=== PATIENT | male | born 1955 | race Caucasian/White ===

== ENCOUNTER 2023-08-14 14:40 | Outpatient (CLI) | payer MEDICARE, BC, SELFPAY | END 2023-08-14 14:41 | disposition home or self-care (01) | LOC: AMB 08-19 15:08 | PROVIDERS: PCP Family Medicine; Visit Provider Family Medicine | DX: S09.93XA Unspecified injury of face, initial encounter (principal); V19.3XXA Pedal cyclist (driver) (passenger) injured in unspecified nontraffic accident, initial encounter; Y92.488 Other paved roadways as the place of occurrence of the external cause; Y93.55 Activity, bike riding | CPT/HCPCS: A0425; A0429; A0434 ==

== ENCOUNTER 2023-08-14 14:46 | Emergency (ER) | payer MEDICARE, BC, SELFPAY ==
[2023-08-14] VITALS (12 sets, daily range): BP systolic 128–159; BP diastolic 76–97; PULSE 77–130; RESP 12–19; TEMP 35.7; O2SAT 92–98; BMI 23.9
--- NOTE | 2023-08-14 | CRLHL7_ITS ---
For Patients: As a result of the Century Cures Act, medical imaging exams and procedure reports are released immediately into your electronic medical record. You may view this report before your referring provider. If you have questions, please contact your health care provider. INDICATION: Post intubation. TECHNIQUE: Chest 1 view. COMPARISON: Chest radiograph 08/14/2023 at 2:54 p.m. FINDINGS: Endotracheal tube with tip 5.4 cm above the bipin. No focal consolidation, pleural effusion, or pneumothorax. Normal heart size. Pulmonary vascular congestion. Chronic appearing deformity of the distal right clavicle. IMPRESSION: 1. Endotracheal tube with tip in satisfactory position. 2. Pulmonary vascular congestion. Dictated by Flory Santos MD @ 08/14/2023 3:43:12 PM (Electronically Signed)
--- NOTE | 2023-08-14 | CRLHL7_ITS ---
For Patients: As a result of the Century Cures Act, medical imaging exams and procedure reports are released immediately into your electronic medical record. You may view this report before your referring provider. If you have questions, please contact your health care provider. INDICATION: Injury COMPARISON: None TECHNIQUE: Single-view study August 14, 2023 at 2:54 p.m. FINDINGS: TUBES AND LINES: None. HEART AND MEDIASTINUM: The heart size is normal. The mediastinal contour appears normal for patient age. LUNGS AND PLEURAL SPACES: Mild vascular congestion without overt edema.The pleural spaces are unremarkable. OSSEOUS STRUCTURES: Age-appropriate appearance. No acute focal finding. IMPRESSION: Mild vascular congestion without overt edema. Dictated by Jeronimo Messer MD @ 08/14/2023 3:36:21 PM (Electronically Signed)
[2023-08-14] MEDS: 0.9 % SODIUM CHLORIDE 1000 ml 1,000 ML 2000 ML IV (14:50)
[2023-08-14] MEDS: SUCCINYLCHOLINE 20 MG/ML INJ 40 MG IVP (15:00)
[2023-08-14] MEDS: PROPOFOL 10 MG/ML INJ 200 MG IVP (15:01)
[2023-08-14] MEDS: MIDAZOLAM HCL 1 MG/ML inj 2 MG IVP ×2 (15:04)
[2023-08-14] MEDS: PROPOFOL 10 MG/ML INJ 100 MG IVP (15:13)
[2023-08-14] MEDS: propofoL 1,000 MG/100 ML ML 24 MG IVPB (15:13)
[2023-08-14] MEDS: fentaNYL 100 MCG/2 ML inj IVP (15:23)
[2023-08-14] MEDS: 0.9 % SODIUM CHLORIDE 1000 ml 1,000 ML 6000 ML IV (15:30)
--- NOTE | 2023-08-14 15:30 | ED.NURSE ---
patient arrived via EMS cut clothes off, repositioned placed 2 #18 saline locks in the LAC and L forearm. able to draw labs from the LAC and sent to lab. pulse ox 92% on room air and Dr. Ferguson in to along with RT to manage airway. difficult to assess with bleeding and nonverbal. see TTA record.
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
--- NOTE | 2023-08-14 15:50 | ED.NURSE ---
See trauma record for pt report. MD Rodriguez, MD Ferguson, GUARD RANGE Carly Palomino, SONIA Palomino, RT Buffy Cameron, pharmacist, RN Latonya, RN Brayden, RN Claudia all at bedside managing pt care.
--- NOTE | 2023-08-14 16:04 | ED.NURSE ---
RN to RN handoff given to [facility] order takers supervisor.
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
--- NOTE | 2023-08-16 12:38 | PC.NURSE ---
accessed chart for [facility] clinic to try to find where pt was transferred to
== END 2023-08-14 15:40 | disposition other institution (70) ==
PROVIDERS: Emergency Provider Student in an Organized Health Care Education/Training Program; PCP Family Medicine
DX: S09.93XA Unspecified injury of face, initial encounter (principal); V18.0XXA Pedal cycle driver injured in noncollision transport accident in nontraffic accident, initial encounter
CPT/HCPCS: 31500; 36415; 71045; 99284; 99291; G0390; J0330; J2250; J2704; J3010; J7030

== ENCOUNTER 2023-08-14 15:12 | Outpatient (CLI) | payer MEDICARE, BC, SELFPAY | END 2023-08-14 15:13 | disposition home or self-care (01) | LOC: AMB 08-19 15:20 | PROVIDERS: PCP Family Medicine; Visit Provider Family Medicine | DX: S09.93XS Unspecified injury of face, sequela (principal) | CPT/HCPCS: A0425; A0434 ==

== ENCOUNTER 2023-10-16 13:41 | Outpatient (CLI) | payer MEDICARE, BC, SELFPAY ==
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
== END 2023-10-16 13:42 | disposition home or self-care (01) ==
PROVIDERS: PCP Family Medicine; Visit Provider Registered Nurse
DX: S02.109A Fracture of base of skull, unspecified side, initial encounter for closed fracture (principal); S12.9XXA Fracture of neck, unspecified, initial encounter; I60.9 Nontraumatic subarachnoid hemorrhage, unspecified; R13.10 Dysphagia, unspecified; Z86.79 Personal history of other diseases of the circulatory system
CPT/HCPCS: 70450; 70551; 72125

== ENCOUNTER 2023-11-10 12:47 | Outpatient (CLI) | payer MEDICARE, BC, SELFPAY ==
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
--- NOTE | 2023-11-10 13:08 | CRLHL7_ITS ---
For Patients: As a result of the Century Cures Act, medical imaging exams and procedure reports are released immediately into your electronic medical record. You may view this report before your referring provider. If you have questions, please contact your health care provider. Indication: Fracture Comparison: None available. Technique: AP and lateral views cervical spine were obtained. Findings: The cervical vertebral body heights are grossly maintained with straightening of the normal cervical lordosis. There is no significant spondylolisthesis. No definite, displaced fracture is identified. There is moderate degenerative disc height loss and marginal osteophyte formation. There is moderate facet arthrosis. There is no prevertebral soft tissue swelling. Demonstration of a tracheostomy in satisfactory position. Impression: Moderate degenerative changes of the cervical spine without acute osseous abnormality. Dictated by Gustavo Howard MD @ 11/10/2023 3:04:01 PM (Electronically Signed)
[2023-11-10 13:27] LABS: Creatinine* 0.6 mg/dL (0.5-1.5); Estimated Glomerular Filt Rate 106 ml/min
== END 2023-11-10 12:48 | disposition home or self-care (01) ==
LOC: CT 12:47
PROVIDERS: PCP Family Medicine; Visit Provider Neurological Surgery
DX: S02.109A Fracture of base of skull, unspecified side, initial encounter for closed fracture (principal); S12.9XXA Fracture of neck, unspecified, initial encounter
CPT/HCPCS: 36415; 70498; 72040; 82565; Q9967

== ENCOUNTER 2023-11-11 07:10 | Emergency (ER) | payer MEDICARE, BC, SELFPAY ==
[2023-11-11 07:19] VITALS: BP 141/100; PULSE 90; RESP 22; TEMP 36.4; O2SAT 97
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
--- NOTE | 2023-11-11 07:31 | CRLHL7_ITS ---
For Patients: As a result of the Cures Act, medical imaging exams and procedure reports are released immediately into your electronic medical record. You may view this report before your referring provider. If you have questions, please contact your health care provider. INDICATION: Cough. TECHNIQUE: Two views (3 images COMPARISON: 08/14/2023. FINDINGS: In the interval since the prior examination tracheal tube has been exchanged for a tracheostomy tube which overlies the tracheal air column. The tip of the tracheostomy tube ends well above the bipin, in good position. Heart and mediastinum: Normal transverse dimension of the cardiac silhouette. No significant abnormalities. Lungs and pleural spaces: Clear lungs and pleural spaces. Bilateral nipple shadows are noted incidentally overlying the lung bases on the frontal view of the chest. Bones and soft tissues: No acute findings. IMPRESSION: No radiographic findings to explain the clinical history. Incidental findings described above. Dictated by Gareth Mejias MD @ 11/11/2023 8:11:22 AM (Electronically Signed)
[2023-11-11 07:48] LABS: Basophils Absolute Auto 0.05 K/uL (0.00-0.30); Basophils Percent Auto 1.1 % (0.0-3.0); Eosinophils Absolute Auto 0.12 K/uL (0.00-0.50); Eosinophils Percent Auto 2.6 % (0.0-7.0); Hematocrit 40.6 % (37.0-53.0); Hemoglobin* 13.2 gm/dL (13.5-17.5); Lymphocytes Absolute Auto 1.41 K/uL (0.90-2.90); Lymphocytes Percent Auto 30.7 % (20-44); Mean Corpuscular HGB Conc 33 gm/dL (32-36); Mean Corpuscular Hemoglobin 31 pg (26-34); Mean Corpuscular Volume 96 fL (80-100); Monocytes Percent Auto 9.2 % (0.0-11.0); Neutrophils Absolute Auto 2.59 K/uL (1.7-7.0); Neutrophils Percent Auto 56.4 % (42.0-72.0); Platelet Count* 233 K/uL (140-440); RDW Coefficient of Variation % 13.5 % (11.5-15.5); Red Blood Count 4.25 m/uL (4.30-5.90); White Blood Count* 4.59 K/uL (4.50-11.00)
[2023-11-11 08:00] LABS: Slide Review Reflex No
[2023-11-11 08:05] LABS: Chloride* 98 mmol/L (96-114); Potassium* 5.2 mmol/L (3.6-5.1); Sodium* 138 mmol/L (135-149)
[2023-11-11 08:08] LABS: Anion Gap 7 mEq/L (7-15); Blood Urea Nitrogen* 19 mg/dL (7-30); Carbon Dioxide* 33 mmol/L (20-32); Creatinine* 0.6 mg/dL (0.5-1.5); Estimated Glomerular Filt Rate 106 ml/min
[2023-11-11 08:09] LABS: Calcium* 9.6 mg/dL (8.4-10.6); Glucose* 85 mg/dL (60-115)
--- NOTE | 2023-11-11 11:27 | ED.NURSE ---
Patient and his call back. There is bleeding again with coughing. Patient did just have another coughing fit. Bleeding is exactly the same as before; bright red, minimal, mixed with mucous. Dr. Aguilera consulted, she is calling Dr. Muñiz again to consult. Per Dr. Muñiz, monitor bleeding for now. If it worsens, difficulty breathing, etc recommends patient returning to facility that placed the trach. Spoke with patient/ with above recommendations. They verbalize understanding, will monitor for now and return to [facility] for evaluation if bleeding continues or if above concerns arise.
== END 2023-11-11 09:06 | disposition home or self-care (01) ==
PROVIDERS: Emergency Provider Family Medicine; PCP Family Medicine
DX: R04.2 Hemoptysis (principal); J95.01 Hemorrhage from tracheostomy stoma
CPT/HCPCS: 36415; 71046; 80048; 85025; 99283; 99284

== ENCOUNTER 2023-11-19 12:39 | Emergency (ER) | payer MEDICARE, BC, SELFPAY ==
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
[2023-11-19 12:57] VITALS: BP 118/89; PULSE 90; RESP 20; TEMP 36.4; O2SAT 99
--- NOTE | 2023-11-19 13:33 | RESP.RT ---
Pt's trach came out accidently. 4.0cuffed shiley placed by provider. balloon up. Pt with good BBS, breathing easily. Put inner cannula in, deflated the balloon, and capped trach. Pt then able to speak. Cleaned up site, with some suctioning. Pt able to spontaneous cough and clear sputum. Pt reports that this feels right. has the initial trach. Will connect with homecare nurse and let her know, as she may want to put the cuffless trach back in. Per , awaiting pt to pass a swallow test before the trach can be removed.
== END 2023-11-19 13:36 | disposition home or self-care (01) ==
LOC: ED 13:27
PROVIDERS: Emergency Provider Family Medicine; PCP Family Medicine
DX: Z93.0 Tracheostomy status (principal)
CPT/HCPCS: 99283

== ENCOUNTER 2023-11-19 23:08 | Emergency (ER) | payer MEDICARE, BC, SELFPAY ==
[2023-11-19 23:14] VITALS: BP 144/86; RESP 36; BMI 22.9
[2023-11-19 23:19] VITALS: BP 155/55; O2SAT 93
[2023-11-19 23:25] VITALS: O2SAT 93
[2023-11-19] MEDS: TRANEXAMIC ACID 100 MG/ML INJ 1000 MG TOPICAL (23:25)
--- NOTE | 2023-11-19 23:29 | PC.NURSE ---
Pt was here with earlier in day as trach fell out, bumped with his thumb while taking off straps to clean. Pt states they changed it out and went home. Pt then coughed while at home tonight and area around track was bleeding again, large clot suctioned around trach opening, actively bleeding. Gauze and TXA to gauze. Pt alert, oriented, breathing regular and RA sats 99%. Pt. continues to cough up blood at times but able to clear.
--- NOTE | 2023-11-19 23:33 | ED.NURSE ---
Report given to charge nurse in ER at [facility].
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
== END 2023-11-20 | disposition short-term general hospital (02) ==
PROVIDERS: Emergency Provider Emergency Medicine Emergency Medical Services; PCP Family Medicine
DX: J95.01 Hemorrhage from tracheostomy stoma (principal)
CPT/HCPCS: 94761; 99283; 99284; 99285

== ENCOUNTER 2023-11-19 23:46 | Outpatient (CLI) | payer MEDICARE, BC, SELFPAY | END 2023-11-19 23:47 | disposition home or self-care (01) | LOC: AMB 11-20 11:40 | PROVIDERS: PCP Family Medicine; Visit Provider Emergency Medicine Emergency Medical Services | DX: J95.01 Hemorrhage from tracheostomy stoma (principal) | CPT/HCPCS: A0425; A0426 ==

== ENCOUNTER 2023-12-19 14:21 | Emergency (ER) | payer MEDICARE, BC, SELFPAY ==
[2023-12-19] VITALS (7 sets, daily range): BP systolic 121–151; BP diastolic 86–104; PULSE 80–89; RESP 16; TEMP 36.8; O2SAT 96–100
--- NOTE | 2023-12-19 14:38 | CRLHL7_ITS ---
For Patients: As a result of the Century Cures Act, medical imaging exams and procedure reports are released immediately into your electronic medical record. You may view this report before your referring provider. If you have questions, please contact your health care provider. INDICATION: Fall TECHNIQUE: Noncontrast axial CT of the head. Coronal and sagittal reformats. Bone and soft tissue algorithms. COMPARISON: MRI brain and CT head 10/16/2023 FINDINGS: Similar configuration of the superiorly displaced right occipital condyle fracture. No acute intracranial hemorrhage or abnormal extra-axial fluid collection. No midline shift, hydrocephalus, or herniation. Preserved cope-white matter differentiation. Incidental left asymmetric basal ganglia mineralization. Midline structures are unremarkable. Major intracranial vasculature is unremarkable for technique. Visualized paranasal sinuses and mastoid air cells are clear. Unremarkable orbits. IMPRESSION: 1. No CT evidence of new/acute intracranial abnormality, or significant interval change relative to 10/16/2023. 2. Stable appearance of the mildly displaced right occipital condyle fracture. Please note that all CT scans at this facility use dose modulation, iterative reconstruction, and/or weight-based dosing when appropriate to reduce radiation dose to as low as reasonably achievable. Dictated by Liz Wright MD @ 12/19/2023 3:50:47 PM (Electronically Signed)
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
[2023-12-19 15:30] LABS: Basophils Absolute Auto 0.06 K/uL (0.00-0.30); Basophils Percent Auto 1.1 % (0.0-3.0); Eosinophils Absolute Auto 0.09 K/uL (0.00-0.50); Eosinophils Percent Auto 1.7 % (0.0-7.0); Hematocrit 39.8 % (37.0-53.0); Hemoglobin* 12.6 gm/dL (13.5-17.5); Lymphocytes Absolute Auto 1.32 K/uL (0.90-2.90); Lymphocytes Percent Auto 24.8 % (20-44); Mean Corpuscular HGB Conc 32 gm/dL (32-36); Mean Corpuscular Hemoglobin 31 pg (26-34); Mean Corpuscular Volume 98 fL (80-100); Monocytes Percent Auto 8.6 % (0.0-11.0); Neutrophils Absolute Auto 3.39 K/uL (1.7-7.0); Neutrophils Percent Auto 63.8 % (42.0-72.0); Platelet Count* 158 K/uL (140-440); RDW Coefficient of Variation % 14.2 % (11.5-15.5); Red Blood Count 4.06 m/uL (4.30-5.90); White Blood Count* 5.32 K/uL (4.50-11.00)
[2023-12-19 15:46] LABS: Slide Review Reflex No
[2023-12-19 15:57] LABS: PCR FLU A Negative PCR FLU A (Negative); PCR FLU B Negative PCR FLU B (Negative); PCR RSV Negative PCR RSV (Negative); SARS PCR* Negative SARS-CoV-2 (Negative)
[2023-12-19 16:01] LABS: Chloride* 99 mmol/L (96-114); Potassium* 3.9 mmol/L (3.6-5.1); Sodium* 137 mmol/L (135-149)
[2023-12-19 16:03] LABS: Alanine Aminotransferase* 36 U/L (4-50); Alkaline Phosphatase* 71 U/L (40-150); Anion Gap 6 mEq/L (7-15); Bilirubin Total* 0.6 mg/dL (0.1-1.5); Blood Urea Nitrogen* 25 mg/dL (7-30); Carbon Dioxide* 32 mmol/L (20-32); Creatinine* 0.6 mg/dL (0.5-1.5); Estimated Glomerular Filt Rate 105 ml/min
[2023-12-19 16:04] LABS: Calcium* 8.8 mg/dL (8.4-10.6); Glucose* 92 mg/dL (60-115); Magnesium* 2.3 mg/dL (1.5-2.6)
[2023-12-19 16:15] LABS: Aspartate Amino Transferase* 45 U/L (12-35)
== END 2023-12-19 16:16 | disposition home or self-care (01) ==
PROVIDERS: Emergency Provider Student in an Organized Health Care Education/Training Program; PCP Family Medicine
DX: R55 Syncope and collapse (principal)
CPT/HCPCS: 36415; 70450; 72125; 80053; 83735; 84484; 85025; 87631; 93005; 99283; 99284; 99285

== ENCOUNTER 2023-12-20 10:14 | Inpatient (IN) | payer MEDICARE, BC, SELFPAY ==
[2023-12-20] VITALS (35 sets, daily range): BP systolic 97–135; BP diastolic 62–89; PULSE 88–115; RESP 20–22; TEMP 36.3–38.8; O2SAT 93–98; BMI 18.9; BMI 19.3
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
--- NOTE | 2023-12-20 11:40 | CRLHL7_ITS ---
For Patients: As a result of the 21st Century Cures Act, medical imaging exams and procedure reports are released immediately into your electronic medical record. You may view this report before your referring provider. If you have questions, please contact your health care provider. INDICATION: FEVER, N/V, COMPLEX HX, FEEDING TUBE, COUGH, HERNIATED STOMACH. 20CC GASTROGRAFIN INJECTED IN J TUBE PRIOR TO SCAN PER DR. CASTILLO ([facility]) TECHNIQUE: CT chest, abdomen and pelvis acquired with 60 cc Isovue 370 IV contrast. Oral contrast administered as above. COMPARISON: None. FINDINGS: CHEST Lungs and pleura: Bibasilar multilobar (right middle lobe, right lower lobe and left lower lobe) bronchocentric ground-glass opacities. Anterior basal segment right lower lobe tree-in-bud opacities consistent with nonspecific small airways disease. Posterior segment right lower lobe subsegmental bronchiectasis also consistent with nonspecific small airways disease. Posterior segment left lower lobe subpleural reticular opacities and architectural distortion consistent with nonspecific minor fibrosis. No pleural effusion. No pleural thickening. Heart and vasculature: Heart size is normal. Thoracic aorta and pulmonary artery are normal in caliber. Lymph node/mediastinum: No mediastinal, hilar, or axillary adenopathy. Chest wall: Normal. Bones: No suspicious bone lesions. ABDOMEN AND PELVIS: Liver: Normal in caliber and attenuation. No masses. Gallbladder and bile ducts: Unremarkable. Pancreas: Unremarkable. Spleen: Normal in caliber. No masses. Adrenal glands: Unremarkable. No masses. Kidneys: Incidental too small characterize posterior interpolar right renal cortical round circumscribed hypodense finding with non circumferential a posterior mural hyperdensity consistent with calcification. This may represent a cyst, for example. GI tract: Streak artifact associated with concentrated enteric contrast material in the dependent gastric fundus somewhat limits interpretation of the regional anatomy in the left upper quadrant. Percutaneous gastrojejunostomy tube. Nondilated bowel. Sigmoid diverticulosis. No acute inflammatory changes. Vasculature: Unremarkable. Mesenteric arteries are patent. Lymph nodes: No lymphadenopathy. Omentum/peritoneum/retroperitoneum/abdominal wall: No masses or infiltration. No free air or significant free fluid. Pelvic organs: Unremarkable. Bones: No suspicious bone lesions. Transitional lumbosacral anatomy. Mild disc degeneration at the lumbosacral junction. IMPRESSION: 1. Basilar predominant bilateral multilobar bronchocentric ground-glass opacities and anterior basal segment right lower lobe tree-in-bud opacities consistent with nonspecific airways disease. Differential diagnostic considerations include aspiration pneumonitis. No coalescent pulmonary consolidation to indicate lobar pneumonia. No parapneumonic pleural effusion. 2. There are no other imaging findings to explain fever. 3. Incidental findings described above. Please note that all CT scans at this facility use dose modulation, iterative reconstruction, and/or weight-based dosing when appropriate to reduce radiation dose to as low as reasonably achievable. Dictated by Gareth Mejias MD @ 12/20/2023 1:39:33 PM (Electronically Signed)
[2023-12-20 11:54] LABS: Lactate* 2.9 mmol/L (0.5-1.9)
[2023-12-20 12:03] LABS: Basophils Percent Auto 0.2 % (0.0-3.0); Eosinophils Percent Auto 0.3 % (0.0-7.0); Hematocrit 37.7 % (37.0-53.0); Hemoglobin* 12.1 gm/dL (13.5-17.5); Immature Granulocytes Pct Auto 0.1 %; Lymphocytes Percent Auto 4.9 % (20-44); Mean Corpuscular HGB Conc 32 gm/dL (32-36); Mean Corpuscular Hemoglobin 31 pg (26-34); Mean Corpuscular Volume 97 fL (80-100); Monocytes Percent Auto 5.1 % (0.0-11.0); Neutrophils Percent Auto 89.4 % (42.0-72.0); Platelet Count* 169 K/uL (140-440); Red Blood Count 3.88 m/uL (4.30-5.90); White Blood Count* 12.34 K/uL (4.50-11.00)
[2023-12-20] MEDS: 0.9 % SODIUM CHLORIDE 1000 ml 1,000 ML 500 ML IV ×2 (12:05→15:40)
[2023-12-20 12:08] LABS: Slide Review Reflex No
[2023-12-20 12:14] LABS: Chloride* 102 mmol/L (96-114)
[2023-12-20 12:15] LABS: Albumin* 4.3 g/dL (3.3-5.0); Potassium* 4.1 mmol/L (3.6-5.1); Sodium* 139 mmol/L (135-149)
[2023-12-20] MEDS: ACETAMINOPHEN 160 MG/5 ML CUP 480 MG PO ×2 (12:15→13:49)
[2023-12-20 12:17] LABS: Creatinine* 0.5 mg/dL (0.5-1.5); Est. Creatinine Clearance* 63.05; Estimated Glomerular Filt Rate 111 ml/min
[2023-12-20 12:18] LABS: Alanine Aminotransferase* 37 U/L (4-50); Alkaline Phosphatase* 70 U/L (40-150); Anion Gap 10 mEq/L (7-15); Aspartate Amino Transferase* 44 U/L (12-35); Bilirubin Total* 0.7 mg/dL (0.1-1.5); Blood Urea Nitrogen* 26 mg/dL (7-30); Carbon Dioxide* 27 mmol/L (20-32); Glucose* 99 mg/dL (60-115); Total Protein* 7.3 g/dL (6.0-8.3)
[2023-12-20 12:21] LABS: C Reactive Protein* 0.7 mg/dL (0.5-1.0)
[2023-12-20 12:35] LABS: Procalcitonin* 0.14 ng/mL (<0.50)
[2023-12-20 12:53] LABS: PCR FLU A Negative PCR FLU A (Negative); PCR FLU B Negative PCR FLU B (Negative); PCR RSV Negative PCR RSV (Negative); SARS PCR* Negative SARS-CoV-2 (Negative)
[2023-12-20 12:55] LABS: Troponin I* < 0.01 ng/mL (0.01-0.04)
[2023-12-20 13:42] LABS: Appearance Urine Clear (Clear); Bilirubin Urine Negative (Negative); Blood Urine Negative (Negative); Color Urine Yellow (Yellow); Glucose Urine Negative (Negative); Ketones Urine Negative (Negative); Leukocyte Esterase Urine Negative (Negative); Nitrite Urine Negative (Negative); Protein Urine Negative (Negative); Urobilinogen Urine 0.2 (0.2-1.0); pH Urine 8.5 (5.0-8.5)
[2023-12-20] MEDS: PIPERACILLIN/TAZOBACTAM 3.375 GM in 0.9 % SODIUM CHLORIDE Mini-bag 100 ML IVPB ×2 (14:01→20:20)
[2023-12-20 14:02] LABS: RBC Urine 0-2 (0-2); WBC Urine 0-2 (0-5)
--- NOTE | 2023-12-20 14:54 | ED.NURSE ---
Tylenol administered through G tube.
--- NOTE | 2023-12-20 15:59 | ED.NURSE ---
pt report given to simba ESTEBAN
[2023-12-20 19:11] LABS: Appearance Urine Clear (Clear); Bilirubin Urine Negative (Negative); Blood Urine Negative (Negative); Color Urine Yellow (Yellow); Glucose Urine Negative (Negative); Ketones Urine Negative (Negative); Leukocyte Esterase Urine Negative (Negative); Nitrite Urine Negative (Negative); Protein Urine Negative (Negative); Specific Gravity Urine 1.015 (1.000-1.030); Urobilinogen Urine 0.2 (0.2-1.0)
[2023-12-20 19:21] LABS: pH Urine >= 9.0 (5.0-8.5)
[2023-12-20] MEDS: MIRTAZAPINE 15 MG TABLET G-TUBE (21:13)
[2023-12-20] MEDS: SODIUM CHLORIDE 0.9 % (FLUSH) 10 ML SYRINGE 5 ML IVF (21:13)
[2023-12-20] MEDS: FAMOTIDINE 20 MG TABLET G-TUBE (21:13)
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
[2023-12-21] MEDS: PIPERACILLIN/TAZOBACTAM 3.375 GM in 0.9 % SODIUM CHLORIDE Mini-bag 100 ML IVPB ×4 (02:24→20:26)
[2023-12-21 02:45] VITALS: BP 121/79; PULSE 93; RESP 20; TEMP 36.8; O2SAT 95
--- NOTE | 2023-12-21 06:45 | PC.NURSE ---
pleasant and cooperative. indep in rm. calls appropriately. hoarse productive cough, pt clearing out large amount of thick sputum.
[2023-12-21 06:51] LABS: Basophils Absolute Auto 0.04 K/uL (0.00-0.30); Basophils Percent Auto 0.4 % (0.0-3.0); Eosinophils Absolute Auto 0.14 K/uL (0.00-0.50); Eosinophils Percent Auto 1.6 % (0.0-7.0); Hematocrit 32.8 % (37.0-53.0); Hemoglobin* 10.6 gm/dL (13.5-17.5); Immature Granulocytes Abs Auto 0.02 K/uL (0.00-0.30); Immature Granulocytes Pct Auto 0.2 %; Lymphocytes Percent Auto 9.8 % (20-44); Mean Corpuscular HGB Conc 32 gm/dL (32-36); Mean Corpuscular Hemoglobin 32 pg (26-34); Mean Corpuscular Volume 98 fL (80-100); Monocytes Percent Auto 5.8 % (0.0-11.0); Neutrophils Percent Auto 82.2 % (42.0-72.0); Platelet Count* 146 K/uL (140-440); RDW Coefficient of Variation % 14.5 % (11.5-15.5); Red Blood Count 3.35 m/uL (4.30-5.90); White Blood Count* 8.92 K/uL (4.50-11.00)
[2023-12-21 07:00] VITALS: BP 125/86; PULSE 90; RESP 20; TEMP 36.7; O2SAT 95
[2023-12-21 07:24] LABS: Slide Review Reflex No
[2023-12-21] MEDS: SODIUM CHLORIDE 0.9 % (FLUSH) 10 ML SYRINGE 5 ML IVF ×2 (08:38→20:25)
[2023-12-21 09:13] VITALS: BMI 19.5
[2023-12-21 11:00] VITALS: BP 127/81; PULSE 88; RESP 16; O2SAT 96
--- NOTE | 2023-12-21 13:11 | NUTR.NU ---
RDN with tubefeeding recommendations for patient and . Tubefeeding Recommendations: RDN recommends continuing with tubefeeding regimen at this time: Compleat Peptide 1.5 @ 100 mL/hr x 17 hrs with 175 mL fluid flushes x6 daily via G-tube with 30 mL fluid flushes before and after feedings via J-tube. This regimen is currently meeting estimated calorie, protein, and fluid needs. Recommending receiving feeding during the day x17 hours, off during the night. Head of bed elevated at least 45 degrees to reduce risk of aspiration. Do not advance tubefeeding at this time. Patient and to follow-up with RDN as an outpatient. RDN's contact information provided and patient/ encouraged to call with questions.
[2023-12-21] MEDS: METOCLOPRAMIDE 10 MG TABLET G-TUBE ×2 (13:50→19:56)
[2023-12-21] MEDS: OMEPRAZOLE 20 MG CAPSULE DR G-TUBE (13:51)
[2023-12-21 15:00] VITALS: PULSE 85
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
[2023-12-21 19:13] LABS: S pneumo Ag Urine S. pneumo Negative (Negative)
[2023-12-21 19:14] LABS: Legionella pneumo Ag Urine L. pneumo Negative (Negative)
--- NOTE | 2023-12-21 20:23 | PC.NURSE ---
End of shift [id number] - Pt alert, oriented, and cooperative during shift. Pt up independently in room and uses call light appropriately. Tolerating NPO diet with tube feeding. Pt reports no nausea or vomiting, but uses a cup to spit saliva and phlegm that he cannot swallow. Pt denies pain, SOB. VSS, afebrile, family at bedside. Tube site dressing changed per pt request. Pt reported feeling bubbles in stomach and reported burping and passing gas. Feeding schedule updated per [employer] and PA. Pt reports tolerating well. Pt appears to be resting comfortably at end of shift.
[2023-12-21] MEDS: MIRTAZAPINE 15 MG TABLET G-TUBE (20:26)
[2023-12-21 20:41] VITALS: BP 123/8; PULSE 84; RESP 18; O2SAT 95
[2023-12-21 23:00] VITALS: BP 123/88; PULSE 94; RESP 18; TEMP 36.6; O2SAT 95
[2023-12-22 01:00] VITALS: PULSE 79
[2023-12-22] MEDS: PIPERACILLIN/TAZOBACTAM 3.375 GM in 0.9 % SODIUM CHLORIDE Mini-bag 100 ML IVPB ×2 (02:20→09:20)
[2023-12-22 03:00] VITALS: BP 118/86; PULSE 89; RESP 18; O2SAT 95
[2023-12-22] MEDS: OMEPRAZOLE 20 MG CAPSULE DR G-TUBE (06:27)
[2023-12-22] MEDS: METOCLOPRAMIDE 10 MG TABLET G-TUBE ×2 (06:28→11:35)
[2023-12-22 07:00] VITALS: BP 123/93; PULSE 82; PULSE 86; RESP 18; TEMP 36.6; O2SAT 96
[2023-12-22] MEDS: FINASTERIDE 5 MG TABLET G-TUBE (09:21)
--- NOTE | 2023-12-22 11:17 | NUTR.NU ---
Nutrition Follow-up: SHELIAN followed-up with patient and related to tubefeeding regimen. Patient may be discharging home today. Current weight 141lb 8oz; 2lb 8oz loss from yesterday. BMI 19.2kg/m2. Patient and had no questions at this time for RDN. reports they plan on following up with patient's surgeon related to GJtube. Patient and had no current questions regarding tubefeeding regimen at this time. Patient plans on receiving feedings during the day x17 hours, and off for 7 hours at night. Will also try to have head elevated at night, using OT's recommendations. Patient and saw ARNOLD Whittaker as outpatient on 12/08/2023 - will attempt to schedule patient with ARNOLD again in the 2-6 weeks. Patient and has ARNOLD's contact information and were encouraged to call with questions or concerns.
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
--- NOTE | 2023-12-22 15:53 | NUTR.NU ---
Nutrition follow-up: Patient is being discharged home this afternoon. Met with patient and spouse, Kerry. Kerry reports that they haven't received a delivery of tube feeding formula. This was supposed to be delivered on 12/18. She has been in touch with the supply company, [employer]. Patient does have enough formula to get him through until 12/26. Kerry reports [employer] plans to send the formula out tomorrow (12/23). Kerry reports they have continually had trouble with getting formula on time from this supply company. She is wondering if there are other companies they can use. This RDN recommended to check with patient's insurance to see if they could switch to [employer] or [facility]. They plan to look into this. Patient and spouse were encouraged to contact RDN with further questions/concerns.
--- NOTE | 2023-12-22 16:06 | PC.NURSE ---
shift note: vss stable. dc'd IV intact. reviewed dc instructions and copies sent with pt at dc. Personal belongings sent with pt at dc
== END 2023-12-22 15:30 | disposition home or self-care (01) | DRG 179 ==
LOC: ED 15:07 → MEDSURG 15:45
PROVIDERS: Admitting Provider Family Medicine; Emergency Provider Family Medicine; PCP Family Medicine; Visit Provider Family Medicine
DX: J69.0 Pneumonitis due to inhalation of food and vomit (principal); R55 Syncope and collapse; Z93.1 Gastrostomy status; Z93.4 Other artificial openings of gastrointestinal tract status; R13.10 Dysphagia, unspecified; H53.2 Diplopia; S09.90XS Unspecified injury of head, sequela; S12.000S Unspecified displaced fracture of first cervical vertebra, sequela; S02.92XS Unspecified fracture of facial bones, sequela
CPT/HCPCS: 36415; 70450; 71260; 72125; 74177; 80048; 80053; 81001; 81003; 83605; 83735; 84145; 84484; 85025; 85027; 86140; 87040; 87081; 87449; 87631; 87899; 93005; 94664; 94761; 97165; 97535; 99283; 99284; 99285; A9270; J2543; J7030; Q9967

== ENCOUNTER 2024-01-17 21:30 | Inpatient (IN) | payer MEDICARE, BC, SELFPAY ==
[2024-01-17] VITALS (14 sets, daily range): BP systolic 96–143; BP diastolic 79–91; PULSE 112–118; RESP 20–24; TEMP 39.4–39.9; O2SAT 88–97; BMI 19.0
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
[2024-01-17 22:14] LABS: Lactate* 2.1 mmol/L (0.5-1.9)
--- NOTE | 2024-01-17 22:21 | XR_ITS ---
Patient: GIOVANA CARRERA Facility:?[facility] Patient ID:?[id number] Site Patient ID:?[id number]. Site :?[id number] Study:?XRay-Chest PORTABLE-01/17/2024 10:55:10 PM Ordering Physician:JAZMIN Final Report: Indication: Cough, hypoxia, history of aspiration Technique: Single-view chest Comparison: Chest radiograph performed 11/11/2023 Findings/Impression: Linear hazy opacities in the bilateral lower lungs, can be compatible with reported history of aspiration and possible pneumonitis. No organized consolidation appreciated. Dictated by Sunil Warren MD @ 01/17/2024 11:04:41 PM Signed by:?Sunil Warren MD @01/17/2024 11:04:41 PM (Electronic Signature)
[2024-01-17 22:25] LABS: PCR FLU A Negative PCR FLU A (Negative); PCR FLU B Negative PCR FLU B (Negative); PCR RSV Negative PCR RSV (Negative); SARS PCR* Negative SARS-CoV-2 (Negative)
[2024-01-17] MEDS: 0.9 % SODIUM CHLORIDE 1000 ml 1,000 ML IV (22:29)
[2024-01-17] MEDS: METOCLOPRAMIDE HCL 10 MG in 0.9 % SODIUM CHLORIDE 100 ml 100 ML 306 MG IVPB (22:44)
[2024-01-17 22:46] LABS: HCO3 VBG 34 mmol/L (21-28); PCO2 VBG 56 mmHG (40-50); PO2 VBG < 30.1 mmHG (25-47); pH VBG 7.391 (7.32-7.43)
[2024-01-17 23:04] LABS: Basophils Absolute Auto 0.01 K/uL (0.00-0.30); Basophils Percent Auto 0.1 % (0.0-3.0); Eosinophils Absolute Auto 0.14 K/uL (0.00-0.50); Eosinophils Percent Auto 1.3 % (0.0-7.0); Hematocrit 39.9 % (37.0-53.0); Hemoglobin* 12.9 gm/dL (13.5-17.5); Immature Granulocytes Abs Auto 0.07 K/uL (0.00-0.30); Immature Granulocytes Pct Auto 0.6 %; Lymphocytes Percent Auto 4.7 % (20-44); Mean Corpuscular HGB Conc 32 gm/dL (32-36); Mean Corpuscular Hemoglobin 31 pg (26-34); Mean Corpuscular Volume 96 fL (80-100); Monocytes Percent Auto 2.3 % (0.0-11.0); Platelet Count* 145 K/uL (140-440); Red Blood Count 4.17 m/uL (4.30-5.90)
[2024-01-17 23:07] LABS: Chloride* 93 mmol/L (96-114); Potassium* 4.3 mmol/L (3.6-5.1); Sodium* 131 mmol/L (135-149)
[2024-01-17 23:09] LABS: Slide Review Reflex No
[2024-01-17 23:10] LABS: Creatinine* 0.6 mg/dL (0.5-1.5); Estimated Glomerular Filt Rate 105 ml/min
[2024-01-17 23:11] LABS: Anion Gap 6 mEq/L (7-15); Blood Urea Nitrogen* 24 mg/dL (7-30); Calcium* 9.3 mg/dL (8.4-10.6); Carbon Dioxide* 32 mmol/L (20-32); Glucose* 121 mg/dL (60-115)
[2024-01-17 23:14] LABS: C Reactive Protein* 8.3 mg/dL (0.5-1.0)
[2024-01-17] MEDS: KETOROLAC 30 MG/ML inj IVP (23:15)
[2024-01-17 23:23] LABS: NT Pro B Type NatriureticPept* 194 pg/mL
[2024-01-17 23:28] LABS: Procalcitonin* 0.21 ng/mL (<0.50)
[2024-01-17 23:42] LABS: Appearance Urine Clear (Clear); Bilirubin Urine Negative (Negative); Blood Urine Negative (Negative); Color Urine Yellow (Yellow); Glucose Urine Negative (Negative); Ketones Urine Negative (Negative); Leukocyte Esterase Urine Negative (Negative); Nitrite Urine Negative (Negative); Protein Urine Negative (Negative); Specific Gravity Urine 1.015 (1.000-1.030); Urobilinogen Urine 0.2 (0.2-1.0); pH Urine 6.5 (5.0-8.5)
[2024-01-17 23:53] LABS: RBC Urine 0-2 (0-2); Squamous Epithelial Cell Urine Few (None-Few); WBC Urine 0-2 (0-5)
[2024-01-18] VITALS (18 sets, daily range): BP systolic 105–127; BP diastolic 56–77; PULSE 78–108; RESP 17–18; TEMP 36.6–38.8; O2SAT 88–97
[2024-01-18] MEDS: LACTATED RINGERS 1000 ML 1,000 ML IV (00:02)
[2024-01-18] MEDS: MORPHINE 4 MG/ML INJ IVP (00:28)
[2024-01-18] MEDS: PIPERACILLIN/TAZOBACTAM 3.375 GM in 0.9 % SODIUM CHLORIDE Mini-bag 100 ML IVPB ×4 (00:37→23:22)
[2024-01-18] MEDS: IPRAT-ALBUT 0.5-2.5 MG/3 ML NEB 1 NEB IH (01:08)
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
[2024-01-18] MEDS: 0.9 % SODIUM CHLORIDE 1000 ml 1,000 ML 100 ML IV ×2 (03:59→13:59)
[2024-01-18] MEDS: PANTOPRAZOLE SODIUM 40 MG INJ IVP (05:06)
--- NOTE | 2024-01-18 05:42 | PC.NURSE ---
Shift note: Pt arrived at the unit at 0150 on a wheelchair accompanied by his . Conscious, alert and oriented. Pt had a muffled voice, unable to swallow, and G-tube to the right lower abdomen. O2 was between 84 and 86 0n room air. Oxygen 2L given and admission assessment and date done. Pt was reviewed by Dr. Felix Chua through [facility]. HOB elevated to high fowlers position due to risk of aspiration and to aid respiration. IV N/S set up as prescribed. SCD and incentive spirometry set up. Pt stated pain level of 1 to lower back. SBA.
[2024-01-18] MEDS: ACETAMINOPHEN 325 MG TABLET G-TUBE ×2 (08:59→21:43)
[2024-01-18] MEDS: ALBUTEROL SULFATE 2.5 MG/3 ML VIAL.NEB NEB ×2 (09:01→09:11)
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
[2024-01-18] MEDS: METOCLOPRAMIDE HCL 5 MG/ML INJ 10 MG IVP (13:17)
[2024-01-18] MEDS: TADALAFIL 5 MG 5 EACH G-TUBE (13:58)
[2024-01-18] MEDS: OXYMETAZOLINE 0.05% NASAL SPRAY 1 SPRAY NOSTRIL-B (16:09)
[2024-01-18] MEDS: METOCLOPRAMIDE 10 MG TABLET G-TUBE (17:54)
--- NOTE | 2024-01-18 20:02 | PC.NURSE ---
shift note: pt up sba/IV pole to bathroom and chair. LS this a.m dim in rt and crkls to lt posterior base. pt had dry barking cough this a.m and received prn albuterol neb. Pt c/o EDWARDS this a.m and received prn tylenol with relief. tube feeding initiated @ 1055 with rate 70cc/hr and 180cc flush q 4hrs. tube site intact/patent. BS active x4. pt had small loose stool this a.m. Pt received prn afrin this afternoon for nasal congestion. Pt Ls this afternoon bibasilar crkls and pt cough moist. pt producing moderate amount of thick yellow phlegm. Pt alerted marketing writer that his throat was getting sore. Dr. Nichols notified and prn warm salt water throat rinse ordered. Pt sats 91% throughout the day on RA. pt using home aerobika indept. IV patent.
[2024-01-18] MEDS: TRAZODONE HCL 50 MG TABLET G-TUBE (21:44)
[2024-01-19] VITALS (9 sets, daily range): BP systolic 99–141; BP diastolic 72–95; PULSE 87–103; RESP 16–20; TEMP 36.4–37.3; O2SAT 92–96; BMI 19.9
[2024-01-19] MEDS: 0.9 % SODIUM CHLORIDE 1000 ml 1,000 ML 100 ML IV (01:08)
[2024-01-19] MEDS: PIPERACILLIN/TAZOBACTAM 3.375 GM in 0.9 % SODIUM CHLORIDE Mini-bag 100 ML IVPB ×4 (04:53→22:00)
[2024-01-19] MEDS: ONDANSETRON 2 MG/ML inj 4 MG IVP (07:02)
[2024-01-19] MEDS: METOCLOPRAMIDE 10 MG TABLET G-TUBE ×3 (07:43→17:01)
[2024-01-19] MEDS: ACETAMINOPHEN 325 MG TABLET G-TUBE (07:45)
--- NOTE | 2024-01-19 07:59 | PC.NURSE ---
Patient pleasant, alert?and oriented. Denied pain. Used urinal. Feeding tube patent. When sleeping?sats drop below 89%. O2 at 1 LPM applied. Denied pain. Scheduled Tylenol given. PRN Zofran given for c/o nausea this morning. ?
[2024-01-19] MEDS: PROCHLORPERAZINE 5 MG/ML VIAL 10 MG IV ×2 (08:55→20:22)
[2024-01-19] MEDS: SODIUM CHLORIDE 0.9 % (FLUSH) 10 ML SYRINGE 5 ML IVF ×2 (08:57→21:05)
[2024-01-19] MEDS: FINASTERIDE 5 MG TABLET G-TUBE (08:59)
[2024-01-19] MEDS: TADALAFIL 5 MG 5 EACH G-TUBE (08:59)
--- NOTE | 2024-01-19 10:20 | P.IMPN_ITS ---
Progress Note: A&P Assessment and plan (1) Aspiration pneumonia: Problem details: Recurrent aspiration pneumonia with hospitalizations over the past couple months. So far the medical treatment has focused on his tube feedings as the cause of his aspiration pneumonia/pneumonitis. Management of that has been optimized. I favor aspiration of his own secretions as the primary cause of his aspiration pneumonia. He is unable to handle his own secretions, saliva, nasal secretions, pulmonary secretions. Previously had tracheostomy. Had problems with tracheostomy. Now removed. -continue Zosyn -scheduled guaifenesin per G-tube to assist with reducing cough and therefore nausea/vomiting Status: Acute (2) Hypoxia: Problem details: 01/18: Weaned to room air Status: Acute (3) Vomiting: Problem details: Per patient, following coughing spells Scheduled guaifenesin Discontinue esomeprazole. Start Protonix. Patient had a virtual consult with GI on 01/18, scheduled prior to admission, recommending this medication change. Status: Acute (4) On tube feeding diet: Problem details: Resume normal tube feeding protocol, 16 hours daily. Elevate head of bed at all times, whether feeding or not Appreciate nutrition's assistance with this Protonix Status: Acute (5) Swallowing difficulty: Problem details: Patient reports being unable to swallow anything, solid or liquid. Unable to swallow his own secretions. He does tell me that he burps a lot. This may reflect some ability to swallow air. Status: Acute (6) Fever: Problem details: Likely due to aspiration pneumonia. Discontinue antibiotics as soon as po ssible. Resolved Status: Resolved Plan Continue in hospital for management of hypoxia and fever from aspiration pneumonia. I discussed my concerns with patient and his that I thought aspiration of his secretions which he can not swallow was a more important cause of his recurrent hospitalizations for aspiration pneumonia than regurgitation of gastric contents. Clearly both problems need to be addressed. After this hospitalization I recommend ongoing evaluation with swallowing specialists to see if there is any way to improve management of his upper airway secretions. 01/18: Afebrile > 24 hours, hypoxia resolved. Continues with nausea/vomiting following coughing. Continue to monitor with plan for possible discharge tomorrow if improved. Time Spent With Patient Total time spent: Total time spent caring for the patient today was 45 minutes. This includes time spent for the visit reviewing the chart, time spent during the visit, time spent after the visit and documentation and planning in coordination of care. Subjective Date Seen: 01/19/24 Interval history: Patient reports feeling only okay this morning. Continues to cough with phlegm. Remains nauseous. Actually begins vomiting during our conversation. Tells me that the coughing an attempt to bring up the phlegm causes him to be nauseous, resulting in vomiting. No abdominal pain. Tolerating tube feedings. Has remained afebrile > 24 hours. Weaned to room air. Exam Narrative: Exam Narrative: PHYSICAL EXAM General: Pleasant, conversant, NAD HEENT: Normocephalic, atraumatic, sclera white, EOMI, oral mucosa dry Cardiovascular: RRR, S1S2. No pitting edema Pulmonary: CTA bilaterally without rhonchi, rales, expiratory wheezes. No dyspnea on room air Abdominal: Soft, nondistended, NTTP Neurological: Alert, answering questions appropriately, cranial nerves intact, no focal findings Extremities: No gross joint deformity or swelling. AROMI. Neurovascularly intact Skin: Warm, dry. Const: Vital Signs, click to edit/add: Vital Signs - 24 hr 01/18/24 15:00 01/18/24 15:00 01/18/24 15:00 Temperature 97.9 F Pulse Rate [Left P ulse Oximeter] 78 78 Respiratory Rate 18 18 18 Blood Pressure [Le ft Arm] 114/74 Blood Pressure [Ri ght Arm] Pulse Oximetry 91 91 Oxygen Delivery Me thod Room Air Room Air Oxygen Flow Rate 01/18/24 19:00 01/18/24 23:00 01/18/24 23:00 Temperature 98.6 F 98.1 F Pulse Rate [Left P ulse Oximeter] 101 H 95 Respiratory Rate 18 17 18 Blood Pressure [Le ft Arm] 122/76 115/69 Blood Pressure [Ri ght Arm] Pulse Oximetry 92 90 90 Oxygen Delivery Me thod Room Air Room Air Room Air Oxygen Flow Rate 01/19/24 02:30 01/19/24 07:36 01/19/24 07:36 Temperature 97.5 F L 99.2 F Pulse Rate [Left P ulse Oximeter] 87 103 H 103 H Respiratory Rate 16 18 18 Blood Pressure [Le ft Arm] 99/72 Blood Pressure [Ri ght Arm] 141/80 H Pulse Oximetry 94 96 Oxygen Delivery Me thod Nasal Cannula Room Air Oxygen Flow Rate 1 01/19/24 07:36 01/19/24 07:45 01/19/24 09:11 Temperature 99.2 F 98.5 F Pulse Rate [Left P ulse Oximeter] Respiratory Rate 18 Blood Pressure [Le ft Arm] Blood Pressure [Ri ght Arm] Pulse Oximetry 96 Oxygen Delivery Me thod Room Air Oxygen Flow Rate
[2024-01-19] MEDS: guaiFENesin 100 MG/ML CUP 200 MG PO ×3 (13:01→21:00)
--- NOTE | 2024-01-19 18:52 | PC.NURSE ---
End of Shift: Patient pleasant and cooperative. Patient vitally stable, lungs course, BS WNL, IV running NS at 75. Patient denies pain. Feeding through GJ tube at 107ml. Patient given prn compazine x1 for nausea, patient later denies nausea. Patient SBA to toilet. Patient urinating and has had 3 loose stools. Patient tolerating ice chips. Patient has been up in chair and now resting in bed.
[2024-01-19] MEDS: 0.9 % SODIUM CHLORIDE 1000 ml 1,000 ML 75 ML IV (19:24)
[2024-01-19] MEDS: TRAZODONE HCL 50 MG TABLET G-TUBE (21:01)
[2024-01-19] MEDS: PANTOPRAZOLE SODIUM 40 MG INJ IVP (21:05)
[2024-01-19] MEDS: ALBUTEROL SULFATE 2.5 MG/3 ML VIAL.NEB NEB (21:53)
[2024-01-20] MEDS: IBUPROFEN 600 MG TABLET G-TUBE (00:48)
[2024-01-20] MEDS: ONDANSETRON 2 MG/ML inj 4 MG IVP (00:48)
[2024-01-20] MEDS: PIPERACILLIN/TAZOBACTAM 3.375 GM in 0.9 % SODIUM CHLORIDE Mini-bag 100 ML IVPB ×2 (04:03→10:30)
[2024-01-20 04:04] VITALS: BP 124/76; PULSE 93; RESP 16; TEMP 36.7; O2SAT 93
--- NOTE | 2024-01-20 06:38 | PC.NURSE ---
End of shift [id number]: A&O pleasant and cooperative. VS w/ sats >90% on RA. Pt reports some SOB. PRN neb given with stated relief. Pt reports x2 episodes of nausea. Managed with zofran and Compazine. Reports 5/10 pack pain. PRN ibuprofen given with stated relief. Pt disconnected from feeding at 2200 and reconnected at 0600. SBA to bathroom. updated over the phone this morning. Using call light appropriately.
[2024-01-20] MEDS: METOCLOPRAMIDE 10 MG TABLET G-TUBE (06:51)
[2024-01-20 08:39] VITALS: BP 142/79; PULSE 87; RESP 18; TEMP 36.8; O2SAT 92
[2024-01-20] MEDS: FINASTERIDE 5 MG TABLET G-TUBE (08:49)
[2024-01-20] MEDS: guaiFENesin 100 MG/ML CUP 200 MG PO (08:49)
[2024-01-20] MEDS: PANTOPRAZOLE SODIUM 40 MG INJ IVP (08:50)
[2024-01-20] MEDS: TADALAFIL 5 MG 5 EACH G-TUBE (08:50)
[2024-01-20] MEDS: SODIUM CHLORIDE 0.9 % (FLUSH) 10 ML SYRINGE 5 ML IVF (08:50)
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
--- NOTE | 2024-01-20 12:32 | PC.NURSE ---
Discharge: patient was calm, cooperative and pleasant. Vital signs stable, BS WNL, lung sounds coarse. Patient IV removed, catheter intact. Patient tolerated tube feedings, and urinating well. Patient denies pain, and reports some nausea. Patient coughs up brown/yellow/pink tinged sputum. Barrier cream applied to bottom per patient request. Antibiotic given before discharge, did not fully get administered as IV infiltrated, and discharge order was in. Patient standby assist. Patient signed belongings and discharge form. Patient and spouse had no further questions regarding discharge, although seemed unhappy with patient discharging. Patient left the floor by wheelchair to home at 1215.
== END 2024-01-20 12:15 | disposition home or self-care (01) | DRG 179 ==
LOC: ED 01-18 01:21 → MEDSURG 01-18 01:47
PROVIDERS: Admitting Provider Emergency Medicine; Emergency Provider Family Medicine; PCP Family Medicine; Visit Provider Family Medicine
DX: J69.0 Pneumonitis due to inhalation of food and vomit (principal); R13.10 Dysphagia, unspecified; Z93.1 Gastrostomy status; R09.02 Hypoxemia; Z87.820 Personal history of traumatic brain injury; S19.8 Other specified injuries of neck; S12.9XXS Fracture of neck, unspecified, sequela
CPT/HCPCS: 36415; 71045; 80048; 81001; 82803; 83605; 83880; 84145; 85025; 86140; 87040; 87631; 94640; 94761; 99284; 99285; 99291; A9270; C9113; J0780; J1885; J2270; J2405; J2543; J2765; J7030; J7120

== ENCOUNTER 2024-05-04 00:55 | Inpatient (IN) | payer MEDICARE, BC, SELFPAY ==
[2024-05-04] VITALS (13 sets, daily range): BP systolic 90–120; BP diastolic 56–79; PULSE 86–137; RESP 16–30; TEMP 37.2–38.1; O2SAT 80–97; BMI 21.2; BMI 21.1
--- NOTE | 2024-05-04 01:04 | CRLHL7_ITS ---
For Patients: As a result of the Century Cures Act, medical imaging exams and procedure reports are released immediately into your electronic medical record. You may view this report before your referring provider. If you have questions, please contact your health care provider. Indication: Aspiration Technique: Single view of the chest Comparison: Chest radiograph performed 01/17/2024 Findings/Impression: New right greater than left basilar opacities, compatible with reported history of aspiration. Dictated by Sunil Warren MD @ 05/04/2024 1:54:38 AM (Electronically Signed)
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
[2024-05-04 01:27] LABS: ABG PCO2 47 mmHG (35-45); Base Excess ABG 3.4 mmol/L (-3.0-3.0); Carboxyhemoglobin* 1.5 % (0.0-5.0); HCO3 ABG 29 mmol/L (21-28); Lactate* 2.7 mmol/L (0.5-1.9); Oxygen Saturation ABG 98 % (92-100); PO2 ABG 82.6 mmHG (80-105); TCO2 ABG 26 mmol/l (21-30)
[2024-05-04 01:31] LABS: Basophils Percent Auto 0.7 % (0.0-3.0); Hemoglobin* 14.5 gm/dL (13.5-17.5); Lymphocytes Percent Auto 51.4 % (20-44); Mean Corpuscular HGB Conc 32 gm/dL (32-36); Mean Corpuscular Hemoglobin 31 pg (26-34); Mean Corpuscular Volume 97 fL (80-100); Monocytes Percent Auto 0.7 % (0.0-11.0); Neutrophils Percent Auto 47.2 % (42.0-72.0); Platelet Count* 169 K/uL (140-440); RDW Coefficient of Variation % 12.2 % (11.5-15.5); Red Blood Count 4.66 m/uL (4.30-5.90)
[2024-05-04 01:36] LABS: White Blood Count* 1.38 K/uL (4.50-11.00)
[2024-05-04] MEDS: IPRAT-ALBUT 0.5-2.5 MG/3 ML NEB 1 NEB IH (01:48)
[2024-05-04] MEDS: PIPERACILLIN/TAZOBACTAM 3.375 GM in 0.9 % SODIUM CHLORIDE Mini-bag 100 ML IVPB (01:49)
[2024-05-04] MEDS: AZITHROMYCIN 500 MG in 0.9 % SODIUM CHLORIDE 250 ml 250 ML 255 MG IVPB (01:49)
[2024-05-04] MEDS: 0.9 % SODIUM CHLORIDE 1000 ml 1,000 ML IV (01:53)
[2024-05-04 02:08] LABS: Albumin* 4.6 g/dL (3.3-5.0)
[2024-05-04 02:09] LABS: Chloride* 98 mmol/L (96-114); Sodium* 138 mmol/L (135-149)
[2024-05-04 02:11] LABS: Anion Gap 13 mEq/L (7-15); Aspartate Amino Transferase* 150 U/L (12-35); Carbon Dioxide* 27 mmol/L (20-32); Creatinine* 0.6 mg/dL (0.5-1.5); Est. Creatinine Clearance* 70.76; Estimated Glomerular Filt Rate 105 ml/min
[2024-05-04 02:12] LABS: Alanine Aminotransferase* 82 U/L (4-50); Alkaline Phosphatase* 79 U/L (40-150); Blood Urea Nitrogen* 34 mg/dL (7-30); Calcium* 9.1 mg/dL (8.4-10.6); Glucose* 84 mg/dL (60-115); Total Protein* 7.4 g/dL (6.0-8.3)
[2024-05-04] MEDS: ONDANSETRON 2 MG/ML inj 4 MG IVP ×4 (02:12→21:44)
[2024-05-04 02:29] LABS: Procalcitonin* 0.15 ng/mL (<0.50)
[2024-05-04] MEDS: ACETAMINOPHEN 650 MG SUPP PR (02:39)
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
[2024-05-04] MEDS: cefTRIAXone 1 GM in 0.9 % SODIUM CHLORIDE Mini-bag 100 ML IVPB (05:53)
[2024-05-04 06:08] LABS: Slide Review Acceptable Review (Acceptable); Slide Review Reflex Yes
--- NOTE | 2024-05-04 06:16 | PC.NURSE ---
End of shift: [id number] Alert and oriented x 4. Denies any pain. Patient currently has shortness of breath with exertion and with conversation, O2 t 1.5L per oxymask to maintain sats >90% upon admission, patient able to tolerate wean to 0.75L per NC and maintain O2 sats >90%. Inspiratory wheezes in bilateral upper lobes and expiratory rhonchi in right mid lobe. Patient has coarse, productive cough of thick, clear sputum that is tinged with blood. Denies any nausea or vomiting at this time. Patient is NPO due to vocal cord paralysis from prior injury, does utilize mouth swabs for moisturizing oral mucosa. G/J tube to right upper quadrant, tube feeding started at 0605 via home instructions per at 165/hr. supplied patient home formula of Peptide 1.5. SBA with ambulation.
[2024-05-04 06:37] LABS: Basophils Percent Auto 0.3 % (0.0-3.0); Hematocrit 37.3 % (37.0-53.0); Hemoglobin* 12.1 gm/dL (13.5-17.5); Immature Granulocytes Pct Auto 0.6 %; Lymphocytes Percent Auto 4.5 % (20-44); Mean Corpuscular HGB Conc 32 gm/dL (32-36); Mean Corpuscular Hemoglobin 31 pg (26-34); Mean Corpuscular Volume 96 fL (80-100); Monocytes Percent Auto 9.4 % (0.0-11.0); Neutrophils Percent Auto 85.2 % (42.0-72.0); Platelet Count* 122 K/uL (140-440); RDW Coefficient of Variation % 12.3 % (11.5-15.5); Red Blood Count 3.87 m/uL (4.30-5.90); White Blood Count* 3.09 K/uL (4.50-11.00)
[2024-05-04] MEDS: DOXYCYCLINE HYCLATE 100 MG in 0.9 % SODIUM CHLORIDE Mini-bag 100 ML IVPB (06:40)
[2024-05-04 06:57] LABS: Slide Review Reflex No
[2024-05-04 07:02] LABS: Chloride* 103 mmol/L (96-114); Potassium* 4.3 mmol/L (3.6-5.1); Sodium* 137 mmol/L (135-149)
[2024-05-04 07:05] LABS: Anion Gap 3 mEq/L (7-15); Blood Urea Nitrogen* 36 mg/dL (7-30); Carbon Dioxide* 31 mmol/L (20-32); Creatinine* 0.8 mg/dL (0.5-1.5); Est. Creatinine Clearance* 70.62; Estimated Glomerular Filt Rate 96 ml/min
[2024-05-04 07:06] LABS: Calcium* 8.8 mg/dL (8.4-10.6); Glucose* 111 mg/dL (60-115)
[2024-05-04 07:08] LABS: C Reactive Protein* 1.7 mg/dL (0.5-1.0)
[2024-05-04] MEDS: FINASTERIDE 5 MG TABLET G-TUBE (09:28)
[2024-05-04] MEDS: OMEPRAZOLE 20 MG CAPSULE DR FEED TUBE (09:28)
[2024-05-04] MEDS: SODIUM CHLORIDE 0.9 % (FLUSH) 10 ML SYRINGE 5 ML IVF ×4 (10:05→22:46)
[2024-05-04] MEDS: FLUTICASONE PROPIONATE NASAL 1 SPRAY NOSTRIL-B (10:26)
[2024-05-04] MEDS: PANTOPRAZOLE SODIUM 40 MG INJ IVP (11:15)
[2024-05-04] MEDS: ESCITALOPRAM 10 MG TABLET G-TUBE (11:15)
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
--- NOTE | 2024-05-04 18:36 | PC.NURSE ---
Shift Summary: Patient pleasant and cooperative. Up independently in room, needing some assistance with IV pole, calls staff when needing assistance. Vitals stable, BP soft and MD updated. Had increased nausea this evening, spitting up sputum and bile per patient report, PRN medication given and paused feeding until nausea has resolved. Denies pain. o2 0.5L/NC when sleeping, able to maintain o2 sat when ambulating. MD updated about nausea and increased cough, new orders for labs, samples obtained. x1 loose BM this evening.
[2024-05-04 18:53] LABS: PCR FLU A Negative PCR FLU A (Negative); PCR FLU B Negative PCR FLU B (Negative); PCR RSV Negative PCR RSV (Negative); SARS PCR* Negative SARS-CoV-2 (Negative)
[2024-05-04] MEDS: PROCHLORPERAZINE 25 MG SUPP PR (21:11)
[2024-05-04] MEDS: 0.9 % SODIUM CHLORIDE 500 ML 500 ML IV (22:45)
[2024-05-04 23:15] LABS: C.Difficile Negative (Negative); CDIFFEPI 027 PRESUMPTIVE NEGATIVE (Negative)
[2024-05-04] MEDS: 0.9 % SODIUM CHLORIDE 1000 ml 1,000 ML 75 ML IV (23:22)
[2024-05-05] VITALS (9 sets, daily range): BP systolic 109–126; BP diastolic 69–79; PULSE 82–88; RESP 16–24; TEMP 36.5–36.8; O2SAT 90–93
[2024-05-05] MEDS: AZITHROMYCIN 500 MG in 0.9 % SODIUM CHLORIDE 250 ml 250 ML 255 MG IVPB (02:36)
[2024-05-05] MEDS: cefTRIAXone 1 GM in 0.9 % SODIUM CHLORIDE Mini-bag 100 ML IVPB (05:51)
[2024-05-05] MEDS: ONDANSETRON 2 MG/ML inj 4 MG IVP ×2 (06:00→11:44)
--- NOTE | 2024-05-05 06:42 | PC.NURSE ---
End of shift [id number]: Pleasant and cooperative with cares. Patient continues to have nausea and vomiting, nausea managed with current regimen. Per patient request tube feeding was stopped at 1800 and was held through the rest of the feeding due to N & V. Emesis of thick, blood streaked secretions. Patient utilizing suction to clear secretions. Continues with intermittent cough, denies SOB. Loose stool x 1 this shift, specimen sent to lab and c-diff negative. Patient received 500ml bolus of NS due to tube feeding being held and continued emesis, after bolus patient was switched to maintenance rate of fluids. Denies any pain at this time. Oxygen at 1L per NC while sleeping due to MATEO risk, sats maintained >91% with oxygen.
[2024-05-05] MEDS: ESCITALOPRAM 10 MG TABLET G-TUBE (09:34)
[2024-05-05] MEDS: PANTOPRAZOLE SODIUM 40 MG INJ IVP (09:34)
[2024-05-05] MEDS: METOCLOPRAMIDE 10 MG TABLET G-TUBE ×3 (09:35→21:00)
[2024-05-05] MEDS: FINASTERIDE 5 MG TABLET G-TUBE (09:35)
[2024-05-05] MEDS: 0.9 % SODIUM CHLORIDE 1000 ml 1,000 ML 75 ML IV (09:36)
[2024-05-05] MEDS: FLUTICASONE PROPIONATE NASAL 1 SPRAY NOSTRIL-B (09:51)
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
[2024-05-05] MEDS: ACETAMINOPHEN 325 MG TABLET 650 MG FEED TUBE (16:03)
--- NOTE | 2024-05-05 18:48 | PC.NURSE ---
End of shift-- Very pleasant and cooperative, alert and oriented patient. VSS and pt is afebrile. SPO2 maintained 89-90% on RA. He denied any pain, but was uncomfortable this afternoon and was given Tylenol with stated relief. Wheezing noted in upper lobes of lungs, and crackles were noted in posterior bases. He has a frequent productive cough with brownish sputum which he suctions himself. Pt c/o nausea today and was given scheduled Reglan and Zofran with partial relief and rate of tube feeding was dropped to 142ml per patient request. This afternoon, pt began retching and appeared very uncomfortable. Tube feeding was stopped for roughly a half an hour and pt ambulated in hallway. Following break from feeding, Tylenol and walk patient appeared greatly improved. He also c/o frequent loose stools today and had at least 5. and son were at bedside today and appear loving and supportive.
[2024-05-05] MEDS: TRAZODONE HCL 50 MG TABLET G-TUBE (21:00)
[2024-05-05] MEDS: SODIUM CHLORIDE 0.9 % (FLUSH) 10 ML SYRINGE 5 ML IVF ×2 (21:01)
[2024-05-06] MEDS: 0.9 % SODIUM CHLORIDE 1000 ml 1,000 ML 75 ML IV (01:00)
[2024-05-06] MEDS: AZITHROMYCIN 500 MG in 0.9 % SODIUM CHLORIDE 250 ml 250 ML 255 MG IVPB (02:31)
[2024-05-06 03:00] VITALS: BP 124/85; PULSE 83; RESP 20; TEMP 37.1; O2SAT 92
[2024-05-06] MEDS: ONDANSETRON 2 MG/ML inj 4 MG IVP ×2 (03:05→10:36)
[2024-05-06] MEDS: ACETAMINOPHEN 325 MG TABLET 650 MG FEED TUBE ×2 (03:06→10:35)
[2024-05-06 04:29] VITALS: O2SAT 92
[2024-05-06] MEDS: cefTRIAXone 1 GM in 0.9 % SODIUM CHLORIDE Mini-bag 100 ML IVPB (06:06)
--- NOTE | 2024-05-06 06:26 | PC.NURSE ---
End of shift [id number]: Pleasant and cooperative with cares. Alert and oriented x 4. Denies any pain or shortness of breath. Nausea reported x 1 at 0300, zofran used with effective relief of nausea. Patient request for O2 while sleeping, patient on 0.5L per NC for comfort at bedtime and sats maintained >92% throughout the night. Lung sounds with crackles in right base, inspiratory and expiratory wheezing in upper lung [place].
[2024-05-06 08:20] VITALS: BP 134/85; PULSE 89; RESP 18; TEMP 36.8; O2SAT 92
[2024-05-06] MEDS: METOCLOPRAMIDE 10 MG TABLET G-TUBE (09:30)
[2024-05-06] MEDS: SODIUM CHLORIDE 0.9 % (FLUSH) 10 ML SYRINGE 5 ML IVF ×3 (09:30→10:36)
[2024-05-06] MEDS: PANTOPRAZOLE SODIUM 40 MG INJ IVP (09:30)
[2024-05-06] MEDS: ESCITALOPRAM 10 MG TABLET G-TUBE (09:30)
[2024-05-06] MEDS: FINASTERIDE 5 MG TABLET G-TUBE (09:30)
[2024-05-06] MEDS: FLUTICASONE PROPIONATE NASAL 1 SPRAY NOSTRIL-B (09:31)
[2024-05-06 10:10] VITALS: BMI 20.8
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
--- NOTE | 2024-05-06 14:01 | PC.SOCIAL ---
Discharge planning: Pt has [facility] home care through [facility]. A resumption of care order was written in the discharge orders by the physician and sent to Tiffanie at [facility] via secure email. Social work to follow-up as needed.
== END 2024-05-06 12:00 | disposition home or self-care (01) | DRG 177 ==
LOC: ED 02:12 → MEDSURG 02:49
PROVIDERS: Family Medicine; Admitting Provider Internal Medicine; Emergency Provider Internal Medicine; PCP Family Medicine; Visit Provider Internal Medicine
DX: J69.0 Pneumonitis due to inhalation of food and vomit (principal); A41.9 Sepsis, unspecified organism; J96.01 Acute respiratory failure with hypoxia; Z93.1 Gastrostomy status; R13.10 Dysphagia, unspecified; H53.2 Diplopia; R11.2 Nausea with vomiting, unspecified; Z87.820 Personal history of traumatic brain injury; J38.00 Paralysis of vocal cords and larynx, unspecified; I95.9 Hypotension, unspecified; G47.30 Sleep apnea, unspecified; Z87.81 Personal history of (healed) traumatic fracture; Z68.20 Body mass index [BMI] 20.0-20.9, adult
CPT/HCPCS: 36415; 36600; 71045; 80048; 80053; 82803; 83605; 84145; 85025; 86140; 87040; 87070; 87186; 87493; 87631; 94640; 94761; 97110; 97112; 97116; 97140; 97161; 97165; 99283; 99285; A9270; C9113; J0456; J0696; J2405; J2543; J7030; J7050

== ENCOUNTER 2024-07-25 21:35 | Emergency (ER) | payer MEDICARE, BC, SELFPAY ==
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
[2024-07-25 21:48] VITALS: BP 148/93; PULSE 93; RESP 16; TEMP 37.7; O2SAT 94; BMI 22.2
--- NOTE | 2024-07-25 22:17 | CRLHL7_ITS ---
For Patients: As a result of the Century Cures Act, medical imaging exams and procedure reports are released immediately into your electronic medical record. You may view this report before your referring provider. If you have questions, please contact your health care provider. INDICATION: Evaluate feeding tube position. COMPARISON: 12/20/2023 CT abdomen. FINDINGS/IMPRESSION: Percutaneous gastrojejunostomy feeding tube appears present over the epigastric region, with the configuration of the catheter suggesting appropriate position within the stomach, duodenum, and proximal jejunum. If desired, this could be confirmed with contrast injection through the catheter. Bowel gas pattern appears normal. Included bones are normal for age. Dictated by Gerardo Koehler MD @ 07/26/2024 12:17:54 AM Dictated by: Gerardo Koehler MD @ 07/26/2024 00:18:22 (Electronically Signed)
--- NOTE | 2024-07-25 22:18 | CRLHL7_ITS ---
For Patients: As a result of the Century Cures Act, medical imaging exams and procedure reports are released immediately into your electronic medical record. You may view this report before your referring provider. If you have questions, please contact your health care provider. Indication: CT chest pelvis dated 12/20/2019. Technique: Chest 2 views. Comparison: None. Findings/Impression: Cardiovascular and mediastinum: Heart size and vasculature are normal in caliber and appearance. Lungs and pleural spaces: Patchy right basilar opacities are nonspecific and could reflect aspiration or pneumonia. No sign of pleural effusion. No pneumothorax. Bones and soft tissues: No significant findings. Dictated by Ramone Hitchcock MD @ 07/26/2024 12:52:49 AM (Electronically Signed)
--- OUTSIDE RECORDS SUMMARY | 2024-07-25 22:39 | XMS_ITS | Encounter Summary ---
Author Organization [facility] Address [address] [place] [address] Care Team Providers Care Carpenter Maintenance Name Role Phone Jurgen Tami OD Unavailable [phone] Sandy Matta MD Primary Care Provider [phone] Tami Seaman OD Unavailable [phone] Guy Yost MD Unavailable + [phone] Encounter Details Date Type Department Care Team (Latest Contact Info) Description 07/12/2024 Travel Social History Tobacco Use Types Packs/Day Years Used Date Smoking Tobacco: Never Assessed PHQ-2 Answer Date Recorded PHQ-2 Score 0 01/09/2024 Adolescent Education Answer Date Record ed Getting School Help Needed Not on file 09/21 Sex and Gender Information Value Date Recorded Sex Assigned at Not on file Gender Identity Not on file Sexual Orientation Not on file documented as of this encounter Plan of Treatment Not on file documented as of this encounter Visit Diagnoses Not on filedocumented in this encounter Care Teams Carpenter Maintenance Relationship Specialty Start Date End Date Sandy Matta MD Paolo Alcalaerson [place] [address] PCP - General Family Medicine 09/18/23 Tami Seaman OD [address] [place] [address] [id number] Optometry 09/18/23 Tami Seaman OD [address] [place] [id number] Assigned Surgical Provider 10/14/23 Guy Yost MD [address] [place] [address] Otolaryngology 01/22/24 documented as of this encounter
--- OUTSIDE RECORDS SUMMARY | 2024-07-25 22:39 | XMS_ITS | Encounter Summary ---
Author Organization [facility] Address [address] [place] [address] Care Team Providers Care Motor Vehicle Licence Examiner Name Role Phone JurgenTami OD Unavailable [phone] Sandy Matta MD Primary Care Provider [phone] Tami Seaman OD Unavailable [phone] Guy Yost MD Unavailable + [phone] Reason for Referral * Therapeutic Services (Routine: Next available opening) - Pending Review Specialty Diagnoses / Procedures Referred By Karine velasco Referred To Contact Diagnoses Dysphagia, oropharyngeal phase [facility] [employer] Ent [address] [facility] [address]th [place] [address] Referral ID Status Reason Start Date Expiration Date V isits Requested Visits Authorized [id number] Pending Review 07/16/2024 07/16/2025 1 1 Question Answer Course of Action: Evaluation and Treatment Speech Treatment Diagnosis: Dysphagia Specialty Services: Clinical Swallow Study Scheduling Instructions: [facility] will call you to coordinate your care as prescribed by your provider. If you don't hear from a communications representative within 2 business days, please call . Additional Information: does not need to be scheduled Comments Please be aware that coverage of these services is subject to the terms and limitations of your health insurance plan. Call member services at your health plan with any benefit or coverage questions. [facility] will call you to coordinate your care as prescribed by your provider. If you don't hear from a communications representative within 2 business days, please call . Reason for Visit * Therapeutic Services (Routine: Next available opening) - Pending Review Specialty Diagnoses / Procedures Referred By Karine velasco Referred To Contact Diagnoses Dysphagia, oropharyngeal phase [facility] [employer] [employer] Manager Ent [address] [place] [address] [address] [place] [address] Referral ID Status Reason Start Date Expiration Date V isits Requested Visits Authorized [id number] Pending Review 07/16/2024 07/16/2025 1 1 Encounter Details Date Type Department Care Team (Latest Contact Info) Description 07/16/2024 3:30 PM CDT Therapy Visit [address] [address] Maryann Wilhelm Dysphagia, oropharyngeal phase (Primary Dx) Social History Tobacco Use Types Packs/Day Years Used Date Smoking Tobacco: Never Assessed PHQ-2 Answer Date Recorded PHQ-2 Score 0 01/09/2024 Adolescent Education Answer Date Record ed Getting School Help Needed Not on file 09/21 Sex and Gender Information Value Date Recorded Sex Assigned at Not on file Gender Identity Not on file Sexual Orientation Not on file documented as of this encounter Progress Notes * Maryann Wilhelm - 07/16/2024 3:30 PM CDT Pt was seen today for a brief allied health visit. Reviewed pts dysphagia history with him and his . Clinic swallow evaluation visualized under endoscopy was not performed due to patients intolerance to the scope. Noted pooling of secretions. Last VFSS was completed in March 2024 and demonstrates severe pharyngeal dysphagia. Discussed recommendations for ongoing home exercise program for pharyngeal strengthening exercises. Also provided speech therapy contact information for future reference if needed. Pt and report understanding. Maryann Wilhelm MS, CCC-TEST EVALUATOR Speech-Language Pathology [facility] Department of Otolaryngology/D&T - 4th floor Email: [email or web address] documented in this encounter Plan of Treatment Scheduled Referrals Name Type Priority Associated Diagnoses Orde r Schedule Speech Therapy Ornament Stitcher Referral Referral Routine: Next available opening Dysphagia, oropharyngeal phase Expected: 07/16/2024 (Approximate), Expires: 07/16/2025 documented as of this encounter Visit Diagnoses Diagnosis Dysphagia, oropharyngeal phase- Primary documented in this encounter Care Teams Motor Vehicle Licence Examiner Relationship Specialty Start Date End Date Sandy Matta MD [address] [place] [address] PCP - General Family Medicine 09/18/23 Tami Seaman, OD [address] [place], [place] [address] Optometry 09/18/23 Tami Seaman, OD [address] [place], [place] [address] Assigned Surgical Provider 10/14/23 Guy Yost MD [address] [place], [place] [id number] Otolaryngology 01/22/24 documented as of this encounter
--- OUTSIDE RECORDS SUMMARY | 2024-07-25 22:39 | XMS_ITS | Encounter Summary ---
Author Organization [facility] Address [address] [place] [address] Care Team Providers Care Charging Car Operator Name Role Phone Jurgen Tami OD Unavailable [phone] Sandy Matta MD Primary Care Provider [phone] Tami Seaman OD Unavailable [phone] Guy Yost MD Unavailable + [phone] Encounter Details Date Type Department Care Team (Latest Contact Info) Description 07/16/2024 Travel Social History Tobacco Use Types Packs/Day [...] on filedocumented in this encounter Care Teams Charging Car Operator Relationship Specialty Start Date End Date Sandy Matta MD Paolo Alcalaerson [place] [address] PCP - General Family Medicine 09/18/23 Tami Seaman OD [address] [place] [address] [phone] Optometry 09/18/23 Tami Seaman OD [address] [place] [phone] Assigned Surgical Provider 10/14/23 Guy Yost MD [address] [place] [address] Otolaryngology 01/22/24 documented as of this encounter
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
--- OUTSIDE RECORDS SUMMARY | 2024-07-25 22:39 | XMS_ITS | Encounter Summary ---
Author Organization [facility] Address [address] [place] [address] Care Team Providers Care Hydraulic Riveter Name Role Phone JurgenTami OD Unavailable [phone] Sandy Matta MD Primary Care Provider [phone] Tami Seaman OD Unavailable [phone] Guy Yost MD Unavailable + [phone] Reason for Visit * Reason Onset Date Comments Previsit 07/16/2024 Encounter Details Date Type Department Care Team (Late st Contact Info) Description 07/16/2024 PRE VISIT [facility] [address] [address] Elaina Cervantes MD [address] [place] [address] Previsit Social History Tobacco Use Types Packs/Day Years Used Date Smoking Tobacco: Never Assessed PHQ-2 Answer Date Recorded PHQ-2 Score 0 01/09/2024 Adolescent Education Answer Date Record ed Getting School Help Needed Not on file 09/21 Sex and Gender Information Value Date Recorded Sex Assigned at Not on file Gender Identity Not on file Sexual Orientation Not on file documented as of this encounter Miscellaneous Notes * Telephone Encounter - Paola Miller - 06/24/2024 10:49 AM CDT FUTURE VISIT INFORMATION FUTURE VISIT INFORMATION: Date: 07/16/24 Time: 3:30 PM Location: [facility] [place] - ENT REFERRAL INFORMATION: Referring provider: Sandy Matta MD Referring providers clinic: [facility] Reason for visit/diagnosis Per pt's spouse-trouble swallowing, airway restriction, in hospital weekly for pneumonia. CSC verified. Records in [facility]. Higher priority referral being sent. Please send message when received. Please call [phone] Sandy Matta-PCP for more information RECORDS REQUESTED FROM: Clinic name Comments Records Status Imaging Status [facility] 01/26/24, 01/22/24- referral Sandy Matta MD 12/29/23, 12/12/23 - OV Ari Lopes MD More in CE Images: 02/14/24- XR Video Swallow 05/13/2024 XR chest [facility] 02/27/24- pending req [facility]ACS [facility] 02/14/24- Pending req 02/27/24- Received [facility] 10/09/23- XR Chest 10/02/23- XR Chest 10/01/23- XR Chest 09/29/23- XR Chest 09/19/23- CT Head 09/19/23- CT Spine 09/05/23- XR Chest 09/01/23- XR Chest 08/30/23- XR Chest 08/29/23- XR Chest [employer] [facility] 02/14/24- Pending req Disc received 02/22/24 [facility] 03/19/2024 OV with Rafal Rankin M.D. Imagin03/22/2024 FL SWALLOW CE Req 06/24/24 PACS June 24, 2024 10:51 AM - request to [facility] to push images to [facility] June 26, 2024 10:40 AM - Images received and resolved in PACS -Paola documented in this encounter Plan of Treatment Not on file documented as of this encounter Visit Diagnoses Not on filedocumented in this encounter Care Teams Hydraulic Riveter Relationship Specialty Start Date End Date Sandy Matta MD [address] [place] [address] PCP - General Family Medicine 09/18/23 Tami Seaman OD [address] [place] [address] Optometry 09/18/23 Tami Seaman, OD [address] [place] [address] Assigned Surgical Provider 10/14/23 Guy Yost MD [address] [place] [address] Otolaryngology 01/22/24 documented as of this encounter
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
--- OUTSIDE RECORDS SUMMARY | 2024-07-25 22:39 | XMS_ITS | Encounter Summary ---
Author Organization [facility] Address [address] [place] [address] Care Team Providers Care Insurance Case Manager Name Role Phone Tami Seaman OD Unavailable [phone] Sandy Matta MD Primary Care Provider [phone] Tami Seaman OD Unavailable [phone] Guy Yost MD Unavailable [phone] Encounter Details Date Type Department Care Team (Late st Contact Info) Description 07/19/2024 [facility] Medical Advice [address] [place] [address] Jeronimo Guido, [address] [address] Social History Tobacco Use Types Packs/Day Years [...] on filedocumented in this encounter Care Teams Insurance Case Manager Relationship Specialty Start Date End Date [place] [address] [address] PCP - General Family Medicine 09/18/23 Tami Seaman OD [address] [place] [address] Optometry 09/18/23 Tami Seaman, OD [address] [place] [address] Assigned Surgical Provider 10/14/23 Guy Yost MD [address] [place] [address] Otolaryngology 01/22/24 documented as of this encounter
--- OUTSIDE RECORDS SUMMARY | 2024-07-25 22:39 | XMS_ITS | Clinical Summary ---
Author Organization [place] Address [address] [place] [address] Care Team Providers Care Bee Tender Name Role Phone JurgenTami OD Unavailable [phone] Sandy Matta MD Primary Care Provider Tami Seaman OD Unavailable [phone] Guy Yost MD Unavailable [phone] Allergies Active Allergy Reactions Criticality Noted Date Comments Sulfamethoxazole-Trim ethoprim Hives,Itching,Rash,Sw elling High 12/02/2023 whole body hives severe. pics reviewed. Tolmetin Hives 07/12/2007 PN: LW Reaction: HIVES Medications Medication Sig Dispensed Refills Start Date End Date Status NEXIUM 40 MG PACK 12/24/2023 Active finasteride (PROSCAR) 5 MG tablet Take 1 tablet by mouth daily Active melatonin 3 MG tablet 6 mg by Enteral route 10/10/2023 Active metoclopramide (REGLAN) 5 MG tablet 01/08/2024 Active sodium chloride (OCEAN) 0.65 % nasal spray [place] 1-2 sprays in nostril 12/07/2023 Active traZODone (DESYREL) 50 MG tablet 50 mg by Per G Tube route 10/10/2023 Active tadalafil (CIALIS) 5 MG tablet Take 5 mg by mouth daily Active escitalopram (LEXAPRO) 5 MG/5ML solution TAKE 10 ML ONCE DAILY IN J- TUBE.* Active dexlansoprazole (DEXILANT) 30 MG CPDR CR capsule Take 30 mg by mouth. 07/11/2024 11/08/2024 Active methylPREDNISolon e (MEDROL DOSEPAK) 4 MG tablet therapy packIndications:O ropharyngeal dysphagia,Recurre nt aspiration pneumonia (H) Take as directed per patient instruction card 21 tablet 07/16/2024 Active azithromycin (ZITHROMAX) 250 MG tabletIndications :Oropharyngeal dysphagia,Recurre nt aspiration pneumonia (H) Take 2 tablets (500 mg) by mouth daily for 1 day, THEN 1 tablet (250 mg) daily for 4 days. 6 tablet 07/16/2024 07/21/2024 Active Problems No known active problems Encounters Date Type Department Care Team Description 07/19/2024 MyC Medical Advice [facility] Voice [address] [phone] Jeronimo Guido, FLOR 07/17/2024 MyC Medical Advice [facility] Ear Nose and Throat [address] [phone] Elaina Cervantes MD 07/16/2024 3:30 PM CDT Therapy Visit [facility] Rehabilitation Services [address] [phone] Maryann Wilhelm Dysphagia, oropharyngeal phase (Primary Dx) 07/16/2024 2:45 PM CDT Office Visit [address] [phone] Sandy Matta MD Provider, 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 (Primary Dx); Inspiratory stridor; Bilateral vocal fold paralysis 07/16/2024 2:45 PM CDT Office Visit [facility] Throat [address] [phone] Sandy Matta MD Gray, Raluca, MD Dysphonia (Primary Dx); Oropharyngeal dysphagia; 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, sequela; Recurrent aspiration pneumonia (H) 07/16/2024 Travel 07/16/2024 PRE VISIT [facility] Th[facility]at [address] [phone] Elaina Cervantes MD Previsit 07/12/2024 Travel from Last 3 Months Family History Medical History Relation Comments Glaucoma No family hx of Macular Degeneration No family hx of Social History Tobacco Use Types Packs/Day Years Used Date Smoking Tobacco: Never Assessed PHQ-2 Answer Date Recorded PHQ-2 Score 0 01/09/2024 Adolescent Education Answer Date Record ed Getting School Help Needed Not on file 09/21 Sex and Gender Information Value Date Recorded Sex Assigned at Not on file Gender Identity Not on file Sexual Orientation Not on file Last Filed Vital Signs Vital Sign Reading [...] Mass Index 21.97 07/16/2024 2:45 PM CDT Plan of Treatment Health Maintenance Due Date Last Done Comments ADVANCE CARE PLANNING 1955 ANNUAL REVIEW OF HM ORDERS 1955 CT COLONOGRAPHY 1955 FIT 1955 FLEX SIG 1955 GLUCOSE 1955 sDNA (Cologuard) 1955 HEPATITIS C SCREENING 1973 LIPID 1995 FALL RISK ASSESSMENT 2020 MEDICARE ANNUAL WELLNESS VISIT 06/07/2024 06/07/2023, 01/12/2022, 10/07/2020 INFLUENZA VACCINE (#1) 2024 3, 07/22/2022, 07/22/2022, Additional history exists RSV VACCINE (1 - 1-dose 75+ series) 2030 COLONOSCOPY 06/14/2031 06/14/2021 COLORECTAL CANCER SCREENING 06/14/2031 DTAP/TDAP/TD IMMUNIZATION (4 - Td or Tdap) 08/14/2033 08/14/2023, 07/22/2022, 05/04/2012, Additional history exists ZOSTER IMMUNIZATION Completed 08/24/2018, 06/15/2018, 05/04/2012 Pneumococcal Vaccine: 65+ Years Completed 06/07/2023, 01/12/2022 PHQ-2 (once per calendar year) Completed 01/09/2024, 10/13/2023 COVID-19 Vaccine Completed 04/22/2024, , 10/24/2022, Additional history exists HPV IMMUNIZATION Aged Out No longer e ligible based on patient's age to complete this topic MENINGITIS IMMUNIZATION Aged Out No l onger eligible based on patient's age to complete this topic RSV MONOCLONAL ANTIBODY Aged Out No l onger eligible based on patient's age to complete this topic Procedures Procedure Name Priority Date/Time Associated Diagnosis Comments [place] BEHAVIORAL & QUALITATIVE ANALYSIS VOICE AND RESONANCE Routine 07/23/2024 11:47 AM CDT Dysphonia Inspiratory stridor Bilateral vocal fold paralysis [place] LARYNGOSCOPY FLEX FIBEROPTIC, DIAGNOSTIC Routine 07/16/2024 3:47 PM CDT Oropharyngeal dysphagia IMAGESTREAM RECORDING ORDER Routine 07/16/2024 3:27 PM CDT Dysphonia from Last 3 Months Results * IMAGESTREAM RECORDING ORDER (07/16/2024 3:27 PM CDT) 07/16/2024 3:27 PM CDT Elaina Cervantes MD OTHER RADIOLOGY RESULTS from Last 3 Months Care Teams Bee Tender Relationship Specialty Start Date End Date Sandy Matta MD [address] [place] [address] PCP - General Family Medicine 09/18/23 Tami Seaman, OD [address] [place] [address] Optometry 09/18/23 Tami Seaman, OD [address] [place], [place] [address] Assigned Surgical Provider 10/14/23 Guy Yost MD [address] [place] [address] Otolaryngology 01/22/24
--- OUTSIDE RECORDS SUMMARY | 2024-07-25 22:39 | XMS_ITS | Referral Summary ---
Author Organization [place] Address [address] [place] [id number] Care Team Providers Care Intelligence Manager Name Role Phone JurgenTami OD Unavailable [phone] Sandy Matta MD Primary Care Provider [phone] Tami Seaman OD Unavailable [phone] Guy Yost MD Unavailable + [phone] Encounters Date Type Department Care Team Description 07/19/2024 MyC Medical Advice [facility] Voice [address] [phone] Jeronimo Guido, FLOR 07/17/2024 MyC Medical Advice [facility] [address] [phone] Elaina Cervantes MD 07/16/2024 Travel 07/16/2024 3:30 PM CDT Therapy Visit [facility] Rehabilitation Services [address] [phone] Maryann Wilhelm Dysphagia, oropharyngeal phase (Primary Dx) 07/16/2024 PRE VISIT [facility]ose [facility] Throat [address] [phone] Elaina Cervantes MD Previsit 07/16/2024 2:45 PM CDT Office Visit [facility] Voice [address] [phone] Sandy Matta MD Provider, 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 Dysphonia (Primary Dx); Inspiratory stridor; Bilateral vocal fold paralysis 07/16/2024 2:45 PM CDT Office Visit [facility] [address] [place] [phone] Sandy Matta MD Gray, Raluca, MD Dysphonia (Primary Dx); Oropharyngeal dysphagia; 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, sequela; Recurrent aspiration pneumonia (H) 07/12/2024 Travel from Last 3 Months Allergies Active Allergy Reactions Criticality Noted Date [...] sodium chloride (OCEAN) 0.65 % nasal spray [place] 1-2 sprays in nostril 12/07/2023 Active traZODone [...] 07/21/2024 Active Problems No known active problems Social History Tobacco Use Types Packs/Day Years [...] 07/16/2024 2:45 PM CDT Plan of Treatment Not on file Procedures Procedure Name Priority Date/Time Associated Diagnosis Comments [place] BEHAVIORAL & QUALITATIVE ANALYSIS VOICE AND RESONANCE Routine 07/23/2024 11:47 AM CDT Dysphonia Inspiratory stridor Bilateral vocal fold paralysis [place] LARYNGOSCOPY FLEX FIBEROPTIC, DIAGNOSTIC Routine 07/16/2024 3:47 PM CDT Oropharyngeal dysphagia IMAGESTREAM RECORDING ORDER Routine 07/16/2024 3:27 PM CDT Dysphonia from Last 3 Months Results * IMAGESTREAM RECORDING ORDER (07/16/2024 3:27 PM CDT) 07/16/2024 3:27 PM CDT Elaina Cervantes MD OTHER RADIOLOGY RESULTS from Last 3 Months Care Teams Intelligence Manager Relationship Specialty Start Date End Date [place] [address] [address] PCP - General Family Medicine 09/18/23 Tami Seaman, OD [address] [place], [place] [id number] Optometry 09/18/23 Tami Seaman, OD [address] [place] [id number] Assigned Surgical Provider 10/14/23 Guy Yost MD [address] [place], [place] [id number] Otolaryngology 01/22/24
--- OUTSIDE RECORDS SUMMARY | 2024-07-25 22:39 | XMS_ITS | Encounter Summary ---
Author Organization [place] Address [facility] [place] [address] Care Team Providers Care Airplane Dispatch Clerk Name Role Phone JurgenTami OD Unavailable [phone] Sandy Matta MD Primary Care Provider [phone] Tami Seaman OD Unavailable [phone] Guy Yost MD Unavailable + [phone] Reason for Visit * Reason Comments Follow Up 3 month follow-up fo r bilateral CN 6 palsy. Vinh reports there have been some improvements in his double vision. Has a black cloth patch over the left eye, primarily patches this eye. No eye pain or headaches. CARLI Jeronimo 04/12/2024 10:02 AM Encounter Details Date Type Department Care Team (Late st Contact Info) Description 04/12/2024 10:00 AM CDT Office Visit [facility] [address] [facility] [address] [place] [phone] Tami Seaman, OD [address] [place] [address] 6th nerve palsy, bilateral (Primary Dx); Epiretinal membrane, left; Alternating esotropia Social History Tobacco Use Types Packs/Day Years [...] as of this encounter Progress Notes * Tami Seaman, SANTY - 04/12/2024 10:00 AM CDT HPI: Patient was last seen on 01/09/24 by me for bilateral CN palsy. At that time, he had a significant improvement from baseline. He was still unable to fuse with prism, so I recommended continued patching. Since then, he has continued to patch his left eye. Clarity of vision remains stable. Vinh reportshe has been able to move his eyes more since our last visit; double vision is slowly improving but still constant. Assessment and Plan: 1) Bilateral CN palsy A: Continued improvement from baseline Oct 2023. P: Counseled on continued improvement of motility and alignment today. Vinh is not able to fuse with prism; continue patching for relief of symptoms as needed. Patient to establish care at [facility] in May. Schedule tentative 3 month follow-up with me, pending evaluation at [facility]. Provided medical records contact. 2) Epiretinal membrane, left eye A: Baseline mac OCT at last visit, VA stable at 20/50. P: Counseled on condition. Given that visual acuity is stable, continue to monitor. Non-urgent referral to retina service. Complete documentation of historical and exam elements from today's encounter can be found in the full encounter summary report (not reduplicated in this progress note). I personally obtained the chief complaint(s) and history of present illness. I confirmed and edited as necessary the review of systems, past medical/surgical history, family history, social history, and examination findings as documented by others; and I examined the patient myself. I personally reviewed the relevant tests, images, and reports as documented above. I formulated and edited as necessary the assessment and plan and discussed the findings and management plan with the patient and family. Tami Seaman, SANTY documented in this encounter Nursing Notes * Buffy Ulrich CO - 04/12/2024 10:00 AM CDT Chief Complaint(s) and History of Present Illness(es) Follow Up In both eyes. Since onset it is stable. Associated symptoms include Negative for double vision, eyepain and headache. Pain was noted as 0/10. Additional comments: 3 month follow-up for bilateral CN 6 palsy. Vinh reports there have been some improvements in his double vision. Has a black cloth patch over the left eye, primarily patches this eye. No eye pain or headaches. CARLI Jeronimo 04/12/2024 10:02 AM documented in this encounter Plan of Treatment Not on file documented as of this encounter Procedures Procedure Name Priority Date/Time Associated Diagnosis Comments SENSORIMOTOR Routine 04/12/2024 10:29 AM CDT Alternating esotropia documented in this encounter Results * Sensorimotor (04/12/2024 10:29 AM CDT) Narrative Jurgen Tami, OD - 04/12/2024 10:29 AM CDT Performed by: mi . Patient cooperation: Reliable . Reliability of the test: Good . Test Findings: Strabismus . Interpretation: Esotropia, 6th nerve palsy . Plan: Will monitor and consider eye muscle surgery, Patch therapy . Interval: Better . Buffy BOYCE OPHTHALMOLOGY documented in this encounter Visit Diagnoses Diagnosis 6th nerve palsy, bilateral- Primary Epiretinal membrane, left Alternating esotropia documented in this encounter Care Teams Airplane Dispatch Clerk Relationship Specialty Start Date End Date Sandy Matta MD [address] [place] [address] PCP - General Family Medicine 09/18/23 Esaman Tami, OD [address] [place], [place] [address] Optometry 09/18/23 Jurgen Tami, OD [address] [place], [place] [phone] Assigned Surgical Provider 10/14/23 Guy Yost MD [address] [place] [address] Otolaryngology 01/22/24 documented as of this encounter
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
--- OUTSIDE RECORDS SUMMARY | 2024-07-25 22:39 | XMS_ITS | Encounter Summary ---
Author Organization [facility] Address [address] [place] [address] Care Team Providers Care Vp Communications Name Role Phone Tami Seaman OD Unavailable [phone] Sandy Matta MD Primary Care Provider [phone] Tami Seaman OD Unavailable [phone] Guy Yost MD Unavailable + [phone] Encounter Details Date Type Department Care Team (Late st Contact Info) Description 07/17/2024 [facility] [address] [place] [address] Elaina Cervantes MD [address] [place] [address] Social History Tobacco Use Types Packs/Day Years [...] on filedocumented in this encounter Care Teams Vp Communications Relationship Specialty Start Date End Date [place] [address] [address] PCP - General Family Medicine 09/18/23 Tami Seaman, OD [address] [place] [address] Optometry 09/18/23 Tami Seaman, OD [address] [place] [address] Assigned Surgical Provider 10/14/23 Guy Yost MD [address] [place] [address] Otolaryngology 01/22/24 documented as of this encounter
--- OUTSIDE RECORDS SUMMARY | 2024-07-25 22:40 | XMS_ITS | Clinical Summary ---
Author Organization [facility] Address [address] [facility] [place] [address] Phone Care Team Providers Care Facility Administrator Name Role Phone Sandy Matta Primary Care Provider Allergies No known active allergies Medications Medication Sig Dispensed Refills Start Date End Date Status acetaminophen (TYLENOL) 325 MG tablet 2 tablets (650 mg total) by PO/Per Tube route every 6 (six) hours as needed for mild pain or Temp > or equal to 101F (38.3C). 10/10/2023 Active finasteride (PROSCAR) 5 MG tablet 1 tablet (5 mg total) by PO/Per Tube route daily with lunch. 90 tablet 3 10/10/2023 Active lidocaine (LIDOCARE) 4 % patch patch Place 1 patch on the skin in the morning. 30 patch 2 10/11/2023 Active melatonin tablet 2 tablets (6 mg total) by PO/Per Tube route nightly. 10/10/2023 Active ondansetron ODT (ZOFRAN-ODT) 4 MG disintegrating tablet 1 tablet (4 mg total) by PO/Per Tube route every 6 (six) hours as needed for nausea or vomiting. 10 tablet 2 10/10/2023 Active oxyCODONE (ROXICODONE) 5 MG immediate release tabletIndications:Acut e Pain,Chronic Pain 1 tablet (5 mg total) by PO/Per Tube route nightly as needed for severe pain Indications: Acute Pain, Chronic Pain. Max Daily Amount: 5 mg 15 tablet 10/10/2023 Active pantoprazole-sodium bicarbonate 2mg/ml enteral liquid 20 mL (40 mg total) by PO/Per Tube route every 12 (twelve) hours. 1200 mL 2 10/10/2023 Active polyethylene glycol (MIRALAX) 17 g packet 17 g by PO/Per Tube route in the morning and 17 g before bedtime. Skip dose if having loose stools. 60 packet 11 10/10/2023 Active senna 176 MG/5ML enteral syrup 15 mL (528 mg total) by PO/Per Tube route in the morning and 15 mL (528 mg total) before bedtime. Skip dose if having loose stools. 900 mL 11 10/10/2023 Active silodosin (RAPAFLO) 4 MG capsule capsule 1 capsule (4 mg total) by PO/Per Tube route daily with lunch. 90 capsule 3 10/10/2023 Active traZODone (DESYREL) 50 MG tablet 1 tablet (50 mg total) by PO/Per Tube route nightly. 90 tablet 3 10/10/2023 Active Active Problems Problem Noted Date Diagnosed Date Acute hypoxemic respiratory failure 09/12/2023 Tracheostomy status 09/12/2023 Respiratory failure 08/29/2023 Immunizations Name Administration Dates Next Due H1N1 Inj 2009 Influenza (IM) Preservative Free 08/27/2008 Influenza Split High Dose Pr eservative Free IM 07/22/2022 Influenza TIV (IM) 08/19/2013, 3,08/27/2010,10/21,09/05/2008,09/06/2007,09/13/2006 ,09/21/2005,09/09/2003 Influenza, Quadrivalent 09/02/2021,08/04,08/15/2019,07/31 Influenza, Unspecified 08/24/2018,2016,08/22/2016,09/11,07/31/2014,08/19/2013,08/07/2013 ,08/27/2010,10/21/2009,09/05/2008,08/14,09/13/2006,09/21/2005, 3 Moderna SARS-CoV-2 Vaccination 01/24/2021,02/16/ 2021 Pfizer SARS-CoV-2 Vaccination 10/11/2021 Pneumococcal Conjugate 06/07/2023 Pneumococcal Polysaccharide 01/12/2022 TD Preservative Free 07/12/2007 Td 07/22/2022,11/13/1996 Tdap 08/14/2023,05/04/2012 Zoster 08/24/2018,06/15/2018,05/04/2012 Social History Tobacco Use Types Packs/Day Years Used Date Smoking Tobacco: Never Smokeless Tobacco: Never Tobacco Cessation:Counseling Given: Not Answered Sex and Gender Information Value Date Recorded Sex Assigned at Not on file Gender Identity Not on file Sexual Orientation Not on file Last Filed Vital Signs Vital Sign Reading Time Taken Comments Blood Pressure 134/82 10/09/2023 7:44 PM WICKER WORKER Pulse 80 10/10/2023 8:00 AM WICKER WORKER Temperature 36 ??C (96.8 ??F) 10/09/2023 7:44 PM WICKER WORKER Respiratory Rate 18 10/10/2023 8:00 AM WICKER WORKER Oxygen Saturation 98% 10/10/2023 8:00 AM WICKER WORKER Inhaled Oxygen Concentration - - Weight 87.8 kg (193 lb 9.6 oz) 10/04/2023 4:00 A M WICKER WORKER Height 180.3 cm (5' 11) 08/29/2023 2:44 PM CDT Body Mass Index 27 08/29/2023 2:44 PM CDT Plan of Treatment Health Maintenance Due Date Last Done Comments CT Colonography 1955 Colonoscopy 1955 Colorectal Cancer Screening 1955 FIT-DNA (Cologuard) 1955 FIT 1955 FOBT 1955 Sigmoidoscopy 1955 Annual Visit Topic 1956 DTaP/Tdap/Td Vaccines (1 - Tdap) 1962 Pneumococcal Vaccine: 65+ Ye ars (1 of 4 - PCV) 01/12/2023 HIB Vaccines Aged Out No longer eligi ble based on patient's age to complete this topic HPV Vaccines Aged Out No longer eligi ble based on patient's age to complete this topic Hepatitis A Vaccines Aged Out No long er eligible based on patient's age to complete this topic Hepatitis B Vaccines Aged Out No long er eligible based on patient's age to complete this topic IPV Vaccines Aged Out No longer eligi ble based on patient's age to complete this topic Meningococcal Vaccine Aged Out No gayatri luciano eligible based on patient's age to complete this topic Advance Directives * Full Resuscitation (Latest Code Status on File) Date Activated Date Inactivated Comments 08/29/2023 4:25 PM 10/10/2023 4:03 PM Question Answer Comments I have discussed this order with the patient or his/her surrogate and have received informed consent. Yes Care Teams Facility Administrator Relationship Specialty Start Date End Date Sandy Matta DO [address] [place] [address] PCP - General Family Medicine 08/30/23
--- OUTSIDE RECORDS SUMMARY | 2024-07-25 22:40 | XMS_ITS | Encounter Summary ---
Author Organization [facility] Address [address] [place] [address] Care Team Providers Care Rv Body Mechanic Name Role Phone Elsewhere, Pcp Primary Care Provider Unavailabl e Encounter Details Date Type Department Care Team (Latest Contact Info) Description 07/24/2024 Clinical Communication Division of Endocrinology in [place], [place] [address] [place] [address] Cristiane Palacio, GRUPO, C.N.P., D.N.P. [address] [place] [address] Social History Tobacco Use Types Packs/Day Years Used Date Smoking Tobacco: Former Cigarettes Q uit: 1985 Smokeless Tobacco: Never Alcohol Use Standard Drinks/Week Comments Not Currently 0 (1 standard drink = 0.6 oz pur e alcohol) [facility] Utilities Answer Date Recorded In the past 12 months has e [employer], gas, oil, or water company threatened to shut off services in your home? No 03/12/2024 Humiliation, Afraid, Rape, and Kick questionnair e Answer Date Recorded Within the last year, have y ou been afraid of your partner or ex-partner? No 02/27/2024 Within the last year, have y ou been humiliated or emotionally abused in other ways by your partner or ex-partner? No Within the last year, have y ou been kicked, hit, slapped, or otherwise physically hurt by your partner or ex-partner? No 02/27/2024 Within the last year, have y ou been raped or forced to have any kind of sexual activity by your partner or ex-partner? No 02/27/2024 Exercise Vital Sign Answer Date Recorde d On average, how many days pe r week do you engage in moderate to strenuous exercise (like a brisk walk)? 0 days 03/12/2024 On average, how many minutes do you engage in exercise at this level? 0 min 03/12/2024 Hunger Vital Sign Answer Date Recorded Within the past 12 months, y ou worried that your food would run out before you got the money to buy more. Never true 03/12/20 Within the past 12 months, t he food you bought just didn't last and you didn't have money to get more. Never true 03/12/2024 PRAPARE - Transportation Answer Date Re corded In the past 12 months, has l ack of transportation kept you from medical appointments or from getting medications? No 02/13 In the past 12 months, has l ack of transportation kept you from meetings, work, or from getting things needed for daily living? No 03/12/2024 Dental Answer Date Recorded Dental: Regular Dentist Yes 03/12/20 Employment Answer Date Recorded Employment status Retired 03/12/2024 Housing Stability Answer Date Recorded What is your living situation today? I have a [facility] place to live 03/12/2024 Sex and Gender Information Value Date Recorded Sex Assigned at Male 03/12/2024 1:38 PM CDT Gender Identity Male 03/12/2024 1:38 PM CDT Sexual Orientation Straight 03/12/2024 1: 38 PM CDT documented as of this encounter Miscellaneous Notes * Telephone Encounter - Berenice Resendiz RDN, LD - 07/24/2024 8:17 AM CDT This seems to be an acute symptom so I will have ENT/PCP respond (they contacted both). He was tolerating tube feeding just fine before his. He is scheduled to see primary care provider today to address this concern. documented in this encounter Plan of Treatment Upcoming Encounters Date Type Department Care Team (Latest Contact Info) Description 08/15/2024 8:00 AM CDT Comprehensive Visit Department of Neurology in [address] [phone] Cristiane Palacio APRN, C.N.P., D.N.P. [address] [place] [phone] Kriss Wharton, M.S., CCC-DEPARTMENT SUPERVISOR [address] [place] [phone] 08/15/2024 9:00 AM CDT Appointment Department of Radiology, [facility], in [address] [phone] Cristiane Palaico APRN, C.N.P., D.N.P. [address] [place] [phone] Kriss Wharton, M.S., CCC-DEPARTMENT SUPERVISOR [address] [place] [address] [phone] 08/15/2024 9:45 AM CDT Clinical Support Department of Neurology in [address] [phone] Cristiane Palacio APRN, C.N.P., D.N.P. [address] [place] [phone] Kriss Wharton, M.S., CCC-DEPARTMENT SUPERVISOR [address] [place] [address] [phone] 08/15/2024 1:00 PM CDT Office Visit Department of Otorhinolaryngology in [address] [place] [phone] Rafal Rankin M.D. [address] [place] [phone] 08/15/2024 2:30 PM CDT Ancillary Procedure Department of Ophthalmology in [place], [place] [address] [place] [phone] Kandace Shankar M.D. [address] [place] [phone] 08/15/2024 3:00 PM CDT Comprehensive Visit Department of Ophthalmology in [place], [place] [address] [place] [phone] Peña Carver M.D. [address] [place] [phone] 08/15/2024 4:15 PM CDT Office Visit Department of Ophthalmology in [place], [place] [address] [place] [phone] Kandace Shankar M.D. [address] [place] [phone] 08/20/2024 3:00 PM CDT Appointment Division of Gastroenterology in [place], [place] [address] [place] [phone] Cristiane Palacio, GRUPO, C.N.P., D.N.P. [address] [place] [phone] documented as of this encounter Visit Diagnoses Not on filedocumented in this encounter Care Teams Rv Body Mechanic Relationship Specialty Start Date End Date Elsewhere, Pcp PCP - General Internal Medicine 02/26/24 documented as of this encounter
--- OUTSIDE RECORDS SUMMARY | 2024-07-25 22:40 | XMS_ITS | Encounter Summary ---
Author Organization [facility] Address [address] [place] [address] Care Team Providers Care Financial Assistance Advisor Name Role Phone Elsewhere, Pcp Primary Care Provider Unavailabl e Reason for Referral * Outpatient (Routine) - Closed Specialty Diagnoses / Procedures Referred By Karine velasco Referred To Contact Diagnoses Sialorrhea Procedures US Guidance Intraoperative Rafal Rankin M.D. [address] [place] [phone] [facility] Referral ID Status Reason Start Date Expiration Date Visits Re quested Visits Authorized [id number] Closed 06/19/2024 06/19/2025 1 1 Reason for Visit * Auth/Cert (Routine) Specialty Diagnoses / Procedures Referred By Karine velasco Referred To Contact Diagnoses Sialorrhea Sialorrhea [K11.7] Procedures NE CHEMODENERV PAROTID SUBMAN INJECTION BOTOX TO SALIVARY GLANDS 100 units total (25 units into each gland), ULTRASOUND GUIDANCE; PROCEED INDICATED Rafal Rankin M.D. [address] [place] [phone] Referral ID Status Reason Start Date Expiration Date Visits Re quested Visits Authorized [id number] 1 1 Encounter Details Date Type Department Care Team (Latest Contact Info) Description 07/23/2024 10:00 AM CDT - 07/23/2024 11:18 AM CDT Hospital Encounter Department of Radiology, [facility], in [place], [place] [address] [place] [phone] Rafal Rankin M.D. [address] [place] [phone] Sialorrhea Discharge Disposition: Home or Self Care Social History Tobacco Use Types Packs/Day Years Used Date Smoking Tobacco: Former Cigarettes Q uit: 1984 Smokeless Tobacco: Never Alcohol Use Standard Drinks/Week Comments Not Currently 0 (1 standard drink = 0.6 oz pur e alcohol) [facility] Utilities Answer Date Recorded In the past 12 months has [facility] [employer], gas, oil, or water [facility] [employer] threatened to shut off services in your [...] money to buy more. Never true 03/12/20 24 Within the past 12 months, t he [...] your living situation today? I have a [facility] place to live 03/12/2024 Sex and Gender Information Value Date Recorded Sex Assigned at Male 03/12/2024 1:38 PM CDT Gender Identity Male 03/12/2024 1:38 PM CDT Sexual Orientation Straight 03/12/2024 1: 38 PM CDT documented as of this encounter Medications at Time of Discharge Medication Sig Dispensed Refills Start Date End Date escitalopram (Lexapro) 20 mg tablet Take 20 mg by mouth. 06/04/2024 esomeprazole (NexIUM) 40 mg packet Take 1 packet (40 mg total) by mouth 2 (two) times a day. 120 packet 3 05/07/2024 01/02/2025 finasteride (PROSCAR) 5 mg tablet Administer 1 tablet via gastric tube daily. 05/13/2023 fluticasone propionate (FLONASE) 50 mcg/actuation nasal spray Administer 1 spray into each nostril 2 (two) times a day. mag/aluminum/sod bicarb/alginc (GAVISCON ORAL) 20 mL by g-tube route 3 (three) times a day. Gaviscon Double Action. tadalafiL (CIALIS) 5 mg tablet Administer 5 mg via gastric tube daily. traZODone (DESYREL) 50 mg tablet 50 mg by g-tube route at bedtime. 10/10/2023 acetaminophen (TYLENOL) 325 mg tablet Administer 650 mg via gastric tube every 6 (six) hours as needed for pain or headaches. 10/10/2023 loperamide (Imodium A-D) 2 mg capsule Administer 2 mg via gastric tube 2 (two) times a day. prochlorperazine (COMPAZINE) 25 mg suppository Insert 25 mg into the rectum every 12 (twelve) hours as needed. 01/29/2024 UNABLE TO FIND 1 each daily. durable medical equipment (DME). Anival Kelley feed bag Ref# [id number]. Change bag every 24 hours. 03/27/2024 UNABLE TO FIND 1 each as needed (5 times daily for flushes as needed.). durable medical equipment (DME) 12ml enteral syringe NeoMed with ENFIT CONNECTOR. 03/19/2024 documented as of this encounter Plan of Treatment Upcoming Encounters Date Type Department Care Team (Latest Contact Info) Description 08/15/2024 8:00 AM CDT Comprehensive Visit Department of Neurology in [address] [phone] Cristiane Palacio APRN, C.N.P., D.N.P. [address] [place] [phone] Kriss Wharton M.SEdith, [facility]-OFFICE MACH[employer]ES W[employer]ER [address] [place] [phone] 08/15/2024 9:00 AM CDT Appointment Department of Radiology, [facility], in [address] [phone] Cristiane Palacio APRN, C.N.P., D.N.P. [address] [place] [phone] Kriss Wharton M.S., CCC-OFFICE MACHINES WIRER [address] [place] [phone] 08/15/2024 9:45 AM CDT Clinical Support Department of Neurology in [address] [phone] Cristiane Palacio APRN, C.N.P., D.N.P. [address] [place] [phone] Kriss Wharton M.S., CCC-OFFICE MACHINES W[employer]ER [address] [place] [phone] 08/15/2024 1:00 PM CDT Office Visit Department of Otorhinolaryngology in [place], [place] [address] [place] [phone] Rafal Rankin M.D. [address] [place] [phone] 08/15/2024 2:30 PM CDT Ancillary Procedure Department of Ophthalmology in [place], [place] [address] [place] [phone] Kandace Shankar M.D. [address] [place] [phone] 08/15/2024 3:00 PM CDT Comprehensive Visit Department of Ophthalmology in [place], [place] [address] [place] [phone] Peña Carver M.D. [address] [place] [phone] 08/15/2024 4:15 PM CDT Office Visit Department of Ophthalmology in [place], [place] [address] [place] [phone] Kandace Shankar M.D. [address] [place] [phone] 08/20/2024 3:00 PM CDT Appointment Division of Gastroenterology in [place], [place] [address] [place] [phone] Cristiane Palacio, GRUPO, C.N.P., D.N.P. [address] [place] [phone] documented as of this encounter Procedures Procedure Name Priority Date/Time Associated Diagnosis Comments US GUIDANCE INTRAOPERATIVE RAD - Routine (most inpatients and all outpatients) 07/23/2024 1:42 PM CDT Sialorrhea documented in this encounter Results * US Guidance Intraoperative (07/23/2024 1:42 PM CDT) Anatomical Region Laterality Modality Body, Ultrasound RST LOS, Ul trasound ARZ LOS, Ultrasound FLA LOS N/A Ultrasound Impressions 07/23/2024 1:45 PM CDT Using sterile technique and real-time ultrasound guidance a 25-gauge needle was inserted into each submandibular gland by Dr. Francis and 25 units of Botox was injected via the surgical team into each gland. Narrative 07/23/2024 1:45 PM CDT EXAM: US GUIDANCE INTRAOPERATIVE COMPARISON: None Procedure Note Rajendra Francis M.D. - 07/23/2024 EXAM: US GUIDANCE INTRAOPERATIVE COMPARISON: None IMPRESSION: Using sterile technique and real-time ultrasound guidance a 25-gaugeneedle was inserted into each submandibular gland by Dr. Francis and 25 unitsof Botox was injected via the surgical team into each gland. Rafal MAHER US PROCEDURES documented in this encounter Visit Diagnoses Diagnosis Sialorrhea documented in this encounter Care Teams Financial Assistance Advisor Relationship Specialty Start Date End Date Elsewhere, Pcp PCP - General Internal Medicine 02/26/24 documented as of this encounter
--- OUTSIDE RECORDS SUMMARY | 2024-07-25 22:40 | XMS_ITS | Referral Summary ---
Author Organization [facility] Address [address] [place] [address] Care Team Providers Care Container Finisher Name Role Phone Elsewhere, Pcp Primary Care Provider Unavailabl e Source Comments Patient records contain information from all sites at [facility]. For routine questions regarding patient records, call [phone] during business hours, M-F 8:00 AM - 5:00 PM Central Time. Record requests for emergency care only can be directed to [phone] at any time.[facility] Encounters Date Type Department Care Team Description 07/24/2024 Clinical Communication Division of Endocrinology in [place], [place] [address] [place] [address] Cristiane Palacio APRN, C.N.P., D.N.P. 07/23/2024 1:12 PM CDT Anesthesia Event [facility] [place] [address] [place] [phone] Tayo Bradford D.O. Higgins, Timon J, M.D. 07/23/2024 10:00 AM CDT - 07/23/2024 11:18 AM CDT Hospital Encounter Department of Radiology, [facility], in [place], [place] [address] [place] [phone] Rafal Rankin M.D. Sialorrhea Discharge Disposition: Home or Self Care 07/23/2024 1:46 PM CDT - 07/23/2024 2:44 PM CDT Surgery [facility] [place] [address] [place] [phone] Rafal Rankin M.D. INJECTION BOTOX TO SUBMANDIBULAR GLANDS 50 units total, 25 units into each gland, ULTRASOUND GUIDANCE. 07/23/2024 11:19 AM CDT - 07/23/2024 2:16 PM CDT Hospital Encounter [facility] [place] [address] [place] [phone] Rafal Rankin M.D. Discharge Disposition: Home or Self Care 07/18/2024 1:20 AM CDT Ancillary Procedure Department of Otorhinolaryngology 07/18/2024 1:00 PM CDT Office Visit Department of Otorhinolaryngology in [place], [place] [address] [place] [phone] Rafal Rankin M.D. 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 06/25/2024 9:00 AM CDT Telemedicine Department of Otorhinolaryngology in [place], [place] [address] [place] [phone] Rafal Rankin M.D. 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 Scheduling 06/18/2024 Orders Only Division of Endocrinology in [place], [place] [address] [place] [phone] Cristiane Palacio APRN, C.N.P., D.N.P. Dysphagia (Primary Dx) 06/18/2024 Orders Only Division of Endocrinology in [address] [phone] Ankit Medina, REdithNEdith Dietary Counseling And Surveillance For Enteral Nutrition (Primary Dx) 06/18/2024 Orders Only Department of Otorhinolaryngology in [address] [phone] Luz Muir R.N. Sialorrhea (Primary Dx) 06/18/2024 Clinical Communication Department of Otorhinolaryngology in [address] [phone] Rafal Rankin M.D. 06/18/2024 1:00 PM CDT Telemedicine Division of Endocrinology in [place] [address] Stan Hernandez M.D. McKay, Elisa C, APRN, C.N.P., D.N.P. Dysphagia; Stenosis Laryngeal; Pneumonitis Due To Inhalation Of Food And Vomit (HCC) 06/18/2024 10:00 AM CDT Clinical Support Division of Endocrinology in [address] [phone] Stan Hernandez M.D. Neldner, Indra K, R.NEdith Dysphagia; Stenosis Laryngeal; Pneumonitis Due To Inhalation Of Food And Vomit (HCC) 06/18/2024 9:00 AM CDT Clinical Support Department of Nutrition and Diabetes Education in [address] [phone] Stan Hernandez M.D. Johnson, Danelle A, M.S., RDN, LD Dietary Counseling And Surveillance For Enteral Nutrition (Primary Dx); Dysphagia; Stenosis Laryngeal; Pneumonitis Due To Inhalation Of Food And Vomit (HCC); Gastrojejunostomy Percutaneous Status Post 06/17/2024 Orders Only Department of Otorhinolaryngology in [place], [place] [address] [place] [phone] Rafal Rankin M.D. 05/20/2024 Orders Only Department of Ophthalmology in [place], [place] [address] [place] [phone] Kandace Shankar M.D. Diplopia (Primary Dx) 05/20/2024 8:00 AM CDT Comprehensive Visit Department of Ophthalmology in [place], [place] [address] [place] [phone] Kandace Shankar M.D. 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 Scheduling 05/07/2024 Orders Only Division of Gastroenterology in [place], [place] [address] [place] [phone] Stan Hernandez M.D. 05/03/2024 4:17 PM CDT - 05/03/2024 11:59 PM CDT Hospital Encounter Department of Laboratory Medicine and Pathology, [facility], in [place], [place] [address] [place] [phone] Stan Hernandez M.D. Dysphagia; Diarrhea; Heartburn Discharge Disposition: Home or Self Care 05/03/2024 2:10 PM CDT Comprehensive Visit Division of Gastroenterology in [place], [place] [address] [place] [phone] Rafal Rankin M.D. Mehanna Al Snih, Gad, M.D. Heartburn (Primary Dx); Dysphagia; Gastroparesis; Diarrhea 05/02/2024 9:00 AM CDT Clinical Communication Virtual Review in [place], [place] [address] [place] [address] Previsit Preparation (DEBORAH DD) from Last 3 Months Allergies Active Allergy Reactions Criticality Noted Date Comments Adhesive Tape-Silicones Blisters High 05/15/2024 New reaction as of 05/15/2024. Medium reaction. Sulfamethoxazole-Trim ethoprim Hives (Reselect Reaction),Itching,Christiano h,Swelling High 12/02/2023 whole body hives severe. pics reviewed. whole body hives severe. pics reviewed. Tolmetin Hives (Reselect Reaction) 07/12/2007 PN: LW Reaction: HIVES Medications Medication Sig Dispensed Refills Start Date End Date Status acetaminophen (TYLENOL) 325 mg tablet Administer 650 mg via gastric tube every 6 (six) hours as needed for pain or headaches. 3 Active finasteride (PROSCAR) 5 mg tablet Administer 1 tablet via gastric tube daily. 3 Active traZODone (DESYREL) 50 mg tablet 50 mg by g-tube route at bedtime. 3 Active prochlorperazine (COMPAZINE) 25 mg suppository Insert 25 mg into the rectum every 12 (twelve) hours as needed. 4 Active fluticasone propionate (FLONASE) 50 mcg/actuation nasal spray Administer 1 spray into each nostril 2 (two) times a day. Active tadalafiL (CIALIS) 5 mg tablet Administer 5 mg via gastric tube daily. Active loperamide (Imodium A-D) 2 mg capsule Administer 2 mg via gastric tube 2 (two) times a day. Active esomeprazole (NexIUM) 40 mg packet Take 1 packet (40 mg total) by mouth 2 (two) times a day. 120 packet 3 4 01/02/20 25 Active Additional Information Patient taking differently:40 mg,(No route reported), 2 times daily,Dissolve in water, administer via G-tube twice daily., Informant: Spouse/Significant Other, Reported on 05/15/2024 UNABLE TO FIND 1 each daily. durable medical equipment (DME). ProteoMediX feed bag Ref# [id number]. Change bag every 24 hours. 4 Active UNABLE TO FIND 1 each as needed (5 times daily for flushes as needed.). durable medical equipment (DME) 12ml enteral syringe NeoMed with ENFIT CONNECTOR. 4 Active mag/aluminum/sod bicarb/alginc (GAVISCON ORAL) 20 mL by g-tube route 3 (three) times a day. Gaviscon Double Action. Active escitalopram (Lexapro) 20 mg tablet Take 20 mg by mouth. 4 Active amoxicillin-pot clavulanate (Augmentin) 875-125 mg per tablet Take 1 tablet by mouth 2 (two) times a day for 5 days. 10 tablet 4 07/29/20 24 Active escitalopram (LEXAPRO) 5 mg/5 mL solution Administer 10 mg via gastric tube every morning. 4 07/18/20 24 Discontinued dexlansoprazole (Dexilant) [address] capsule Take 1 capsule (30 mg total) by mouth 2 (two) times a day. Patient has a J- tube. Provide instructions how to admin via Lucky Oystertube. 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 Resolved Problems Problem Noted Date Diagnosed Date Resolved Date Pneumonitis Due To Inhalatio n Of Food And Vomit 02/26/2024 02/28/2024 Social History Tobacco Use Types Packs/Day Years Used Date Smoking Tobacco: Former Cigarettes Q uit: 1985 Smokeless Tobacco: Never Tobacco Cessation:Counseling Given: Not Answered Alcohol Use Standard Drinks/Week Comments Not Currently 0 (1 standard drink = 0.6 oz pur e alcohol) [facility] Utilities Answer Date Recorded In the past 12 months has e [employer], gas, oil, or water creads threatened to shut off services in your [...] your living situation today? I have a [facility] place to live 03/12/2024 Sex and Gender Information Value Date Recorded Sex Assigned at Male 03/12/2024 1:38 PM CDT Gender Identity Male 03/12/2024 1:38 PM CDT Sexual Orientation Straight 03/12/2024 1: 38 PM CDT Last Filed Vital Signs Vital Sign Reading Time Taken Comments Blood Pressure 110/81 07/23/2024 1:45 PM CDT Pulse 61 07/23/2024 1:55 PM CDT Temperature 36.8 ??C (98.2 ??F) 07/23/2024 1:40 PM CD T Respiratory Rate 19 07/23/2024 1:55 PM CDT Oxygen Saturation 98% 07/23/2024 1:55 PM CDT Inhaled Oxygen Concentration - - Weight 73.6 kg (162 lb 4.1 oz) 07/23/2024 11:39 AM CDT Height 182 cm (5' 11.65) 07/23/2024 11:39 AM CD T Body Mass Index 22.22 07/23/2024 11:39 AM CDT Plan of Treatment Upcoming Encounters Date Type Department Care Team (Latest Contact Info) Description 08/15/2024 8:00 AM CDT Comprehensive Visit Department of Neurology in [place], [place] [address] [place] [phone] Cristiane Palacio APRN, C.N.P., D.N.P. [address] [place] [phone] Kriss Wharton M.S., [facility]-PRECISION LATHE OPERATOR 200 [place] [phone] 08/15/2024 9:00 AM CDT Appointment Department of Radiology, [facility], in [place], [place] [address] [place] [phone] Cristiane Palacio APRN, C.N.P., [place] [phone] Kriss Wharton M.S., [facility]-PRE[facility]ISION LATHE OPERATOR [address] [place] [phone] 08/15/2024 9:45 AM CDT Clinical Support Department of Neurology in [address] [phone] Cristiane Palacio, GRUPO, C.N.P., D.N.P. [address] [place] [phone] Kriss Wharton M.S., [facility] LATHE OPERATOR [address] [place] [phone] 08/15/2024 1:00 PM CDT Office Visit Department of Otorhinolaryngology in [address] [phone] Rafal Rankin M.D. [address] [place] [phone] 08/15/2024 2:30 PM CDT Ancillary Procedure Department of Ophthalmology in [address] [phone] Kandace Shankar M.D. [address] [place] [phone] 08/15/2024 3:00 PM CDT Comprehensive Visit Department of Ophthalmology in [address] [phone] Peña Carver M.D. [address] [place] [phone] 08/15/2024 4:15 PM CDT Office Visit Department of Ophthalmology in [address] [phone] Kandace Shankar M.D. [address] [place] [phone] 08/20/2024 3:00 PM CDT Appointment Division of Gastroenterology in [place], [place] [address] [place] [address] Cristiane Palacio, GRUPO, C.N.P., D.N.P. 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 DIFFICILE TOXIN PCR, F Routine 05/09/2024 8:50 AM CDT Dysphagia Diarrhea Heartburn BASIC METABOLIC PANEL, S/P Routine 02/28/2024 12:21 AM CDT from Last 3 Months or Most Recently Relevant to Health Maintenance Results * US Guidance Intraoperative (07/23/2024 1:42 [...] the surgical team into each gland. Rafal Rankin M.D. IMG US PROCEDURES * Otorhinolaryngology Image Exam-Otorhinolaryngology Image Exam (07/18/2024 1:20 AM CDT) Narrative IIMS - 07/18/2024 1:35 PM CDT This order has been created and auto-finalized to support the import of images acquired without order. The clinical documentation to support these images can be found on the encounter that produced images. Provider Not In System IMG NON RAD IMAGI NG PROCEDURES IIMS NA * Sensory Motor Exam (05/20/2024 8:44 AM CDT) Narrative OPHTHALMOLGY NON-IMAGING ORDERS - 05/20/2024 9:49 AM CDT I have reviewed the medical record and the sensorimotor exam documentation. The findings are consistent with my previously initiated care plan. I agree with the impression, plan, and follow up as entered by the tank wagon operator. Notes See note. Kandace Shankar M.D. OPHTH TOMOGRAPHY Performing Organization Address [facility] de Phone Number OPHTHALMOLGY NON-IMAGING ORDERS * Optical Coherence Tomography - Optic Nerve - OU - Both Eyes (05/17/2024 5:29 PM CDT) Narrative OPHTHALMOLOGY IMAGING EXAM - 05/23/2024 1:46 PM CDT OCT device used was [id number] . Right Eye Reliability was good. Average RNFL was 93.00 microns. Ganglion cell layer was 45.00 microns. Left Eye Reliability was good. Average RNFL was 91.00 microns. Ganglion cell layer was 29.00 microns. Notes [facility] See note. Kandace Shankar M.D. OPHTH TOMOGRAPHY Performing Organization Address [facility] de Phone Number OPHTHALMOLOGY IMAGING EXAM * Optical Coherence Tomography (OCT)-Ophthalmology Image Exam (05/17/2024 5:20 PM CDT) Only the most recent of2 resultswithin the time period is included. 05/17/2024 5:20 PM CDT Narrative IIMS - 05/17/2024 5:32 PM CDT This order has been created and auto-finalized to support the import of images acquired without order. The clinical documentation to support these images can be found on the encounter that produced images. Provider Not In System IMG NON RAD IMAGI NG PROCEDURES Performing Organization Address [facility] de Phone Number IIMS NA * Automated VF - Extended - OU - Both Eyes (05/17/2024 3:08 PM CDT) Narrative OPHTHALMOLOGY IMAGING EXAM - 05/23/2024 1:46 PM CDT Right Eye Automated visual field device used was Zeiss. Strategy was DOMINGA. Threshold was 24-2. Eyelid was untaped. Mean deviation was 0.28 decibels. Pattern standard deviation (PSD) was 3.08 decibels. Left Eye Automated visual field device used was Zeiss. Strategy was DOMINGA. Threshold was 24-2. Eyelid was untaped. Mean deviation was 1.35 decibels. Pattern standard deviation (PSD) was 1.63 decibels. Notes See note. Kandace Shankar M.D. OPHTH VISUAL FIEL D Performing Organization Address [facility]/ZIP Co de Phone Number OPHTHALMOLOGY IMAGING EXAM * Clostridioides (Clostridium) Difficile Toxin, Molecular Detection, PCR, Feces (05/09/2024 8:50 AM CDT) C. difficile Toxin, F Negative Negative 05/09/2024 12:00 PM CDT DTL Stool (Stool) 05/09/2024 8:5 0 AM CDT 05/09/2024 9:40 AM CDT Stan Izaguirre M.D. LAB MICROBIOLOG Y - GENERAL ORDERABLES Performing Organization Address [facility]/ZIP Co de Phone Number [facility] [address] [place] [address], [facility] DTL [facility] [address] [place] [address] * (ABNORMAL) Basic Metabolic Panel (02/28/2024 12:21 AM CDT) Potassium, S 4.6 3.6 - 5.2 mmol/L 02/28/2024 1:14 AM CDT DTL Sodium, S 141 135 - 145 mmol/L 02/28/2024 1:14 AM CDT DTL Chloride, S 105 98 - 107 mmol/L 02/28/2024 1:14 AM CDT DTL Bicarbonate, S 27 22 - 29 mmol/L 02/28/2024 1:14 AM CDT DTL Anion Gap 9 7 - 15 02/28/2024 1:14 AM CDT DTL BUN (Blood Urea Nitrogen), S 24 8 - 24 mg/dL 02/28/2024 1:14 AM CDT DTL Creatinine 0.69(L) 0.74 - 1.35 mg/dL 02/28/2024 1:14 AM CDT DTL Estimated GFR (eGFR) >90 >=60 mL/min/BSA 02/28/2024 1:14 AM CDT DTL Comment: Estimated GFR calculated using the 2020 CKD_EPI creatinine equation. Calcium, Total, S 8.5(L) 8.8 - 10.2 mg/dL 02/28/2024 1:14 AM CDT DTL Glucose, S 91 70 - 140 mg/dL 02/28/2024 1:14 AM CDT DTL Blood (Blood, Venous) 02/28/2024 12:21 AM CDT 02/28/2024 12:59 AM CDT Kiki Pham APRN C.N.P., M.S.N. LAB BLOOD ADD-ON [facility] [place] [address] [place] [address], [facility] [place] [address] [place] [address] from Last 3 Months or Most Recently Relevant to Health Maintenance Advance Directives For more information, please contact: [phone] Documents on File Type Date Recorded Patient Physician Relations Specialist Expl anation Advance Directives 02/28/2024 2:04 PM Malika Guillen HCPOA/ADVOCATE/AGENT/R EPRESENTATIVE/SURROGAT E * Full Code (Latest Code Status on File) Date Activated Date Inactivated Comments 02/27/2024 12:46 AM 02/28/2024 4:31 PM Question Answer Comments Full Code: Discussed Healthcare Agents on File Name Relationship Healthcare Agent Latasha Guillen Spouse Health Care Agent Malika Bryant Sister First Alternate Health Care Agent Care Teams Container Finisher Relationship Specialty Start Date End Date Elsewhere, Pcp PCP - General Internal Medicine 02/26/24
--- OUTSIDE RECORDS SUMMARY | 2024-07-25 22:40 | XMS_ITS | Encounter Summary ---
Author Organization [facility] Address [address] [place] [address] Care Team Providers Care Compliance Advisor Name Role Phone Elsewhere, Pcp Primary Care Provider Unavailabl e Reason for Visit * Auth/Cert (Routine) Specialty Diagnoses / Procedures Referred By Karine t Referred To Contact Diagnoses Sialorrhea Sialorrhea [K11.7] Procedures LA CHEMODENERV PAROTID SUBMAN INJECTION BOTOX TO SALIVARY GLANDS 100 units total (25 units into each gland), ULTRASOUND GUIDANCE; PROCEED INDICATED Rafal Rankin M.D. [address] [place] [address] Referral ID Status Reason Start Date Expiration Date Visits Re quested Visits Authorized [id number] 1 1 Encounter Details Date Type Department Care Team (Late st Contact Info) Description 07/23/2024 1:46 PM CDT - 07/23/2024 2:44 PM CDT Surgery RST ROMB MAIN OR [address] [place] [address] Rafal Rankin M.D. [address] [place] [phone] INJECTION BOTOX TO SUBMANDIBULAR GLANDS 50 units total, 25 units into each gland, ULTRASOUND GUIDANCE. Social History Tobacco Use Types Packs/Day Years Used Date Smoking Tobacco: Former Cigarettes Q uit: 1985 Smokeless Tobacco: Never Alcohol Use Standard Drinks/Week Comments Not Currently 0 (1 standard drink = 0.6 oz pur e alcohol) [facility] Utilities Answer Date Recorded In the past 12 months has e [employer], gas, oil, or water [email or web address] threatened to shut off services in your [...] your living situation today? I have a [facility] place to live 03/12/2024 Sex and Gender Information Value Date Recorded Sex Assigned at Male 03/12/2024 1:38 PM CDT Gender Identity Male 03/12/2024 1:38 PM CDT Sexual Orientation Straight 03/12/2024 1: 38 PM CDT documented as of this encounter Last Filed [...] Mass Index 22.22 07/23/2024 11:39 AM CDT documented in this encounter Medications at Time of Discharge [...] 1 each daily. durable medical equipment (DME). [employer] feed bag Ref# [id number]. Change bag every 24 hours. 03/27/2024 UNABLE TO FIND 1 each as needed (5 times daily for flushes as needed.). durable medical equipment (DME) 12ml enteral syringe [employer] with ENFIT CONNECTOR. 03/19/2024 documented as of this encounter OR Notes * Op Note - Rahel Samayoa M.D. - 07/23/2024 1:22 PM CDT Pre-op Diagnosis Sialorrhea Post-op Diagnosis Sialorrhea Findings 25 units of Botox injected into bilateral submandibular glands Complications None Operative Note Narrative The patient was brought into the operating room and identified by name and clinic number. The patient was placed in a beachchair position and monitored anesthesia was induced.. The patient was then prepped and draped overlying the right and left submandibular glands. At this time, our radiology colleagues used the ultrasound to identify the right submandibular gland; 25 units of botox was injected into the right submandibular gland. The left submandibular gland was injected in a similar manner.The patient tolerated the procedure well. The procedure was then terminated and the patient was turned over to the anesthesia team for recovery. Ailyn Samayoa M.D. documented in this encounter Plan of Treatment Upcoming Encounters Date Type Department Care Team (Latest Contact Info) Description 08/15/2024 8:00 AM CDT Comprehensive Visit Department of Neurology in [place], [place] [address] [place] [address] Cristiane Palacio, GRUPO, C.N.P., D.N.P. [address] [place] [address] Kriss Wharton M.S., [facility] [address] [place] [phone] 08/15/2024 9:00 AM CDT Appointment Department of Radiology, [facility], in [place], [place] [address] [place] [phone] Cristiane Palacio, GRUPO, C.N.P., D.N.P. [address] [place] [phone] Kriss Wharton M.S., [facility] [address] [place] [phone] 08/15/2024 9:45 AM CDT Clinical Support Department of Neurology in [place], [place] [address] [place] [phone] Cristiane Palacio APRN, C.N.P., D.N.P. [address] [place] [phone] Kriss Wharton M.S., [facility] [address] [place] [phone] 08/15/2024 1:00 PM CDT Office Visit Department of Otorhinolaryngology in [place], [place] [address] [place] [phone] Rafal Rankin M.D. [address] [place] [phone] 08/15/2024 2:30 PM CDT Ancillary Procedure Department of Ophthalmology in [place], [place] [address] [place] [phone] Kandace Shankar M.D. [address] [place] [phone] 08/15/2024 3:00 PM CDT Comprehensive Visit Department of Ophthalmology in [place], [place] [address] [place] [phone] Peña Carver M.D. [address] [place] [phone] 08/15/2024 4:15 PM CDT Office Visit Department of Ophthalmology in [place], [place] [address] [place] [phone] Kandace Shankar M.D. [address] [place] [phone] 08/20/2024 3:00 PM CDT Appointment Division of Gastroenterology in [place], [place] [address] [place] [phone] Cristiane Palacio, GRUPO, C.N.P., D.N.P. [address] [place] [phone] documented as of this encounter Procedures Procedure Name Priority Date/Time Associated Diagnosis Comments INJECTION BOTOX 07/23/2024 12:56 PM CDT Sialorrhea Case Notes FACILITY MECHANIC at 11:23 documented in this encounter Visit Diagnoses Diagnosis Sialorrhea- Primary Sialorrhea documented in this encounter Admitting Diagnoses Diagnosis Sialorrhea documented in this encounter Administered Medications Inactive Administered Medications - up to 3 most recent administrations Medication Order MAR Action Action Date Dose Rate Site metoprolol tablet 12.5 mg (Lopressor) 12.5 mg, oral, Once as needed, if patient did not take their last scheduled dose of beta taco prior to arrival, Starting on Mon07/23/24 at 1243, For 1 dose, Pre-Op, Do not give if patient does not take scheduled beta blockers, if patient is receiving intravenous vasopressors or inotropes, if heart rate is less than 50 beats per minute, if systolic blood pressure is less than 90 mmHg or if diastolic blood pressure is less than 40 mmHg, or if patient has an allergy to metoprolol. onabotulinumtoxinA injection (Botox Cosmetic) As needed, Starting on Mon07/23/24 at 1325, Intra-Op Given 07/23/2024 1:32 PM CDT 25 Units Given 07/23/2024 1:25 PM CDT 25 Units sodium chloride 0.9 % injection 10 mL 10 mL, intravenous, As needed, line care, Starting on Mon07/23/24 at 1243, Pre- Op, Peripheral Intravenous Catheter and Rapid Infusion Catheter, prior to blood sampling, post blood transfusion or post blood sampling sodium chloride 0.9 % injection 3 mL 3 mL, intravenous, As needed, line care, Starting on Mon07/23/24 at 1243, Pre- Op, Prior to and following infusion and between multiple consecutive infusions: sodium chloride 0.9 % injection sodium chloride 0.9 % injection 3 mL 3 mL, intravenous, Every 12 hours scheduled, First dose on Mon07/23/24 at 2100, Pre-Op, Peripheral Intravenous Catheter and Rapid Infusion Catheter, when no infusion to maintain patency documented in this encounter Active and Recently Administered Medications Times are shown in CDT. Scheduled Medication Order 07/21/2024 07/22/2024 07/23/2024 acetaminophen tablet 1,000 mg (TylenoL) 1,000 mg, gastric tube, Every 6 hours, First dose on Mon07/23/24 at 1430 sodium chloride 0.9 % injection 3 mL 3 mL, intravenous, Every 12 hours scheduled, First dose on Mon07/23/24 at 2100, Pre-Op, Peripheral Intravenous Catheter and Rapid Infusion Catheter, when no infusion to maintain patency Continuous Medication Order 07/21/2024 07/22/2024 07/23/2024 Lactated Ringer's 20 mL/hr, intravenous, Continuous, Starting on Mon07/23/24 at 1400, PACU & Post-Op 1400 (Due) PRN Medication Order 07/21/2024 07/22/2024 07/23/2024 dexAMETHasone injection 4 mg (Decadron) 4 mg, intravenous, Once as needed, nausea, vomiting, Starting on Mon07/23/24 at 1404, For 1 dose, Give only if NOT given during the pre or intraoperative period. If ondansetron ordered, give dexamethasone with first dose of ondansetron. granisetron (PF) injection 1 mg (KytriL) 1 mg, intravenous, Once as needed, nausea, vomiting, Starting on Mon07/23/24 at 1404, For 1 dose, PACU (only), If patient does not respond to ondansetron or haloperidol. (Order of antiemetic administration - ondansetron then haloperidol or droperidol then granisetron) haloperidol lactate injection 1 mg (HaldoL) 1 mg, intravenous, Every 6 hours PRN, nausea, vomiting, Starting on Mon07/23/24 at 1404, For 48 hours, Total of 3 doses in 24 hour period. RASS must be -2 or higher to administer. Reassess for nausea or vomiting after at least 10 minutes. If nausea or vomiting persists administer next ordered antiemetic medications (order for antiemetic medication administration ondansetron then haloperidol then prochlorperazine) metoprolol tablet 12.5 mg (Lopressor) 12.5 mg, oral, Once as needed, if patient did not take their last scheduled dose of beta taco prior to arrival, Starting on Mon07/23/24 at 1243, For 1 dose, Pre-Op, Do not give if patient does not take scheduled beta blockers, if patient is receiving intravenous vasopressors or inotropes, if heart rate is less than 50 beats per minute, if systolic blood pressure is less than 90 mmHg or if diastolic blood pressure is less than 40 mmHg, or if patient has an allergy to metoprolol. naloxone injection 0.2 mg (Narcan) 0.2 mg, intravenous, Once as needed, respiratory depression, Starting on Mon07/23/24 at 1404, For 1 dose, For RASS Score -4 or less, respiratory rate of less than 8 breaths/min. Notify provider/service and rapid response team (if available at institution). onabotulinumtoxinA injection (Botox Cosmetic) (CANCELED) As needed, Starting on Mon07/23/24 at 1325, Intra-Op 1325 (Given - Provid er: Rahel Samayoa M.D. - Comment: right submandibular gland)1332 (Given - Provider: Rahel Samayoa M.D. - Comment: left submandibular gland) ondansetron (PF) injection 4 mg (Zofran) 4 mg, intravenous, Every 6 hours PRN, nausea, vomiting, Starting on Mon07/23/24 at 1404, For 48 hours, Reassess for nausea or vomiting after at least 10 minutes. If nausea or vomiting persists administer next ordered antiemetic medications (order for antiemetic medication administration ondansetron then haloperidol then prochlorperazine). prochlorperazine injection 5 mg (Compazine) 5 mg, intravenous, Every 6 hours PRN, nausea, vomiting, Starting on Mon07/23/24 at 1404, For 48 hours, RASS must be -2 or higher to administer. Reassess for nausea/vomiting after at least 10 minutes. If nausea or vomiting persists administer next ordered antiemetic medications (order for antiemetic medication administration ondansetron then haloperidol then prochlorperazine) sodium chloride 0.9 % injection 10 mL 10 mL, intravenous, As needed, line care, Starting on Mon07/23/24 at 1243, Pre-Op, Peripheral Intravenous Catheter and Rapid Infusion Catheter, prior to blood sampling, post blood transfusion or post blood sampling sodium chloride 0.9 % injection 3 mL 3 mL, intravenous, As needed, line care, Starting on Mon07/23/24 at 1243, Pre-Op, Prior to and following infusion and between multiple consecutive infusions: sodium chloride 0.9 % injection documented in this encounter Care Teams Compliance Advisor Relationship Specialty Start Date End Date Elsewhere, Pcp PCP - General Internal Medicine 02/26/24 documented as of this encounter
--- OUTSIDE RECORDS SUMMARY | 2024-07-25 22:40 | XMS_ITS | Encounter Summary ---
Author Organization [facility] Address [address] [place] [id number] Care Team Providers Care Rubber Off Name Role Phone Elsewhere, Pcp Primary Care Provider Unavailabl e Reason for Visit * Auth/Cert (Routine) Specialty Diagnoses / Procedures Referred By Contwaldemar t Referred To Contact Diagnoses Sialorrhea Sialorrhea [K11.7] Procedures ID CHEMODENERV PAROTID SUBMAN INJECTION BOTOX TO SALIVARY GLANDS 100 units total (25 units into each gland), ULTRASOUND GUIDANCE; PROCEED INDICATED Rafal Rankin M.D. [address] [place] [phone] Referral ID Status Reason Start Date Expiration Date Visits Re quested Visits Authorized [id number] 1 1 Encounter Details Date Type Department Care Team (Late st Contact Info) Description 07/23/2024 1:12 PM CDT Anesthesia Event RST ROMB MAIN OR [address] [place] [phone] Tayo Bradford D.O. [address] [place] [phone] Alan Mchugh M.D. [address] [place] [phone] Anesthesia Record Procedure Summary Procedure Name Responsible Anesthesiologist Anesthesia Start Time Anesthesia Stop Time INJECTION BOTOX TO SUBMANDIBULAR GLANDS 50 units total, 25 units into each gland, ULTRASOUND GUIDANCE. (Bilateral) Tayo Bradford D.O. 07/23/24 1312 07/23/24 1343 Events Date Time Event Comment 07/23/2024 1246 1312 An Start Machine/Equipme nt Checked Infection Precautions Followed Procedure/Site Verified NPO Status Verified Supine Standard ASA Monitors Applied 1317 Turnover to Proceduralist 1322 Proc Start 1332 Proc Fin 1334 Turnover to ANE Staff 1336 an stop data 1343 An End I completed my handoff to the receiving staff during which we 1. Identified the patient 2. Identified the responsible provider 3. Reviewed the pertinent medical history 4. Discussed the surgical course 5. Reviewed intra-op anesthesia management and issues during anesthesia 6. Set expectations for post-procedure period 7. Allowed opportunity for questions and acknowledgement of understanding. Meds Name Total lidocaine 2% (mg) injection 60 mg ondansetron 4 mg/2 mL injection 4 mg propofol 10 mg/mL infusion 83.17 mg dexAMETHasone (Decadron) injection 4 mg/ mL 4 mg Lactated Ringers Free Drip 300 mL * Agents No agents on file. * Blood No blood administrations on file. Lines, Drains, and Airways Type Details Placement Removal NG/OG Tube 05/15/24 (Patient re ported replacement done locally); Gastrostomy-jejunostomy; No; Balloon; 18 Fr; 4 cm (skin disk); Left, Lower, Quadrant (abdomen); Small bore (ENFit??) 05/15/24 0000 by Ankit Medina REdithNEdith Peripheral IV Placement Date: 07/14 ; Placement Time: 1259; Catheter Size: 20 G; Orientation: Distal, Left, Lower, Posterior; Location: Forearm; Site Prep: Chlorhexidine (Preferred); Technique: (2); Inserted by: basilio; Insertion Attempts: 1; Removal Date: 07/23/24; Removal Time: 1403; Removal Reason: Completion of therapy 07/23/24 1259 by Ever Cornell 07/23/24 1403 by Ami Randall REdithNEdith documented in this encounter Social History Tobacco Use Types Packs/Day Years Used Date Smoking Tobacco: Former Cigarettes Q uit: 1985 Smokeless Tobacco: Never Alcohol Use Standard Drinks/Week Comments Not Currently 0 (1 standard drink = 0.6 oz pur e alcohol) [facility] Utilities Answer Date Recorded In the past 12 months has e [employer], gas, oil, or water [employer] threatened to shut off services in your [...] living situation today? I have a [facility] place to live 03/12/2024 Sex and Gender Information Value Date Recorded Sex Assigned at Male 03/12/2024 1:38 PM CDT Gender Identity Male 03/12/2024 1:38 PM CDT Sexual Orientation Straight 03/12/2024 1: 38 PM CDT documented as of this encounter OR Notes * Anesthesia Postprocedure Evaluation - Tao Laureano M.D. - 07/23/2024 1:47 PM CDT Patient: Vinh Guillen Procedure Summary Date: 07/23/24 Room / Location: [place] [address] / [facility] in [place], [place] Anesthesia Start: 1312 Anesthesia Stop: 1343 Procedure: INJECTION BOTOX TO SUBMANDIBULAR GLANDS 50 units total, 25 units into each gland, ULTRASOUND GUIDANCE. (Bilateral) Diagnosis: Sialorrhea (Sialorrhea [K11.7].) Providers: Rafal Rankin M.D. Responsible Provider: Tayo Bradford D.O. Anesthesia Type: MAC ASA Status: 3 Anesthesia Type: MAC Last vitals Vitals Value Taken Time BP 110/81 07/23/24 1345 Temp 36.8 ??C 07/23/24 1340 Pulse 65 07/23/24 1347 Resp 21 07/23/24 1347 SpO2 94 % 07/23/24 1347 Vitals shown include unfiled device data. Please reference Vitals flowsheet for most recent vital signs. Anesthesia Post Evaluation Patient Disposition: dismissal Cardiovascular status: hemodynamics (HR & BP) acceptable Respiratory status: patent airway with spontaneous effort Temperature: normothermic Oxygen requirements: room air Level of consciousness: awake Pain score: pain adequately controlled and/or at baseline Post Op nausea/vomiting: none Hydration status: euvolemic Notable Events No notable events documented. * Anesthesia Preprocedure Evaluation - Tayo Bradford D.O. - 07/23/2024 12:46 PM CDT Preprocedure Anesthesia & H&P Assessment Procedure Summary Date/Time: 07/23/24 1346 Procedure: INJECTION BOTOX TO SUBMANDIBULAR GLANDS 50 units total, 25 units into each gland, ULTRASOUND GUIDANCE, PROCEED INDICATED. (Bilateral) Diagnosis: Sialorrhea [K11.7] Pre-op diagnosis: Sialorrhea [K11.7]. Location: [address] 01 [facility] in [place], [place] Providers: Rafal Rankin M.D. Pertinent components of the patient's history including current problem list, medical history, surgical history, family history, social history, medications and allergies were reviewed. Present illness and pre-op diagnosis were confirmed. The planned surgery / procedure was verified with the patient / legal guardian. 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 Loss Of Consciousness Sequela (HCC) Digestive (+) Sialorrhea Musculoskeletal (+) Spondylitis Ankylosing (HCC) OBJECTIVE PHYSICAL EXAMINATION Airway (HEENT) Mallampati: II Mouth Opening: >3 cm Cardiovascular Cardiovascular Assessment: cardiovascular normal Functional Capacity: >4 METS Pulmonary Pulmonary Assessment: Non labored General / Constitutional General State of Health:: calm and healthy appearing ASSESSMENT / PLAN ANESTHESIA PLAN ASA: 3 Anesthesia Plan: MAC Patient seen and allergies reviewed; anesthesia plan and risks discussed directly with patient / legal guardian, or through an electrical maintenance supervisor; patient evaluated and approved for anesthesia / sedation The use of blood products not discussed Approval to Proceed: approved for anesthesia documented in this encounter Plan of Treatment Upcoming Encounters Date Type Department Care Team (Latest Contact Info) Description 08/15/2024 8:00 AM CDT Comprehensive Visit Department of Neurology in [place], [place] [address] [place] [phone] Cristiane Palacio, GRUPO, C.N.P., D.N.P. [address] [place] [phone] Kriss Wharton M.S., CCC-WHEELAGE CLERK [address] [place] [phone] 08/15/2024 9:00 AM CDT Appointment Department of Radiology, [facility], in [place], [place] [address] [place] [phone] Cristiane Palacio APRN, C.N.P., D.N.P. [address] [place] [phone] Kriss Wharton M.S., CCC-WHEELAGE CLERK [address] [place] [phone] 08/15/2024 9:45 AM CDT Clinical Support Department of Neurology in [place], [place] [address] [place] [phone] Cristiane Palacio APRN, C.N.PEdith, D.N.P. [address] [place] [phone] Kriss Wharton M.S., CCC-WHEELAGE CLERK [address] [place] [phone] 08/15/2024 1:00 PM CDT Office Visit Department of Otorhinolaryngology in [place], [place] [address] [place] [phone] Rafal Rankin M.D. [address] [place] [phone] 08/15/2024 2:30 PM CDT Ancillary Procedure Department of Ophthalmology in [place], [place] [address] [place] [phone] Kandace Shankar M.D. [address] [place] [phone] 08/15/2024 3:00 PM CDT Comprehensive Visit Department of Ophthalmology in [place], [place] [address] [place] [phone] Peña Carver M.D. [address] [place] [phone] 08/15/2024 4:15 PM CDT Office Visit Department of Ophthalmology in [place], [place] [address] [place] [phone] Kandace Shankar M.D. [address] [place] [phone] 08/20/2024 3:00 PM CDT Appointment Division of Gastroenterology in [place], [place] [address] [place] [phone] Cristiane Palacio APRN, C.N.P., D.N.P. [address] [place] [phone] documented as of this encounter Visit Diagnoses Not on filedocumented in this encounter Administered Medications Inactive Administered Medications - up to 3 most recent administrations Medication Order MAR Action Action Date Dose Rate Site dexAMETHasone injection (Decadron) intravenous, As needed, Starting on Mon07/23/24 at 1319, Anesthesia Intra-op Given 07/23/2024 1:19 PM CDT 4 mg Lactated Ringer's intravenous, Continuous Infusion: Per Instructions PRN, Starting on Mon07/23/24 at 1312, Anesthesia Intra-op New Bag 07/23/2024 1:12 PM CDT lidocaine (PF) (cardiac) injection intravenous, As needed, Starting on Mon07/23/24 at 1319, Anesthesia Intra-op Given 07/23/2024 1:19 PM CDT 60 mg ondansetron (PF) injection (Zofran) intravenous, As needed, Starting on Mon07/23/24 at 1319, Anesthesia Intra-op Given 07/23/2024 1:19 PM CDT 4 mg propofol 10 mg/mL infusion (Diprivan) intravenous, Continuous Infusion: Per Instructions PRN, Starting on Mon07/23/24 at 1316, Anesthesia Intra-op Rate/Dose Change 07/23/2024 1:32 PM CDT 25 mcg/kg/min 11.04 mL/hr Rate/Dose Change 07/23/2024 1:30 PM CDT 50 mcg/kg/min 22.0 8 mL/hr Rate/Dose Change 07/23/2024 1:27 PM CDT 70 mcg/kg/min 30.9 12 mL/hr documented in this encounter Care Teams Rubber Off Relationship Specialty Start Date End Date Elsewhere, Pcp PCP - General Internal Medicine 02/26/24 documented as of this encounter
--- OUTSIDE RECORDS SUMMARY | 2024-07-25 22:40 | XMS_ITS | Encounter Summary ---
Author Organization [facility] Address [address] [place] [address] Care Team Providers Care Drainage Engineer Name Role Phone Elsewhere, Pcp Primary Care Provider Unavailabl e Reason for Visit * Auth/Cert (Routine) Specialty Diagnoses / Procedures Referred By Contwaldemar t Referred To Contact Diagnoses Sialorrhea Sialorrhea [K11.7] Procedures NM CHEMODENERV PAROTID SUBMAN INJECTION BOTOX TO SALIVARY GLANDS 100 units total (25 units into each gland), ULTRASOUND GUIDANCE; PROCEED INDICATED Rafal Rankin M.D. [address] [place] [address] Referral ID Status Reason Start Date Expiration Date Visits Re quested Visits Authorized [id number] 1 1 Encounter Details Date Type Department Care Team (Latest Contact Info) Description 07/23/2024 11:19 AM CDT - 07/23/2024 2:16 PM CDT Hospital Encounter [facility] MAIN OR [address] [place] [address] Rafal Rankin M.D. [address] [place] [phone] Discharge Disposition: Home or Self Care Social History Tobacco Use Types Packs/Day Years Used Date Smoking Tobacco: Former Cigarettes Q uit: 1985 Smokeless Tobacco: Never Alcohol Use Standard Drinks/Week Comments Not Currently 0 (1 standard drink = 0.6 oz pur e alcohol) [facility] Utilities Answer Date Recorded In the past 12 months has th e electric, gas, oil, or water company threatened to [...] equipment (DME). Anival Kelley feed bag Ref# [id number]. Change bag every 24 hours. 03/27/2024 UNABLE [...] CDT Comprehensive Visit Department of Neurology in [place], [place] [address] [place] [address] Cristiane Palacio APRN, C.N.P., D.N.P. [address] [place] [address] Kriss Wharton M.S., [facility] [address] [place] [phone] 08/15/2024 9:00 AM CDT Appointment Department of Radiology, [facility], in [place], [place] [address] [place] [phone] Cristiane Palacio APRN, C.N.P., D.N.P. [address] [place] [phone] Kriss Wharton M.S., [facility] [address] [place] [phone] 08/15/2024 9:45 AM CDT Clinical Support Department of Neurology in [address] [phone] Cristiane Palacio APRN, C.N.P., D.N.P. [address] [place] [phone] Kriss Wharton M.S., [facility] [address] [place] [phone] 08/15/2024 1:00 PM CDT Office Visit Department of Otorhinolaryngology in [address] [phone] Rafal Rankin M.D. [address] [place] [phone] 08/15/2024 2:30 PM CDT Ancillary Procedure Department of Ophthalmology in [place], [place] [address] [place] [phone] Kandace Shankar M.D. [address] [place] [phone] 08/15/2024 3:00 PM CDT Comprehensive Visit Department of Ophthalmology in [place], [place] [address] [place] [address] Peña Carver M.D. [address] [place] [phone] 08/15/2024 4:15 PM CDT Office Visit Department of Ophthalmology in [place], [place] [address] [place] [phone] Kandace Shankar M.D. [address] [place] [phone] 08/20/2024 3:00 PM CDT Appointment Division of Gastroenterology in [place], [place] [address] [place] [phone] Cristiane Palacio, GRUPO, C.N.P., D.N.P. [address] [place] [phone] documented as of this encounter Procedures Procedure Name Priority Date/Time Associated Diagnosis Comments INJECTION BOTOX 07/23/2024 12:56 PM CDT Sialorrhea Case Notes HOOP MAKER at 11:23 documented in this encounter Visit Diagnoses Diagnosis Sialorrhea- Primary documented in this encounter Admitting Diagnoses Diagnosis [...] if patient has an allergy to metoprolol. sodium chloride 0.9 % injection 10 mL [...] injection documented in this encounter Care Teams Drainage Engineer Relationship Specialty Start Date End Date Elsewhere, Pcp PCP - General Internal Medicine 02/26/24 documented as of this encounter
--- OUTSIDE RECORDS SUMMARY | 2024-07-25 22:40 | XMS_ITS | Clinical Summary ---
Author Organization [facility] Address [address] [place] [address] Care Team Providers Care Peoplesoft Business Analyst Name Role Phone Elsewhere, Pcp Primary Care Provider Unavailabl e Source Comments Patient records contain information from all sites at [facility]. For routine questions regarding patient records, call [phone] during business hours, M-F 8:00 AM - 5:00 PM Central Time. Record requests for emergency care only can be directed to [phone] at any time.[facility] Allergies Active Allergy Reactions Criticality Noted Date [...] 1 each daily. durable medical equipment (DME). [employer] feed bag Ref# [id number]. Change bag every 24 hours. 4 Active [...] tube. Provide instructions how to admin via Jtube. 180 capsule 1 4 07/18/20 24 Discontinued [...] n Of Food And Vomit 02/26/2024 02/28/2024 Encounters Date Type Department Care Team Description 07/24/2024 Clinical Communication Division of Endocrinology in [place], [place] [address] [place] [phone] Cristiane Palacio, GRUPO, C.N.P., D.N.P. 07/23/2024 1:46 PM CDT - 07/23/2024 2:44 PM CDT Surgery [facility] MAIN OR [address] [place] [phone] Rafal Rankin M.D. INJECTION BOTOX TO SUBMANDIBULAR GLANDS 50 units total, 25 units into each gland, ULTRASOUND GUIDANCE. 07/23/2024 1:12 PM CDT Anesthesia Event [facility] MAIN OR [address] [place] [phone] Tayo Bradford D.O. Higgins, Timon J, M.D. 07/23/2024 11:19 AM CDT - 07/23/2024 2:16 PM CDT Hospital Encounter [facility] MAIN OR [address] [place] [phone] Rafal Rankin M.D. Discharge Disposition: Home or Self Care 07/23/2024 10:00 AM CDT - 07/23/2024 11:18 AM CDT Hospital Encounter Department of Radiology, [facility], in [place], [place] [address] [place] [phone] Rafal Rankin M.D. Sialorrhea Discharge Disposition: Home or Self Care 07/18/2024 1:00 PM CDT Office Visit Department of Otorhinolaryngology in [place], [place] [address] [place] [address] Rafal Rankin M.D. 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 06/25/2024 9:00 AM CDT Telemedicine Department of Otorhinolaryngology in [place], [place] [address] [place] [address] Rafal Rankin M.D. 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 McKay, Elisa C, APRN, C.N.P., D.N.P. Dysphagia; Stenosis Laryngeal; Pneumonitis Due To Inhalation Of Food And Vomit (HCC) 06/18/2024 10:00 AM CDT Clinical Support Division of Endocrinology in [place], [place] [address] [place] [address] Stan Hernandez M.D. Neldner, Indra K, R.N. Dysphagia; Stenosis Laryngeal; Pneumonitis Due To Inhalation Of Food And Vomit ([facility]) 06/18/2024 9:00 AM CDT Clinical Support Department of Nutrition and Diabetes Education in [place], [place] [address] [place] [address] Stan Hernandez M.D. Johnson, Danelle A, M.S., RDN, LD Dietary Counseling And Surveillance For Enteral Nutrition (Primary Dx); Dysphagia; Stenosis Laryngeal; Pneumonitis Due To Inhalation Of Food And Vomit (HCC); Gastrojejunostomy Percutaneous Status Post 06/18/2024 Documentation Division of Endocrinology in [place], [place] [address] [place] [phone] Imelda Escamilla R.N. Scheduling 06/18/2024 Orders Only Division of Endocrinology in [place], [place] [address] [place] [phone] Cristiane Palacio APRN, C.N.P., D.N.P. Dysphagia (Primary Dx) 06/18/2024 Orders Only Division of Endocrinology in [place], [place] [address] [place] [phone] Ankit Medina, RTomasa Dietary Counseling And Surveillance For Enteral Nutrition (Primary Dx) 06/18/2024 Orders Only Department of Otorhinolaryngology in [place], [place] [address] [place] [phone] Luz Muir RTomasa Sialorrhea (Primary Dx) 06/18/2024 Clinical Communication Department of Otorhinolaryngology in [place], [place] [address] [place] [phone] Rafal Rankin M.D. 06/17/2024 Orders Only Department of Otorhinolaryngology in [place], [place] [address] [place] [phone] Rafal Rankin M.D. 05/20/2024 8:00 AM CDT Comprehensive Visit Department of Ophthalmology in [place], [place] [address] [place] [phone] Kandace Shankar M.D. 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 Diplopia (Primary Dx) 05/17/2024 5:20 PM CDT Ancillary Procedure Department of Ophthalmology 05/17/2024 4:30 PM CDT Ancillary Procedure Department of Ophthalmology in [place], [place] [address] [place] [phone] Kandace Shankar M.D. 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 Scheduling 05/07/2024 Orders Only Division of Gastroenterology in [address] [phone] Stan Hernandez M.D. 05/03/2024 4:17 PM CDT - 05/03/2024 11:59 PM CDT Hospital Encounter Department of Laboratory Medicine and Pathology, [facility], in [address] [address] Stan Hernandez M.D. Dysphagia; Diarrhea; Heartburn Discharge Disposition: Home or Self Care 05/03/2024 2:10 PM CDT Comprehensive Visit Division of Gastroenterology in [address] [phone] Rafal Rankin M.D. Mehanna Al Snih, Gad, M.D. Heartburn (Primary Dx); Dysphagia; Gastroparesis; Diarrhea 05/02/2024 9:00 AM CDT Clinical Communication Virtual Review in [address] [phone] Previsit Preparation (DEBORAH DD) from Last 3 Months Social History Tobacco Use Types Packs/Day Years Used Date Smoking Tobacco: Former Cigarettes Q uit: 1985 Smokeless Tobacco: Never Tobacco Cessation:Counseling Given: Not Answered Alcohol Use Standard Drinks/Week Comments Not Currently 0 (1 standard drink = 0.6 oz pur e alcohol) [facility] Utilities Answer Date Recorded In the past [address], gas, oil, or water [employer] threatened to shut off services in your [...] your living situation today? I have a [facility]'s place to live 03/12/2024 Sex and Gender [...] CDT Comprehensive Visit Department of Neurology in [place], [place] [address] [place] [phone] Cristiane Palacio APRN, C.N.P., D.N.P. [address] [place] [phone] Kriss Wharton M.S., [facility] INJECTION [facility]IC[facility] [address] [place] [phone] 08/15/2024 9:00 AM CDT Appointment Department of Radiology, [facility], in [place], [place] [address] [place] [phone] Cristiane Palacio APRN, C.N.P., [place] [phone] Kriss Wharton M.S., [facility] INJECTION SERVIC[facility] [address] [place] [phone] 08/15/2024 9:45 AM CDT Clinical Support Department of Neurology in [address] [phone] Cristiane Palacio, GRUPO, C.N.P., D.N.P. [address] [place] [phone] Kriss Wharton M.S., [facility] INJECTION SERVIC[facility] [address] [place] [phone] 08/15/2024 1:00 PM CDT Office Visit Department of Otorhinolaryngology in [address] [phone] Rafal Rankin M.D. [address] [place] [phone] 08/15/2024 2:30 PM CDT Ancillary Procedure Department of Ophthalmology in [address] [phone] Kandace Shankar M.D. [address] [place] [phone] 08/15/2024 3:00 PM CDT Comprehensive Visit Department of Ophthalmology in [address] [phone] Peña Carver M.D. [address] [place] [phone] 08/15/2024 4:15 PM CDT Office Visit Department of Ophthalmology in [address] [phone] Kandace Shankar M.D. [address] [place] [phone] 08/20/2024 3:00 PM CDT Appointment Division of Gastroenterology in [place], [place] [address] [place] [phone] Cristiane Palacio, GRUPO, C.N.P., D.N.P. [address] [place] [phone] Health Maintenance Due Date Last Done Comments CT Colonography 1955 Cologuard 1955 FIT 1955 Hepatitis C Screening 1955 Zoster Vaccines (3 of 3) 10/19/2018 018, 08/24/2018, 06/15/2018, Additional history exists Depression Screening (Annual PHQ-2) 11/13/2023 COVID-19 Vaccine (2022-2 4 season) 2024 10/24/2022, 02/28/2022, 10/11/2021, Additional history exists Influenza Vaccine (#1) 2024 , 07/22/2022, 09/02/2021, Additional history exists Fasting Glucose for Diabetes Screening 02/27/2027 02/28/2024, 02/27/2024, 02/26/2024, Additional history exists Colonoscopy 06/14/2031 06/14/2021 Colorectal Cancer Screening 06/14/2031 DTaP,Tdap,and Td Vaccines (4 - Td or Tdap) 08/14/2033 08/14/2023, 07/22/2022, 05/04/2012, Additional history exists Pneumococcal vaccine (65+ years) Completed 06/07/2023, 06/07/2023, 01/12/2022 Abdominal Aortic Aneurysm (A AA) Screen Completed 09/19/2023 Fall Risk Screen (Annual) Completed 07/23/2024 Procedures Procedure Name Priority Date/Time Associated Diagnosis Comments US GUIDANCE INTRAOPERATIVE RAD - Routine (most inpatients and all outpatients) 07/23/2024 1:42 PM CDT Sialorrhea INJECTION BOTOX 07/23/2024 12:56 PM CDT Sialorrhea Case Notes BINGO WORKER at 11:23 OTORHINOLARYNGOLOGY IMAGE EXAM Routine 07/18/2024 1:20 AM CDT SENSORY MOTOR EXAM Routine 05/20/2024 8:44 AM CDT Esotropia OPTICAL COHERENCE TOMOGRAPHY (OCT) - OPTIC NERVE - OU - BOTH EYES Routine 05/17/2024 5:29 PM CDT 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 DIFFICILE TOXIN PCR, [...] RAD IMAGI NG PROCEDURES Performing Organization Address [facility] de Phone Number [facility] NA * Sensory Motor Exam (05/20/2024 8:44 AM CDT) Narrative OPHTHALMOLGY NON-IMAGING ORDERS - 05/20/2024 9:49 AM CDT I have reviewed the medical record and the sensorimotor exam documentation. The findings are consistent with my previously initiated care plan. I agree with the impression, plan, and follow up as entered by the sales ledger administrator. Notes See note. Kandace Shankar M.D. OPHTH TOMOGRAPHY Performing Organization Address [facility] de Phone Number OPHTHALMOL NON-IMAGING ORDERS * Optical Coherence Tomography - Optic Nerve - OU - Both Eyes (05/17/2024 5:29 PM CDT) Narrative OPHTHALMOLOGY IMAGING EXAM - 05/23/2024 1:46 PM CDT OCT device used was Normalrus . Right Eye Reliability was good. Average RNFL was 93.00 microns. Ganglion cell layer was 45.00 microns. Left Eye Reliability was good. Average RNFL was 91.00 microns. Ganglion cell layer was 29.00 microns. Notes [facility] See note. Kandace Shankar M.D. OPHTH TOMOGRAPHY Performing Organization Address [facility] de Phone Number OPHTHALMOLOGY IMAGING EXAM * [...] RAD IMAGI NG PROCEDURES Performing Organization Address [facility] de Phone Number [facility] NA * Automated [...] OPHTH VISUAL FIEL D Performing Organization Address [facility] de Phone Number OPHTHALMOLOGY IMAGING EXAM * Clostridioides (Clostridium) Difficile Toxin, Molecular Detection, PCR, Feces (05/09/2024 8:50 AM CDT) C. difficile Toxin, F Negative Negative 05/09/2024 12:00 PM CDT DTL Stool (Stool) 05/09/2024 8:5 0 AM CDT 05/09/2024 9:40 AM CDT Stan Izaguirre M.D. LAB MICROBIOLOG Y - GENERAL ORDERABLES [facility] [address] [place] [address], [facility] DTL [facility] [address] [place] [address] * (ABNORMAL) Basic Metabolic Panel (02/28/2024 12:21 [...] CDT 02/28/2024 12:59 AM CDT Kiki Pham APRN, C.N.P., M.S.N. LAB BLOOD ADD-ON [facility] [address] [place] [address], [place] DTL [facility] [address] [place] [address] from Last 3 Months or Most Recently Relevant to Health Maintenance Advance Directives For more information, please contact: [phone] Documents on File Type Date Recorded Patient Make Up Artist Expl anation Advance Directives 02/28/2024 2:04 PM Malika Guillen HCPOA/ADVOCATE/AGENT/R EPRESENTATIVE/SURROGAT E * Full Code (Latest Code Status on File) Date Activated Date Inactivated Comments 02/27/2024 12:46 AM 02/28/2024 4:31 PM Question Answer Comments Full Code: Discussed Healthcare Agents on File Name Relationship Healthcare Agent Latasha Guillen Spouse Health Care Agent Malika Bryant Sister First Alternate Health Care Agent Care Teams Peoplesoft Business Analyst Relationship Specialty Start Date End Date Elsewhere, Pcp PCP - General Internal Medicine 02/26/24
--- OUTSIDE RECORDS SUMMARY | 2024-07-25 22:40 | XMS_ITS ---
Author Organization [facility] Address [address] [place] [address] Care Team Providers Care Physical Laboratory Assistant Name Role Phone Unavailable Unavailable Unavailable Surgery Details Not on file Complications Check Surgery Details section. Procedure Estimated Blood Loss Check Surgery Details section. Procedure Findings Check Surgery Details section. Procedure Specimens Taken Check Surgery Details section.
--- OUTSIDE RECORDS SUMMARY | 2024-07-25 22:40 | XMS_ITS | Clinical Summary ---
Author Organization [facility] Address [address], [place] [address] Care Team Providers Care Bean Viner Name Role Phone Found, No Pcp MD Primary Care Provider Unavailab le Source Comments You are receiving this document as you are listed as the primary care provider,follow-up provider, or the patient has been referred to you for consultation.This is in compliance with the Medicare and[facility] EHR Incentive Program,which states Providers who transition their patient to another setting of careor provider of care or refers their patient to another provider of care shouldprovide summary care record for each transition of care or referral. 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 10/20/2017 Active tamsulosin (FLOMAX) 0.4 MG CAPS capsule 3 10/30/2018 Active multivitamin (THERAGRAN) tablet Take 1 Tablet by mouth. 01/25/2016 Active Cholecalciferol (VITAMIN D3) 2000 units Take 2,000 Units by mouth. 01/25/2016 Active aspirin, enteric-coated 81 MG enteric coated tablet Take 81 mg by mouth. 01/25/2016 Active omega-3 fatty acids (FISH OIL) 1000 MG capsule Take 2 g by mouth daily. Active Blood Pressure Monitoring (BLOOD PRESSURE KIT) 01/06/2016 Acti ve pentoxifylline (TRENTAL) 400 MG controlled release tablet Take 400 mg by mouth. 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 10/25/2017 Other specific arthropathies , not elsewhere classified, multiple sites 05/25/2011 Overview (07/05/2017): Other specified arthropathy, multiple sites Immunizations Name Administration Dates Next Due Flu Vac (3+ yrs) 08/19/2013, 3,08/27/2010, 009,09/05/2008,09/06/2007,09/13/2006,07/2005,09/09/2003 Flu Vac Preserv Free (3+yrs) 08/27/2008 Influenza ([place] Only) (Flul aval Quad 0.5, 3+ yrs) 08/22/2016 Influenza H0D9-97 2009 Influenza IIV4 (Quadrivalent ) 0.5mL (32471) 08/24/2018,09/08/2017,09/11/2015, 014 Td 11/13/1996 Tdap 05/04/2012 Zoster (Zostavax) 05/04/2012 Zoster RZV (Shingrix) 08/24/2018,06/15/2018 Social History Tobacco Use Types Packs/Day Years Used Date Smoking Tobacco: Former Smokeless Tobacco: Former Quit: 11/12/1985 Comments:Quit smoking: Sex and Gender Information Value Date Recorded Sex Assigned at Not on file Gender Identity Not on file Sexual Orientation Not on file Last Filed Vital Signs Vital Sign Reading Time Taken Comments Blood Pressure 128/77 10/28/2020 1:49 PM 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 Pulse 69 10/28/2020 1:49 PM 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 Temperature 36.4 ??C (97.5 ??F) 10/28/2020 1 :49 PM 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 Respiratory Rate 18 11/11/2015 3:07 PM 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 Oxygen Saturation - - Inhaled Oxygen Concentration - - Weight 85.6 kg (188 lb 12.8 oz) 019 4:32 PM 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 Height 182.9 cm (6') 03/26/2009 2:31 PM CDT C: 182.9cm Body Mass Index - - Plan of Treatment Health Maintenance Due Date Last Done Comments Colon Cancer Screening Plan Due 1955 Hep C Screening (Preventive Services) 1955 MTM Covered 1955 PSA Screening Discussion 1955 Adult Preventive Visit 1973 Cholesterol 1990 Pneumococcal 65+ Yrs (1 - PCV) 2020 DTaP/Tdap/Td (2 - Tdap) 05/04/2022 05/04/20 12, 07/12/2007, 11/13/1996 COVID-19 Vaccine (2 - season) 2024 12/29/2020 Influenza (#1) 2024 08/04/2020, 01/2019, 08/24/2018, Additional history exists Zoster/Shingles Completed 08/24/2018, 01/2018, 05/04/2012 HepA Aged Out No longer eligi ble based on patient's age to complete this topic HepB Aged Out No longer eligi ble based on patient's age to complete this topic Hib Aged Out No longer eligi ble based on patient's age to complete this topic IPV (Polio) Aged Out No longer eligi ble based on patient's age to complete this topic MCV4 Aged Out No longer eligi ble based on patient's age to complete this topic Care Teams Bean Viner Relationship Specialty Start Date End Date Found, No Pcp, [address] [place] [place] [address] PCP - General 12/6/18
--- OUTSIDE RECORDS SUMMARY | 2024-07-25 22:40 | XMS_ITS | Encounter Summary ---
Author Organization [facility] Address [address] [place] [address] Care Team Providers Care Cosmetic Surgeon Name Role Phone Elsewhere, Pcp Primary Care Provider Unavailabl e Encounter Details Date Type Department Care Team (Latest Contact Info) Description 07/18/2024 1:20 AM CDT Ancillary Procedure Department of Otorhinolaryngology Social History Tobacco Use Types Packs/Day Years Used Date Smoking Tobacco: Former Cigarettes Q uit: 1985 Smokeless Tobacco: Never Alcohol Use Standard Drinks/Week Comments Not Currently 0 (1 standard drink = 0.6 oz pur e alcohol) [facility] Utilities Answer Date Recorded In the past 12 months has e [employer], gas, oil, or water [employer] threatened to shut off services in your [...] your living situation today? I have a [facility] place to live 03/12/2024 Sex and Gender Information Value Date Recorded Sex Assigned at Male 03/12/2024 1:38 PM CDT Gender Identity Male 03/12/2024 1:38 PM CDT Sexual Orientation Straight 03/12/2024 1: 38 PM CDT documented as of this encounter Plan of Treatment Upcoming Encounters Date Type Department Care Team (Latest Contact Info) Description 08/15/2024 8:00 AM CDT Comprehensive Visit Department of Neurology in [place], [place] [address] [place] [phone] Cristiane Palacio, GRUPO, C.N.P., D.N.P. [address] [place] [phone] Kriss Wharton M.S., [facility] [address] [place] [address] [phone] 08/15/2024 9:00 AM CDT Appointment Department of Radiology, [facility], in [place], [place] [address] [place] [phone] Cristiane Palacio APRN, C.N.P., D.N.P. [address] [place] [phone] Kriss Wharton M.S., [employer]-HOUSE FELLOW [address] [place] [phone] 08/15/2024 9:45 AM CDT Clinical Support Department of Neurology in [address] [phone] Cristiane Palacio APRN, C.N.P., D.N.P. [address] [place] [phone] Kriss Wharton M.S., [employer]-HOUSE FELLOW [address] [place] [phone] 08/15/2024 1:00 PM CDT Office Visit Department of Otorhinolaryngology in [address] [phone] Rafal Rankin M.D. [address] [place] [phone] 08/15/2024 2:30 PM CDT Ancillary Procedure Department of Ophthalmology in [address] [phone] Kandace Shankar M.D. [address] [place] [phone] 08/15/2024 3:00 PM CDT Comprehensive Visit Department of Ophthalmology in [address] [phone] Peña Carver M.D. [address] [place] [phone] 08/15/2024 4:15 PM CDT Office Visit Department of Ophthalmology in [place], [place] [address] [place] [phone] Kandace Shankar M.D. [address] [place] [phone] 08/20/2024 3:00 PM CDT Appointment Division of Gastroenterology in [place], [place] [address] [place] [phone] Cristiane Palacio APRN, C.N.P., D.N.P. [address] [place] [phone] documented as of this encounter Procedures Procedure Name Priority Date/Time Associated Diagnosis Comments OTORHINOLARYNGOLOGY IMAGE EXAM Routine 07/18/2024 1:20 AM CDT documented in this encounter Results * Otorhinolaryngology Image Exam-Otorhinolaryngology Image Exam (07/18/2024 1:20 AM CDT) Narrative [facility] - 07/18/2024 1:35 PM CDT This order has been created and auto-finalized to support the import of images acquired without order. The clinical documentation to support these images can be found on the encounter that produced images. Provider Not In System IMG NON RAD IMAGI NG PROCEDURES IIID NA documented in this encounter Visit Diagnoses Not on filedocumented in this encounter Care Teams Cosmetic Surgeon Relationship Specialty Start Date End Date Elsewhere, Pcp PCP - General Internal Medicine 02/26/24 documented as of this encounter
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
--- OUTSIDE RECORDS SUMMARY | 2024-07-25 22:41 | XMS_ITS | Encounter Summary ---
Author Organization [facility] Address [address] [place] [address] Care Team Providers Care Purification Supervisor Name Role Phone Elsewhere, Pcp Primary Care Provider Unavailabl e Reason for Referral * Outpatient (Routine) - Authorized Specialty Diagnoses / Procedures Referred By Contwaldemar t Referred To Contact Ophthalmology Diagnoses Diplopia Kandace Shankar M.D. [address] [place] [phone] [facility] Referral ID Status Reason Start Date Expiration Date V isits Requested Visits Authorized [id number] Authorized 05/20/2024 11/19/2025 1 1 Scheduling Instructions Coordinate with return visit in Neuro-Ophthalmology with Dr. Shankar Encounter Details Date Type Department Care Team (Late st Contact Info) Description 05/20/2024 Orders Only Department of Ophthalmology in [place], [place] [address] [place] [phone] Kandace Shankar M.D. [address] [place] [phone] Diplopia (Primary Dx) Social History Tobacco Use Types Packs/Day Years Used Date Smoking Tobacco: Former Cigarettes Q uit: 1985 Smokeless Tobacco: Never Alcohol Use Standard Drinks/Week Comments Not Currently 0 (1 standard drink = 0.6 oz pur e alcohol) [facility] Utilities Answer Date Recorded In the [...] your living situation today? I have a [facility] place to live 03/12/2024 Sex and [...] CDT Comprehensive Visit Department of Neurology in [address] [phone] Cristiane Palacio APRN, C.N.P., D.N.P. [address] [place] [phone] Kriss Wharton M.S., [facility] [employer] [address] [place] [address] [phone] 08/15/2024 9:00 AM CDT Appointment Department of Radiology, [facility], in [address] [phone] Cristiane Palacio APRN, C.N.P., D.N.P. [address] [place] [phone] Kriss Wharton M.Chris, [facility] [address] [place] [address] [phone] 08/15/2024 9:45 AM CDT Clinical Support Department of Neurology in [address] [phone] Cristiane Palacio APRN, C.N.P., D.N.P. [address] [place] [phone] Kriss Wharton M.Chris, [facility] [facility] [address] [place] [phone] 08/15/2024 1:00 PM CDT Office Visit Department of Otorhinolaryngology in [place], [place] [address] [place] [phone] Rafal Rankin M.D. [address] [place] [phone] 08/15/2024 2:30 PM CDT Ancillary Procedure Department of Ophthalmology in [place], [place] [address] [place] [phone] Kandace Shankar M.D. [address] [place] [phone] 08/15/2024 3:00 PM CDT Comprehensive Visit Department of Ophthalmology in [place], [place] [address] [place] [phone] Peña Carver M.D. [address] [place] [phone] 08/15/2024 4:15 PM CDT Office Visit Department of Ophthalmology in [place], [place] [address] [place] [phone] Kandace Shankar M.D. [address] [place] [phone] 08/20/2024 3:00 PM CDT Appointment Division of Gastroenterology in [place], [place] [address] [place] [phone] Cristiane Palacio, GRUPO, C.N.P., D.N.P. [address] [place] [phone] Scheduled Referrals Name Type Priority Associated Diagnoses Order Schedule Ophthalmology - Adult strabismus consult (clinic) Outpatient Referral Routine Diplopia Expected: 08/20/2024, Expires: 08/20/2025 documented as of this encounter Visit Diagnoses Diagnosis Diplopia- Primary documented in this encounter Care Teams Purification Supervisor Relationship Specialty Start Date End Date Elsewhere, Pcp PCP - General Internal Medicine 02/26/24 documented as of this encounter
--- OUTSIDE RECORDS SUMMARY | 2024-07-25 22:41 | XMS_ITS | Encounter Summary ---
Author Organization [facility] Address [address] [place] [address] Care Team Providers Care Ambulette Driver Name Role Phone Elsewhere, Pcp Primary Care Provider Unavailabl e Reason for Referral * Speech Pathology (Routine) - Authorized Specialty Diagnoses / Procedures Referred By Karine velasco Referred To Contact Diagnoses Dysphagia Procedures FACILITY ATTENDANT - Ongoing treatment Cristiane Palacio APRN, C.N.P., D.N.P. [address] [place] [phone] [facility] Referral ID Status Reason Start Date Expiration Date V isits Requested Visits Authorized [id number] Authorized 06/18/2024 06/18/2025 99 99 * Outpatient (Routine) - Authorized Specialty Diagnoses / Procedures Referred By Karine velasco Referred To Contact Diagnoses Dysphagia Procedures FL Swallow Function with Video and Speech or OT Cristiane Palacio APRN, C.N.P., D.N.P. [address] [place] [phone] [facility] Referral ID Status Reason Start Date Expiration Date V isits Requested Visits Authorized [id number] Authorized 06/18/2024 06/18/2025 1 1 * Speech Pathology (Routine) - Authorized Specialty Diagnoses / Procedures Referred By Contac t Referred To Contact Diagnoses Dysphagia Procedures FACILITY ATTENDANT Dysphagia evaluate and treat Cristiane Palacio APRN C.N.PEdith, D.N.P. [address] [place] [phone] [facility] Referral ID Status Reason Start Date Expiration Date V isits Requested Visits Authorized [id number] Authorized 06/18/2024 06/18/2025 99 99 Encounter Details Date Type Department Care Team (Late st Contact Info) Description 06/18/2024 Orders Only Division of Endocrinology in [place], [place] [address] [place] [phone] Cristiane Palacio APRN, C.N.P., D.N.P. [address] [place] [phone] Dysphagia (Primary Dx) Social History Tobacco Use Types Packs/Day Years Used Date Smoking Tobacco: Former Cigarettes Q uit: 1985 Smokeless Tobacco: Never Alcohol Use Standard Drinks/Week Comments Not Currently 0 (1 standard drink = 0.6 oz pur e alcohol) [facility] Utilities Answer Date Recorded In the past 12 months has e electric, gas, oil, or water [employer] threatened to shut off services in your [...] your living situation today? I have a [facility] place to live 03/12/2024 Sex [...] CDT Comprehensive Visit Department of Neurology in [place], [place] [address] [place] [address] Cristiane Palacio, GRUOP, C.N.P., D.N.P. [address] [place] [phone] Kriss Wharton M.S., [facility] [address] [place] [phone] 08/15/2024 9:00 AM CDT Appointment Department of Radiology, [facility], in [place], [place] [address] [place] [phone] Cristiane Palacio APRN, C.N.PEdith, D.N.P. [address] [place] [phone] Kriss Wharton M.S., [facility] [address] [place] [phone] 08/15/2024 9:45 AM CDT Clinical Support Department of Neurology in [place], [place] [address] [place] [phone] Cristiane Palacio APRN, C.N.P., D.N.P. [address] [place] [phone] Kriss Wharton M.S., [facility] [address] [place] [phone] 08/15/2024 1:00 PM CDT Office Visit Department of Otorhinolaryngology in [place], [place] [address] [place] [phone] Rafal Rankin M.D. [address] [place] [phone] 08/15/2024 2:30 PM CDT Ancillary Procedure Department of Ophthalmology in [place], [place] [address] [place] [phone] Kandace Shankar M.D. [address] [place] [phone] 08/15/2024 3:00 PM CDT Comprehensive Visit Department of Ophthalmology in [place], [place] [address] [place] [phone] Peña Carver M.D. [address] [place] [phone] 08/15/2024 4:15 PM CDT Office Visit Department of Ophthalmology in [place], [place] [address] [place] [address] Kandace Shankar M.D. [address] [place] [phone] 08/20/2024 3:00 PM CDT Appointment Division of Gastroenterology in [place], [place] [address] [place] [phone] Cristiane Palacio, GRUPO, C.N.P., D.N.P. [address] [place] [phone] Scheduled Orders Name Type Priority Associated Diagnoses Orde r Schedule FL Swallow Function with Video and Speech or OT Imaging RAD - Routine (most inpatients and all outpatients) Dysphagia Expected: 06/18/2024, Expires: 09/18/2025 documented as of this encounter Visit Diagnoses Diagnosis Dysphagia- Primary documented in this encounter Care Teams Ambulette Driver Relationship Specialty Start Date End Date Elsewhere, Pcp PCP - General Internal Medicine 02/26/24 documented as of this encounter
--- OUTSIDE RECORDS SUMMARY | 2024-07-25 22:41 | XMS_ITS | Encounter Summary ---
Author Organization [facility] Address [address] [place] [phone] Care Team Providers Care Reel Man Name Role Phone Elsewhere, Pcp Primary Care Provider Unavailabl e Reason for Referral * Outpatient (Routine) - Closed Specialty Diagnoses / Procedures Referred By Contwaldemar t Referred To Contact Otorhinolaryngology Rafal Rankin M.D. [address] [place] [phone] [facility] Referral ID Status Reason Start Date Expiration Date Visits Re quested Visits Authorized [id number] Closed 07/17/2024 01/16/2026 1 1 Scheduling Instructions Ok to add on at [address] Rankin 07/18/24 Encounter Details Date Type Department Care Team (Late st Contact Info) Description 07/17/2024 Orders Only Department of Otorhinolaryngology in [place], [place] [address] [place] [phone] Rafal Rankin M.D. [address] [place] [phone] Social History Tobacco Use Types Packs/Day Years Used Date Smoking Tobacco: Former Cigarettes Q uit: 1985 Smokeless Tobacco: Never Alcohol Use Standard Drinks/Week Comments Not Currently 0 (1 standard drink = 0.6 oz pur e alcohol) [facility] Utilities Answer Date Recorded In [...] your living situation today? I have a [facility] place to live 03/12/2024 Sex and Gender Information Value Date Recorded Sex Assigned at Male 03/12/2024 1:38 PM CDT Gender Identity Male 03/12/2024 1:38 PM CDT Sexual Orientation Straight 03/12/2024 1: 38 PM CDT documented as of this encounter Plan of Treatment Upcoming Encounters Date Type Department Care Team (Latest Contact Info) Description 08/15/2024 8:00 AM CDT Comprehensive Visit Department of Neurology in [place], [place] [address] [place] [phone] Cristiane Palacio APRN, C.N.P., D.N.P. [address] [place] [phone] Kriss Wharton M.S., [facility]-CAMPAIGN DEVELOPER [address] [place] [address] [phone] 08/15/2024 9:00 AM CDT Appointment Department of Radiology, [facility], in [place], [place] [address] [place] [phone] Cristiane Palacio APRN, C.N.P., D.N.P. [address] [place] [phone] Kriss Wharton M.SEdith, [facility]-CAMPAIGN DEVELOPER [address] [place] [address] [phone] 08/15/2024 9:45 AM CDT Clinical Support Department of Neurology in [address] [phone] Cristiane Palacio APRN, C.N.P., D.N.P. [address] [place] [phone] Kriss Wharton M.Chris, [facility]-CAMPAIGN DEVELOPER [address] [place] [address] [phone] 08/15/2024 1:00 PM CDT Office Visit Department of Otorhinolaryngology in [place], [place] [address] [place] [phone] Rafal Rankin M.D. [address] [place] [phone] 08/15/2024 2:30 PM CDT Ancillary Procedure Department of Ophthalmology in [place], [place] [address] [place] [phone] Kandace Shankar M.D. [address] [place] [phone] 08/15/2024 3:00 PM CDT Comprehensive Visit Department of Ophthalmology in [place], [place] [address] [place] [phone] Peña Carver M.D. [address] [place] [phone] 08/15/2024 4:15 PM CDT Office Visit Department of Ophthalmology in [place], [place] [address] [place] [phone] Kandace Shankar M.D. [address] [place] [phone] 08/20/2024 3:00 PM CDT Appointment Division of Gastroenterology in [place], [place] [address] [place] [phone] Cristiane Palacio, GRUPO, C.N.P., D.N.P. [address] [place] [phone] Scheduled Referrals Name Type Priority Associated Diagnoses Order Schedule Otorhinolaryngology office visit (clinic) Outpatient Referral Routine Expected: 07/18/2024, Expires: 10/16/2025 documented as of this encounter Visit Diagnoses Not on filedocumented in this encounter Care Teams Reel Man Relationship Specialty Start Date End Date Elsewhere, Pcp PCP - General Internal Medicine 02/26/24 documented as of this encounter
--- OUTSIDE RECORDS SUMMARY | 2024-07-25 22:41 | XMS_ITS | Encounter Summary ---
Author Organization [facility] Address [address] [place] [address] Care Team Providers Care Claims Director Name Role Phone Elsewhere, Pcp Primary Care Provider Unavailabl e Reason for Referral * Outpatient (Routine) - Authorized Specialty Diagnoses / Procedures Referred By Karine t Referred To Contact Diagnoses Dietary Counseling And Surveillance For Enteral Nutrition Procedures EGD ? Percutaneous Endoscopic Gastrostomy/Jejunostomy Cristiane Palacio APRN, C.N.P., D.N.P. [address] [place] [phone] [facility] Referral ID Status Reason Start Date Expiration Date V isits Requested Visits Authorized [id number] Authorized 06/18/2024 06/18/2025 1 1 * Outpatient (Routine) - Authorized Specialty Diagnoses / Procedures Referred By Contwaldemar t Referred To Contact Endocrinology Diagnoses Dietary Counseling And Surveillance For Enteral Nutrition Cristiane Palacio APRN, C.N.P., D.N.P. [address] [place] [phone] [facility] Referral ID Status Reason Start Date Expiration Date V isits Requested Visits Authorized [id number] Authorized 06/18/2024 12/18/2025 1 1 Scheduling Instructions TRIAGE ONLY Encounter Details Date Type Department Care Team (Late st Contact Info) Description 06/18/2024 Orders Only Division of Endocrinology in [place], [place] [address] [place] [phone] Ankit Medina REdithNEdith Dietary Counseling And Surveillance For Enteral Nutrition (Primary Dx) Social History Tobacco Use Types Packs/Day Years Used Date Smoking Tobacco: Former Cigarettes Q uit: 1985 Smokeless Tobacco: Never Alcohol Use Standard Drinks/Week Comments Not Currently 0 (1 standard drink = 0.6 oz pur e alcohol) [facility] Utilities Answer Date Recorded In the past 12 months has [facility] [employer], gas, oil, or water [employer] threatened to shut off services in your [...] your living situation today? I have a [facility] place to live 03/12/2024 Sex and [...] CDT Comprehensive Visit Department of Neurology in [place], [place] [address] [place] [phone] Cristiane Palacio APRN, C.N.P., D.N.P. [address] [place], [place] [phone] Kriss Wharton M.S., [facility]RECEIVER SETTER [address] [place] [phone] 08/15/2024 9:00 AM CDT Appointment Department of Radiology, [facility], in [place], [place] [address] [place] [phone] Cristiane Palacio APRN, C.N.P., D.N.P. [address] [place] [phone] Kriss Wharton M.S., [facility]RECEIVER SETTER [address] [place] [phone] 08/15/2024 9:45 AM CDT Clinical Support Department of Neurology in [place], [place] [address] [place] [phone] Cristiane Palacio, GRUPO C.N.P., D.N.P. [address] [place] [phone] Krsis Wharton M.S., [facility]RECEIVER SETTER [address] [place] [phone] 08/15/2024 1:00 PM CDT Office Visit Department of Otorhinolaryngology in [address] [phone] Rafal Rankin M.D. [address] [place] [phone] 08/15/2024 2:30 PM CDT Ancillary Procedure Department of Ophthalmology in [address] [phone] Kandace Shankar M.D. [address] [place] [phone] 08/15/2024 3:00 PM CDT Comprehensive Visit Department of Ophthalmology in [address] [phone] Peña Carver M.D. [address] [place] [phone] 08/15/2024 4:15 PM CDT Office Visit Department of Ophthalmology in [address] [phone] Kandace Shankar M.D. [address] [place] [phone] 08/20/2024 3:00 PM CDT Appointment Division of Gastroenterology in [place], [place] [address] [place] [phone] Cristiane Palacio, GRUPO, C.N.P., D.N.P. [address] [place] [address] Scheduled Orders Name Type Priority Associated Diagnoses Orde r Schedule EGD ? Percutaneous Endoscopic Gastrostomy/Jejunostomy GI Routine Dietary Counseling And Surveillance For Enteral Nutrition Expected: 08/15/2024, Expires: 09/18/2025 Scheduled Referrals Name Type Priority Associated Diagnoses Orde r Schedule Endocrinology - Home enteral medical nutrition therapy consult (clinic) Outpatient Referral Routine Dietary Counseling And Surveillance For Enteral Nutrition Expected: 06/18/2024 (Approximate), Expires: 09/18/2025 documented as of this encounter Visit Diagnoses Diagnosis Dietary Counseling And Surveillance For Enteral Nutrition- Primary documented in this encounter Care Teams Claims Director Relationship Specialty Start Date End Date Elsewhere, Pcp PCP - General Internal Medicine 02/26/24 documented as of this encounter
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
--- OUTSIDE RECORDS SUMMARY | 2024-07-25 22:41 | XMS_ITS | Encounter Summary ---
Author Organization [facility] Address [address] [place] [address] Care Team Providers Care Electric Meter Installer Name Role Phone Elsewhere, Pcp Primary Care Provider Unavailabl e Encounter Details Date Type Department Care Team (Late st Contact Info) Description 05/17/2024 2:55 PM CDT Ancillary Procedure Department of Ophthalmology Social History Tobacco Use Types Packs/Day Years Used Date Smoking Tobacco: Former Cigarettes Q uit: 1985 Smokeless Tobacco: Never Alcohol Use Standard Drinks/Week Comments Not Currently 0 (1 standard drink = 0.6 oz pur e alcohol) [facility] Utilities Answer Date Recorded In the past 12 months has e [employer], gas, oil, or water [employer] threatened to shut off services in your [...] your living situation today? I have a [facility] place to live 03/12/2024 Sex and Gender Information Value Date Recorded Sex Assigned at Male 03/12/2024 1:38 PM CDT Gender Identity Male 03/12/2024 1:38 PM CDT Sexual Orientation Straight 03/12/2024 1: 38 PM CDT documented as of this encounter Plan of Treatment Upcoming Encounters Date Type Department Care Team (Latest Contact Info) Description 08/15/2024 8:00 AM CDT Comprehensive Visit Department of Neurology in [place], [place] [address] [place] [phone] Cristiane Palacio, GRUPO, C.N.P., D.N.P. [address] [place] [phone] Kriss Wharton M.S., [facility]-PRODUCTION MACHINE TENDER [address] [place] [phone] 08/15/2024 9:00 AM CDT Appointment Department of Radiology, [facility], in [place], [place] [address] [place] [phone] Cristiane Palacio APRN C.N.P., D.N.P. [address] [place] [phone] Kriss Wharton M.S., CCC-PRODUCTION MACHINE TENDER [address] [place] [phone] 08/15/2024 9:45 AM CDT Clinical Support Department of Neurology in [address] [phone] Cristiane Palacio APRN, C.N.P., D.N.P. [address] [place] [phone] Kriss Wharton M.S., CCC-PRODUCTION MACHINE TENDER [address] [place] [phone] 08/15/2024 1:00 PM CDT Office Visit Department of Otorhinolaryngology in [address] [phone] Rafal Rankin M.D. [address] [place] [phone] 08/15/2024 2:30 PM CDT Ancillary Procedure Department of Ophthalmology in [address] [phone] Kandace Shankar M.D. [address] [place] [phone] 08/15/2024 3:00 PM CDT Comprehensive Visit Department of Ophthalmology in [place], [place] [address] [place] [phone] Peña Carver M.D. [address] [place] [phone] 08/15/2024 4:15 PM CDT Office Visit Department of Ophthalmology in [place], [place] [address] [place] [phone] Kandace Shankar M.D. [address] [place] [phone] 08/20/2024 3:00 PM CDT Appointment Division of Gastroenterology in [place], [place] [address] [place] [phone] Cristiane Palacio APRN, C.N.P., D.N.P. [address] [place] [phone] documented as of this encounter Procedures Procedure Name Priority Date/Time Associated Diagnosis Comments OPHTHALMOLOGY IMAGE EXAM Routine 05/17/2024 2:55 PM CDT documented in this encounter Results * Visual Lyon (VF)-Ophthalmology Image Exam (05/17/2024 2:55 PM CDT) 05/17/2024 2:54 PM CDT Narrative IIMS - 05/17/2024 3:15 PM CDT This order has been created and auto-finalized to support the import of images acquired without order. The clinical documentation to support these images can be found on the encounter that produced images. Provider Not In System IMG NON RAD IMAGI NG PROCEDURES IIMS NA documented in this encounter Visit Diagnoses Not on filedocumented in this encounter Care Teams Electric Meter Installer Relationship Specialty Start Date End Date Elsewhere, Pcp PCP - General Internal Medicine 02/26/24 documented as of this encounter
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
--- OUTSIDE RECORDS SUMMARY | 2024-07-25 22:41 | XMS_ITS | Encounter Summary ---
Author Organization [facility] Address [address] [place] [address] Care Team Providers Care Slip Injector And Applicator Name Role Phone Elsewhere, Pcp Primary Care Provider Unavailabl e Encounter Details Date Type Department Care Team (Late st Contact Info) Description 05/17/2024 5:20 PM CDT Ancillary Procedure Department of Ophthalmology Social History Tobacco Use Types Packs/Day Years Used Date Smoking Tobacco: Former Cigarettes Q uit: 1985 Smokeless Tobacco: Never Alcohol Use Standard Drinks/Week Comments Not Currently 0 (1 standard drink = 0.6 oz pur e alcohol) [facility] Utilities Answer Date Recorded In the past 12 months has e [employer], gas, oil, or water [employer] threatened to shut off services in your [...] your living situation today? I have a [facility] place to live 03/12/2024 Sex and [...] CDT Comprehensive Visit Department of Neurology in [place], [place] [address] [place] [phone] Cristiane Palacio, GRUPO, C.N.P., D.N.P. [address] [place] [phone] Kriss Wharton M.S., [facility] [address] [place] [phone] 08/15/2024 9:00 AM CDT Appointment Department of Radiology, [facility], in [place], [place] [address] [place] [phone] Cristiane Palacio APRN C.N.P., D.N.P. [address] [place] [phone] Kriss Wharton M.S., [employer] [address] [place] [phone] 08/15/2024 9:45 AM CDT Clinical Support Department of Neurology in [address] [phone] Cristiane Palacio APRN, C.N.P., D.N.P. [address] [place] [phone] Kriss Wharton M.S., [employer] [address] [place] [phone] 08/15/2024 1:00 PM CDT Office Visit Department of Otorhinolaryngology in [address] [phone] Rafal Rankin M.D. [address] [place] [phone] 08/15/2024 2:30 PM CDT Ancillary Procedure Department of Ophthalmology in [address] [phone] Kandace Shankar M.D. [address] [place] [phone] 08/15/2024 3:00 PM CDT Comprehensive Visit Department of Ophthalmology in [place], [place] [address] [place] [phone] Peña Carver M.D. [address] [place] [phone] 08/15/2024 4:15 PM CDT Office Visit Department of Ophthalmology in [place], [place] [address] [place] [phone] Kandace Shankar M.D. [address] [place] [phone] 08/20/2024 3:00 PM CDT Appointment Division of Gastroenterology in [place], [place] [address] [place] [phone] Cristiane Palacio APRN, C.N.P., D.N.P. [address] [place] [phone] documented as of this encounter Procedures Procedure Name Priority Date/Time Associated Diagnosis Comments OPHTHALMOLOGY IMAGE EXAM Routine 05/17/2024 5:20 PM CDT documented in this encounter Results * Optical Coherence Tomography (OCT)-Ophthalmology Image Exam (05/17/2024 5:20 PM CDT) 05/17/2024 5:20 PM CDT Narrative IIMS - [...] on filedocumented in this encounter Care Teams Slip Injector And Applicator Relationship Specialty Start Date End Date Elsewhere, Pcp PCP - General Internal Medicine 02/26/24 documented as of this encounter
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
--- OUTSIDE RECORDS SUMMARY | 2024-07-25 22:41 | XMS_ITS | Encounter Summary ---
Author Organization [facility] Address [address] [place] [address] Care Team Providers Care Linen Tech Name Role Phone Elsewhere, Pcp Primary Care Provider Unavailabl e Encounter Details Date Type Department Care Team (Latest Contact Info) Description 05/17/2024 4:30 PM CDT Ancillary Procedure Department of Ophthalmology in [place], [place] [address] [place] [address] Kandace Shankar M.D. 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 I have a [facility] place to live 03/12/2024 Sex and [...] CDT Comprehensive Visit Department of Neurology in [place], [place] [address] [place] [address] PalacioCristiane Bragg APRN C.N.P., D.N.P. [address] [place] [phone] Kriss Wharton M.S., [facility] [address] [place] [phone] 08/15/2024 9:00 AM CDT Appointment Department of Radiology, [facility], in [place], [place] [address] [place] [phone] Cristiane Palacio APRN C.N.P., D.N.P. [address] [place] [phone] Kriss Wharton, MBree, [facility] [address] [place] [phone] 08/15/2024 9:45 AM CDT Clinical Support Department of Neurology in [address] [phone] Cristiane Palacio APRN, C.N.P., D.N.P. [address] [place] [phone] Kriss Wharton, M.SEdith, [facility] [address] [place] [phone] 08/15/2024 1:00 PM CDT Office Visit Department of Otorhinolaryngology in [place], [place] [address] [place] [phone] Rafal Rankin M.D. [address] [place] [phone] 08/15/2024 2:30 PM CDT Ancillary Procedure Department of Ophthalmology in [place], [place] [address] [place] [phone] TaKandace haque M.D. [address] [place] [phone] 08/15/2024 3:00 PM CDT Comprehensive Visit Department of Ophthalmology in [place], [place] [address] [place] [phone] Peña Carver M.D. [address] [place] [phone] 08/15/2024 4:15 PM CDT Office Visit Department of Ophthalmology in [place], [place] [address] [place] [phone] Kandace Shankar M.D. [address] [place] [phone] 08/20/2024 3:00 PM CDT Appointment Division of Gastroenterology in [place], [place] [address] [place] [phone] Cristiane Palacio, GRUPO, C.N.P., D.N.P. 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 Right Eye Reliability was good. Average RNFL was 93.00 microns. Ganglion cell layer was 45.00 microns. Left Eye Reliability was good. Average RNFL was 91.00 microns. Ganglion cell layer was 29.00 microns. Notes [facility] See note. Kandace Shankar M.D. 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
--- OUTSIDE RECORDS SUMMARY | 2024-07-25 22:41 | XMS_ITS | Encounter Summary ---
Author Organization [facility] Address [address] [place] [address] Care Team Providers Care Mixing Technician Name Role Phone Elsewhere, Pcp Primary Care Provider Unavailabl e Reason for Referral * Outpatient (Routine) - Closed Specialty Diagnoses / Procedures Referred By Contwaldemar t Referred To Contact Diagnoses Sialorrhea Procedures US Guidance Intraoperative Rafal Rankin M.D. [address] [place] [phone] [facility] Referral ID Status Reason Start Date Expiration Date Visits Re quested Visits Authorized [id number] Closed 06/19/2024 06/19/2025 1 1 Encounter Details Date Type Department Care Team (Latest Contact Info) Description 06/18/2024 Orders Only Department of Otorhinolaryngology in [place], [place] [address] [place] [phone] Luz Muir R.N. [address] [place] [address] [phone] Sialorrhea (Primary Dx) Social History Tobacco Use Types Packs/Day Years Used Date Smoking Tobacco: Former Cigarettes Q uit: 1985 Smokeless Tobacco: Never Alcohol Use Standard Drinks/Week Comments Not Currently 0 (1 standard drink = 0.6 oz pur e alcohol) [facility] Utilities Answer Date Recorded In [...] your living situation today? I have a [facility] place to live 03/12/2024 Sex [...] CDT Comprehensive Visit Department of Neurology in [place], [place] [address] [place] [phone] Cristiane Palacio APRN, C.N.P., D.N.P. [address] [place] [phone] Kriss Wharton, M.S., CCC-[employer] [address] [place] [phone] 08/15/2024 9:00 AM CDT Appointment Department of Radiology, [facility], in [place], [place] [address] [place] [phone] Cristiane Palacio APRN, C.N.P., D.N.P. [address] [place] [phone] Kriss Wharton, M.S., CCC-[employer] [address] [place] [address] [phone] 08/15/2024 9:45 AM CDT Clinical Support Department of Neurology in [address] [phone] Cristiane Palacio APRN, C.N.P., D.N.P. [address] [place] [phone] Kriss Wharton, M.S., CCC-[employer] [address] [place] [phone] 08/15/2024 1:00 PM CDT Office Visit Department of Otorhinolaryngology in [address] [place] [address] Rafal Rankin M.D. [address] [place] [address] [phone] 08/15/2024 2:30 PM CDT Ancillary Procedure Department of Ophthalmology in [place], [place] [address] [place] [phone] Kandace Shankar M.D. [address] [place] [phone] 08/15/2024 3:00 PM CDT Comprehensive Visit Department of Ophthalmology in [place], [place] [address] [place] [phone] Peña Carver M.D. [address] [place] [phone] 08/15/2024 4:15 PM CDT Office Visit Department of Ophthalmology in [place], [place] [address] [place] [phone] Kandace Shankar M.D. [address] [place] [phone] 08/20/2024 3:00 PM CDT Appointment Division of Gastroenterology in [place], [place] [address] [place] [phone] Cristiane Palacio, GRUPO, C.N.P., D.N.P. [address] [place] [phone] documented as of this encounter Results * US Guidance Intraoperative [...] Sialorrhea- Primary Sialorrhea documented in this encounter Care Teams Mixing Technician Relationship Specialty Start Date End Date Elsewhere, Pcp PCP - General Internal Medicine 02/26/24 documented as of this encounter
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
--- OUTSIDE RECORDS SUMMARY | 2024-07-25 22:41 | XMS_ITS | Encounter Summary ---
Author Organization [facility] Address [address] [place] [address] Care Team Providers Care High Man Name Role Phone Elsewhere, Pcp Primary Care Provider Unavailabl e Encounter Details Date Type Department Care Team (Latest Contact Info) Description 05/17/2024 3:00 PM CDT Ancillary Procedure Department of Ophthalmology in [place], [place] [address] [place] [address] Kandace Shankar M.D. [address] [place] [address] Traumatic Subarachnoid Hemorrhage Without Loss Of Consciousness Sequela (HCC) Social History Tobacco Use Types Packs/Day Years Used Date Smoking Tobacco: Former Cigarettes Q uit: 1985 Smokeless Tobacco: Never Alcohol Use Standard Drinks/Week Comments Not Currently 0 (1 standard drink = 0.6 oz pur e alcohol) [facility] Utilities Answer Date Recorded In the past 12 months has e [employer], gas, oil, or water [employer] threatened to shut off services in your [...] your living situation today? I have a [facility] place to live 03/12/2024 Sex [...] CDT Comprehensive Visit Department of Neurology in [place], [place] [address] [place] [address] PalacioCristiane Bragg APRN C.N.P., D.N.P. [address] [place] [phone] Kriss Wharton M.S., [facility] [address] [place] [phone] 08/15/2024 9:00 AM CDT Appointment Department of Radiology, [facility], in [place], [place] [address] [place] [phone] Cristiane Palacio APRN C.N.P., D.N.P. [address] [place] [phone] Kriss Wharton, MBree, [facility] [address] [place] [phone] 08/15/2024 9:45 AM CDT Clinical Support Department of Neurology in [address] [phone] Cristiane Palacio APRN, C.N.P., D.N.P. [address] [place] [phone] Kriss Wharton, M.SEdith, [facility] [address] [place] [phone] 08/15/2024 1:00 PM CDT Office Visit Department of Otorhinolaryngology in [place], [place] [address] [place] [phone] Rafal Rankin M.D. [address] [place] [phone] 08/15/2024 2:30 PM CDT Ancillary Procedure Department of Ophthalmology in [place], [place] [address] [place] [phone] TaKandace haque M.D. [address] [place] [phone] 08/15/2024 3:00 PM CDT Comprehensive Visit Department of Ophthalmology in [place], [place] [address] [place] [phone] Peña Carver M.D. [address] [place] [phone] 08/15/2024 4:15 PM CDT Office Visit Department of Ophthalmology in [place], [place] [address] [place] [phone] Kandace Shankar M.D. [address] [place] [phone] 08/20/2024 3:00 PM CDT Appointment Division of Gastroenterology in [place], [place] [address] [place] [phone] Cristiane Palacio, GRUPO, C.N.P., D.N.P. [address] [place] [phone] documented as of this encounter Procedures Procedure Name Priority Date/Time Associated Diagnosis Comments AUTOMATED VF - EXTENDED - OU - BOTH EYES Routine 05/17/2024 3:08 PM CDT Traumatic Subarachnoid Hemorrhage Without Loss Of Consciousness Sequela (HCC) documented in this encounter Results * Automated VF - Extended - OU [...] Kandace Shankar M.D. OPHTH VISUAL FIEL D OPHTHALMOLOGY IMAGING EXAM documented in this encounter Visit Diagnoses Diagnosis Traumatic Subarachnoid Hemorrhage Without Loss Of Consciousness Sequela (HCC) documented in this encounter Care Teams High Man Relationship Specialty Start Date End Date Elsewhere, Pcp PCP - General Internal Medicine 02/26/24 documented as of this encounter
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
--- OUTSIDE RECORDS SUMMARY | 2024-07-25 22:41 | XMS_ITS | Encounter Summary ---
Author Organization [facility] Address [address] [place] [address] Care Team Providers Care Tile Roofer Name Role Phone Elsewhere, Pcp Primary Care Provider Unavailabl e Reason for Referral * Outpatient (Routine) - Closed Specialty Diagnoses / Procedures Referred By Contwaldemar t Referred To Contact Otorhinolaryngology Rafal Rankin M.D. [address] [place] [phone] [facility] Referral ID Status Reason Start Date Expiration Date Visits Re quested Visits Authorized [id number] Closed 06/17/2024 12/17/2025 1 1 Encounter Details Date Type Department Care Team (Late st Contact Info) Description 06/17/2024 Orders Only Department of Otorhinolaryngology in [place], [place] [address] [place] [phone] Rafal Rankin M.D. [address] [place] [phone] Social History Tobacco Use Types Packs/Day Years Used Date Smoking Tobacco: Former Cigarettes Q uit: 1985 Smokeless Tobacco: Never Alcohol Use Standard Drinks/Week Comments Not Currently 0 (1 standard drink = 0.6 oz pur e alcohol) [facility] Utilities Answer Date Recorded In the past [...] your living situation today? I have a [facility] place to live 03/12/2024 Sex and [...] Comprehensive Visit Department of Neurology in [address] [phone] Cristiane Palacio APRN, C.N.P., D.N.P. [address] [place] [phone] Kriss Wharton M.S., CCC-PRODUCTION ZONE LEADER [address] [place] [phone] 08/15/2024 9:00 AM CDT Appointment Department of Radiology, [facility], in [place], [place] [address] [place] [phone] Cristiane Palacio APRN, C.N.P., D.N.P. [address] [place] [phone] Kriss Wharton MBree, CCC-PRODUCTION ZONE LEADER [address] [place] [address] [phone] 08/15/2024 9:45 AM CDT Clinical Support Department of Neurology in [address] [phone] Cristiane Palacio APRN, C.N.P., D.N.P. [address] [place] [phone] Kriss Wharton M.S., CCC-PRODUCTION ZONE LEADER [address] [place] [address] [phone] 08/15/2024 1:00 PM CDT Office Visit Department of Otorhinolaryngology in [place], [place] [address] [place] [phone] Rafal Rankin M.D. [address] [place] [phone] 08/15/2024 2:30 PM CDT Ancillary Procedure Department of Ophthalmology in [place], [place] [address] [place] [phone] Kandace Shankar M.D. [address] [place] [phone] 08/15/2024 3:00 PM CDT Comprehensive Visit Department of Ophthalmology in [place], [place] [address] [place] [phone] Peña Carver M.D. [address] [place] [phone] 08/15/2024 4:15 PM CDT Office Visit Department of Ophthalmology in [place], [place] [address] [place] [phone] Kandace Shankar M.D. [address] [place] [phone] 08/20/2024 3:00 PM CDT Appointment Division of Gastroenterology in [place], [place] [address] [place] [address] [phone] Cristiane Palacio APRN, C.N.P., D.N.P. [address] [place] [phone] Scheduled Referrals Name Type Priority Associated Diagnoses Order Schedule Otorhinolaryngology office visit (clinic) Outpatient Referral Routine Expected: 06/17/2024, Expires: 09/17/2025 documented as of this encounter Visit Diagnoses Not on filedocumented in this encounter Care Teams Tile Roofer Relationship Specialty Start Date End Date Elsewhere, Pcp PCP - General Internal Medicine 02/26/24 documented as of this encounter
--- OUTSIDE RECORDS SUMMARY | 2024-07-25 22:41 | XMS_ITS | Encounter Summary ---
Author Organization [facility] Address [address] [place] [address] Care Team Providers Care Demonstrator Knitting Name Role Phone Elsewhere, Pcp Primary Care Provider Unavailabl e Encounter Details Date Type Department Care Team (Latest Contact Info) Description 06/18/2024 Clinical Communication Department of Otorhinolaryngology in [place], [place] [address] [place] [address] Rafal Rankin M.D. [address] [place] [phone] Social History Tobacco Use Types Packs/Day Years Used Date Smoking Tobacco: Former Cigarettes Q uit: 1985 Smokeless Tobacco: Never Alcohol Use Standard Drinks/Week Comments Not Currently 0 (1 standard drink = 0.6 oz pur e alcohol) [facility] Utilities Answer Date Recorded In the past [...] your living situation today? I have a [facility] place to live 03/12/2024 Sex and [...] CDT Comprehensive Visit Department of Neurology in [place], [place] [address] [place] [phone] Cristiane Palacio, GRUPO, C.N.P., D.N.P. [address] [place] [phone] Kriss Wharton M.S., [facility] [address] [place] [phone] 08/15/2024 9:00 AM CDT Appointment Department of Radiology, [facility], in [place], [place] [address] [place] [phone] Cristiane Palacio APRN, C.N.P., D.N.P. [address] [place] [phone] Kriss Wharton M.S., [facility] [address] [place] [phone] 08/15/2024 9:45 AM CDT Clinical Support Department of Neurology in [place], [place] [address] [place] [phone] Cristiane Palacio APRN, C.N.P., D.N.P. [address] [place] [phone] Kriss Wharton M.S., [facility] [address] [place] [address] [phone] 08/15/2024 1:00 PM CDT Office Visit Department of Otorhinolaryngology in [place], [place] [address] [place] [phone] Rafal Rankin M.D. [address] [place] [phone] 08/15/2024 2:30 PM CDT Ancillary Procedure Department of Ophthalmology in [place], [place] [address] [place] [phone] Kandace Shankar M.D. [address] [place] [phone] 08/15/2024 3:00 PM CDT Comprehensive Visit Department of Ophthalmology in [place], [place] [address] [place] [phone] Peña Carver M.D. [address] [place] [address] [phone] 08/15/2024 4:15 PM CDT Office Visit Department of Ophthalmology in [place], [place] [address] [place] [phone] Kandace Shankar M.D. [address] [place] [address] [phone] 08/20/2024 3:00 PM CDT Appointment Division of Gastroenterology in [place], [place] [address] [place] [phone] Cristiane Palacio, GRUPO, C.N.P., D.N.P. [address] [place] [address] [phone] documented as of this encounter Visit Diagnoses Not on filedocumented in this encounter Care Teams Demonstrator Knitting Relationship Specialty Start Date End Date Elsewhere, Pcp PCP - General Internal Medicine 02/26/24 documented as of this encounter
--- OUTSIDE RECORDS SUMMARY | 2024-07-25 22:42 | XMS_ITS | Encounter Summary ---
Author Organization [facility] Address [address] [place] [address] Care Team Providers Care Food Services Coordinator Name Role Phone Elsewhere, Pcp Primary Care Provider Unavailabl e Reason for Visit * Reason Onset Date Comments Pre-visit Testing Orders 03/29/2024 Encounter Details Date Type Department Care Team (Latest Contact Info) Description 03/29/2024 Clinical Communication Department of Neurology in [place], [place] [address] [place] [phone] Kandace Shankar M.D. [address] [place] [phone] Pre-visit Testing Orders Social History Tobacco Use Types Packs/Day Years Used Date Smoking Tobacco: Former Cigarettes Smokeless Tobacco: Never Alcohol Use Standard Drinks/Week Comments Not Currently 0 (1 standard drink = 0.6 oz pur e alcohol) [facility] Utilities Answer Date Recorded In the past [...] your living situation today? I have a [facility] place to live 03/12/2024 Sex and Gender Information Value Date Recorded Sex Assigned at Male 03/12/2024 1:38 PM CDT Gender Identity Male 03/12/2024 1:38 PM CDT Sexual Orientation Straight 03/12/2024 1: 38 PM CDT documented as of this encounter Miscellaneous Notes * Telephone Encounter - Thania Palomino C.O.A. - 04/01/2024 7:44 AM CDT Pretesting needed is DOMINGA, Histology Supervisor exam and OCT Cirrus. Orders placed for testing. Thank you, Fabby documented in this encounter Plan of Treatment Upcoming Encounters Date Type Department Care Team (Latest Contact Info) Description 08/15/2024 8:00 AM CDT Comprehensive Visit Department of Neurology in [address] [phone] Cristiane Palacio APRN C.N.P., D.N.P. [address] [place] [phone] Kriss Wharton, M.S., CCC-CHYRON OPERATOR [address] [place] [phone] 08/15/2024 9:00 AM CDT Appointment Department of Radiology, [facility], in [place], [place] [address] [place] [phone] Cristiane Palacio APRN C.N.P., D.N.P. [address] [place] [phone] Kriss Wharton, M.S., CCC-CHYRON OPERATOR [address] [place] [phone] 08/15/2024 9:45 AM CDT Clinical Support Department of Neurology in [address] [phone] Cristiane Palacio APRN, C.N.P., D.N.P. [address] [place] [phone] Kriss Wharton M.S., CCC-CHYRON OPERATOR [address] [place] [address] [phone] 08/15/2024 1:00 PM CDT Office Visit Department of Otorhinolaryngology in [place], [place] [address] [place] [phone] Rafal Rankin M.D. [address] [place] [phone] 08/15/2024 2:30 PM CDT Ancillary Procedure Department of Ophthalmology in [place], [place] [address] [place] [phone] Kandace Shankar M.D. [address] [place] [phone] 08/15/2024 3:00 PM CDT Comprehensive Visit Department of Ophthalmology in [place], [place] [address] [place] [phone] Peña Carver M.D. [address] [place] [phone] 08/15/2024 4:15 PM CDT Office Visit Department of Ophthalmology in [place], [place] [address] [place] [phone] Kandace Shankar M.D. [address] [place] [phone] 08/20/2024 3:00 PM CDT Appointment Division of Gastroenterology in [place], [place] [address] [place] [phone] Cristiane Palacio, GRUPO, C.N.P., D.N.P. [address] [place] [phone] documented as of this encounter Results * Optical Coherence Tomography [...] layer was 29.00 microns. Notes [facility] See note. Kandace Shankar M.D. OPHTH TOMOGRAPHY Performing Organization Address [facility] de Phone Number OPHTHALMOLOGY IMAGING EXAM * Automated VF - Extended - OU [...] decibels. Notes See note. Kandace Shankar M.D. OPH VISUAL FIEL D Performing Organization Address [facility] de Phone Number OPHTHALMOLOGY IMAGING EXAM documented in this encounter Visit Diagnoses Diagnosis Traumatic Subarachnoid Hemorrhage Without Loss Of Consciousness Sequela (HCC)- Primary Traumatic Subarachnoid Hemorrhage Without Loss Of Consciousness Sequela (HCC) Traumatic Subarachnoid Hemorrhage Without Loss Of Consciousness Sequela (HCC) documented in this encounter Care Teams Food Services Coordinator Relationship Specialty Start Date End Date Elsewhere, Pcp PCP - General Internal Medicine 02/26/24 documented as of this encounter
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
--- OUTSIDE RECORDS SUMMARY | 2024-07-25 22:42 | XMS_ITS | Encounter Summary ---
Author Organization [facility] Address [address] [place] [address] Care Team Providers Care Oracle Application Consultant Name Role Phone Elsewhere, Pcp Primary Care Provider Unavailabl e Encounter Details Date Type Department Care Team (Latest Contact Info) Description 05/03/2024 4:17 PM CDT - 05/03/2024 11:59 PM CDT Hospital Encounter Department of Laboratory Medicine and Pathology, [facility] in [place], [place] [address] [place] [address] Stan Hernandez M.D. Dysphagia; Diarrhea; Heartburn Discharge Disposition: Home or Self Care Social History Tobacco Use Types Packs/Day Years Used Date Smoking Tobacco: Former Cigarettes Smokeless Tobacco: Never Alcohol Use Standard Drinks/Week Comments Not Currently 0 (1 standard drink = 0.6 oz pur e alcohol) [facility] Utilities Answer Date Recorded In [...] your living situation today? I have a [facility] place to live 03/12/2024 Sex and Gender Information Value Date Recorded Sex Assigned at Male 03/12/2024 1:38 PM CDT Gender Identity Male 03/12/2024 1:38 PM CDT Sexual Orientation Straight 03/12/2024 1: 38 PM CDT documented as of this encounter Medications at Time of Discharge Medication Sig Dispensed Refills Start Date End Date finasteride (PROSCAR) 5 mg tablet Administer 1 tablet via gastric tube daily. 05/13/2023 fluticasone propionate (FLONASE) 50 mcg/actuation nasal spray Administer 1 spray into each nostril 2 (two) times a day. tadalafiL (CIALIS) 5 mg tablet Administer 5 [...] 1 each daily. durable medical equipment (DME). [employer] feed bag Ref# [id number]. Change bag every 24 hours. 03/27/2024 UNABLE TO FIND 1 each as needed (5 times daily for flushes as needed.). durable medical equipment (DME) 12ml enteral syringe [employer] with ENFIT CONNECTOR. 03/19/2024 escitalopram (LEXAPRO) 5 mg/5 mL solution Administer 10 mg via gastric tube every morning. 02/02/2024 07/18/2024 esomeprazole (NexIUM) 40 mg packet Take 40 mg by mouth 2 (two) times a day. 05/07/2024 promethazine-codeine (PHENERGAN with CODEINE) 6.25-10 mg/5 mL syrup Administer 5 mL via small bowel tube at bedtime. 01/20/2024 05/15/2024 documented as of this encounter Plan of Treatment Upcoming Encounters Date Type Department Care Team (Latest Contact Info) Description 08/15/2024 8:00 AM CDT Comprehensive Visit Department of Neurology in [place], [place] [address] [place] [phone] Cristiane Palacio, GRUPO, C.N.P., D.N.P. [address] [place] [phone] Kriss Wharton M.S., [facility] [address] [place] [phone] 08/15/2024 9:00 AM CDT Appointment Department of Radiology, [facility], in [place], [place] [address] [place] [phone] Cristiane Palacio APRN C.N.P., D.N.P. [address] [place] [phone] Kriss Wharton M.S., [facility] [address] [place] [phone] 08/15/2024 9:45 AM CDT Clinical Support Department of Neurology in [place], [place] [address] [place] [phone] Cristiane Palacio APRN, C.N.P., D.N.P. [address] [place] [phone] Kriss Wharton M.S., [facility] [address] [place] [phone] 08/15/2024 1:00 PM CDT Office Visit Department of Otorhinolaryngology in [address] [phone] Rafal Rankin M.D. [address] [place] [phone] 08/15/2024 2:30 PM CDT Ancillary Procedure Department of Ophthalmology in [address] [phone] Kandace Shankar M.D. [address] [place] [phone] 08/15/2024 3:00 PM CDT Comprehensive Visit Department of Ophthalmology in [address] [phone] Peña Carver M.D. [address] [place] [phone] 08/15/2024 4:15 PM CDT Office Visit Department of Ophthalmology in [place], [place] [address] [place] [phone] Kandace Shankar M.D. [address] [place] [phone] 08/20/2024 3:00 PM CDT Appointment Division of Gastroenterology in [place], [place] [address] [place] [phone] Cristiane Palacio, GRUPO, C.N.P., D.N.P. [address] [place] [phone] documented as of this encounter Procedures Procedure Name Priority Date/Time Associated Diagnosis Comments C. DIFFICILE TOXIN PCR, F Routine 05/09/2024 8:50 AM CDT Dysphagia Diarrhea Heartburn documented in this encounter Results * Clostridioides (Clostridium) Difficile Toxin, Molecular Detection, PCR, Feces (05/09/2024 8:50 AM CDT) C. difficile Toxin, F Negative Negative 05/09/2024 12:00 PM CDT DTL Stool (Stool) 05/09/2024 8:5 0 AM CDT 05/09/2024 9:40 AM CDT Stan Izaguirre M.D. LAB MICROBIOLOG Y - GENERAL ORDERABLES [facility] [address] [place] [address], [place] DTL [facility] 200 [place] [address] documented in this encounter Visit Diagnoses Diagnosis Dysphagia Diarrhea Heartburn documented in this encounter Care Teams Oracle Application Consultant Relationship Specialty Start Date End Date Elsewhere, Pcp PCP - General Internal Medicine 02/26/24 documented as of this encounter
--- OUTSIDE RECORDS SUMMARY | 2024-07-25 22:42 | XMS_ITS | Encounter Summary ---
Author Organization [facility] Address [address] [place] [address] Care Team Providers Care Flight Superintendent Name Role Phone Elsewhere, Pcp Primary Care Provider Unavailabl e Encounter Details Date Type Department Care Team (Late st Contact Info) Description 03/19/2024 Clinical Communication Department of Neurology in [place], [place] [address] [place] [phone] Bhavani Betancur M.S., CCC-DIALYSIS REGISTERED NURSE, [employer] [address] [place] [phone] Social History Tobacco Use Types Packs/Day Years Used Date Smoking Tobacco: Former Cigarettes Smokeless Tobacco: Never Alcohol Use Standard Drinks/Week Comments Not Currently 0 (1 standard drink = 0.6 oz pur e alcohol) [facility] Utilities Answer Date Recorded In the [...] your living situation today? I have a [facility] place to live 03/12/2024 [...] CDT Comprehensive Visit Department of Neurology in [place], [place] 200 [place] [address] Cristiane Palacio, GRUPO, C.N.P., D.N.P. 200 [place] [phone] Kriss Wharton M.S., [facility] [address] [place] [phone] 08/15/2024 9:00 AM CDT Appointment Department of Radiology, [facility], in [place], [place] [address] [place] [phone] Cristiane Palacio APRN, C.N.P., D.N.P. [address] [place] [phone] Kriss Wharton M.S., [facility] [address] [place] [phone] 08/15/2024 9:45 AM CDT Clinical Support Department of Neurology in [place], [place] [address] [place] [phone] Cristiane Palacio APRN, C.N.P., D.N.P. [address] [place] [phone] Kriss Wharton M.S., [facility] [address] [place] [phone] 08/15/2024 1:00 PM CDT Office Visit Department of Otorhinolaryngology in [place], [place] [address] [place] [phone] Rafal Rankin M.D. [address] [place] [phone] 08/15/2024 2:30 PM CDT Ancillary Procedure Department of Ophthalmology in [address] [phone] Kandace Shankar M.D. [address] [place] [phone] 08/15/2024 3:00 PM CDT Comprehensive Visit Department of Ophthalmology in [place], [place] [address] [place] [phone] Peña Carver M.D. [address] [place] [phone] 08/15/2024 4:15 PM CDT Office Visit Department of Ophthalmology in [place], [place] [address] [place] [phone] Kandace Shankar M.D. [address] [place] [phone] 08/20/2024 3:00 PM CDT Appointment Division of Gastroenterology in [place], [place] [address] [place] [phone] Cristiane Palacio, GRUPO, C.N.P., D.N.P. [address] [place] [phone] documented as of this encounter Visit Diagnoses Not on filedocumented in this encounter Care Teams Flight Superintendent Relationship Specialty Start Date End Date Elsewhere, Pcp PCP - General Internal Medicine 02/26/24 documented as of this encounter
--- OUTSIDE RECORDS SUMMARY | 2024-07-25 22:42 | XMS_ITS | Encounter Summary ---
Author Organization [facility] Address [address] [place] [address] Care Team Providers Care Hospital Carrier Name Role Phone Elsewhere, Pcp Primary Care Provider Unavailabl e Encounter Details Date Type Department Care Team (Late st Contact Info) Description 05/07/2024 Orders Only Division of Gastroenterology in [place], [place] [address] [place] [address] Stan Hernandez M.D. Social History Tobacco Use Types Packs/Day Years Used Date Smoking Tobacco: Former Cigarettes Smokeless Tobacco: Never Alcohol Use Standard Drinks/Week Comments Not Currently 0 (1 standard drink = 0.6 oz pur e alcohol) [facility] Utilities Answer Date Recorded In the past 12 months has e [employer], gas, oil, or water [employer] threatened to shut off services in your [...] CDT Comprehensive Visit Department of Neurology in [place], [place] [address] [place] [phone] Cristiane Palacio, GRUPO, C.N.P., D.N.P. [address] [place] [phone] Kriss Wharton M.S., [facility] [address] [place] [phone] 08/15/2024 9:00 AM CDT Appointment Department of Radiology, [facility], in [place], [place] [address] [place] [phone] Cristiane Palacio APRN, C.N.P., D.N.P. [address] [place] [phone] Kriss Wharton M.S., [facility] [address] [place] [phone] 08/15/2024 9:45 AM CDT Clinical Support Department of Neurology in [address] [phone] Cristiane Palacio APRN, C.N.P., D.N.P. [address] [place] [phone] Kriss Wharton M.S., [facility] [address] [place] [phone] 08/15/2024 1:00 PM CDT Office Visit Department of Otorhinolaryngology in [address] [phone] Rafal Rankin M.D. [address] [place] [phone] 08/15/2024 2:30 PM CDT Ancillary Procedure Department of Ophthalmology in [place], [place] [address] [place] [phone] Kandace Shankar M.D. [address] [place] [phone] 08/15/2024 3:00 PM CDT Comprehensive Visit Department of Ophthalmology in [place], [place] [address] [place] [phone] Peña Carver M.D. [address] [place] [phone] 08/15/2024 4:15 PM CDT Office Visit Department of Ophthalmology in [place], [place] [address] [place] [phone] Kandace Shankar M.D. [address] [place] [phone] 08/20/2024 3:00 PM CDT Appointment Division of Gastroenterology in [place], [place] [address] [place] [phone] Cristiane Palacio, GRUPO, C.N.P., D.N.P. [address] [place] [phone] documented as of this encounter Visit Diagnoses Not on filedocumented in this encounter Care Teams Hospital Carrier Relationship Specialty Start Date End Date Elsewhere, Pcp PCP - General Internal Medicine 02/26/24 documented as of this encounter
--- OUTSIDE RECORDS SUMMARY | 2024-07-25 22:42 | XMS_ITS | Encounter Summary ---
Author Organization [facility] Address [address] [place] [id number] Care Team Providers Care Coupling Machine Operator Name Role Phone Elsewhere, Pcp Primary Care Provider Unavailabl e Reason for Visit * Reason Onset Date Comments Blood Pressure 05/15/2024 Encounter Details Date Type Department Care Team (Latest Contact Info) Description 05/15/2024 10:30 AM CDT Clinical Communication Virtual Review in [place], [place] [address] [place] [phone] Blood Pressure Social History Tobacco Use Types Packs/Day Years Used Date Smoking Tobacco: Former Cigarettes Q uit: 1985 Smokeless Tobacco: Never Tobacco Cessation:Counseling Given: Not Answered Alcohol Use Standard Drinks/Week Comments Not Currently 0 (1 standard drink = 0.6 oz pur e alcohol) [facility] Utilities Answer Date Recorded In the [...] CDT Comprehensive Visit Department of Neurology in [place], [place] 200 [place] [phone] Cristiane Palacio, GRUPO, C.N.P., D.N.P. 200 [place] [address] Kriss Wharton M.S., [facility] [employer] [address] [place] [phone] 08/15/2024 9:00 AM CDT Appointment Department of Radiology, [facility], in [place], [place] [address] [place] [phone] Cristiane Palacio APRN, C.N.P., D.N.P. [address] [place] [phone] Kriss Wharton M.S., [facility] [address] [place] [phone] 08/15/2024 9:45 AM CDT Clinical Support Department of Neurology in [place], [place] [address] [place] [phone] Cristiane Palacio APRN, C.N.P., D.N.P. [address] [place] [phone] Kriss Wharton M.S., [facility] [address] [place] [phone] 08/15/2024 1:00 PM CDT Office Visit Department of Otorhinolaryngology in [place], [place] [address] [place] [phone] Rafal Rankin M.D. [address] [place] [phone] 08/15/2024 2:30 PM CDT Ancillary Procedure Department of Ophthalmology in [place], [place] [address] [place] [phone] Kandace Shankar M.D. [address] [place] [phone] 08/15/2024 3:00 PM CDT Comprehensive Visit Department of Ophthalmology in [place], [place] [address] [place] [phone] Peña Carver M.D. [address] [place] [phone] 08/15/2024 4:15 PM CDT Office Visit Department of Ophthalmology in [place], [place] [address] [place] [phone] Kandace Shankar M.D. [address] [place] [phone] 08/20/2024 3:00 PM CDT Appointment Division of Gastroenterology in [place], [place] [address] [place] [phone] Cristiane Palacio, GRUPO, C.N.P., D.N.P. [address] [place] [phone] documented as of this encounter Visit Diagnoses Not on filedocumented in this encounter Care Teams Coupling Machine Operator Relationship Specialty Start Date End Date Elsewhere, Pcp PCP - General Internal Medicine 02/26/24 documented as of this encounter
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
--- OUTSIDE RECORDS SUMMARY | 2024-07-25 22:42 | XMS_ITS | Encounter Summary ---
Author Organization [facility] Address [address] [place] [phone] Care Team Providers Care Certified Physician'S Assistant Name Role Phone Elsewhere, Pcp Primary Care Provider Unavailabl e Reason for Visit * Reason Onset Date Comments Previsit Preparation 05/02/2024 DEBORAH DD Encounter Details Date Type Department Care Team (Latest Contact Info) Description 05/02/2024 9:00 AM CDT Clinical Communication Virtual Review in [place], [place] [address] [place] [phone] Previsit Preparation (DEBORAH DD) Social History Tobacco Use Types Packs/Day Years Used Date Smoking Tobacco: Former Cigarettes Smokeless Tobacco: Never Tobacco Cessation:Counseling Given: Not Answered Alcohol Use Standard Drinks/Week Comments Not Currently 0 (1 standard drink = 0.6 oz pur e alcohol) [facility] Utilities Answer Date Recorded In the [...] your living situation today? I have a [facility] place to live 03/12/2024 Sex and Gender Information Value Date Recorded Sex Assigned at Male 03/12/2024 1:38 PM CDT Gender Identity Male 03/12/2024 1:38 PM CDT Sexual Orientation Straight 03/12/2024 1: 38 PM CDT documented as of this encounter Plan of Treatment Upcoming Encounters Date Type Department Care Team (Latest Contact Info) Description 08/15/2024 8:00 AM CDT Comprehensive Visit Department of Neurology in [place], [place] [address] [place] [phone] Cristiane Palacio, GRUPO, C.N.P., D.N.P. [address] [place] [phone] Kriss hWarton M.S., [facility] [address] [place] [phone] 08/15/2024 9:00 AM CDT Appointment Department of Radiology, [facility], in [place], [place] [address] [place] [phone] Cristiane Palacio APRN C.N.P., D.N.P. [address] [place] [phone] Kriss Wharton M.S., [facility] [address] [place] [phone] 08/15/2024 9:45 AM CDT Clinical Support Department of Neurology in [place], [place] [address] [place] [phone] Cristiane Palacio APRN, C.N.P., D.N.P. [address] [place] [phone] Kriss Whartno M.S., [facility] [address] [place] [phone] 08/15/2024 1:00 PM CDT Office Visit Department of Otorhinolaryngology in [place], [place] [address] [place] [phone] Rafal Rankin M.D. [address] [place] [phone] 08/15/2024 2:30 PM CDT Ancillary Procedure Department of Ophthalmology in [address] [phone] Kandace Shankar M.D. [address] [place] [phone] 08/15/2024 3:00 PM CDT Comprehensive Visit Department of Ophthalmology in [place], [place] [address] [place] [phone] Peña Carver M.D. [address] [place] [phone] 08/15/2024 4:15 PM CDT Office Visit Department of Ophthalmology in [place], [place] [address] [place] [phone] Kandace Shankar M.D. [address] [place] [phone] 08/20/2024 3:00 PM CDT Appointment Division of Gastroenterology in [place], [place] [address] [place] [phone] Cristiane Palacio, GRUPO, C.N.P., D.N.P. [address] [place] [phone] documented as of this encounter Visit Diagnoses Not on filedocumented in this encounter Care Teams Certified Physician'S Assistant Relationship Specialty Start Date End Date Elsewhere, Pcp PCP - General Internal Medicine 02/26/24 documented as of this encounter
--- OUTSIDE RECORDS SUMMARY | 2024-07-25 22:42 | XMS_ITS | Encounter Summary ---
Author Organization [facility] Address [address] [place] [address] Care Team Providers Care Phone Triage Specialist Name Role Phone Elsewhere, Pcp Primary Care Provider Unavailabl e Encounter Details Date Type Department Care Team (Latest Contact Info) Description 03/29/2024 Clinical Communication Department of Ophthalmology in [place], [place] [address] [place] [phone] Provider, Unknown Social History Tobacco Use Types Packs/Day Years Used Date Smoking Tobacco: Former Cigarettes Smokeless Tobacco: Never Alcohol Use Standard Drinks/Week Comments Not Currently 0 (1 standard drink = 0.6 oz pur e alcohol) [facility] Utilities Answer Date Recorded In the past 12 months has [facility] [employer], gas, oil, or water [employer] threatened to shut off services in your [...] your living situation today? I have a [facility] place to live 03/12/2024 Sex and [...] CDT Comprehensive Visit Department of Neurology in [place], [place] 200 [place] [phone] Cristiane Palacio, GRUPO, C.N.P., D.N.P. [address] [place] [phone] Kriss Wharton M.S., CCC-SENIOR SYSTEMS ADMINISTRATOR [address] [place] [phone] 08/15/2024 9:00 AM CDT Appointment Department of Radiology, [facility], in [place], [place] [address] [place] [phone] Cristiane Palacio APRN, C.N.PEdith, D.N.P. [address] [place] [phone] Kriss Wharton M.S., [facility] [address] [place] [phone] 08/15/2024 9:45 AM CDT Clinical Support Department of Neurology in [address] [phone] Cristiane Palacio APRN, C.N.PEdith, D.N.P. [address] [place] [phone] Kriss Wharton MEdithSEdith, [facility] [address] [place] [phone] 08/15/2024 1:00 PM CDT Office Visit Department of Otorhinolaryngology in [address] [phone] Rafal Rankin M.D. [address] [place] [phone] 08/15/2024 2:30 PM CDT Ancillary Procedure Department of Ophthalmology in [place], [place] [address] [place] [phone] Kandace Shankar M.D. [address] [place] [phone] 08/15/2024 3:00 PM CDT Comprehensive Visit Department of Ophthalmology in [address] [phone] Peña Carver M.D. [address] [place] [phone] 08/15/2024 4:15 PM CDT Office Visit Department of Ophthalmology in [place], [place] [address] [place] [phone] Kandace Shankar M.D. [address] [place] [phone] 08/20/2024 3:00 PM CDT Appointment Division of Gastroenterology in [place], [place] [address] [place] [phone] Cristiane Palacio, GRUPO, C.N.P., D.N.P. [address] [place] [phone] documented as of this encounter Visit Diagnoses Not on filedocumented in this encounter Care Teams Phone Triage Specialist Relationship Specialty Start Date End Date Elsewhere, Pcp PCP - General Internal Medicine 02/26/24 documented as of this encounter
[2024-07-25 22:43] LABS: Basophils Percent Auto 0.2 % (0.0-3.0); Eosinophils Percent Auto 0.4 % (0.0-7.0); Hematocrit 37.2 % (37.0-53.0); Hemoglobin* 12.1 gm/dL (13.5-17.5); Immature Granulocytes Pct Auto 0.5 %; Lymphocytes Percent Auto 5.6 % (20-44); Mean Corpuscular HGB Conc 33 gm/dL (32-36); Mean Corpuscular Hemoglobin 31 pg (26-34); Mean Corpuscular Volume 97 fL (80-100); Monocytes Percent Auto 5.2 % (0.0-11.0); Neutrophils Percent Auto 88.1 % (42.0-72.0); Platelet Count* 127 K/uL (140-440); RDW Coefficient of Variation % 12.6 % (11.5-15.5); Red Blood Count 3.85 m/uL (4.30-5.90); White Blood Count* 11.35 K/uL (4.50-11.00)
[2024-07-25] MEDS: ONDANSETRON 2 MG/ML inj 4 MG IVP (22:52)
[2024-07-25] MEDS: 0.9 % SODIUM CHLORIDE 1000 ml 1,000 ML IV (22:52)
[2024-07-25] MEDS: IPRAT-ALBUT 0.5-2.5 MG/3 ML NEB 1 NEB IH (22:53)
[2024-07-25 22:55] LABS: Slide Review Reflex No
[2024-07-25 22:57] LABS: Chloride* 100 mmol/L (96-114); Potassium* 4.1 mmol/L (3.6-5.1); Sodium* 136 mmol/L (135-149)
[2024-07-25 23:00] LABS: Anion Gap 6 mEq/L (7-15); Blood Urea Nitrogen* 21 mg/dL (7-30); Carbon Dioxide* 30 mmol/L (20-32); Glucose* 127 mg/dL (60-115)
[2024-07-25 23:01] LABS: Magnesium* 2.1 mg/dL (1.5-2.6)
[2024-07-25 23:42] LABS: Creatinine* 0.6 mg/dL (0.5-1.5); Est. Creatinine Clearance* 70.31; Estimated Glomerular Filt Rate 105 ml/min
== END 2024-07-26 01:06 | disposition home or self-care (01) ==
PROVIDERS: Emergency Provider Family Medicine; PCP Family Medicine
DX: J69.0 Pneumonitis due to inhalation of food and vomit (principal)
CPT/HCPCS: 36415; 71046; 74018; 80048; 83735; 85025; 96374; 99284; J2405; J7030

== ENCOUNTER 2024-08-09 01:36 | Outpatient (CLI) | payer MEDICARE, BC, SELFPAY ==
--- OUTSIDE RECORDS SUMMARY | 2024-08-10 05:56 | XMS_ITS | Encounter Summary ---
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, sequela Recurrent aspiration pneumonia (H) Sandy Matta MD [address] [place] [address] Guy Yost MD [address] [place] [address] Referral ID Status Reason Start Date Expiration Date V isits Requested Visits Authorized [id number] Pending Review 01/23/2024 01/22/2025 1 1 Encounter Details Date Type Department Care Team (Late st Contact Info) Description 07/16/2024 2:45 PM CDT Office Visit [facility] [address] [address] Sandy Matta MD [address] [place] [address] Elaina Cervantes MD [address] [place] [address] Dysphonia (Primary Dx); Oropharyngeal dysphagia; Trauma to [...] or concerns after your appointment, please call [phone]. Press option #1 for scheduling related needs. Press option #3 for Nurse advice. 2. Dr. Cervantes has recommended the following: - Z-pack and medrol dose pack for breathing difficulties 3. Plan is to return to clinic as needed How to Contact Us: Send a [employer] message to your provider. Our team will respond to you via [employer]. Occasionally, wewill need to call you to get further information. For urgent matters (Monday-Monday, 8:00 AM-3:30 PM), call the ENT Clinic: [phone] and speak with a call center forensics team director - they will route your call appropriately. If you'd like to speak directly with a nurse, please call [phone]. We do our best to check voicemail frequently throughout the day, and will work to call you back within 1-2 days. For urgent matters, please use the general clinic phone numbers listed above. Ivanna Cary [phone] [facility] - Otolaryngology documented in this encounter Progress Notes * Elaina Cervantes MD - 07/16/2024 3:30 PM CDT Images from the original note were not included. [facility] Voice Clinic at the [facility] Otolaryngology Clinic Patient: Vinh Guillen [...] in the past, recommend going back to [place] to compare exams and decide how they want to proceed Plan - return to [place] to compare exams - abx/steroids for any breathing worsening RETURN VISIT: pending [place] discussion Referring Provider PCP: Sandy Matta Referring Physician: [place] [address] Reason for Consultation Dysphagia Dyspnea History HISTORY [...] sodium chloride (OCEAN) 0.65 % nasal spray, [place] 1-2 sprays in nostril, Disp: , Rfl: [...] Resource Strain: Low Risk (01/26/2024) Received from [facility], [facility] Financial Resource Strain Difficulty of Paying Living Expenses: 3 Difficulty of Paying Living Expenses: Not on file Food Insecurity: No Food Insecurity (03/12/2024) Received from [facility] Hunger Vital Sign Worried About Running Out of Food in the Last Year: Never true Ran Out of Food in the Last Year: Never true Transportation Needs: No Transportation Needs (03/12/2024) Received from [facility] PRAPARE - Transportation Lack of Transportation (Medical): No Lack of Transportation (Non-Medical): No Physical Activity: Inactive (03/12/2024) Received from [facility] Exercise Vital Sign Days of Exercise per Week: 0 days Minutes of Exercise per Session: 0 min Stress: Not on file Social Connections: Socially Integrated (01/26/2024) Received from [facility] Frequency of Communication with Friends and Family: 0 Interpersonal Safety: Not At Risk (02/27/2024) Received from [facility] Humiliation, Afraid, Rape, and Kick questionnaire Fear of Current or Ex-Partner: No Emotionally Abused: No Physically Abused: No Sexually Abused: No Housing Stability: Low Risk (03/12/2024) Received from [facility] Housing Stability What is your living situation [...] limits and noncontributory. Procedures Flexible laryngoscopy (CPT 71300) Pre-procedure diagnosis: dysphonia Post-procedure diagnosis: same as [...] hesitate to contact me. Elaina Cervantes MD Want Ad Receiver Laryngology [facility] Department of Otolaryngology - Head and Neck Surgery [facility] [address] [place] [address] Appointment line: [phone] [email or web address] documented in this encounter Plan of Treatment Not on file documented as of this encounter Procedures Procedure Name Priority Date/Time Associated Diagnosis Comments TN LARYNGOSCOPY FLEX FIBEROPTIC, DIAGNOSTIC Routine 07/16/2024 3:47 [...] vomitus documented in this encounter Care Teams Polisher And Buffer Relationship Specialty Start Date End Date Sandy Matta MD [address] [place] [address] PCP - General Family Medicine 09/18/23 Tami Seaman, OD [address] [place], [place] [address] Optometry 09/18/23 Tami Seaman, OD [address] [place], [place] [address] Assigned Surgical Provider 10/14/23 Guy Yost MD [address] [place] [address] Otolaryngology 01/22/24 documented as of this encounter
--- OUTSIDE RECORDS SUMMARY | 2024-08-10 05:56 | XMS_ITS | Encounter Summary ---
Author Organization [facility] Address [address] [place] [address] Care Team Providers Care Test Equipment Mechanic Name Role Phone Jurgen Tami OD Unavailable [phone] Sandy Matta MD Primary Care Provider [phone] Tami Seaman OD Unavailable [phone] Guy Yost MD Unavailable + [phone] Encounter Details Date Type Department Care Team [...] on filedocumented in this encounter Care Teams Test Equipment Mechanic Relationship Specialty Start Date End Date Sandy Matta MD [address] [place] [address] PCP - General Family Medicine 09/18/23 Tami Seaman OD [address] [place] [id number] Optometry 09/18/23 Tami Seaman OD [address] [place] [address] Assigned Surgical Provider 10/14/23 Guy Yost MD [address] [place] [address] Otolaryngology 01/22/24 documented as of this encounter
--- OUTSIDE RECORDS SUMMARY | 2024-08-10 05:56 | XMS_ITS | Encounter Summary ---
Author Organization [facility] [facility] Address [address] [place] [address] Care Team Providers Care Master Chef Name Role Phone JurgenTami OD Unavailable [phone] Sandy Matta MD Primary Care Provider [phone] Tami Seaman OD Unavailable [phone] Guy Yost MD Unavailable + [phone] Reason for Referral * Therapeutic Services (Routine: Next available opening) - Pending Review Specialty Diagnoses / Procedures Referred By Karine velasco Referred To Contact Diagnoses Dysphagia, oropharyngeal phase [facility] [address] [facility] 4th [place] [address] Referral ID Status Reason Start Date Expiration Date V isits Requested Visits Authorized [id number] Pending Review 07/16/2024 07/16/2025 1 1 Question Answer Course of Action: Evaluation and Treatment Speech Treatment Diagnosis: Dysphagia Specialty Services: Clinical Swallow Study Scheduling Instructions: [facility] will call you to coordinate your care as prescribed by your provider. If you don't hear from a sales and service representative within 2 business days, please call . Additional Information: does not need to be scheduled Comments Please be aware that coverage of these services is subject to the terms and limitations of your health insurance plan. Call member services at your health plan with any benefit or coverage questions. [facility] will call you to coordinate your care as prescribed by your provider. If you don't hear from a sales and service representative within 2 business days, please call . Reason for Visit * Therapeutic Services (Routine: Next available opening) - Pending Review Specialty Diagnoses / Procedures Referred By Karine velasco Referred To Contact Diagnoses Dysphagia, oropharyngeal phase [facility] Administrative Intern Ent [address] [place] [address] [address] [place] [address] Referral ID Status Reason Start Date Expiration Date V isits Requested Visits Authorized [id number] Pending Review 07/16/2024 07/16/2025 1 1 Encounter Details Date Type Department Care Team (Latest Contact Info) Description 07/16/2024 3:30 PM CDT Therapy Visit [address] [address] Maryann Wilhelm Dysphagia, oropharyngeal phase [...] Pt and report understanding. Maryann Wilhelm MS, CCC-TALENT ACQUISITION ASSOCIATE Speech-Language Pathology [facility] Department of Otolaryngology/D&T - 4th floor Email: [email or web address] documented in this encounter Plan of Treatment Scheduled Referrals Name Type Priority Associated Diagnoses Orde r Schedule Speech Therapy Public Safety Teacher Referral Referral Routine: Next available opening Dysphagia, oropharyngeal phase Expected: 07/16/2024 (Approximate), Expires: 07/16/2025 documented as of this encounter Visit Diagnoses Diagnosis Dysphagia, oropharyngeal phase- Primary documented in this encounter Care Teams Master Chef Relationship Specialty Start Date End Date Sandy Matta MD [address] [place] [address] PCP - General Family Medicine 09/18/23 Tami Seaman, OD [address] [place], [place] [address] Optometry 09/18/23 Tami Seaman, OD [address] [place], [place] [address] Assigned Surgical Provider 10/14/23 Guy Yost MD [address] [place], [place] [address] Otolaryngology 01/22/24 documented as of this encounter
--- OUTSIDE RECORDS SUMMARY | 2024-08-10 05:56 | XMS_ITS | Data Portability ---
Author Organization [place] [facility], [facility] Address [address] [place] [address] Care Team Providers Care Computer Repair Instructor Name Role JANINE Travis Primary Care Provider Assessment Encounter Date Assessment Date Assessment LastModified [...] Orders finasteride 5 mg tablet 2022 023 [id number], [address], [address], 13:29:16 tadalafil 5 mg tablet 2022 023 [id number], [address], [address], 4 15:29:43 finasteride 5 mg tablet 2022 023 MARANDA [id number], [address], [address], 11:16:37 alfuzosin ER 10 mg tablet,exte nded release 24 hr 2022 023 [id number], [address], [address], 15:29:48 Patient TargetsNo targets recorded. Patient InstructionsNo [...] 4 COMPLEX VISIT completed Siddhartha Cleary MD [address] [place] [address],[address], [address], [facility] 12/27/2023 18:04:21 4 Bladder Scan completed Siddhartha Cleary MD [address] [place] [address],[address], [address], [facility] 12/27/2023 15:30:21 3 Bladder Scan cancelled Siddhartha Cleary MD [address] [place] [address],[address], [address], [facility] 08/24/2023 09:05:59 3 UroCuff completed Ivanna Martinez [facility] 05/11/2023 13:37:35 3 Bladder Scan completed Ivanna Martinez [facility] 05/11/2023 13:36:20 Bladder Scan completed Margie Lewis [facility] 02/15/2023 11:22:06 procedure on lower leg completed Margie Lewis [facility] 02/15/2023 11:19:56 procedure on nose completed Margie Lewis [facility] 02/15/2023 11:20:10 procedure on eyelid completed Margie Lewis [facility] 02/15/2023 11:20:18 Imaging Results Imaging Date [...] Name and Address Organization Details Recorded Time 584883 tolmetin sodium medicatio n hives Not available Not available 02/15/2023 19109 RxNorm Margie Riddle rod campo, [facility] 11:18:20 Medications Name Sig Start Date [...] Updated DateTime 02/15/2023 182.88 cm 23.7 kg/m2 30082.66 derrell Lewis [facility] 02/15/2023 11:17:47 Date Recorded Body height Body mass index (BMI) Body weight Provider Name and Address Organization Details Last Updated DateTime 05/17/2023 182.88 cm 24.4 kg/m2 18097.63 derrell Cleary MD [address] [place] [address], [address], [facility] 05/17/2023 10:52:26 Date Recorded Body height Body mass index (BMI) Body weight Provider Name and Address Organization Details Last Updated DateTime 12/27/2023 182.88 cm 19.1 kg/m2 98926.52 derrell Cleary MD [address] [place] [address],[address], [address] 12/27/2023 15:28:13 Social History Question Answer Notes LastModified by Organizat ion Details LastModified Time Tobacco Smoking Status Former Smoker Margie Lewis alber [facility] 02/15/2023 11:19:11 What Is Your Level Of [...] High Blood Pressure Y Kidney Stones N Depression N Lung Disease N GERD/Acid Reflux N Diabetes N Sexually Transmitted Infection N Bleeding Disorder N Cancer N High Cholesterol N Heart Disease N Immunizations Vaccine Type Date Status Provider Name and Address Organization Details Recorded Time Influenza, split virus, quadrivalent, preservative 08/22/2016 charito campo [facility] 09/07/2023 17:07:16 zoster recombinant 06/15/2018 completed Dorys campo [facility] 09/07/2023 17:07:16 zoster recombinant 08/24/2018 charito campo [facility] 09/07/2023 17:07:16 Influenza, high-dose, quadrivalent, PF 09/02/2021 charito campo [facility] 09/07/2023 17:07:16 Influenza, adjuvanted, quadrivalent, PF 07/22/2022 charito campo [facility] 09/07/2023 17:07:16 COVID-19, mRNA, LNP-S, PF, 100 mcg/0.5mL dose or 50 mcg/0.25mL dose 12/29/2020 completed Dorys Lire null, [facility] 09/07/2023 17:07:16 COVID-19, mRNA, LNP-S, PF, 100 mcg/0.5mL dose or 50 mcg/0.25mL dose 01/24/2021 completed Dorys Lire null, [facility] 09/07/2023 17:07:16 COVID-19, mRNA, LNP-S, PF, 100 mcg/0.5mL dose or 50 mcg/0.25mL dose 02/28/2022 completed Dorys Lire null, [facility] 09/07/2023 17:07:16 COVID-19, mRNA, LNP-S, PF, 30 mcg/0.3 mL dose 10/11/2021 completed Dorys Ibarra null, [facility] 09/07/2023 17:07:16 COVID-19, mRNA, LNP-S, bivalent, PF, 30 mcg/0.3 mL dose 10/24/2022 completed Dorys campo, [facility] 09/07/2023 17:07:16 pneumococcal polysaccharide PPV23 01/12/2022 [facility]07[facility]2023 17:07:16 Tdap 05/04/2012 [facility]07/2023 17:07:16 Novel [id number], all formulations 2009 completed Dorys campo, [facility] 09/07/2023 17:07:16 zoster live 05/04/2012 completed Dorys Ibarra null, [facility] 09/07/2023 17:07:16 Influenza, split virus, trivalent, preservative 08/07/2013 completed Dorys Lire null, [facility] 09/07/2023 17:07:16 Influenza, split virus, trivalent, preservative 08/27/2010 completed Dorys Lire null, [facility] 09/07/2023 17:07:16 Influenza, split virus, trivalent, preservative 09/05/2008 completed Dorys Almejere null, [facility] 09/07/2023 17:07:16 Influenza, split virus, trivalent, preservative 09/06/2007 completed Dorys Almejere null, [facility] 09/07/2023 17:07:16 Influenza, split virus, trivalent, preservative 09/09/2003 completed Dorys Almejere null, [facility] 09/07/2023 17:07:16 Influenza, split virus, trivalent, preservative 09/21/2005 completed Dorys Almejere null, [facility] 09/07/2023 17:07:16 Influenza, split virus, trivalent, PF 10/21/2009 completed Dorys Almejere null, [facility] 09/07/2023 17:07:16 Td (adult), 5 Lf tetanus toxoid, preservative free, adsorbed 07/12/2007 completed Dorys Almejere null, [facility] 09/07/2023 17:07:16 Td (adult), 2 Lf tetanus toxoid, preservative free, adsorbed 07/22/2022 completed Dorys Almejere null, [facility] 09/07/2023 17:07:16 Influenza, split virus, quadrivalent, PF 07/31/2014 completed Dorys Almejere null, [facility] 09/07/2023 17:07:16 Influenza, split virus, quadrivalent, PF 08/04/2020 completed Dorys Almejere null, [facility] 09/07/2023 17:07:16 Influenza, split virus, quadrivalent, PF 08/15/2019 completed Dorys Almejere null, [facility] 09/07/2023 17:07:16 Influenza, split virus, quadrivalent, PF 08/24/2018 completed Dorys Almejere null, [facility] 09/07/2023 17:07:16 Influenza, split virus, quadrivalent, PF 09/08/2017 completed Dorys Almejere null, [facility] 09/07/2023 17:07:16 Influenza, split virus, quadrivalent, PF 09/11/2015 completed Dorys Almejere null, [place] [facility] [place] [facility] 09/07/2023 17:07:16 Past Encounters Encounter ID Performer Location Encounter Start Date Encounter Closed Date Diagnosis/Indication Diagnosis SNOMED-CT Code Diagnosis ICD10 Code [id number] Siddhartha Cleary MD [facility] 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 [place] [address] 05/11/2023 10:55:44 05/18/2023 11:24:31 Induration penis plastica 6981096 N48.6 Injury of penis 19830569 6 S30.93XD Slowing of urinary stream 11328582 R39.12 [id number] Siddhartha Cleary MD [facility] [address] [place] [address] 05/17/2023 10:47:54 05/22/2023 14:33:26 Induration penis plastica 9628596 N48.6 Injury of penis 36692819 6 S30.93XD Slowing of urinary stream 40319860 R39.12 Retrograde ejaculation 41971888 N53.14 [id number] Siddhartha Cleary MD [facility] [address] [place] [address] 12/27/2023 15:16:02 01/02/2024 14:10:57 Induration penis plastica 1273404 N48.6 Injury of penis 14961750 6 S30.93XD Slowing of urinary stream 91748176 R39.12 Retrograde ejaculation 87710901 N53.14 Health Concerns Section Related Observation LastModified by Organization Detai ls LastModified Time None Recorded Concern Status LastModified by Organization Details LastModified Time None Recorded Advance Directives Directive None Recorded Payers Encounter Date Sequence Insurance Name Policy Number Policy Cervantes Covered Member ID Cervantes Member ID Guarantor Name 02/15/2023 2 [place] [employer] [employer] Sher Guillen [id number] Vinh L D[place] 02/15/2023 1 [place] [employer] Vinh L Dresow [id number] Vinh L Dresow 05/11/2023 2 [facility] 113 Vinh L Dresow [id number] Vinh L Dresow 05/11/2023 1 [place] [facility] [employer] Vinh L Dresow [id number] Vinh L Dresow 05/17/2023 2 [facility] 113 Vinh L Dresow [id number] Vinh L Dresow 05/17/2023 1 [place] [facility] [employer] Vinh L Dresow [id number] Vinh L Dresow 12/27/2023 2 [facility] 113 Vinh L Dresow [id number] Vinh L Dresow 12/27/2023 1 [facility] [employer] Vinh L Dresow [id number] 3 Vinh L Dresow Notes Date Note [...] more of a bother. Siddhartha Cleary MD [address] [place] [address],[address], [place], [address], [facility] 02/15/2023 13:31:06 05/17/2023 text/html HPI Notes: [...] atypical for him. Siddhartha Cleary MD [address] [facility] [address], [place], [address], [facility] 05/17/2023 11:37:51 12/27/2023 text/html HPI Notes: [facility] patient here for f/u history of penile [...] intensive care unit stay. Hospital notes from [facility] reviewed. Due to concerns of hypotension his tamsulosin was stopped. He is seen today with his provides some of the history. At current he reports his most bothersome symptom is nocturia. Siddhartha Cleary MD [address] [facility] [address] [facility],[address], [place], [address], [facility] 12/27/2023 18:04:34
--- OUTSIDE RECORDS SUMMARY | 2024-08-10 05:56 | XMS_ITS | Encounter Summary ---
Author Organization [place] Address [address] [place] [address] Care Team Providers Care Confectionery Cooker Name Role Phone Jurgen Tami OD Unavailable [phone] Sandy Matta MD Primary Care Provider [phone] Tami Seaman OD Unavailable [phone] Guy Ysot MD Unavailable + [phone] Encounter Details Date Type Department Care Team [...] on filedocumented in this encounter Care Teams Confectionery Cooker Relationship Specialty Start Date End Date Sandy Matta MD Paolo Alcalaerson [place] [address] PCP - General Family Medicine 09/18/23 Tami Seaman OD [address] [place] [phone] Optometry 09/18/23 Tami Seaman OD [address] [place] [address] Assigned Surgical Provider 10/14/23 Guy Yost MD [address] [place] [address] Otolaryngology 01/22/24 documented as of this encounter
--- OUTSIDE RECORDS SUMMARY | 2024-08-10 05:56 | XMS_ITS | Encounter Summary ---
Author Organization [place] Address [address] [place] [address] Care Team Providers Care Trimming Assembler Name Role Phone JurgenTami OD Unavailable [phone] aSndy Matta MD Primary Care Provider [phone] Tami Seaman OD Unavailable [phone] Guy Yost MD Unavailable + [phone] Reason for Visit * Reason Onset Date Comments Previsit 07/16/2024 Encounter Details Date Type Department Care Team (Late st Contact Info) Description 07/16/2024 PRE VISIT [facility] [address] [address] Elaina Cervantes MD [address] [place] [address] Previsit Social History Tobacco Use Types [...] INFORMATION: Date: 07/16/24 Time: 3:30 PM Location: [facility] [place] [facility] REFERRAL INFORMATION: Referring provider: Sandy Matta MD Referring providers clinic: [facility] Reason for visit/diagnosis Per pt's spouse-trouble swallowing, airway restriction, in hospital weekly for pneumonia. CSC verified. Records in [facility]. Higher priority referral being sent. Please send message when received. Please call [phone] Sandy Matta-PCP for more information RECORDS REQUESTED FROM: Clinic name Comments Records Status Imaging Status [facility] 01/26/24, 01/22/24- referral Sandy Matta MD 12/29/23, 12/12/23 - OV Ari Lopes MD More in CE Images: 02/14/24- XR Video Swallow 05/13/2024 XR chest [facility] 02/27/24- pending req PACS [facility] 02/14/24- Pending req 02/27/24- Received [facility] 10/09/23- XR Chest 10/02/23- XR Chest 10/01/23- XR Chest 09/29/23- XR Chest 09/19/23- CT Head 09/19/23- CT Spine 09/05/23- XR Chest 09/01/23- XR Chest 08/30/23- XR Chest 08/29/23- XR Chest [facility] [facility] 02/14/24- Pending req Disc received 02/22/24 [facility] 03/19/2024 OV with Rafal Rankin M.D. Imagin03/22/2024 [place] SWALLOW CE Req 06/24/24 PACS June 24, 2024 10:51 AM - request to [facility] to push images to [facility] June 26, 2024 10:40 AM - Images received and resolved in PACS -[place] documented in this encounter Plan of Treatment Not on file documented as of this encounter Visit Diagnoses Not on filedocumented in this encounter Care Teams Trimming Assembler Relationship Specialty Start Date End Date Sandy Matta MD [address] [place] [address] PCP - General Family Medicine 09/18/23 Tami Seaman OD [address] [place] [address] Optometry 09/18/23 Tami Seaman, OD [address] [place] [address] Assigned Surgical Provider 10/14/23 Guy Yost MD [address] [place] [address] Otolaryngology 01/22/24 documented as of this encounter
--- OUTSIDE RECORDS SUMMARY | 2024-08-10 05:56 | XMS_ITS | Encounter Summary ---
Author Organization [place] Address [address] [place] [address] Care Team Providers Care Land Leasing Examiner Name Role Phone JurgenTami OD Unavailable [phone] Sandy Matta MD Primary Care Provider [phone] Tami Seaman OD Unavailable [phone] Guy Yost MD Unavailable + [phone] Encounter Details Date Type Department Care Team (Late st Contact Info) Description 07/16/2024 2:45 PM CDT Office Visit [facility] [address] 4[address] [place] [address] Sandy Matta MD [address] [place] [address] [place] [address] Provider, Rashard Ent Dysphonia Live Ammunition Inspector Dysphonia (Primary Dx); Inspiratory stridor; Bilateral vocal [...] do to help. -Zacarias Guido M.M., M.A., [facility]-DRYWALL TAPER HELPER Speech-Language Pathologist Certificate of Vocology documented in this encounter Progress Notes * Jeronimo Guido SLP - 07/16/2024 2:45 PM CDT [facility] Evaluation report Clinician: Jeronimo Guido M.M., M.A., [facility]/DRYWALL TAPER HELPER Seen in conjunction with: Dr. Cervantes Patient: [...] was seen by Dr. [facility]in [facility] with discussion of possible avenues for intervention [...] SWALLOWING Please see my colleague Maryann Wilhelm CCC-DRYWALL TAPER HELPER's note from today's date for full details [...] please see Dr. Cervantes and Maryann Wilhelm, CCC-DRYWALL TAPER HELPER's notes from today's date for additional details [...] stressful 4 EAT-10 40 PERCEPTUAL EVALUATION (CPT 25364) POSTURE / TENSION: neck and shoulders BREATHING: [...] Dr. Cervantes and my colleague Bessie Wilhelm [facility]-DRYWALL TAPER HELPER's notes from today's date. Patient will be seen in the future as recommended by the physician. Certification period: Evaluation only This treatment plan was developed with the patient who agreed with the recommendations. TOTAL SERVICE TIME: 45 minutes EVALUATION OF VOICE AND RESONANCE (05728) NO CHARGE FACILITY FEE (94633) Jeronimo Guido M.M., M.A., CCC-DRYWALL TAPER HELPER Speech-Language Pathologist Certificate of Vocology [phone] *this report was created in part through [...] larynx documented in this encounter Care Teams Land Leasing Examiner Relationship Specialty Start Date End Date Sandy Matta MD [address] [place] [address] PCP - General Family Medicine 09/18/23 Tami Seaman, OD [address] [place] [phone] Optometry 09/18/23 Tami Seaman, OD [address] [place] [phone] Assigned Surgical Provider 10/14/23 Guy Yost MD [address] [place] [address] Otolaryngology 01/22/24 documented as of this encounter
--- OUTSIDE RECORDS SUMMARY | 2024-08-10 05:56 | XMS_ITS | Clinical Summary ---
Author Organization [facility] Address [address] [place] [address] Phone Care Team Providers Care Color Finisher Name Role Phone Sandy Matta Primary Care [...] Comments Blood Pressure 134/82 10/09/2023 7:44 PM PRODUCTION MACHINIST Pulse 80 10/10/2023 8:00 AM PRODUCTION MACHINIST Temperature 36 ??C (96.8 ??F) 10/09/2023 7:44 PM PRODUCTION MACHINIST Respiratory Rate 18 10/10/2023 8:00 AM PRODUCTION MACHINIST Oxygen Saturation 98% 10/10/2023 8:00 AM PRODUCTION MACHINIST Inhaled Oxygen Concentration - - Weight 87.8 kg (193 lb 9.6 oz) 10/04/2023 4:00 A M PRODUCTION MACHINIST Height 180.3 cm (5' 11) 08/29/2023 2:44 [...] have received informed consent. Yes Care Teams Color Finisher Relationship Specialty Start Date End Date Sandy Matta DO [address] [place] [address] PCP - General Family Medicine 08/30/23
--- OUTSIDE RECORDS SUMMARY | 2024-08-10 05:56 | XMS_ITS | Encounter Summary ---
Author Organization [place] Address [address] [place] [address] Care Team Providers Care Education Teacher Name Role Phone Tami Seaman OD Unavailable [phone] Sandy Matta MD Primary Care Provider [phone] Tami Seaman OD Unavailable [phone] Guy Yost MD Unavailable + [phone] Encounter Details Date Type Department Care Team (Late st Contact Info) Description 07/19/2024 [facility] Medical Advice [address] [place] [address] Jeronimo Guido, [address] [address] Social History Tobacco Use Types Packs/Day Years [...] on filedocumented in this encounter Care Teams Education Teacher Relationship Specialty Start Date End Date [place] [address] [place] [address] PCP - General Family Medicine 09/18/23 Tami Seaman OD [address] [place] [address] Optometry 09/18/23 Tami Seaman, OD [address] [place] [address] Assigned Surgical Provider 10/14/23 Guy Yost MD [address] [place] [address] Otolaryngology 01/22/24 documented as of this encounter
--- OUTSIDE RECORDS SUMMARY | 2024-08-10 05:56 | XMS_ITS | Clinical Summary ---
Author Organization [place] Address [address] [place] [address] Care Team Providers Care Towboat Operator Name Role Phone JurgenTami OD Unavailable [phone] Sandy Matta MD Primary Care Provider [phone] Tami Seaman OD Unavailable [phone] Guy Yost MD Unavailable [phone] Allergies Active Allergy Reactions Criticality Noted Date [...] sodium chloride (OCEAN) 0.65 % nasal spray [place] 1-2 sprays in nostril 12/07/2023 Active traZODone [...] Care Team Description 07/19/2024 My[facility] Medical Advice [facility] Voice [address] [phone] Jeronimo Guido, FLOR 07/17/2024 MyC Medical Advice [facility] [address] [address] Elaina Cervantes MD 07/16/2024 3:30 PM CDT Therapy Visit [facility] [address] [phone] Maryann Wilhelm Dysphagia, oropharyngeal phase (Primary Dx) 07/16/2024 2:45 PM CDT Office Visit [address] [phone] Sandy Matta MD Provider, Ent Dysphonia 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 Health 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 Dysphonia (Primary Dx); Inspiratory stridor; Bilateral vocal fold paralysis 07/16/2024 2:45 PM CDT Office Visit [facility] [address] [phone] Sandy Matta MD Gray, Raluca, MD Dysphonia (Primary Dx); Oropharyngeal dysphagia; 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, sequela; Recurrent aspiration pneumonia (H) 07/16/2024 Travel 07/16/2024 PRE VISIT [facility] [address] [address] Elaina Cervantes MD Previsit 07/12/2024 Travel from [...] Procedure Name Priority Date/Time Associated Diagnosis Comments NE BEHAVIORAL & QUALITATIVE ANALYSIS VOICE AND RESONANCE Routine 07/23/2024 11:47 AM CDT Dysphonia Inspiratory stridor Bilateral vocal fold paralysis NE LARYNGOSCOPY FLEX FIBEROPTIC, DIAGNOSTIC Routine 07/16/2024 3:47 PM CDT Oropharyngeal dysphagia IMAGESTREAM RECORDING ORDER Routine 07/16/2024 3:27 PM CDT Dysphonia from Last 3 Months Results * IMAGESTREAM RECORDING ORDER (07/16/2024 3:27 PM CDT) 07/16/2024 3:27 PM CDT Elaina Cervantes MD OTHER RADIOLOGY RESULTS from Last 3 Months Care Teams Towboat Operator Relationship Specialty Start Date End Date Sandy Matta MD [address] [place] [address] PCP - General Family Medicine 09/18/23 Tami Seaman, OD [address] [place] [phone] Optometry 09/18/23 Tami Seaman, OD [address] [place] [phone] Assigned Surgical Provider 10/14/23 Guy Yost MD [address] [place] [address] Otolaryngology 01/22/24
--- OUTSIDE RECORDS SUMMARY | 2024-08-10 05:56 | XMS_ITS | Clinical Summary ---
Author Organization [employer] Address [address], [place] [address] Care Team Providers Care Cartographic Drafter Name Role Phone Found, No Pcp MD Primary Care Provider Unavailab le Source Comments You are receiving this document as you are listed as the primary care provider,follow-up provider, or the patient has been referred to you for consultation.This is in compliance with the Medicare andRegional Medical Centercaid EHR Incentive Program,which states Providers who transition their patient to another setting of careor provider of care or refers their patient to another provider of care shouldprovide summary care record for each transition of care or referral. 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 10/25/2017 Other specific arthropathies , not elsewhere classified, multiple sites 05/25/2011 Overview (07/05/2017): Other specified arthropathy, multiple sites Immunizations Name Administration Dates Next Due Flu Vac (3+ yrs) 08/19/2013, 3,08/27/2010, 009,09/05/2008,09/06/2007,09/13/2006,07/2005,09/09/2003 Flu Vac Preserv Free (3+yrs) 08/27/2008 Influenza ([place] Only) (Flul aval Quad 0.5, 3+ yrs) 08/22/2016 Influenza S0H1-34 2009 Influenza IIV4 (Quadrivalent ) 0.5mL (73807) 08/24/2018,09/08/2017,09/11/2015, 014 Td 11/13/1996 Tdap 05/04/2012 Zoster [...] Comments Blood Pressure 128/77 10/28/2020 1:49 PM K [employer] PROFESSIONAL Pulse 69 10/28/2020 1:49 PM K [employer] Temperature 36.4 ??C (97.5 ??F) 10/28/2020 1 :49 PM K [employer] PROFESSIONAL Respiratory Rate 18 11/11/2015 3:07 PM K [employer] PROF[employer]AL Oxygen Saturation - - Inhaled Oxygen Concentration - - Weight 85.6 kg (188 lb 12.8 oz) 019 4:32 PM K 12 SCHO[employer] PROFESSIONAL Height 182.9 cm (6') 03/26/2009 2:31 PM [...] age to complete this topic Care Teams Cartographic Drafter Relationship Specialty Start Date End Date Found, No Pcp, [address] [place] [address] PCP - General 10/18/18
--- OUTSIDE RECORDS SUMMARY | 2024-08-10 05:56 | XMS_ITS | Encounter Summary ---
Author Organization [facility] Address [address] [place] [address] Care Team Providers Care Physicians And Surgeons Name Role Phone Tami Seaman OD Unavailable [phone] Sandy Matta MD Primary Care Provider [phone] Tami Seaman OD Unavailable [phone] Guy Yost MD Unavailable + [phone] Encounter Details Date Type Department Care Team (Late st Contact Info) Description 07/17/2024 [facility] [place] [facility] [address] [place] [address] Elaina Cervantes MD [address] [place] [address] Social History Tobacco Use Types Packs/Day [...] on filedocumented in this encounter Care Teams Physicians And Surgeons Relationship Specialty Start Date End Date [place] [address] [address] PCP - General Family Medicine 09/18/23 Tami Seaman, OD [address] [place] [address] Optometry 09/18/23 Tami Seaman, OD [address] [place] [address] Assigned Surgical Provider 10/14/23 Guy Yost MD [address] [place] [address] Otolaryngology 01/22/24 documented as of this encounter
--- OUTSIDE RECORDS SUMMARY | 2024-08-10 05:56 | XMS_ITS | Referral Summary ---
Author Organization [facility] Address [address] [place] [address] Care Team Providers Care Stamp Pad Finisher Name Role Phone JurgenTami OD Unavailable [phone] Sandy Matta MD Primary Care Provider [phone] Tami Seaman OD Unavailable [phone] Guy Yost MD Unavailable + [phone] Encounters Date Type Department Care Team Description 07/19/2024 [facility] Medical Advice [facility] Voice [address] [phone] Jeronimo Guido, FLOR 07/17/2024 [facility] Medical Advice [facility] [address] [phone] Elaina Cervantes MD 07/16/2024 Travel 07/16/2024 3:30 PM CDT Therapy Visit [facility] [address] [phone] Maryann Wilhelm Dysphagia, oropharyngeal phase (Primary Dx) 07/16/2024 PRE VISIT [facility] [address] [phone] Elaina Cervantes MD Previsit 07/16/2024 2:45 PM CDT Office Visit [facility] Voice [address] [phone] Sandy Matta MD Provider, Ent Dysphonia 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 Dysphonia (Primary Dx); Inspiratory stridor; Bilateral vocal fold paralysis 07/16/2024 2:45 PM CDT Office Visit [facility] [address] 4th [place] [phone] Sandy Matta MD Gray, Raluca, MD Dysphonia [...] sodium chloride (OCEAN) 0.65 % nasal spray Marble 1-2 sprays in nostril 12/07/2023 Active traZODone [...] Name Priority Date/Time Associated Diagnosis Comments [place] BEHAVIORAL & QUALITATIVE ANALYSIS VOICE AND RESONANCE Routine 07/23/2024 11:47 AM CDT Dysphonia Inspiratory stridor Bilateral vocal fold paralysis OH LARYNGOSCOPY FLEX FIBEROPTIC, DIAGNOSTIC Routine 07/16/2024 3:47 PM CDT Oropharyngeal dysphagia IMAGESTREAM RECORDING ORDER Routine 07/16/2024 3:27 PM CDT Dysphonia from Last 3 Months Results * IMAGESTREAM RECORDING ORDER (07/16/2024 3:27 PM CDT) 07/16/2024 3:27 PM CDT Elaina Cervantes MD OTHER RADIOLOGY RESULTS from Last 3 Months Care Teams Stamp Pad Finisher Relationship Specialty Start Date End Date [place] [address] [address] PCP - General Family Medicine 09/18/23 Tami Seaman, OD [address] [place], [place] [phone] Optometry 09/18/23 Tami Seaman, OD [address] [place] [phone] Assigned Surgical Provider 10/14/23 Guy Yost MD [address] [place], [place] [phone] Otolaryngology 01/22/24
--- OUTSIDE RECORDS SUMMARY | 2024-08-10 05:56 | XMS_ITS | Clinical Summary ---
Author Organization [facility] Address [address] [place] [address] Care Team Providers Care Driver Guard Name Role Phone Elsewhere, Pcp Primary Care Provider Unavailabl e Source Comments Patient records contain information from all sites at [facility]. For routine questions regarding patient records, call [phone] during business hours, M-F 8:00 AM - 5:00 PM Central Time. Record requests for emergency care only can be directed to [phone] at any time.[facility] Allergies Active Allergy Reactions Criticality Noted [...] 1 each daily. durable medical equipment (DME). In[employer] feed bag Ref# [id number]. Change bag every 24 hours. 4 Active [...] 08/06/2024 Clinical Communication Department of Otorhinolaryngology in [place], [place] [address] [place] [address] Rafal Rankin M.D. 08/06/2024 Orders Only Department of Otorhinolaryngology in [place], [place] [address] [place] [address] Rafal Rankin M.D. 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 07/23/2024 1:46 PM CDT - 07/23/2024 2:44 PM CDT Surgery [facility] OR [address] [place] [phone] Rafal Rankin M.D. INJECTION BOTOX TO SUBMANDIBULAR GLANDS 50 units total, 25 units into each gland, ULTRASOUND GUIDANCE. 07/23/2024 1:12 PM CDT Anesthesia Event [facility] OR [address] [place] [phone] Tayo Bradford D.O. Higgins, Timon J, M.D. 07/23/2024 11:19 AM CDT - 07/23/2024 2:16 PM CDT [place] [address] [place] [phone] Rafal Rankin M.D. Discharge Disposition: Home or Self Care 07/23/2024 10:00 AM CDT - 07/23/2024 11:18 AM CDT Hospital Encounter Department of Radiology, [facility] in [address] [address] Rafal Rankin M.D. Sialorrhea Discharge Disposition: Home or Self Care 07/18/2024 1:00 PM CDT Office Visit Department of Otorhinolaryngology in [address] [address] Rafal Rankin M.D. 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 06/25/2024 9:00 AM CDT Telemedicine Department of Otorhinolaryngology in [place], [place] [address] [place] [phone] Rafal Rankin M.D. 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 McKay, Elisa C, APRN, C.N.P., D.N.P. Dysphagia; Stenosis Laryngeal; Pneumonitis Due To Inhalation Of Food And Vomit (HCC) 06/18/2024 10:00 AM CDT Clinical Support Division of Endocrinology in [place], [place] [address] [place] [phone] Stan Hernandez M.D. Neldner, Indra K, R.N. Dysphagia; Stenosis Laryngeal; Pneumonitis Due To Inhalation Of Food And Vomit (HCC) 06/18/2024 9:00 AM CDT Clinical Support Department of Nutrition and Diabetes Education in [address] [address] Stan Hernandez M.D. Johnson, Danelle A, M.S., RDN, LD Dietary Counseling And Surveillance For Enteral Nutrition (Primary Dx); Dysphagia; Stenosis Laryngeal; Pneumonitis Due To Inhalation Of Food And Vomit (HCC); Gastrojejunostomy Percutaneous Status Post 06/18/2024 Documentation Division of Endocrinology in [place], [place] [address] [place] [phone] Imelda Escamilla RTomasa Scheduling 06/18/2024 Orders Only Division of Endocrinology in [place], [place] [address] [place] [phone] Cristiane Palacio, GRUPO, C.N.P., D.N.P. Dysphagia (Primary Dx) 06/18/2024 Orders Only Division of Endocrinology in [place], [place] [address] [place] [phone] Ankit Medina RTomasa Dietary Counseling And Surveillance For Enteral Nutrition (Primary Dx) 06/18/2024 Orders Only Department of Otorhinolaryngology in [place], [place] [address] [place] [phone] Luz Muir R.N. Sialorrhea (Primary Dx) 06/18/2024 Clinical Communication Department of Otorhinolaryngology in [place], [place] [address] [place] [phone] Rafal Rankin M.D. 06/17/2024 Orders Only Department of Otorhinolaryngology in [place], [place] [address] [place] [phone] Rafal Rankin M.D. 05/20/2024 8:00 AM CDT Comprehensive Visit Department of Ophthalmology in [place], [place] [address] [place] [phone] Kandace Shankar M.D. Esotropia (Primary Dx); Traumatic Subarachnoid Hemorrhage Without Loss Of Consciousness Sequela (HCC); Diplopia 05/20/2024 Orders Only Department of Ophthalmology in [place], [place] [address] [place] [phone] Kandace Shnakar M.D. Diplopia (Primary Dx) 05/17/2024 5:20 PM CDT Ancillary Procedure Department of Ophthalmology 05/17/2024 4:30 PM CDT Ancillary Procedure Department of Ophthalmology in [address] [address] Kandace Shankar M.D. Traumatic Subarachnoid Hemorrhage Without Loss Of Consciousness Sequela (HCC) 05/17/2024 3:00 PM CDT Ancillary Procedure Department of Ophthalmology in [address] [address] Kandace Shankar M.D. Traumatic Subarachnoid Hemorrhage Without Loss Of Consciousness Sequela (HCC) 05/17/2024 2:55 PM CDT Ancillary Procedure Department of Ophthalmology 05/15/2024 10:30 AM CDT Clinical Communication Virtual Review in [address] [address] Blood Pressure from Last 3 Months Social History Tobacco Use Types Packs/Day Years Used Date Smoking Tobacco: Former Cigarettes Q uit: 1985 Smokeless Tobacco: Never Tobacco Cessation:Counseling Given: Not Answered Alcohol Use Standard Drinks/Week Comments Not Currently 0 (1 standard drink = 0.6 oz pur e alcohol) [facility] Utilities Answer Date Recorded In the [...] CDT Comprehensive Visit Department of Neurology in [place], [place] [address] [place] [phone] Cristiane Palacio APRN, C.N.P., D.N.P. [address] [place] [phone] Kriss Wharton M.S., CCC-LABOR SPECIALIST [address] [place] [phone] 08/15/2024 9:00 AM CDT Appointment Department of Radiology, [facility], in [place], [place] [address] [place] [phone] Cristiane Palacio APRN, C.N.P., D.N.P. [address] [place] [phone] Kriss Wharton M.S., CCC-LABOR SPECIALIST [address] [place] [phone] 08/15/2024 9:45 AM CDT Clinical Support Department of Neurology in [place], [place] [address] [place] [phone] Cristiane Palacio, GRUPO, C.N.P., D.N.P. [address] [place] [phone] Kriss Wharton M.S., [facility]-LABOR SPECIALIST [address] [place], [place] [phone] 08/15/2024 1:00 PM CDT Office Visit Department of Otorhinolaryngology in [place], [place] [address] [place] [phone] Rafal Rankin M.D. [address] [place] [phone] 08/15/2024 2:30 PM CDT Ancillary Procedure Department of Ophthalmology in [place], [place] [address] [place] [phone] Kandace Shankar M.D. [address] [place] [phone] 08/15/2024 3:00 PM CDT Comprehensive Visit Department of Ophthalmology in [place], [place] [address] [place] [phone] Peña Carver M.D. [address] [place] [phone] 08/15/2024 4:15 PM CDT Office Visit Department of Ophthalmology in [place], [place] [address] [place] [phone] Kandace Shankar M.D. [address] [place] [phone] 08/20/2024 3:00 PM CDT Appointment Division of Gastroenterology in [place], [place] [address] [place] [phone] Cristiane Palacio, GRUPO, C.N.P., D.N.P. [address] [place] [phone] 08/22/2024 4:20 PM CDT Telemedicine Division of Gastroenterology in [place], [place] [address] [place] [phone] Swapnil Jaramillo M.D. [address] [place] [phone] 10/22/2024 8:30 AM SEAFOOD TEAM MEMBER Clinical Communication Virtual Review in [place], [place] 200 [place] [phone] 10/25/2024 10:30 AM SEAFOOD TEAM MEMBER Comprehensive Visit Department of Neurology in [place], [place] [address] [place] [phone] Oziel Odonnell M.D. 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 The findings are consistent with my previously initiated care plan. I agree with the impression, plan, and follow up as entered by the baker bench. Notes See note. Kandace Shankar M.D. OPHTH TOMOGRAPHY Performing Organization Address [facility] Co de Phone Number OPHTHALMOLGY NON-IMAGING ORDERS * [...] Ganglion cell layer was 29.00 microns. Notes [facility] See note. Kandace Shankar M.D. OPHTH TOMOGRAPHY Performing Organization Address [facility] de Phone Number OPHTHALMOLOGY IMAGING [...] RAD IMAGI NG PROCEDURES Performing Organization Address [facility] de Phone Number IIMS NA [...] OPHTH VISUAL FIEL D OPHTHALMOLOGY IMAGING EXAM * (ABNORMAL) Basic Metabolic Panel (02/28/2024 12:21 [...] Pham APRN C.N.P., M.S.N. LAB BLOOD ADD-ON [facility] [address] [place] [address], [facility] DTL [facility] [address] [place] [address] from Last 3 Months or Most Recently Relevant to Health Maintenance Advance Directives For more information, please contact: [phone] Documents on File Type Date Recorded Patient Shoe Caser Expl anation Advance Directives 02/28/2024 2:04 PM Malika Guillen HCPOA/ADVOCATE/AGENT/R EPRESENTATIVE/SURROGAT E * Full Code (Latest Code Status on File) Date Activated Date Inactivated Comments 02/27/2024 12:46 AM 02/28/2024 4:31 PM Question Answer Comments Full Code: Discussed Healthcare Agents on File Name Relationship Healthcare Agent Latasha Guillen Spouse Health Care Agent Malika Bryant Sister First Alternate Health Care Agent Care Teams Driver Guard Relationship Specialty Start Date End Date Elsewhere, Pcp PCP - General Internal Medicine 02/26/24
--- OUTSIDE RECORDS SUMMARY | 2024-08-10 05:57 | XMS_ITS | Encounter Summary ---
Author Organization [facility] Address [address] [place] [address] Care Team Providers Care Child Abuse Worker Name Role Phone Elsewhere, Pcp Primary Care Provider Unavailabl e Encounter Details Date Type Department Care Team (Latest Contact Info) Description 07/24/2024 Clinical Communication Division of Endocrinology in [place], [place] [address] [place] [address] Cristiane Palacio, GRUPO, C.N.P., D.N.P. [address] [place] [address] Social History Tobacco Use Types Packs/Day Years Used Date Smoking Tobacco: Former Cigarettes Q uit: 1985 Smokeless Tobacco: Never Alcohol Use Standard Drinks/Week Comments Not Currently 0 (1 standard drink = 0.6 oz pur e alcohol) [facility] Utilities Answer Date Recorded In the past 12 months has e [employer], gas, oil, or water company threatened to [...] your living situation today? [facility] live 03/12/2024 Sex [...] CDT Comprehensive Visit Department of Neurology in [address] [phone] Cristiane Palacio APRN, C.N.P., D.N.P. [address] [place] [phone] Kriss Wharton, M.S., CCC-PRESSER FIRST [address] [place] [phone] 08/15/2024 9:00 AM CDT Appointment Department of Radiology, [facility], in [address] [phone] Cristiane Palacio APRN, C.N.P., D.N.P. [address] [place] [phone] Kriss Wharton, M.S., CCC-PRESSER FIRST [address] [place] [phone] 08/15/2024 9:45 AM CDT Clinical Support Department of Neurology in [address] [phone] Cristiane Palacio APRN, C.N.P., D.N.P. [address] [place] [phone] Kriss Wharton, M.S., CCC-PRESSER FIRST [address] [place] [phone] 08/15/2024 1:00 PM CDT Office Visit Department of Otorhinolaryngology in [address] [place] [address] Rafal Rankin M.D. [address] [place] [phone] 08/15/2024 2:30 PM CDT Ancillary Procedure Department of Ophthalmology in [place], [place] [address] [place] [phone] Kandace Shankar M.D. [address] [place] [phone] 08/15/2024 3:00 PM CDT Comprehensive Visit Department of Ophthalmology in [place], [place] [address] [place] [phone] Peña Carver M.D. [address] [place] [phone] 08/15/2024 4:15 PM CDT Office Visit Department of Ophthalmology in [place], [place] [address] [place] [phone] Kandace Shankar M.D. [address] [place] [phone] 08/20/2024 3:00 PM CDT Appointment Division of Gastroenterology in [place], [place] [address] [place] [phone] Cristiane Palacio, GRUPO, C.N.P., D.N.P. [address] [place] [phone] 08/22/2024 4:20 PM CDT Telemedicine Division of Gastroenterology in [place], [place] [address] [place] [phone] Swapnil Jaramillo M.D. [address] [place] [phone] 10/22/2024 8:30 AM CHANCELLOR Clinical Communication Virtual Review in [place], [place] [address] [place] [address] 10/25/2024 10:30 AM CHANCELLOR Comprehensive Visit Department of Neurology in [place], [place] [address] [place] [phone] Oziel Odonnell M.D. [address] [place] [phone] documented as of this encounter Visit Diagnoses Not on filedocumented in this encounter Care Teams Child Abuse Worker Relationship Specialty Start Date End Date Elsewhere, Pcp PCP - General Internal Medicine 02/26/24 documented as of this encounter
--- OUTSIDE RECORDS SUMMARY | 2024-08-10 05:57 | XMS_ITS | Encounter Summary ---
Author Organization [facility] Address [address] [place] [address] Care Team Providers Care Biomass Facilitator Name Role Phone Elsewhere, Pcp Primary Care Provider Unavailabl e Reason for Visit * Auth/Cert (Routine) Specialty Diagnoses / Procedures Referred By Karine t Referred To Contact Diagnoses Sialorrhea Sialorrhea [K11.7] Procedures OR CHEMODENERV PAROTID SUBMAN INJECTION BOTOX TO SALIVARY GLANDS 100 units total (25 units into each gland), ULTRASOUND GUIDANCE; PROCEED INDICATED Rafal Rankin M.D. [address] [place] [address] Referral ID Status Reason Start Date Expiration Date Visits Re quested Visits Authorized [id number] 1 1 Encounter Details Date Type Department Care Team (Late st Contact Info) Description 07/23/2024 1:46 PM CDT - 07/23/2024 2:44 PM CDT Surgery [facility] MAIN OR [address] [place] [phone] Rafal Rankin M.D. [address] [place] [phone] INJECTION BOTOX TO SUBMANDIBULAR GLANDS 50 units total, 25 units into each gland, ULTRASOUND GUIDANCE. Social History Tobacco Use Types Packs/Day Years Used Date Smoking Tobacco: Former Cigarettes Q uit: 1985 Smokeless Tobacco: Never Alcohol Use Standard Drinks/Week Comments Not Currently 0 (1 standard drink = 0.6 oz pur e alcohol) [facility] Utilities Answer Date Recorded In the past 12 months has e [employer], gas, oil, or water [employer] threatened to shut off services in your [...] equipment (DME). [employer] feed bag Ref# [id number]. Change bag every 24 hours. 03/27/2024 UNABLE [...] CDT Comprehensive Visit Department of Neurology in [place], [place] [address] [place] [address] Cristiane Palacio, GRUPO, C.N.P., D.N.P. [address] [place] [address] Kriss Wharton M.S., [facility] [address] [place] [phone] 08/15/2024 9:00 AM CDT Appointment Department of Radiology, [facility], in [place], [place] [address] [place] [phone] Cristiane Palacio, GRUPO, C.N.P., D.N.P. [address] [place] [phone] Kriss Wharton M.S., [facility] [address] [place] [phone] 08/15/2024 9:45 AM CDT Clinical Support Department of Neurology in [place], [place] [address] [place] [phone] Cristiane Palacio APRN, C.N.P., D.N.P. [address] [place] [phone] Kriss Wharton M.S., [facility] [address] [place] [phone] 08/15/2024 1:00 PM CDT Office Visit Department of Otorhinolaryngology in [place], [place] [address] [place] [phone] Rafal Rankin M.D. [address] [place] [phone] 08/15/2024 2:30 PM CDT Ancillary Procedure Department of Ophthalmology in [place], [place] [address] [place] [phone] Kandace Shankar M.D. [address] [place] [phone] 08/15/2024 3:00 PM CDT Comprehensive Visit Department of Ophthalmology in [place], [place] [address] [place] [phone] Peña Carver M.D. [address] [place] [phone] 08/15/2024 4:15 PM CDT Office Visit Department of Ophthalmology in [place], [place] [address] [place] [phone] Kandace Shankar M.D. [address] [place] [phone] 08/20/2024 3:00 PM CDT Appointment Division of Gastroenterology in [place], [place] [address] [place] [phone] Cristiane Palacio, GRUPO, C.N.P., D.N.P. [address] [place] [phone] 08/22/2024 4:20 PM CDT Telemedicine Division of Gastroenterology in [address] [phone] Swapnil Jaramillo M.D. [address] [place] [phone] 10/22/2024 8:30 AM BPM DEVELOPER Clinical Communication Virtual Review in [place], [place] [address] [place] [phone] 10/25/2024 10:30 AM BPM DEVELOPER Comprehensive Visit Department of Neurology in [place], [place] [address] [place] [phone] Oziel Odonnell M.D. [address] [place] [phone] documented as of this encounter Procedures Procedure Name Priority Date/Time Associated Diagnosis Comments INJECTION BOTOX 07/23/2024 12:56 PM CDT Sialorrhea Case Notes MANAGER SAP at 11:23 documented in this encounter Visit [...] injection documented in this encounter Care Teams Biomass Facilitator Relationship Specialty Start Date End Date Elsewhere, Pcp PCP - General Internal Medicine 02/26/24 documented as of this encounter
--- OUTSIDE RECORDS SUMMARY | 2024-08-10 05:57 | XMS_ITS | Encounter Summary ---
Author Organization [facility] Address [address] [place] [address] Care Team Providers Care Campaign Associate Name Role Phone Elsewhere, Pcp Primary Care Provider Unavailabl e Encounter Details Date Type Department Care Team (Latest Contact Info) Description 08/06/2024 Clinical Communication Department of Otorhinolaryngology in [place], [place] [address] [place] [address] Rafal Rankin M.D. [address] [place] [address] Social History Tobacco Use Types Packs/Day Years [...] your living situation today? I have a [facility] place to live 03/12/2024 Sex and [...] CDT Comprehensive Visit Department of Neurology in [address] [phone] Cristiane Palacio APRN, C.N.P., D.N.P. [address] [place] [phone] Kriss Wharton M.S., CCC-BARIATRIC PROGRAM COORDINATOR [address] [place] [phone] 08/15/2024 9:00 AM CDT Appointment Department of Radiology, [facility], in [place], [place] [address] [place] [phone] Cristiane Palacio APRN, C.N.P., D.N.P. [address] [place] [phone] Kriss Wharton M.S., CCC-BARIATRIC PROGRAM COORDINATOR [address] [place] [phone] 08/15/2024 9:45 AM CDT Clinical Support Department of Neurology in [address] [phone] Cristiane Palacio, GRUPO, C.N.P., D.N.P. [address] [place] [phone] Kriss Wharton M.S., [facility]-BARIATRIC PROGRAM COORDINATOR [address] [place] [phone] 08/15/2024 1:00 PM CDT Office Visit Department of Otorhinolaryngology in [place], [place] [address] [place] [phone] Rafal Rankin M.D. [address] [place] [phone] 08/15/2024 2:30 PM CDT Ancillary Procedure Department of Ophthalmology in [place], [place] [address] [place] [phone] Kandace Shankar M.D. [address] [place] [phone] 08/15/2024 3:00 PM CDT Comprehensive Visit Department of Ophthalmology in [place], [place] [address] [place] [phone] Peña Carver M.D. [address] [place] [phone] 08/15/2024 4:15 PM CDT Office Visit Department of Ophthalmology in [place], [place] [address] [place] [phone] Kandace Shankar M.D. [address] [place] [phone] 08/20/2024 3:00 PM CDT Appointment Division of Gastroenterology in [place], [place] [address] [place] [address] [phone] Cristiane Palacio APRN C.N.P., D.N.P. [address] [place] [phone] 08/22/2024 4:20 PM CDT Telemedicine Division of Gastroenterology in [place], [place] [address] [place] [address] [phone] Swapnil Jaramillo M.D. [address] [place] [address] [phone] 10/22/2024 8:30 AM PHARMACIST ASSISTANT Clinical Communication Virtual Review in [place], [place] 200 [place] [phone] 10/25/2024 10:30 AM PHARMACIST ASSISTANT Comprehensive Visit Department of Neurology in [place], [place] [address] [place] [address] [phone] Oziel Odnonell M.D. [address] [place] [address] [phone] documented as of this encounter Visit Diagnoses Not on filedocumented in this encounter Care Teams Campaign Associate Relationship Specialty Start Date End Date Elsewhere, Pcp PCP - General Internal Medicine 02/26/24 documented as of this encounter
--- OUTSIDE RECORDS SUMMARY | 2024-08-10 05:57 | XMS_ITS | Encounter Summary ---
Author Organization [facility] Address [address] [place] [phone] Care Team Providers Care Labor Gang Supervisor Name Role Phone Elsewhere, Pcp Primary Care Provider Unavailabl e Reason for Referral * Outpatient (Routine) - Closed Specialty Diagnoses / Procedures Referred By Contwaldemar t Referred To Contact Otorhinolaryngology Rafal Rankin M.D. [address] [place] [phone] [facility] Referral ID Status Reason Start Date Expiration Date Visits Re quested Visits Authorized [id number] Closed 07/17/2024 01/16/2026 1 1 Scheduling Instructions Ok to add on at [address] Rankin 07/18/24 Encounter Details Date Type Department Care Team (Late st Contact Info) Description 07/17/2024 Orders Only Department of Otorhinolaryngology in [place], [place] [address] [place] [phone] Rafal Rankin M.D. [address] [place] [phone] Social History Tobacco Use Types Packs/Day Years Used Date Smoking Tobacco: Former Cigarettes Q uit: 1985 Smokeless Tobacco: Never Alcohol Use Standard Drinks/Week Comments Not Currently 0 (1 standard drink = 0.6 oz pur e alcohol) [facility] Utilities Answer Date Recorded In [...] living situation today? I have a [facility] place to live 03/12/2024 Sex [...] CDT Comprehensive Visit Department of Neurology in [place], [place] [address] [place] [phone] Cristiane Palacio APRN, C.N.P., D.N.P. [address] [place] [phone] Kriss Wharton M.S., [facility])-EXECUTIVE COORDINATOR [address] [place] [address] [phone] 08/15/2024 9:00 AM CDT Appointment Department of Radiology, [facility], in [place], [place] [address] [place] [phone] Cristiane Palacio APRN, C.N.P., D.N.P. [address] [place] [phone] Kriss Wharton M.SEdith, [facility])-EXECUTIVE COORDINATOR [address] [place] [address] [phone] 08/15/2024 9:45 AM CDT Clinical Support Department of Neurology in [address] [phone] Cristiane Palacio APRN, C.N.P., D.N.P. [address] [place] [phone] Kriss Wharton M.Chris, [facility])-EXECUTIVE COORDINATOR [address] [place] [address] [phone] 08/15/2024 1:00 PM CDT Office Visit Department of Otorhinolaryngology in [place], [place] [address] [place] [phone] Rafal Rankin M.D. [address] [place] [phone] 08/15/2024 2:30 PM CDT Ancillary Procedure Department of Ophthalmology in [place], [place] [address] [place] [phone] Kandace Shankar M.D. [address] [place] [phone] 08/15/2024 3:00 PM CDT Comprehensive Visit Department of Ophthalmology in [place], [place] [address] [place] [phone] Peña Carver M.D. [address] [place] [phone] 08/15/2024 4:15 PM CDT Office Visit Department of Ophthalmology in [place], [place] [address] [place] [phone] Kandace Shankar M.D. [address] [place] [phone] 08/20/2024 3:00 PM CDT Appointment Division of Gastroenterology in [place], [place] [address] [place] [phone] Cristiane Palacio, GRUPO, C.N.P., D.N.P. [address] [place] [address] [phone] 08/22/2024 4:20 PM CDT Telemedicine Division of Gastroenterology in [place], [place] [address] [place] [address] [phone] Swapnil Jaramillo M.D. [address] [place] [phone] 10/22/2024 8:30 AM LOCAL COORDINATOR Clinical Communication Virtual Review in [place], [place] [address] [place] [phone] 10/25/2024 10:30 AM LOCAL COORDINATOR Comprehensive Visit Department of Neurology in [place], [place] [address] [place] [phone] Oziel Odonnell M.D. [address] [place] [phone] Scheduled Referrals Name Type Priority Associated Diagnoses Order Schedule Otorhinolaryngology office visit (clinic) Outpatient Referral Routine Expected: 07/18/2024, Expires: 10/16/2025 documented as of this encounter Visit Diagnoses Not on filedocumented in this encounter Care Teams Labor Gang Supervisor Relationship Specialty Start Date End Date Elsewhere, Pcp PCP - General Internal Medicine 02/26/24 documented as of this encounter
--- OUTSIDE RECORDS SUMMARY | 2024-08-10 05:57 | XMS_ITS | Referral Summary ---
Author Organization [facility] Address [address] [place] [address] Care Team Providers Care Certified Mortician Name Role Phone Elsewhere, Pcp Primary Care Provider Unavailabl e Source Comments Patient records contain information from all sites at [facility]. For routine questions regarding patient records, call [phone] during business hours, M-F 8:00 AM - 5:00 PM Central Time. Record requests for emergency care only can be directed to [phone] at any time.[facility] Encounters Date Type Department Care Team Description 08/06/2024 Clinical Communication Department of Otorhinolaryngology in [place], [place] [address] [place] [address] Rafal Rankin M.D. 08/06/2024 Orders Only Department of Otorhinolaryngology in [place], [place] [address] [place] [address] Rafal Rankin M.D. 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 07/23/2024 1:12 PM CDT Anesthesia Event [facility] OR [facility] [place] [phone] Tayo Bradford D.O. Higgins, Timon J, M.D. 07/23/2024 10:00 AM CDT - 07/23/2024 11:18 AM CDT Hospital Encounter Department of Radiology, [facility], in [address] [phone] Rafal Rankin M.D. Sialorrhea Discharge Disposition: Home or Self Care 07/23/2024 1:46 PM CDT - 07/23/2024 2:44 PM CDT [facility] [address] [place] [phone] Rafal Rankin M.D. INJECTION BOTOX TO SUBMANDIBULAR GLANDS 50 units total, 25 units into each gland, ULTRASOUND GUIDANCE. 07/23/2024 11:19 AM CDT - 07/23/2024 2:16 PM CDT Hospital Encounter [facility] OR [address] [place] [phone] Rafal Rankin M.D. Discharge Disposition: Home or Self Care 07/18/2024 1:20 AM CDT Ancillary Procedure Department of Otorhinolaryngology 07/18/2024 1:00 PM CDT Office Visit Department of Otorhinolaryngology in [place], [place] [address] [place] [phone] Rafal Rankin M.D. 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 06/25/2024 9:00 AM CDT Telemedicine Department of Otorhinolaryngology in [place], [place] [address] [place] [phone] Rafal Rankin M.D. 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 Scheduling 06/18/2024 Orders Only Division of Endocrinology in [place], [place] [address] [place] [phone] Cristiane Palacio APRN, C.N.P., D.N.P. Dysphagia (Primary Dx) 06/18/2024 Orders Only Division of Endocrinology in [place], [place] [address] [place] [phone] Ankit Medina, R.NEdith Dietary Counseling And Surveillance For Enteral Nutrition (Primary Dx) 06/18/2024 Orders Only Department of Otorhinolaryngology in [place], [place] [address] [place] [phone] Luz Muir R.N. Sialorrhea (Primary Dx) 06/18/2024 Clinical Communication Department of Otorhinolaryngology in [place], [place] [address] [place] [phone] Rafal Rankin M.D. 06/18/2024 1:00 PM CDT Telemedicine Division of Endocrinology in [address] [phone] Stan Hernandez M.D. McKay, Elisa C, APRN, C.N.PEdith, D.N.P. Dysphagia; Stenosis Laryngeal; Pneumonitis Due To Inhalation Of Food And Vomit (HCC) 06/18/2024 10:00 AM CDT Clinical Support Division of Endocrinology in [place], [place] [address] [place] [phone] Stan Hernandez M.D. Neldner, Indra K, R.N. Dysphagia; Stenosis Laryngeal; Pneumonitis Due To Inhalation Of Food And Vomit (HCC) 06/18/2024 9:00 AM CDT Clinical Support Department of Nutrition and Diabetes Education in [place], [place] [address] [place] [phone] Stan Hernandez M.D. Victoria Muir M.S., RDN, LD Dietary Counseling And Surveillance For Enteral Nutrition (Primary Dx); Dysphagia; Stenosis Laryngeal; Pneumonitis Due To Inhalation Of Food And Vomit (HCC); Gastrojejunostomy Percutaneous Status Post 06/17/2024 Orders Only Department of Otorhinolaryngology in [place], [place] [address] [place] [phone] Rafal Rankin M.D. 05/20/2024 Orders Only Department of Ophthalmology in [address] [phone] Kandace Shankar M.D. Diplopia (Primary Dx) 05/20/2024 8:00 AM CDT Comprehensive Visit Department of Ophthalmology in [place], [place] [address] [place] [phone] Kandace Shankar M.D. 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 Traumatic Subarachnoid Hemorrhage Without Loss Of Consciousness Sequela (HCC) 05/17/2024 3:00 PM CDT Ancillary Procedure Department of Ophthalmology in [place], [place] [address] [place] [phone] Kandace Shankar M.D. Traumatic Subarachnoid Hemorrhage Without Loss Of Consciousness Sequela (HCC) 05/15/2024 10:30 AM CDT Clinical Communication Virtual Review in [place], [place] 200 [place] [address] Blood Pressure from Last 3 Months Allergies Active Allergy [...] 1 each daily. durable medical equipment (DME). [employer] feed bag Ref# [id number]. Change bag every 24 hours. 4 Active [...] 0.6 oz pur e alcohol) [facility] Utilities Answer Date Recorded In the [...] CDT Comprehensive Visit Department of Neurology in [place], [place] [address] [place] [phone] Cristiane Palacio APRN, C.N.P., D.N.P. [address] [place] [phone] Kriss Wharton M.S., CCC-INSIDE SALES ADVISOR [address] [place] [phone] 08/15/2024 9:00 AM CDT Appointment Department of Radiology, [facility], in [place], [place] [address] [place] [phone] Cristiane Palacio APRN, C.N.P., D.N.P. [address] [place] [phone] Kriss Wharton M.S., CCC-INSIDE SALES ADVISOR [address] [place] [phone] 08/15/2024 9:45 AM CDT Clinical Support Department of Neurology in [place], [place] [address] [place] [phone] Cristiane Palacio, GRUPO, C.N.P., D.N.P. [address] [place] [phone] Kriss Wharton M.S., [facility]-INSIDE SALES ADVISOR [address] [place], [place] [phone] 08/15/2024 1:00 PM CDT Office Visit Department of Otorhinolaryngology in [place], [place] [address] [place] [phone] Rafal Rankin M.D. [address] [place] [phone] 08/15/2024 2:30 PM CDT Ancillary Procedure Department of Ophthalmology in [place], [place] [address] [place] [phone] Kandace Shankar M.D. [address] [place] [phone] 08/15/2024 3:00 PM CDT Comprehensive Visit Department of Ophthalmology in [place], [place] [address] [place] [phone] Peña Carver M.D. [address] [place] [phone] 08/15/2024 4:15 PM CDT Office Visit Department of Ophthalmology in [place], [place] [address] [place] [phone] Kandace Shankar M.D. [address] [place] [phone] 08/20/2024 3:00 PM CDT Appointment Division of Gastroenterology in [place], [place] [address] [place] [phone] Cristiane Palacio, Brian LOMBARDON.P., D.N.P. [address] [place] [address] [phone] 08/22/2024 4:20 PM CDT Telemedicine Division of Gastroenterology in [place], [place] [address] [place] [phone] Swapnil Jaramillo M.D. [address] [place] [address] [phone] 10/22/2024 8:30 AM MANAGER PROCESS Clinical Communication Virtual Review in [place], [place] [address] [place] [phone] 10/25/2024 10:30 AM MANAGER PROCESS Comprehensive Visit Department of Neurology in [place], [place] [address] [place] [phone] Oziel Odonnell M.D. [address] [place] [address] [phone] Procedures Procedure Name Priority Date/Time Associated Diagnosis Comments US GUIDANCE INTRAOPERATIVE RAD - Routine (most inpatients and all outpatients) 07/23/2024 1:42 PM CDT Sialorrhea INJECTION BOTOX 07/23/2024 12:56 PM CDT Sialorrhea Case Notes AVIATION SUPPORT EQUIPMENT REPAIRER at 11:23 OTORHINOLARYNGOLOGY IMAGE EXAM Routine 07/18/2024 [...] IMAGE EXAM Routine 024 2:55 PM CDT BASIC METABOLIC PANEL, S/P [...] follow up as entered by the sales associate key holder. Notes See note. Kandace Shankar M.D. OPHTH TOMOGRAPHY Performing Organization Address [facility] de Phone Number OPHTHALMOLGY NON-IMAGING ORDERS * Optical Coherence Tomography - Optic Nerve - OU - Both Eyes (05/17/2024 5:29 PM CDT) Narrative OPHTHALMOLOGY IMAGING EXAM - 05/23/2024 1:46 PM CDT OCT device used was [employer] . Right Eye Reliability was good. Average RNFL was 93.00 microns. Ganglion cell layer was 45.00 microns. Left Eye Reliability was good. Average RNFL was 91.00 microns. Ganglion cell layer was 29.00 microns. Notes [facility] See note. Kandace Shankar M.D. OPHTH TOMOGRAPHY Performing Organization Address [facility] de Phone Number [...] RAD IMAGI NG PROCEDURES Performing Organization Address [facility] Co de Phone Number IIMS NA * Automated [...] Kandace Shankar M.D. OPH VISUAL FIEL D OPHTHALMOLOGY IMAGING EXAM * [...] AM CDT 02/28/2024 12:59 AM CDT Kiki Hamilton Vero LOMBARDO C.N.P., M.S.N. LAB BLOOD ADD-ON [facility] [address] [place] [address], [place] DTL [facility] [address] [place] [address] from Last 3 Months or Most Recently Relevant to Health Maintenance Advance Directives For more information, please contact: [phone] Documents on File Type Date Recorded Patient Precision Lathe Operator Expl anation Advance Directives 02/28/2024 2:04 PM Malika Guillen HCPOA/ADVOCATE/AGENT/R EPRESENTATIVE/SURROGAT E * Full Code (Latest Code Status on File) Date Activated Date Inactivated Comments 02/27/2024 12:46 AM 02/28/2024 4:31 PM Question Answer Comments Full Code: Discussed Healthcare Agents on File Name Relationship Healthcare Agent Latasha Guillen Spouse Health Care Agent Malika Bryant Sister First Alternate Health Care Agent Care Teams Certified Mortician Relationship Specialty Start Date End Date Elsewhere, Pcp PCP - General Internal Medicine 02/26/24
--- OUTSIDE RECORDS SUMMARY | 2024-08-10 05:57 | XMS_ITS | Encounter Summary ---
Author Organization [facility] Address [address] [place] [address] Care Team Providers Care Sound Designer Name Role Phone Elsewhere, Pcp Primary Care Provider Unavailabl e Reason for Referral * Outpatient (Routine) - Closed Specialty Diagnoses / Procedures Referred By Karine velasco Referred To Contact Diagnoses Sialorrhea Procedures US Guidance Intraoperative Rafal Rankin M.D. 200 [place] [address] [facility] Referral ID Status Reason Start Date Expiration Date Visits Re quested Visits Authorized [id number] Closed 06/19/2024 06/19/2025 1 1 Reason for Visit * Auth/Cert (Routine) Specialty Diagnoses / Procedures Referred By Karine velasco Referred To Contact Diagnoses Sialorrhea Sialorrhea [K11.7] Procedures AR CHEMODENERV PAROTID SUBMAN INJECTION BOTOX TO SALIVARY GLANDS 100 units total (25 units into each gland), ULTRASOUND GUIDANCE; PROCEED INDICATED Rafal Rankin M.D. 200 [place] [address] Referral ID Status Reason Start Date Expiration Date Visits Re quested Visits Authorized [id number] 1 1 Encounter Details Date Type Department Care Team (Latest Contact Info) Description 07/23/2024 10:00 AM CDT - 07/23/2024 11:18 AM CDT Hospital Encounter Department of Radiology, [facility], in [place], [place] [address] [place] [address] Rafal Rankin M.D. [address] [place] [address] Sialorrhea Discharge Disposition: Home or Self Care Social History Tobacco Use Types Packs/Day Years Used Date Smoking Tobacco: Former Cigarettes Q uit: 1984 Smokeless Tobacco: Never Alcohol Use Standard Drinks/Week Comments Not Currently 0 (1 standard drink = 0.6 oz pur e alcohol) [facility] Utilities Answer Date Recorded In the past 12 months has [facility] Close, gas, oil, or water [employer] threatened to shut off services in your [...] equipment (DME). Anival Kelley feed bag Ref# [id number]. Change bag every 24 hours. 03/27/2024 UNABLE TO FIND 1 each as needed (5 times daily for flushes as needed.). durable medical equipment (DME) 12ml enteral syringe [employer] with ENFIT CONNECTOR. 03/19/2024 documented as of this encounter Plan of Treatment Upcoming Encounters Date Type Department Care Team (Latest Contact Info) Description 08/15/2024 8:00 AM CDT Comprehensive Visit Department of Neurology in [address] [phone] Cristiane Palacio APRN, C.N.P., D.N.P. [address] [place] [phone] Kriss Wharton M.SEdith, [facility]-MANAGER STATISTICAL PROGRAMMING [address] [place] [phone] 08/15/2024 9:00 AM CDT Appointment Department of Radiology, [facility], in [place], [place] [address] [place] [address] [phone] Cristiane Palacio APRN, C.N.P., D.N.P. [address] [place] [address] [phone] Kriss Wharton M.S., [facility]ER CLINIC-MANAGER STATISTICAL PROGRAMMING [address] [place] [address] [phone] 08/15/2024 9:45 AM CDT Clinical Support Department of Neurology in [address] [phone] Cristiane Palacio APRN, C.N.P., D.N.P. [address] [place] [phone] Kriss Wharton M.S., CCC-MANAGER STATISTICAL PROGRAMMING [address] [place] [address] [phone] 08/15/2024 1:00 PM CDT Office Visit Department of Otorhinolaryngology in [place], [place] [address] [place] [phone] Rafal Rankin M.D. [address] [place] [phone] 08/15/2024 2:30 PM CDT Ancillary Procedure Department of Ophthalmology in [place], [place] [address] [place] [address] [phone] Kandace Shankar M.D. [address] [place] [phone] 08/15/2024 3:00 PM CDT Comprehensive Visit Department of Ophthalmology in [place], [place] [address] [place] [phone] Peña Carver M.D. [address] [place] [address] [phone] 08/15/2024 4:15 PM CDT Office Visit Department of Ophthalmology in [place], [place] [address] [place] [phone] Kandace Shankar M.D. [address] [place] [phone] 08/20/2024 3:00 PM CDT Appointment Division of Gastroenterology in [place], [place] [address] [place] [address] [phone] Cristiane Palacio, GRUPO, C.N.P., D.N.P. [address] [place] [address] [phone] 08/22/2024 4:20 PM CDT Telemedicine Division of Gastroenterology in [place], [place] [address] [place] [phone] Swapnil Jaramillo M.D. [address] [place] [phone] 10/22/2024 8:30 AM STAIN APPLICATOR Clinical Communication Virtual Review in [place], [place] 200 [place] [phone] 10/25/2024 10:30 AM STAIN APPLICATOR Comprehensive Visit Department of Neurology in [place], [place] [address] [place] [phone] Oziel Odonnell M.D. [address] [place] [phone] documented as of this encounter Procedures Procedure [...] Sialorrhea documented in this encounter Care Teams Sound Designer Relationship Specialty Start Date End Date Elsewhere, Pcp PCP - General Internal Medicine 02/26/24 documented as of this encounter
--- OUTSIDE RECORDS SUMMARY | 2024-08-10 05:57 | XMS_ITS | Encounter Summary ---
Author Organization [facility] Address [address] [place] [address] Care Team Providers Care Community Specialist Name Role Phone Elsewhere, Pcp Primary Care Provider Unavailabl e Reason for Visit * Auth/Cert (Routine) Specialty Diagnoses / Procedures Referred By Contwaldemar t Referred To Contact Diagnoses Sialorrhea Sialorrhea [K11.7] Procedures [place] CHEMODENERV PAROTID SUBMAN INJECTION BOTOX TO SALIVARY GLANDS 100 units total (25 units into each gland), ULTRASOUND GUIDANCE; PROCEED INDICATED Rafal Rankin M.D. 200 [place] [address] Referral ID Status Reason Start Date Expiration Date Visits Re quested Visits Authorized [id number] 1 1 Encounter Details Date Type Department Care Team (Latest Contact Info) Description 07/23/2024 11:19 AM CDT - 07/23/2024 2:16 PM CDT Hospital Encounter [facility]IN OR [address] [place] [address] Rafal Rankin M.D. [address] [place] [phone] Discharge Disposition: Home or Self Care Social [...] equipment (DME). Anival Kelley feed bag Ref# [id number]. Change bag every 24 hours. 03/27/2024 UNABLE [...] CDT Comprehensive Visit Department of Neurology in [place], [place] 200 [place] [phone] Cristiane Palacio APRN, C.N.P., D.N.P. [address] [place] [phone] Kriss Wharton M.S., [facility] [address] [place] [phone] 08/15/2024 9:00 AM CDT Appointment Department of Radiology, [facility], in [place], [place] [address] [place] [phone] Cristiane Palacio APRN, C.N.P., D.N.P. [address] [place] [phone] Kriss Wharton M.S., [facility] [address] [place] [phone] 08/15/2024 9:45 AM CDT Clinical Support Department of Neurology in [address] [phone] Cristiane Palacio APRN, C.N.P., D.N.P. [address] [place] [phone] Kriss Wharton M.S., [facility] [address] [place] [phone] 08/15/2024 1:00 PM CDT Office Visit Department of Otorhinolaryngology in [address] [phone] Rafal Rankin M.D. [address] [place] [phone] 08/15/2024 2:30 PM CDT Ancillary Procedure Department of Ophthalmology in [place], [place] [address] [place] [phone] Kandace Shankar M.D. [address] [place] [phone] 08/15/2024 3:00 PM CDT Comprehensive Visit Department of Ophthalmology in [place], [place] [address] [place] [phone] Peña Carver M.D. [address] [place] [phone] 08/15/2024 4:15 PM CDT Office Visit Department of Ophthalmology in [place], [place] [address] [place] [phone] Kandace Shankar M.D. [address] [place] [phone] 08/20/2024 3:00 PM CDT Appointment Division of Gastroenterology in [place], [place] [address] [place] [phone] Cristiane Palacio, GRUPO, C.N.P., D.N.P. [address] [place] [phone] 08/22/2024 4:20 PM CDT Telemedicine Division of Gastroenterology in [place], [place] [address] [place] [phone] Swapnil Jaramillo M.D. [address] [place] [phone] 10/22/2024 8:30 AM MILITARY EQUIPMENT SPECIALIST Clinical Communication Virtual Review in [place], [place] 200 [place] [phone] 10/25/2024 10:30 AM MILITARY EQUIPMENT SPECIALIST Comprehensive Visit Department of Neurology in [place], [place] [address] [place] [phone] Oziel Odonnell M.D. [address] [place] [phone] documented as of this encounter Procedures Procedure Name Priority Date/Time Associated Diagnosis Comments INJECTION BOTOX 07/23/2024 12:56 PM CDT Sialorrhea Case Notes PURE PAK MACHINE OPERATOR at 11:23 documented in this encounter [...] injection documented in this encounter Care Teams Community Specialist Relationship Specialty Start Date End Date Elsewhere, Pcp PCP - General Internal Medicine 02/26/24 documented as of this encounter
--- OUTSIDE RECORDS SUMMARY | 2024-08-10 05:57 | XMS_ITS | Encounter Summary ---
Author Organization [facility] Address [address] [place] [address] Care Team Providers Care Package Pick Up Name Role Phone Elsewhere, Pcp Primary Care Provider Unavailabl e Reason for Visit * Auth/Cert (Routine) Specialty Diagnoses / Procedures Referred By Contwaldemar t Referred To Contact Diagnoses Sialorrhea Sialorrhea [K11.7] Procedures ID CHEMODENERV PAROTID SUBMAN INJECTION BOTOX TO SALIVARY GLANDS 100 units total (25 units into each gland), ULTRASOUND GUIDANCE; PROCEED INDICATED Rafal Rankin M.D. [address] [place] [phone] Referral ID Status Reason Start Date Expiration Date Visits Re quested Visits Authorized [id number] 1 1 Encounter Details Date Type Department Care Team (Late st Contact Info) Description 07/23/2024 1:12 PM CDT Anesthesia Event [facility] MAIN OR [address] [place] [phone] Tayo Bradford D.O. [address] [place] [phone] Alan Mchugh M.D. [address] [place] [phone] Anesthesia Record Procedure Summary Procedure Name Responsible [...] In the past 12 months has e [employer], gas, oil, or water [employer] threatened to shut off services in your [...] Procedure Summary Date: 07/23/24 Room / Location: [place] [address] / [facility] in [place], [place] Anesthesia Start: 1312 Anesthesia Stop: 1343 [...] Sialorrhea [K11.7] Pre-op diagnosis: Sialorrhea [K11.7]. Location: [address] 01 [facility] / [facility] in [place], [place] Providers: Rafal Rankin M.D. Pertinent components [...] patient / legal guardian, or through an machine sign writer; patient evaluated and approved for anesthesia / sedation The use of blood products not discussed Approval to Proceed: approved for anesthesia documented in this encounter Plan of Treatment Upcoming Encounters Date Type Department Care Team (Latest Contact Info) Description 08/15/2024 8:00 AM CDT Comprehensive Visit Department of Neurology in [place], [place] [address] [place] [phone] Cristiane Palacio, GRUPO, C.N.P., D.N.P. [address] [place] [phone] Kriss Wharton M.S., CCC-LEGAL COMPLIANCE OFFICER [address] [place] [phone] 08/15/2024 9:00 AM CDT Appointment Department of Radiology, [facility], in [place], [place] [address] [place] [phone] Cristiane Palacio APRN, C.N.P., D.N.P. [address] [place] [phone] Kriss Wharton M.S., CCC-LEGAL COMPLIANCE OFFICER [address] [place] [phone] 08/15/2024 9:45 AM CDT Clinical Support Department of Neurology in [place], [place] [address] [place] [phone] Cristiane Palacio APRN, C.N.PEdith, D.N.P. [address] [place] [phone] Kriss Wharton M.S., CCC-LEGAL COMPLIANCE OFFICER [address] [place] [phone] 08/15/2024 1:00 PM CDT Office Visit Department of Otorhinolaryngology in [place], [place] [address] [place] [phone] Rafal Rankin M.D. [address] [place] [phone] 08/15/2024 2:30 PM CDT Ancillary Procedure Department of Ophthalmology in [place], [place] [address] [place] [phone] Kandace Shankar M.D. [address] [place] [phone] 08/15/2024 3:00 PM CDT Comprehensive Visit Department of Ophthalmology in [place], [place] [address] [place] [phone] Peña Carver M.D. [address] [place] [phone] 08/15/2024 4:15 PM CDT Office Visit Department of Ophthalmology in [place], [place] [address] [place] [phone] Kandace Shankar M.D. [address] [place] [address] [phone] 08/20/2024 3:00 PM CDT Appointment Division of Gastroenterology in [place], [place] [address] [place] [phone] Cristiane Palacio APRN, C.N.P., D.N.P. [address] [place] [phone] 08/22/2024 4:20 PM CDT Telemedicine Division of Gastroenterology in [place], [place] [address] [place] [phone] Swapnil Jaramillo M.D. [address] [place] [phone] 10/22/2024 8:30 AM DIGITAL ART DIRECTOR Clinical Communication Virtual Review in [place], [place] 200 [place] [phone] 10/25/2024 10:30 AM DIGITAL ART DIRECTOR Comprehensive Visit Department of Neurology in [place], [place] [address] [place] [phone] Oziel Odonnell M.D. [address] [place] [phone] documented as of this encounter Visit Diagnoses [...] mL/hr documented in this encounter Care Teams Package Pick Up Relationship Specialty Start Date End Date Elsewhere, Pcp PCP - General Internal Medicine 02/26/24 documented as of this encounter
--- OUTSIDE RECORDS SUMMARY | 2024-08-10 05:57 | XMS_ITS | Encounter Summary ---
Author Organization [facility] Address [address] [place] [address] Care Team Providers Care Care Management Associate Name Role Phone Elsewhere, Pcp Primary Care Provider Unavailabl e Reason for Visit * Reason Comments Scheduling Encounter Details Date Type Department Care Team (Late st Contact Info) Description 06/18/2024 Documentation Division of Endocrinology in [place], [place] [address] [place] [address] Imelda Escamilla REdithN. Scheduling Social History Tobacco [...] your living situation today? I have a [facility] place to live 03/12/2024 Sex [...] a 30 minute slot, no anesthesia at --[facility], any complex doctor to do. Mona [...] CDT Comprehensive Visit Department of Neurology in [address] [phone] Cristiane Palacio APRN, C.N.P., D.N.P. [address] [place] [phone] Kriss Wharton M.Chris, CCC-COSMETIC MAKER [address] [place] [phone] 08/15/2024 9:00 AM CDT Appointment Department of Radiology, [facility], in [address] [phone] Cristiane Palacio APRN, C.N.P., D.N.P. [address] [place] [phone] Kriss Wharton M.S., CCC-COSMETIC MAKER [address] [place] [address] [phone] 08/15/2024 9:45 AM CDT Clinical Support Department of Neurology in [address] [phone] Cristiane Palacio APRN, C.N.P., D.N.P. [address] [place] [address] [phone] Kriss Wharton M.S., CCC-COSMETIC MAKER [address] [place] [phone] 08/15/2024 1:00 PM CDT Office Visit Department of Otorhinolaryngology in [place], [place] [address] [place] [phone] Rafal Rankin M.D. [address] [place] [phone] 08/15/2024 2:30 PM CDT Ancillary Procedure Department of Ophthalmology in [place], [place] [address] [place] [phone] Kandace hSankar M.D. [address] [place] [phone] 08/15/2024 3:00 PM CDT Comprehensive Visit Department of Ophthalmology in [place], [place] [address] [place] [phone] Peña Carver M.D. [address] [place] [phone] 08/15/2024 4:15 PM CDT Office Visit Department of Ophthalmology in [place], [place] [address] [place] [phone] Kandace Shankar M.D. [address] [place] [phone] 08/20/2024 3:00 PM CDT Appointment Division of Gastroenterology in [place], [place] [address] [place] [address] [phone] Cristiane Palacio, AGRICULTURAL LABOR CAMP MANAGER, C.N.P., D.N.P. [address] [place] [phone] 08/22/2024 4:20 PM CDT Telemedicine Division of Gastroenterology in [place], [place] [address] [place] [phone] Swapnil Jaramillo M.D. [address] [place] [phone] 10/22/2024 8:30 AM OSTOMY RN Clinical Communication Virtual Review in [place], [place] 200 [place] [phone] 10/25/2024 10:30 AM OSTOMY RN Comprehensive Visit Department of Neurology in [place], [place] [address] [place] [phone] Oziel Odonnell M.D. [address] [place] [address] [phone] documented as of this encounter Visit Diagnoses Not on filedocumented in this encounter Care Teams Care Management Associate Relationship Specialty Start Date End Date Elsewhere, Pcp PCP - General Internal Medicine 02/26/24 documented as of this encounter
--- OUTSIDE RECORDS SUMMARY | 2024-08-10 05:57 | XMS_ITS | Encounter Summary ---
Author Organization [facility] Address [address] [place] [phone] Care Team Providers Care Storeroom Clerk Name Role Phone Elsewhere, Pcp Primary Care Provider Unavailabl e Reason for Visit * Outpatient (Routine) - Closed Specialty Diagnoses / Procedures Referred By Karine t Referred To Contact Otorhinolaryngology Rafal Rankin M.D. [address] [place] [address] [facility] Referral ID Status Reason Start Date Expiration Date Visits Re quested Visits Authorized [id number] Closed 06/17/2024 12/17/2025 1 1 Encounter Details Date Type Department Care Team (Latest Contact Info) Description 06/25/2024 9:00 AM CDT Telemedicine Department of Otorhinolaryngology in [place], [place] [address] [place] [phone] Rafal Rankin M.D. [address] [place] [phone] Sialorrhea (Primary Dx); Dysphagia; Traumatic Subarachnoid Hemorrhage [...] Rankin M.D. - 06/25/2024 9:00 AM CDT [facility] VIRTUAL VISIT The patient was present for a consult via real-time video technology by Dr. Rankin on 06/25/24 in [facility] to the patient in the patient's [...] CDT Comprehensive Visit Department of Neurology in [address] [phone] Cristiane Palacio APRN, C.N.P., D.N.P. [address] [place] [phone] Kriss Wharton M.S., CCC-SPRAY I PAINTER [address] [place] [phone] 08/15/2024 9:00 AM CDT Appointment Department of Radiology, [facility], in [address] [phone] Cristiane Palacio APRN, C.N.P., D.N.P. [address] [place] [phone] Kriss Wharton M.S., CCC-SPRAY I PAINTER [address] [place] [phone] 08/15/2024 9:45 AM CDT Clinical Support Department of Neurology in [address] [phone] Cristiane Palacio, GRUPO C.N.P., D.N.P. [address] [place] [phone] Kriss Wharton M.S., [facility] [address] [place] [address] [phone] 08/15/2024 1:00 PM CDT Office Visit Department of Otorhinolaryngology in [place], [place] [address] [place] [phone] Rafal Rankin M.D. [address] [place] [phone] 08/15/2024 2:30 PM CDT Ancillary Procedure Department of Ophthalmology in [place], [place] [address] [place] [phone] Kandace Shankar M.D. [address] [place] [phone] 08/15/2024 3:00 PM CDT Comprehensive Visit Department of Ophthalmology in [place], [place] [address] [place] [phone] Peña Carver M.D. [address] [place] [phone] 08/15/2024 4:15 PM CDT Office Visit Department of Ophthalmology in [place], [place] [address] [place] [phone] Kandace Shankar M.D. [address] [place] [phone] 08/20/2024 3:00 PM CDT Appointment Division of Gastroenterology in [place], [place] [address] [place] [phone] Cristiane Palacio APRN, C.N.P., D.N.P. [address] [place] [address] [phone] 08/22/2024 4:20 PM CDT Telemedicine Division of Gastroenterology in [place], [place] [address] [place] [address] [phone] Swapnil Jaramillo M.D. [address] [place] [address] [phone] 10/22/2024 8:30 AM MANAGER OF QUALITY Clinical Communication Virtual Review in [place], [place] 200 [place] [phone] 10/25/2024 10:30 AM MANAGER OF QUALITY Comprehensive Visit Department of Neurology in [place], [place] [address] [place] [address] [phone] Oziel Odonnell M.D. [address] [place] [address] [phone] documented as of this encounter Visit Diagnoses Diagnosis Sialorrhea- Primary Dysphagia Traumatic Subarachnoid Hemorrhage Without Loss Of Consciousness Sequela (HCC) Pneumonitis Due To Inhalation Of Food And Vomit (HCC) documented in this encounter Care Teams Storeroom Clerk Relationship Specialty Start Date End Date Elsewhere, Pcp PCP - General Internal Medicine 02/26/24 documented as of this encounter
--- OUTSIDE RECORDS SUMMARY | 2024-08-10 05:57 | XMS_ITS | Encounter Summary ---
Author Organization [facility] Address [address] [place] [address] Care Team Providers Care Spinning Bath Patroller Name Role Phone Elsewhere, Pcp Primary Care Provider Unavailabl e Reason for Referral * Outpatient (Routine) - Authorized Specialty Diagnoses / Procedures Referred By Contac t Referred To Contact Neurology Diagnoses Traumatic Subarachnoid Hemorrhage Without Loss Of Consciousness Sequela (HCC) Rafal Rankin M.D. 200 [place] [address] [facility] Referral ID Status Reason Start Date Expiration Date V isits Requested Visits Authorized [id number] Authorized 08/06/2024 02/05/2026 1 1 Encounter Details Date Type Department Care Team (Latest Contact Info) Description 08/06/2024 Orders Only Department of Otorhinolaryngology in [place], [place] [address] [place] [phone] Rafal Rankin M.D. [address] [place] [phone] Traumatic Subarachnoid Hemorrhage Without Loss Of Consciousness Sequela (HCC) (Primary Dx) Social History Tobacco Use Types Packs/Day Years Used Date Smoking Tobacco: Former Cigarettes Q uit: 1985 Smokeless Tobacco: Never Alcohol Use Standard Drinks/Week Comments Not Currently 0 (1 standard drink = 0.6 oz pur e alcohol) [facility] Utilities Answer Date Recorded In the [...] your living situation today? I have a [facility] place to live 03/12/2024 Sex and [...] CDT Comprehensive Visit Department of Neurology in [place], [place] [address] [place] [phone] Cristiane Palacio APRN, C.N.P., D.N.P. [address] [place] [phone] Kriss Wharton M.S., [facility]ER SYSTEMS CONSULTANT [address] [place] [address] [phone] 08/15/2024 9:00 AM CDT Appointment Department of Radiology, [facility], in [place], [place] [address] [place] [phone] Cristiane Palacio APRN, C.N.P., D.N.P. [address] [place] [phone] Kriss Wharton M.S., [facility]S CONSULTANT [address] [place] [phone] 08/15/2024 9:45 AM CDT Clinical Support Department of Neurology in [place], [place] [address] [place] [phone] Cristiane Palacio APRN, C.N.P., D.N.P. [address] [place] [phone] Kriss Wharton M.S., [facility] CONSULTANT [address] [place] [phone] 08/15/2024 1:00 PM CDT Office Visit Department of Otorhinolaryngology in [place], [place] [address] [place] [phone] Rafal Rankin M.D. [address] [place] [phone] 08/15/2024 2:30 PM CDT Ancillary Procedure Department of Ophthalmology in [place], [place] [address] [place] [phone] Kandace Shankar M.D. [address] [place] [phone] 08/15/2024 3:00 PM CDT Comprehensive Visit Department of Ophthalmology in [place], [place] [address] [place] [phone] Peña Carver M.D. [address] [place] [phone] 08/15/2024 4:15 PM CDT Office Visit Department of Ophthalmology in [place], [place] [address] [place] [phone] Kandace Shankar M.D. [address] [place] [phone] 08/20/2024 3:00 PM CDT Appointment Division of Gastroenterology in [place], [place] [address] [place] [phone] Cristiane Palacio, GRUPO, C.N.P., D.N.P. [address] [place] [address] [phone] 08/22/2024 4:20 PM CDT Telemedicine Division of Gastroenterology in [place], [place] [address] [place] [address] [phone] Swapnil Jaramillo M.D. [address] [place] [phone] 10/22/2024 8:30 AM LOAN SECRETARY Clinical Communication Virtual Review in [place], [place] 200 [place] [phone] 10/25/2024 10:30 AM LOAN SECRETARY Comprehensive Visit Department of Neurology in [place], [place] [address] [place] [phone] Oziel Odonnell M.D. [address] [place] [phone] Scheduled Referrals Name Type Priority Associated Diagnoses Orde r Schedule Neurology - Cerebrovascular consult (clinic) Outpatient Referral Routine Traumatic Subarachnoid Hemorrhage Without Loss Of Consciousness Sequela (HCC) Expected: 08/06/2024, Expires: 11/05/2025 documented as of this encounter Visit Diagnoses Diagnosis Traumatic Subarachnoid Hemorrhage Without Loss Of Consciousness Sequela (HCC)- Primary documented in this encounter Care Teams Spinning Bath Patroller Relationship Specialty Start Date End Date Elsewhere, Pcp PCP - General Internal Medicine 02/26/24 documented as of this encounter
--- OUTSIDE RECORDS SUMMARY | 2024-08-10 05:57 | XMS_ITS ---
Author Organization [facility] Address [address] [place] [address] Care Team Providers Care Grease Monkey Name Role Phone Unavailable Unavailable Unavailable Surgery Details Not on file Complications Check Surgery Details section. Procedure Estimated Blood Loss Check Surgery Details section. Procedure Findings Check Surgery Details section. Procedure Specimens Taken Check Surgery Details section.
--- OUTSIDE RECORDS SUMMARY | 2024-08-10 05:57 | XMS_ITS | Encounter Summary ---
Author Organization [facility] Address [address] [place] [address] Care Team Providers Care Electrical Maintenance Mechanic Name Role Phone Elsewhere, Pcp Primary [...] In the past 12 months has e [employer], gas, oil, or water [employer] threatened to shut off services in your [...] your living situation today? I have a [facility] place to live 03/12/2024 Sex and [...] CDT Comprehensive Visit Department of Neurology in [place], [place] 200 [place] [phone] Cristiane Palacio, GRUPO, C.N.P., D.N.P. [address] [place] [phone] Kriss Wharton M.S., [facility] [address] [place] [address] [phone] 08/15/2024 9:00 AM CDT Appointment Department of Radiology, [facility], in [place], [place] [address] [place] [phone] Cristiane Palacio APRN, C.N.P., D.N.P. [address] [place] [phone] Kriss Wharton M.S., CCC-JET INSPECTOR [address] [place] [phone] 08/15/2024 9:45 AM CDT Clinical Support Department of Neurology in [address] [phone] Cristiane Palacio APRN, C.N.P., D.N.P. [address] [place] [phone] Kriss Wharton M.S., CCC-JET INSPECTOR [address] [place] [phone] 08/15/2024 1:00 PM CDT Office Visit Department of Otorhinolaryngology in [address] [phone] Rafal Rankin M.D. [address] [place] [phone] 08/15/2024 2:30 PM CDT Ancillary Procedure Department of Ophthalmology in [address] [phone] Kandace Shankar M.D. [address] [place] [phone] 08/15/2024 3:00 PM CDT Comprehensive Visit Department of Ophthalmology in [address] [phone] Peña Carver M.D. [address] [place] [phone] 08/15/2024 4:15 PM CDT Office Visit Department of Ophthalmology in [place], [place] [address] [place] [phone] Kandace Shankar M.D. [address] [place] [phone] 08/20/2024 3:00 PM CDT Appointment Division of Gastroenterology in [place], [place] [address] [place] [phone] Cristiane Palacio APRN, C.N.P., D.N.P. [address] [place] [phone] 08/22/2024 4:20 PM CDT Telemedicine Division of Gastroenterology in [place], [place] [address] [place] [phone] Swapnil Jaramillo M.D. [address] [place] [phone] 10/22/2024 8:30 AM RECLAIMER Clinical Communication Virtual Review in [place], [place] 200 [place] [address] 10/25/2024 10:30 AM RECLAIMER Comprehensive Visit Department of Neurology in [place], [place] [address] [place] [phone] Oziel Odonnell M.D. [address] [place] [phone] documented as of this encounter Procedures Procedure [...] on filedocumented in this encounter Care Teams Electrical Maintenance Mechanic Relationship Specialty Start Date End Date Elsewhere, Pcp PCP - General Internal Medicine 02/26/24 documented as of this encounter
--- OUTSIDE RECORDS SUMMARY | 2024-08-10 05:57 | XMS_ITS | Encounter Summary ---
Author Organization [facility] Address [address] [place] [address] Care Team Providers Care Retail Specialist Name Role Phone Elsewhere, Pcp Primary Care Provider Unavailabl e Reason for Visit * Outpatient (Routine) - Closed Specialty Diagnoses / Procedures Referred By Karine t Referred To Contact Otorhinolaryngology Rafal Rankin M.D. [address] [place] [address] [facility] Referral ID Status Reason Start Date Expiration Date Visits Re quested Visits Authorized [id number] Closed 07/17/2024 01/16/2026 1 1 Encounter Details Date Type Department Care Team (Latest Contact Info) Description 07/18/2024 1:00 PM CDT Office Visit Department of Otorhinolaryngology in [place], [place] [address] [place] [phone] Rafal Rankin M.D. [address] [place] [phone] Paralysis Vocal Cord Bilateral Complete (Primary Dx); [...] has e electric, gas, oil, or water [email or web address] threatened to shut off services in your [...] living situation today? I have a [facility] place to live 03/12/2024 Sex and Gender Information Value Date Recorded Sex Assigned at Male 03/12/2024 1:38 PM CDT Gender Identity Male 03/12/2024 1:38 PM CDT Sexual Orientation Straight 03/12/2024 1: 38 PM CDT documented as of this encounter Progress Notes * Rafal Rankin M.D. - 07/18/2024 1:00 PM CDT [facility] CHIEF COMPLAINT/PURPOSE OF VISIT: Follow [...] returns after seeing Dr. Cervantes yesterday at [facility]. Mood was a little down today [...] Comprehensive Visit Department of Neurology in [address] [phone] Cristiane Palacio APRN, C.N.P., D.N.P. [address] [place] [phone] Kriss Wharton M.S., CCC-STENCILING MACHINE TENDER [address] [place] [phone] 08/15/2024 9:00 AM CDT Appointment Department of Radiology, [facility], in [address] [phone] Cristiane Palacio APRN, C.N.P., D.N.P. [address] [place] [phone] Kriss Wharton M.S., CCC-STENCILING MACHINE TENDER [address] [place] [phone] 08/15/2024 9:45 AM CDT Clinical Support Department of Neurology in [address] [phone] Cristiane Palacio APRN, C.N.P., D.N.P. [address] [place] [phone] Kriss Wharton M.S., [facility]-STENCILING MACHINE TENDER [address] [place] [phone] 08/15/2024 1:00 PM CDT Office Visit Department of Otorhinolaryngology in [place], [place] [address] [place] [phone] Rafal Rankin M.D. [address] [place] [phone] 08/15/2024 2:30 PM CDT Ancillary Procedure Department of Ophthalmology in [place], [place] [address] [place] [phone] Kandace Shankar M.D. [address] [place] [phone] 08/15/2024 3:00 PM CDT Comprehensive Visit Department of Ophthalmology in [place], [place] [address] [place] [phone] Peña Carver M.D. [address] [place] [phone] 08/15/2024 4:15 PM CDT Office Visit Department of Ophthalmology in [place], [place] [address] [place] [phone] Kandace Shankar M.D. [address] [place] [phone] 08/20/2024 3:00 PM CDT Appointment Division of Gastroenterology in [place], [place] [address] [place] [address] [phone] Cristiane Palacio APRN, C.N.P., CarlyN.P. [address] [place] [address] [phone] 08/22/2024 4:20 PM CDT Telemedicine Division of Gastroenterology in [place], [place] [address] [place] [phone] Swapnil Jaramillo M.D. [address] [place] [phone] 10/22/2024 8:30 AM GEOSPATIAL APPLICATIONS DEVELOPER Clinical Communication Virtual Review in [place], [place] 200 [place] [phone] 10/25/2024 10:30 AM GEOSPATIAL APPLICATIONS DEVELOPER Comprehensive Visit Department of Neurology in [place], [place] [address] [place] [phone] Oziel Odonnell M.D. [address] [place] [phone] documented as of this encounter Visit Diagnoses Diagnosis Paralysis Vocal Cord Bilateral Complete- Primary Sialorrhea Traumatic Subarachnoid Hemorrhage Without Loss Of Consciousness Sequela (HCC) documented in this encounter Care Teams Retail Specialist Relationship Specialty Start Date End Date Elsewhere, Pcp PCP - General Internal Medicine 02/26/24 documented as of this encounter
--- OUTSIDE RECORDS SUMMARY | 2024-08-10 05:58 | XMS_ITS | Encounter Summary ---
Author Organization [facility] Address [address] [place] [address] Care Team Providers Care Trailer Rental Clerk Name Role Phone Elsewhere, Pcp Primary Care Provider Unavailabl e Encounter Details Date Type Department Care Team (Latest Contact Info) Description 05/17/2024 4:30 PM CDT Ancillary Procedure Department of Ophthalmology in [place], [place] [address] [place] [address] Kandace Shankar M.D. 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 I have a [facility] place to live 03/12/2024 Sex [...] CDT Comprehensive Visit Department of Neurology in [place], [place] [address] [place] [address] PalacioCristiane Bragg APRN C.N.P., D.N.P. [address] [place] [phone] Kriss Wharton M.S., [facility] [address] [place] [phone] 08/15/2024 9:00 AM CDT Appointment Department of Radiology, [facility], in [place], [place] [address] [place] [phone] Cristiane Palacio APRN C.N.P., D.N.P. [address] [place] [phone] Kriss Wharton, MBree, [facility] [address] [place] [phone] 08/15/2024 9:45 AM CDT Clinical Support Department of Neurology in [address] [phone] Cristiane Palacio APRN, C.N.P., D.N.P. [address] [place] [phone] Kriss Wharton, M.SEdith, [facility] [address] [place] [phone] 08/15/2024 1:00 PM CDT Office Visit Department of Otorhinolaryngology in [place], [place] [address] [place] [phone] Rafal Rankin M.D. [address] [place] [phone] 08/15/2024 2:30 PM CDT Ancillary Procedure Department of Ophthalmology in [place], [place] [address] [place] [phone] TaKandace haque M.D. [address] [place] [phone] 08/15/2024 3:00 PM CDT Comprehensive Visit Department of Ophthalmology in [place], [place] [address] [place] [phone] Peña Carver M.D. [address] [place] [address] [phone] 08/15/2024 4:15 PM CDT Office Visit Department of Ophthalmology in [place], [place] [address] [place] [phone] Kandace Shankar M.D. [address] [place] [phone] 08/20/2024 3:00 PM CDT Appointment Division of Gastroenterology in [place], [place] [address] [place] [phone] Cristiane Palacio, GRUPO, C.N.P., D.N.P. [address] [place] [phone] 08/22/2024 4:20 PM CDT Telemedicine Division of Gastroenterology in [place], [place] [address] [place] [phone] Swapnil Jaramillo M.D. [address] [place] [phone] 10/22/2024 8:30 AM DISTRIBUTION FIELD ENGINEER Clinical Communication Virtual Review in [place], [place] 200 [place] [phone] 10/25/2024 10:30 AM DISTRIBUTION FIELD ENGINEER Comprehensive Visit Department of Neurology in [place], [place] [address] [place] [phone] Oziel Odonnell M.D. [address] [place] [phone] documented as of this encounter Procedures Procedure [...] 1:46 PM CDT OCT device used was [employer] . Right Eye Reliability was good. Average RNFL was 93.00 microns. Ganglion cell layer was 45.00 microns. Left Eye Reliability was good. Average RNFL was 91.00 microns. Ganglion cell layer was 29.00 microns. Notes [facility] See note. Kandace Shankar M.D. 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
--- OUTSIDE RECORDS SUMMARY | 2024-08-10 05:58 | XMS_ITS | Encounter Summary ---
Author Organization [facility] Address [address] [place] [address] Care Team Providers Care Brick Offbearer Name Role Phone Elsewhere, Pcp Primary Care Provider Unavailabl e Encounter Details Date Type Department Care Team (Latest Contact Info) Description 05/17/2024 3:00 PM CDT Ancillary Procedure Department of Ophthalmology in [place], [place] [address] [place] [address] Kandace Shankar M.D. 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 I have a [facility] place to live 03/12/2024 Sex and [...] CDT Comprehensive Visit Department of Neurology in [place], [place] [address] [place] [address] PalacioCristiane Bragg APRN C.N.P., D.N.P. [address] [place] [phone] Kriss Wharton M.S., [facility] [address] [place] [phone] 08/15/2024 9:00 AM CDT Appointment Department of Radiology, [facility], in [place], [place] [address] [place] [phone] Cristiane Palacio APRN C.N.P., D.N.P. [address] [place] [phone] Kriss Wharton, MBree, [facility] [address] [place] [phone] 08/15/2024 9:45 AM CDT Clinical Support Department of Neurology in [address] [phone] Cristiane Palacio APRN, C.N.P., D.N.P. [address] [place] [phone] Kriss Wharton, M.SEdith, [facility] [address] [place] [phone] 08/15/2024 1:00 PM CDT Office Visit Department of Otorhinolaryngology in [place], [place] [address] [place] [phone] Rafal Rankin M.D. [address] [place] [phone] 08/15/2024 2:30 PM CDT Ancillary Procedure Department of Ophthalmology in [place], [place] [address] [place] [phone] TaKandace haque M.D. [address] [place] [phone] 08/15/2024 3:00 PM CDT Comprehensive Visit Department of Ophthalmology in [place], [place] [address] [place] [phone] Peña Carver M.D. [address] [place] [address] [phone] 08/15/2024 4:15 PM CDT Office Visit Department of Ophthalmology in [place], [place] [address] [place] [phone] Kandace Shankar M.D. [address] [place] [phone] 08/20/2024 3:00 PM CDT Appointment Division of Gastroenterology in [place], [place] [address] [place] [phone] Cristiane Palacio, GRUPO, C.N.P., D.N.P. [address] [place] [phone] 08/22/2024 4:20 PM CDT Telemedicine Division of Gastroenterology in [place], [place] [address] [place] [phone] Swapnil Jaramillo M.D. [address] [place] [phone] 10/22/2024 8:30 AM BOILER SETTER Clinical Communication Virtual Review in [place], [place] 200 [place] [phone] 10/25/2024 10:30 AM BOILER SETTER Comprehensive Visit Department of Neurology in [place], [place] [address] [place] [phone] Oziel Odonnell M.D. [address] [place] [phone] documented as of this encounter Procedures Procedure [...] (HCC) documented in this encounter Care Teams Brick Offbearer Relationship Specialty Start Date End Date Elsewhere, Pcp PCP - General Internal Medicine 02/26/24 documented as of this encounter
--- OUTSIDE RECORDS SUMMARY | 2024-08-10 05:58 | XMS_ITS | Encounter Summary ---
Author Organization [facility] Address [address] [place] [address] Care Team Providers Care Plunger Machine Operator Name Role Phone Elsewhere, Pcp Primary Care Provider Unavailabl e Encounter Details Date Type Department Care Team (Late st Contact Info) Description 05/07/2024 Orders Only Division of Gastroenterology in [place], [place] [address] [place] [address] Stan Hernandez M.D. Social History Tobacco Use Types Packs/Day Years Used Date Smoking Tobacco: Former Cigarettes Smokeless Tobacco: Never Alcohol Use Standard Drinks/Week Comments Not Currently 0 (1 standard drink = 0.6 oz pur e alcohol) [facility] Utilities Answer Date Recorded In the past 12 months has e [employer], gas, oil, or water [employer] threatened to shut off services in your [...] your living situation today? I have a [facility] place to live 03/12/2024 Sex [...] CDT Comprehensive Visit Department of Neurology in [place], [place] 200 [place] [phone] Cristiane Palacio, GRUPO, C.N.P., D.N.P. 200 [place] [address] Kriss Wharton M.S., [facility]-RETAIL ASSOCIATE [address] [place] [phone] 08/15/2024 9:00 AM CDT Appointment Department of Radiology, [facility], in [place], [place] [address] [place] [phone] Cristiane Palacio APRN, C.N.P., D.N.P. [address] [place] [phone] Kriss Wharton M.S., [facility] [address] [place] [phone] 08/15/2024 9:45 AM CDT Clinical Support Department of Neurology in [address] [phone] Cristiane Palacio APRN, C.N.P., D.N.P. [address] [place] [phone] Kriss Wharton M.S., [facility] [address] [place] [phone] 08/15/2024 1:00 PM CDT Office Visit Department of Otorhinolaryngology in [address] [phone] Rafal Rankin M.D. [address] [place] [phone] 08/15/2024 2:30 PM CDT Ancillary Procedure Department of Ophthalmology in [place], [place] [address] [place] [phone] Kandace Shankar M.D. [address] [place] [phone] 08/15/2024 3:00 PM CDT Comprehensive Visit Department of Ophthalmology in [place], [place] [address] [place] [phone] Peña Carver M.D. [address] [place] [phone] 08/15/2024 4:15 PM CDT Office Visit Department of Ophthalmology in [place], [place] [address] [place] [phone] Kandace Shankar M.D. [address] [place] [phone] 08/20/2024 3:00 PM CDT Appointment Division of Gastroenterology in [place], [place] [address] [place] [phone] Cristiane Palacio, GRUPO, C.N.P., D.N.P. [address] [place] [phone] 08/22/2024 4:20 PM CDT Telemedicine Division of Gastroenterology in [place], [place] [address] [place] [phone] Swapnil Jaramillo M.D. [address] [place] [phone] 10/22/2024 8:30 AM SUPERVISOR CAP AND HAT PRODUCTION Clinical Communication Virtual Review in [place], [place] 200 [place] [phone] 10/25/2024 10:30 AM SUPERVISOR [employer] PRODUCTION Comprehensive Visit Department of Neurology in [place], [place] [address] [place] [phone] Oziel Odonnell M.D. [address] [place] [phone] documented as of this encounter Visit Diagnoses Not on filedocumented in this encounter Care Teams Plunger Machine Operator Relationship Specialty Start Date End Date Elsewhere, Pcp PCP - General Internal Medicine 02/26/24 documented as of this encounter
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
--- OUTSIDE RECORDS SUMMARY | 2024-08-10 05:58 | XMS_ITS | Encounter Summary ---
Author Organization [facility] Address [address] [place] [phone] Care Team Providers Care Administrative Clerk Name Role Phone Elsewhere, Pcp Primary Care Provider Unavailabl e Reason for Referral * Outpatient (Routine) - Closed Specialty Diagnoses / Procedures Referred By Contwaldemar t Referred To Contact Diagnoses Sialorrhea Procedures US Guidance Intraoperative Rafal Rankin M.D. 200 [place] [address] [facility] Referral ID Status Reason Start Date Expiration Date Visits Re quested Visits Authorized [id number] Closed 06/19/2024 06/19/2025 1 1 Encounter Details Date Type Department Care Team (Latest Contact Info) Description 06/18/2024 Orders Only Department of Otorhinolaryngology in [place], [place] [address] [place] [phone] Luz Muir R.N. [address] [place] [phone] Sialorrhea (Primary Dx) Social History Tobacco Use Types Packs/Day Years Used Date Smoking Tobacco: Former Cigarettes Q uit: 1985 Smokeless Tobacco: Never Alcohol Use Standard Drinks/Week Comments Not Currently 0 (1 standard drink = 0.6 oz pur e alcohol) [facility] Utilities Answer Date Recorded In the [...] your living situation today? I have a [facility] place to live 03/12/2024 Sex [...] CDT Comprehensive Visit Department of Neurology in [place], [place] [address] [place] [phone] Cristiane Palacio APRN, C.N.P., D.N.P. [address] [place] [phone] Kriss Wharton, M.S., CCC-WASTEWATER TREATMENT OPERATOR [address] [place] [phone] 08/15/2024 9:00 AM CDT Appointment Department of Radiology, [facility], in [place], [place] [address] [place] [phone] Cristiane Palacio APRN, C.N.P., D.N.P. [address] [place] [phone] Kriss Wharton, M.S., CCC-WASTEWATER TREATMENT OPERATOR [address] [place] [phone] 08/15/2024 9:45 AM CDT Clinical Support Department of Neurology in [address] [phone] Cristiane Palacio APRN, C.N.P., D.N.P. [address] [place] [phone] Kriss Wharton, M.S., CCC-WASTEWATER TREATMENT OPERATOR [address] [place] [phone] 08/15/2024 1:00 PM CDT Office Visit Department of Otorhinolaryngology in [address] [place] [address] Rafal Rankin M.D. [address] [place] [phone] 08/15/2024 2:30 PM CDT Ancillary Procedure Department of Ophthalmology in [place], [place] [address] [place] [phone] Kandace Shankar M.D. [address] [place] [phone] 08/15/2024 3:00 PM CDT Comprehensive Visit Department of Ophthalmology in [place], [place] [address] [place] [phone] Peña Carver M.D. [address] [place] [phone] 08/15/2024 4:15 PM CDT Office Visit Department of Ophthalmology in [place], [place] [address] [place] [phone] Kandace Shankar M.D. [address] [place] [phone] 08/20/2024 3:00 PM CDT Appointment Division of Gastroenterology in [place], [place] [address] [place] [phone] Cristiane Palacio, GRUPO, C.N.P., D.N.P. [address] [place] [phone] 08/22/2024 4:20 PM CDT Telemedicine Division of Gastroenterology in [place], [place] [address] [place] [phone] Swapnil Jaramillo M.D. [address] [place] [phone] 10/22/2024 8:30 AM PROFESSOR IN FAMILY STUDIES Clinical Communication Virtual Review in [place], [place] 200 [place] [address] 10/25/2024 10:30 AM PROFESSOR IN FAMILY STUDIES Comprehensive Visit Department of Neurology in [place], [place] [address] [place] [phone] Oziel Odonnell M.D. [address] [place] [phone] documented as of this encounter Results * [...] Sialorrhea documented in this encounter Care Teams Administrative Clerk Relationship Specialty Start Date End Date Elsewhere, Pcp PCP - General Internal Medicine 02/26/24 documented as of this encounter
--- OUTSIDE RECORDS SUMMARY | 2024-08-10 05:58 | XMS_ITS | Encounter Summary ---
Author Organization [facility] Address [address] [place] [address] Care Team Providers Care Associate Professor Of Kinesiology Name Role Phone Elsewhere, Pcp Primary Care Provider Unavailabl e Reason for Visit * Reason Comments Feeding Tube Encounter Details Date Type Department Care Team (Latest Contact Info) Description 06/18/2024 10:00 AM CDT Clinical Support Division of Endocrinology in [place], [place] [address] [place] [address] Stan Hernandez M.D. Ankit Medina, R.N. Dysphagia; Stenosis Laryngeal; Pneumonitis Due To Inhalation Of Food And Vomit (HCC) Social History Tobacco Use Types Packs/Day Years Used Date Smoking Tobacco: Former Cigarettes Q uit: 1985 Smokeless Tobacco: Never Alcohol Use Standard Drinks/Week Comments Not Currently 0 (1 standard drink = 0.6 oz pur e alcohol) [facility] Utilities Answer Date Recorded In the past 12 months has e [employer], gas, oil, or water [employer] threatened to shut off services in your [...] your living situation today? I have a [facility] place to live 03/12/2024 Sex and [...] replaced: 05/15/2024 Patient reported replaced locally at [facility] Skin disk level: 3.5 cm moved to 4 cm Internal anchor device: Balloon, not checked Site condition: Tube site is concave in nature, just above an abdominal fold. Scant mucous drainagewith very small ridge of granulation tissue 6626-8129.The granulation tissue from 1736-7588 was scabbed over. circumferential erythema under skin [...] Self replacement: NA Special order tube: GI/IR supervisor central supply notified? NA PLAN Is there a procedure [...] handout discussed and demonstrated. Granulation tissue from 6385-0236 treated with 1 stick of silver nitrate [...] with the TGJ tube, because they enjoy [employer] boarding. We discussed that his tube site [...] future tube care and replacements done at [facility]. *Per HEN provider Cristiane Palacio CNP nurse [...] Comprehensive Visit Department of Neurology in [address] [phone] Cristiane Palacio APRN, C.N.P., D.N.P. [address] [place] [phone] Kriss Wharton M.S., CCC-WINERY CELLAR HAND [address] [place] [phone] 08/15/2024 9:00 AM CDT Appointment Department of Radiology, [facility], in [address] [phone] Cristiane Palacio APRN, C.N.P., D.N.P. [address] [place] [phone] Kriss Wharton M.S., CCC-WINERY CELLAR HAND [address] [place] [phone] 08/15/2024 9:45 AM CDT Clinical Support Department of Neurology in [address] [phone] Cristiane Palacio APRN, C.N.P., D.N.P. [address] [place] [phone] Kriss Wharton M.S., CCC-WINERY CELLAR HAND [address] [place] [phone] 08/15/2024 1:00 PM CDT Office Visit Department of Otorhinolaryngology in [place], [place] [address] [place] [phone] Rafal Rankin M.D. [address] [place] [phone] 08/15/2024 2:30 PM CDT Ancillary Procedure Department of Ophthalmology in [place], [place] [address] [place] [phone] Kandace Shankar M.D. [address] [place] [phone] 08/15/2024 3:00 PM CDT Comprehensive Visit Department of Ophthalmology in [place], [place] [address] [place] [phone] Peña Carver M.D. [address] [place] [phone] 08/15/2024 4:15 PM CDT Office Visit Department of Ophthalmology in [place], [place] [address] [place] [phone] Kandace Shankar M.D. [address] [place] [phone] 08/20/2024 3:00 PM CDT Appointment Division of Gastroenterology in [place], [place] [address] [place] [phone] Cristiane Palacio, GRUPO, C.N.P., D.N.P. [address] [place] [phone] 08/22/2024 4:20 PM CDT Telemedicine Division of Gastroenterology in [place], [place] [address] [place] [phone] Swapnil Jaramillo M.D. [address] [place] [phone] 10/22/2024 8:30 AM INSTRUCTOR PROGRAMMABLE CONTROLLERS Clinical Communication Virtual Review in [place], [place] 200 [place] [address] 10/25/2024 10:30 AM INSTRUCTOR PROGRAMMABLE CONTROLLERS Comprehensive Visit Department of Neurology in [place], [place] [address] [place] [phone] Oziel Odonnell M.D. [address] [place] [phone] documented as of this encounter Visit Diagnoses Diagnosis Dysphagia Stenosis Laryngeal Pneumonitis Due To Inhalation Of Food And Vomit (HCC) documented in this encounter Care Teams Associate Professor Of Kinesiology Relationship Specialty Start Date End Date Elsewhere, Pcp PCP - General Internal Medicine 02/26/24 documented as of this encounter
--- OUTSIDE RECORDS SUMMARY | 2024-08-10 05:58 | XMS_ITS | Encounter Summary ---
Author Organization [facility] Address [address] [place] [address] Care Team Providers Care Busser Name Role Phone Elsewhere, Pcp Primary Care Provider Unavailabl e Reason for Visit * Reason Comments Scheduling Encounter Details Date Type Department Care Team (Late st Contact Info) Description 05/09/2024 Documentation Division of Endocrinology in [place], [place] [address] [place] [phone] Lesley Reis, R.N. [address] [place] [address] Scheduling Social History Tobacco Use Types Packs/Day Years Used Date Smoking Tobacco: Former Cigarettes Smokeless Tobacco: Never Alcohol Use Standard Drinks/Week Comments Not Currently 0 (1 standard drink = 0.6 oz pur e alcohol) [facility] Utilities Answer Date Recorded In the [...] He is currently followed by dietitians at [facility]. They will need to see the [facility] Dietitian, Nurse & Provider. Patient has not been seen by [facility] before. Requesting appointments 1st available. documented in this encounter Plan of Treatment Upcoming Encounters Date Type Department Care Team (Latest Contact Info) Description 08/15/2024 8:00 AM CDT Comprehensive Visit Department of Neurology in [address] [phone] Cristiane Palacio APRN, C.N.P., D.N.P. [address] [place] [phone] Kriss Wharton, M.Chris, [facility] [phone] 08/15/2024 9:00 AM CDT Appointment Department of Radiology, [facility] [place], in [address] [phone] Cristiane Palacio APRN, C.N.P., D.N.P. [address] [place] [phone] Kriss Wharton, M.S., [facility]-[address] [phone] 08/15/2024 9:45 AM CDT Clinical Support Department of Neurology in [address] [phone] Cristiane Palacio APRN, C.N.P., D.N.P. [address] [place] [phone] Kriss Wharton M.SEdith, [facility]-[address] [phone] 08/15/2024 1:00 PM CDT Office Visit Department of Otorhinolaryngology in [place], [place] [address] [place] [phone] Rafal Rankin M.D. [address] [place] [phone] 08/15/2024 2:30 PM CDT Ancillary Procedure Department of Ophthalmology in [place], [place] [address] [place] [phone] Kandace Shankar M.D. [address] [place] [phone] 08/15/2024 3:00 PM CDT Comprehensive Visit Department of Ophthalmology in [place], [place] [address] [place] [phone] Peña Carver M.D. [address] [place] [phone] 08/15/2024 4:15 PM CDT Office Visit Department of Ophthalmology in [place], [place] [address] [place] [phone] Kandace Shankar M.D. [address] [place] [phone] 08/20/2024 3:00 PM CDT Appointment Division of Gastroenterology in [place], [place] [address] [place] [phone] Cristiane Palacio, GRUPO, C.N.P., D.N.P. [address] [place] [phone] 08/22/2024 4:20 PM CDT Telemedicine Division of Gastroenterology in [place], [place] [address] [place] [phone] Swapnil Jaramillo M.D. [address] [place] [phone] 10/22/2024 8:30 AM CUTTER HELPER Clinical Communication Virtual Review in [place], [place] 200 [place] [address] 10/25/2024 10:30 AM CUTTER HELPER Comprehensive Visit Department of Neurology in [place], [place] [address] [place] [phone] Oziel Odonnell M.D. [address] [place] [phone] documented as of this encounter Visit Diagnoses Not on filedocumented in this encounter Care Teams Busser Relationship Specialty Start Date End Date Elsewhere, Pcp PCP - General Internal Medicine 02/26/24 documented as of this encounter
--- OUTSIDE RECORDS SUMMARY | 2024-08-10 05:58 | XMS_ITS | Encounter Summary ---
Author Organization [facility] Address [address] [place] [address] Care Team Providers Care Funeral Director And Embalmer Name Role Phone Elsewhere, Pcp Primary Care [...] drink = 0.6 oz pur e alcohol) [facility] Utilities Answer Date Recorded In the past 12 months has e [employer], gas, oil, or water [employer] threatened to shut off services in your [...] CDT Comprehensive Visit Department of Neurology in [place], [place] 200 [place] [phone] Cristiane Palacio, GRUPO, C.N.P., D.N.P. [address] [place] [phone] Kriss Wharton M.S., [facility]-HAND CANDY DIPPER [address] [place] [phone] 08/15/2024 9:00 AM CDT Appointment Department of Radiology, [facility], in [place], [place] [address] [place] [phone] Cristiane Palacio APRN C.N.P., D.N.P. [address] [place] [phone] Kriss Wharton M.S., [facility]-HAND CANDY DIPPER [address] [place] [phone] 08/15/2024 9:45 AM CDT Clinical Support Department of Neurology in [address] [phone] Cristiane Palacio APRN, C.N.P., D.N.P. [address] [place] [phone] Kriss Wharton M.S., CCC-HAND CANDY DIPPER [address] [place] [phone] 08/15/2024 1:00 PM CDT Office Visit Department of Otorhinolaryngology in [address] [phone] Rafal Rankin M.D. [address] [place] [phone] 08/15/2024 2:30 PM CDT Ancillary Procedure Department of Ophthalmology in [address] [phone] Kandace Shankar M.D. [address] [place] [phone] 08/15/2024 3:00 PM CDT Comprehensive Visit Department of Ophthalmology in [place], [place] [address] [place] [phone] Peña Carver M.D. [address] [place] [phone] 08/15/2024 4:15 PM CDT Office Visit Department of Ophthalmology in [place], [place] [address] [place] [phone] Kandace Shankar M.D. [address] [place] [phone] 08/20/2024 3:00 PM CDT Appointment Division of Gastroenterology in [place], [place] [address] [place] [phone] Cristiane Palacio APRN, C.N.P., D.N.P. [address] [place] [phone] 08/22/2024 4:20 PM CDT Telemedicine Division of Gastroenterology in [place], [place] [address] [place] [phone] Swapnil Jaramillo M.D. [address] [place] [phone] 10/22/2024 8:30 AM ANHYDROUS AMMONIA PRODUCTION SUPERVISOR Clinical Communication Virtual Review in [place], [place] 200 [place] [phone] 10/25/2024 10:30 AM ANHYDROUS AMMONIA PRODUCTION SUPERVISOR Comprehensive Visit Department of Neurology in [place], [place] [address] [place] [phone] Oziel Odonnell M.D. [address] [place] [phone] documented as of this encounter Procedures Procedure [...] on filedocumented in this encounter Care Teams Funeral Director And Embalmer Relationship Specialty Start Date End Date Elsewhere, Pcp PCP - General Internal Medicine 02/26/24 documented as of this encounter
--- OUTSIDE RECORDS SUMMARY | 2024-08-10 05:58 | XMS_ITS | Encounter Summary ---
Author Organization [facility] Address [address] [place] [phone] Care Team Providers Care Dealer Sales Rep Name Role Phone Elsewhere, Pcp Primary Care Provider Unavailabl e Reason for Visit * Reason Onset Date Comments Blood Pressure 05/15/2024 Encounter Details Date Type Department Care Team (Latest Contact Info) Description 05/15/2024 10:30 AM CDT Clinical Communication Virtual Review in [place], [place] 200 [place] [address] Blood Pressure Social History Tobacco Use Types Packs/Day Years Used Date Smoking Tobacco: Former Cigarettes Q uit: 1985 Smokeless Tobacco: Never Tobacco Cessation:Counseling Given: Not Answered Alcohol Use Standard Drinks/Week Comments Not Currently 0 (1 standard drink = 0.6 oz pur e alcohol) [facility] Utilities Answer Date Recorded [...] your living situation today? I have a [facility] place to live 03/12/2024 Sex and [...] CDT Comprehensive Visit Department of Neurology in [place], [place] 200 [place] [address] Cristiane Palacio, GRUPO, C.N.P., D.N.P. 200 [place] [address] Kriss Wharton M.S., [facility]-FIELD OPERATIONS SUPERVISOR [address] [place] [phone] 08/15/2024 9:00 AM CDT Appointment Department of Radiology, [facility], in [place], [place] [address] [place] [phone] Cristiane Palacio APRN, C.N.P., D.N.P. [address] [place] [phone] Kriss Wharton M.S., [facility] [address] [place] [phone] 08/15/2024 9:45 AM CDT Clinical Support Department of Neurology in [place], [place] [address] [place] [phone] Cristiane Palacio APRN, C.N.P., D.N.P. [address] [place] [phone] Kriss Wharton M.S., [facility] [address] [place] [phone] 08/15/2024 1:00 PM CDT Office Visit Department of Otorhinolaryngology in [place], [place] [address] [place] [phone] Rafal Rankin M.D. [address] [place] [phone] 08/15/2024 2:30 PM CDT Ancillary Procedure Department of Ophthalmology in [place], [place] [address] [place] [phone] Kandace Shankar M.D. [address] [place] [phone] 08/15/2024 3:00 PM CDT Comprehensive Visit Department of Ophthalmology in [place], [place] [address] [place] [phone] Peña Carver M.D. [address] [place] [phone] 08/15/2024 4:15 PM CDT Office Visit Department of Ophthalmology in [place], [place] [address] [place] [phone] Kandace Shankar M.D. [address] [place] [phone] 08/20/2024 3:00 PM CDT Appointment Division of Gastroenterology in [place], [place] [address] [place] [phone] Cristiane Palacio APRN, C.N.P., D.N.P. [address] [place] [phone] 08/22/2024 4:20 PM CDT Telemedicine Division of Gastroenterology in [place], [place] [address] [place] [phone] Swapnil Jaramillo M.D. [address] [place] [phone] 10/22/2024 8:30 AM EMPLOYMENT APPEALS EXAMINER Clinical Communication Virtual Review in [place], [place] 200 [place] [phone] 10/25/2024 10:30 AM EMPLOYMENT APPEALS EXAMINER Comprehensive Visit Department of Neurology in [place], [place] [address] [place] [phone] Oziel Odonnell M.D. [address] [place] [phone] documented as of this encounter Visit Diagnoses Not on filedocumented in this encounter Care Teams Dealer Sales Rep Relationship Specialty Start Date End Date Elsewhere, Pcp PCP - General Internal Medicine 02/26/24 documented as of this encounter
--- OUTSIDE RECORDS SUMMARY | 2024-08-10 05:58 | XMS_ITS | Encounter Summary ---
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 [facility] Referral ID Status Reason Start Date Expiration Date Visits Re quested Visits Authorized [id number] Closed 05/09/2024 11/08/2025 1 1 Encounter Details Date Type Department Care Team (Latest Contact Info) Description 06/18/2024 9:00 AM CDT Clinical Support Department of Nutrition and Diabetes Education in [place], [place] [address] [place] [phone] Stan Hernandez M.D. Johnson, Danelle A, M.S., RDN, LD [address] [place] [phone] Dietary Counseling And Surveillance For Enteral Nutrition [...] Relevant Social and Family History Resides in [place]. Medical Tests and Procedures/Biochemical Data VFSS (03/22/24): [...] Normal Muscle Mass: Normal Tube Information 18 Green[place]ic TGJ tube last replaced at [facility] 05/15/24 Food/Nutrient Related History Oral Intake: [...] BMI: 22.2 Estimation of Nutritional Needs Calories: 4555-0795 kcals/day (30-35 kcal/kg) Protein: 88-110 grams/day (1.2-1.5 [...] that will provide needed supplies for home: [employer] in [place] - they are unhappy with what they [...] Patient is followed in [facility]: He will contact us as needed. Time spent with patient (minutes): 60 documented in this encounter Plan of Treatment Upcoming Encounters Date Type Department Care Team (Latest Contact Info) Description 08/15/2024 8:00 AM CDT Comprehensive Visit Department of Neurology in [place], [place] [address] [place] [phone] Cristiane Palacio APRN, C.N.P., D.N.P. [address] [place] [phone] Kriss Wharton M.S., CCC-COMMERCIAL ELECTRICIAN [address] [place] [phone] 08/15/2024 9:00 AM CDT Appointment Department of Radiology, [facility], in [place], [place] [address] [place] [phone] Cristiane Palacio APRN, C.N.P., D.N.P. [address] [place] [phone] Kriss Wharton M.S., CCC-COMMERCIAL ELECTRICIAN [address] [place] [phone] 08/15/2024 9:45 AM CDT Clinical Support Department of Neurology in [address] [phone] Cristiane Palacio APRN C.N.P., D.N.P. [address] [place] [phone] Kriss Wharton M.S., CCC-COMMERCIAL ELECTRICIAN [address] [place] [phone] 08/15/2024 1:00 PM CDT Office Visit Department of Otorhinolaryngology in [address] [phone] Rafal Rankin M.D. [address] [place] [phone] 08/15/2024 2:30 PM CDT Ancillary Procedure Department of Ophthalmology in [place], [place] [address] [place] [phone] Kandace Shankar M.D. [address] [place] [phone] 08/15/2024 3:00 PM CDT Comprehensive Visit Department of Ophthalmology in [address] [phone] Peña Carver M.D. [address] [place] [phone] 08/15/2024 4:15 PM CDT Office Visit Department of Ophthalmology in [place], [place] [address] [place] [phone] Kandace Shankar M.D. [address] [place] [address] [phone] 08/20/2024 3:00 PM CDT Appointment Division of Gastroenterology in [place], [place] [address] [place] [phone] Cristiane Palacio, GRUPO, C.N.P., D.N.P. [address] [place] [phone] 08/22/2024 4:20 PM CDT Telemedicine Division of Gastroenterology in [place], [place] [address] [place] [phone] Swapnil Jaramillo M.D. [address] [place] [phone] 10/22/2024 8:30 AM HARPOON ENGAGEMENT PLANNING OPERATOR Clinical Communication Virtual Review in [place], [place] 200 [place] [phone] 10/25/2024 10:30 AM HARPOON ENGAGEMENT PLANNING OPERATOR Comprehensive Visit Department of Neurology in [place], [place] [address] [place] [phone] Oziel Odonnell M.D. 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
--- OUTSIDE RECORDS SUMMARY | 2024-08-10 05:58 | XMS_ITS | Encounter Summary ---
Author Organization [facility] Address [address] [place] [address] Care Team Providers Care Auto Design Detailer Name Role Phone Elsewhere, Pcp Primary Care Provider Unavailabl e Reason for Referral * Outpatient (Routine) - Authorized Specialty Diagnoses / Procedures Referred By Contwaldemar t Referred To Contact Ophthalmology Diagnoses Diplopia Kandace Shankar M.D. [address] [place] [phone] [facility] Referral ID Status Reason Start Date Expiration Date V isits Requested Visits Authorized [id number] Authorized 05/20/2024 11/19/2025 1 1 Scheduling Instructions Coordinate with return visit in Neuro-Ophthalmology with Dr. Shankar Encounter Details Date Type Department Care Team (Late st Contact Info) Description 05/20/2024 Orders Only Department of Ophthalmology in [place], [place] [address] [place] [phone] Kandace Shankar M.D. [address] [place] [phone] Diplopia (Primary Dx) Social History Tobacco Use Types Packs/Day Years Used Date Smoking Tobacco: Former Cigarettes Q uit: 1985 Smokeless Tobacco: Never Alcohol Use Standard Drinks/Week Comments Not Currently 0 (1 standard drink = 0.6 oz pur e alcohol) [facility] Utilities Answer Date Recorded In the [...] CDT Comprehensive Visit Department of Neurology in [address] [phone] Cristiane Palacio APRN, C.N.P., D.N.P. [address] [place] [phone] Kriss Wharton M.S., [facility]-COMBINATION WELDER APPRENTICE [address] [place] [address] [phone] 08/15/2024 9:00 AM CDT Appointment Department of Radiology, [facility], in [address] [phone] Cristiane Palacio APRN, C.N.P., D.N.P. [address] [place] [phone] Kriss Wharton M.Chris, [facility]-COMBINATION WELDER APPRENTICE [address] [place] [phone] 08/15/2024 9:45 AM CDT Clinical Support Department of Neurology in [address] [phone] Cristiane Palacio APRN, C.N.P., D.N.P. [address] [place] [phone] Kriss Wharton M.Chris, [facility]-COMBINATION WELDER APPRENTICE [address] [place] [phone] 08/15/2024 1:00 PM CDT Office Visit Department of Otorhinolaryngology in [place], [place] [address] [place] [phone] Rafal Rankin M.D. [address] [place] [phone] 08/15/2024 2:30 PM CDT Ancillary Procedure Department of Ophthalmology in [place], [place] [address] [place] [phone] Kandace Shankar M.D. [address] [place] [phone] 08/15/2024 3:00 PM CDT Comprehensive Visit Department of Ophthalmology in [place], [place] [address] [place] [phone] Peña Carver M.D. [address] [place] [phone] 08/15/2024 4:15 PM CDT Office Visit Department of Ophthalmology in [place], [place] [address] [place] [phone] Kandace Shankar M.D. [address] [place] [phone] 08/20/2024 3:00 PM CDT Appointment Division of Gastroenterology in [place], [place] [address] [place] [phone] Cristiane Palacio, GRUPO, C.N.P., D.N.P. [address] [place] [phone] 08/22/2024 4:20 PM CDT Telemedicine Division of Gastroenterology in [place], [place] [address] [place] [phone] Swapnil Jaramillo M.D. [address] [place] [phone] 10/22/2024 8:30 AM CASHIER ASSOCIATE Clinical Communication Virtual Review in [place], [place] 200 [place] [phone] 10/25/2024 10:30 AM CASHIER ASSOCIATE Comprehensive Visit Department of Neurology in [place], [place] [address] [place] [phone] Oziel Odonnell M.D. [address] [place] [phone] Scheduled Referrals Name Type Priority Associated Diagnoses Order Schedule Ophthalmology - Adult strabismus consult (clinic) Outpatient Referral Routine Diplopia Expected: 08/20/2024, Expires: 08/20/2025 documented as of this encounter Visit Diagnoses Diagnosis Diplopia- Primary documented in this encounter Care Teams Auto Design Detailer Relationship Specialty Start Date End Date Elsewhere, Pcp PCP - General Internal Medicine 02/26/24 documented as of this encounter
--- OUTSIDE RECORDS SUMMARY | 2024-08-10 05:58 | XMS_ITS | Encounter Summary ---
Author Organization [facility] Address [address] [place] [address] Care Team Providers Care Shipping And Receiving Weigher Name Role Phone Elsewhere, Pcp Primary Care Provider Unavailabl e Reason for Referral * Outpatient (Routine) - Authorized Specialty Diagnoses / Procedures Referred By Karine t Referred To Contact Diagnoses Dietary Counseling And Surveillance For Enteral Nutrition Procedures EGD ? Percutaneous Endoscopic Gastrostomy/Jejunostomy Cristiane Palacio APRN, C.N.P., D.N.P. [address] [place] [phone] [facility] Referral ID Status Reason Start Date Expiration Date V isits Requested Visits Authorized [id number] Authorized 06/18/2024 06/18/2025 1 1 * Outpatient (Routine) - Authorized Specialty Diagnoses / Procedures Referred By Contwaldemar t Referred To Contact Endocrinology Diagnoses Dietary Counseling And Surveillance For Enteral Nutrition Cristiane Palacio APRN, C.N.P., D.N.P. [address] [place] [phone] [facility] Referral ID Status Reason Start Date Expiration Date V isits Requested Visits Authorized [id number] Authorized 06/18/2024 12/18/2025 1 1 Scheduling Instructions TRIAGE ONLY Encounter Details Date Type Department Care Team (Late st Contact Info) Description 06/18/2024 Orders Only Division of Endocrinology in [place], [place] [address] [place] [address] Ankit Medina REdithNEdith Dietary Counseling And Surveillance For Enteral Nutrition (Primary Dx) Social History Tobacco Use Types Packs/Day Years Used Date Smoking Tobacco: Former Cigarettes Q uit: 1985 Smokeless Tobacco: Never Alcohol Use Standard Drinks/Week Comments Not Currently 0 (1 standard drink = 0.6 oz pur e alcohol) [facility] Utilities Answer Date Recorded In the past 12 months has [facility] [employer], gas, oil, or water Newser threatened to shut off services in your [...] your living situation today? I have a [employer] place to live 03/12/2024 Sex and Gender Information Value Date Recorded Sex Assigned at Male 03/12/2024 1:38 PM CDT Gender Identity Male 03/12/2024 1:38 PM CDT Sexual Orientation Straight 03/12/2024 1: 38 PM CDT documented as of this encounter Plan of Treatment Upcoming Encounters Date Type Department Care Team (Latest Contact Info) Description 08/15/2024 8:00 AM CDT Comprehensive Visit Department of Neurology in [place], [place] [address] [place] [phone] Cristiane Palacio APRN, C.N.P., D.N.P. [address] [place], [place] [phone] Kriss Wharton M.S., [facility] [address] [place] [phone] 08/15/2024 9:00 AM CDT Appointment Department of Radiology, [facility], in [place], [place] [address] [place] [phone] Cristiane Palacio APRN, C.N.P., D.N.P. [address] [place] [phone] Kriss Wharton M.S., [facility] [address] [place] [phone] 08/15/2024 9:45 AM CDT Clinical Support Department of Neurology in [place], [place] [address] [place] [phone] Cristiane Palacio, GRUPO C.N.P., D.N.P. [address] [place] [phone] Kriss Wharton M.S., [facility] [address] [place] [phone] 08/15/2024 1:00 PM CDT Office Visit Department of Otorhinolaryngology in [address] [phone] Rafal Rankin M.D. [address] [place] [phone] 08/15/2024 2:30 PM CDT Ancillary Procedure Department of Ophthalmology in [address] [phone] Kandace Shankar M.D. [address] [place] [phone] 08/15/2024 3:00 PM CDT Comprehensive Visit Department of Ophthalmology in [address] [phone] Peña Carver M.D. [address] [place] [phone] 08/15/2024 4:15 PM CDT Office Visit Department of Ophthalmology in [address] [phone] Kandace Shankar M.D. [address] [place] [phone] 08/20/2024 3:00 PM CDT Appointment Division of Gastroenterology in [place], [place] [address] [place] [phone] Cristiane Palacio APRN, C.N.P., D.N.P. [address] [place] [phone] 08/22/2024 4:20 PM CDT Telemedicine Division of Gastroenterology in [place], [place] [address] [place] [phone] Swapnil Jaramillo M.D. [address] [place] [phone] 10/22/2024 8:30 AM TYPING OFFICE WORKER Clinical Communication Virtual Review in [place], [place] [address] [place] [address] 10/25/2024 10:30 AM TYPING OFFICE WORKER Comprehensive Visit Department of Neurology in [place], [place] [address] [place] [phone] Oziel Odonnell M.D. [address] [place] [phone] Scheduled Orders Name Type Priority Associated Diagnoses [...] Primary documented in this encounter Care Teams Shipping And Receiving Weigher Relationship Specialty Start Date End Date Elsewhere, Pcp PCP - General Internal Medicine 02/26/24 documented as of this encounter
--- OUTSIDE RECORDS SUMMARY | 2024-08-10 05:58 | XMS_ITS | Encounter Summary ---
Author Organization [facility] Address [address] [place] [address] Care Team Providers Care Insurance Service Representative Name Role Phone Elsewhere, Pcp Primary Care Provider Unavailabl e Reason for Referral * Speech Pathology (Routine) - Authorized Specialty Diagnoses / Procedures Referred By Karine velasco Referred To Contact Diagnoses Dysphagia Procedures CHANNEL CEMENTER - Ongoing treatment Cristiane Palacio APRN, C.N.P., D.N.P. [address] [place] [phone] [facility] Referral ID Status Reason Start Date Expiration Date V isits Requested Visits Authorized [id number] Authorized 06/18/2024 06/18/2025 99 99 * Outpatient (Routine) - Authorized Specialty Diagnoses / Procedures Referred By Karine velasco Referred To Contact Diagnoses Dysphagia Procedures FL Swallow Function with Video and Speech or OT Cristiane Palacio APRN, C.N.P., D.N.P. [address] [place] [phone] [facility] Referral ID Status Reason Start Date Expiration Date V isits Requested Visits Authorized [id number] Authorized 06/18/2024 06/18/2025 1 1 * Speech Pathology (Routine) - Authorized Specialty Diagnoses / Procedures Referred By Contac t Referred To Contact Diagnoses Dysphagia Procedures CHANNEL CEMENTER Dysphagia evaluate and treat Cristiane Palacio APRN C.N.PEdith, D.N.P. [address] [place] [phone] [facility] Referral ID Status Reason Start Date Expiration Date V isits Requested Visits Authorized [id number] Authorized 06/18/2024 06/18/2025 99 99 Encounter Details Date Type Department Care Team (Late st Contact Info) Description 06/18/2024 Orders Only Division of Endocrinology in [place], [place] [address] [place] [phone] Cristiane Palacio APRN, C.N.P., D.N.P. [address] [place] [phone] Dysphagia (Primary Dx) Social History Tobacco Use Types Packs/Day Years Used Date Smoking Tobacco: Former Cigarettes Q uit: 1985 Smokeless Tobacco: Never Alcohol Use Standard Drinks/Week Comments Not Currently 0 (1 standard drink = 0.6 oz pur e alcohol) [facility] Utilities Answer Date Recorded In the past 12 months has e electric, gas, oil, or water [employer]etch threatened to shut off services in your [...] your living situation today? I have a [facility] place to live 03/12/2024 Sex and [...] CDT Comprehensive Visit Department of Neurology in [place], [place] [address] [place] [address] Cristiane Palacio, GRUPO, C.N.P., D.N.P. 200 [place] [address] Kriss Wharton M.S., [facility] [address] [place] [phone] 08/15/2024 9:00 AM CDT Appointment Department of Radiology, [facility], in [place], [place] [address] [place] [phone] Cristiane Palacio APRN, C.N.PEdith, D.N.P. [address] [place] [phone] Kriss Wharton M.S., [facility] [address] [place] [phone] 08/15/2024 9:45 AM CDT Clinical Support Department of Neurology in [place], [place] [address] [place] [phone] Cristiane Palacio APRN, C.N.P., D.N.P. [address] [place] [phone] Kriss Wharton M.S., [facility] [address] [place] [phone] 08/15/2024 1:00 PM CDT Office Visit Department of Otorhinolaryngology in [place], [place] [address] [place] [phone] Rafal Rankin M.D. [address] [place] [phone] 08/15/2024 2:30 PM CDT Ancillary Procedure Department of Ophthalmology in [place], [place] [address] [place] [phone] Kandace Shankar M.D. [address] [place] [phone] 08/15/2024 3:00 PM CDT Comprehensive Visit Department of Ophthalmology in [place], [place] [address] [place] [phone] Peña Carver M.D. [address] [place] [phone] 08/15/2024 4:15 PM CDT Office Visit Department of Ophthalmology in [place], [place] [address] [place] [phone] Kandace Shankar M.D. [address] [place] [phone] 08/20/2024 3:00 PM CDT Appointment Division of Gastroenterology in [place], [place] [address] [place] [phone] Cristiane Palacio, GRUPO, C.N.P., D.N.P. [address] [place] [phone] 08/22/2024 4:20 PM CDT Telemedicine Division of Gastroenterology in [place], [place] [address] [place] [phone] Swapnil Jaramillo M.D. [address] [place] [phone] 10/22/2024 8:30 AM TRIBAL DELEGATE Clinical Communication Virtual Review in [place], [place] 200 [place] [address] 10/25/2024 10:30 AM TRIBAL DELEGATE Comprehensive Visit Department of Neurology in [place], [place] [address] [place] [phone] Oziel Odonnell M.D. [address] [place] [phone] Scheduled Orders Name Type Priority Associated Diagnoses Orde r Schedule FL Swallow Function with Video and Speech or OT Imaging RAD - Routine (most inpatients and all outpatients) Dysphagia Expected: 06/18/2024, Expires: 09/18/2025 documented as of this encounter Visit Diagnoses Diagnosis Dysphagia- Primary documented in this encounter Care Teams Insurance Service Representative Relationship Specialty Start Date End Date Elsewhere, Pcp PCP - General Internal Medicine 02/26/24 documented as of this encounter
--- OUTSIDE RECORDS SUMMARY | 2024-08-10 05:58 | XMS_ITS | Encounter Summary ---
Author Organization [facility] Address [address] [place] [address] Care Team Providers Care Ironer Or Presser Name Role Phone Elsewhere, Pcp Primary Care Provider Unavailabl e Encounter Details Date Type Department Care Team (Latest Contact Info) Description 06/18/2024 Clinical Communication Department of Otorhinolaryngology in [place], [place] [address] [place] [address] Rafal Rankin M.D. [address] [place] [address] Social History Tobacco Use Types Packs/Day Years Used Date Smoking Tobacco: Former Cigarettes Q uit: 1985 Smokeless Tobacco: Never Alcohol Use Standard Drinks/Week Comments Not Currently 0 (1 standard drink = 0.6 oz pur e alcohol) [facility] Utilities Answer Date Recorded In the [...] CDT Comprehensive Visit Department of Neurology in [place], [place] 200 [place] [address] Cristiane Palacio, GRUPO, C.N.P., D.N.P. [address] [place] [phone] Kriss Wharton M.S., [facility] [address] [place] [phone] 08/15/2024 9:00 AM CDT Appointment Department of Radiology, [facility], in [place], [place] [address] [place] [phone] Cristiane Palacio APRN, C.N.P., D.N.P. [address] [place] [phone] Kriss Wharton M.S., [facility] [address] [place] [phone] 08/15/2024 9:45 AM CDT Clinical Support Department of Neurology in [place], [place] [address] [place] [phone] Cristiane Palacio APRN, C.N.P., D.N.P. [address] [place] [phone] Kriss Wharton M.S., [facility] [address] [place] [phone] 08/15/2024 1:00 PM CDT Office Visit Department of Otorhinolaryngology in [place], [place] [address] [place] [phone] Rafal Rankin M.D. [address] [place] [phone] 08/15/2024 2:30 PM CDT Ancillary Procedure Department of Ophthalmology in [place], [place] [address] [place] [phone] Kandace Shankar M.D. [address] [place] [phone] 08/15/2024 3:00 PM CDT Comprehensive Visit Department of Ophthalmology in [place], [place] [address] [place] [phone] Peña Carver M.D. [address] [place] [phone] 08/15/2024 4:15 PM CDT Office Visit Department of Ophthalmology in [place], [place] [address] [place] [phone] Kandace Shankar M.D. [address] [place] [phone] 08/20/2024 3:00 PM CDT Appointment Division of Gastroenterology in [place], [place] [address] [place] [phone] Cristiane Palacio APRN, C.N.P., D.N.P. [address] [place] [phone] 08/22/2024 4:20 PM CDT Telemedicine Division of Gastroenterology in [place], [place] [address] [place] [phone] Swapnil Jaramillo M.D. [address] [place] [phone] 10/22/2024 8:30 AM NATIONAL STORMWATER LEADER Clinical Communication Virtual Review in [place], [place] 200 [place] [phone] 10/25/2024 10:30 AM NATIONAL STORMWATER LEADER Comprehensive Visit Department of Neurology in [place], [place] [address] [place] [phone] Oziel Odonnell M.D. [address] [place] [phone] documented as of this encounter Visit Diagnoses Not on filedocumented in this encounter Care Teams Ironer Or Presser Relationship Specialty Start Date End Date Elsewhere, Pcp PCP - General Internal Medicine 02/26/24 documented as of this encounter
--- OUTSIDE RECORDS SUMMARY | 2024-08-10 05:58 | XMS_ITS | Encounter Summary ---
Author Organization [facility] Address [address] [place] [address] Care Team Providers Care Floor Service Worker Spring Name Role Phone Elsewhere, Pcp Primary Care Provider Unavailabl e Reason for Referral * Outpatient (Routine) - Closed Specialty Diagnoses / Procedures Referred By Contwaldemar t Referred To Contact Otorhinolaryngology Rafal Rankin M.D. [address] [place] [address] [facility] Referral ID Status Reason Start Date Expiration Date Visits Re quested Visits Authorized [id number] Closed 06/17/2024 12/17/2025 1 1 Encounter Details Date Type Department Care Team (Late st Contact Info) Description 06/17/2024 Orders Only Department of Otorhinolaryngology in [place], [place] [address] [place] [phone] Rafal Rankin M.D. [address] [place] [phone] Social History Tobacco Use Types Packs/Day Years Used Date Smoking Tobacco: Former Cigarettes Q uit: 1985 Smokeless Tobacco: Never Alcohol Use Standard Drinks/Week Comments Not Currently 0 (1 standard drink = 0.6 oz pur e alcohol) [facility] Utilities Answer Date Recorded In the [...] CDT Comprehensive Visit Department of Neurology in [address] [phone] Cristiane Palacio APRN, C.N.P., D.N.P. [address] [place] [phone] Kriss Wharton M.S., [employer]NE[employer]IVE SPOT[employer] [address] [place] [phone] 08/15/2024 9:00 AM CDT Appointment Department of Radiology, [facility], in [place], [place] [address] [place] [phone] Cristiane Palacio APRN, C.N.P., D.N.P. [address] [place] [phone] Kriss Wharton MBree, CCC-NEGATIVE SPOTTER [address] [place] [phone] 08/15/2024 9:45 AM CDT Clinical Support Department of Neurology in [address] [phone] Cristiane Palacio APRN, C.N.P., D.N.P. [address] [place] [phone] Kriss Wharton M.S., CCC-NEGATIVE SPOTTER [address] [place] [phone] 08/15/2024 1:00 PM CDT Office Visit Department of Otorhinolaryngology in [place], [place] [address] [place] [phone] Rafal Rankin M.D. [address] [place] [phone] 08/15/2024 2:30 PM CDT Ancillary Procedure Department of Ophthalmology in [place], [place] [address] [place] [phone] Kandace Shankar M.D. [address] [place] [phone] 08/15/2024 3:00 PM CDT Comprehensive Visit Department of Ophthalmology in [place], [place] [address] [place] [phone] Peña Carver M.D. [address] [place] [phone] 08/15/2024 4:15 PM CDT Office Visit Department of Ophthalmology in [place], [place] [address] [place] [phone] Kandace Shankar M.D. [address] [place] [phone] 08/20/2024 3:00 PM CDT Appointment Division of Gastroenterology in [place], [place] [address] [place] [phone] Cristiane Palacio APRN, C.N.P., D.N.P. [address] [place] [phone] 08/22/2024 4:20 PM CDT Telemedicine Division of Gastroenterology in [place], [place] [address] [place] [phone] Swapnil Jaramillo M.D. [address] [place] [phone] 10/22/2024 8:30 AM SUPERVISOR MACHINE SETTER Clinical Communication Virtual Review in [place], [place] [address] [place] [phone] 10/25/2024 10:30 AM SUPERVISOR MACHINE SETTER Comprehensive Visit Department of Neurology in [place], [place] [address] [place] [phone] Oziel Odonnell M.D. [address] [place] [phone] Scheduled Referrals Name Type Priority Associated Diagnoses Order Schedule Otorhinolaryngology office visit (clinic) Outpatient Referral Routine Expected: 06/17/2024, Expires: 09/17/2025 documented as of this encounter Visit Diagnoses Not on filedocumented in this encounter Care Teams Floor Service Worker Spring Relationship Specialty Start Date End Date Elsewhere, Pcp PCP - General Internal Medicine 02/26/24 documented as of this encounter
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
--- OUTSIDE RECORDS SUMMARY | 2024-08-10 05:58 | XMS_ITS | Encounter Summary ---
Author Organization [facility] Address [address] [place] [address] Care Team Providers Care Continuous Dryout Operator Helper Name Role Phone Elsewhere, Pcp Primary [...] In the past 12 months has e [employer], gas, oil, or water [employer] threatened to shut off services in your [...] CDT Comprehensive Visit Department of Neurology in [place], [place] 200 [place] [phone] Cristiane Palacio, GRUPO, C.N.P., D.N.P. [address] [place] [phone] Kriss Wharton M.S., [facility]-SUSTAINABILITY COMMUNICATOR [address] [place] [phone] 08/15/2024 9:00 AM CDT Appointment Department of Radiology, [facility], in [place], [place] [address] [place] [phone] Cristiane Palacio APRN C.N.P., D.N.P. [address] [place] [phone] Kriss Wharton M.S., CCC-SUSTAINABILITY COMMUNICATOR [address] [place] [phone] 08/15/2024 9:45 AM CDT Clinical Support Department of Neurology in [address] [phone] Cristiane Palacio APRN, C.N.P., D.N.P. [address] [place] [phone] Kriss Wharton M.S., CCC-SUSTAINABILITY COMMUNICATOR [address] [place] [phone] 08/15/2024 1:00 PM CDT Office Visit Department of Otorhinolaryngology in [address] [phone] Rafal Rankin M.D. [address] [place] [phone] 08/15/2024 2:30 PM CDT Ancillary Procedure Department of Ophthalmology in [address] [phone] Kandace Shankar M.D. [address] [place] [phone] 08/15/2024 3:00 PM CDT Comprehensive Visit Department of Ophthalmology in [place], [place] [address] [place] [phone] Peña Carver M.D. [address] [place] [phone] 08/15/2024 4:15 PM CDT Office Visit Department of Ophthalmology in [place], [place] [address] [place] [phone] Kandace Shankar M.D. [address] [place] [phone] 08/20/2024 3:00 PM CDT Appointment Division of Gastroenterology in [place], [place] [address] [place] [phone] Cristiane Palacio APRN, C.N.P., D.N.P. [address] [place] [phone] 08/22/2024 4:20 PM CDT Telemedicine Division of Gastroenterology in [place], [place] [address] [place] [phone] Swapnil Jaramillo M.D. [address] [place] [phone] 10/22/2024 8:30 AM RADIOTELEPHONE OPERATOR Clinical Communication Virtual Review in [place], [place] 200 [place] [phone] 10/25/2024 10:30 AM RADIOTELEPHONE OPERATOR Comprehensive Visit Department of Neurology in [place], [place] [address] [place] [phone] Oziel Odonnell M.D. [address] [place] [phone] documented as of this encounter Procedures Procedure [...] on filedocumented in this encounter Care Teams Continuous Dryout Operator Helper Relationship Specialty Start Date End Date Elsewhere, Pcp PCP - General Internal Medicine 02/26/24 documented as of this encounter
--- OUTSIDE RECORDS SUMMARY | 2024-08-10 05:59 | XMS_ITS | Encounter Summary ---
Author Organization [facility] Address [address] [place] [address] Care Team Providers Care Electrical Solderer Name Role Phone Elsewhere, Pcp Primary Care Provider Unavailabl e Encounter Details Date Type Department Care Team (Latest Contact Info) Description 05/03/2024 4:17 PM CDT - 05/03/2024 11:59 PM CDT Hospital Encounter Department of Laboratory Medicine and Pathology, [facility] in [place], [place] [address] [place] [address] Stan Hernandez M.D. Dysphagia; Diarrhea; Heartburn Discharge Disposition: Home or Self Care Social History Tobacco Use Types Packs/Day Years Used Date Smoking Tobacco: Former Cigarettes Smokeless Tobacco: Never Alcohol Use Standard Drinks/Week Comments Not Currently 0 (1 standard drink = 0.6 oz pur e alcohol) [facility] Utilities Answer Date Recorded In [...] your living situation today? I have a [facility] place to live 03/12/2024 Sex and [...] 1 each daily. durable medical equipment (DME). [employer] feed bag Ref# [id number]. Change bag every 24 hours. 03/27/2024 UNABLE [...] CDT Comprehensive Visit Department of Neurology in [place], [place] 200 [place] [phone] Cristiane Palacio, GRUPO, C.N.P., D.N.P. [address] [place] [phone] Kriss Wharton M.S., [facility]-LIBRARY MEDIA SPECIALIST 200 [place] [phone] 08/15/2024 9:00 AM CDT Appointment Department of Radiology, [facility], in [place], [place] [address] [place] [phone] Cristiane Palacio APRN C.N.P., D.N.P. [address] [place] [phone] Kriss Wharton M.S., [facility]-LIBRARY MEDIA SPECIALIST [address] [place] [phone] 08/15/2024 9:45 AM CDT Clinical Support Department of Neurology in [place], [place] [address] [place] [phone] Cristiane Palacio APRN, C.N.P., D.N.P. [address] [place] [phone] Kriss Wharton M.S., [facility]-LIBRARY MEDIA SPECIALIST [address] [place] [phone] 08/15/2024 1:00 PM CDT Office Visit Department of Otorhinolaryngology in [address] [phone] Rafal Rankin M.D. [address] [place] [phone] 08/15/2024 2:30 PM CDT Ancillary Procedure Department of Ophthalmology in [address] [phone] Kandace Shankar M.D. [address] [place] [phone] 08/15/2024 3:00 PM CDT Comprehensive Visit Department of Ophthalmology in [address] [phone] Peña Carver M.D. [address] [place] [phone] 08/15/2024 4:15 PM CDT Office Visit Department of Ophthalmology in [place], [place] [address] [place] [phone] Kandace Shankar M.D. [address] [place] [phone] 08/20/2024 3:00 PM CDT Appointment Division of Gastroenterology in [place], [place] [address] [place] [phone] Cristiane Palacio, SUTURE WINDER HAND, C.N.P., D.N.P. [address] [place] [phone] 08/22/2024 4:20 PM CDT Telemedicine Division of Gastroenterology in [place], [place] [address] [place] [phone] Swapnil Jaramillo M.D. [address] [place] [phone] 10/22/2024 8:30 AM ALARM SECURITY OR SURVEILLANCE MONITOR Clinical Communication Virtual Review in [place], [place] 200 [place] [phone] 10/25/2024 10:30 AM ALARM SECURITY OR SURVEILLANCE MONITOR Comprehensive Visit Department of Neurology in [place], [place] [address] [place] [phone] Oziel Odonnell M.D. [address] [place] [phone] documented as of this encounter Procedures Procedure [...] M.D. LAB MICROBIOLOG Y - GENERAL ORDERABLES [address] [address], [facility] DTL [facility] 200 [place] [address] documented in this encounter Visit Diagnoses Diagnosis Dysphagia Diarrhea Heartburn documented in this encounter Care Teams Electrical Solderer Relationship Specialty Start Date End Date Elsewhere, Pcp PCP - General Internal Medicine 02/26/24 documented as of this encounter
--- OUTSIDE RECORDS SUMMARY | 2024-08-10 05:59 | XMS_ITS | Clinical Summary ---
Author Organization [facility] Address [place], [place] [address] Care Team Providers Care Nuclear Plant Construction Worker Name Role Phone Sandy Matta DO Primary [...] nasal solution (FLONASE)Indicatio ns:Nasal obstruction Inhale 1 [place] into affected nostril(s) two times daily. 16 g 3 01/31/2024 Active traZODone (DESYREL) 50 mg tablet Administer 50 mg through feeding tube. 10/10/2023 Active durable medical equipment (DME)Indications:G astrojejunostomy tube status (HC) 12ml enteral syringe NeoMed with ENFIT CONNECTOR 6 Each 03/19/2024 Active durable medical equipment (DME)Indications:O n tube feeding diet [facility] feed bag Ref# [id number] Each 11 03/27/2024 Active escitalopram oxalate [...] Description 08/05/2024 2:15 PM CDT Office Visit [facility] [address] [place] [address] Sandy Matta DO Medicare ANNUAL (subsequent) Visit (68 yr); Immunization/Inject ion 08/05/2024 Travel 07/25/2024 Orders Only [facility] Scanner 1 scan: (1-Ord) [facility], CHEST 2V, 07/25/2024 07/25/2024 Orders Only [facility] Scanner 1 scan: (1-Ord) [place], XR ABDOMEN 1V, 07/25/2024 07/24/2024 11:30 AM CDT Ancillary Procedure [facility] [address] [place] [address] 07/24/2024 10:40 AM CDT Office Visit [facility] [address] [place] [address] Sandy Matta DO Vomiting; Medication Management (augmentin) 07/24/2024 Travel 07/24/2024 Telephone [facility] [address] [place] [address] Sandy Matta DO FYI (Complications) 07/14/2024 Travel 07/05/2024 1:50 PM CDT Office Visit [facility] [address] [place] [address] Sandy Matta DO Medication Management (lexapro is helping) 07/05/2024 Travel 07/02/2024 Travel 06/03/2024 Telephone [facility] [address] [place] [address] Sandy Matta DO Home Care 06/03/2024 Patient Outreach [facility] [address] [place] [address] Sandy Matta DO Home Care 05/30/2024 1:28 PM CDT - 05/30/2024 11:59 PM CDT Hospital Encounter [address] [address] Sandy Matta DO Tierney, Doreen A, FLOR 05/30/2024 Travel 05/23/2024 2:14 PM CDT - 05/23/2024 11:59 PM CDT Hospital Encounter [address] [place] [address] Sandy Matta DO Tierney, Doreen A, SLP 05/23/2024 Travel 05/21/2024 2:12 PM CDT - 05/21/2024 11:59 PM CDT Hospital Encounter [address] [place] [address] Sandy Matta DO Tierney, Doreen A, SLP 05/21/2024 Travel 05/13/2024 2:24 PM CDT - 05/13/2024 11:59 PM CDT Hospital Encounter [address] [address] Sandy Matta DO Tierney, Doreen A, SLP 05/13/2024 11:00 AM CDT Ancillary Procedure [facility] [address] [place] [address] 05/13/2024 10:35 AM CDT Office Visit [facility] [address] [place] [address] [facility] F/U (1 week follow up - still feeling sob / hard to catch breathe, feeling tired, queasy ) 05/13/2024 Travel 05/10/2024 12:59 PM CDT - 05/10/2024 11:59 PM CDT Hospital Encounter [address] [address] Sandy Matta DO Tierney, Doreen A, SLP 05/10/2024 Travel from Last 3 Months Immunizations Name Administration Dates Next Due AMB Influenza, IIV3 (Age >=3 years)(Flu Clinic Only) 08/07/2013,10/21/2009,09/05/2008 AMB Influenza, IIV4 PF (=>6 mos Flulaval,Fluzone Fluarix)(Flu Clinic Only) 08/04/2020,08/15/2019,07/31/2014 COVID-19 vaccine (Moderna 100mcg/0.5mL) PF, MDV 01/24/2021,12/29/2020 COVID-19 vaccine (Edvivo 30mcg/0.3mL) PF, MDV 10/11/2021 Influenza A (H1N1), [...] Sex Assigned at Male 10/03/2020 9:54 PM FIBERGLASS FABRICATOR Gender Identity Not on file Sexual Orientation [...] polyps ANTI HCV Routine 12/07/2015 8:46 AM FIBERGLASS FABRICATOR Need for hepatitis C screening test from [...] mg/dL 06/08/2023 12:14 AM CDT [facility] Comment: Cholesterol, Total Reference Ranges Desirable <200 mg/dL Borderline 200-239 mg/dL High >=240 mg/dL TRIGLYCERIDES 132 <150 mg/dL 06/08/2023 12:14 AM CDT [facility] HDL CHOLESTEROL 72 >40 mg/dL 12:14 AM CDT [facility] NON-HDL CHOLESTEROL 156(H) <145 mg/dl 06/08/2023 12:14 AM CDT [facility] CHOL/HDL RATIO 3.17 <4.50 06/08/2023 12:14 AM CDT [facility] LDL CHOLESTEROL 130 <=130 mg/dL 06/08/2023 12:14 AM CDT [facility] VLDL CHOLESTEROL 26 <=30 mg/dL 06/08/2023 12:14 AM CDT [facility] PROVIDER ORDERED STATUS RANDOM 06/08/2023 12:14 AM CDT [facility] Blood BLOOD SPECIMEN / Unknown Venipuncture / Unknown 06/07/2023 2:09 PM CDT 06/07/2023 2:09 PM CDT Sandy Matta DO CHEMISTRY [facility] [address] [place] [address], * COLONOSCOPY SCREENING (06/14/2021 12:00 AM CDT) Sandy Matta DO GI PROCEDURE ORD * ANTI HCV [81171.2] (12/07/2015 8:46 AM FIBERGLASS FABRICATOR) HEPATITIS C ANTIBODY Non-Reacti ve Non-Reacti ve 12/07/2015 1:24 PM FIBERGLASS FABRICATOR [facility] Blood specimen (specimen) BLOOD SPECIMEN / Unknown Venipuncture / Unknown 12/07/2015 8:46 AM FIBERGLASS FABRICATOR 12/07/2015 8:46 AM FIBERGLASS FABRICATOR Narrative [facility] - 12/07/2015 1:24 PM FIBERGLASS FABRICATOR Antibodies to HCV not detected; does not exclude the possibility of exposure to HCV. Sandy Matta DO SEND OUTS Performing Organization Address City/[facility]/ZIP Co de Phone Number [facility] [address] [place] [address], from Last 3 Months or Most Recently Relevant to Health Maintenance Advance Directives * Full Code (Latest Code Status on File) Date Activated Date Inactivated Comments 09/18/2013 12:03 AM 09/19/2013 1:12 PM Care Teams Nuclear Plant Construction Worker Relationship Specialty Start Date End Date [place] [address] [place] [address] PCP - General Family Practice 11/12/15
--- OUTSIDE RECORDS SUMMARY | 2024-08-10 05:59 | XMS_ITS | Encounter Summary ---
Author Organization [facility] Address [address] [place] [address] Care Team Providers Care Automotive Hardware Engineer Name Role Phone Elsewhere, Pcp Primary Care Provider Unavailabl e Reason for Visit * Reason Onset Date Comments Previsit Preparation 05/02/2024 DEBORAH DD Encounter Details Date Type Department Care Team (Latest Contact Info) Description 05/02/2024 9:00 AM CDT Clinical Communication Virtual Review in [place], [place] [address] [place] [address] Previsit Preparation (DEBORAH DD) Social History Tobacco [...] CDT Comprehensive Visit Department of Neurology in [place], [place] 200 [place] [address] Cristiane Palacio, GRUPO, C.N.P., D.N.P. 200 [place] [address] Kriss Wharton M.S., [facility] [address] [place] [phone] 08/15/2024 9:00 AM CDT Appointment Department of Radiology, [facility], in [place], [place] [address] [place] [phone] Cristiane Palacio APRN C.N.P., D.N.P. [address] [place] [phone] Kriss Wharton M.S., [facility] [address] [place] [phone] 08/15/2024 9:45 AM CDT Clinical Support Department of Neurology in [place], [place] [address] [place] [phone] Cristiane Palacio APRN, C.N.P., D.N.P. [address] [place] [phone] Kriss Wharton M.S., [facility] [address] [place] [phone] 08/15/2024 1:00 PM CDT Office Visit Department of Otorhinolaryngology in [place], [place] [address] [place] [phone] Rafal Rankin M.D. [address] [place] [phone] 08/15/2024 2:30 PM CDT Ancillary Procedure Department of Ophthalmology in [address] [phone] Kandace Shankar M.D. [address] [place] [phone] 08/15/2024 3:00 PM CDT Comprehensive Visit Department of Ophthalmology in [place], [place] [address] [place] [phone] Peña Carver M.D. [address] [place] [phone] 08/15/2024 4:15 PM CDT Office Visit Department of Ophthalmology in [place], [place] [address] [place] [phone] Kandace Shankar M.D. [address] [place] [phone] 08/20/2024 3:00 PM CDT Appointment Division of Gastroenterology in [place], [place] [address] [place] [phone] Cristiane Palacio, GRUPO, C.N.P., D.N.P. [address] [place] [phone] 08/22/2024 4:20 PM CDT Telemedicine Division of Gastroenterology in [place], [place] [address] [place] [phone] Swapnil Jaramillo M.D. [address] [place] [phone] 10/22/2024 8:30 AM DRIER BELT CONVEYOR Clinical Communication Virtual Review in [place], [place] [address] [place] [phone] 10/25/2024 10:30 AM DRIER BELT CONVEYOR Comprehensive Visit Department of Neurology in [place], [place] [address] [place] [phone] Oziel Odonnell M.D. [address] [place] [phone] documented as of this encounter Visit Diagnoses Not on filedocumented in this encounter Care Teams Automotive Hardware Engineer Relationship Specialty Start Date End Date Elsewhere, Pcp PCP - General Internal Medicine 02/26/24 documented as of this encounter
--- OUTSIDE RECORDS SUMMARY | 2024-08-10 05:59 | XMS_ITS | Encounter Summary ---
Author Organization [facility] Address [address] [place] [id number] Care Team Providers Care Information Services Vice President Name Role Phone Elsewhere, Pcp Primary Care Provider Unavailabl e Reason for Visit * Outpatient (Routine) - Closed Specialty Diagnoses / Procedures Referred By Contact Referred To Contact Gastroenterology and Hepatology Diagnoses Dysphagia Gastroparesis Rafal Rankin M.D. [address] [place] [phone] [facility] Referral ID Status Reason Start Date Expiration Date Visits Re quested Visits Authorized [id number] Closed 03/19/2024 09/18/2025 1 1 Encounter Details Date Type Department Care Team (Latest Contact Info) Description 05/03/2024 2:10 PM CDT Comprehensive Visit Division of Gastroenterology in [place], [place] [address] [place] [phone] Rafal Rankin M.D. [address] [place] [address] [phone] Stan Hernandez M.D. Heartburn (Primary Dx); Dysphagia; Gastroparesis; Diarrhea Social History Tobacco Use Types Packs/Day Years Used Date Smoking Tobacco: Former Cigarettes Smokeless Tobacco: Never Alcohol Use Standard Drinks/Week Comments Not Currently 0 (1 standard drink = 0.6 oz pur e alcohol) [facility] Utilities Answer Date Recorded In [...] your living situation today? I have a [facility] place to live 03/12/2024 Sex and [...] Supervisory note: Patient seen with fellow, Dr. Lie. Briefly, this is the case of a [...] interested in having G-J tube exchanged at [facility] [place]: we will look into this. Agree with [...] bowel movements a day of watery stools ([place] 7). He had recent started Imodium 2 [...] CDT Comprehensive Visit Department of Neurology in [address] [phone] Cristiane Palacio APRN, C.N.P., D.N.P. [address] [place] [address] [phone] Kriss Wharton M.S., [facility] [address] [place] [address] [phone] 08/15/2024 9:00 AM CDT Appointment Department of Radiology, [facility], in [address] [phone] Cristiane Palacio APRN, C.N.P., D.N.P. [address] [place] [phone] Kriss Wharton M.S., [facility] [address] [place] [phone] 08/15/2024 9:45 AM CDT Clinical Support Department of Neurology in [address] [phone] Cristiane Palacio APRN, C.N.P., D.N.P. [address] [place] [address] [phone] Kriss Wharton M.S., [facility] [employer] [address] [place] [phone] 08/15/2024 1:00 PM CDT Office Visit Department of Otorhinolaryngology in [place], [place] [address] [place] [phone] Rafal Rankin M.D. [address] [place] [phone] 08/15/2024 2:30 PM CDT Ancillary Procedure Department of Ophthalmology in [place], [place] [address] [place] [phone] Kandace Shankar M.D. [address] [place] [phone] 08/15/2024 3:00 PM CDT Comprehensive Visit Department of Ophthalmology in [place], [place] [address] [place] [phone] Peña Carver M.D. [address] [place] [phone] 08/15/2024 4:15 PM CDT Office Visit Department of Ophthalmology in [place], [place] [address] [place] [phone] Kandace Shankar M.D. [address] [place] [phone] 08/20/2024 3:00 PM CDT Appointment Division of Gastroenterology in [place], [place] [address] [place] [address] [phone] Cristiane Palacio, GRUPO, C.N.P., D.N.P. [address] [place] [phone] 08/22/2024 4:20 PM CDT Telemedicine Division of Gastroenterology in [place], [place] [address] [place] [phone] Swapnil Jaramillo M.D. [address] [place] [phone] 10/22/2024 8:30 AM RAILWAY SWITCHMAN Clinical Communication Virtual Review in [place], [place] 200 [place] [phone] 10/25/2024 10:30 AM RAILWAY SWITCHMAN Comprehensive Visit Department of Neurology in [place], [place] [address] [place] [phone] Oziel Odonnell M.D. [address] [place] [phone] documented as of this encounter Results * Clostridioides (Clostridium) Difficile Toxin, Molecular Detection, PCR, Feces (05/09/2024 8:50 AM CDT) C. difficile Toxin, F Negative Negative 05/09/2024 12:00 PM CDT DTL Stool (Stool) 05/09/2024 8:5 0 AM CDT 05/09/2024 9:40 AM CDT Stan Izaguirre M.D. LAB MICROBIOLOG Y - GENERAL ORDERABLES [facility] 200 [place] [address], [facility] DTL [facility] 200 [place] [address] documented in this encounter Visit Diagnoses Diagnosis Heartburn- Primary Dysphagia Gastroparesis Diarrhea documented in this encounter Care Teams Information Services Vice President Relationship Specialty Start Date End Date Elsewhere, Pcp PCP - General Internal Medicine 02/26/24 documented as of this encounter
== END 2024-08-09 01:37 | disposition home or self-care (01) ==
LOC: AMB 08-10 05:54
PROVIDERS: PCP Family Medicine; Visit Provider Internal Medicine
DX: R06.02 Shortness of breath (principal); R50.9 Fever, unspecified
CPT/HCPCS: A0425; A0427

== ENCOUNTER 2024-08-09 02:03 | Inpatient (IN) | payer MEDICARE, BC, SELFPAY ==
[2024-08-09] VITALS (18 sets, daily range): BP systolic 99–125; BP diastolic 59–70; PULSE 88–126; RESP 16–24; TEMP 36.7–39.3; O2SAT 91–97; BMI 24.4; BMI 22.1; BMI 22.0
--- NOTE | 2024-08-09 02:07 | CRLHL7_ITS ---
For Patients: As a result of the Century Cures Act, medical imaging exams and procedure reports are released immediately into your electronic medical record. You may view this report before your referring provider. If you have questions, please contact your health care provider. INDICATION: Shortness of breath TECHNIQUE: Chest radiograph 1 view COMPARISON: 07/25/2024 FINDINGS: Mediastinum: The mediastinum is normal in appearance. The heart silhouette is normal in size and morphology. Lung: The right apex is obscured by oxygen mask tubing. Mild bibasilar airspace infiltrates are present. No sign of pleural effusion seen. No pneumothorax is identified. Bone and Soft tissue: Unremarkable for age. IMPRESSION: 1. Mild bibasilar airspace infiltrates are present. These findings can be seen with atelectasis and/or pneumonia. Dictated by Terrence Arellano MD @ 08/09/2024 2:39:12 AM Dictated by: Terrence Arellano MD @ 08/09/2024 02:39:14 (Electronically Signed)
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
[2024-08-09] MEDS: IPRAT-ALBUT 0.5-2.5 MG/3 ML NEB 1 NEB IH (02:16)
[2024-08-09] MEDS: 0.9 % SODIUM CHLORIDE 500 ML 500 ML IV (02:20)
[2024-08-09 02:29] LABS: Lactate* 1.6 mmol/L (0.5-1.9)
[2024-08-09 02:30] LABS: Basophils Percent Auto 0.4 % (0.0-3.0); Hematocrit 38.9 % (37.0-53.0); Hemoglobin* 12.7 gm/dL (13.5-17.5); Immature Granulocytes Pct Auto 0.4 %; Lymphocytes Percent Auto 8.9 % (20-44); Mean Corpuscular HGB Conc 33 gm/dL (32-36); Mean Corpuscular Hemoglobin 31 pg (26-34); Mean Corpuscular Volume 95 fL (80-100); Monocytes Percent Auto 3.6 % (0.0-11.0); Neutrophils Percent Auto 86.7 % (42.0-72.0); Platelet Count* 106 K/uL (140-440); Red Blood Count 4.09 m/uL (4.30-5.90); White Blood Count* 2.47 K/uL (4.50-11.00)
[2024-08-09 02:38] LABS: ABG PCO2 48 mmHG (35-45); Base Excess ABG 6.2 mmol/L (-3.0-3.0); HCO3 ABG 32 mmol/L (21-28); Oxygen Saturation ABG 94 % (92-100); PO2 ABG 62.2 mmHG (80-105); TCO2 ABG 29 mmol/l (21-30); pH ABG 7.43 (7.35-7.45)
[2024-08-09 02:40] LABS: Slide Review Reflex No
--- OUTSIDE RECORDS SUMMARY | 2024-08-09 02:42 | XMS_ITS | Clinical Summary ---
Author Organization [place] Address [address] [place] [address] Care Team Providers Care Cooler Deliverer Name Role Phone JurgenTami OD Unavailable [phone] Sandy Matta MD Primary Care Provider [phone] Tami Seaman OD Unavailable [phone] Guy Yost MD Unavailable +- [phone] Allergies Active Allergy Reactions Criticality Noted Date [...] sodium chloride (OCEAN) 0.65 % nasal spray Ina 1-2 sprays in nostril 12/07/2023 Active traZODone [...] therapy packIndications:O ropharyngeal dysphagia,Recurre nt aspiration pneumonia Take as directed per patient instruction card 21 tablet 07/16/2024 Active azithromycin (ZITHROMAX) 250 MG tabletIndications :Oropharyngeal dysphagia,Recurre nt aspiration pneumonia Take 2 tablets (500 mg) by mouth daily for 1 day, THEN 1 tablet (250 mg) daily for 4 days. 6 tablet 07/16/2024 07/21/2024 Active Problems No known active problems Encounters Date Type Department Care Team Description 07/19/2024 MyC Medical Advice [facility] Voice [address] [phone] Jeronimo Guido, FLOR 07/17/2024 MyC Medical Advice [facility] Ear Nose and Throat [address] [address] Elaina Cervantes MD 07/16/2024 3:30 PM CDT Therapy Visit [facility] Rehabilitation Services [address] [phone] Maryann Wilhelm Dysphagia, oropharyngeal phase (Primary Dx) 07/16/2024 2:45 PM CDT Office Visit [address] [phone] Sandy Matta MD Provider, Ent Dysphonia Blending Line Attendant Dysphonia (Primary Dx); Inspiratory stridor; Bilateral vocal fold paralysis 07/16/2024 2:45 PM CDT Office Visit [facility] Ear Nose and Throat [address] [phone] Sandy Matta MD Gray, Raluca, MD Dysphonia (Primary Dx); Oropharyngeal dysphagia; 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, sequela; Recurrent aspiration pneumonia (H) 07/16/2024 Travel 07/16/2024 PRE VISIT [facility] Ear Nose and Throat [address] [address] Elaina Cervantes MD Previsit 07/12/2024 Travel from [...] ANNUAL WELLNESS VISIT 06/07/2024 06/07/2023, 01/12/2022, 10/07/2020 COVID-19 Vaccine ( season) 2024 04/22/2024, 10/11/2023, 10/24/2022, Additional history exists INFLUENZA VACCINE (#1) 2024 , 07/22/2022, 07/22/2022, Additional history exists RSV VACCINE (1 - 1-dose 75+ series) 2030 COLONOSCOPY 06/14/2031 06/14/2021 COLORECTAL CANCER SCREENING 06/14/2031 DTAP/TDAP/TD IMMUNIZATION (4 - Td or Tdap) 08/14/2033 08/14/2023, 07/22/2022, 05/04/2012, Additional history exists ZOSTER IMMUNIZATION Completed 08/24/2018, 06/15/2018, 05/04/2012 Pneumococcal Vaccine: 65+ Years Completed 06/07/2023, 01/12/2022 PHQ-2 (once per calendar year) Completed 01/09/2024, 10/13/2023 HPV IMMUNIZATION Aged Out No longer e ligible based on patient's age to complete this topic MENINGITIS IMMUNIZATION Aged Out No l onger eligible based on patient's age to complete this topic RSV MONOCLONAL ANTIBODY Aged Out No l onger eligible based on patient's age to complete this topic Procedures Procedure Name Priority Date/Time Associated Diagnosis Comments [place] BEHAVIORAL & QUALITATIVE ANALYSIS VOICE AND RESONANCE Routine 07/23/2024 11:47 AM CDT Dysphonia Inspiratory stridor Bilateral vocal fold paralysis SC LARYNGOSCOPY FLEX FIBEROPTIC, DIAGNOSTIC Routine 07/16/2024 3:47 PM CDT Oropharyngeal dysphagia IMAGESTREAM RECORDING ORDER Routine 07/16/2024 3:27 PM CDT Dysphonia from Last 3 Months Results * IMAGESTREAM RECORDING ORDER (07/16/2024 3:27 PM CDT) 07/16/2024 3:27 PM CDT Elaina Cervantes MD OTHER RADIOLOGY RESULTS from Last 3 Months Care Teams Cooler Deliverer Relationship Specialty Start Date End Date Sandy Matta MD [address] [place] [address] PCP - General Family Medicine 09/18/23 Annabelle Seamanissa, OD [address] [place] [id number] Optometry 09/18/23 Tami Seaman, OD [address] [place] [address] [id number] Assigned Surgical Provider 10/14/23 Guy Yost MD [address] [place] [address] [id number] Otolaryngology 01/22/24
--- OUTSIDE RECORDS SUMMARY | 2024-08-09 02:42 | XMS_ITS | Encounter Summary ---
Author Organization [place] Address [address] [place] [address] Care Team Providers Care Manager Landscape Name Role Phone Tami Seaman OD Unavailable [phone] Sandy Matta MD Primary Care Provider [phone] Tami Seaman OD Unavailable [phone] Guy Yost MD Unavailable + [phone] Encounter Details Date Type Department Care Team (Late st Contact Info) Description 07/17/2024 [facility] Medical Advice [facility] [address] [place] [address] Elaina Cervantes MD [address] [place] [address] Social History Tobacco Use Types Packs/Day [...] on filedocumented in this encounter Care Teams Manager Landscape Relationship Specialty Start Date End Date [place] [address] [address] PCP - General Family Medicine 09/18/23 Tami Seaman, OD [address] [place] [address] Optometry 09/18/23 Tami Seaman, OD [address] [place] [address] Assigned Surgical Provider 10/14/23 Guy Yost MD [address] [place] [address] Otolaryngology 01/22/24 documented as of this encounter
--- OUTSIDE RECORDS SUMMARY | 2024-08-09 02:42 | XMS_ITS | Data Portability ---
Author Organization [place] [facility] [place] [facility] Address [address] [place] [address] Care Team Providers Care Natural Foods Clerk Name Role JANINE Travis Primary Care Provider [phone] Assessment Encounter Date Assessment Date Assessment LastModified [...] Orders finasteride 5 mg tablet 2022 023 [id number], [address], [address], 13:29:16 tadalafil 5 mg tablet 2022 023 [id number], [address], [address], 4 15:29:43 finasteride 5 mg tablet 2022 023 MARANDA [id number], [address], [address], 11:16:37 alfuzosin ER 10 mg tablet,exte nded release 24 hr 2022 023 [id number], [address], [address], 15:29:48 Patient TargetsNo targets recorded. Patient InstructionsNo [...] 4 COMPLEX VISIT completed Siddhartha Cleary MD [address] [place] [address],[address], [address], [facility] 12/27/2023 18:04:21 4 Bladder Scan completed Siddhartha Cleary MD [address] [place] [address],[address], [address], [facility] 12/27/2023 15:30:21 3 Bladder Scan cancelled Siddhartha Cleary MD [address] [place] [address],[address], [address], [facility] 08/24/2023 09:05:59 3 UroCuff completed Ivanna Martinez [facility] 05/11/2023 13:37:35 3 Bladder Scan completed Ivanna Martinez [facility] 05/11/2023 13:36:20 Bladder Scan completed Margie Lewis [facility] 02/15/2023 11:22:06 procedure on lower leg completed Margie Lewis [facility] 02/15/2023 11:19:56 procedure on nose completed Margie Lewis [facility] 02/15/2023 11:20:10 procedure on eyelid completed Margie Lewis [facility] 02/15/2023 11:20:18 Imaging Results Imaging Date Name [...] Name and Address Organization Details Recorded Time 425085 tolmetin sodium medicatio n hives Not available Not available 02/15/2023 55311 RxNorm Margie Riddle rod campo, [facility] 11:18:20 Medications Name Sig Start Date Stop [...] Updated DateTime 02/15/2023 182.88 cm 23.7 kg/m2 37745.66 derrell Lewis [facility] 02/15/2023 11:17:47 Date Recorded Body height Body mass index (BMI) Body weight Provider Name and Address Organization Details Last Updated DateTime 05/17/2023 182.88 cm 24.4 kg/m2 94220.63 derrell Cleary MD [address] [place] [address], [address], [facility] 05/17/2023 10:52:26 Date Recorded Body height Body mass index (BMI) Body weight Provider Name and Address Organization Details Last Updated DateTime 12/27/2023 182.88 cm 19.1 kg/m2 50461.52 derrell Cleary MD [address] [place] [address],[address], [address] 12/27/2023 15:28:13 Social History Question Answer Notes LastModified by Organizat ion Details LastModified Time Tobacco Smoking Status Former Smoker Margie Lewis alber [facility] 02/15/2023 11:19:11 What Is Your Level [...] Age of this Age Resolved Age Notes LastModified by Organization Details LastModified Time Mother Family history of breast cancer rstromquist Not available 03/2023 11:18:54 Sister Family history of breast cancer rstromquist Not available 03/2023 11:18:54 Medical History Condition Response Other Y High Blood Pressure Y Kidney Stones N Lung Disease N Depression N GERD/Acid Reflux N Sexually Transmitted Infection N Cancer N High Cholesterol N Diabetes N Bleeding Disorder N Heart Disease N Immunizations Vaccine Type Date Status Provider Name and Address Organization Details Recorded Time Influenza, split virus, quadrivalent, preservative 08/22/2016 charito campo [facility] 09/07/2023 17:07:16 zoster recombinant 06/15/2018 completed Dorys campo [facility] 09/07/2023 17:07:16 zoster recombinant 08/24/2018 charito campo [facility] 09/07/2023 17:07:16 Influenza, high-dose, quadrivalent, PF 09/02/2021 charito campo [facility] 09/07/2023 17:07:16 Influenza, adjuvanted, quadrivalent, PF 07/22/2022 charito campo [facility] 09/07/2023 17:07:16 COVID-19, mRNA, LNP-S, PF, 100 mcg/0.5mL dose or 50 mcg/0.25mL dose 12/29/2020 completed Dorys Lire null, [facility] 09/07/2023 17:07:16 COVID-19, mRNA, LNP-S, PF, 100 mcg/0.5mL dose or 50 mcg/0.25mL dose 01/24/2021 completed Dorys Lire null, [facility] 09/07/2023 17:07:16 COVID-19, mRNA, LNP-S, PF, 100 mcg/0.5mL dose or 50 mcg/0.25mL dose 02/28/2022 completed Dorys Lire null, [facility] 09/07/2023 17:07:16 COVID-19, mRNA, LNP-S, PF, 30 mcg/0.3 mL dose 10/11/2021 completed Dorys Ibarra null, [facility] 09/07/2023 17:07:16 COVID-19, mRNA, LNP-S, bivalent, PF, 30 mcg/0.3 mL dose 10/24/2022 completed Dorys campo, [facility] 09/07/2023 17:07:16 pneumococcal polysaccharide PPV23 01/12/2022 [facility] 17:07:16 Tdap 05/04/2012 [facility] 17:07:16 Novel [id number], all formulations 2009 completed Dorys campo, [facility] 09/07/2023 17:07:16 zoster live 05/04/2012 completed Dorys Ibarra null, [facility] 09/07/2023 17:07:16 Influenza, split virus, trivalent, preservative 08/07/2013 completed Dorys Lire null, [facility] 09/07/2023 17:07:16 Influenza, split virus, trivalent, preservative 08/27/2010 completed Dorys Lire null, [facility] 09/07/2023 17:07:16 Influenza, split virus, trivalent, preservative 09/05/2008 completed Dorys Almejere null, [facility] 09/07/2023 17:07:16 Influenza, split virus, trivalent, preservative 09/06/2007 completed Dorys Almejere null, [facility] 09/07/2023 17:07:16 Influenza, split virus, trivalent, preservative 09/09/2003 completed Dorys Almejere null, [facility] 09/07/2023 17:07:16 Influenza, split virus, trivalent, preservative 09/21/2005 completed Dorys Almejere null, [facility] 09/07/2023 17:07:16 Influenza, split virus, trivalent, PF 10/21/2009 completed Dorys Almejere null, [facility] 09/07/2023 17:07:16 Td (adult), 5 Lf tetanus toxoid, preservative free, adsorbed 07/12/2007 completed Dorys Almejere null, [facility] 09/07/2023 17:07:16 Td (adult), 2 Lf tetanus toxoid, preservative free, adsorbed 07/22/2022 completed Dorys Almejere null, [facility] 09/07/2023 17:07:16 Influenza, split virus, quadrivalent, PF 07/31/2014 completed Dorys Almejere null, [facility] 09/07/2023 17:07:16 Influenza, split virus, quadrivalent, PF 08/04/2020 completed Dorys Almejere null, [facility] 09/07/2023 17:07:16 Influenza, split virus, quadrivalent, PF 08/15/2019 completed Dorys Almejere null, [facility] 09/07/2023 17:07:16 Influenza, split virus, quadrivalent, PF 08/24/2018 completed Dorys Almejere null, [facility] 09/07/2023 17:07:16 Influenza, split virus, quadrivalent, PF 09/08/2017 completed Dorys Almejere null, [facility] 09/07/2023 17:07:16 Influenza, split virus, quadrivalent, PF 09/11/2015 completed Dorys Almejere null, [place] [facility] 09/07/2023 17:07:16 Past Encounters Encounter ID Performer Location Encounter Start Date Encounter Closed Date Diagnosis/Indication Diagnosis SNOMED-CT Code Diagnosis ICD10 Code [id number] Siddhartha Cleary MD [facility] 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 [place] [address] 05/11/2023 10:55:44 05/18/2023 11:24:31 Induration penis plastica 6093620 N48.6 Injury of penis 85869244 6 S30.93XD Slowing of urinary stream 45947442 R39.12 [id number] Siddhartha Cleary MD [facility] [address] [place] [address] 05/17/2023 10:47:54 05/22/2023 14:33:26 Induration penis plastica 5503396 N48.6 Injury of penis 24262637 6 S30.93XD Slowing of urinary stream 89525901 R39.12 Retrograde ejaculation 69040324 N53.14 [id number] Siddhartha Cleary MD [facility] [address] [place] [address] 12/27/2023 15:16:02 01/02/2024 14:10:57 Induration penis plastica 9487868 N48.6 Injury of penis 46418292 6 S30.93XD Slowing of urinary stream 31574536 R39.12 Retrograde ejaculation 88859715 N53.14 Health Concerns Section Related Observation LastModified by Organization Detai ls LastModified Time None Recorded Concern Status LastModified by Organization Details LastModified Time None Recorded Advance Directives Directive None Recorded Payers Encounter Date Sequence Insurance Name Policy Number Policy Cervantes Covered Member ID Cervantes Member ID Guarantor Name 02/15/2023 2 [place] [employer] [employer] Sher Guillen [id number] Vinh L Dresow 02/15/2023 1 [place] [employer] Vinh L Dresow [id number] Vinh L Dresow 05/11/2023 2 [facility] 113 Vinh L Dresow [id number] Vinh L Dresow 05/11/2023 1 [place] [facility] [employer] Vinh L Dresow [id number] Vinh L Dresow 05/17/2023 2 [facility] 113 Vinh L Dresow [id number] Vinh L Dresow 05/17/2023 1 [place] [facility] [employer] Vinh L Dresow [id number] Vinh L Dresow 12/27/2023 2 [facility] 113 Vinh L Dresow [id number] Vinh L Dresow 12/27/2023 1 [facility] [employer] Vinh L Dresow [id number] 3 Vinh L Dresow Notes Date Note [...] more of a bother. Siddhartha Cleary MD [address] [place] [address],[address], [address], [facility] 02/15/2023 13:31:06 05/17/2023 text/html HPI Notes: [...] atypical for him. Siddhartha Cleary MD [address] [facility],[address], [place], [address], [facility] 05/17/2023 11:37:51 12/27/2023 text/html HPI Notes: [facility] patient here for f/u history of [...] intensive care unit stay. Hospital notes from [facility] reviewed. Due to concerns of hypotension his tamsulosin was stopped. He is seen today with his provides some of the history. At current he reports his most bothersome symptom is nocturia. Siddhartha Cleary MD [address] [facility],[address], [place], [address], [facility] 12/27/2023 18:04:34
--- OUTSIDE RECORDS SUMMARY | 2024-08-09 02:42 | XMS_ITS | Encounter Summary ---
Author Organization [place] Address [address] [place] [address] Care Team Providers Care Toolroom Attendant Name Role Phone Tami Seaman OD Unavailable [phone] Sandy Matta MD Primary Care Provider [phone] Tami Seaman OD Unavailable [phone] Guy Yost MD Unavailable + [phone] Encounter Details Date Type Department Care Team (Late st Contact Info) Description 07/19/2024 [facility] Medical Advice [address] [place] [address] Jeronimo Guido, [address] [id number] Social History Tobacco Use Types Packs/Day Years [...] on filedocumented in this encounter Care Teams Toolroom Attendant Relationship Specialty Start Date End Date [place] [place] [address] PCP - General Family Medicine 09/18/23 Tami Seaman OD [address] [place] [address] Optometry 09/18/23 Tami Seaman, OD [address] [place] [address] Assigned Surgical Provider 10/14/23 Guy Yost MD [address] [place] [address] Otolaryngology 01/22/24 documented as of this encounter
--- OUTSIDE RECORDS SUMMARY | 2024-08-09 02:42 | XMS_ITS | Referral Summary ---
Author Organization [place] Address [address] [place] [address] Care Team Providers Care Technical Inspector Name Role Phone JurgenTami OD Unavailable [phone] Sandy Matta MD Primary Care Provider [phone] Tami Seaman OD Unavailable [phone] Guy Yost MD Unavailable + [phone] Encounters Date Type Department Care Team Description 07/19/2024 [facility] Medical Advice [facility] Voice [address] [phone] Jeronimo Guido, FLOR 07/17/2024 [facility] Medical Advice [facility] [address] [address] Elaina Cervantes MD 07/16/2024 Travel 07/16/2024 3:30 PM CDT Therapy Visit [facility] [address] [phone] Maryann Wilhelm Dysphagia, oropharyngeal phase (Primary Dx) 07/16/2024 PRE VISIT [facility]at [address] [phone] Elaina Cervantes MD Previsit 07/16/2024 2:45 PM CDT Office Visit [facility] Voice [address] [phone] Sandy Matta MD Provider, Ent Dysphonia Roll Repairer Dysphonia (Primary Dx); Inspiratory stridor; Bilateral vocal fold paralysis 07/16/2024 2:45 PM CDT Office Visit [facility] [address] 4th [place] [address] Sandy Matta MD Gray, Raluca, MD Dysphonia [...] sodium chloride (OCEAN) 0.65 % nasal spray [place] 1-2 sprays in nostril 12/07/2023 Active traZODone [...] Procedure Name Priority Date/Time Associated Diagnosis Comments [place] BEHAVIORAL & QUALITATIVE ANALYSIS VOICE AND RESONANCE Routine 07/23/2024 11:47 AM CDT Dysphonia Inspiratory stridor Bilateral vocal fold paralysis NV LARYNGOSCOPY FLEX FIBEROPTIC, DIAGNOSTIC Routine 07/16/2024 3:47 PM CDT Oropharyngeal dysphagia IMAGESTREAM RECORDING ORDER Routine 07/16/2024 3:27 PM CDT Dysphonia from Last 3 Months Results * IMAGESTREAM RECORDING ORDER (07/16/2024 3:27 PM CDT) 07/16/2024 3:27 PM CDT Elaina Cervantes MD OTHER RADIOLOGY RESULTS from Last 3 Months Care Teams Technical Inspector Relationship Specialty Start Date End Date Sandy Matta MD [address] [place] [address] PCP - General Family Medicine 09/18/23 Tami Seaman, OD [address] [place], [place] [address] Optometry 09/18/23 Tami Seaman, OD [address] [place], [place] 678155 Assigned Surgical Provider 10/14/23 Guy Yost MD [address] [place], [place] 6[address] Otolaryngology 01/22/24
--- OUTSIDE RECORDS SUMMARY | 2024-08-09 02:42 | XMS_ITS | Encounter Summary ---
Author Organization [place] Address [address] [place] [address] Care Team Providers Care Senior Technical Specialist Name Role Phone Jurgen Tami OD Unavailable [phone] Sandy aMtta MD Primary Care Provider [phone] Tami Seaman OD Unavailable [phone] Guy Yost MD Unavailable + [phone] Encounter Details Date Type Department Care Team [...] on filedocumented in this encounter Care Teams Senior Technical Specialist Relationship Specialty Start Date End Date Sandy Matta MD Paolo [place] [address] PCP - General Family Medicine 09/18/23 Tami Seaman OD [address] [place] [id number] Optometry 09/18/23 Tami Seaman OD [address] [place] [address] Assigned Surgical Provider 10/14/23 Guy Yost MD [address] [place] [address] Otolaryngology 01/22/24 documented as of this encounter
--- OUTSIDE RECORDS SUMMARY | 2024-08-09 02:42 | XMS_ITS | Encounter Summary ---
Author Organization [place] Address [address] [place] [address] Care Team Providers Care Hunting And Fishing Guide Name Role Phone JurgenTami OD Unavailable [phone] Sandy Matta MD Primary Care Provider [phone] Tami Seaman OD Unavailable [phone] Guy Yost MD Unavailable + [phone] Reason for Referral * Therapeutic Services (Routine: Next available opening) - Pending Review Specialty Diagnoses / Procedures Referred By Karine velasco Referred To Contact Diagnoses Dysphagia, oropharyngeal phase [facility] Machine Stuffer Automatic Ent [address] [facility] 4th [place] [address] Referral ID Status Reason Start Date Expiration Date V isits Requested Visits Authorized [id number] Pending Review 07/16/2024 07/16/2025 1 1 Question Answer Course of Action: Evaluation and Treatment Speech Treatment Diagnosis: Dysphagia Specialty Services: Clinical Swallow Study Scheduling Instructions: [facility] will call you to coordinate your care as prescribed by your provider. If you don't hear from a sales representative electric service within 2 business days, please call . Additional Information: does not need to be scheduled Comments Please be aware that coverage of these services is subject to the terms and limitations of your health insurance plan. Call member services at your health plan with any benefit or coverage questions. [facility] will call you to coordinate your care as prescribed by your provider. If you don't hear from a sales representative electric service within 2 business days, please call . Reason for Visit * Therapeutic Services (Routine: Next available opening) - Pending Review Specialty Diagnoses / Procedures Referred By Karine velasco Referred To Contact Diagnoses Dysphagia, oropharyngeal phase [facility] Machine Stuffer Automatic Ent [address] [place] [address] [address] [place] [address] Referral ID Status Reason Start Date Expiration Date V isits Requested Visits Authorized [id number] Pending Review 07/16/2024 07/16/2025 1 1 Encounter Details Date Type Department Care Team (Latest Contact Info) Description 07/16/2024 3:30 PM CDT Therapy Visit [address] [address] Maryann Wilhelm Dysphagia, oropharyngeal phase [...] Pt and report understanding. Maryann Wilhelm MS, CCC-CARE ASSISTANT Speech-Language Pathology [facility] Department of Otolaryngology/D&T - 4th floor Email: [email or web address] documented in this encounter Plan of Treatment Scheduled Referrals Name Type Priority Associated Diagnoses Orde r Schedule Speech Therapy Collections Representative Referral Referral Routine: Next available opening Dysphagia, oropharyngeal phase Expected: 07/16/2024 (Approximate), Expires: 07/16/2025 documented as of this encounter Visit Diagnoses Diagnosis Dysphagia, oropharyngeal phase- Primary documented in this encounter Care Teams Hunting And Fishing Guide Relationship Specialty Start Date End Date Sandy Matta MD [address] [place] [address] PCP - General Family Medicine 09/18/23 Tami Seaman, OD [address] [place], [place] [address] Optometry 09/18/23 Tami Seaman, OD [address] [place], [place] [address] Assigned Surgical Provider 10/14/23 Guy Yost MD [address] [place], [place] [address] Otolaryngology 01/22/24 documented as of this encounter
--- OUTSIDE RECORDS SUMMARY | 2024-08-09 02:43 | XMS_ITS | Encounter Summary ---
Author Organization [facility] Address [address] [place] [address] Care Team Providers Care Parlor Maid Name Role Phone Elsewhere, Pcp Primary Care Provider Unavailabl e Reason for Referral * Outpatient (Routine) - Closed Specialty Diagnoses / Procedures Referred By Karine velasco Referred To Contact Diagnoses Sialorrhea Procedures US Guidance Intraoperative Rafal Rankin M.D. [address] [place] [address] [facility] Referral ID Status Reason Start Date Expiration Date Visits Re quested Visits Authorized [id number] Closed 06/19/2024 06/19/2025 1 1 Reason for Visit * Auth/Cert (Routine) Specialty Diagnoses / Procedures Referred By Karine velasco Referred To Contact Diagnoses Sialorrhea Sialorrhea [K11.7] Procedures MT CHEMODENERV PAROTID SUBMAN INJECTION BOTOX TO SALIVARY GLANDS 100 units total (25 units into each gland), ULTRASOUND GUIDANCE; PROCEED INDICATED Rafal Rankin M.D. [address] [place] [address] Referral ID Status Reason Start Date Expiration Date Visits Re quested Visits Authorized [id number] 1 1 Encounter Details Date Type Department Care Team (Latest Contact Info) Description 07/23/2024 10:00 AM CDT - 07/23/2024 11:18 AM CDT Hospital Encounter Department of Radiology, [facility], in [place], [place] [address] [place] [address] Rafal Rankin M.D. [address] [place] [address] Sialorrhea Discharge Disposition: Home or Self Care Social History Tobacco Use Types Packs/Day Years Used Date Smoking Tobacco: Former Cigarettes Q uit: 1984 Smokeless Tobacco: Never Alcohol Use Standard Drinks/Week Comments Not Currently 0 (1 standard drink = 0.6 oz pur e alcohol) [facility] Utilities Answer Date Recorded In the past 12 months has [facility] [email or web address], gas, oil, or water [employer] threatened to shut off services in your [...] your living situation today? I have a [facility] place to live 03/12/2024 Sex and Gender Information Value Date Recorded Sex Assigned at Male 03/12/2024 1:38 PM CDT Gender Identity Male 03/12/2024 1:38 PM CDT Sexual Orientation Straight 03/12/2024 1: 38 PM CDT documented as of this encounter Medications at Time of Discharge Medication Sig Dispensed Refills Start Date End Date acetaminophen (TYLENOL) 325 mg tablet Administer 650 mg via gastric tube every 6 (six) hours as needed for pain or headaches. 10/10/2023 escitalopram (Lexapro) 20 mg tablet Take 20 [...] each nostril 2 (two) times a day. loperamide (Imodium A-D) 2 mg capsule Administer 2 mg via gastric tube 2 (two) times a day. mag/aluminum/sod bicarb/alginc (GAVISCON ORAL) 20 mL by g-tube route 3 (three) times a day. Gaviscon Double Action. prochlorperazine (COMPAZINE) 25 mg suppository Insert 25 mg into the rectum every 12 (twelve) hours as needed. 01/29/2024 tadalafiL (CIALIS) 5 mg tablet Administer 5 mg via gastric tube daily. traZODone (DESYREL) 50 mg tablet 50 mg by g-tube route at bedtime. 10/10/2023 UNABLE TO FIND 1 each daily. durable medical equipment (DME). Anival Kelley feed bag Ref# [id number]. Change bag every 24 hours. 03/27/2024 UNABLE TO FIND 1 each as needed (5 times daily for flushes as needed.). durable medical equipment (DME) 12ml enteral syringe NeoMed with ENFIT CONNECTOR. 03/19/2024 documented as of this encounter Plan of Treatment Upcoming Encounters Date Type Department Care Team (Latest Contact Info) Description 08/15/2024 8:00 AM CDT Comprehensive Visit Department of Neurology in [address] [phone] Cristiane Palacio APRN, C.N.P., D.N.P. [address] [place] [address] [phone] Kriss Wharton M.SEdith, [facility]-MANAGER HOME IMPROVEMENT [address] [place] [phone] 08/15/2024 9:00 AM CDT Appointment Department of Radiology, [facility], in [place], [place] [address] [place] [phone] Cristiane Palacio APRN, C.N.P., D.N.P. [address] [place] [address] [phone] Kriss Wharton M.S., [facility]-MANAGER HOME IMPROVEMENT [address] [place] [address] [phone] 08/15/2024 9:45 AM CDT Clinical Support Department of Neurology in [address] [phone] Cristiane Palacio APRN, C.N.P., D.N.P. [address] [place] [phone] Kriss Wharton M.S., CCC-MANAGER HOME IMPROVEMENT [address] [place] [address] [phone] 08/15/2024 1:00 PM CDT Office Visit Department of Otorhinolaryngology in [place], [place] [address] [place] [phone] Rafal Rankin M.D. [address] [place] [phone] 08/15/2024 2:30 PM CDT Ancillary Procedure Department of Ophthalmology in [place], [place] [address] [place] [address] [phone] Kandace Shankar M.D. [address] [place] [phone] 08/15/2024 3:00 PM CDT Comprehensive Visit Department of Ophthalmology in [place], [place] [address] [place] [phone] Peña Carver M.D. [address] [place] [address] [phone] 08/15/2024 4:15 PM CDT Office Visit Department of Ophthalmology in [place], [place] [address] [place] [phone] Kandace Shankar M.D. [address] [place] [phone] 08/20/2024 3:00 PM CDT Appointment Division of Gastroenterology in [place], [place] [address] [place] [phone] Cristiane Palacio, GRUPO, C.N.P., D.N.P. [address] [place] [address] [phone] 08/22/2024 4:20 PM CDT Telemedicine Division of Gastroenterology in [place], [place] [address] [place] [phone] Swapnil Jaramillo M.D. [address] [place] [phone] 10/22/2024 8:30 AM AEROSOL SUPERVISOR Clinical Communication Virtual Review in [place], [place] [address] [place] [phone] 10/25/2024 10:30 AM AEROSOL SUPERVISOR Comprehensive Visit Department of Neurology in [place], [place] [address] [place] [phone] Oziel Odonnell M.D. [address] [place] [address] [phone] documented as of this encounter Procedures Procedure [...] GUIDANCE INTRAOPERATIVE COMPARISON: None Procedure Note Rajendra Francsi M.D. - 07/23/2024 EXAM: US GUIDANCE INTRAOPERATIVE COMPARISON: None IMPRESSION: Using sterile technique and real-time ultrasound guidance a 25-gaugeneedle was inserted into each submandibular gland by Dr. Francis and 25 unitsof Botox was injected via the surgical team into each gland. Rafal MAHER PROCEDURES documented in this encounter Visit Diagnoses Diagnosis Sialorrhea documented in this encounter Care Teams Parlor Maid Relationship Specialty Start Date End Date Elsewhere, Pcp PCP - General Internal Medicine 02/26/24 documented as of this encounter
--- OUTSIDE RECORDS SUMMARY | 2024-08-09 02:43 | XMS_ITS | Encounter Summary ---
Author Organization [facility] Address [address] [place] [address] Care Team Providers Care Business Ethics Professor Name Role Phone JurgenTami OD Unavailable [phone] Sandy Matta MD Primary Care Provider [phone] Tami Seaman OD Unavailable [phone] Guy Yost MD Unavailable + [phone] Encounter Details Date Type Department Care Team (Late st Contact Info) Description 07/16/2024 2:45 PM CDT Office Visit [facility] [address]th [place] [address] Sandy Matta MD [address] [place] [address] [place] [address] Provider, Rashard Ent Dysphonia Air Reduction Equipment Operator Dysphonia (Primary Dx); Inspiratory stridor; Bilateral [...] Patient Instructions * Patient Instructions* Jeronimo Guido, FLOR - 07/16/2024 2:45 PM CDT Bud Justice, [...] do to help. -Zacarias Guido M.M., M.A., [facility]-APPLICATION INFRASTRUCTURE ENGINEER Speech-Language Pathologist Certificate of Vocology documented in this encounter Progress Notes * Jeronimo Guido SLP - 07/16/2024 2:45 PM CDT [facility] Evaluation report Clinician: Jeronimo Guido M.M., M.A., [facility]/APPLICATION INFRASTRUCTURE ENGINEER Seen in conjunction with: Dr. Cervantes Patient: [...] was seen by Dr. Rankin At the [facility] with discussion of possible avenues for intervention [...] SWALLOWING Please see my colleague Maryann Wilhelm CCC-APPLICATION INFRASTRUCTURE ENGINEER's note from today's date for full details [...] please see Dr. Cervantes and Maryann Wilhelm, CCC-APPLICATION INFRASTRUCTURE ENGINEER's notes from today's date for additional details [...] stressful 4 EAT-10 40 PERCEPTUAL EVALUATION (CPT 97971) POSTURE / TENSION: neck and shoulders BREATHING: [...] Dr. Cervantes and my colleague Bessie Wilhelm [facility]-APPLICATION INFRASTRUCTURE ENGINEER's notes from today's date. Patient will be seen in the future as recommended by the physician. Certification period: Evaluation only This treatment plan was developed with the patient who agreed with the recommendations. TOTAL SERVICE TIME: 45 minutes EVALUATION OF VOICE AND RESONANCE (50263) NO CHARGE FACILITY FEE (66049) Jeronimo Guido M.M., M.A., CCC-APPLICATION INFRASTRUCTURE ENGINEER Speech-Language Pathologist Certificate of Vocology [phone] *this report was created in part through the use of computerized dictation software, and though reviewed following completion, some typographic errors may persist. If there is confusion regarding anyof this notes contents, please contact me for clarification.* documented in this encounter Plan of Treatment Not on file documented as of this encounter Procedures Procedure Name Priority Date/Time Associated Diagnosis Comments PA BEHAVIORAL & QUALITATIVE ANALYSIS VOICE AND RESONANCE Routine 07/23/2024 11:47 AM CDT Dysphonia Inspiratory stridor Bilateral vocal fold paralysis documented in this encounter Visit Diagnoses Diagnosis Dysphonia- Primary Inspiratory stridor Stridor Bilateral vocal fold paralysis Bilateral complete paralysis of vocal cords or larynx documented in this encounter Care Teams Business Ethics Professor Relationship Specialty Start Date End Date Sandy Matta MD [address] [place] [address] PCP - General Family Medicine 09/18/23 Tami Seaman, OD [address] [place] [phone] Optometry 09/18/23 Tami Seaman, OD [address] [place] [address] [phone] Assigned Surgical Provider 10/14/23 Guy Yost MD [address] [place] [address] Otolaryngology 01/22/24 documented as of this encounter
--- OUTSIDE RECORDS SUMMARY | 2024-08-09 02:43 | XMS_ITS | Encounter Summary ---
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, sequela Recurrent aspiration pneumonia Sandy Matta MD [address] [place] [address] Guy Yost MD [address] [place] [address] Referral ID Status Reason Start Date Expiration Date V isits Requested Visits Authorized [id number] Pending Review 01/23/2024 01/22/2025 1 1 Encounter Details Date Type Department Care Team (Late st Contact Info) Description 07/16/2024 2:45 PM CDT Office Visit [facility] [address] [phone] Sandy Matta MD [address] [place] [address] Elaina Cervantes MD [address] [place] [address] Dysphonia (Primary Dx); Oropharyngeal dysphagia; Trauma to [...] or concerns after your appointment, please call [phone]. Press option #1 for scheduling related needs. Press option #3 for Nurse advice. 2. Dr. Cervantes has recommended the following: - Z-pack and medrol dose pack for breathing difficulties 3. Plan is to return to clinic as needed How to Contact Us: Send a Nulu message to your provider. Our team will respond to you via Nulu. Occasionally, wewill need to call you to get further information. For urgent matters (Monday-Monday, 8:00 AM-3:30 PM), call the ENT Clinic: [phone] and speak with a call center prepared foods service team member - they will route your call appropriately. If you'd like to speak directly with a nurse, please call [phone]. We do our best to check voicemail frequently throughout the day, and will work to call you back within 1-2 days. For urgent matters, please use the general clinic phone numbers listed above. Ivanna Cary [phone] [facility] - Otolaryngology documented in this encounter Progress Notes * Elaina Cervantes MD - 07/16/2024 3:30 PM CDT Images from the original note were not included. [facility] at the [facility] Otolaryngology Clinic Patient: Vinh Guillen : 1955 [...] in the past, recommend going back to [place] to compare exams and decide how they want to proceed Plan - return to [place] to compare exams - abx/steroids for any breathing worsening RETURN VISIT: pending [place] discussion Referring Provider PCP: Sandy Matta Referring Physician: Sandy Matta MD [address] [place] [address] Reason for Consultation Dysphagia Dyspnea History HISTORY [...] sodium chloride (OCEAN) 0.65 % nasal spray, Benton 1-2 sprays in nostril, Disp: , Rfl: [...] Resource Strain: Low Risk (01/26/2024) [facility] Financial Resource Strain Difficulty of Paying Living Expenses: 3 Difficulty of Paying Living Expenses: Not on file Food Insecurity: No Food Insecurity (03/12/2024) Received from [facility] Hunger Vital Sign Worried About Running Out of Food in the Last Year: Never true Ran Out of Food in the Last Year: Never true Transportation Needs: No Transportation Needs (03/12/2024) Received from [facility] PRAPARE - Transportation Lack of Transportation (Medical): No Lack of Transportation (Non-Medical): No Physical Activity: Inactive (03/12/2024) Received from [facility] Exercise Vital Sign Days of Exercise per Week: 0 days Minutes of Exercise per Session: 0 min Stress: Not on file Social Connections: Socially Integrated (01/26/2024) Received from [facility], [facility] Social Connections Frequency of Communication with Friends and Family: 0 Interpersonal Safety: Not At Risk (02/27/2024) Received from [facility] Humiliation, Afraid, Rape, and Kick questionnaire Fear of Current or Ex-Partner: No Emotionally Abused: No Physically Abused: No Sexually Abused: No Housing Stability: Low Risk (03/12/2024) Received from [facility] Housing Stability What is your living situation [...] limits and noncontributory. Procedures Flexible laryngoscopy (CPT 58196) Pre-procedure diagnosis: dysphonia Post-procedure diagnosis: same as [...] follow-up appointments as necessary. 03/19/2024 OV with Raafl Rankin M.D. IMPRESSION 1. Dysphagia 2. Paralysis [...] hesitate to contact me. Elaina Cervantes MD Entry Level Installation Technician Laryngology [facility] Department of Otolaryngology - Head and Neck Surgery [facility] [address] [place] [address] Appointment line: [phone] [email or web address] documented in this encounter Plan of Treatment Not on file documented as of this encounter Procedures Procedure Name Priority Date/Time Associated Diagnosis Comments PA LARYNGOSCOPY FLEX FIBEROPTIC, DIAGNOSTIC Routine 07/16/2024 3:47 [...] to vocal cord, sequela Recurrent aspiration pneumonia Pneumonitis due to inhalation of food or vomitus documented in this encounter Care Teams Bench Worker Hollow Handle Relationship Specialty Start Date End Date Sandy Matta MD [address] [place] [address] PCP - General Family Medicine 09/18/23 Tami Seaman OD [address] [place] [address] Optometry 09/18/23 Tami Seaman OD [address] [place], [place] 214485 Assigned Surgical Provider 10/14/23 Guy Yost MD [address] [place] [address] Otolaryngology 01/22/24 documented as of this encounter
--- OUTSIDE RECORDS SUMMARY | 2024-08-09 02:43 | XMS_ITS | Referral Summary ---
Author Organization [facility] Address [address] [place] [address] Care Team Providers Care Spanish Literature Professor Name Role Phone Elsewhere, Pcp Primary Care Provider Unavailabl e Source Comments Patient records contain information from all sites at [facility]. For routine questions regarding patient records, call [phone] during business hours, M-F 8:00 AM - 5:00 PM Central Time. Record requests for emergency care only can be directed to [phone] at any time.[facility] Encounters Date Type Department Care Team Description 08/06/2024 Clinical Communication Department of Otorhinolaryngology in [place], [place] [address] [place] [address] Rafal Rankin M.D. 08/06/2024 Orders Only Department of Otorhinolaryngology in [place], [place] [address] [place] [address] Rafal Rankin M.D. 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 07/23/2024 1:12 PM CDT Anesthesia Event [facility] OR [facility] [address] [place] [phone] Tayo Bradford D.O. Higgins, Timon J, M.D. 07/23/2024 10:00 AM CDT - 07/23/2024 11:18 AM CDT Hospital Encounter Department of Radiology, [facility], in [address] [phone] Rafal Rankin M.D. Sialorrhea Discharge Disposition: Home or Self Care 07/23/2024 1:46 PM CDT - 07/23/2024 2:44 PM CDT [facility] [address] [place] [phone] Rafal Rankin M.D. INJECTION BOTOX TO SUBMANDIBULAR GLANDS 50 units total, 25 units into each gland, ULTRASOUND GUIDANCE. 07/23/2024 11:19 AM CDT - 07/23/2024 2:16 PM CDT Hospital Encounter [facility] MAIN OR [address] [place] [phone] Rafal Rankin M.D. Discharge Disposition: Home or Self Care 07/18/2024 1:20 AM CDT Ancillary Procedure Department of Otorhinolaryngology 07/18/2024 1:00 PM CDT Office Visit Department of Otorhinolaryngology in [place], [place] [address] [place] [phone] Rafal Rankin M.D. 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 06/25/2024 9:00 AM CDT Telemedicine Department of Otorhinolaryngology in [place], [place] [address] [place] [phone] Rafal Rankin M.D. 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 Scheduling 06/18/2024 Orders Only Division of Endocrinology in [place], [place] [address] [place] [phone] Cristiane Palacio APRN, C.N.P., D.N.P. Dysphagia (Primary Dx) 06/18/2024 Orders Only Division of Endocrinology in [place], [place] [address] [place] [phone] Ankit Medina, R.NEdith Dietary Counseling And Surveillance For Enteral Nutrition (Primary Dx) 06/18/2024 Orders Only Department of Otorhinolaryngology in [place], [place] [address] [place] [phone] Luz Muir R.N. Sialorrhea (Primary Dx) 06/18/2024 Clinical Communication Department of Otorhinolaryngology in [place], [place] [address] [place] [phone] Rafal Rankin M.D. 06/18/2024 1:00 PM CDT Telemedicine Division of Endocrinology in [address] [phone] Stan Hernandez M.D. McKay, Elisa C, APRN, C.N.PEdith, D.N.P. Dysphagia; Stenosis Laryngeal; Pneumonitis Due To Inhalation Of Food And Vomit (HCC) 06/18/2024 10:00 AM CDT Clinical Support Division of Endocrinology in [place], [place] [address] [place] [phone] Stan Hernandez M.D. Neldner, Indra K, R.N. Dysphagia; Stenosis Laryngeal; Pneumonitis Due To Inhalation Of Food And Vomit (HCC) 06/18/2024 9:00 AM CDT Clinical Support Department of Nutrition and Diabetes Education in [place], [place] [address] [place] [phone] Stan Hernandez M.D. Victoria Muir M.S., RDN, LD Dietary Counseling And Surveillance For Enteral Nutrition (Primary Dx); Dysphagia; Stenosis Laryngeal; Pneumonitis Due To Inhalation Of Food And Vomit (HCC); Gastrojejunostomy Percutaneous Status Post 06/17/2024 Orders Only Department of Otorhinolaryngology in [place], [place] [address] [place] [phone] Rafal Rankin M.D. 05/20/2024 Orders Only Department of Ophthalmology in [address] [phone] Kandace Shankar M.D. Diplopia (Primary Dx) 05/20/2024 8:00 AM CDT Comprehensive Visit Department of Ophthalmology in [place], [place] [address] [place] [phone] Kandace Shankar M.D. 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 Scheduling from Last 3 Months Allergies Active Allergy [...] by g-tube route at bedtime. 3 Active prochlorperazin e (COMPAZINE) 25 mg suppository Insert 25 mg [...] a day. 120 packet 3 4 01/02/20 Active Additional Information Patient taking differently:40 mg,(No route reported), 2 times daily,Dissolve in water, administer via G-tube twice daily., Informant: Spouse/Significant Other, Reported on 05/15/2024 UNABLE TO FIND 1 each daily. durable medical equipment (DME). Caterna feed bag Ref# [id number]. Change bag every 24 hours. 4 Active UNABLE TO FIND 1 each as needed (5 times daily for flushes as needed.). durable medical equipment (DME) 12ml enteral syringe NeoMed with ENFIT CONNECTOR. 4 Active mag/aluminum/so d bicarb/alginc (GAVISCON ORAL) 20 mL by g-tube route 3 (three) times a day. Gaviscon Double Action. Active escitalopram (Lexapro) 20 mg tablet Take 20 mg by mouth. 4 Active famotidine (Pepcid) 40 mg/5 mL (8 mg/mL) suspension Administer 2.5 mL (20 mg total) via gastric tube 2 (two) times a day. 450 mL 3 4 Active escitalopram (LEXAPRO) 5 mg/5 mL solution Administer 10 mg via gastric tube every morning. 4 07/18/20 24 Discontinued dexlansoprazole (Dexilant) [address] capsule Take 1 capsule (30 mg total) by mouth 2 (two) times a day. Patient has a J- tube. Provide instructions how to admin via Jtube. 180 capsule 1 4 07/18/20 24 Discontinued amoxicillin-pot clavulanate (Augmentin) 875-125 mg per tablet Take 1 tablet by mouth 2 (two) times a day for 5 days. 10 tablet 4 07/29/20 24 famotidine (Pepcid) 40 mg/5 mL (8 mg/mL) suspension Administer 2.5 mL (20 mg total) via gastric tube 2 (two) times a day. 50 mL 4 07/30/20 24 Discontinued(Reo rder) Active Problems Problem Noted Date Diagnosed Date [...] drink = 0.6 oz pur e alcohol) [facility] Utilities Answer Date Recorded In the past 12 months has e [employer], gas, oil, or water [employer] threatened to shut off services in your [...] your living situation today? I have a [facility] place to live 03/12/2024 Sex and [...] CDT Comprehensive Visit Department of Neurology in [place], [place] [address] [place] [phone] Cristiane Palacio APRN, C.N.P., D.N.P. [address] [place], [place] [phone] Kriss Wharton M.S., CCC-BOTTOM WHEELER [address] [place] [phone] 08/15/2024 9:00 AM CDT Appointment Department of Radiology, [facility], in [place], [place] [address] [place] [phone] Cristiane Palacio APRN, C.N.P., D.N.P. [address] [place] [phone] Kriss Wharton M.S., CCC-BOTTOM WHEELER [address] [place] [phone] 08/15/2024 9:45 AM CDT Clinical Support Department of Neurology in [address] [phone] Cristiane Palacio, GRUPO C.N.P., D.N.P. [address] [place] [phone] Kriss Wharton M.S., CCC-BOTTOM WHEELER [address] [place] [phone] 08/15/2024 1:00 PM CDT Office Visit Department of Otorhinolaryngology in [address] [phone] Rafal Rankin M.D. [address] [place] [phone] 08/15/2024 2:30 PM CDT Ancillary Procedure Department of Ophthalmology in [address] [phone] Kandace Shankar M.D. [address] [place] [phone] 08/15/2024 3:00 PM CDT Comprehensive Visit Department of Ophthalmology in [address] [phone] Peña Carver M.D. [address] [place] [phone] 08/15/2024 4:15 PM CDT Office Visit Department of Ophthalmology in [address] [phone] Kandace Shankar M.D. [address] [place] [phone] 08/20/2024 3:00 PM CDT Appointment Division of Gastroenterology in [place], [place] [address] [place] [phone] Cristiane Palacio APRN, C.N.P., D.N.P. [address] [place] [phone] 08/22/2024 4:20 PM CDT Telemedicine Division of Gastroenterology in [place], [place] [address] [place] [phone] Swapnil Jaramillo M.D. [address] [place] [phone] 10/22/2024 8:30 AM BOARD MACHINE SET UP OPERATOR Clinical Communication Virtual Review in [place], [place] 200 [place] [phone] 10/25/2024 10:30 AM BOARD MACHINE SET UP OPERATOR Comprehensive Visit Department of Neurology in [place], [place] [address] [place] [phone] Oziel Odonnell M.D. [address] [place] [phone] Procedures Procedure Name Priority Date/Time Associated Diagnosis Comments US GUIDANCE INTRAOPERATIVE RAD - Routine (most inpatients and all outpatients) 07/23/2024 1:42 PM CDT Sialorrhea INJECTION BOTOX 07/23/2024 12:56 PM CDT Sialorrhea Case Notes STRIPPER SHOVEL OPERATOR at 11:23 OTORHINOLARYNGOLOGY IMAGE EXAM Routine 07/18/2024 [...] into each gland. Rafal MAHER US PROCEDURES * Otorhinolaryngology Image Exam-Otorhinolaryngology Image [...] RAD IMAGI NG PROCEDURES Performing Organization Address [facility] [[email or web address]] Co de Phone Number IIMS NA * Sensory Motor Exam (05/20/2024 8:44 AM CDT) Narrative OPHTHALMOLGY NON-IMAGING ORDERS - 05/20/2024 9:49 AM CDT I have reviewed the medical record and the sensorimotor exam documentation. The findings are consistent with my previously initiated care plan. I agree with the impression, plan, and follow up as entered by the outside parts salesman. Notes See note. Kandace Shankar M.D. OPHTH TOMOGRAPHY Performing Organization Address [facility] de Phone Number OPHTHALMOLGY NON-IMAGING ORDERS * [...] Ganglion cell layer was 29.00 microns. Notes [facility] See note. Kandace Shankar M.D. OPHTH TOMOGRAPHY Performing Organization Address [facility] [[email or web address]] Co de Phone Number OPHTHALMOLOGY IMAGING EXAM [...] RAD IMAGI NG PROCEDURES Performing Organization Address [facility] de Phone Number IIMS NA * Automated [...] OPHTH VISUAL FIEL D Performing Organization Address [facility] de Phone Number OPHTHALMOLOGY IMAGING EXAM * Clostridioides (Clostridium) Difficile Toxin, Molecular Detection, PCR, Feces (05/09/2024 8:50 AM CDT) C. difficile Toxin, F Negative Negative 05/09/2024 12:00 PM CDT DTL Stool (Stool) 05/09/2024 8:5 0 AM CDT 05/09/2024 9:40 AM CDT Stan Izaguirre M.D. LAB MICROBIOLOG Y - GENERAL ORDERABLES Performing Organization Address [facility] [[email or web address]] Co de Phone Number [facility] [address] [place] [address], [place] [facility] [address] [place] [address] * (ABNORMAL) Basic Metabolic Panel (02/28/2024 12:21 [...] Pham APRN C.N.P., M.S.N. LAB BLOOD ADD-ON [facility] [address] [place] [address], [facility] [address] [place] [address] from Last 3 Months or Most Recently Relevant to Health Maintenance Advance Directives For more information, please contact: [phone] Documents on File Type Date Recorded Patient Marble Installation Helper Expl anation Advance Directives 02/28/2024 2:04 PM Malika Guillen HCPOA/ADVOCATE/AGENT/R EPRESENTATIVE/SURROGAT E * Full Code (Latest Code Status on File) Date Activated Date Inactivated Comments 02/27/2024 12:46 AM 02/28/2024 4:31 PM Question Answer Comments Full Code: Discussed Healthcare Agents on File Name Relationship Healthcare Agent Bhupendraia ivonne Guillen Spouse Health Care Agent Malika Bryant Sister First Alternate Health Care Agent Care Teams Spanish Literature Professor Relationship Specialty Start Date End Date Elsewhere, Pcp PCP - General Internal Medicine 02/26/24
--- OUTSIDE RECORDS SUMMARY | 2024-08-09 02:43 | XMS_ITS ---
Author Organization [facility] Address [address] [place] [address] Care Team Providers Care Internal Audit Senior Manager Name Role Phone Unavailable Unavailable Unavailable Surgery Details Not on file Complications Check Surgery Details section. Procedure Estimated Blood Loss Check Surgery Details section. Procedure Findings Check Surgery Details section. Procedure Specimens Taken Check Surgery Details section.
--- OUTSIDE RECORDS SUMMARY | 2024-08-09 02:43 | XMS_ITS | Encounter Summary ---
Author Organization [facility] Address [address] [place] [address] Care Team Providers Care Spinneret Person Name Role Phone JurgenTami OD Unavailable [phone] Snady Matta MD Primary Care Provider [phone] Tami Seaman OD Unavailable [phone] Guy Yost MD Unavailable + [phone] Reason for Visit * Reason Onset Date Comments Previsit 07/16/2024 Encounter Details Date Type Department Care Team (Late st Contact Info) Description 07/16/2024 PRE VISIT [facility] [address] [phone] Elaina Cervantes MD [address] [place] [phone] Previsit Social History Tobacco Use Types [...] INFORMATION: Date: 07/16/24 Time: 3:30 PM Location: [facility] - [facility] REFERRAL INFORMATION: Referring provider: Sandy Matta MD Referring providers clinic: [facility] Reason for visit/diagnosis Per pt's spouse-trouble swallowing, airway restriction, in hospital weekly for pneumonia. [facility]SC verified. Records in [email or web address]. Higher priority referral being sent. Please send message when received. Please call [phone] Sandy Matta-PCP for more information RECORDS REQUESTED FROM: Clinic name Comments Records Status Imaging Status [facility] 01/26/24, 01/22/24- referral Sandy Matta MD 12/29/23, 12/12/23 - OV Ari Lopes MD More in CE Images: 02/14/24- XR Video Swallow 05/13/2024 XR chest [facility] 02/27/24- pending req PACS [facility] 02/14/24- Pending req 02/27/24- Received [facility] 10/09/23- XR Chest 10/02/23- XR Chest 10/01/23- XR Chest 09/29/23- XR Chest 09/19/23- CT Head 09/19/23- CT Spine 09/05/23- XR Chest 09/01/23- XR Chest 08/30/23- XR Chest 08/29/23- XR Chest [employer] [facility] [facility] 02/14/24- Pending req Disc received 02/22/24 [facility] 03/19/2024 OV with Rafal Rankin M.D. Imagin03/22/2024 [place] SWALLOW CE Req 06/24/24 PACS June 24, 2024 10:51 AM - request to [facility] to push images to [facility] June 26, 2024 10:40 AM - Images received and resolved in PACS -Paola documented in this encounter Plan of Treatment Not on file documented as of this encounter Visit Diagnoses Not on filedocumented in this encounter Care Teams Spinneret Person Relationship Specialty Start Date End Date Sandy Matta MD [address] [place] [address] PCP - General Family Medicine 09/18/23 Tami Seaman OD [address] [place] [address] Optometry 09/18/23 Tami Seaman, OD [address] [place] [address] Assigned Surgical Provider 10/14/23 Guy Yost MD [address] [place] [address] Otolaryngology 01/22/24 documented as of this encounter
--- OUTSIDE RECORDS SUMMARY | 2024-08-09 02:43 | XMS_ITS | Encounter Summary ---
Author Organization [facility] Address [address] [place] [address] Care Team Providers Care Manager Organizational Name Role Phone Elsewhere, Pcp Primary Care Provider Unavailabl e Encounter Details Date Type Department Care Team (Latest Contact Info) Description 08/06/2024 Clinical Communication Department of Otorhinolaryngology in [place], [place] [address] [place] [address] Rafal Rankin M.D. [address] [place] [address] Social History Tobacco Use Types Packs/Day Years Used Date Smoking Tobacco: Former Cigarettes Q uit: 1985 Smokeless Tobacco: Never Alcohol Use Standard Drinks/Week Comments Not Currently 0 (1 standard drink = 0.6 oz pur e alcohol) [facility] Utilities Answer Date Recorded In the [...] your living situation today? I have a [facility] place to live 03/12/2024 Sex and Gender Information Value Date Recorded Sex Assigned at Male 03/12/2024 1:38 PM CDT Gender Identity Male 03/12/2024 1:38 PM CDT Sexual Orientation Straight 03/12/2024 1: 38 PM CDT documented as of this encounter Miscellaneous Notes * Telephone Encounter - Rafal Rankin M.D. - 08/06/2024 5:51 PM CDT I spoke with Vinh's today. He is still struggling with aspiration and does not feel the Botoxhas been helping his symptoms. They are eager to get more established with a neurologist and get anidea of any other options he has for recovery at this point. I will place a consult. I will see them on August 15 * Telephone Encounter - Rafal Rankin M.D. - 08/06/2024 5:51 PM CDT ----- Message from Rafal Rankin M.D. sent at 07/26/2024 11:01 AM CDT ----- Call Monday documented in this encounter Plan of Treatment Upcoming Encounters Date Type Department Care Team (Latest Contact Info) Description 08/15/2024 8:00 AM CDT Comprehensive Visit Department of Neurology in [address] [phone] Cristiane Palacio APRN, C.N.P., D.N.P. [address] [place] [phone] Kriss Wharton M.S., CCC-PHLEBOTOMY SERVICES TECHNICIAN [address] [place] [phone] 08/15/2024 9:00 AM CDT Appointment Department of Radiology, [facility], in [place], [place] [address] [place] [phone] Cristiane Palacio APRN, C.N.P., D.N.P. [address] [place] [phone] Kriss Wharton M.S., CCC-PHLEBOTOMY SERVICES TECHNICIAN [address] [place] [phone] 08/15/2024 9:45 AM CDT Clinical Support Department of Neurology in [address] [phone] Cristiane Palacio, GRUPO, C.N.P., D.N.P. [address] [place] [phone] Kriss Wharton M.S., [facility]-PHLEBOTOMY SERVICES TECHNICIAN [address] [place] [phone] 08/15/2024 1:00 PM CDT Office Visit Department of Otorhinolaryngology in [place], [place] [address] [place] [phone] Rafal Rankin M.D. [address] [place] [phone] 08/15/2024 2:30 PM CDT Ancillary Procedure Department of Ophthalmology in [place], [place] [address] [place] [phone] Kandace Shankar M.D. [address] [place] [phone] 08/15/2024 3:00 PM CDT Comprehensive Visit Department of Ophthalmology in [place], [place] [address] [place] [phone] Peña Carver M.D. [address] [place] [phone] 08/15/2024 4:15 PM CDT Office Visit Department of Ophthalmology in [place], [place] [address] [place] [phone] Kandace Shankar M.D. [address] [place] [phone] 08/20/2024 3:00 PM CDT Appointment Division of Gastroenterology in [place], [place] [address] [place] [phone] Cristiane Palacio APRN C.N.P., D.N.P. [address] [place] [phone] 08/22/2024 4:20 PM CDT Telemedicine Division of Gastroenterology in [place], [place] [address] [place] [phone] Swapnil Jaramillo M.D. [address] [place] [phone] 10/22/2024 8:30 AM VACUUM PLASTIC FORMING MACHINE OPERATOR Clinical Communication Virtual Review in [place], [place] 200 [place] [phone] 10/25/2024 10:30 AM VACUUM PLASTIC FORMING MACHINE OPERATOR Comprehensive Visit Department of Neurology in [place], [place] [address] [place] [phone] Oziel Odonnell M.D. [address] [place] [phone] documented as of this encounter Visit Diagnoses Not on filedocumented in this encounter Care Teams Manager Organizational Relationship Specialty Start Date End Date Elsewhere, Pcp PCP - General Internal Medicine 02/26/24 documented as of this encounter
--- OUTSIDE RECORDS SUMMARY | 2024-08-09 02:43 | XMS_ITS | Encounter Summary ---
Author Organization [facility] Address [address] [place] [address] Care Team Providers Care Cattle Care Worker Name Role Phone Elsewhere, Pcp Primary Care Provider Unavailabl e Reason for Visit * Auth/Cert (Routine) Specialty Diagnoses / Procedures Referred By Contwaldemar t Referred To Contact Diagnoses Sialorrhea Sialorrhea [K11.7] Procedures [place] CHEMODENERV PAROTID SUBMAN INJECTION BOTOX TO SALIVARY GLANDS 100 units total (25 units into each gland), ULTRASOUND GUIDANCE; PROCEED INDICATED Rafal Rankin M.D. [address] [place] [phone] Referral ID Status Reason Start Date Expiration Date Visits Re quested Visits Authorized [id number] 1 1 Encounter Details Date Type Department Care Team (Late st Contact Info) Description 07/23/2024 1:12 PM CDT Anesthesia Event RST ROMB MAIN OR [address] [place] [phone] Tayo Bradford D.O. [address] [place] [phone] Alan Mchugh M.D. [address] [place] [phone] Anesthesia Record Procedure Summary Procedure Name Responsible [...] drink = 0.6 oz pur e alcohol) [facility] Utilities Answer Date Recorded In the past 12 months has e [employer], gas, oil, or water [employer] threatened to shut off services in your [...] Procedure Summary Date: 07/23/24 Room / Location: [place] [address] / [facility] in [place], [place] Anesthesia Start: 1312 Anesthesia Stop: 1343 [...] Sialorrhea [K11.7] Pre-op diagnosis: Sialorrhea [K11.7]. Location: [address] 01 [facility] / [facility] in [place], [place] Providers: Rafal Rankin M.D. Pertinent components [...] patient / legal guardian, or through an fiber optics engineer; patient evaluated and approved for anesthesia / sedation The use of blood products not discussed Approval to Proceed: approved for anesthesia documented in this encounter Plan of Treatment Upcoming Encounters Date Type Department Care Team (Latest Contact Info) Description 08/15/2024 8:00 AM CDT Comprehensive Visit Department of Neurology in [place], [place] [address] [place] [phone] Cristiane Palacio, GRUPO, C.N.P., D.N.P. [address] [place] [phone] Kriss Wharton M.S., CCC-FRONT END SOFTWARE DEVELOPER [address] [place] [phone] 08/15/2024 9:00 AM CDT Appointment Department of Radiology, [facility], in [place], [place] [address] [place] [phone] Cristiane Palacio APRN, C.N.P., D.N.P. [address] [place] [phone] Kriss Wharton M.S., CCC-FRONT END SOFTWARE DEVELOPER [address] [place] [phone] 08/15/2024 9:45 AM CDT Clinical Support Department of Neurology in [place], [place] [address] [place] [phone] Cristiane Palacio APRN, C.N.PEdith, D.N.P. [address] [place] [phone] Kriss Wharton M.S., CCC-FRONT END SOFTWARE DEVELOPER [address] [place] [phone] 08/15/2024 1:00 PM CDT Office Visit Department of Otorhinolaryngology in [place], [place] [address] [place] [phone] Rafal Rankin M.D. [address] [place] [phone] 08/15/2024 2:30 PM CDT Ancillary Procedure Department of Ophthalmology in [place], [place] [address] [place] [phone] Kandace Shankar M.D. [address] [place] [phone] 08/15/2024 3:00 PM CDT Comprehensive Visit Department of Ophthalmology in [place], [place] [address] [place] [phone] Peña Carver M.D. [address] [place] [phone] 08/15/2024 4:15 PM CDT Office Visit Department of Ophthalmology in [place], [place] [address] [place] [phone] Kandace Shankar M.D. [address] [place] [phone] 08/20/2024 3:00 PM CDT Appointment Division of Gastroenterology in [place], [place] [address] [place] [phone] Cristiane Palacio APRN, C.N.P., D.N.P. [address] [place] [phone] 08/22/2024 4:20 PM CDT Telemedicine Division of Gastroenterology in [place], [place] [address] [place] [phone] Swapnil Jaramillo M.D. [address] [place] [phone] 10/22/2024 8:30 AM BLIND HANGER Clinical Communication Virtual Review in [place], [place] 200 [place] [address] 10/25/2024 10:30 AM BLIND HANGER Comprehensive Visit Department of Neurology in [place], [place] [address] [place] [phone] Oziel Odonnell M.D. [address] [place] [phone] documented as of this encounter Visit Diagnoses [...] mL/hr documented in this encounter Care Teams Cattle Care Worker Relationship Specialty Start Date End Date Elsewhere, Pcp PCP - General Internal Medicine 02/26/24 documented as of this encounter
--- OUTSIDE RECORDS SUMMARY | 2024-08-09 02:43 | XMS_ITS | Encounter Summary ---
Author Organization [facility] Address [address] [place] [address] Care Team Providers Care Lace Burn Out Tender Name Role Phone Jurgen Tami OD Unavailable [phone] Sandy Matta MD Primary Care Provider [phone] Tami Seaman OD Unavailable [phone] Guy Yost MD Unavailable + [phone] Encounter Details Date Type Department Care Team [...] on filedocumented in this encounter Care Teams Lace Burn Out Tender Relationship Specialty Start Date End Date Sandy Matta MD Paolo Alcalaerson [place] [address] PCP - General Family Medicine 09/18/23 Tami Seaman OD [address] [place] [phone] Optometry 09/18/23 Tami Seaman OD [address] [place] [address] Assigned Surgical Provider 10/14/23 Guy Yost MD [address] [place] [address] Otolaryngology 01/22/24 documented as of this encounter
--- OUTSIDE RECORDS SUMMARY | 2024-08-09 02:43 | XMS_ITS | Clinical Summary ---
Author Organization [facility] Address [address] [facility] [place] [address] Phone Care Team Providers Care Intern Name Role Phone Sandy Matta Primary Care Provider [phone] Allergies No known active allergies Medications Medication [...] Comments Blood Pressure 134/82 10/09/2023 7:44 PM ETHICAL HACKER Pulse 80 10/10/2023 8:00 AM ETHICAL HACKER Temperature 36 ??C (96.8 ??F) 10/09/2023 7:44 PM ETHICAL HACKER Respiratory Rate 18 10/10/2023 8:00 AM ETHICAL HACKER Oxygen Saturation 98% 10/10/2023 8:00 AM ETHICAL HACKER Inhaled Oxygen Concentration - - Weight 87.8 kg (193 lb 9.6 oz) 10/04/2023 4:00 A M ETHICAL HACKER Height 180.3 cm (5' 11) 08/29/2023 2:44 [...] have received informed consent. Yes Care Teams Intern Relationship Specialty Start Date End Date Sandy Matta DO [address] [place] [address] PCP - General Family Medicine 08/30/23
--- OUTSIDE RECORDS SUMMARY | 2024-08-09 02:43 | XMS_ITS | Clinical Summary ---
Author Organization [facility] Address [address] [place] [address] Care Team Providers Care Radiographer Technologist Name Role Phone Elsewhere, Pcp Primary Care Provider Unavailabl e Source Comments Patient records contain information from all sites at [facility]. For routine questions regarding patient records, call [phone] during business hours, M-F 8:00 AM - 5:00 PM Central Time. Record requests for emergency care only can be directed to [phone] at any time.[facility] Allergies Active Allergy Reactions Criticality Noted Date [...] 1 each daily. durable medical equipment (DME). [employer] feed bag Ref# [id number]. Change bag every 24 hours. 4 Active [...] 08/06/2024 Clinical Communication Department of Otorhinolaryngology in [place], [place] [address] [place] [address] Rafal Rankin M.D. 08/06/2024 Orders Only Department of Otorhinolaryngology in [place], [place] [address] [place] [address] Rafal Rankin M.D. 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 07/23/2024 1:46 PM CDT - 07/23/2024 2:44 PM CDT Surgery RST ROMB MAIN OR [address] [place] [phone] Rafal Rankin M.D. INJECTION BOTOX TO SUBMANDIBULAR GLANDS 50 units total, 25 units into each gland, ULTRASOUND GUIDANCE. 07/23/2024 1:12 PM CDT Anesthesia Event RST ROMB MAIN OR [address] [place] [phone] Tayo Bradford D.O. Higgins, Timon J, M.D. 07/23/2024 11:19 AM CDT - 07/23/2024 2:16 PM CDT [place] [address] [place] [phone] Rafal Rankin M.D. Discharge Disposition: Home or Self Care 07/23/2024 10:00 AM CDT - 07/23/2024 11:18 AM CDT Hospital Encounter Department of Radiology, [facility] in [address] [phone] Rafal Rankin M.D. Sialorrhea Discharge Disposition: Home or Self Care 07/18/2024 1:00 PM CDT Office Visit Department of Otorhinolaryngology in [address] [phone] Rafal Rankin M.D. 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 06/25/2024 9:00 AM CDT Telemedicine Department of Otorhinolaryngology in [place], [place] [address] [place] [phone] Rafal Rankin M.D. Sialorrhea (Primary Dx); Dysphagia; Traumatic Subarachnoid Hemorrhage Without Loss Of Consciousness Sequela (HCC); Pneumonitis Due To Inhalation Of Food And Vomit (HCC) 06/18/2024 1:00 PM CDT Telemedicine Division of Endocrinology in [place], [place] [address] [place] [address] Stan Hernandez M.D. McKay, Elisa C, APRN, C.N.P., D.N.P. Dysphagia; Stenosis Laryngeal; Pneumonitis Due To Inhalation Of Food And Vomit (HCC) 06/18/2024 10:00 AM CDT Clinical Support Division of Endocrinology in [place], [place] [address] [place] [phone] Stan Hernandez M.D. Neldner, Indra K, R.N. Dysphagia; Stenosis Laryngeal; Pneumonitis Due To Inhalation Of Food And Vomit (HCC) 06/18/2024 9:00 AM CDT Clinical Support Department of Nutrition and Diabetes Education in [address] [phone] Stan Hernandez M.D. Johnson, Danelle A, M.S., RDN, LD Dietary Counseling And Surveillance For Enteral Nutrition (Primary Dx); Dysphagia; Stenosis Laryngeal; Pneumonitis Due To Inhalation Of Food And Vomit (HCC); Gastrojejunostomy Percutaneous Status Post 06/18/2024 Documentation Division of Endocrinology in [place], [place] [address] [place] [phone] Imelda Escamilla RTomasa Scheduling 06/18/2024 Orders Only Division of Endocrinology in [place], [place] [address] [place] [phone] Cristiane Palacio, GRUPO, C.N.P., D.N.P. Dysphagia (Primary Dx) 06/18/2024 Orders Only Division of Endocrinology in [place], [place] [address] [place] [phone] Ankit Medina RTomasa Dietary Counseling And Surveillance For Enteral Nutrition (Primary Dx) 06/18/2024 Orders Only Department of Otorhinolaryngology in [place], [place] [address] [place] [phone] Luz Muir R.N. Sialorrhea (Primary Dx) 06/18/2024 Clinical Communication Department of Otorhinolaryngology in [place], [place] [address] [place] [phone] Rafal Rankin M.D. 06/17/2024 Orders Only Department of Otorhinolaryngology in [place], [place] [address] [place] [phone] Rafal Rankin M.D. 05/20/2024 8:00 AM CDT Comprehensive Visit Department of Ophthalmology in [place], [place] [address] [place] [phone] Kandace Sahnkar M.D. Esotropia (Primary Dx); Traumatic Subarachnoid Hemorrhage Without Loss Of Consciousness Sequela (HCC); Diplopia 05/20/2024 Orders Only Department of Ophthalmology in [place], [place] [address] [place] [phone] Kandace Shankar M.D. Diplopia (Primary Dx) 05/17/2024 5:20 PM CDT Ancillary Procedure Department of Ophthalmology 05/17/2024 4:30 PM CDT Ancillary Procedure Department of Ophthalmology in [place], [place] [address] [place] [phone] Kandace Shankar M.D. Traumatic Subarachnoid Hemorrhage Without Loss Of Consciousness Sequela (HCC) 05/17/2024 3:00 PM CDT Ancillary Procedure Department of Ophthalmology in [address] [phone] Kandace Shankar M.D. Traumatic Subarachnoid Hemorrhage Without Loss Of Consciousness Sequela (HCC) 05/17/2024 2:55 PM CDT Ancillary Procedure Department of Ophthalmology 05/15/2024 10:30 AM CDT Clinical Communication Virtual Review in [place], [place] 200 [place] [address] Blood Pressure 05/09/2024 Documentation Division of Endocrinology in [address] [phone] Lesley Reis R.N. Scheduling from Last 3 Months Social History Tobacco Use Types Packs/Day Years Used Date Smoking Tobacco: Former Cigarettes Q uit: 1985 Smokeless Tobacco: Never Tobacco Cessation:Counseling Given: Not Answered Alcohol Use Standard Drinks/Week Comments Not Currently 0 (1 standard drink = 0.6 oz pur e alcohol) [facility] Utilities Answer Date Recorded In the past 12 months has e [employer], gas, oil, or water [employer] threatened to shut off services in your [...] CDT Comprehensive Visit Department of Neurology in [place], [place] [address] [place] [phone] Cristiane Palacio APRN, C.N.P., D.N.P. [address] [place], [place] [phone] Kriss Wharton M.S., CCC-BAGGAGE AGENT [address] [place] [phone] 08/15/2024 9:00 AM CDT Appointment Department of Radiology, [facility], in [place], [place] [address] [place] [phone] Cristiane Palacio APRN, C.N.P., D.N.P. [address] [place] [phone] Kriss Wharton M.S., CCC-BAGGAGE AGENT [address] [place] [phone] 08/15/2024 9:45 AM CDT Clinical Support Department of Neurology in [address] [phone] Cristiane Palacio, GRUPO C.N.P., D.N.P. [address] [place] [phone] Kriss Wharton M.S., CCC-BAGGAGE AGENT [address] [place] [phone] 08/15/2024 1:00 PM CDT Office Visit Department of Otorhinolaryngology in [address] [phone] Rafal Rankin M.D. [address] [place] [phone] 08/15/2024 2:30 PM CDT Ancillary Procedure Department of Ophthalmology in [address] [phone] Kandace Shankar M.D. [address] [place] [phone] 08/15/2024 3:00 PM CDT Comprehensive Visit Department of Ophthalmology in [address] [address] Peña Carver M.D. [address] [place] [phone] 08/15/2024 4:15 PM CDT Office Visit Department of Ophthalmology in [address] [phone] Kandace Shankar M.D. [address] [place] [phone] 08/20/2024 3:00 PM CDT Appointment Division of Gastroenterology in [place], [place] [address] [place] [phone] Cristiane Palacio, GRUPO, C.N.P., D.N.P. [address] [place] [phone] 08/22/2024 4:20 PM CDT Telemedicine Division of Gastroenterology in [place], [place] [address] [place] [phone] Swapnil Jaramillo M.D. [address] [place] [phone] 10/22/2024 8:30 AM REINFORCING ROD LAYER Clinical Communication Virtual Review in [place], [place] 200 [place] [phone] 10/25/2024 10:30 AM REINFORCING ROD LAYER Comprehensive Visit Department of Neurology in [place], [place] [address] [place] [phone] Oziel Odonnell M.D. [address] [place] [phone] Health Maintenance Due Date Last Done Comments CT Colonography 1955 Cologuard 1955 FIT 1955 Hepatitis C Screening 1955 Zoster Vaccines (3 of 3) 10/19/20182 018, 08/24/2018, 06/15/2018, Additional history exists Depression Screening (Annual PHQ-2) 11/13/2023 COVID-19 Vaccine (2023- 5 season) 2024 10/11/2023, 10/24/2022, 02/28/2022, Additional history exists Fasting Glucose for Diabetes Screening 02/27/2027 02/28/2024, 02/27/2024, 02/26/2024, Additional history exists Colonoscopy 06/14/2031 06/14/2021 Colorectal Cancer Screening 06/14/2031 DTaP,Tdap,and Td Vaccines (4 - Td or Tdap) 08/14/2033 08/14/2023, 07/22/2022, 05/04/2012, Additional history exists Pneumococcal vaccine (65+ years) Completed 06/07/2023, 06/07/2023, 01/12/2022 Abdominal Aortic Aneurysm (A AA) Screen Completed 09/19/2023 Fall Risk Screen (Annual) Completed 07/23/2024 Influenza Vaccine Completed 08/05/2024, , 07/22/2022, Additional history exists Procedures Procedure Name Priority Date/Time Associated Diagnosis Comments US GUIDANCE INTRAOPERATIVE RAD - Routine (most inpatients and all outpatients) 07/23/2024 1:42 PM CDT Sialorrhea INJECTION BOTOX 07/23/2024 12:56 PM CDT Sialorrhea Case Notes ORAL AND MAXILLOFACIAL SURGERY at 11:23 OTORHINOLARYNGOLOGY IMAGE EXAM Routine 07/18/2024 [...] and follow up as entered by the product/device technologist. Notes See note. Kandace Shankar M.D. OPHTH TOMOGRAPHY Performing Organization Address [facility] de Phone Number OPHTHALMOLGY NON-IMAGING ORDERS * [...] layer was 29.00 microns. Notes [facility] See note. Kandace Shankar M.D. OPHTH TOMOGRAPHY Performing Organization Address [facility] de Phone Number OPHTHALMOLOGY IMAGING EXAM * [...] RAD IMAGI NG PROCEDURES Performing Organization Address [facility] de Phone Number IIMS NA * Automated [...] OPHTH VISUAL FIEL D Performing Organization Address City/[facility]/ZIP Co de Phone Number OPHTHALMOLOGY IMAGING EXAM * Clostridioides (Clostridium) Difficile Toxin, Molecular Detection, PCR, Feces (05/09/2024 8:50 AM CDT) C. difficile Toxin, F Negative Negative 05/09/2024 12:00 PM CDT DTL Stool (Stool) 05/09/2024 8:5 0 AM CDT 05/09/2024 9:40 AM CDT Stan Izaguirre M.D. LAB MICROBIOLOG Y - GENERAL ORDERABLES Performing Organization Address City/[facility] Co de Phone Number [facility] [place] [address], [facility] [place] [address] * (ABNORMAL) Basic Metabolic Panel (02/28/2024 12:21 [...] Pham APRN C.N.P., M.S.N. LAB BLOOD ADD-ON [facility] [place] [address] [place] [address], [facility] [place] [address] [place] [address] from Last 3 Months or Most Recently Relevant to Health Maintenance Advance Directives For more information, please contact: [phone] Documents on File Type Date Recorded Patient Maintenance Man Expl anation Advance Directives 02/28/2024 2:04 PM Malika Guillen HCPOA/ADVOCATE/AGENT/R EPRESENTATIVE/SURROGAT E * Full Code (Latest Code Status on File) Date Activated Date Inactivated Comments 02/27/2024 12:46 AM 02/28/2024 4:31 PM Question Answer Comments Full Code: Discussed Healthcare Agents on File Name Relationship Healthcare Agent Latasha ivonne Dony Guillen Spouse Health Care Agent Malika Bryant Sister First Alternate Health Care Agent Care Teams Radiographer Technologist Relationship Specialty Start Date End Date Elsewhere, Pcp PCP - General Internal Medicine 02/26/24
--- OUTSIDE RECORDS SUMMARY | 2024-08-09 02:43 | XMS_ITS | Encounter Summary ---
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 200 [place] [address] [facility] Referral ID Status Reason Start Date Expiration Date V isits Requested Visits Authorized [id number] Authorized 08/06/2024 02/05/2026 1 1 Encounter Details Date Type Department Care Team (Latest Contact Info) Description 08/06/2024 Orders Only Department of Otorhinolaryngology in [place], [place] [address] [place] [phone] Rafal Rankin M.D. 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 I have a [facility] place to live 03/12/2024 Sex [...] CDT Comprehensive Visit Department of Neurology in [place], [place] [address] [place] [phone] Cristiane Palacio APRN, C.N.P., D.N.P. [address] [place] [phone] Kriss Wharton M.S., [facility]-DR[employer] SHAFT AND STEERING POST REPAIRER [address] [place] [phone] 08/15/2024 9:00 AM CDT Appointment Department of Radiology, [facility], in [place], [place] [address] [place] [phone] Cristiane Palacio APRN, C.N.P., D.N.P. [address] [place] [phone] Kriss Wharton M.S., [facility]-[employer] POST REPAIRER [address] [place] [phone] 08/15/2024 9:45 AM CDT Clinical Support Department of Neurology in [place], [place] [address] [place] [phone] Cristiane Palacio APRN, C.N.P., D.N.P. [address] [place] [phone] Kriss Wharton M.S., [facility]-[employer] STEER[employer] POST REPAIRER [address] [place] [phone] 08/15/2024 1:00 PM CDT Office Visit Department of Otorhinolaryngology in [place], [place] [address] [place] [phone] Rafal Rankin M.D. [address] [place] [phone] 08/15/2024 2:30 PM CDT Ancillary Procedure Department of Ophthalmology in [place], [place] [address] [place] [phone] Kandace Shankar M.D. [address] [place] [phone] 08/15/2024 3:00 PM CDT Comprehensive Visit Department of Ophthalmology in [place], [place] [address] [place] [phone] Peña Carver M.D. [address] [place] [phone] 08/15/2024 4:15 PM CDT Office Visit Department of Ophthalmology in [place], [place] [address] [place] [phone] Kandace Shankar M.D. [address] [place] [phone] 08/20/2024 3:00 PM CDT Appointment Division of Gastroenterology in [place], [place] [address] [place] [address] [phone] Cristiane Palacio, GRUPO, C.N.P., D.N.P. [address] [place] [phone] 08/22/2024 4:20 PM CDT Telemedicine Division of Gastroenterology in [place], [place] [address] [place] [phone] Swapnil Jaramillo M.D. [address] [place] [phone] 10/22/2024 8:30 AM GOVERNOR ASSEMBLER HYDRAULIC Clinical Communication Virtual Review in [place], [place] 200 [place] [phone] 10/25/2024 10:30 AM GOVERNOR ASSEMBLER HYDRAULIC Comprehensive Visit Department of Neurology in [place], [place] [address] [place] [phone] Oziel Odonnell M.D. 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
--- OUTSIDE RECORDS SUMMARY | 2024-08-09 02:43 | XMS_ITS | Encounter Summary ---
Author Organization [facility] Address [address] [place] [address] Care Team Providers Care Compressed Gases Tester Name Role Phone Elsewhere, Pcp Primary Care Provider Unavailabl e Encounter Details Date Type Department Care Team (Latest Contact Info) Description 07/24/2024 Clinical Communication Division of Endocrinology in [place], [place] [address] [place] [address] Cristiane Palacio, GRUPO, C.N.P., D.N.P. [address] [place] [phone] Social History Tobacco Use Types Packs/Day Years Used Date Smoking Tobacco: Former Cigarettes Q uit: 1985 Smokeless Tobacco: Never Alcohol Use Standard Drinks/Week Comments Not Currently 0 (1 standard drink = 0.6 oz pur e alcohol) [facility] Utilities Answer Date Recorded In the past 12 months has e [employer], gas, oil, or water company threatened to [...] your living situation today? I have a [facility] place to live 03/12/2024 Sex [...] CDT Comprehensive Visit Department of Neurology in [address] [phone] Cristiane Palacio APRN, C.N.P., D.N.P. [address] [place] [phone] Kriss Wharton, M.S., CCC-PROJECT TECHNICIAN [address] [place] [phone] 08/15/2024 9:00 AM CDT Appointment Department of Radiology, [facility], in [address] [phone] Cristiane Palacio APRN, C.N.P., D.N.P. [address] [place] [phone] Kriss Wharton, M.S., CCC-PROJECT TECHNICIAN [address] [place] [address] [phone] 08/15/2024 9:45 AM CDT Clinical Support Department of Neurology in [address] [phone] Cristiane Palacio APRN, C.N.P., D.N.P. [address] [place] [phone] Kriss Wharton, M.S., CCC-PROJECT TECHNICIAN [address] [place] [address] [phone] 08/15/2024 1:00 PM CDT Office Visit Department of Otorhinolaryngology in [address] [place] [address] Rafal Rankin M.D. [address] [place] [address] [phone] 08/15/2024 2:30 PM CDT Ancillary Procedure Department of Ophthalmology in [place], [place] [address] [place] [address] [phone] Kandace Shankar M.D. [address] [place] [phone] 08/15/2024 3:00 PM CDT Comprehensive Visit Department of Ophthalmology in [place], [place] [address] [place] [phone] Peña Carver M.D. [address] [place] [address] [phone] 08/15/2024 4:15 PM CDT Office Visit Department of Ophthalmology in [place], [place] [address] [place] [phone] Kandace Shankra M.D. [address] [place] [phone] 08/20/2024 3:00 PM CDT Appointment Division of Gastroenterology in [place], [place] [address] [place] [phone] Cristiane Palacio, GRUPO, C.N.P., D.N.P. [address] [place] [address] [phone] 08/22/2024 4:20 PM CDT Telemedicine Division of Gastroenterology in [place], [place] [address] [place] [phone] Swapnil Jaramillo M.D. [address] [place] [address] [phone] 10/22/2024 8:30 AM LAST SORTER Clinical Communication Virtual Review in [place], [place] 200 [place] [phone] 10/25/2024 10:30 AM LAST SORTER Comprehensive Visit Department of Neurology in [place], [place] [address] [place] [phone] Oziel Odonnell M.D. [address] [place] [address] [phone] documented as of this encounter Visit Diagnoses Not on filedocumented in this encounter Care Teams Compressed Gases Tester Relationship Specialty Start Date End Date Elsewhere, Pcp PCP - General Internal Medicine 02/26/24 documented as of this encounter
--- OUTSIDE RECORDS SUMMARY | 2024-08-09 02:43 | XMS_ITS | Clinical Summary ---
Author Organization [facility] Address [address], [place] [address] Care Team Providers Care Planning Aide Name Role Phone Found, No Pcp MD Primary Care Provider Unavailab le Source Comments You are receiving this document as you are listed as the primary care provider,follow-up provider, or the patient has been referred to you for consultation.This is in compliance with the Medicare and[facility], [facility] EHR Incentive Program,which states Providers who transition their patient to another setting of careor provider of care or refers their patient to another provider of care shouldprovide summary care record for each transition of care or referral. 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 10/25/2017 Other specific arthropathies , not elsewhere classified, multiple sites 05/25/2011 Overview (07/05/2017): Other specified arthropathy, multiple sites Immunizations Name Administration Dates Next Due Flu Vac (3+ yrs) 08/19/2013, 3,08/27/2010, 009,09/05/2008,09/06/2007,09/13/2006,07/2005,09/09/2003 Flu Vac Preserv Free (3+yrs) 08/27/2008 Influenza ([place] Only) (Flul aval Quad 0.5, 3+ yrs) 08/22/2016 Influenza J5H6-53 2009 Influenza IIV4 (Quadrivalent ) 0.5mL (41777) 08/24/2018,09/08/2017,09/11/2015, 014 Td 11/13/1996 Tdap 05/04/2012 Zoster [...] Comments Blood Pressure 128/77 10/28/2020 1:49 PM BACKER UP Pulse 69 10/28/2020 1:49 PM BACKER UP Temperature 36.4 ??C (97.5 ??F) 10/28/2020 1 :49 PM BACKER UP Respiratory Rate 18 11/11/2015 3:07 PM BACKER UP Oxygen Saturation - - Inhaled Oxygen Concentration - - Weight 85.6 kg (188 lb 12.8 oz) 019 4:32 PM BACKER UP Height 182.9 cm (6') 03/26/2009 2:31 PM CDT C: 182.9cm Body Mass Index - - Plan of Treatment Health Maintenance Due Date Last Done Comments Colon Cancer Screening Plan Due 1955 Hep C Screening (Preventive Services) 1955 PSA Screening Discussion 1955 Adult Preventive Visit 1973 Cholesterol 1990 Pneumococcal 65+ Yrs (1 - PCV) 2020 DTaP/Tdap/Td (2 - Tdap) 05/04/2022 05/04/20 12, 07/12/2007, 11/13/1996 COVID-19 Vaccine (2 - season) 2024 12/29/2020 Influenza (#1) 2024 08/04/2020, 01/2019, 08/24/2018, Additional history exists RSV (1 - 1-dose 75+ series) 2030 Zoster/Shingles Completed 08/24/2018, 01/2018, 05/04/2012 HepA Aged [...] age to complete this topic Care Teams Planning Aide Relationship Specialty Start Date End Date Found, No Pcp, [address] [place] [address] PCP - General 10/18/18
[2024-08-09 02:44] LABS: Chloride* 94 mmol/L (96-114); Potassium* 4.1 mmol/L (3.6-5.1); Sodium* 133 mmol/L (135-149)
[2024-08-09] MEDS: AZITHROMYCIN 500 MG in 0.9 % SODIUM CHLORIDE 250 ml 250 ML 255 MG IVPB (02:44)
--- OUTSIDE RECORDS SUMMARY | 2024-08-09 02:44 | XMS_ITS | Encounter Summary ---
Author Organization [facility] Address [address] [place] [address] Care Team Providers Care Kindergarten Teacher Assistant Name Role Phone Elsewhere, Pcp Primary Care Provider Unavailabl e Reason for Visit * Auth/Cert (Routine) Specialty Diagnoses / Procedures Referred By Contwaldemar t Referred To Contact Diagnoses Sialorrhea Sialorrhea [K11.7] Procedures MS CHEMODENERV PAROTID SUBMAN INJECTION BOTOX TO SALIVARY GLANDS 100 units total (25 units into each gland), ULTRASOUND GUIDANCE; PROCEED INDICATED Rafal Rankin M.D. [address] [place] [address] Referral ID Status Reason Start Date Expiration Date Visits Re quested Visits Authorized [id number] 1 1 Encounter Details Date Type Department Care Team (Latest Contact Info) Description 07/23/2024 11:19 AM CDT - 07/23/2024 2:16 PM CDT Hospital Encounter [facility] [address] [place] [address] Rafal Rankin M.D. [address] [place] [phone] Discharge Disposition: Home or Self Care Social History Tobacco Use Types Packs/Day Years Used Date Smoking Tobacco: Former Cigarettes Q uit: 1985 Smokeless Tobacco: Never Alcohol Use Standard Drinks/Week Comments Not Currently 0 (1 standard drink = 0.6 oz pur e alcohol) [facility] Utilities Answer Date Recorded In the past [...] equipment (DME). Anival Kelley feed bag Ref# [id number]. Change bag every 24 hours. 03/27/2024 UNABLE [...] CDT Comprehensive Visit Department of Neurology in [place], [place] 200 [place] [address] Cristiane Palacio APRN, C.N.P., D.N.P. [address] [place] [address] Kriss Wharton M.S., [facility] [address] [place] [phone] 08/15/2024 9:00 AM CDT Appointment Department of Radiology, [facility], in [place], [place] [address] [place] [phone] Cristiane Palacio APRN, C.N.P., D.N.P. [address] [place] [phone] Kriss Wharton M.S., [facility] [address] [place] [phone] 08/15/2024 9:45 AM CDT Clinical Support Department of Neurology in [address] [phone] Cristiane Palacio APRN, C.N.P., D.N.P. [address] [place] [phone] Kriss Wharton M.S., [facility] [address] [place] [phone] 08/15/2024 1:00 PM CDT Office Visit Department of Otorhinolaryngology in [address] [phone] Rafal Rankin M.D. [address] [place] [phone] 08/15/2024 2:30 PM CDT Ancillary Procedure Department of Ophthalmology in [place], [place] [address] [place] [phone] Kandace Shankar M.D. [address] [place] [phone] 08/15/2024 3:00 PM CDT Comprehensive Visit Department of Ophthalmology in [place], [place] [address] [place] [phone] Peña Carver M.D. [address] [place] [phone] 08/15/2024 4:15 PM CDT Office Visit Department of Ophthalmology in [place], [place] [address] [place] [phone] Kandace Shankar M.D. [address] [place] [phone] 08/20/2024 3:00 PM CDT Appointment Division of Gastroenterology in [place], [place] [address] [place] [phone] Cristiane Palacio, GRUPO, C.N.P., D.N.P. [address] [place] [phone] 08/22/2024 4:20 PM CDT Telemedicine Division of Gastroenterology in [place], [place] [address] [place] [phone] Swapnil Jaramillo M.D. [address] [place] [phone] 10/22/2024 8:30 AM BINDERY MACHINE OPERATOR Clinical Communication Virtual Review in [place], [place] 200 [place] [address] 10/25/2024 10:30 AM BINDERY MACHINE OPERATOR Comprehensive Visit Department of Neurology in [place], [place] [address] [place] [phone] Oziel Odonnell M.D. [address] [place] [phone] documented as of this encounter Procedures Procedure Name Priority Date/Time Associated Diagnosis Comments INJECTION BOTOX 07/23/2024 12:56 PM CDT Sialorrhea Case Notes CCU NURSE at 11:23 documented in this encounter Visit [...] injection documented in this encounter Care Teams Kindergarten Teacher Assistant Relationship Specialty Start Date End Date Elsewhere, Pcp PCP - General Internal Medicine 02/26/24 documented as of this encounter
--- OUTSIDE RECORDS SUMMARY | 2024-08-09 02:44 | XMS_ITS | Encounter Summary ---
Author Organization [facility] Address [address] [place] [address] Care Team Providers Care Line Erector Apprentice Name Role Phone Elsewhere, Pcp Primary Care Provider Unavailabl e Reason for Visit * Outpatient (Routine) - Closed Specialty Diagnoses / Procedures Referred By Karine t Referred To Contact Otorhinolaryngology Rafal Rankin M.D. [address] [place] [address] [facility] Referral ID Status Reason Start Date Expiration Date Visits Re quested Visits Authorized [id number] Closed 06/17/2024 12/17/2025 1 1 Encounter Details Date Type Department Care Team (Latest Contact Info) Description 06/25/2024 9:00 AM CDT Telemedicine Department of Otorhinolaryngology in [place], [place] [address] [place] [phone] Rafal Rankin M.D. [address] [place] [phone] Sialorrhea (Primary Dx); Dysphagia; Traumatic Subarachnoid Hemorrhage [...] Rankin M.D. - 06/25/2024 9:00 AM CDT [facility] VIRTUAL VISIT The patient was present for a consult via real-time video technology by Dr. Rankin on 06/25/24 in [facility] to the patient in the patient's home [...] CDT Comprehensive Visit Department of Neurology in [address] [phone] Cristiane Palacio APRN, C.N.P., D.N.P. [address] [place] [phone] Kriss Wharton M.S., CCC-JOB PLACEMENT SPECIALIST [address] [place] [phone] 08/15/2024 9:00 AM CDT Appointment Department of Radiology, [facility], in [address] [phone] Cristiane Palacio APRN, C.N.P., D.N.P. [address] [place] [phone] Kriss Wharton M.S., CCC-JOB PLACEMENT SPECIALIST [address] [place] [phone] 08/15/2024 9:45 AM CDT Clinical Support Department of Neurology in [address] [phone] Cristiane Palacio, GRUPO C.N.P., D.N.P. [address] [place] [phone] Kriss Wharton M.S., [facility]-JOB PLACEMENT SPECIALIST [address] [place] [address] [phone] 08/15/2024 1:00 PM CDT Office Visit Department of Otorhinolaryngology in [place], [place] [address] [place] [phone] Rafal Rankin M.D. [address] [place] [phone] 08/15/2024 2:30 PM CDT Ancillary Procedure Department of Ophthalmology in [place], [place] [address] [place] [phone] Kandace Shankar M.D. [address] [place] [phone] 08/15/2024 3:00 PM CDT Comprehensive Visit Department of Ophthalmology in [place], [place] [address] [place] [phone] Peña Carver M.D. [address] [place] [phone] 08/15/2024 4:15 PM CDT Office Visit Department of Ophthalmology in [place], [place] [address] [place] [phone] Kandace Shankar M.D. [address] [place] [phone] 08/20/2024 3:00 PM CDT Appointment Division of Gastroenterology in [place], [place] [address] [place] [phone] Cristiane Palacio APRN, C.N.P., D.N.P. [address] [place] [address] [phone] 08/22/2024 4:20 PM CDT Telemedicine Division of Gastroenterology in [place], [place] [address] [place] [address] [phone] Swapnil Jaramillo M.D. [address] [place] [phone] 10/22/2024 8:30 AM COMMUNITY ARTS OFFICER Clinical Communication Virtual Review in [place], [place] 200 [place] [phone] 10/25/2024 10:30 AM COMMUNITY ARTS OFFICER Comprehensive Visit Department of Neurology in [place], [place] [address] [place] [address] [phone] Oziel Odonnell M.D. 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
--- OUTSIDE RECORDS SUMMARY | 2024-08-09 02:44 | XMS_ITS | Encounter Summary ---
Author Organization [facility] Address [address] [place] [address] Care Team Providers Care Communications Systems Engineer Name Role Phone Elsewhere, Pcp Primary Care Provider Unavailabl e Reason for Visit * Auth/Cert (Routine) Specialty Diagnoses / Procedures Referred By Karine t Referred To Contact Diagnoses Sialorrhea Sialorrhea [K11.7] Procedures KS CHEMODENERV PAROTID SUBMAN INJECTION BOTOX TO SALIVARY GLANDS 100 units total (25 units into each gland), ULTRASOUND GUIDANCE; PROCEED INDICATED Rafal Rankin M.D. [address] [place] [address] Referral ID Status Reason Start Date Expiration Date Visits Re quested Visits Authorized [id number] 1 1 Encounter Details Date Type Department Care Team (Late st Contact Info) Description 07/23/2024 1:46 PM CDT - 07/23/2024 2:44 PM CDT Surgery RST ROMB MAIN OR [address] [place] [address] Rafal Rankin M.D. [address] [place] [phone] INJECTION BOTOX TO SUBMANDIBULAR GLANDS 50 units total, 25 units into each gland, ULTRASOUND GUIDANCE. Social History Tobacco Use Types Packs/Day Years Used Date Smoking Tobacco: Former Cigarettes Q uit: 1985 Smokeless Tobacco: Never Alcohol Use Standard Drinks/Week Comments Not Currently 0 (1 standard drink = 0.6 oz pur e alcohol) [facility] Utilities Answer Date Recorded In the past 12 months has e [employer], gas, oil, or water [employer] threatened to shut off services in your [...] equipment (DME). [employer] feed bag Ref# [id number]. Change bag every 24 hours. 03/27/2024 UNABLE [...] CDT Comprehensive Visit Department of Neurology in [place], [place] [address] [place] [address] Cristiane Palacio, GRUPO, C.N.P., D.N.P. [address] [place] [address] Kriss Wharton M.S., [facility] [address] [place] [phone] 08/15/2024 9:00 AM CDT Appointment Department of Radiology, [facility], in [place], [place] [address] [place] [phone] Cristiane Palacio, GRUPO, C.N.P., D.N.P. [address] [place] [phone] Kriss Wharton M.S., [facility] [address] [place] [phone] 08/15/2024 9:45 AM CDT Clinical Support Department of Neurology in [place], [place] [address] [place] [phone] Cristiane Palacio APRN, C.N.P., D.N.P. [address] [place] [phone] Kriss Wharton M.S., [facility] [address] [place] [phone] 08/15/2024 1:00 PM CDT Office Visit Department of Otorhinolaryngology in [place], [place] [address] [place] [phone] Rafal Rankin M.D. [address] [place] [phone] 08/15/2024 2:30 PM CDT Ancillary Procedure Department of Ophthalmology in [place], [place] [address] [place] [phone] Kandace Shankar M.D. [address] [place] [phone] 08/15/2024 3:00 PM CDT Comprehensive Visit Department of Ophthalmology in [place], [place] [address] [place] [phone] Peña Carver M.D. [address] [place] [phone] 08/15/2024 4:15 PM CDT Office Visit Department of Ophthalmology in [place], [place] [address] [place] [phone] Kandace Shankar M.D. [address] [place] [phone] 08/20/2024 3:00 PM CDT Appointment Division of Gastroenterology in [place], [place] [address] [place] [phone] Cristiane Palacio, GRUPO, C.N.P., D.N.P. [address] [place] [phone] 08/22/2024 4:20 PM CDT Telemedicine Division of Gastroenterology in [address] [phone] Swapnil Jaramillo M.D. [address] [place] [phone] 10/22/2024 8:30 AM SENIOR SOUS CHEF Clinical Communication Virtual Review in [place], [place] 200 [place] [phone] 10/25/2024 10:30 AM SENIOR SOUS CHEF Comprehensive Visit Department of Neurology in [place], [place] [address] [place] [phone] Oziel Odonnell M.D. [address] [place] [phone] documented as of this encounter Procedures Procedure Name Priority Date/Time Associated Diagnosis Comments INJECTION BOTOX 07/23/2024 12:56 PM CDT Sialorrhea Case Notes OIL WELL CABLE TOOL OPERATOR at 11:23 documented in this encounter Visit [...] injection documented in this encounter Care Teams Communications Systems Engineer Relationship Specialty Start Date End Date Elsewhere, Pcp PCP - General Internal Medicine 02/26/24 documented as of this encounter
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
--- OUTSIDE RECORDS SUMMARY | 2024-08-09 02:44 | XMS_ITS | Encounter Summary ---
Author Organization [facility] Address [address] [place] [address] Care Team Providers Care Aquaculture Farmer Name Role Phone Elsewhere, Pcp Primary Care Provider Unavailabl e Reason for Referral * Outpatient (Routine) - Authorized Specialty Diagnoses / Procedures Referred By Karine t Referred To Contact Diagnoses Dietary Counseling And Surveillance For Enteral Nutrition Procedures EGD ? Percutaneous Endoscopic Gastrostomy/Jejunostomy Cristiane Palacio APRN, C.N.P., D.N.P. [address] [place] [phone] [facility] Referral ID Status Reason Start Date Expiration Date V isits Requested Visits Authorized [id number] Authorized 06/18/2024 06/18/2025 1 1 * Outpatient (Routine) - Authorized Specialty Diagnoses / Procedures Referred By Contwaldemar t Referred To Contact Endocrinology Diagnoses Dietary Counseling And Surveillance For Enteral Nutrition Cristiane Palacio APRN, C.N.P., D.N.P. [address] [place] [phone] [facility] Referral ID Status Reason Start Date Expiration Date V isits Requested Visits Authorized [id number] Authorized 06/18/2024 12/18/2025 1 1 Scheduling Instructions TRIAGE ONLY Encounter Details Date Type Department Care Team (Late st Contact Info) Description 06/18/2024 Orders Only Division of Endocrinology in [place], [place] [address] [place] [address] Ankit Medina REdithNEdith Dietary Counseling And Surveillance For Enteral Nutrition (Primary Dx) Social History Tobacco Use Types Packs/Day Years Used Date Smoking Tobacco: Former Cigarettes Q uit: 1985 Smokeless Tobacco: Never Alcohol Use Standard Drinks/Week Comments Not Currently 0 (1 standard drink = 0.6 oz pur e alcohol) [facility] Utilities Answer Date Recorded In the past 12 months has [facility] [employer], gas, oil, or water [employer] threatened to shut off services in your [...] your living situation today? I have a [facility] place to live 03/12/2024 Sex and [...] CDT Comprehensive Visit Department of Neurology in [place], [place] [address] [place] [phone] Cristiane Palacio APRN, C.N.P., D.N.P. [address] [place], [place] [phone] Kriss Wharton M.S., [facility] [address] [place] [phone] 08/15/2024 9:00 AM CDT Appointment Department of Radiology, [facility], in [place], [place] [address] [place] [phone] Cristiane Palacio APRN, C.N.P., D.N.P. [address] [place] [phone] Kriss Wharton M.S., [facility] [address] [place] [phone] 08/15/2024 9:45 AM CDT Clinical Support Department of Neurology in [place], [place] [address] [place] [phone] Cristiane Palacio, GRUPO C.N.P., D.N.P. [address] [place] [phone] Kriss Wharton M.S., [facility] [address] [place] [phone] 08/15/2024 1:00 PM CDT Office Visit Department of Otorhinolaryngology in [address] [phone] Rafal Rankin M.D. [address] [place] [phone] 08/15/2024 2:30 PM CDT Ancillary Procedure Department of Ophthalmology in [address] [phone] Kandace Shankar M.D. [address] [place] [phone] 08/15/2024 3:00 PM CDT Comprehensive Visit Department of Ophthalmology in [address] [phone] Peña Carver M.D. [address] [place] [phone] 08/15/2024 4:15 PM CDT Office Visit Department of Ophthalmology in [address] [phone] Kandace hSankar M.D. [address] [place] [phone] 08/20/2024 3:00 PM CDT Appointment Division of Gastroenterology in [place], [place] [address] [place] [phone] Cristiane Palacio APRN, C.N.P., D.N.P. [address] [place] [phone] 08/22/2024 4:20 PM CDT Telemedicine Division of Gastroenterology in [place], [place] [address] [place] [phone] Swapnil Jaramillo M.D. [address] [place] [phone] 10/22/2024 8:30 AM TELEMETRY REGISTERED NURSE Clinical Communication Virtual Review in [place], [place] [address] [place] [phone] 10/25/2024 10:30 AM TELEMETRY REGISTERED NURSE Comprehensive Visit Department of Neurology in [place], [place] [address] [place] [phone] Oziel Odonnell M.D. [address] [place] [phone] Scheduled Orders Name Type Priority Associated Diagnoses [...] Primary documented in this encounter Care Teams Aquaculture Farmer Relationship Specialty Start Date End Date Elsewhere, Pcp PCP - General Internal Medicine 02/26/24 documented as of this encounter
--- OUTSIDE RECORDS SUMMARY | 2024-08-09 02:44 | XMS_ITS | Encounter Summary ---
Author Organization [facility] Address [address] [place] [address] Care Team Providers Care Rover Tender Name Role Phone Elsewhere, Pcp Primary Care Provider Unavailabl e Reason for Visit * Reason Comments Feeding Tube Encounter Details Date Type Department Care Team (Latest Contact Info) Description 06/18/2024 10:00 AM CDT Clinical Support Division of Endocrinology in [place], [place] [address] [place] [address] Stan Hernandez M.D. Ankit Medina, R.N. Dysphagia; Stenosis Laryngeal; Pneumonitis Due To Inhalation Of Food And Vomit (HCC) Social History Tobacco Use Types Packs/Day Years Used Date Smoking Tobacco: Former Cigarettes Q uit: 1985 Smokeless Tobacco: Never Alcohol Use Standard Drinks/Week Comments Not Currently 0 (1 standard drink = 0.6 oz pur e alcohol) [facility] Utilities Answer Date Recorded In the past 12 months has e [employer], gas, oil, or water [email or web address] threatened to shut off services in your [...] replaced: 05/15/2024 Patient reported replaced locally at [facility] Skin disk level: 3.5 cm moved to 4 cm Internal anchor device: Balloon, not checked Site condition: Tube site is concave in nature, just above an abdominal fold. Scant mucous drainagewith very small ridge of granulation tissue 2459-6515.The granulation tissue from 8869-0185 was scabbed over. circumferential erythema under skin [...] Self replacement: NA Special order tube: GI/IR linen supply load builder notified? NA PLAN Is there a procedure [...] handout discussed and demonstrated. Granulation tissue from 3865-5737 treated with 1 stick of silver nitrate [...] with the TGJ tube, because they enjoy [employer] boarding. We discussed that his tube site [...] future tube care and replacements done at [facility]. *Per [facility] provider Cristiane Palacio CNP [...] CDT Comprehensive Visit Department of Neurology in [address] [phone] Cristiane Palacio APRN, C.N.P., D.N.P. [address] [place] [phone] Kriss Wharton M.S., CCC-SENSITIZED PAPER TESTER [address] [place] [phone] 08/15/2024 9:00 AM CDT Appointment Department of Radiology, [facility], in [address] [phone] Cristiane Palacio APRN, C.N.P., D.N.P. [address] [place] [phone] Kriss Wharton M.S., CCC-SENSITIZED PAPER TESTER [address] [place] [phone] 08/15/2024 9:45 AM CDT Clinical Support Department of Neurology in [address] [phone] Cristiane Palacio APRN, C.N.P., D.N.P. [address] [place] [phone] Kriss Wharton M.S., CCC-SENSITIZED PAPER TESTER [address] [place] [phone] 08/15/2024 1:00 PM CDT Office Visit Department of Otorhinolaryngology in [place], [place] [address] [place] [phone] Rafal Rankin M.D. [address] [place] [phone] 08/15/2024 2:30 PM CDT Ancillary Procedure Department of Ophthalmology in [place], [place] [address] [place] [phone] Kandace Shankar M.D. [address] [place] [phone] 08/15/2024 3:00 PM CDT Comprehensive Visit Department of Ophthalmology in [place], [place] [address] [place] [phone] Peña Carver M.D. [address] [place] [phone] 08/15/2024 4:15 PM CDT Office Visit Department of Ophthalmology in [place], [place] [address] [place] [phone] Kandace Shankar M.D. [address] [place] [phone] 08/20/2024 3:00 PM CDT Appointment Division of Gastroenterology in [place], [place] [address] [place] [phone] Cristiane Palacio, GRUPO, C.N.P., D.N.P. [address] [place] [phone] 08/22/2024 4:20 PM CDT Telemedicine Division of Gastroenterology in [place], [place] [address] [place] [phone] Swapnil Jaramillo M.D. [address] [place] [phone] 10/22/2024 8:30 AM ACCESS DIRECTOR Clinical Communication Virtual Review in [place], [place] 200 [place] [phone] 10/25/2024 10:30 AM ACCESS DIRECTOR Comprehensive Visit Department of Neurology in [place], [place] [address] [place] [phone] Oziel Odonnell M.D. [address] [place] [phone] documented as of this encounter Visit Diagnoses Diagnosis Dysphagia Stenosis Laryngeal Pneumonitis Due To Inhalation Of Food And Vomit (HCC) documented in this encounter Care Teams Rover Tender Relationship Specialty Start Date End Date Elsewhere, Pcp PCP - General Internal Medicine 02/26/24 documented as of this encounter
--- OUTSIDE RECORDS SUMMARY | 2024-08-09 02:44 | XMS_ITS | Encounter Summary ---
Author Organization [facility] Address [address] [place] [phone] Care Team Providers Care Lollypop Machine Operator Name Role Phone Elsewhere, Pcp Primary Care Provider Unavailabl e Reason for Referral * Outpatient (Routine) - Authorized Specialty Diagnoses / Procedures Referred By Contwaldemar t Referred To Contact Ophthalmology Diagnoses Diplopia Kandace Shankar M.D. [address] [place] [phone] [facility] Referral ID Status Reason Start Date Expiration Date V isits Requested Visits Authorized [id number] Authorized 05/20/2024 11/19/2025 1 1 Scheduling Instructions Coordinate with return visit in Neuro-Ophthalmology with Dr. Shankar Encounter Details Date Type Department Care Team (Late st Contact Info) Description 05/20/2024 Orders Only Department of Ophthalmology in [place], [place] [address] [place] [phone] Kandace Shankar M.D. [address] [place] [phone] Diplopia (Primary Dx) Social History Tobacco Use Types Packs/Day Years Used Date Smoking Tobacco: Former Cigarettes Q uit: 1985 Smokeless Tobacco: Never Alcohol Use Standard Drinks/Week Comments Not Currently 0 (1 standard drink = 0.6 oz pur e alcohol) [facility] Utilities Answer Date Recorded In the past [...] CDT Comprehensive Visit Department of Neurology in [address] [phone] Cristiane Palacio APRN, C.N.P., D.N.P. [address] [place] [phone] Kriss Wharton M.S., [facility]-PURCHASE ANALYST [address] [place] [phone] 08/15/2024 9:00 AM CDT Appointment Department of Radiology, [facility], in [address] [phone] Cristiane Palacio APRN, C.N.P., D.N.P. [address] [place] [phone] Kriss Wharton M.Chris, [facility]-PURCHASE ANALYST [address] [place] [phone] 08/15/2024 9:45 AM CDT Clinical Support Department of Neurology in [address] [phone] Cristiane Palacio APRN, C.N.P., D.N.P. [address] [place] [phone] Kriss Wharton M.Chris, [facility]-PURCHASE ANALYST [address] [place] [phone] 08/15/2024 1:00 PM CDT Office Visit Department of Otorhinolaryngology in [place], [place] [address] [place] [phone] Rafal Rankin M.D. [address] [place] [phone] 08/15/2024 2:30 PM CDT Ancillary Procedure Department of Ophthalmology in [place], [place] [address] [place] [phone] Kandace Shankar M.D. [address] [place] [phone] 08/15/2024 3:00 PM CDT Comprehensive Visit Department of Ophthalmology in [place], [place] [address] [place] [phone] Peña Carver M.D. [address] [place] [phone] 08/15/2024 4:15 PM CDT Office Visit Department of Ophthalmology in [place], [place] [address] [place] [phone] Kandace Shankar M.D. [address] [place] [phone] 08/20/2024 3:00 PM CDT Appointment Division of Gastroenterology in [place], [place] [address] [place] [phone] Cristiane Palacio, GRUPO, C.N.P., D.N.P. [address] [place] [phone] 08/22/2024 4:20 PM CDT Telemedicine Division of Gastroenterology in [place], [place] [address] [place] [phone] Swapnil Jaramillo M.D. [address] [place] [phone] 10/22/2024 8:30 AM MEDICAL CARE ADMINISTRATOR Clinical Communication Virtual Review in [place], [place] 200 [place] [phone] 10/25/2024 10:30 AM MEDICAL CARE ADMINISTRATOR Comprehensive Visit Department of Neurology in [place], [place] [address] [place] [phone] Oziel Odonnell M.D. [address] [place] [phone] Scheduled Referrals Name Type Priority Associated Diagnoses Order Schedule Ophthalmology - Adult strabismus consult (clinic) Outpatient Referral Routine Diplopia Expected: 08/20/2024, Expires: 08/20/2025 documented as of this encounter Visit Diagnoses Diagnosis Diplopia- Primary documented in this encounter Care Teams Lollypop Machine Operator Relationship Specialty Start Date End Date Elsewhere, Pcp PCP - General Internal Medicine 02/26/24 documented as of this encounter
--- OUTSIDE RECORDS SUMMARY | 2024-08-09 02:44 | XMS_ITS | Encounter Summary ---
Author Organization [facility] Address [address] [place] [address] Care Team Providers Care Compensation Manager Name Role Phone Elsewhere, Pcp Primary Care Provider Unavailabl e Reason for Visit * Outpatient (Routine) - Closed Specialty Diagnoses / Procedures Referred By Karine t Referred To Contact Otorhinolaryngology Rafal Rankin M.D. [address] [place] [address] [facility] Referral ID Status Reason Start Date Expiration Date Visits Re quested Visits Authorized [id number] Closed 07/17/2024 01/16/2026 1 1 Encounter Details Date Type Department Care Team (Latest Contact Info) Description 07/18/2024 1:00 PM CDT Office Visit Department of Otorhinolaryngology in [place], [place] [address] [place] [phone] Rafal Rankin M.D. 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 I have a [facility] place to live 03/12/2024 Sex and Gender Information Value Date Recorded Sex Assigned at Male 03/12/2024 1:38 PM CDT Gender Identity Male 03/12/2024 1:38 PM CDT Sexual Orientation Straight 03/12/2024 1: 38 PM CDT documented as of this encounter Progress Notes * Rafal Rankin M.D. - 07/18/2024 1:00 PM CDT [facility] CHIEF COMPLAINT/PURPOSE OF VISIT: Follow [...] returns after seeing Dr. Cervantes yesterday at [facility]. Mood was a little down today as [...] CDT Comprehensive Visit Department of Neurology in [address] [phone] Cristiane Palacio APRN, C.N.P., D.N.P. [address] [place] [phone] Kriss Wharton M.S., CCC-PRODUCTION SANITIZER [address] [place] [phone] 08/15/2024 9:00 AM CDT Appointment Department of Radiology, [facility], in [address] [phone] Cristiane Palacio APRN, C.N.P., D.N.P. [address] [place] [phone] Kriss Wharton M.S., CCC-PRODUCTION SANITIZER [address] [place] [phone] 08/15/2024 9:45 AM CDT Clinical Support Department of Neurology in [address] [phone] Cristiane Palacio APRN, C.N.P., D.N.P. [address] [place] [phone] Kriss Wharton M.S., [facility]-PRODUCTION SANITIZER [address] [place] [phone] 08/15/2024 1:00 PM CDT Office Visit Department of Otorhinolaryngology in [place], [place] [address] [place] [phone] Rafal Rankin M.D. [address] [place] [phone] 08/15/2024 2:30 PM CDT Ancillary Procedure Department of Ophthalmology in [place], [place] [address] [place] [phone] Kandace Shankar M.D. [address] [place] [phone] 08/15/2024 3:00 PM CDT Comprehensive Visit Department of Ophthalmology in [place], [place] [address] [place] [phone] Peña Carver M.D. [address] [place] [phone] 08/15/2024 4:15 PM CDT Office Visit Department of Ophthalmology in [place], [place] [address] [place] [phone] Kandace Shankar M.D. [address] [place] [phone] 08/20/2024 3:00 PM CDT Appointment Division of Gastroenterology in [place], [place] [address] [place] [phone] Cristiane Palacio APRN, C.N.P., CarlyN.P. [address] [place] [phone] 08/22/2024 4:20 PM CDT Telemedicine Division of Gastroenterology in [place], [place] [address] [place] [phone] Swapnil Jaramillo M.D. [address] [place] [phone] 10/22/2024 8:30 AM DITCH TENDER Clinical Communication Virtual Review in [place], [place] 200 [place] [phone] 10/25/2024 10:30 AM DITCH TENDER Comprehensive Visit Department of Neurology in [place], [place] [address] [place] [phone] Oziel Odonnell M.D. 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
--- OUTSIDE RECORDS SUMMARY | 2024-08-09 02:44 | XMS_ITS | Encounter Summary ---
Author Organization [facility] Address [address] [place] [address] Care Team Providers Care Remote Operations Producer Name Role Phone Elsewhere, Pcp Primary Care Provider Unavailabl e Reason for Referral * Speech Pathology (Routine) - Authorized Specialty Diagnoses / Procedures Referred By Karine velasco Referred To Contact Diagnoses Dysphagia Procedures HISTOLOGY TECHNICIAN - Ongoing treatment Cristiane Palacio APRN, C.N.P., D.N.P. [address] [place] [phone] [facility] Referral ID Status Reason Start Date Expiration Date V isits Requested Visits Authorized [id number] Authorized 06/18/2024 06/18/2025 99 99 * Outpatient (Routine) - Authorized Specialty Diagnoses / Procedures Referred By Karine velasco Referred To Contact Diagnoses Dysphagia Procedures FL Swallow Function with Video and Speech or OT Cristiane Palacio APRN, C.N.P., D.N.P. [address] [place] [phone] [facility] Referral ID Status Reason Start Date Expiration Date V isits Requested Visits Authorized [id number] Authorized 06/18/2024 06/18/2025 1 1 * Speech Pathology (Routine) - Authorized Specialty Diagnoses / Procedures Referred By Contac t Referred To Contact Diagnoses Dysphagia Procedures HISTOLOGY TECHNICIAN Dysphagia evaluate and treat Cristiane Palacio APRN C.N.PEdith, D.N.P. [address] [place] [phone] [facility] Referral ID Status Reason Start Date Expiration Date V isits Requested Visits Authorized [id number] Authorized 06/18/2024 06/18/2025 99 99 Encounter Details Date Type Department Care Team (Late st Contact Info) Description 06/18/2024 Orders Only Division of Endocrinology in [place], [place] [address] [place] [phone] Cristiane Palacio APRN, C.N.P., D.N.P. [address] [place] [phone] Dysphagia (Primary Dx) Social History Tobacco Use Types Packs/Day Years Used Date Smoking Tobacco: Former Cigarettes Q uit: 1985 Smokeless Tobacco: Never Alcohol Use Standard Drinks/Week Comments Not Currently 0 (1 standard drink = 0.6 oz pur e alcohol) [facility] Utilities Answer Date Recorded In the past 12 months has e electric, gas, oil, or water [employer] threatened to shut off services in your [...] CDT Comprehensive Visit Department of Neurology in [place], [place] [address] [place] [address] Cristiane Palacio, GRUPO, C.N.P., D.N.P. 200 [place] [phone] Kriss Wharton M.S., [facility] [address] [place] [phone] 08/15/2024 9:00 AM CDT Appointment Department of Radiology, [facility], in [place], [place] [address] [place] [phone] Cristiane Palacio APRN, C.N.PEdith, D.N.P. [address] [place] [phone] Kriss Wharton M.S., [facility] [address] [place] [phone] 08/15/2024 9:45 AM CDT Clinical Support Department of Neurology in [place], [place] [address] [place] [phone] Cristiane Palacio APRN, C.N.P., D.N.P. [address] [place] [phone] Kriss Wharton M.S., [facility] [address] [place] [phone] 08/15/2024 1:00 PM CDT Office Visit Department of Otorhinolaryngology in [place], [place] [address] [place] [phone] Rafal Rankin M.D. [address] [place] [phone] 08/15/2024 2:30 PM CDT Ancillary Procedure Department of Ophthalmology in [place], [place] [address] [place] [phone] Kandace Shankar M.D. [address] [place] [phone] 08/15/2024 3:00 PM CDT Comprehensive Visit Department of Ophthalmology in [place], [place] [address] [place] [phone] Peña Carver M.D. [address] [place] [phone] 08/15/2024 4:15 PM CDT Office Visit Department of Ophthalmology in [place], [place] [address] [place] [phone] Kandace Shankar M.D. [address] [place] [phone] 08/20/2024 3:00 PM CDT Appointment Division of Gastroenterology in [place], [place] [address] [place] [phone] Cristiane Palacio, GRUPO, C.N.P., D.N.P. [address] [place] [phone] 08/22/2024 4:20 PM CDT Telemedicine Division of Gastroenterology in [place], [place] [address] [place] [phone] Swapnil Jaramillo M.D. [address] [place] [phone] 10/22/2024 8:30 AM LUBRICATION TECHNICIAN Clinical Communication Virtual Review in [place], [place] 200 [place] [phone] 10/25/2024 10:30 AM LUBRICATION TECHNICIAN Comprehensive Visit Department of Neurology in [place], [place] [address] [place] [phone] Oziel Odonnell M.D. [address] [place] [phone] Scheduled Orders Name Type Priority Associated Diagnoses Orde r Schedule FL Swallow Function with Video and Speech or OT Imaging RAD - Routine (most inpatients and all outpatients) Dysphagia Expected: 06/18/2024, Expires: 09/18/2025 documented as of this encounter Visit Diagnoses Diagnosis Dysphagia- Primary documented in this encounter Care Teams Remote Operations Producer Relationship Specialty Start Date End Date Elsewhere, Pcp PCP - General Internal Medicine 02/26/24 documented as of this encounter
--- OUTSIDE RECORDS SUMMARY | 2024-08-09 02:44 | XMS_ITS | Encounter Summary ---
Author Organization [facility] Address [address] [place] [address] Care Team Providers Care Immersion Metal Cleaner Name Role Phone Elsewhere, Pcp Primary Care Provider Unavailabl e Reason for Visit * Reason Comments Scheduling Encounter Details Date Type Department Care Team (Late st Contact Info) Description 06/18/2024 Documentation Division of Endocrinology in [place], [place] [address] [place] [address] Imelda Escamilla REdithN. Scheduling Social History Tobacco Use Types Packs/Day Years Used Date Smoking Tobacco: Former Cigarettes Q uit: 1985 Smokeless Tobacco: Never Alcohol Use Standard Drinks/Week Comments Not Currently 0 (1 standard drink = 0.6 oz pur e alcohol) [facility] Utilities Answer Date Recorded In the [...] a 30 minute slot, no anesthesia at --[facility], any complex doctor to do. Mona ent [...] CDT Comprehensive Visit Department of Neurology in [address] [phone] Cristiane Palacio APRN, C.N.P., D.N.P. [address] [place] [phone] Kriss Wharton M.Chris, CCC-FULL STACK PYTHON DEVELOPER [address] [place] [address] [phone] 08/15/2024 9:00 AM CDT Appointment Department of Radiology, [facility], in [address] [phone] Cristiane Palacio APRN, C.N.P., D.N.P. [address] [place] [phone] Kriss Wharton M.S., CCC-FULL STACK PYTHON DEVELOPER [address] [place] [address] [phone] 08/15/2024 9:45 AM CDT Clinical Support Department of Neurology in [address] [phone] Cristiane Palacio APRN, C.N.P., D.N.P. [address] [place] [address] [phone] Kriss Wharton M.S., CCC-FULL STACK PYTHON DEVELOPER [address] [place] [phone] 08/15/2024 1:00 PM CDT Office Visit Department of Otorhinolaryngology in [place], [place] [address] [place] [phone] Rafal Rankin M.D. [address] [place] [phone] 08/15/2024 2:30 PM CDT Ancillary Procedure Department of Ophthalmology in [place], [place] [address] [place] [phone] Kandace Shankar M.D. [address] [place] [phone] 08/15/2024 3:00 PM CDT Comprehensive Visit Department of Ophthalmology in [place], [place] [address] [place] [address] [phone] Peña Carver M.D. [address] [place] [phone] 08/15/2024 4:15 PM CDT Office Visit Department of Ophthalmology in [place], [place] [address] [place] [phone] Kandace Shankar M.D. [address] [place] [phone] 08/20/2024 3:00 PM CDT Appointment Division of Gastroenterology in [place], [place] [address] [place] [phone] Cristiane Palacio, NATUROPATHIC DOCTOR, C.N.P., D.N.P. [address] [place] [phone] 08/22/2024 4:20 PM CDT Telemedicine Division of Gastroenterology in [place], [place] [address] [place] [phone] Swapnil Jaramillo M.D. [address] [place] [phone] 10/22/2024 8:30 AM EVENT COORDINATOR Clinical Communication Virtual Review in [place], [place] 200 [place] [phone] 10/25/2024 10:30 AM EVENT COORDINATOR Comprehensive Visit Department of Neurology in [place], [place] [address] [place] [phone] Oziel Odonnell M.D. [address] [place] [address] [phone] documented as of this encounter Visit Diagnoses Not on filedocumented in this encounter Care Teams Immersion Metal Cleaner Relationship Specialty Start Date End Date Elsewhere, Pcp PCP - General Internal Medicine 02/26/24 documented as of this encounter
--- OUTSIDE RECORDS SUMMARY | 2024-08-09 02:44 | XMS_ITS | Encounter Summary ---
Author Organization [facility] Address [address] [place] [address] Care Team Providers Care Winding Inspector And Tester Name Role Phone Elsewhere, Pcp Primary [...] In the past 12 months has e [employer], gas, oil, or water [employer] threatened to shut off services in your [...] your living situation today? I have a [facility] place to live 03/12/2024 Sex and [...] CDT Comprehensive Visit Department of Neurology in [place], [place] 200 [place] [phone] Cristiane Palacio, GRUPO, C.N.P., D.N.P. [address] [place] [phone] Kriss Wharton M.S., [facility] BL[facility]ER [address] [place] [phone] 08/15/2024 9:00 AM CDT Appointment Department of Radiology, [facility], in [place], [place] [address] [place] [phone] Cristiane Palacio APRN, C.N.P., D.N.P. [address] [place] [phone] Kriss Wharton M.S., CCC-TOBACCO BLENDER [address] [place] [phone] 08/15/2024 9:45 AM CDT Clinical Support Department of Neurology in [address] [phone] Cristiane Palacio APRN, C.N.P., D.N.P. [address] [place] [phone] Kriss Wharton M.S., CCC-TOBACCO BLENDER [address] [place] [phone] 08/15/2024 1:00 PM CDT Office Visit Department of Otorhinolaryngology in [address] [phone] Rafal Rankin M.D. [address] [place] [phone] 08/15/2024 2:30 PM CDT Ancillary Procedure Department of Ophthalmology in [address] [phone] Kandace Shankar M.D. [address] [place] [phone] 08/15/2024 3:00 PM CDT Comprehensive Visit Department of Ophthalmology in [address] [phone] Peña Carver M.D. [address] [place] [phone] 08/15/2024 4:15 PM CDT Office Visit Department of Ophthalmology in [place], [place] [address] [place] [phone] Kandace Shankar M.D. [address] [place] [phone] 08/20/2024 3:00 PM CDT Appointment Division of Gastroenterology in [place], [place] [address] [place] [phone] Cristiane Palacio APRN, C.N.P., D.N.P. [address] [place] [phone] 08/22/2024 4:20 PM CDT Telemedicine Division of Gastroenterology in [place], [place] [address] [place] [phone] Swapnil Jaramillo M.D. [address] [place] [phone] 10/22/2024 8:30 AM CRUDE TESTER Clinical Communication Virtual Review in [place], [place] 200 [place] [phone] 10/25/2024 10:30 AM CRUDE TESTER Comprehensive Visit Department of Neurology in [place], [place] [address] [place] [phone] Oziel Odonnell M.D. [address] [place] [phone] documented as of this encounter Procedures Procedure [...] on filedocumented in this encounter Care Teams Winding Inspector And Tester Relationship Specialty Start Date End Date Elsewhere, Pcp PCP - General Internal Medicine 02/26/24 documented as of this encounter
--- OUTSIDE RECORDS SUMMARY | 2024-08-09 02:44 | XMS_ITS | Encounter Summary ---
Author Organization [facility] Address [address] [place] [address] Care Team Providers Care Head Waiter/Waitress Name Role Phone Elsewhere, Pcp Primary Care Provider Unavailabl e Encounter Details Date Type Department Care Team (Latest Contact Info) Description 06/18/2024 Clinical Communication Department of Otorhinolaryngology in [place], [place] [address] [place] [address] Rafal Rankin M.D. [address] [place] [phone] Social History Tobacco Use Types Packs/Day Years [...] your living situation today? I have a [facility] place to live 03/12/2024 Sex and Gender Information Value Date Recorded Sex Assigned at Male 03/12/2024 1:38 PM CDT Gender Identity Male 03/12/2024 1:38 PM CDT Sexual Orientation Straight 03/12/2024 1: 38 PM CDT documented as of this encounter Plan of Treatment Upcoming Encounters Date Type Department Care Team (Latest Contact Info) Description 08/15/2024 8:00 AM CDT Comprehensive Visit Department of Neurology in [place], [place] 200 [place] [address] Cristiane Palacio, GRUPO, C.N.P., D.N.P. [address] [place] [phone] Kriss Wharton M.S., [facility] [address] [place] [phone] 08/15/2024 9:00 AM CDT Appointment Department of Radiology, [facility], in [place], [place] [address] [place] [phone] Cristiane Palacio APRN, C.N.P., D.N.P. [address] [place] [phone] Kriss Wharton M.S., [facility] [address] [place] [phone] 08/15/2024 9:45 AM CDT Clinical Support Department of Neurology in [place], [place] [address] [place] [phone] Cristiane Palacio APRN, C.N.P., D.N.P. [address] [place] [phone] Kriss Wharton M.S., [facility] [address] [place] [phone] 08/15/2024 1:00 PM CDT Office Visit Department of Otorhinolaryngology in [place], [place] [address] [place] [phone] Rafal Rankin M.D. [address] [place] [phone] 08/15/2024 2:30 PM CDT Ancillary Procedure Department of Ophthalmology in [place], [place] [address] [place] [phone] Kandace Shankar M.D. [address] [place] [phone] 08/15/2024 3:00 PM CDT Comprehensive Visit Department of Ophthalmology in [place], [place] [address] [place] [phone] Peña Carver M.D. [address] [place] [phone] 08/15/2024 4:15 PM CDT Office Visit Department of Ophthalmology in [place], [place] [address] [place] [phone] Kandace Shankar M.D. [address] [place] [phone] 08/20/2024 3:00 PM CDT Appointment Division of Gastroenterology in [place], [place] [address] [place] [phone] Cristiane Palacio APRN, C.N.P., D.N.P. [address] [place] [phone] 08/22/2024 4:20 PM CDT Telemedicine Division of Gastroenterology in [place], [place] [address] [place] [phone] Swapnil Jaramillo M.D. [address] [place] [phone] 10/22/2024 8:30 AM CHILD CARE DEVELOPMENT SPECIALIST Clinical Communication Virtual Review in [place], [place] 200 [place] [phone] 10/25/2024 10:30 AM CHILD CARE DEVELOPMENT SPECIALIST Comprehensive Visit Department of Neurology in [place], [place] [address] [place] [phone] Oziel Odonnell M.D. [address] [place] [phone] documented as of this encounter Visit Diagnoses Not on filedocumented in this encounter Care Teams Head Waiter/Waitress Relationship Specialty Start Date End Date Elsewhere, Pcp PCP - General Internal Medicine 02/26/24 documented as of this encounter
--- OUTSIDE RECORDS SUMMARY | 2024-08-09 02:44 | XMS_ITS | Encounter Summary ---
Author Organization [facility] Address [address] [place] [address] Care Team Providers Care Shoer Name Role Phone Elsewhere, Pcp Primary Care Provider Unavailabl e Reason for Visit * Outpatient (Routine) - Closed Specialty Diagnoses / Procedures Referred By Contwaldemar t Referred To Contact Nutrition Diagnoses Dysphagia Stenosis Laryngeal Pneumonitis Due To Inhalation Of Food And Vomit (HCC) Stan Hernandez M.D. [facility] Referral ID Status Reason Start Date Expiration Date Visits Re quested Visits Authorized [id number] Closed 05/09/2024 11/08/2025 1 1 Encounter Details Date Type Department Care Team (Latest Contact Info) Description 06/18/2024 9:00 AM CDT Clinical Support Department of Nutrition and Diabetes Education in [place], [place] [address] [place] [phone] Stan Hernandez M.D. Johnson, Danelle A, M.S., RDN, LD [address] [place] [phone] Dietary Counseling And Surveillance For Enteral Nutrition (Primary Dx); Dysphagia; Stenosis Laryngeal; Pneumonitis Due To Inhalation Of Food And Vomit (HCC); Gastrojejunostomy Percutaneous Status Post Social History Tobacco Use Types Packs/Day Years Used Date Smoking Tobacco: Former Cigarettes Q uit: 1985 Smokeless Tobacco: Never Alcohol Use Standard Drinks/Week Comments Not Currently 0 (1 standard drink = 0.6 oz pur e alcohol) [facility] Utilities Answer Date Recorded In [...] living situation today? I have a [facility] place to live 03/12/2024 Sex and [...] Relevant Social and Family History Resides in [place]. Medical Tests and Procedures/Biochemical Data VFSS (03/22/24): [...] Normal Muscle Mass: Normal Tube Information 18 Yi TGJ tube last replaced at [facility] 05/15/24 Food/Nutrient Related History Oral Intake: [...] BMI: 22.2 Estimation of Nutritional Needs Calories: 5078-5879 kcals/day (30-35 kcal/kg) Protein: 88-110 grams/day (1.2-1.5 [...] that will provide needed supplies for home: [employer] in [place] - they are unhappy with what they [...] Patient is followed in [facility]: He will contact us as needed. Time spent with patient (minutes): 60 documented in this encounter Plan of Treatment Upcoming Encounters Date Type Department Care Team (Latest Contact Info) Description 08/15/2024 8:00 AM CDT Comprehensive Visit Department of Neurology in [place], [place] [address] [place] [phone] Cristiane Palacio APRN, C.N.P., D.N.P. [address] [place] [phone] Kriss Wharton M.S., CCC-SOLID WASTE ENGINEER [address] [place] [phone] 08/15/2024 9:00 AM CDT Appointment Department of Radiology, [facility], in [place], [place] [address] [place] [phone] Cristiane Palacio APRN, C.N.P., D.N.P. [address] [place] [phone] Kriss Wharton M.S., CCC-SOLID WASTE ENGINEER [address] [place] [phone] 08/15/2024 9:45 AM CDT Clinical Support Department of Neurology in [address] [phone] Cristiane Palacio APRN C.N.P., D.N.P. [address] [place] [phone] Kriss Wharton M.S., CCC-SOLID WASTE ENGINEER [address] [place] [phone] 08/15/2024 1:00 PM CDT Office Visit Department of Otorhinolaryngology in [address] [phone] Rafal Raknin M.D. [address] [place] [phone] 08/15/2024 2:30 PM CDT Ancillary Procedure Department of Ophthalmology in [place], [place] [address] [place] [phone] Kandace Shankar M.D. [address] [place] [phone] 08/15/2024 3:00 PM CDT Comprehensive Visit Department of Ophthalmology in [address] [phone] Peña Carver M.D. [address] [place] [phone] 08/15/2024 4:15 PM CDT Office Visit Department of Ophthalmology in [place], [place] [address] [place] [phone] Kandace Shankar M.D. [address] [place] [phone] 08/20/2024 3:00 PM CDT Appointment Division of Gastroenterology in [place], [place] [address] [place] [phone] Cristiane Palacio, GRUPO, C.N.P., D.N.P. [address] [place] [address] [phone] 08/22/2024 4:20 PM CDT Telemedicine Division of Gastroenterology in [place], [place] [address] [place] [phone] Swapnil Jaramillo M.D. [address] [place] [phone] 10/22/2024 8:30 AM DIGITAL ACCOUNT DIRECTOR Clinical Communication Virtual Review in [place], [place] 200 [place] [address] 10/25/2024 10:30 AM DIGITAL ACCOUNT DIRECTOR Comprehensive Visit Department of Neurology in [place], [place] [address] [place] [phone] Oziel Odonnell M.D. [address] [place] [phone] documented as of this encounter Visit Diagnoses Diagnosis Dietary Counseling And Surveillance For Enteral Nutrition- Primary Dysphagia Stenosis Laryngeal Pneumonitis Due To Inhalation Of Food And Vomit (HCC) Gastrojejunostomy Percutaneous Status Post documented in this encounter Care Teams Shoer Relationship Specialty Start Date End Date Elsewhere, Pcp PCP - General Internal Medicine 4/15/24 documented as of this encounter
--- OUTSIDE RECORDS SUMMARY | 2024-08-09 02:44 | XMS_ITS | Encounter Summary ---
Author Organization [facility] Address [address] [place] [address] Care Team Providers Care Programming Intern Name Role Phone Elsewhere, Pcp Primary Care Provider Unavailabl e Reason for Referral * Outpatient (Routine) - Closed Specialty Diagnoses / Procedures Referred By Contwaldemar t Referred To Contact Otorhinolaryngology Rafal Rankin M.D. [address] [place] [address] [facility] Referral ID Status Reason Start Date Expiration Date Visits Re quested Visits Authorized [id number] Closed 06/17/2024 12/17/2025 1 1 Encounter Details Date Type Department Care Team (Late st Contact Info) Description 06/17/2024 Orders Only Department of Otorhinolaryngology in [place], [place] [address] [place] [phone] Rafal Rankin M.D. [address] [place] [phone] Social History Tobacco Use Types Packs/Day Years Used Date Smoking Tobacco: Former Cigarettes Q uit: 1985 Smokeless Tobacco: Never Alcohol Use Standard Drinks/Week Comments Not Currently 0 (1 standard drink = 0.6 oz pur e alcohol) [facility] Utilities Answer Date Recorded In the [...] your living situation today? I have a [facility] place to live 03/12/2024 Sex [...] CDT Comprehensive Visit Department of Neurology in [address] [phone] Cristiane Palacio APRN, C.N.P., D.N.P. [address] [place] [phone] Kriss Wharton M.S., CCC-PEDIATRICS HOSPITALIST [address] [place] [phone] 08/15/2024 9:00 AM CDT Appointment Department of Radiology, [facility], in [place], [place] [address] [place] [phone] Cristiane Palacio APRN, C.N.P., D.N.P. [address] [place] [phone] Kriss Wharton MBree, CCC-PEDIATRICS HOSPITALIST [address] [place] [address] [phone] 08/15/2024 9:45 AM CDT Clinical Support Department of Neurology in [address] [phone] Cristiane Palacio APRN, C.N.P., D.N.P. [address] [place] [phone] Kriss Wharton M.S., CCC-PEDIATRICS HOSPITALIST [address] [place] [address] [phone] 08/15/2024 1:00 PM CDT Office Visit Department of Otorhinolaryngology in [place], [place] [address] [place] [phone] Rafal Rankin M.D. [address] [place] [phone] 08/15/2024 2:30 PM CDT Ancillary Procedure Department of Ophthalmology in [place], [place] [address] [place] [phone] Kandace Shankar M.D. [address] [place] [phone] 08/15/2024 3:00 PM CDT Comprehensive Visit Department of Ophthalmology in [place], [place] [address] [place] [phone] Peña Carver M.D. [address] [place] [phone] 08/15/2024 4:15 PM CDT Office Visit Department of Ophthalmology in [place], [place] [address] [place] [phone] Kandace Shankar M.D. [address] [place] [phone] 08/20/2024 3:00 PM CDT Appointment Division of Gastroenterology in [place], [place] [address] [place] [phone] Cristiane Palacio APRN, C.N.P., D.N.P. [address] [place] [address] [phone] 08/22/2024 4:20 PM CDT Telemedicine Division of Gastroenterology in [place], [place] [address] [place] [phone] Swapnil Jaramillo M.D. [address] [place] [address] [phone] 10/22/2024 8:30 AM SHIRT CREASER Clinical Communication Virtual Review in [place], [place] [address] [place] [address] 10/25/2024 10:30 AM SHIRT CREASER Comprehensive Visit Department of Neurology in [place], [place] [address] [place] [phone] Oziel Odonnell M.D. [address] [place] [phone] Scheduled Referrals Name Type Priority Associated Diagnoses Order Schedule Otorhinolaryngology office visit (clinic) Outpatient Referral Routine Expected: 06/17/2024, Expires: 09/17/2025 documented as of this encounter Visit Diagnoses Not on filedocumented in this encounter Care Teams Programming Intern Relationship Specialty Start Date End Date Elsewhere, Pcp PCP - General Internal Medicine 02/26/24 documented as of this encounter
--- OUTSIDE RECORDS SUMMARY | 2024-08-09 02:44 | XMS_ITS | Encounter Summary ---
Author Organization [facility] Address [address] [place] [address] Care Team Providers Care Paster Hat Lining Name Role Phone Elsewhere, Pcp Primary Care Provider Unavailabl e Reason for Referral * Outpatient (Routine) - Closed Specialty Diagnoses / Procedures Referred By Contwaldemar t Referred To Contact Otorhinolaryngology Rafal Rankin M.D. [address] [place] [phone] [facility] Referral ID Status Reason Start Date Expiration Date Visits Re quested Visits Authorized [id number] Closed 07/17/2024 01/16/2026 1 1 Scheduling Instructions Ok to add on at [address] Rankin 07/18/24 Encounter Details Date Type Department Care Team (Late st Contact Info) Description 07/17/2024 Orders Only Department of Otorhinolaryngology in [place], [place] [address] [place] [phone] Rafal Rankin M.D. [address] [place] [phone] Social History Tobacco Use Types Packs/Day Years Used Date Smoking Tobacco: Former Cigarettes Q uit: 1985 Smokeless Tobacco: Never Alcohol Use Standard Drinks/Week Comments Not Currently 0 (1 standard drink = 0.6 oz pur e alcohol) [facility] Utilities Answer Date Recorded In the past [...] living situation today? I have a [facility] place to live 03/12/2024 Sex and Gender Information Value Date Recorded Sex Assigned at Male 03/12/2024 1:38 PM CDT Gender Identity Male 03/12/2024 1:38 PM CDT Sexual Orientation Straight 03/12/2024 1: 38 PM CDT documented as of this encounter Plan of Treatment Upcoming Encounters Date Type Department Care Team (Latest Contact Info) Description 08/15/2024 8:00 AM CDT Comprehensive Visit Department of Neurology in [place], [place] [address] [place] [phone] Cristiane Palacio APRN, C.N.P., D.N.P. [address] [place] [phone] Kriss Wharton M.S., [facility] [facility] [address] [place] [address] [phone] 08/15/2024 9:00 AM CDT Appointment Department of Radiology, [facility], in [place], [place] [address] [place] [phone] Cristiane Palacio APRN, C.N.P., D.N.P. [address] [place] [address] [phone] Kriss Wharton M.SEdith, [facility] [address] [place] [address] [phone] 08/15/2024 9:45 AM CDT Clinical Support Department of Neurology in [address] [phone] Cristiane Palacio APRN, C.N.P., D.N.P. [address] [place] [phone] Kriss Wharton M.Chris, [facility] [address] [place] [address] [phone] 08/15/2024 1:00 PM CDT Office Visit Department of Otorhinolaryngology in [place], [place] [address] [place] [phone] Rafal Rankin M.D. [address] [place] [phone] 08/15/2024 2:30 PM CDT Ancillary Procedure Department of Ophthalmology in [place], [place] [address] [place] [phone] Kandace Shankar M.D. [address] [place] [phone] 08/15/2024 3:00 PM CDT Comprehensive Visit Department of Ophthalmology in [place], [place] [address] [place] [phone] Peña Carver M.D. [address] [place] [phone] 08/15/2024 4:15 PM CDT Office Visit Department of Ophthalmology in [place], [place] [address] [place] [phone] Kandace Shankar M.D. [address] [place] [phone] 08/20/2024 3:00 PM CDT Appointment Division of Gastroenterology in [place], [place] [address] [place] [phone] Cristiane Palacio, GRUPO, C.N.P., D.N.P. [address] [place] [address] [phone] 08/22/2024 4:20 PM CDT Telemedicine Division of Gastroenterology in [place], [place] [address] [place] [address] [phone] Swapnil Jaramillo M.D. [address] [place] [phone] 10/22/2024 8:30 AM TAP DANCER Clinical Communication Virtual Review in [place], [place] 200 [place] [address] 10/25/2024 10:30 AM TAP DANCER Comprehensive Visit Department of Neurology in [place], [place] [address] [place] [phone] Oziel Odonnell M.D. [address] [place] [phone] Scheduled Referrals Name Type Priority Associated Diagnoses Order Schedule Otorhinolaryngology office visit (clinic) Outpatient Referral Routine Expected: 07/18/2024, Expires: 10/16/2025 documented as of this encounter Visit Diagnoses Not on filedocumented in this encounter Care Teams Paster Hat Lining Relationship Specialty Start Date End Date Elsewhere, Pcp PCP - General Internal Medicine 02/26/24 documented as of this encounter
--- OUTSIDE RECORDS SUMMARY | 2024-08-09 02:44 | XMS_ITS | Encounter Summary ---
Author Organization [facility] Address [address] [place] [address] Care Team Providers Care Shed Boss Name Role Phone Elsewhere, Pcp Primary Care Provider Unavailabl e Reason for Referral * Outpatient (Routine) - Closed Specialty Diagnoses / Procedures Referred By Contwaldemar t Referred To Contact Diagnoses Sialorrhea Procedures US Guidance Intraoperative Rafal Rankin M.D. 200 [place] [address] [facility] Referral ID Status Reason Start Date Expiration Date Visits Re quested Visits Authorized [id number] Closed 06/19/2024 06/19/2025 1 1 Encounter Details Date Type Department Care Team (Latest Contact Info) Description 06/18/2024 Orders Only Department of Otorhinolaryngology in [place], [place] [address] [place] [phone] Luz Muir R.N. [address] [place] [address] [phone] Sialorrhea (Primary Dx) Social History Tobacco Use Types Packs/Day Years Used Date Smoking Tobacco: Former Cigarettes Q uit: 1985 Smokeless Tobacco: Never Alcohol Use Standard Drinks/Week Comments Not Currently 0 (1 standard drink = 0.6 oz pur e alcohol) [facility] Utilities Answer Date Recorded In the [...] your living situation today? I have a [facility] place to live 03/12/2024 Sex and [...] CDT Comprehensive Visit Department of Neurology in [place], [place] [address] [place] [place] [phone] Cristiane Palacio APRN, C.N.P., D.N.P. [address] [place] [phone] Kriss Wharton, M.S., CCC-EDUCATIONAL AUDIOLOGIST [address] [place] [phone] 08/15/2024 9:00 AM CDT Appointment Department of Radiology, [facility], in [place], [place] [address] [place] [phone] Cristiane Palacio APRN, C.N.P., D.N.P. [address] [place] [phone] Kriss Wharton, M.S., CCC-EDUCATIONAL AUDIOLOGIST [address] [place] [address] [phone] 08/15/2024 9:45 AM CDT Clinical Support Department of Neurology in [address] [phone] Cristiane Palacio APRN, C.N.P., D.N.P. [address] [place] [phone] Kriss Wharton, M.S., CCC-EDUCATIONAL AUDIOLOGIST [address] [place] [address] [phone] 08/15/2024 1:00 PM CDT Office Visit Department of Otorhinolaryngology in [address] [place] [address] Rafal Rankin M.D. [address] [place] [address] [phone] 08/15/2024 2:30 PM CDT Ancillary Procedure Department of Ophthalmology in [place], [place] [address] [place] [place] [address] [phone] Kandace Shankar M.D. [address] [place] [phone] 08/15/2024 3:00 PM CDT Comprehensive Visit Department of Ophthalmology in [place], [place] [address] [place] [phone] Peña Carver M.D. [address] [place] [address] [phone] 08/15/2024 4:15 PM CDT Office Visit Department of Ophthalmology in [place], [place] [address] [place] [place] [phone] Kandace Shankar M.D. [address] [place] [place] [phone] 08/20/2024 3:00 PM CDT Appointment Division of Gastroenterology in [place], [place] [address] [place] [phone] Cristiane Palacio, GRUPO, C.N.P., D.N.P. [address] [place] [place] [address] [phone] 08/22/2024 4:20 PM CDT Telemedicine Division of Gastroenterology in [place], [place] [address] [place] [phone] Swapnil Jaramillo M.D. [address] [place] [address] [phone] 10/22/2024 8:30 AM CHIEF OF STAFF Clinical Communication Virtual Review in [place], [place] [address] [place] [phone] 10/25/2024 10:30 AM CHIEF OF STAFF Comprehensive Visit Department of Neurology in [place], [place] [address] [place] [place] [phone] Oziel Odonnell M.D. [address] [place] [phone] documented as of this encounter Results * [...] Sialorrhea documented in this encounter Care Teams Shed Boss Relationship Specialty Start Date End Date Elsewhere, Pcp PCP - General Internal Medicine 02/26/24 documented as of this encounter
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
--- OUTSIDE RECORDS SUMMARY | 2024-08-09 02:45 | XMS_ITS | Encounter Summary ---
Author Organization [facility] Address [address] [place] [address] Care Team Providers Care Director Food Safety Name Role Phone Elsewhere, Pcp Primary Care Provider Unavailabl e Reason for Visit * Reason Comments Scheduling Encounter Details Date Type Department Care Team (Late st Contact Info) Description 05/09/2024 Documentation Division of Endocrinology in [place], [place] [address] [place] [phone] Lesley Reis, R.N. [address] [place] [address] Scheduling Social History Tobacco Use Types Packs/Day Years Used Date Smoking Tobacco: Former Cigarettes Smokeless Tobacco: Never Alcohol Use Standard Drinks/Week Comments Not Currently 0 (1 standard drink = 0.6 oz pur e alcohol) [facility] Utilities Answer Date Recorded In the [...] He is currently followed by dietitians at [facility]. They will need to see the [facility] Dietitian, Nurse & Provider. Patient has not been seen by [facility] before. Requesting appointments 1st available. documented in this encounter Plan of Treatment Upcoming Encounters Date Type Department Care Team (Latest Contact Info) Description 08/15/2024 8:00 AM CDT Comprehensive Visit Department of Neurology in [address] [phone] Cristiane Palacio APRN, C.N.P., D.N.P. [address] [place] [phone] Kriss Wharton, M.Chris, [facility]-[address] [phone] 08/15/2024 9:00 AM CDT Appointment Department of Radiology, [facility], in [address] [phone] Cristiane Palacio APRN, C.N.P., D.N.P. [address] [place] [phone] Kriss Wharton, M.S., [facility]-[address] [phone] 08/15/2024 9:45 AM CDT Clinical Support Department of Neurology in [address] [phone] Cristiane Palacio APRN, C.N.P., D.N.P. [address] [place] [phone] Kriss Wharton M.SEdith, [facility]-[address] [phone] 08/15/2024 1:00 PM CDT Office Visit Department of Otorhinolaryngology in [place], [place] [address] [place] [phone] Rafal Rankin M.D. [address] [place] [phone] 08/15/2024 2:30 PM CDT Ancillary Procedure Department of Ophthalmology in [place], [place] [address] [place] [phone] Kandace Shankar M.D. [address] [place] [phone] 08/15/2024 3:00 PM CDT Comprehensive Visit Department of Ophthalmology in [place], [place] [address] [place] [phone] Peña Carver M.D. [address] [place] [phone] 08/15/2024 4:15 PM CDT Office Visit Department of Ophthalmology in [place], [place] [address] [place] [phone] Kandace Shankar M.D. [address] [place] [phone] 08/20/2024 3:00 PM CDT Appointment Division of Gastroenterology in [place], [place] [address] [place] [phone] Cristiane Palacio, GRUPO, C.N.P., D.N.P. [address] [place] [phone] 08/22/2024 4:20 PM CDT Telemedicine Division of Gastroenterology in [place], [place] [address] [place] [phone] Swapnil Jaramillo M.D. [address] [place] [phone] 10/22/2024 8:30 AM PRODUCT SUPPORT ENGINEER Clinical Communication Virtual Review in [place], [place] [address] [place] [address] 10/25/2024 10:30 AM PRODUCT SUPPORT ENGINEER Comprehensive Visit Department of Neurology in [place], [place] [address] [place] [phone] Oziel Odonnell M.D. [address] [place] [phone] documented as of this encounter Visit Diagnoses Not on filedocumented in this encounter Care Teams Director Food Safety Relationship Specialty Start Date End Date Elsewhere, Pcp PCP - General Internal Medicine 02/26/24 documented as of this encounter
--- OUTSIDE RECORDS SUMMARY | 2024-08-09 02:45 | XMS_ITS | Encounter Summary ---
Author Organization [facility] Address [address] [place] [address] Care Team Providers Care Public Improvement Inspector Name Role Phone Elsewhere, Pcp Primary Care Provider Unavailabl e Reason for Visit * Reason Onset Date Comments Blood Pressure 05/15/2024 Encounter Details Date Type Department Care Team (Latest Contact Info) Description 05/15/2024 10:30 AM CDT Clinical Communication Virtual Review in [place], [place] 200 [place] [address] Blood Pressure Social History Tobacco Use Types Packs/Day Years Used Date Smoking Tobacco: Former Cigarettes Q uit: 1985 Smokeless Tobacco: Never Tobacco Cessation:Counseling Given: Not Answered Alcohol Use Standard Drinks/Week Comments Not Currently 0 (1 standard drink = 0.6 oz pur e alcohol) [facility] Utilities Answer Date Recorded In the [...] your living situation today? I have a [facility] place to live 03/12/2024 Sex and [...] CDT Comprehensive Visit Department of Neurology in [place], [place] 200 [place] [address] Cristiane Palacio, GRUPO, C.N.P., D.N.P. [address] [place] [address] Kriss Wharton M.S., [facility]-COMPLIANCE MONITOR [address] [place] [phone] 08/15/2024 9:00 AM CDT Appointment Department of Radiology, [facility], in [place], [place] [address] [place] [phone] Cristiane Palacio APRN, C.N.P., D.N.P. [address] [place] [phone] Kriss Wharton M.S., [facility] [address] [place] [phone] 08/15/2024 9:45 AM CDT Clinical Support Department of Neurology in [place], [place] [address] [place] [phone] Cristiane Palacio APRN, C.N.P., D.N.P. [address] [place] [phone] Kriss Wharton M.S., [facility] [address] [place] [phone] 08/15/2024 1:00 PM CDT Office Visit Department of Otorhinolaryngology in [place], [place] [address] [place] [phone] Rafal Rankin M.D. [address] [place] [phone] 08/15/2024 2:30 PM CDT Ancillary Procedure Department of Ophthalmology in [place], [place] [address] [place] [phone] Kandace Shankar M.D. [address] [place] [phone] 08/15/2024 3:00 PM CDT Comprehensive Visit Department of Ophthalmology in [place], [place] [address] [place] [phone] Peña Carver M.D. [address] [place] [phone] 08/15/2024 4:15 PM CDT Office Visit Department of Ophthalmology in [place], [place] [address] [place] [phone] Kandace Shankar M.D. [address] [place] [phone] 08/20/2024 3:00 PM CDT Appointment Division of Gastroenterology in [place], [place] [address] [place] [phone] Cristiane Palacio APRN, C.N.P., D.N.P. [address] [place] [phone] 08/22/2024 4:20 PM CDT Telemedicine Division of Gastroenterology in [place], [place] [address] [place] [phone] Swapnil Jaramillo M.D. [address] [place] [phone] 10/22/2024 8:30 AM LENGTH CONTROL TESTER Clinical Communication Virtual Review in [place], [place] 200 [place] [address] 10/25/2024 10:30 AM LENGTH CONTROL TESTER Comprehensive Visit Department of Neurology in [place], [place] [address] [place] [phone] Oziel Odonnell M.D. [address] [place] [phone] documented as of this encounter Visit Diagnoses Not on filedocumented in this encounter Care Teams Public Improvement Inspector Relationship Specialty Start Date End Date Elsewhere, Pcp PCP - General Internal Medicine 02/26/24 documented as of this encounter
--- OUTSIDE RECORDS SUMMARY | 2024-08-09 02:45 | XMS_ITS | Encounter Summary ---
Author Organization [facility] Address [address] [place] [address] Care Team Providers Care Claims Correspondence Clerk Name Role Phone Elsewhere, Pcp Primary Care [...] In the past 12 months has e [employer], gas, oil, or water [employer] threatened to shut off services in your [...] living situation today? I have a [facility] place to live 03/12/2024 Sex and [...] CDT Comprehensive Visit Department of Neurology in [place], [place] 200 [place] [phone] Cristiane Palacio, GRUPO, C.N.P., D.N.P. [address] [place] [phone] Kriss Wharton M.S., [facility]-FOOD AND NUTRITION SUPERVISOR [address] [place] [phone] 08/15/2024 9:00 AM CDT Appointment Department of Radiology, [facility], in [place], [place] [address] [place] [phone] Cristiane Palacio APRN C.N.P., D.N.P. [address] [place] [phone] Kriss Wharton M.S., [employer]-FOOD AND NUTRITION SUPERVISOR [address] [place] [phone] 08/15/2024 9:45 AM CDT Clinical Support Department of Neurology in [address] [phone] Cristiane Palacio APRN, C.N.P., D.N.P. [address] [place] [phone] Kriss Wharton M.S., [employer]-FOOD AND NUTRITION SUPERVISOR [address] [place] [phone] 08/15/2024 1:00 PM CDT Office Visit Department of Otorhinolaryngology in [address] [phone] Rafal Rankin M.D. [address] [place] [phone] 08/15/2024 2:30 PM CDT Ancillary Procedure Department of Ophthalmology in [address] [phone] Kandace Shankar M.D. [address] [place] [phone] 08/15/2024 3:00 PM CDT Comprehensive Visit Department of Ophthalmology in [place], [place] [address] [place] [phone] Peña Carver M.D. [address] [place] [phone] 08/15/2024 4:15 PM CDT Office Visit Department of Ophthalmology in [place], [place] [address] [place] [phone] Kandace Shankar M.D. [address] [place] [phone] 08/20/2024 3:00 PM CDT Appointment Division of Gastroenterology in [place], [place] [address] [place] [phone] Cristiane Palacio APRN, C.N.P., D.N.P. [address] [place] [phone] 08/22/2024 4:20 PM CDT Telemedicine Division of Gastroenterology in [place], [place] [address] [place] [phone] Swapnil Jaramillo M.D. [address] [place] [phone] 10/22/2024 8:30 AM DIGITAL PERFORMANCE ANALYST Clinical Communication Virtual Review in [place], [place] 200 [place] [phone] 10/25/2024 10:30 AM DIGITAL PERFORMANCE ANALYST Comprehensive Visit Department of Neurology in [place], [place] [address] [place] [phone] Oziel Odonnell M.D. [address] [place] [phone] documented as of this encounter Procedures Procedure [...] on filedocumented in this encounter Care Teams Claims Correspondence Clerk Relationship Specialty Start Date End Date Elsewhere, Pcp PCP - General Internal Medicine 02/26/24 documented as of this encounter
--- OUTSIDE RECORDS SUMMARY | 2024-08-09 02:45 | XMS_ITS | Encounter Summary ---
Author Organization [facility] Address [address] [place] [address] Care Team Providers Care Handling Tech Name Role Phone Elsewhere, Pcp Primary Care Provider Unavailabl e Reason for Visit * Reason Onset Date Comments Previsit Preparation 05/02/2024 DEBORAH DD Encounter Details Date Type Department Care Team (Latest Contact Info) Description 05/02/2024 9:00 AM CDT Clinical Communication Virtual Review in [place], [place] [address] [place] [phone] Previsit Preparation (DEBORAH DD) Social History Tobacco Use Types Packs/Day Years Used Date Smoking Tobacco: Former Cigarettes Smokeless Tobacco: Never Tobacco Cessation:Counseling Given: Not Answered Alcohol Use Standard Drinks/Week Comments Not Currently 0 (1 standard drink = 0.6 oz pur e alcohol) [facility] Utilities Answer Date Recorded In the [...] your living situation today? I have a [facility] place to live 03/12/2024 Sex and [...] CDT Comprehensive Visit Department of Neurology in [place], [place] 200 [place] [address] Cristiane Palacio, GRUPO, C.N.P., D.N.P. 200 [place] [phone] Kriss Wharton M.S., [facility] [place] [facility] [address] [place] [phone] 08/15/2024 9:00 AM CDT Appointment Department of Radiology, [facility], in [place], [place] [address] [place] [phone] Cristiane Palacio APRN C.N.P., D.N.P. [address] [place] [phone] rKiss Wharton M.S., [facility] [address] [place] [phone] 08/15/2024 9:45 AM CDT Clinical Support Department of Neurology in [place], [place] [address] [place] [phone] Cristiane Palacio APRN, C.N.P., D.N.P. [address] [place] [phone] Kriss Wharton M.S., [facility] [address] [place] [phone] 08/15/2024 1:00 PM CDT Office Visit Department of Otorhinolaryngology in [place], [place] [address] [place] [phone] Rafal Rankin M.D. [address] [place] [phone] 08/15/2024 2:30 PM CDT Ancillary Procedure Department of Ophthalmology in [address] [phone] Kandace Shankar M.D. [address] [place] [phone] 08/15/2024 3:00 PM CDT Comprehensive Visit Department of Ophthalmology in [place], [place] [address] [place] [phone] Peña Carver M.D. [address] [place] [phone] 08/15/2024 4:15 PM CDT Office Visit Department of Ophthalmology in [place], [place] [address] [place] [phone] Kandace Shankar M.D. [address] [place] [phone] 08/20/2024 3:00 PM CDT Appointment Division of Gastroenterology in [place], [place] [address] [place] [phone] Cristiane Palacio, GRUPO, C.N.P., D.N.P. [address] [place] [phone] 08/22/2024 4:20 PM CDT Telemedicine Division of Gastroenterology in [place], [place] [address] [place] [phone] Swapnil Jaramillo M.D. [address] [place] [phone] 10/22/2024 8:30 AM BALE PILER Clinical Communication Virtual Review in [place], [place] 200 [place] [phone] 10/25/2024 10:30 AM BALE PILER Comprehensive Visit Department of Neurology in [place], [place] [address] [place] [phone] Oziel Odonnell M.D. [address] [place] [phone] documented as of this encounter Visit Diagnoses Not on filedocumented in this encounter Care Teams Handling Tech Relationship Specialty Start Date End Date Elsewhere, Pcp PCP - General Internal Medicine 02/26/24 documented as of this encounter
--- OUTSIDE RECORDS SUMMARY | 2024-08-09 02:45 | XMS_ITS | Encounter Summary ---
Author Organization [facility] Address [address] [place] [address] Care Team Providers Care Customer Sales Specialist Name Role Phone Elsewhere, Pcp Primary Care Provider Unavailabl e Reason for Visit * Outpatient (Routine) - Closed Specialty Diagnoses / Procedures Referred By Contact Referred To Contact Gastroenterology and Hepatology Diagnoses Dysphagia Gastroparesis Rafal Rankin M.D. [address] [place] [address] [facility] Referral ID Status Reason Start Date Expiration Date Visits Re quested Visits Authorized [id number] Closed 03/19/2024 09/18/2025 1 1 Encounter Details Date Type Department Care Team (Latest Contact Info) Description 05/03/2024 2:10 PM CDT Comprehensive Visit Division of Gastroenterology in [place], [place] [address] [place] [phone] Rafal Rankin M.D. [address] [place] [address] [phone] Stan Hernandez M.D. Heartburn (Primary Dx); Dysphagia; [...] your living situation today? I have a [facility] place to live 03/12/2024 Sex and [...] interested in having G-J tube exchanged at [place]: we will look into this. Agree with [...] bowel movements a day of watery stools (Cherry 7). He had recent started Imodium 2 [...] CDT Comprehensive Visit Department of Neurology in [address] [phone] Cristiane Palacio APRN, C.N.P., D.N.P. [address] [place] [address] [phone] Kriss Wharton M.S., [facility]-DRY STARCH OPERATOR [address] [place] [address] [phone] 08/15/2024 9:00 AM CDT Appointment Department of Radiology, [facility], in [address] [phone] Cristiane Palacio APRN, C.N.P., D.N.P. [address] [place] [phone] Kriss Wharton M.S., [facility]-DRY STARCH OPERATOR [address] [place] [phone] 08/15/2024 9:45 AM CDT Clinical Support Department of Neurology in [address] [phone] Cristiane Palacio APRN, C.N.P., D.N.P. [address] [place] [address] [phone] Kriss Wharton M.S., CCC-DRY STARCH OPERATOR [address] [place] [address] [phone] 08/15/2024 1:00 PM CDT Office Visit Department of Otorhinolaryngology in [place], [place] [address] [place] [phone] Rafal Rankin M.D. [address] [place] [phone] 08/15/2024 2:30 PM CDT Ancillary Procedure Department of Ophthalmology in [place], [place] [address] [place] [phone] Kandace Shankar M.D. [address] [place] [phone] 08/15/2024 3:00 PM CDT Comprehensive Visit Department of Ophthalmology in [place], [place] [address] [place] [phone] Peña Carver M.D. [address] [place] [phone] 08/15/2024 4:15 PM CDT Office Visit Department of Ophthalmology in [place], [place] [address] [place] [phone] Kandace Shankar M.D. [address] [place] [phone] 08/20/2024 3:00 PM CDT Appointment Division of Gastroenterology in [place], [place] [address] [place] [address] [phone] Cristiane Palacio, GRUPO, C.N.P., D.N.P. [address] [place] [phone] 08/22/2024 4:20 PM CDT Telemedicine Division of Gastroenterology in [place], [place] [address] [place] [phone] Swapnil Jaramillo M.D. [address] [place] [address] [phone] 10/22/2024 8:30 AM STORE WAREHOUSE ASSOCIATE Clinical Communication Virtual Review in [place], [place] 200 [place] [phone] 10/25/2024 10:30 AM STORE WAREHOUSE ASSOCIATE Comprehensive Visit Department of Neurology in [place], [place] [address] [place] [phone] Oziel Odonnell M.D. [address] [place] [phone] documented as of this encounter Results * Clostridioides (Clostridium) Difficile Toxin, Molecular Detection, PCR, Feces (05/09/2024 8:50 AM CDT) C. difficile Toxin, F Negative Negative 05/09/2024 12:00 PM CDT DTL Stool (Stool) 05/09/2024 8:5 0 AM CDT 05/09/2024 9:40 AM CDT Stan Izaguirre M.D. LAB MICROBIOLOG Y - GENERAL ORDERABLES [facility] 200 [place] [address], [facility] DTL [facility] 200 [place] [address] documented in this encounter Visit Diagnoses Diagnosis Heartburn- Primary Dysphagia Gastroparesis Diarrhea documented in this encounter Care Teams Customer Sales Specialist Relationship Specialty Start Date End Date Elsewhere, Pcp PCP - General Internal Medicine 02/26/24 documented as of this encounter
--- OUTSIDE RECORDS SUMMARY | 2024-08-09 02:45 | XMS_ITS | Encounter Summary ---
Author Organization [facility] Address [address] [place] [address] Care Team Providers Care Global Creative Chairman Name Role Phone Elsewhere, Pcp Primary Care [...] 0.6 oz pur e alcohol) [facility] Utilities Answer Date Recorded In the past 12 months has e [employer], gas, oil, or water [email or web address] threatened to shut off services in your [...] your living situation today? I have a [facility] place to live 03/12/2024 Sex and [...] CDT Comprehensive Visit Department of Neurology in [place], [place] [address] [place] [phone] Cristiane Palacio, GRUPO, C.N.P., D.N.P. [address] [place] [phone] Kriss Wharton M.S., [facility]-DIRECTOR OF OCCUPATIONAL HEALTH [address] [place] [phone] 08/15/2024 9:00 AM CDT Appointment Department of Radiology, [facility], in [place], [place] [address] [place] [phone] Cristiane Palacio APRN C.N.P., D.N.P. [address] [place] [phone] Kriss Wharton M.S., CCC-DIRECTOR OF OCCUPATIONAL HEALTH [address] [place] [phone] 08/15/2024 9:45 AM CDT Clinical Support Department of Neurology in [address] [phone] Cristiane Palacio APRN, C.N.P., D.N.P. [address] [place] [phone] Kriss Wharton M.S., CCC-DIRECTOR OF OCCUPATIONAL HEALTH [address] [place] [phone] 08/15/2024 1:00 PM CDT Office Visit Department of Otorhinolaryngology in [address] [phone] Rafal Rankin M.D. [address] [place] [phone] 08/15/2024 2:30 PM CDT Ancillary Procedure Department of Ophthalmology in [address] [phone] Kandace Shankar M.D. [address] [place] [phone] 08/15/2024 3:00 PM CDT Comprehensive Visit Department of Ophthalmology in [place], [place] [address] [place] [phone] Peña Carver M.D. [address] [place] [phone] 08/15/2024 4:15 PM CDT Office Visit Department of Ophthalmology in [place], [place] [address] [place] [phone] Kandace Shankar M.D. [address] [place] [address] [phone] 08/20/2024 3:00 PM CDT Appointment Division of Gastroenterology in [place], [place] [address] [place] [phone] Cristiane Palacio APRN, C.N.P., D.N.P. [address] [place] [phone] 08/22/2024 4:20 PM CDT Telemedicine Division of Gastroenterology in [place], [place] [address] [place] [phone] Swapnil Jaramillo M.D. [address] [place] [phone] 10/22/2024 8:30 AM IRRIGATION SYSTEM OPERATOR Clinical Communication Virtual Review in [place], [place] 200 [place] [phone] 10/25/2024 10:30 AM IRRIGATION SYSTEM OPERATOR Comprehensive Visit Department of Neurology in [place], [place] [address] [place] [phone] Oziel Odonnell M.D. [address] [place] [phone] documented as of this encounter Procedures Procedure [...] on filedocumented in this encounter Care Teams Global Creative Chairman Relationship Specialty Start Date End Date Elsewhere, Pcp PCP - General Internal Medicine 02/26/24 documented as of this encounter
--- OUTSIDE RECORDS SUMMARY | 2024-08-09 02:45 | XMS_ITS | Clinical Summary ---
Author Organization [facility] Address [place], [place] [address] Care Team Providers Care Environmental Compliance Officer Name Role Phone Sandy Matta DO Primary Care Provider Allergies Active Allergy Reactions Criticality Noted Date Comments Adhesive Tape-Silicones Contact Dermatitis High 05/15/2024 New reaction as of 05/15/2024. Medium reaction. Sulfamethoxazole-Trime thoprim Hives,Rash,Itching High 12/02/2023 whole body hives severe. pics reviewed. Tolmetin Hives 07/12/2007 Medications Medication Sig Dispensed Refills Start Date End Date Status Blood Pressure MonitorIndications :HTN (hypertension), benign 1 Device 0 01/06/2016 Active finasteride (PROSCAR) 5 mg tablet TAKE ONE TABLET BY MOUTH ONE TIME DAILY* 05/13/2023 Active durable medical equipment (DME)Indications:O ropharyngeal dysphagia 60cc syringe, threaded 100 Each 10/24/2023 Active durable medical equipment (DME)Indications:O ropharyngeal dysphagia Feed bags 100 Each 10/24/2023 Active acetaminophen (TYLENOL) 325 mg tablet 650 mg. 10/10/2023 Active food supplemt, lactose-reducedInd ications:Pharyngoe sophageal dysphagia,Tracheos charley status (HC),Oropharyngeal dysphagia complete peptide 1.5 calories at 85ml/hour (7 cartons total daily) via g tube. Free water flushes 150ml every 4 hours (total 900ml total per day) via g tube. Please give 30 days at a time. 1999 mL 11 12/13/2023 Active disposable glovesIndications: S/P percutaneous endoscopic gastrostomy (PEG) tube placement (HC) For home use. 200 Each 2 12/25/2023 Active NexIUM Packet 40 mg grps 12/24/2023 Active NaCl 0.9% 0.9 % sodium chloride neb solutionIndication s:Acute aspiration pneumonia (HC) Inhale 1 Neb via a nebulizer every 4 hours if needed for Wheezing. 45 mL 2 12/26/2023 Active prochlorperazine (COMPAZINE) 25 mg suppositoryIndicat ions:Nausea and vomiting, unspecified vomiting type Insert 1 Suppository (25 mg) rectally every 12 hours if needed for Nausea/Vomiting. 01/29/2024 Active fluticasone (50 mcg per actuation) nasal solution (FLONASE)Indicatio ns:Nasal obstruction Inhale 1 [place] into affected nostril(s) two times daily. 16 g 3 01/31/2024 Active traZODone (DESYREL) 50 mg tablet Administer 50 mg through feeding tube. 10/10/2023 Active durable medical equipment (DME)Indications:G astrojejunostomy tube status (HC) 12ml enteral syringe NeoMed with ENFIT CONNECTOR 6 Each 03/19/2024 Active durable medical equipment (DME)Indications:O n tube feeding diet [facility] feed bag Ref# [id number] 30 Each 11 03/27/2024 Active escitalopram oxalate (LEXAPRO) 20 mg tabletIndications: Reactive depression Take 1 Tablet (20 mg) by mouth once daily in the morning. 90 Tablet 3 06/04/2024 Active mag/aluminum/sod bicarb/alginc (GAVISCON ORAL) Take by mouth. Activ e famotidine (PEPCID) 40 mg/5 mL suspension Administer 20 mg via G-tube. 07/31/2024 Active tadalafiL (CIALIS) 10 mg tabletIndications: Erectile dysfunction of organic origin Take 1 Tablet (10 mg) by mouth once daily if needed (Erectile dysfunction). Take 30 minutes before sexual activity. 10 Tablet 11 08/05/2024 Active tadalafiL (CIALIS) 5 mg tabletIndications: Peyronie's disease,Erectile disorder Take 1 Tablet (5 mg) by mouth once daily. Take 30 minutes before sexual activity. 90 Tablet 02/20/2023 Discontinue d(*Medicati on adjustment) Hospital, Clinic, or Other Facility Administered Medication Ordered Dose Route Frequency Start Date End Date Status ondansetron 4 mg injection (ZOFRAN)Indications:Nausea and vomiting, unspecified vomiting type 4 mg IV ONE TIME 07/24/2024 07/24/2024 Ended Active Problems Problem Noted Date Diagnosed Date Erectile dysfunction of organic origin Gastrojejunostomy tube status 12/26/2023 Traumatic subarachnoid hemor rhage with unknown loss of consciousness status 10/24/2023 Heel pain, chronic, right 06/07/2023 Dermatofibroma of right hand 10/20/2021 Dermoid cyst of ear, left 10/20/2021 Left medial knee pain 07/19/2017 Knee effusion, left 07/19/2017 Ankylosing spondylitis 12/07/2015 MATEO 06/23/2012 AHI-11 06/30/2012 Allergic rhinitis, cause unspecified 01/13/2012 Sensorineural hearing loss, bilateral 12/02/2011 Personal history of colonic polyps 01/28/2011 Overview (06/16/2021): Colonoscopy 06/2021 polyp, repeat in 7 years with propofol Dermatophytosis of nail 07/08/2008 Resolved Problems Problem Noted Date Diagnosed Date Resolved Date Closed displaced fracture of first cervical vertebra 10/24/2023 08/05/2024 Encounter for long-term (cur rent) use of other medications 04/08/2011 08/05/2024 Encounters Date Type Department Care Team Description 08/05/2024 2:15 PM CDT Office Visit [facility] [address] [place] [address] Sandy Matta DO Medicare ANNUAL (subsequent) Visit (68 yr); Immunization/Inject ion 08/05/2024 Travel 07/25/2024 Orders Only [facility] Scanner 1 scan: (1-Ord) [facility], CHEST 2V, 07/25/2024 07/25/2024 Orders Only [facility] Scanner 1 scan: (1-Ord) [place], ABDOMEN 1V, 07/25/2024 07/24/2024 11:30 AM CDT Ancillary Procedure [facility] [address] [place] [address] 07/24/2024 10:40 AM CDT Office Visit [facility] [address] [place] [address] Sandy Matta DO Vomiting; Medication Management (augmentin) 07/24/2024 Travel 07/24/2024 Telephone [facility] [address] [place] [address] Sandy Matta DO FYI (Complications) 07/14/2024 Travel 07/05/2024 1:50 PM CDT Office Visit [facility] [address] [place] [address] Sandy Matta DO Medication Management (lexapro is helping) 07/05/2024 Travel 07/02/2024 Travel 06/03/2024 Telephone [facility] [address] [place] [address] Sandy Matta DO Home Care 06/03/2024 Patient Outreach [facility] [address] [place] [address] Sandy Matta DO Home Care 05/30/2024 1:28 PM CDT - 05/30/2024 11:59 PM CDT Hospital Encounter [address] [address] Sandy Matta DO Tierney, Doreen A, SLP 05/30/2024 Travel 05/23/2024 2:14 PM CDT - 05/23/2024 11:59 PM CDT Hospital Encounter [address] [address] Sandy Matta DO Tierney, Doreen A, SLP 05/23/2024 Travel 05/21/2024 2:12 PM CDT - 05/21/2024 11:59 PM CDT Hospital Encounter [address] [place] [address] Sandy Matta DO Tierney, Doreen A, SLP 05/21/2024 Travel 05/13/2024 2:24 PM CDT - 05/13/2024 11:59 PM CDT Hospital Encounter [address] [address] Sandy Matta DO Tierney, Doreen A, SLP 05/13/2024 11:00 AM CDT Ancillary Procedure [facility] [address] [place] [address] 05/13/2024 10:35 AM CDT Office Visit [facility] [address] [place] [address] Odessa Turner [facility] F/U (1 week follow up - still feeling sob / hard to catch breathe, feeling tired, queasy ) 05/13/2024 Travel 05/10/2024 12:59 PM CDT - 05/10/2024 11:59 PM CDT Hospital Encounter [address] [address] Sandy Matta DO Tierney, Doreen A, SLP 05/10/2024 Travel from Last 3 Months Immunizations Name Administration Dates Next Due AMB Influenza, IIV3 (Age >=3 years)(Flu Clinic Only) 08/07/2013,10/21/2009,09/05/2008 AMB Influenza, IIV4 PF (=>6 mos Flulaval,Fluzone Fluarix)(Flu Clinic Only) 08/04/2020,08/15/2019,07/31/2014 COVID-19 vaccine (Moderna 100mcg/0.5mL) PF, MDV 01/24/2021,12/29/2020 COVID-19 vaccine (Pfizer-Bio NTech 30mcg/0.3mL) PF, MDV 10/11/2021 Influenza A (H1N1), Inactiva manju (Age >=3 Years) 2009 Influenza Virus, Unspecified 07/22/2022, 09/02/2021,08/04/2020,100 01/2019,08/24/2018,09/08/2017,08/22/20 16,09/11/2015,07/31/2014,08/19/2013,0 08/07/2013,08/27/2010,10/21/2009,09/05,09/06/2007,09/13/2006, 5,09/09/2003 Influenza, High-dose Quadriv alent Inactivated 10/11/2023,07/22/2022,09/02/2021,08/13,08/07/2013,08/27/2010,11/17/19 10,10/21/2009,09/05/2008,09/06/2007,1 11/21/2004,09/09/2003 Influenza, IIV3 (Age >=3 years) 08/19/20 13,08/27/2010,09/05/2008,08/14,09/13/2006,09/21/2005,09/09/20 03 Influenza, IIV4 08/24/2018,09/08/2017,09/11/2015 Influenza, IIV4 (=>6mos) MDV 08/22/2016 Influenza, Inactivated AIIV4 (Age 65+ Years) Preserv Free 07/22/2022 Influenza, Inactivated IIV3 (Age 65+ Years) Preserv Free 08/05/2024 Pneumococcal Conj 20-valent (Prevnar 20) 06/07/2023 Pneumococcal [...] Tobacco: Former Cigarettes 0.5 5 1 973 - 1977 Smokeless Tobacco: Never Tobacco Cessation:Counseling Given: Yes Alcohol Use Standard Drinks/Week Comments Not Currently 7 (1 standard drink = 0.6 oz pur e alcohol) PHQ-2 Answer Date Recorded PHQ-2 TOTAL SCORE 0 08/05/2024 Social Connections Answer Date Recorded Frequency of [...] Sex Assigned at Male 10/03/2020 9:54 PM REAL ESTATE BRANCH MANAGER Gender Identity Not on file Sexual Orientation Not on file Obstetrics History Last Filed Vital Signs Vital Sign Reading Time Taken Comments Blood Pressure 97/66 08/05/2024 2:23 PM CDT Pulse 81 08/05/2024 2:23 PM CDT Temperature 36.4 ??C (97.5 ??F) 08/05/2024 2:23 PM CD T Respiratory Rate 18 03/17/2021 10:1 9 AM CDT Oxygen Saturation 98% 08/05/2024 2:23 PM CDT Inhaled Oxygen Concentration - - Weight 72.5 kg (159 lb 12.8 oz) 08/05/2024 2:23 PM CDT Height 180.7 cm (5' 11.13) 08/05/2024 2:31 PM C DT Body Mass Index 22.21 08/05/2024 2:23 PM CDT Plan of Treatment Health Maintenance Due Date Last Done Comments AAA screening age 65-74 2020 COVID-19 vaccine series ( season) 2024 04/22/2024, 10/11/2023, 10/24/2022, Additional history exists BMI (ht and wt on same day) for age 18+ 02/06/2025 02/07/2024, 06/07/2023, 01/12/2022, Additional history exists Depression screening for age 12+ 08/05/2025 08/05/2024, 06/03/2024, 03/07/2024, Additional history exists Medicare Wellness for age 65+ 08/06/2025, 06/07/2023, 01/12/2022 Lipids for age 45-75 06/07/2028 06/07/2023, 01/12/2022, [...] 06/07/2023, 06/07/2023, 01/12/2022 Tdap Completed 08/14/2023, 05/04/2012 Influenza for age 65+ Completed 08/05/2024 , 10/11/2023, 07/22/2022, Additional history exists Procedures Procedure Name Priority Date/Time Associated Diagnosis Comments SCAN-RADIOLOGY REPORT 07/25/2024 12:00 AM CDT SCAN-DIAGNOSTIC REPORT 07/25/2024 12:00 AM CDT XR CHEST 2 VIEWS PA AND LATERAL Routine 07/24/2024 11:31 AM CDT Recurrent aspiration pneumonia (HC) Nausea and vomiting, unspecified vomiting type XR CHEST 2 VIEWS PA AND LATERAL Routine 05/13/2024 10:59 AM CDT Recurrent aspiration pneumonia (HC) LIPID PANEL W REFLEX MEASURED LDL Routine 06/07/2023 2:09 PM CDT Lipid screening COLONOSCOPY SCREENING Routine 06/14/2021 12:00 AM CDT Personal history of colonic polyps ANTI HCV Routine 12/07/2015 8:46 AM REAL ESTATE BRANCH MANAGER Need for hepatitis C screening test from Last 3 Months or Most Recently Relevant to Health Maintenance Results * SCAN-RADIOLOGY REPORT (07/25/2024 12:00 AM CDT) Anatomical Region Laterality Modality Other Scanner OTHER * SCAN-DIAGNOSTIC REPORT (07/25/2024 12:00 AM CDT) Scanner OTHER * XR CHEST 2 VIEWS PA AND [...] Signed) Sandy Matta DO GENERAL IMAGING * (ABNORMAL) LIPID PANEL W REFLEX MEASURED LDL (06/07/2023 2:09 PM CDT) CHOLESTEROL,TOTAL 228(H) 100 - 199 mg/dL 06/08/2023 12:14 AM CDT [facility] Comment: Cholesterol, Total Reference Ranges Desirable <200 mg/dL Borderline 200-239 mg/dL High >=240 mg/dL TRIGLYCERIDES 132 <150 mg/dL 06/08/2023 12:14 AM CDT [facility] [place] [facility] HDL CHOLESTEROL 72 >40 mg/dL 12:14 AM CDT [facility] NON-HDL CHOLESTEROL 156(H) <145 mg/dl 06/08/2023 12:14 AM CDT [facility] [place] [facility] CHOL/HDL RATIO 3.17 <4.50 06/08/2023 12:14 AM CDT [facility] LDL CHOLESTEROL 130 <=130 mg/dL 06/08/2023 12:14 AM CDT [facility] VLDL CHOLESTEROL 26 <=30 mg/dL 06/08/2023 12:14 AM CDT [facility] PROVIDER ORDERED STATUS RANDOM 06/08/2023 12:14 AM CDT [facility] [place] [facility] Blood BLOOD SPECIMEN / Unknown Venipuncture / Unknown 06/07/2023 2:09 PM CDT 06/07/2023 2:09 PM CDT Sandy Matta DO CHEMISTRY [facility] [address] [place] [address], [place] * COLONOSCOPY SCREENING (06/14/2021 12:00 AM CDT) Sandy Matta DO GI PROCEDURE ORD * ANTI HCV [27129.2] (12/07/2015 8:46 AM REAL ESTATE BRANCH MANAGER) HEPATITIS C ANTIBODY Non-Reacti ve Non-Reacti ve 12/07/2015 1:24 PM REAL ESTATE BRANCH MANAGER [facility] Blood specimen (specimen) BLOOD SPECIMEN / Unknown Venipuncture / Unknown 12/07/2015 8:46 AM REAL ESTATE BRANCH MANAGER 12/07/2015 8:46 AM REAL ESTATE BRANCH MANAGER Narrative [facility] [place] [facility] - 12/07/2015 1:24 PM REAL ESTATE BRANCH MANAGER Antibodies to HCV not detected; does not exclude the possibility of exposure to HCV. Sandy Matta DO SEND OUTS [facility] [address] [place] [address], [place] from Last 3 Months or Most Recently Relevant to Health Maintenance Advance Directives * Full Code (Latest Code Status on File) Date Activated Date Inactivated Comments 09/18/2013 12:03 AM 09/19/2013 1:12 PM Care Teams Environmental Compliance Officer Relationship Specialty Start Date End Date Sandy Matta DO [address] [place] [address] PCP - General Family Practice 11/12/15
--- OUTSIDE RECORDS SUMMARY | 2024-08-09 02:45 | XMS_ITS | Encounter Summary ---
Author Organization [facility] Address [address] [place] [address] Care Team Providers Care Residential Leasing Agent Name Role Phone Elsewhere, Pcp Primary Care Provider Unavailabl e Encounter Details Date Type Department Care Team (Late st Contact Info) Description 05/07/2024 Orders Only Division of Gastroenterology in [place], [place] [address] [place] [address] Stan Hernandez M.D. Social History Tobacco Use Types Packs/Day Years Used Date Smoking Tobacco: Former Cigarettes Smokeless Tobacco: Never Alcohol Use Standard Drinks/Week Comments Not Currently 0 (1 standard drink = 0.6 oz pur e alcohol) [facility] Utilities Answer Date Recorded In the past 12 months has e [employer], gas, oil, or water [employer] threatened to shut off services in your [...] your living situation today? I have a [facility] place to live 03/12/2024 Sex [...] CDT Comprehensive Visit Department of Neurology in [place], [place] 200 [place] [phone] Cristiane Palacio, GRUPO, C.N.P., D.N.P. [address] [place] [address] Kriss Wharton M.S., [facility] [employer] FARMWORKER [address] [place] [phone] 08/15/2024 9:00 AM CDT Appointment Department of Radiology, [facility], in [place], [place] [address] [place] [phone] Cristiane Palacio APRN, C.N.P., D.N.P. [address] [place] [phone] Kriss Wharton M.S., [facility] [address] [place] [phone] 08/15/2024 9:45 AM CDT Clinical Support Department of Neurology in [address] [phone] Cristiane Palacio APRN, C.N.P., D.N.P. [address] [place] [phone] Kriss Wharton M.S., [facility] [address] [place] [phone] 08/15/2024 1:00 PM CDT Office Visit Department of Otorhinolaryngology in [address] [phone] Rafal Rankin M.D. [address] [place] [phone] 08/15/2024 2:30 PM CDT Ancillary Procedure Department of Ophthalmology in [place], [place] [address] [place] [phone] Kandace Shankar M.D. [address] [place] [phone] 08/15/2024 3:00 PM CDT Comprehensive Visit Department of Ophthalmology in [place], [place] [address] [place] [phone] Peña Carver M.D. [address] [place] [phone] 08/15/2024 4:15 PM CDT Office Visit Department of Ophthalmology in [place], [place] [address] [place] [phone] Kandace Shankar M.D. [address] [place] [phone] 08/20/2024 3:00 PM CDT Appointment Division of Gastroenterology in [place], [place] [address] [place] [phone] Cristiane Palacio, GRUPO, C.N.P., D.N.P. [address] [place] [phone] 08/22/2024 4:20 PM CDT Telemedicine Division of Gastroenterology in [place], [place] [address] [place] [phone] Swapnil Jaramillo M.D. [address] [place] [phone] 10/22/2024 8:30 AM SOLE MOLDER Clinical Communication Virtual Review in [place], [place] 200 [place] [address] 10/25/2024 10:30 AM SOLE MOLDER Comprehensive Visit Department of Neurology in [place], [place] [address] [place] [phone] Oziel Odonnell M.D. [address] [place] [phone] documented as of this encounter Visit Diagnoses Not on filedocumented in this encounter Care Teams Residential Leasing Agent Relationship Specialty Start Date End Date Elsewhere, Pcp PCP - General Internal Medicine 02/26/24 documented as of this encounter
--- OUTSIDE RECORDS SUMMARY | 2024-08-09 02:45 | XMS_ITS | Encounter Summary ---
Author Organization [facility] Address [address] [place] [address] Care Team Providers Care Truss Assembler Name Role Phone Elsewhere, Pcp Primary Care Provider Unavailabl e Encounter Details Date Type Department Care Team (Latest Contact Info) Description 05/17/2024 3:00 PM CDT Ancillary Procedure Department of Ophthalmology in [place], [place] [address] [place] [address] Kandace Shankar M.D. 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 I have a [facility] place to live 03/12/2024 Sex [...] CDT Comprehensive Visit Department of Neurology in [place], [place] [address] [place] [address] PalacioCristiane Bragg APRN C.N.P., D.N.P. [address] [place] [phone] Kriss Wharton M.S., [facility] [address] [place] [phone] 08/15/2024 9:00 AM CDT Appointment Department of Radiology, [facility], in [place], [place] [address] [place] [phone] Cristiane Palacio APRN C.N.P., D.N.P. [address] [place] [phone] Kriss Wharton, MBree, [facility] [address] [place] [phone] 08/15/2024 9:45 AM CDT Clinical Support Department of Neurology in [address] [phone] Cristiane Palacio APRN, C.N.P., D.N.P. [address] [place] [phone] Kriss Wharton, M.SEdith, [facility] [address] [place] [phone] 08/15/2024 1:00 PM CDT Office Visit Department of Otorhinolaryngology in [place], [place] [address] [place] [phone] Rafal Rankin M.D. [address] [place] [phone] 08/15/2024 2:30 PM CDT Ancillary Procedure Department of Ophthalmology in [place], [place] [address] [place] [phone] TaKandace haque M.D. [address] [place] [phone] 08/15/2024 3:00 PM CDT Comprehensive Visit Department of Ophthalmology in [place], [place] [address] [place] [phone] Peña Carver M.D. [address] [place] [phone] 08/15/2024 4:15 PM CDT Office Visit Department of Ophthalmology in [place], [place] [address] [place] [phone] Kandace Shankar M.D. [address] [place] [phone] 08/20/2024 3:00 PM CDT Appointment Division of Gastroenterology in [place], [place] [address] [place] [phone] Crsitiane Palacio, GRUPO, C.N.P., D.N.P. [address] [place] [phone] 08/22/2024 4:20 PM CDT Telemedicine Division of Gastroenterology in [place], [place] [address] [place] [phone] Swapnil Jaramillo M.D. [address] [place] [phone] 10/22/2024 8:30 AM SECURITY SERVICES SPECIALIST Clinical Communication Virtual Review in [place], [place] 200 [place] [phone] 10/25/2024 10:30 AM SECURITY SERVICES SPECIALIST Comprehensive Visit Department of Neurology in [place], [place] [address] [place] [phone] Oziel Odonnell M.D. [address] [place] [phone] documented as of this encounter Procedures Procedure [...] (HCC) documented in this encounter Care Teams Truss Assembler Relationship Specialty Start Date End Date Elsewhere, Pcp PCP - General Internal Medicine 02/26/24 documented as of this encounter
--- OUTSIDE RECORDS SUMMARY | 2024-08-09 02:45 | XMS_ITS | Encounter Summary ---
Author Organization [facility] Address [address] [place] [address] Care Team Providers Care Food And Beverage Coordinator Name Role Phone Elsewhere, Pcp Primary Care Provider Unavailabl e Encounter Details Date Type Department Care Team (Latest Contact Info) Description 05/03/2024 4:17 PM CDT - 05/03/2024 11:59 PM CDT Hospital Encounter Department of Laboratory Medicine and Pathology, [facility] in [place], [place] [address] [place] [address] Stan Hernandez M.D. Dysphagia; Diarrhea; Heartburn Discharge Disposition: Home or Self Care Social History Tobacco Use Types Packs/Day Years Used Date Smoking Tobacco: Former Cigarettes Smokeless Tobacco: Never Alcohol Use Standard Drinks/Week Comments Not Currently 0 (1 standard drink = 0.6 oz pur e alcohol) [facility] Utilities Answer Date Recorded In the [...] living situation today? I have a [facility] place to live 03/12/2024 Sex [...] as needed for pain or headaches. 10/10/2023 finasteride (PROSCAR) 5 mg tablet Administer 1 [...] 1 each daily. durable medical equipment (DME). [employer] feed bag Ref# [id number]. Change bag every 24 hours. 03/27/2024 UNABLE [...] CDT Comprehensive Visit Department of Neurology in [place], [place] 200 [place] [phone] Cristiane Palacio, GRUPO, C.N.P., D.N.P. [address] [place] [phone] Kriss Wharton M.S., [facility] 200 [place] [phone] 08/15/2024 9:00 AM CDT Appointment Department of Radiology, [facility], in [place], [place] [address] [place] [phone] Cristiane Palacio APRN C.N.P., D.N.P. [address] [place] [phone] Kriss Wharton M.S., [employer] [address] [place] [phone] 08/15/2024 9:45 AM CDT Clinical Support Department of Neurology in [place], [place] [address] [place] [phone] Cristiane Palacio APRN, C.N.P., D.N.P. [address] [place] [phone] Kriss Wharton M.S., [facility] [employer] [address] [place] [phone] 08/15/2024 1:00 PM CDT Office Visit Department of Otorhinolaryngology in [address] [phone] Rafal Rankin M.D. [address] [place] [phone] 08/15/2024 2:30 PM CDT Ancillary Procedure Department of Ophthalmology in [address] [phone] Kandace Shankar M.D. [address] [place] [phone] 08/15/2024 3:00 PM CDT Comprehensive Visit Department of Ophthalmology in [address] [phone] Peña Carver M.D. [address] [place] [phone] 08/15/2024 4:15 PM CDT Office Visit Department of Ophthalmology in [place], [place] [address] [place] [phone] Kandace Shankar M.D. [address] [place] [phone] 08/20/2024 3:00 PM CDT Appointment Division of Gastroenterology in [place], [place] [address] [place] [phone] Cristiane Palacio, BENCH SCIENTIST, C.N.P., D.N.P. [address] [place] [phone] 08/22/2024 4:20 PM CDT Telemedicine Division of Gastroenterology in [place], [place] [address] [place] [phone] Swapnil Jaramillo M.D. [address] [place] [phone] 10/22/2024 8:30 AM CARNIVAL WORKER Clinical Communication Virtual Review in [place], [place] 200 [place] [address] 10/25/2024 10:30 AM CARNIVAL WORKER Comprehensive Visit Department of Neurology in [place], [place] [address] [place] [phone] Oziel Odonnell M.D. [address] [place] [phone] documented as of this encounter Procedures Procedure [...] M.D. LAB MICROBIOLOG Y - GENERAL ORDERABLES [address] [address], [facility] 200 [place] [address] documented in this encounter Visit Diagnoses Diagnosis Dysphagia Diarrhea Heartburn documented in this encounter Care Teams Food And Beverage Coordinator Relationship Specialty Start Date End Date Elsewhere, Pcp PCP - General Internal Medicine 02/26/24 documented as of this encounter
[2024-08-09 02:47] LABS: Anion Gap 6 mEq/L (7-15); Blood Urea Nitrogen* 23 mg/dL (7-30); Carbon Dioxide* 33 mmol/L (20-32); Creatinine* 0.6 mg/dL (0.5-1.5); Estimated Glomerular Filt Rate 105 ml/min
[2024-08-09 02:48] LABS: Calcium* 8.8 mg/dL (8.4-10.6); Glucose* 119 mg/dL (60-115)
[2024-08-09 02:50] LABS: D Dimer Quantitative* 0.37 ug/ml (0.00-0.50)
[2024-08-09 02:51] LABS: PCR FLU A Negative PCR FLU A (Negative); PCR FLU B Negative PCR FLU B (Negative); PCR RSV Negative PCR RSV (Negative); SARS PCR* POSITIVE SARS-CoV-2 (Negative)
[2024-08-09 03:01] LABS: Troponin I* < 0.01 ng/mL (0.01-0.04)
[2024-08-09] MEDS: dexAMETHasone 10 MG/ML inj 6 MG IVP (03:09)
[2024-08-09] MEDS: ONDANSETRON 2 MG/ML inj 4 MG IVP ×2 (03:11→17:19)
[2024-08-09] MEDS: PIPERACILLIN/TAZOBACTAM 3.375 GM in 0.9 % SODIUM CHLORIDE Mini-bag 100 ML IVPB ×4 (03:59→22:04)
[2024-08-09] MEDS: ACETAMINOPHEN INJ 1,000 MG/100 ML VIAL 400 MG IVPB ×2 (04:02→17:19)
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
--- NOTE | 2024-08-09 07:48 | PC.NURSE ---
End of shift note: Pt on tele with NSR noted. Pt arrived from ED wearing OxyMask at 8 L/min though has since decreased to 2 L/min with O2 sat of 93%. Pt noted to be tachycardic upon admission to med/surg though heart rate has recently decreased to 93. Pt alert & oriented x 4 and able to make needs known. G/J tube in place to L abdomen. Pt is NPO and receives all meds via G tube and all feedings/hydration via J tube per home routine. Pt reported 4/10 back pain upon admission and was given scheduled IV Tylenol. IVs in place to bilateral forearms patent and SL. Pt has been denying nausea when asked with no vomiting noted. Meds given per orders. Bed alarm and gripper socks on for safety, call light within reach.
[2024-08-09] MEDS: ESCITALOPRAM 10 MG TABLET G-TUBE (08:52)
[2024-08-09] MEDS: ENOXAPARIN 40 MG/0.4 ML INJ SUBCUT (08:52)
[2024-08-09] MEDS: FINASTERIDE 5 MG TABLET G-TUBE (08:52)
[2024-08-09] MEDS: SODIUM CHLORIDE 0.9 % (FLUSH) 10 ML SYRINGE 5 ML IVF ×2 (08:52→21:55)
[2024-08-09] MEDS: PANTOPRAZOLE SODIUM 40 MG INJ IVP (08:53)
--- NOTE | 2024-08-09 10:26 | P.IMPN_ITS ---
Progress Note: A&P Assessment and plan (1) Acute hypoxic respiratory failure: Problem details: - Multifactorial due to aspiration pneumonia and covid. - Improving. Continue to wean oxygen as able. Status: Acute (2) COVID-19: Problem details: - Continue dexamethasone. Start remdesivir. I do not think he needs baricitinib at this time since oxygen needs are decreasing. Status: Acute (3) Recurrent aspiration pneumonia: Problem details: - Patient is high risk for aspiration at baseline. He already has a gastric tube and is chronically NPO, so there are no additional measures to prevent this. - Restarting tube feeds today. Monitor for nausea, vomiting, aspiration. - Continue zosyn Status: Acute (4) On tube feeding diet: Problem details: Resume normal tube feeding protocol, 14 hours daily. Elevate head of bed at all times, whether feeding or not TUBE FEEDS: Compleat Peptide 1.5 Start Time: 06:00 # hours/day: 14 CCs per hour: 125 Flush/Bolus Information: Formula through J tube. Meds through G tub. Free water flushes: 120 mL through J tube before and after feeding (BID) 120 mL through G tube before and after medications (TID) Additional 60 ML through G or J tube TID Status: Acute (5) Nausea: Problem details: Relatively persistent and continuous nausea associated with tube feedings. Slowing down tube feedings helps but he is unable to get adequate fluid and calories or unable to get a break at night if he slows the feedings too much. EGD earlier this year at [facility] showed esophagitis Status: Chronic (6) Swallowing difficulty: Problem details: Patient reports being unable to swallow anything, solid or liquid. Unable to swallow his own secretions. He spits them out or suctions them. He does tell me that he burps a lot. This may reflect some ability to swallow air. Continue with outpatient swallow therapy. Status: Chronic (7) Vomiting: Problem details: Patient has significant ongoing problems with nausea and vomiting. He has relatively persistent nausea. The triggers it seem to make this worse include J-tube feedings at are going into quickly and any attempt to give extra fluids through his G-tube cause nausea. This suggests a GI cause of nausea. He also seems to have problems with nausea when he gets up and walks around her moves his head too quickly suggesting and neurologic cause of nausea as well. He has felt that metoclopramide has helped in the past so we tried another course of treatment with low-dose metoclopramide. He will monitor to see which of his antiemetics seem more effective and better tolerated Status: Acute Plan VTE prophylaxis with low dose enoxaparin. Subjective Time Seen by Provider: 10:00 Date Seen: 08/09/24 Interval history: Vinh tells me that he feels better and is breathing better today. He is requiring less oxygen and we are continuing to wean the oxygen today. His gave us the details of his tube feeds and flushes: Compleat Peptide 1.5 Start Time: 06:00 # hours/day: 14 CCs per hour: 125 Flush/Bolus Information: Formula through J tube. Meds through G tub. Free water flushes: 120 mL through J tube before and after feeding (BID) 120 mL through G tube before and after medications (TID) Additional 60 ML through G or J tube TID Exam Narrative: Exam Narrative: General: No acute distress. Awake, sleepy, but able to carry on a conversation without difficulty, oriented x3. Hoarse voice. No pallor. No jaundice. Tracheostomy scar visible on base of neck/upper chest. Oropharynx: Clear. Mucous membranes moist. Cardiovascular: Regular rate and rhythm. No murmurs, gallops, or rubs. Respiratory: Clear to auscultation bilaterally. No wheezes or crackles. Abdomen: GJ tube in place. No erythema or drainage at insertion site. Bowel sounds present. Soft, nondistended, nontender. Extremities: No pedal edema. Const: Vital Signs, click to edit/add: Vital Signs - 24 hr 08/09/24 02:10 08/09/24 02:13 08/09/24 02:13 Temperature 102.8 F H Pulse Rate Pulse Rate [Left P ulse Oximeter] Pulse Rate [Pulse Oximeter] 116 H Respiratory Rate 22 Blood Pressure Blood Pressure [Le ft Upper Arm] 125/69 Blood Pressure [Ri ght Arm] Pulse Oximetry 91 92 92 Oxygen Delivery Me thod OxyMask OxyMask Oxygen Flow Rate 8 8 08/09/24 02:21 08/09/24 02:30 08/09/24 02:45 Temperature Pulse Rate 119 H 123 H 126 H Pulse Rate [Left P ulse Oximeter] Pulse Rate [Pulse Oximeter] Respiratory Rate Blood Pressure Blood Pressure [Le ft Upper Arm] Blood Pressure [Ri ght Arm] Pulse Oximetry 92 95 94 Oxygen Delivery Me thod OxyMask OxyMask OxyMask Oxygen Flow Rate 8 8 8 08/09/24 02:52 08/09/24 03:15 08/09/24 03:31 Temperature Pulse Rate 123 H 121 H 117 H Pulse Rate [Left P ulse Oximeter] Pulse Rate [Pulse Oximeter] Respiratory Rate 24 22 22 Blood Pressure 124/62 117/70 111/65 Blood Pressure [Le ft Upper Arm] Blood Pressure [Ri ght Arm] Pulse Oximetry 97 96 93 Oxygen Delivery Me thod OxyMask OxyMask OxyMask Oxygen Flow Rate 8 2 7 08/09/24 04:02 08/09/24 04:41 08/09/24 04:50 Temperature 100.1 F H 100.1 F H Pulse Rate Pulse Rate [Left P ulse Oximeter] 114 H Pulse Rate [Pulse Oximeter] Respiratory Rate 24 24 Blood Pressure Blood Pressure [Le ft Upper Arm] Blood Pressure [Ri ght Arm] 110/60 Pulse Oximetry 95 95 Oxygen Delivery Me thod OxyMask OxyMask Oxygen Flow Rate 8 3 08/09/24 06:45 08/09/24 07:00 08/09/24 07:00 Temperature 98.9 F Pulse Rate 99 Pulse Rate [Left P ulse Oximeter] 96 96 Pulse Rate [Pulse Oximeter] Respiratory Rate 16 16 Blood Pressure Blood Pressure [Le ft Upper Arm] Blood Pressure [Ri ght Arm] 101/59 L Pulse Oximetry 92 Oxygen Delivery Me thod OxyMask Oxygen Flow Rate 2 08/09/24 08:50 Temperature Pulse Rate Pulse Rate [Left P ulse Oximeter] Pulse Rate [Pulse Oximeter] Respiratory Rate 16 Blood Pressure Blood Pressure [Le ft Upper Arm] Blood Pressure [Ri ght Arm] Pulse Oximetry 92 Oxygen Delivery Me thod OxyMask Oxygen Flow Rate 2 Labs Labs: Laboratory Results - last 24 hr 08/09/24 08/09/24 02:07 02:10 WBC 2.47 L RBC 4.09 L Hgb 12.7 L Hct 38.9 MCV 95 MCH 31 MCHC 33 RDW Coeff of Fernando 12.0 Plt Count 106 L Neut % (Auto) 86.7 H Lymph % (Auto) 8.9 L [place] % (Auto) 3.6 Eos % (Auto) 0.0 Baso % (Auto) 0.4 Neut # (Auto) 2.10 Lymph # (Auto) 0.20 L [place] # (Auto) 0.10 Eos # (Auto) 0.00 Baso # (Auto) 0.00 Abs Immat Gran (auto) 0.00 Imm/Tot Granulo (auto) 0.4 D-Dimer Quant (PE/DVT) 0.37 ABG pH 7.43 ABG pCO2 48 H ABG pO2 62.2 L ABG HCO3 32 H ABG Total CO2 29 ABG O2 Saturation 94 ABG Base Excess 6.2 H Carboxyhemoglobin 1.0 Sodium 133 L Potassium 4.1 Chloride 94 L Carbon Dioxide 33 H Anion Gap 6 L BUN 23 Creatinine 0.6 Estimated Creat Clear 77.60 Estimated GFR 105 Glucose 119 H Lactate 1.6 Calcium 8.8 Troponin I < 0.01 L SARS-CoV-2 (PCR) POSITIVE SARS-CoV-2 A Influenza Type A (PCR) Negative PCR FLU A Influenza Type B (PCR) Negative PCR FLU B RSV (PCR) Negative PCR RSV
--- OUTSIDE RECORDS SUMMARY | 2024-08-09 11:38 | XMS_ITS | Encounter Summary ---
Author Organization [facility] Address [address] [place] [id number] Care Team Providers Care Fuel Storage Technician Name Role Phone JurgenTami OD Unavailable [phone] Sandy Matta MD Primary Care Provider [phone] Tami Seaman OD Unavailable [phone] Guy Yost MD Unavailable + [phone] Reason for Visit * Reason Onset Date Comments Previsit 07/16/2024 Encounter Details Date Type Department Care Team (Late st Contact Info) Description 07/16/2024 PRE VISIT [facility] [address] [id number] Elaina Cervantes MD [address] [place] [id number] Previsit Social History Tobacco Use Types [...] INFORMATION: Date: 07/16/24 Time: 3:30 PM Location: [facility] [place] - ENT REFERRAL INFORMATION: Referring provider: Sandy Matta MD Referring providers clinic: [facility] Reason for visit/diagnosis Per pt's spouse-trouble swallowing, airway restriction, in hospital weekly for pneumonia. [facility] verified. Records in [facility]. Higher priority referral being sent. Please send message when received. Please call [phone] Sandy Matta-PCP for more information RECORDS REQUESTED FROM: Clinic name Comments Records Status Imaging Status [facility] 01/26/24, 01/22/24- referral Sandy Matta MD 12/29/23, 12/12/23 - OV Ari Lopes MD More in [facility] Images: 02/14/24- XR Video Swallow 05/13/2024 XR chest [facility] 02/27/24- pending req PACS [facility] 02/14/24- Pending req 02/27/24- Received [facility] 10/09/23- XR Chest 10/02/23- XR Chest 10/01/23- XR Chest 09/29/23- XR Chest 09/19/23- CT Head 09/19/23- CT Spine 09/05/23- XR Chest 09/01/23- XR Chest 08/30/23- XR Chest 08/29/23- XR Chest [facility] 02/14/24- Pending req Disc received 02/22/24 [facility] 03/19/2024 OV with Rafal Rankin M.D. [facility]03/22/2024 [place] SWALLOW [facility] Req 06/24/24 PACS June 24, 2024 10:51 AM - request to [facility] to push images to [facility] June 26, 2024 10:40 AM - Images received and resolved in PACS -Paola documented in this encounter Plan of Treatment Not on file documented as of this encounter Visit Diagnoses Not on filedocumented in this encounter Care Teams Fuel Storage Technician Relationship Specialty Start Date End Date Sandy Matta MD [address] [place] [address] PCP - General Family Medicine 09/18/23 Tami Seaman OD [address] [place] [address] Optometry 09/18/23 Tami Seaman, OD [address] [place] [address] Assigned Surgical Provider 10/14/23 Guy Yost MD [address] [place] [address] Otolaryngology 01/22/24 documented as of this encounter
--- OUTSIDE RECORDS SUMMARY | 2024-08-09 11:38 | XMS_ITS | Encounter Summary ---
Author Organization [place] Address [address] [place] [address] Care Team Providers Care Bag Loader Name Role Phone Tami Seaman OD Unavailable [phone] Sandy Matta MD Primary Care Provider [phone] Tami Seaman OD Unavailable [phone] Guy Yost MD Unavailable + [phone] Encounter Details Date Type Department Care Team (Late st Contact Info) Description 07/19/2024 [facility] [place] [address] [place] [address] Jeronimo Guido, [address] [address]43[address] Social History Tobacco Use Types Packs/Day Years [...] on filedocumented in this encounter Care Teams Bag Loader Relationship Specialty Start Date End Date [place] [address] [address] PCP - General Family Medicine 09/18/23 Tami Seaman OD [address] [place] [address] Optometry 09/18/23 Tami Seaman, OD [address] [place] [address] Assigned Surgical Provider 10/14/23 Guy Yost MD [address] [place] [address] Otolaryngology 01/22/24 documented as of this encounter
--- OUTSIDE RECORDS SUMMARY | 2024-08-09 11:38 | XMS_ITS | Encounter Summary ---
Author Organization [place] Address [address] [place] [address] Care Team Providers Care Supervisor Pipeline Maintenance Name Role Phone Jurgen Tami OD Unavailable [phone] Sandy Matta MD Primary Care Provider [phone] Tami Seaman OD Unavailable [phone] Guy Yost MD Unavailable + [phone] Encounter Details Date Type Department Care Team [...] on filedocumented in this encounter Care Teams Supervisor Pipeline Maintenance Relationship Specialty Start Date End Date Sandy Matta MD Paolo Alcalaerson [address] [address] PCP - General Family Medicine 09/18/23 Tami Seaman OD [address] [place] [address] [phone] Optometry 09/18/23 Tami Seaman OD [address] [place] [address] Assigned Surgical Provider 10/14/23 Guy Yost MD [address] [place] [address] Otolaryngology 01/22/24 documented as of this encounter
--- OUTSIDE RECORDS SUMMARY | 2024-08-09 11:38 | XMS_ITS | Encounter Summary ---
Author Organization [place] Address [address] [place] [address] Care Team Providers Care Shrimp Packer Name Role Phone JurgenTami OD Unavailable [phone] Sandy Matta MD Primary Care Provider [phone] Tami Seaman OD Unavailable [phone] Guy Yost MD Unavailable + [phone] Encounter Details Date Type Department Care Team (Late st Contact Info) Description 07/16/2024 2:45 PM CDT Office Visit [facility] [address] 4th [place] [address] Sandy Matta MD [address] [place] [address] [place] [address] Provider, Rashard Ent Dysphonia Biology Instructor Dysphonia (Primary Dx); Inspiratory stridor; Bilateral vocal [...] do to help. -Zacarias Guido M.M., M.A., [facility] Speech-Language Pathologist Certificate of Vocology documented in this encounter Progress Notes * Jeronimo Guido SLP - 07/16/2024 2:45 PM CDT [facility] Evaluation report Clinician: Jeronimo Guido M.M., M.A., [facility] Seen in conjunction with: Dr. Cervantes Patient: [...] seen by Dr. [facility]in [facility] the [facility] with discussion of possible avenues [...] SWALLOWING Please see my colleague Maryann Wilhelm CCC-FRINGE [facility]'s note from today's date for full details [...] please see Dr. Cervantes and Maryann Wilhelm, CCC-FRINGE MAKER's notes from today's date for additional details [...] stressful 4 EAT-10 40 PERCEPTUAL EVALUATION (CPT 78334) POSTURE / TENSION: neck and shoulders BREATHING: [...] Dr. Cervantes and my colleague Bessie Wilhelm [facility]'s notes from today's date. Patient will be seen in the future as recommended by the physician. Certification period: Evaluation only This treatment plan was developed with the patient who agreed with the recommendations. TOTAL SERVICE TIME: 45 minutes EVALUATION OF VOICE AND RESONANCE (19159) NO CHARGE FACILITY FEE (26923) Jeronimo Guido M.M., M.A., [facility] Speech-Language Pathologist Certificate of Vocology [phone] *this report was created in part through [...] larynx documented in this encounter Care Teams Shrimp Packer Relationship Specialty Start Date End Date Sandy Matta MD [address] [place] [address] PCP - General Family Medicine 09/18/23 Tami Seaman, OD [address] [place] [address] [phone] Optometry 09/18/23 Tami Seaman, OD [address] [place] [address] 380555 Assigned Surgical Provider 10/14/23 Guy Yost MD [address] [place] [address] Otolaryngology 01/22/24 documented as of this encounter
--- OUTSIDE RECORDS SUMMARY | 2024-08-09 11:38 | XMS_ITS | Encounter Summary ---
Author Organization [facility] Address [address] [place] [address] Care Team Providers Care Public Service Officer Name Role Phone Jurgen Tami OD Unavailable [phone] Sandy Matta MD Primary Care Provider [phone] Tami Seaman OD Unavailable [phone] Guy Yost MD Unavailable + [phone] Encounter Details Date Type Department Care Team [...] filedocumented in this encounter Care Teams Public Service Officer Relationship Specialty Start Date End Date Sandy Matta MD Paolo Alcalaerson [place] [address] PCP - General Family Medicine 09/18/23 Tami Seaman OD [address] [place] [address] [phone] Optometry 09/18/23 Tami Seaman OD [address] [place] [address] Assigned Surgical Provider 10/14/23 Guy Yost MD [address] [place] [address] Otolaryngology 01/22/24 documented as of this encounter
--- OUTSIDE RECORDS SUMMARY | 2024-08-09 11:38 | XMS_ITS | Clinical Summary ---
Author Organization [facility] Address [address] [place] [address] Care Team Providers Care Assurance Assistant Name Role Phone JurgenTami OD Unavailable [phone] Sandy Matta MD Primary Care Provider [phone] Tami Seaman OD Unavailable [phone] Guy Yost MD Unavailable +[phone] Allergies Active Allergy Reactions Criticality Noted Date [...] sodium chloride (OCEAN) 0.65 % nasal spray [place] 1-2 sprays in nostril 12/07/2023 Active traZODone [...] Care Team Description 07/19/[address] [facility] Voice [address] [phone] Jeronimo Guido, FLOR 07/17/[address] [facility] Ear Nose and Throat [address] [address] Elaina Cervantes MD 07/16/2024 3:30 PM CDT Therapy Visit 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 Nose [facility] Throat [address] [address] Elaina Cervantes MD Previsit 07/12/2024 Travel from [...] Procedure Name Priority Date/Time Associated Diagnosis Comments [place] BEHAVIORAL & QUALITATIVE ANALYSIS VOICE AND RESONANCE Routine 07/23/2024 11:47 AM CDT Dysphonia Inspiratory stridor Bilateral vocal fold paralysis NC LARYNGOSCOPY FLEX FIBEROPTIC, DIAGNOSTIC Routine 07/16/2024 3:47 PM CDT Oropharyngeal dysphagia IMAGESTREAM RECORDING ORDER Routine 07/16/2024 3:27 PM CDT Dysphonia from Last 3 Months Results * IMAGESTREAM RECORDING ORDER (07/16/2024 3:27 PM CDT) 07/16/2024 3:27 PM CDT Elaina Cervantes MD OTHER RADIOLOGY RESULTS from Last 3 Months Care Teams Assurance Assistant Relationship Specialty Start Date End Date Sandy Matta MD [address] [place] [address] PCP - General Family Medicine 09/18/23 Tami Seaman, OD [address] [place] [address] [phone] Optometry 09/18/23 Tami Seaman, OD [address] [place] [address] [id number] Assigned Surgical Provider 10/14/23 Guy Yost MD [address] [place] [address] Otolaryngology 01/22/24
--- OUTSIDE RECORDS SUMMARY | 2024-08-09 11:38 | XMS_ITS | Clinical Summary ---
Author Organization [facility] Address [address] [facility] [place] [address] Phone Care Team Providers Care Travel Pta Name Role Phone Sadny Matta Primary Care Provider Allergies No known [...] Comments Blood Pressure 134/82 10/09/2023 7:44 PM ROSTER CLERK Pulse 80 10/10/2023 8:00 AM ROSTER CLERK Temperature 36 ??C (96.8 ??F) 10/09/2023 7:44 PM ROSTER CLERK Respiratory Rate 18 10/10/2023 8:00 AM ROSTER CLERK Oxygen Saturation 98% 10/10/2023 8:00 AM ROSTER CLERK Inhaled Oxygen Concentration - - Weight 87.8 kg (193 lb 9.6 oz) 10/04/2023 4:00 A M ROSTER CLERK Height 180.3 cm (5' 11) 08/29/2023 2:44 [...] have received informed consent. Yes Care Teams Travel Pta Relationship Specialty Start Date End Date Sandy Matta DO [address] [place] [address] PCP - General Family Medicine 08/30/23
--- OUTSIDE RECORDS SUMMARY | 2024-08-09 11:38 | XMS_ITS | Encounter Summary ---
Author Organization [place] Address [address] [place] [address] Care Team Providers Care Lease Administrator Name Role Phone Tami Seaman OD Unavailable [phone] Sandy Matta MD Primary Care Provider [phone] Tami Seaman OD Unavailable [phone] Guy Yost MD Unavailable + [phone] Encounter Details Date Type Department Care Team (Late st Contact Info) Description 07/17/2024 [facility] Medical Advice [facility] [address] [place] [address] Elaina Cervantes MD [address] [place] [address] Social History Tobacco Use Types Packs/Day [...] on filedocumented in this encounter Care Teams Lease Administrator Relationship Specialty Start Date End Date [place] [address] [address] PCP - General Family Medicine 09/18/23 Tami Seaman, OD [address] [place] [address] Optometry 09/18/23 aTmi Seaman, OD [address] [place] [address] Assigned Surgical Provider 10/14/23 Guy Yost MD [address] [place] [address] Otolaryngology 01/22/24 documented as of this encounter
--- OUTSIDE RECORDS SUMMARY | 2024-08-09 11:38 | XMS_ITS | Referral Summary ---
Author Organization [facility] Address [address] [place] [address] Care Team Providers Care Industrial Waste Treatment Technician Name Role Phone JurgenTami OD Unavailable [phone] Sandy Matta MD Primary Care Provider [phone] Tami Seaman OD Unavailable [phone] Guy Yost MD Unavailable + [phone] Encounters Date Type Department Care Team Description 07/19/2024 MyC Medical Advice [facility] Voice [address] [phone] Jeronimo Guido, FLOR 07/17/2024 MyC Medical Advice [facility] Clinic [address] [address] Elaina Cervantes MD 07/16/2024 Travel 07/16/2024 3:30 PM CDT Therapy Visit [facility] Rehabilitation Services [address] [phone] Maryann Wilhelm Dysphagia, oropharyngeal phase (Primary Dx) 07/16/2024 PRE VISIT [facility] Throat [address] [phone] Elaina Cervantes MD Previsit 07/16/2024 2:45 PM CDT Office Visit [facility] Voice [address] [phone] Sandy Matta MD Provider, Ent Dysphonia 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 Dysphonia (Primary Dx); Inspiratory stridor; Bilateral vocal fold paralysis 07/16/2024 2:45 PM CDT Office Visit [facility] [address] 4th [place] [phone] Sandy Matta MD Gray, Raluca, MD Dysphonia [...] sodium chloride (OCEAN) 0.65 % nasal spray [place] 1-2 sprays in nostril 12/07/2023 Active traZODone [...] RESULTS from Last 3 Months Care Teams Industrial Waste Treatment Technician Relationship Specialty Start Date End Date [place] [address] [address] PCP - General Family Medicine 09/18/23 Tami Seaman, OD [address] [place], [place] [phone] Optometry 09/18/23 Tami Seaman, OD [address] [place] [address] [phone] Assigned Surgical Provider 10/14/23 Guy Yost MD [address] [place], [place] [phone] Otolaryngology 01/22/24
--- OUTSIDE RECORDS SUMMARY | 2024-08-09 11:38 | XMS_ITS | Encounter Summary ---
Author Organization [facility] Address [address] [place] [address] Care Team Providers Care Hand Inspector Name Role Phone JurgenTami OD Unavailable [phone] Sandy Matta MD Primary Care Provider [phone] Tami Seaman OD Unavailable [phone] Guy Yost MD Unavailable + [phone] Reason for Referral * Therapeutic Services (Routine: Next available opening) - Pending Review Specialty Diagnoses / Procedures Referred By Karine velasco Referred To Contact Diagnoses Dysphagia, oropharyngeal phase [facility] Felt Hat Flanging Operator Ent [address] [facility] 4th [place] [address] Referral ID Status Reason Start Date Expiration Date V isits Requested Visits Authorized [id number] Pending Review 07/16/2024 07/16/2025 1 1 Question Answer Course of Action: Evaluation and Treatment Speech Treatment Diagnosis: Dysphagia Specialty Services: Clinical Swallow Study Scheduling Instructions: [employer] will call you to coordinate your care as prescribed by your provider. If you don't hear from a public relations representative within 2 business days, please call . Additional Information: does not need to be scheduled Comments Please be aware that coverage of these services is subject to the terms and limitations of your health insurance plan. Call member services at your health plan with any benefit or coverage questions. [employer] will call you to coordinate your care as prescribed by your provider. If you don't hear from a public relations representative within 2 business days, please call . Reason for Visit * Therapeutic Services (Routine: Next available opening) - Pending Review Specialty Diagnoses / Procedures Referred By Karine velasco Referred To Contact Diagnoses Dysphagia, oropharyngeal phase [facility] Felt Hat Flanging Operator Ent [address] [place] [address] 4[address] [place] [address] Referral ID Status Reason Start Date Expiration Date V isits Requested Visits Authorized [id number] Pending Review 07/16/2024 07/16/2025 1 1 Encounter Details Date Type Department Care Team (Latest Contact Info) Description 07/16/2024 3:30 PM CDT Therapy Visit [address] [phone] Maryann Wilhelm Dysphagia, oropharyngeal phase [...] Pt and report understanding. Maryann Wilhelm MS, CCC-QUALITY FACILITATOR Speech-Language Pathology [facility] Department of Otolaryngology/D&T - 4th floor Email: [email or web address] documented in this encounter Plan of Treatment Scheduled Referrals Name Type Priority Associated Diagnoses Orde r Schedule Speech Therapy Business Development Coordinator Referral Referral Routine: Next available opening Dysphagia, oropharyngeal phase Expected: 07/16/2024 (Approximate), Expires: 07/16/2025 documented as of this encounter Visit Diagnoses Diagnosis Dysphagia, oropharyngeal phase- Primary documented in this encounter Care Teams Hand Inspector Relationship Specialty Start Date End Date Sandy Matta MD [address] [place] [address] PCP - General Family Medicine 09/18/23 Tami Seaman, OD [address] [place], [place] 763435 Optometry 09/18/23 Tami Seaman, OD [address] [place], [place] 770365 Assigned Surgical Provider 10/14/23 Guy Yost MD [address] [place], [place] [address]455 Otolaryngology 01/22/24 documented as of this encounter
--- OUTSIDE RECORDS SUMMARY | 2024-08-09 11:38 | XMS_ITS | Encounter Summary ---
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, sequela Recurrent aspiration pneumonia (H) Sanyd Matta MD [address] [place] [address] Guy Yost MD [address] [place] [address] Referral ID Status Reason Start Date Expiration Date V isits Requested Visits Authorized [id number] Pending Review 01/23/2024 01/22/2025 1 1 Encounter Details Date Type Department Care Team (Late st Contact Info) Description 07/16/2024 2:45 PM CDT Office Visit [facility] [address] [phone] Sandy Matta MD [address] [place] [address] Elaina Cervantes MD [address] [place] [address] Dysphonia (Primary Dx); Oropharyngeal dysphagia; Trauma to [...] or concerns after your appointment, please call [phone]. Press option #1 for scheduling related needs. Press option #3 for Nurse advice. 2. Dr. Cervantes has recommended the following: - Z-pack and medrol dose pack for breathing difficulties 3. Plan is to return to clinic as needed How to Contact Us: Send a Brainient message to your provider. Our team will respond to you via Brainient. Occasionally, wewill need to call you to get further information. For urgent matters (Monday-Monday, 8:00 AM-3:30 PM), call the ENT Clinic: [phone] and speak with a call center sales team leader - they will route your call appropriately. If you'd like to speak directly with a nurse, please call [phone]. We do our best to check voicemail frequently throughout the day, and will work to call you back within 1-2 days. For urgent matters, please use the general clinic phone numbers listed above. Ivanna Cary [phone] [facility] - Otolaryngology documented in this encounter Progress Notes * Elaina Cervantes MD - 07/16/2024 3:30 PM CDT Images from the original note were not included. [facility] at the [facility] Otolaryngology Clinic Patient: Vinh Guillen : [...] in the past, recommend going back to [place] to compare exams and decide how they want to proceed Plan - return to [place] to compare exams - abx/steroids for any breathing worsening RETURN VISIT: pending cherokee discussion Referring Provider PCP: Sandy Matta Referring Physician: [place] [address] Reason for Consultation Dysphagia Dyspnea History HISTORY [...] sodium chloride (OCEAN) 0.65 % nasal spray, [place] 1-2 sprays in nostril, Disp: , Rfl: [...] Resource Strain: Low Risk (01/26/2024) Received from [employer] [facility], [employer] [facility] Financial Resource Strain Difficulty of Paying Living Expenses: 3 Difficulty of Paying Living Expenses: Not on file Food Insecurity: No Food Insecurity (03/12/2024) Received from [facility] Hunger Vital Sign Worried About Running Out of Food in the Last Year: Never true Ran Out of Food in the Last Year: Never true Transportation Needs: No Transportation Needs (03/12/2024) Received from [facility] PRAPARE - Transportation Lack of Transportation (Medical): No Lack of Transportation (Non-Medical): No Physical Activity: Inactive (03/12/2024) Received from [facility] Exercise Vital Sign Days of Exercise per Week: 0 days Minutes of Exercise per Session: 0 min Stress: Not on file Social Connections: Socially Integrated (01/26/2024) Received from [employer], [employer] Social Connections Frequency of Communication with Friends and Family: 0 Interpersonal Safety: Not At Risk (02/27/2024) Received from [facility] Humiliation, Afraid, Rape, and Kick questionnaire Fear of Current or Ex-Partner: No Emotionally Abused: No Physically Abused: No Sexually Abused: No Housing Stability: Low Risk (03/12/2024) Received from [facility] Housing Stability What is your living [...] limits and noncontributory. Procedures Flexible laryngoscopy (CPT 91939) Pre-procedure diagnosis: dysphonia Post-procedure diagnosis: same as [...] hesitate to contact me. Elaina Cervantes MD Pinsetter Mechanic Helper Laryngology [facility] Department of Otolaryngology - Head and Neck Surgery Clin[facility] [address] [place] [address] Appointment line: [phone] [email or web address] documented in this encounter Plan of Treatment Not on file documented as of this encounter Procedures Procedure Name Priority Date/Time Associated Diagnosis Comments [place] LARYNGOSCOPY FLEX FIBEROPTIC, DIAGNOSTIC Routine 07/16/2024 3:47 [...] vomitus documented in this encounter Care Teams Linotypist Relationship Specialty Start Date End Date Sandy Matta MD [address] [place] [address] PCP - General Family Medicine 09/18/23 Tami Seaman, OD [address] [place], [place] [phone] Optometry 09/18/23 Tami Seaman, OD [address] [place], [place] 137455 Assigned Surgical Provider 10/14/23 Guy Yost MD [address] [place] [address] Otolaryngology 01/22/24 documented as of this encounter
--- OUTSIDE RECORDS SUMMARY | 2024-08-09 11:39 | XMS_ITS ---
Author Organization [facility] Address [address] [place] [address] Care Team Providers Care Hyster Driver Name Role Phone Unavailable Unavailable Unavailable Surgery Details Not on file Complications Check Surgery Details section. Procedure Estimated Blood Loss Check Surgery Details section. Procedure Findings Check Surgery Details section. Procedure Specimens Taken Check Surgery Details section.
--- OUTSIDE RECORDS SUMMARY | 2024-08-09 11:39 | XMS_ITS | Encounter Summary ---
Author Organization [facility] Address [address] [place] [address] Care Team Providers Care Eyeglass Assembler Name Role Phone Elsewhere, Pcp Primary Care Provider Unavailabl e Reason for Visit * Auth/Cert (Routine) Specialty Diagnoses / Procedures Referred By Contwaldemar t Referred To Contact Diagnoses Sialorrhea Sialorrhea [K11.7] Procedures [place] CHEMODENERV PAROTID SUBMAN INJECTION BOTOX TO SALIVARY GLANDS 100 units total (25 units into each gland), ULTRASOUND GUIDANCE; PROCEED INDICATED Rafal Rankin M.D. [address] [place] [phone] Referral ID Status Reason Start Date Expiration Date Visits Re quested Visits Authorized [id number] 1 1 Encounter Details Date Type Department Care Team (Late st Contact Info) Description 07/23/2024 1:12 PM CDT Anesthesia Event RST ROMB MAIN OR [address] [place] [phone] Tayo Bradford D.O. [address] [place] [phone] Alan Mchugh M.D. [address] [place] [phone] Anesthesia Record Procedure Summary Procedure Name Responsible [...] = 0.6 oz pur e alcohol) [facility] Utilities Answer Date Recorded In the past 12 months has e [employer], gas, oil, or water [employer] threatened to shut off services in your [...] Procedure Summary Date: 07/23/24 Room / Location: [place] [address] / [facility] in [place], [place] Anesthesia Start: 1312 Anesthesia Stop: 1343 [...] Sialorrhea [K11.7] Pre-op diagnosis: Sialorrhea [K11.7]. Location: [address] 01 [facility] / [facility] in [place], [place] Providers: Rafal Rankin M.D. Pertinent components [...] patient / legal guardian, or through an skein yarn dyer helper; patient evaluated and approved for anesthesia / sedation The use of blood products not discussed Approval to Proceed: approved for anesthesia documented in this encounter Plan of Treatment Upcoming Encounters Date Type Department Care Team (Latest Contact Info) Description 08/15/2024 8:00 AM CDT Comprehensive Visit Department of Neurology in [place], [place] [address] [place] [phone] Cristiane Palacio, GRUPO, C.N.P., D.N.P. [address] [place] [phone] Kriss Wharton M.S., CCC-SHEETER WAXER OPERATOR [address] [place] [phone] 08/15/2024 9:00 AM CDT Appointment Department of Radiology, [facility], in [place], [place] [address] [place] [phone] Cristiane Palacio APRN, C.N.P., D.N.P. [address] [place] [phone] Kriss Wharton M.S., CCC-SHEETER WAXER OPERATOR [address] [place] [phone] 08/15/2024 9:45 AM CDT Clinical Support Department of Neurology in [place], [place] [address] [place] [phone] Cristiane Palacio APRN, C.N.PEdith, D.N.P. [address] [place] [phone] Kriss Wharton M.S., CCC-SHEETER WAXER OPERATOR [address] [place] [phone] 08/15/2024 1:00 PM CDT Office Visit Department of Otorhinolaryngology in [place], [place] [address] [place] [phone] Rafal Rankin M.D. [address] [place] [phone] 08/15/2024 2:30 PM CDT Ancillary Procedure Department of Ophthalmology in [place], [place] [address] [place] [phone] Kandace Shankar M.D. [address] [place] [phone] 08/15/2024 3:00 PM CDT Comprehensive Visit Department of Ophthalmology in [place], [place] [address] [place] [phone] Peña Carver M.D. [address] [place] [phone] 08/15/2024 4:15 PM CDT Office Visit Department of Ophthalmology in [place], [place] [address] [place] [phone] Kandace Shankar M.D. [address] [place] [phone] 08/20/2024 3:00 PM CDT Appointment Division of Gastroenterology in [place], [place] [address] [place] [phone] Cristiane Palacio APRN, C.N.P., D.N.P. [address] [place] [phone] 08/22/2024 4:20 PM CDT Telemedicine Division of Gastroenterology in [place], [place] [address] [place] [phone] Swapnil Jaramillo M.D. [address] [place] [phone] 10/22/2024 8:30 AM SURGICAL AIDE Clinical Communication Virtual Review in [place], [place] 200 [place] [phone] 10/25/2024 10:30 AM SURGICAL AIDE Comprehensive Visit Department of Neurology in [place], [place] [address] [place] [phone] Oziel Odonnell M.D. [address] [place] [phone] documented as of this encounter Visit Diagnoses [...] mL/hr documented in this encounter Care Teams Eyeglass Assembler Relationship Specialty Start Date End Date Elsewhere, Pcp PCP - General Internal Medicine 02/26/24 documented as of this encounter
--- OUTSIDE RECORDS SUMMARY | 2024-08-09 11:39 | XMS_ITS | Clinical Summary ---
Author Organization [facility] Address [address], [place] [address] Care Team Providers Care Junior Programmer Name Role Phone Found, No Pcp MD Primary Care Provider Unavailab le Source Comments You are receiving this document as you are listed as the primary care provider,follow-up provider, or the patient has been referred to you for consultation.This is in compliance with the Medicare andOhio[facility] Southeastern Medical Centercaid EHR Incentive Program,which states Providers who transition their patient to another setting of careor provider of care or refers their patient to another provider of care shouldprovide summary care record for each transition of care or referral. 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 10/25/2017 Other specific arthropathies , not elsewhere classified, multiple sites 05/25/2011 Overview (07/05/2017): Other specified arthropathy, multiple sites Immunizations Name Administration Dates Next Due Flu Vac (3+ yrs) 08/19/2013, 3,08/27/2010, 009,09/05/2008,09/06/2007,09/13/2006,07/2005,09/09/2003 Flu Vac Preserv Free (3+yrs) 08/27/2008 Influenza ([place] Only) (Flul aval Quad 0.5, 3+ yrs) 08/22/2016 Influenza S2Q4-66 2009 Influenza IIV4 (Quadrivalent ) 0.5mL (01477) 08/24/2018,09/08/2017,09/11/2015, 014 Td 11/13/1996 Tdap 05/04/2012 Zoster [...] Comments Blood Pressure 128/77 10/28/2020 1:49 PM PAIRER Pulse 69 10/28/2020 1:49 PM PAIRER Temperature 36.4 ??C (97.5 ??F) 10/28/2020 1 :49 PM PAIRER Respiratory Rate 18 11/11/2015 3:07 PM PAIRER Oxygen Saturation - - Inhaled Oxygen Concentration - - Weight 85.6 kg (188 lb 12.8 oz) 019 4:32 PM PAIRER Height 182.9 cm (6') 03/26/2009 2:31 PM [...] age to complete this topic Care Teams Junior Programmer Relationship Specialty Start Date End Date Found, No Pcp, [address] [place] [address] PCP - General 10/18/18
--- OUTSIDE RECORDS SUMMARY | 2024-08-09 11:39 | XMS_ITS | Encounter Summary ---
Author Organization [facility] Address [address] [place] [address] Care Team Providers Care Podiatry Professor Name Role Phone Elsewhere, Pcp Primary Care Provider Unavailabl e Reason for Visit * Auth/Cert (Routine) Specialty Diagnoses / Procedures Referred By Karine t Referred To Contact Diagnoses Sialorrhea Sialorrhea [K11.7] Procedures [place] CHEMODENERV PAROTID SUBMAN INJECTION BOTOX TO SALIVARY GLANDS 100 units total (25 units into each gland), ULTRASOUND GUIDANCE; PROCEED INDICATED Rafal Rankin M.D. 200 [place] [address] Referral ID Status Reason Start Date Expiration Date Visits Re quested Visits Authorized [id number] 1 1 Encounter Details Date Type Department Care Team (Late st Contact Info) Description 07/23/2024 1:46 PM CDT - 07/23/2024 2:44 PM CDT Surgery RST ROMB MAIN OR [address] [place] [address] Rafal Rankin M.D. [address] [place] [phone] INJECTION BOTOX TO SUBMANDIBULAR GLANDS 50 units total, 25 units into each gland, ULTRASOUND GUIDANCE. Social History Tobacco Use Types Packs/Day Years Used Date Smoking Tobacco: Former Cigarettes Q uit: 1985 Smokeless Tobacco: Never Alcohol Use Standard Drinks/Week Comments Not Currently 0 (1 standard drink = 0.6 oz pur e alcohol) [facility] Utilities Answer Date Recorded In the past 12 months has e [employer], gas, oil, or water [employer] threatened to shut off services in your [...] equipment (DME). [employer] [place] feed bag Ref# [id number]. Change bag every 24 hours. 03/27/2024 UNABLE [...] CDT Comprehensive Visit Department of Neurology in [place], [place] [address] [place] [phone] Cristiane Palacio, GRUPO, C.N.P., D.N.P. [address] [place] [phone] Kriss Wharton M.S., [facility] [address] [place] [phone] 08/15/2024 9:00 AM CDT Appointment Department of Radiology, [facility], in [place], [place] [address] [place] [phone] Cristiane Palacio, GRUPO, C.N.P., D.N.P. [address] [place] [phone] Kriss Wharton M.S., [facility] [address] [place] [phone] 08/15/2024 9:45 AM CDT Clinical Support Department of Neurology in [place], [place] [address] [place] [phone] Cristiane Palacio APRN, C.N.P., D.N.P. [address] [place] [phone] Kriss Wharton M.S., [facility] [address] [place] [phone] 08/15/2024 1:00 PM CDT Office Visit Department of Otorhinolaryngology in [place], [place] [address] [place] [phone] Rafal Rankin M.D. [address] [place] [phone] 08/15/2024 2:30 PM CDT Ancillary Procedure Department of Ophthalmology in [place], [place] [address] [place] [phone] Kandace Shankar M.D. [address] [place] [phone] 08/15/2024 3:00 PM CDT Comprehensive Visit Department of Ophthalmology in [place], [place] [address] [place] [phone] Peña Carver M.D. [address] [place] [phone] 08/15/2024 4:15 PM CDT Office Visit Department of Ophthalmology in [place], [place] [address] [place] [phone] Kandace Shankar M.D. [address] [place] [phone] 08/20/2024 3:00 PM CDT Appointment Division of Gastroenterology in [place], [place] [address] [place] [phone] Cristiane Palacio, GRUPO, C.N.P., D.N.P. [address] [place] [phone] 08/22/2024 4:20 PM CDT Telemedicine Division of Gastroenterology in [address] [phone] Swapnil Jaramillo M.D. [address] [place] [phone] 10/22/2024 8:30 AM LIVESTOCK INSPECTOR Clinical Communication Virtual Review in [place], [place] 200 [place] [phone] 10/25/2024 10:30 AM LIVESTOCK INSPECTOR Comprehensive Visit Department of Neurology in [place], [place] [address] [place] [phone] Oziel Odonnell M.D. [address] [place] [phone] documented as of this encounter Procedures Procedure Name Priority Date/Time Associated Diagnosis Comments INJECTION BOTOX 07/23/2024 12:56 PM CDT Sialorrhea Case Notes APPIAN BPM DEVELOPER at 11:23 documented in this encounter Visit [...] injection documented in this encounter Care Teams Podiatry Professor Relationship Specialty Start Date End Date Elsewhere, Pcp PCP - General Internal Medicine 02/26/24 documented as of this encounter
--- OUTSIDE RECORDS SUMMARY | 2024-08-09 11:39 | XMS_ITS | Encounter Summary ---
Author Organization [facility] Address [address] [place] [address] Care Team Providers Care Cereal Chemist Name Role Phone Elsewhere, Pcp Primary Care Provider Unavailabl e Encounter Details Date Type Department Care Team (Latest Contact Info) Description 07/24/2024 Clinical Communication Division of Endocrinology in [place], [place] [address] [place] [address] Cristiane Palacio, GRUPO, C.N.P., D.N.P. [address] [place] [phone] Social History Tobacco Use Types Packs/Day Years Used Date Smoking Tobacco: Former Cigarettes Q uit: 1985 Smokeless Tobacco: Never Alcohol Use Standard Drinks/Week Comments Not Currently 0 (1 standard drink = 0.6 oz pur e alcohol) [facility] Utilities Answer Date Recorded In the past 12 months has e [employer], gas, oil, or water company threatened to [...] your living situation today? I have a [facility] place to live 03/12/2024 Sex and [...] CDT Comprehensive Visit Department of Neurology in [address] [phone] Cristiane Palacio APRN, C.N.P., D.N.P. [address] [place] [phone] Kriss Wharton, M.S., CCC-LOSS CONTROL ENGINEER [address] [place] [phone] 08/15/2024 9:00 AM CDT Appointment Department of Radiology, [facility], in [address] [phone] Cristiane Palacio APRN, C.N.P., D.N.P. [address] [place] [phone] Kriss Wharton, M.S., CCC-LOSS CONTROL ENGINEER [address] [place] [phone] 08/15/2024 9:45 AM CDT Clinical Support Department of Neurology in [address] [phone] Cristiane Palacio APRN, C.N.P., D.N.P. [address] [place] [phone] Kriss Wharton, M.S., CCC-LOSS CONTROL ENGINEER [address] [place] [address] [phone] 08/15/2024 1:00 PM CDT Office Visit Department of Otorhinolaryngology in [address] [place] [address] Rafal Rankin M.D. [address] [place] [phone] 08/15/2024 2:30 PM CDT Ancillary Procedure Department of Ophthalmology in [place], [place] [address] [place] [phone] Kandace Shankar M.D. [address] [place] [phone] 08/15/2024 3:00 PM CDT Comprehensive Visit Department of Ophthalmology in [place], [place] [address] [place] [phone] Peña Carver M.D. [address] [place] [address] [phone] 08/15/2024 4:15 PM CDT Office Visit Department of Ophthalmology in [place], [place] [address] [place] [phone] Kandace Shankar M.D. [address] [place] [phone] 08/20/2024 3:00 PM CDT Appointment Division of Gastroenterology in [place], [place] [address] [place] [phone] Cristiane Palacio, GRUPO, C.N.P., D.N.P. [address] [place] [phone] 08/22/2024 4:20 PM CDT Telemedicine Division of Gastroenterology in [place], [place] [address] [place] [phone] Swapnil Jaramillo M.D. [address] [place] [phone] 10/22/2024 8:30 AM POLYMER CHEMIST Clinical Communication Virtual Review in [place], [place] [address] [place] [phone] 10/25/2024 10:30 AM POLYMER CHEMIST Comprehensive Visit Department of Neurology in [place], [place] [address] [place] [phone] Oziel Odonnell M.D. [address] [place] [phone] documented as of this encounter Visit Diagnoses Not on filedocumented in this encounter Care Teams Cereal Chemist Relationship Specialty Start Date End Date Elsewhere, Pcp PCP - General Internal Medicine 02/26/24 documented as of this encounter
--- OUTSIDE RECORDS SUMMARY | 2024-08-09 11:39 | XMS_ITS | Encounter Summary ---
Author Organization [facility] Address [address] [place] [address] Care Team Providers Care Metalsmith Apprentice Name Role Phone Elsewhere, Pcp Primary Care Provider Unavailabl e Encounter Details Date Type Department Care Team (Latest Contact Info) Description 08/06/2024 Clinical Communication Department of Otorhinolaryngology in [place], [place] [address] [place] [address] Rafal Rankin M.D. [address] [place] [address] Social History Tobacco Use Types Packs/Day Years Used Date Smoking Tobacco: Former Cigarettes Q uit: 1985 Smokeless Tobacco: Never Alcohol Use Standard Drinks/Week Comments Not Currently 0 (1 standard drink = 0.6 oz pur e alcohol) [facility] Utilities Answer Date Recorded In [...] your living situation today? I have a [facility] place to live 03/12/2024 Sex and [...] Comprehensive Visit Department of Neurology in [address] [phone] Cristiane Palacio APRN, C.N.P., D.N.P. [address] [place] [phone] Kriss Wharton M.S., CCC-BURNER HAND [address] [place] [phone] 08/15/2024 9:00 AM CDT Appointment Department of Radiology, [facility], in [place], [place] [address] [place] [phone] Cristiane Palacio APRN, C.N.P., D.N.P. [address] [place] [phone] Kriss Wharton M.S., CCC-BURNER HAND [address] [place] [phone] 08/15/2024 9:45 AM CDT Clinical Support Department of Neurology in [address] [phone] Cristiane Palacio, GRUPO, C.N.P., D.N.P. [address] [place] [phone] Kriss Wharton M.S., [facility] [address] [place] [phone] 08/15/2024 1:00 PM CDT Office Visit Department of Otorhinolaryngology in [place], [place] [address] [place] [phone] Rafal Rankin M.D. [address] [place] [phone] 08/15/2024 2:30 PM CDT Ancillary Procedure Department of Ophthalmology in [place], [place] [address] [place] [phone] Kandace Shankar M.D. [address] [place] [phone] 08/15/2024 3:00 PM CDT Comprehensive Visit Department of Ophthalmology in [place], [place] [address] [place] [phone] Peña Carver M.D. [address] [place] [phone] 08/15/2024 4:15 PM CDT Office Visit Department of Ophthalmology in [place], [place] [address] [place] [phone] Kandace Shankar M.D. [address] [place] [phone] 08/20/2024 3:00 PM CDT Appointment Division of Gastroenterology in [place], [place] [address] [place] [phone] Cristiane Palacio APRN C.N.P., D.N.P. [address] [place] [phone] 08/22/2024 4:20 PM CDT Telemedicine Division of Gastroenterology in [place], [place] [address] [place] [phone] Swapnil Jaramillo M.D. [address] [place] [address] [phone] 10/22/2024 8:30 AM FUR STYLIST Clinical Communication Virtual Review in [place], [place] 200 [place] [phone] 10/25/2024 10:30 AM FUR STYLIST Comprehensive Visit Department of Neurology in [place], [place] [address] [place] [phone] Oziel Odonnell M.D. [address] [place] [address] [phone] documented as of this encounter Visit Diagnoses Not on filedocumented in this encounter Care Teams Metalsmith Apprentice Relationship Specialty Start Date End Date Elsewhere, Pcp PCP - General Internal Medicine 02/26/24 documented as of this encounter
--- OUTSIDE RECORDS SUMMARY | 2024-08-09 11:39 | XMS_ITS | Encounter Summary ---
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 [address] [place] [address] [facility] Referral ID Status Reason Start Date Expiration Date V isits Requested Visits Authorized [id number] Authorized 08/06/2024 02/05/2026 1 1 Encounter Details Date Type Department Care Team (Latest Contact Info) Description 08/06/2024 Orders Only Department of Otorhinolaryngology in [place], [place] [address] [place] [phone] Rafal Rankin M.D. 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 I have a [facility] place to live 03/12/2024 Sex and [...] CDT Comprehensive Visit Department of Neurology in [place], [place] [address] [place] [phone] Cristiane Palacio APRN, C.N.P., D.N.P. [address] [place] [phone] Kriss Wharton M.S., [facility]ATE ETHICS OFFICER [address] [place] [address] [phone] 08/15/2024 9:00 AM CDT Appointment Department of Radiology, [facility], in [place], [place] [address] [place] [phone] Cristiane Palacio APRN, C.N.P., D.N.P. [address] [place] [phone] Kriss Wharton M.S., [facility] ETHICS OFFICER [address] [place] [phone] 08/15/2024 9:45 AM CDT Clinical Support Department of Neurology in [place], [place] [address] [place] [phone] Cristiane Palacio APRN, C.N.P., D.N.P. [address] [place] [phone] Kriss Wharton M.S., [facility] ETHICS OFFICER [address] [place] [phone] 08/15/2024 1:00 PM CDT Office Visit Department of Otorhinolaryngology in [place], [place] [address] [place] [phone] Rafal Rankin M.D. [address] [place] [phone] 08/15/2024 2:30 PM CDT Ancillary Procedure Department of Ophthalmology in [place], [place] [address] [place] [phone] Kandace Shankar M.D. [address] [place] [phone] 08/15/2024 3:00 PM CDT Comprehensive Visit Department of Ophthalmology in [place], [place] [address] [place] [phone] Peña Carver M.D. [address] [place] [phone] 08/15/2024 4:15 PM CDT Office Visit Department of Ophthalmology in [place], [place] [address] [place] [phone] Kandace Shankar M.D. [address] [place] [phone] 08/20/2024 3:00 PM CDT Appointment Division of Gastroenterology in [place], [place] [address] [place] [phone] Cristiane Palacio, GRUPO, C.N.P., D.N.P. [address] [place] [phone] 08/22/2024 4:20 PM CDT Telemedicine Division of Gastroenterology in [place], [place] [address] [place] [address] [phone] Swapnil Jaramillo M.D. [address] [place] [phone] 10/22/2024 8:30 AM FINAL ASSEMBLY AND PACKING SUPERVISOR Clinical Communication Virtual Review in [place], [place] 200 [place] [address] 10/25/2024 10:30 AM FINAL ASSEMBLY AND PACKING SUPERVISOR Comprehensive Visit Department of Neurology in [place], [place] [address] [place] [phone] Oziel Odonnell M.D. 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
--- OUTSIDE RECORDS SUMMARY | 2024-08-09 11:39 | XMS_ITS | Encounter Summary ---
Author Organization [facility] Address [address] [place] [address] Care Team Providers Care Senior Contract Specialist Name Role Phone Elsewhere, Pcp Primary Care Provider Unavailabl e Reason for Referral * Outpatient (Routine) - Closed Specialty Diagnoses / Procedures Referred By Karine velasco Referred To Contact Diagnoses Sialorrhea Procedures US Guidance Intraoperative Rafal Rankin M.D. [address] [place] [phone] [facility] Referral ID Status Reason Start Date Expiration Date Visits Re quested Visits Authorized [id number] Closed 06/19/2024 06/19/2025 1 1 Reason for Visit * Auth/Cert (Routine) Specialty Diagnoses / Procedures Referred By Karine velasco Referred To Contact Diagnoses Sialorrhea Sialorrhea [K11.7] Procedures ME CHEMODENERV PAROTID SUBMAN INJECTION BOTOX TO SALIVARY GLANDS 100 units total (25 units into each gland), ULTRASOUND GUIDANCE; PROCEED INDICATED Rafal Rankin M.D. [address] [place] [phone] Referral ID Status Reason Start Date Expiration Date Visits Re quested Visits Authorized [id number] 1 1 Encounter Details Date Type Department Care Team (Latest Contact Info) Description 07/23/2024 10:00 AM CDT - 07/23/2024 11:18 AM CDT Hospital Encounter Department of Radiology, [facility], in [place], [place] [address] [place] [address] Rafal Rankin M.D. [address] [place] [phone] Sialorrhea Discharge Disposition: Home or Self Care Social History Tobacco Use Types Packs/Day Years Used Date Smoking Tobacco: Former Cigarettes Q uit: 1984 Smokeless Tobacco: Never Alcohol Use Standard Drinks/Week Comments Not Currently 0 (1 standard drink = 0.6 oz pur e alcohol) [facility] Utilities Answer Date Recorded In the past [address] [facility] [place], gas, oil, or water [employer] threatened to shut off services in your [...] your living situation today? I have a [facility] place to live 03/12/2024 Sex [...] equipment (DME). Anival Kelley feed bag Ref# [id number]. Change bag every 24 hours. 03/27/2024 UNABLE TO FIND 1 each as needed (5 times daily for flushes as needed.). durable medical equipment (DME) 12ml enteral syringe NeoMed with ENFIT CONNECTOR. 03/19/2024 documented as of this encounter Plan of Treatment Upcoming Encounters Date Type Department Care Team (Latest Contact Info) Description 08/15/2024 8:00 AM CDT Comprehensive Visit Department of Neurology in [address] [phone] Cristiane Palacio APRN, C.N.P., D.N.P. [address] [place] [address] [phone] Kriss Wharton M.SEdith, [facility]-LEAD DATABASE DEVELOPER [address] [place] [phone] 08/15/2024 9:00 AM CDT Appointment Department of Radiology, [facility], in [place], [place] [address] [place] [phone] Cristiane Palacio APRN, C.N.P., D.N.P. [address] [place] [address] [phone] Kriss Wharton M.S., [facility]-LEAD DATABASE DEVELOPER [address] [place] [address] [phone] 08/15/2024 9:45 AM CDT Clinical Support Department of Neurology in [address] [phone] Cristiane Palacio APRN, C.N.P., D.N.P. [address] [place] [phone] Kriss Wharton M.S., CCC-LEAD DATABASE DEVELOPER [address] [place] [address] [phone] 08/15/2024 1:00 PM CDT Office Visit Department of Otorhinolaryngology in [place], [place] [address] [place] [phone] Rafal Rankin M.D. [address] [place] [phone] 08/15/2024 2:30 PM CDT Ancillary Procedure Department of Ophthalmology in [place], [place] [address] [place] [address] [phone] Kandace Shankar M.D. [address] [place] [phone] 08/15/2024 3:00 PM CDT Comprehensive Visit Department of Ophthalmology in [place], [place] [address] [place] [phone] Peña Carver M.D. [address] [place] [address] [phone] 08/15/2024 4:15 PM CDT Office Visit Department of Ophthalmology in [place], [place] [address] [place] [phone] Kandace Shankar M.D. [address] [place] [phone] 08/20/2024 3:00 PM CDT Appointment Division of Gastroenterology in [place], [place] [address] [place] [address] [phone] Cristiane Palacio, GRUPO, C.N.P., D.N.P. [address] [place] [address] [phone] 08/22/2024 4:20 PM CDT Telemedicine Division of Gastroenterology in [place], [place] [address] [place] [phone] Swapnil Jaramillo M.D. [address] [place] [phone] 10/22/2024 8:30 AM CERTIFIED NURSE Clinical Communication Virtual Review in [place], [place] 200 [place] [phone] 10/25/2024 10:30 AM CERTIFIED NURSE Comprehensive Visit Department of Neurology in [place], [place] [address] [place] [phone] Oziel Odonnell M.D. [address] [place] [address] [phone] documented as of this encounter Procedures Procedure [...] Sialorrhea documented in this encounter Care Teams Senior Contract Specialist Relationship Specialty Start Date End Date Elsewhere, Pcp PCP - General Internal Medicine 02/26/24 documented as of this encounter
--- OUTSIDE RECORDS SUMMARY | 2024-08-09 11:39 | XMS_ITS | Clinical Summary ---
Author Organization [facility] Address [address] [place] [address] Care Team Providers Care Locker Operator Name Role Phone Elsewhere, Pcp Primary Care Provider Unavailabl e Source Comments Patient records contain information from all sites at [facility]. For routine questions regarding patient records, call [phone] during business hours, M-F 8:00 AM - 5:00 PM Central Time. Record requests for emergency care only can be directed to [phone] at any time.[facility] Allergies Active Allergy Reactions Criticality Noted Date [...] 1 each daily. durable medical equipment (DME). [employer] feed bag Ref# [id number]. Change bag every 24 hours. 4 Active [...] 08/06/2024 Clinical Communication Department of Otorhinolaryngology in [place], [place] [address] [place] [address] Rafal Rankin M.D. 08/06/2024 Orders Only Department of Otorhinolaryngology in [place], [place] [address] [place] [address] Rafal Rankin M.D. 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 07/23/2024 1:46 PM CDT - 07/23/2024 2:44 PM CDT Surgery [facility] [address] [place] [phone] Rafal Rankin M.D. INJECTION BOTOX TO SUBMANDIBULAR GLANDS 50 units total, 25 units into each gland, ULTRASOUND GUIDANCE. 07/23/2024 1:12 PM CDT Anesthesia Event [facility] [address] [place] [phone] Tayo Bradford D.O. Higgins, Timon J, M.D. 07/23/2024 11:19 AM CDT - 07/23/2024 2:16 PM CDT [place] [address] [place] [phone] Rafal Rankin M.D. Discharge Disposition: Home or Self Care 07/23/2024 10:00 AM CDT - 07/23/2024 11:18 AM CDT Hospital Encounter Department of Radiology, [facility] in [address] [phone] Rafal Rankin M.D. Sialorrhea Discharge Disposition: Home or Self Care 07/18/2024 1:00 PM CDT Office Visit Department of Otorhinolaryngology in [address] [phone] Rafal Rankin M.D. 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 06/25/2024 9:00 AM CDT Telemedicine Department of Otorhinolaryngology in [place], [place] [address] [place] [phone] Rafal Rankin M.D. 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 McKay, Elisa C, APRN, C.N.P., D.N.P. Dysphagia; Stenosis Laryngeal; Pneumonitis Due To Inhalation Of Food And Vomit (HCC) 06/18/2024 10:00 AM CDT Clinical Support Division of Endocrinology in [place], [place] [address] [place] [phone] Stan Hernandez M.D. Neldner, Indra K, R.N. Dysphagia; Stenosis Laryngeal; Pneumonitis Due To Inhalation Of Food And Vomit (HCC) 06/18/2024 9:00 AM CDT Clinical Support Department of Nutrition and Diabetes Education in [address] [phone] tSan Hernandez M.D. Johnson, Danelle A, M.S., RDN, LD Dietary Counseling And Surveillance For Enteral Nutrition (Primary Dx); Dysphagia; Stenosis Laryngeal; Pneumonitis Due To Inhalation Of Food And Vomit (HCC); Gastrojejunostomy Percutaneous Status Post 06/18/2024 Documentation Division of Endocrinology in [place], [place] [address] [place] [phone] Imelda Escamilla RTomasa Scheduling 06/18/2024 Orders Only Division of Endocrinology in [place], [place] [address] [place] [address] [phone] Cristiane Palacio, GRUPO, C.N.P., D.N.P. Dysphagia (Primary Dx) 06/18/2024 Orders Only Division of Endocrinology in [place], [place] [address] [place] [address] [phone] Ankit Medina RTomasa Dietary Counseling And Surveillance For Enteral Nutrition (Primary Dx) 06/18/2024 Orders Only Department of Otorhinolaryngology in [place], [place] [address] [place] [phone] Luz Muir R.N. Sialorrhea (Primary Dx) 06/18/2024 Clinical Communication Department of Otorhinolaryngology in [place], [place] [address] [place] [phone] Rafal Rankin M.D. 06/17/2024 Orders Only Department of Otorhinolaryngology in [place], [place] [address] [place] [phone] Rafal Rankin M.D. 05/20/2024 8:00 AM CDT Comprehensive Visit Department of Ophthalmology in [place], [place] [address] [place] [phone] Kandace Shankar M.D. 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 Diplopia (Primary Dx) 05/17/2024 5:20 PM CDT Ancillary Procedure Department of Ophthalmology 05/17/2024 4:30 PM CDT Ancillary Procedure Department of Ophthalmology in [place], [place] [address] [place] [phone] Kandace Shankar M.D. 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 Scheduling from Last 3 Months Social History Tobacco Use Types Packs/Day Years Used Date Smoking Tobacco: Former Cigarettes Q uit: 1985 Smokeless Tobacco: Never Tobacco Cessation:Counseling Given: Not Answered Alcohol Use Standard Drinks/Week Comments Not Currently 0 (1 standard drink = 0.6 oz pur e alcohol) [facility] Utilities Answer Date Recorded In the past 12 months has e [employer], gas, oil, or water [employer] threatened to shut off services in your [...] your living situation today? I have a [facility] place to live 03/12/2024 Sex [...] CDT Comprehensive Visit Department of Neurology in [place], [place] [address] [place] [phone] Cristiane Palacio APRN, C.N.P., D.N.P. [address] [place], [place] [phone] Kriss Wharton M.S., CCC-DIRECTOR OF CLINICAL APPLICATIONS [address] [place] [phone] 08/15/2024 9:00 AM CDT Appointment Department of Radiology, [facility], in [place], [place] [address] [place] [phone] Cristiane Palacio APRN, C.N.P., D.N.P. [address] [place] [phone] Kriss Wharton M.S., CCC-DIRECTOR OF CLINICAL APPLICATIONS [address] [place] [phone] 08/15/2024 9:45 AM CDT Clinical Support Department of Neurology in [address] [phone] Cristiane Palacio, GRUPO C.N.P., D.N.P. [address] [place] [phone] Kriss Wharton M.S., CCC-DIRECTOR OF CLINICAL APPLICATIONS [address] [place] [phone] 08/15/2024 1:00 PM CDT Office Visit Department of Otorhinolaryngology in [address] [phone] Rafal Rankin M.D. [address] [place] [phone] 08/15/2024 2:30 PM CDT Ancillary Procedure Department of Ophthalmology in [address] [phone] Kandace Shankar M.D. [address] [place] [phone] 08/15/2024 3:00 PM CDT Comprehensive Visit Department of Ophthalmology in [address] [phone] Peña Carver M.D. [address] [place] [phone] 08/15/2024 4:15 PM CDT Office Visit Department of Ophthalmology in [address] [phone] Kandace Shankar M.D. [address] [place] [phone] 08/20/2024 3:00 PM CDT Appointment Division of Gastroenterology in [place], [place] [address] [place] [phone] Cristiane Palacio, GRUPO, C.N.P., D.N.P. [address] [place] [phone] 08/22/2024 4:20 PM CDT Telemedicine Division of Gastroenterology in [place], [place] [address] [place] [phone] Swapnil Jaramillo M.D. [address] [place] [address] [phone] 10/22/2024 8:30 AM MEDICAL OR SURGICAL INSTRUMENT MAKER Clinical Communication Virtual Review in [place], [place] 200 [place] [phone] 10/25/2024 10:30 AM MEDICAL OR SURGICAL INSTRUMENT MAKER Comprehensive Visit Department of Neurology in [place], [place] [address] [place] [phone] Oziel Odonnell M.D. [address] [place] [phone] Health Maintenance Due Date Last Done Comments CT Colonography 1955 Cologuard 1955 FIT 1955 Hepatitis C Screening 1955 Zoster Vaccines (3 of 3) 10/19/20182 018, 08/24/2018, 06/15/2018, Additional history exists Depression Screening (Annual PHQ-2) 11/13/2023 COVID-19 Vaccine (2023- 5 season) 2024 10/24/2022, 02/28/2022, 10/11/2021, Additional history exists Fasting Glucose for Diabetes [...] 07/23/2024 12:56 PM CDT Sialorrhea Case Notes UPPER LEATHER SORTER at 11:23 OTORHINOLARYNGOLOGY IMAGE EXAM Routine 07/18/2024 [...] inserted into each submandibular gland by Dr. rFancis and 25 units of Botox was injected [...] and follow up as entered by the commercial front load driver. Notes See note. Kandace Shankar M.D. OPHTH TOMOGRAPHY Performing Organization Address [facility] de Phone Number OPHTHALMOLGY NON-IMAGING ORDERS [...] Shankar M.D. OPHTH TOMOGRAPHY Performing Organization Address [facility] de Phone Number OPHTHALMOLOGY IMAGING EXAM [...] RAD IMAGI NG PROCEDURES Performing Organization Address [facility] de Phone Number IIMS NA * [...] OPHTH VISUAL FIEL D Performing Organization Address City/[facility]/ZIP Co de Phone Number OPHTHALMOLOGY IMAGING EXAM * Clostridioides (Clostridium) Difficile Toxin, Molecular Detection, PCR, Feces (05/09/2024 8:50 AM CDT) C. difficile Toxin, F Negative Negative 05/09/2024 12:00 PM CDT DTL Stool (Stool) 05/09/2024 8:5 0 AM CDT 05/09/2024 9:40 AM CDT Stan Izaguirre M.D. LAB MICROBIOLOG Y - GENERAL ORDERABLES Performing Organization Address City/[facility] Co de Phone Number [facility] [place] [address], [facility] [place] [address] * (ABNORMAL) Basic Metabolic Panel (02/28/2024 12:21 [...] Pham APRN C.N.P., M.S.N. LAB BLOOD ADD-ON [facility] [place] [address] [place] [address], [facility] [address] [place] [address] from Last 3 Months or Most Recently Relevant to Health Maintenance Advance Directives For more information, please contact: [phone] Documents on File Type Date Recorded Patient Tool/Die Maker Expl anation Advance Directives 02/28/2024 2:04 PM Malika Guillen HCPOA/ADVOCATE/AGENT/R EPRESENTATIVE/SURROGAT E * Full Code (Latest Code Status on File) Date Activated Date Inactivated Comments 02/27/2024 12:46 AM 02/28/2024 4:31 PM Question Answer Comments Full Code: Discussed Healthcare Agents on File Name Relationship Healthcare Agent Latasha ivonne Dony Guillen Spouse Health Care Agent Malika Bryant Sister First Alternate Health Care Agent Care Teams Locker Operator Relationship Specialty Start Date End Date Elsewhere, Pcp PCP - General Internal Medicine 02/26/24
--- OUTSIDE RECORDS SUMMARY | 2024-08-09 11:39 | XMS_ITS | Referral Summary ---
Author Organization [facility] Address [address] [place] [address] Care Team Providers Care Geospatial Applications Developer Name Role Phone Elsewhere, Pcp Primary Care Provider Unavailabl e Source Comments Patient records contain information from all sites at [facility]. For routine questions regarding patient records, call [phone] during business hours, M-F 8:00 AM - 5:00 PM Central Time. Record requests for emergency care only can be directed to [phone] at any time.[facility] Encounters Date Type Department Care Team Description 08/06/2024 Clinical Communication Department of Otorhinolaryngology in [place], [place] [address] [place] [address] Rafal Rankin M.D. 08/06/2024 Orders Only Department of Otorhinolaryngology in [place], [place] [address] [place] [address] Rafal Rankin M.D. 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 07/23/2024 1:12 PM CDT Anesthesia Event [facility] OR [facility] [address] [place] [phone] Tayo Bradford D.O. Higgins, Timon J, M.D. 07/23/2024 10:00 AM CDT - 07/23/2024 11:18 AM CDT Hospital Encounter Department of Radiology, [facility], in [address] [address] Rafal Rankin M.D. Sialorrhea Discharge Disposition: Home or Self Care 07/23/2024 1:46 PM CDT - 07/23/2024 2:44 PM CDT [facility] [address] [place] [phone] Rafal Rankin M.D. INJECTION BOTOX TO SUBMANDIBULAR GLANDS 50 units total, 25 units into each gland, ULTRASOUND GUIDANCE. 07/23/2024 11:19 AM CDT - 07/23/2024 2:16 PM CDT Hospital Encounter [facility] OR [address] [place] [phone] Rafal Rankin M.D. Discharge Disposition: Home or Self Care 07/18/2024 1:20 AM CDT Ancillary Procedure Department of Otorhinolaryngology 07/18/2024 1:00 PM CDT Office Visit Department of Otorhinolaryngology in [place], [place] [address] [place] [phone] Rafal Rankin M.D. 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 06/25/2024 9:00 AM CDT Telemedicine Department of Otorhinolaryngology in [place], [place] [address] [place] [phone] Rafal Rankin M.D. 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 Scheduling 06/18/2024 Orders Only Division of Endocrinology in [place], [place] [address] [place] [phone] Cristiane Palacio APRN, C.N.P., D.N.P. Dysphagia (Primary Dx) 06/18/2024 Orders Only Division of Endocrinology in [place], [place] [address] [place] [phone] Ankit Medina, R.NEdith Dietary Counseling And Surveillance For Enteral Nutrition (Primary Dx) 06/18/2024 Orders Only Department of Otorhinolaryngology in [place], [place] [address] [place] [phone] Luz Muir R.N. Sialorrhea (Primary Dx) 06/18/2024 Clinical Communication Department of Otorhinolaryngology in [place], [place] [address] [place] [phone] Rafal Rankin M.D. 06/18/2024 1:00 PM CDT Telemedicine Division of Endocrinology in [address] [phone] Stan Hernandez M.D. McKay, Elisa C, APRN, C.N.PEdith, D.N.P. Dysphagia; Stenosis Laryngeal; Pneumonitis Due To Inhalation Of Food And Vomit (HCC) 06/18/2024 10:00 AM CDT Clinical Support Division of Endocrinology in [place], [place] [address] [place] [phone] Stan Hernandez M.D. Neldner, Indra K, R.N. Dysphagia; Stenosis Laryngeal; Pneumonitis Due To Inhalation Of Food And Vomit (HCC) 06/18/2024 9:00 AM CDT Clinical Support Department of Nutrition and Diabetes Education in [place], [place] [address] [place] [phone] Stan Hernandez M.D. Victoria Muir M.S., RDN, LD Dietary Counseling And Surveillance For Enteral Nutrition (Primary Dx); Dysphagia; Stenosis Laryngeal; Pneumonitis Due To Inhalation Of Food And Vomit (HCC); Gastrojejunostomy Percutaneous Status Post 06/17/2024 Orders Only Department of Otorhinolaryngology in [place], [place] [address] [place] [phone] Rafal Rankin M.D. 05/20/2024 Orders Only Department of Ophthalmology in [address] [phone] Kandace Shankar M.D. Diplopia (Primary Dx) 05/20/2024 8:00 AM CDT Comprehensive Visit Department of Ophthalmology in [place], [place] [address] [place] [phone] Kandace Shankar M.D. 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 Traumatic Subarachnoid Hemorrhage Without Loss Of Consciousness Sequela (HCC) 05/17/2024 3:00 PM CDT Ancillary Procedure Department of Ophthalmology in [place], [place] [address] [place] [phone] Kandace Shankar M.D. Traumatic Subarachnoid Hemorrhage Without Loss Of Consciousness Sequela (HCC) 05/15/2024 10:30 AM CDT Clinical Communication Virtual Review in [place], [place] 200 [place] [address] Blood Pressure 05/09/2024 Documentation Division of Endocrinology in [address] [phone] Lesley Reis R.N. Scheduling from Last 3 [...] 1 each daily. durable medical equipment (DME). Admazely feed bag Ref# [id number]. Change bag every 24 hours. 4 Active [...] = 0.6 oz pur e alcohol) [facility] Utilities Answer Date Recorded In the past 12 months has e [email or web address], gas, oil, or water [employer] threatened to shut off services in your [...] your living situation today? I have a [facility] [employer] [facility] to live 03/12/2024 Sex and Gender [...] CDT Comprehensive Visit Department of Neurology in [place], [place] [address] [place] [phone] Cristiane Palacio APRN, C.N.P., D.N.P. [address] [place], [place] [phone] Kriss Wharton M.S., CCC-PLASTIC SURGEON [address] [place] [phone] 08/15/2024 9:00 AM CDT Appointment Department of Radiology, [facility], in [place], [place] [address] [place] [phone] Cristiane Palacio APRN, C.N.P., D.N.P. [address] [place] [phone] Kriss Wharton M.S., CCC-PLASTIC SURGEON [address] [place] [phone] 08/15/2024 9:45 AM CDT Clinical Support Department of Neurology in [address] [phone] Cristiane Palacio, GRUPO C.N.P., D.N.P. [address] [place] [phone] Kriss Wharton M.S., CCC-PLASTIC SURGEON [address] [place] [phone] 08/15/2024 1:00 PM CDT Office Visit Department of Otorhinolaryngology in [address] [address] Rafal Rankin M.D. [address] [place] [phone] 08/15/2024 2:30 PM CDT Ancillary Procedure Department of Ophthalmology in [address] [address] Kandace Shankar M.D. [address] [place] [phone] 08/15/2024 3:00 PM CDT Comprehensive Visit Department of Ophthalmology in [address] [phone] Peña Carver M.D. [address] [place] [phone] 08/15/2024 4:15 PM CDT Office Visit Department of Ophthalmology in [address] [address] Kandace Shankar M.D. [address] [place] [phone] 08/20/2024 3:00 PM CDT Appointment Division of Gastroenterology in [place], [place] [address] [place] [phone] Cristiane Palacio APRN, C.N.P., D.N.P. [address] [place] [phone] 08/22/2024 4:20 PM CDT Telemedicine Division of Gastroenterology in [place], [place] [address] [place] [phone] Swapnil Jaramillo M.D. [address] [place] [phone] 10/22/2024 8:30 AM OPERATING ROOM NURSE Clinical Communication Virtual Review in [place], [place] 200 [place] [phone] 10/25/2024 10:30 AM OPERATING ROOM NURSE Comprehensive Visit Department of Neurology in [place], [place] [address] [place] [phone] Oziel Odonnell M.D. [address] [place] [phone] Procedures Procedure Name Priority Date/Time Associated Diagnosis Comments US GUIDANCE INTRAOPERATIVE RAD - Routine (most inpatients and all outpatients) 07/23/2024 1:42 PM CDT Sialorrhea INJECTION BOTOX 07/23/2024 12:56 PM CDT Sialorrhea Case Notes TEACHER AIDE at 11:23 OTORHINOLARYNGOLOGY IMAGE EXAM Routine 07/18/2024 [...] NG PROCEDURES Performing Organization Address [facility] Co de Phone Number IIMS NA * Sensory Motor Exam (05/20/2024 8:44 AM CDT) Narrative OPHTHALMOLGY NON-IMAGING ORDERS - 05/20/2024 9:49 AM CDT I have reviewed the medical record and the sensorimotor exam documentation. The findings are consistent with my previously initiated care plan. I agree with the impression, plan, and follow up as entered by the oil well engineer. Notes See note. Kandace Shankar M.D. OPHTH TOMOGRAPHY Performing Organization Address [facility] de Phone Number OPHTHALMOLGY NON-IMAGING ORDERS [...] Ganglion cell layer was 29.00 microns. Notes [facility] See note. Kandace Shankar M.D. OPHTH TOMOGRAPHY Performing Organization Address [facility] Co de Phone Number OPHTHALMOLOGY IMAGING EXAM [...] NG PROCEDURES Performing Organization Address [facility] de Phone Number IIMS NA * [...] FIEL D Performing Organization Address [facility] de Phone Number OPHTHALMOLOGY IMAGING EXAM * Clostridioides (Clostridium) Difficile Toxin, Molecular Detection, PCR, Feces (05/09/2024 8:50 AM CDT) C. difficile Toxin, F Negative Negative 05/09/2024 12:00 PM CDT DTL Stool (Stool) 05/09/2024 8:5 0 AM CDT 05/09/2024 9:40 AM CDT Stan Izaguirre M.D. LAB MICROBIOLOG Y - GENERAL ORDERABLES Performing Organization Address [facility] Co de Phone Number [facility] [address] [place] [address], [place] [facility] [address] [place] [address] * (ABNORMAL) Basic Metabolic Panel (02/28/2024 12:21 [...] Pham APRN C.N.P., M.S.N. LAB BLOOD ADD-ON [facility] [address] [place] [address], [facility] [address] [place] [address] from Last 3 Months or Most Recently Relevant to Health Maintenance Advance Directives For more information, please contact: [phone] Documents on File Type Date Recorded Patient Contact Manager Expl anation Advance Directives 02/28/2024 2:04 PM Malika Guillen HCPOA/ADVOCATE/AGENT/R EPRESENTATIVE/SURROGAT E * Full Code (Latest Code Status on File) Date Activated Date Inactivated Comments 02/27/2024 12:46 AM 02/28/2024 4:31 PM Question Answer Comments Full Code: Discussed Healthcare Agents on File Name Relationship Healthcare Agent Bhupendrawy ivonne Guillen Spouse Health Care Agent Malika Bryant Sister First Alternate Health Care Agent Care Teams Geospatial Applications Developer Relationship Specialty Start Date End Date Elsewhere, Pcp PCP - General Internal Medicine 02/26/24
--- OUTSIDE RECORDS SUMMARY | 2024-08-09 11:40 | XMS_ITS | Encounter Summary ---
Author Organization [facility] Address [address] [place] [address] Care Team Providers Care Insulation Helper Name Role Phone Elsewhere, Pcp Primary Care Provider Unavailabl e Encounter Details Date Type Department Care Team (Latest Contact Info) Description 06/18/2024 Clinical Communication Department of Otorhinolaryngology in [place], [place] [address] [place] [address] Rafal Rankin M.D. [address] [place] [address] Social History Tobacco Use Types Packs/Day Years Used Date Smoking Tobacco: Former Cigarettes Q uit: 1985 Smokeless Tobacco: Never Alcohol Use Standard Drinks/Week Comments Not Currently 0 (1 standard drink = 0.6 oz pur e alcohol) [facility] Utilities Answer Date Recorded In the [...] your living situation today? [facility] 03/12/2024 Sex and [...] CDT Comprehensive Visit Department of Neurology in [place], [place] 200 [place] [address] Cristiane Palacio, GRUPO, C.N.P., D.N.P. [address] [place] [phone] Kriss Wharton M.S., [facility] [address] [place] [phone] 08/15/2024 9:00 AM CDT Appointment Department of Radiology, [facility], in [place], [place] [address] [place] [phone] Cristiane Palacio APRN, C.N.P., D.N.P. [address] [place] [phone] Kriss Wharton M.S., [facility] [address] [place] [phone] 08/15/2024 9:45 AM CDT Clinical Support Department of Neurology in [place], [place] [address] [place] [phone] Cristiane Palacio APRN, C.N.P., D.N.P. [address] [place] [phone] Kriss Wharton M.S., [facility] [address] [place] [phone] 08/15/2024 1:00 PM CDT Office Visit Department of Otorhinolaryngology in [place], [place] [address] [place] [phone] Rafal Rankin M.D. [address] [place] [phone] 08/15/2024 2:30 PM CDT Ancillary Procedure Department of Ophthalmology in [place], [place] [address] [place] [phone] Kandace Shankar M.D. [address] [place] [phone] 08/15/2024 3:00 PM CDT Comprehensive Visit Department of Ophthalmology in [place], [place] [address] [place] [phone] Peña Carver M.D. [address] [place] [phone] 08/15/2024 4:15 PM CDT Office Visit Department of Ophthalmology in [place], [place] [address] [place] [phone] Kandace Shankar M.D. [address] [place] [phone] 08/20/2024 3:00 PM CDT Appointment Division of Gastroenterology in [place], [place] [address] [place] [phone] Cristiane Palacio APRN, C.N.P., D.N.P. [address] [place] [phone] 08/22/2024 4:20 PM CDT Telemedicine Division of Gastroenterology in [place], [place] [address] [place] [phone] Swapnil Jaramillo M.D. [address] [place] [phone] 10/22/2024 8:30 AM HEAVY EQUIPMENT PLUMBING SUPERVISOR Clinical Communication Virtual Review in [place], [place] 200 [place] [phone] 10/25/2024 10:30 AM HEAVY EQUIPMENT PLUMBING SUPERVISOR Comprehensive Visit Department of Neurology in [place], [place] [address] [place] [phone] Oziel Odonnell M.D. [address] [place] [phone] documented as of this encounter Visit Diagnoses Not on filedocumented in this encounter Care Teams Insulation Helper Relationship Specialty Start Date End Date Elsewhere, Pcp PCP - General Internal Medicine 02/26/24 documented as of this encounter
--- OUTSIDE RECORDS SUMMARY | 2024-08-09 11:40 | XMS_ITS | Encounter Summary ---
Author Organization [facility] Address [address] [place] [address] Care Team Providers Care Supervisor Cook House Name Role Phone Elsewhere, Pcp Primary Care Provider Unavailabl e Reason for Referral * Outpatient (Routine) - Authorized Specialty Diagnoses / Procedures Referred By Karine t Referred To Contact Diagnoses Dietary Counseling And Surveillance For Enteral Nutrition Procedures EGD ? Percutaneous Endoscopic Gastrostomy/Jejunostomy Cristiane Palacio APRN, C.N.P., D.N.P. [address] [place] [phone] [facility] Referral ID Status Reason Start Date Expiration Date V isits Requested Visits Authorized [id number] Authorized 06/18/2024 06/18/2025 1 1 * Outpatient (Routine) - Authorized Specialty Diagnoses / Procedures Referred By Contwaldemar t Referred To Contact Endocrinology Diagnoses Dietary Counseling And Surveillance For Enteral Nutrition Cristiane Palacio APRN, C.N.P., D.N.P. [address] [place] [phone] [facility] Referral ID Status Reason Start Date Expiration Date V isits Requested Visits Authorized [id number] Authorized 06/18/2024 12/18/2025 1 1 Scheduling Instructions TRIAGE ONLY Encounter Details Date Type Department Care Team (Late st Contact Info) Description 06/18/2024 Orders Only Division of Endocrinology in [place], [place] [address] [place] [address] Ankit Medina REdithNEdith Dietary Counseling And Surveillance For Enteral Nutrition (Primary Dx) Social History Tobacco Use Types Packs/Day Years Used Date Smoking Tobacco: Former Cigarettes Q uit: 1985 Smokeless Tobacco: Never Alcohol Use Standard Drinks/Week Comments Not Currently 0 (1 standard drink = 0.6 oz pur e alcohol) [facility] Utilities Answer Date Recorded In the past [address] [facility] [employer], gas, oil, or water [email or web address] threatened to shut off services in your [...] your living situation today? I have a [facility] place to live 03/12/2024 Sex and [...] CDT Comprehensive Visit Department of Neurology in [place], [place] [address] [place] [phone] Cristiane Palacio APRN, C.N.P., D.N.P. [address] [place], [place] [phone] Kriss Wharton M.S., [facility]ENEF[facility] CL[facility] [address] [place] [phone] 08/15/2024 9:00 AM CDT Appointment Department of Radiology, [facility], in [place], [place] [address] [place] [phone] Cristiane Palacio APRN, C.N.P., D.N.P. [address] [place] [phone] Kriss Wharton M.S., [facility]EF[facility]ERK [address] [place] [phone] 08/15/2024 9:45 AM CDT Clinical Support Department of Neurology in [place], [place] [address] [place] [phone] Cristiane Palacio, GRUPO C.N.P., D.N.P. [address] [place] [phone] Kriss Wharton M.S., [facility]EF[facility] CLERK [address] [place] [phone] 08/15/2024 1:00 PM CDT Office Visit Department of Otorhinolaryngology in [address] [phone] Rafal Rankin M.D. [address] [place] [phone] 08/15/2024 2:30 PM CDT Ancillary Procedure Department of Ophthalmology in [address] [phone] Kandace Shankar M.D. [address] [place] [phone] 08/15/2024 3:00 PM CDT Comprehensive Visit Department of Ophthalmology in [address] [phone] Peña Carver M.D. [address] [place] [phone] 08/15/2024 4:15 PM CDT Office Visit Department of Ophthalmology in [address] [phone] Kandace Shankar M.D. [address] [place] [phone] 08/20/2024 3:00 PM CDT Appointment Division of Gastroenterology in [place], [place] [address] [place] [phone] Cristiane Palacio APRN, C.N.P., D.N.P. [address] [place] [phone] 08/22/2024 4:20 PM CDT Telemedicine Division of Gastroenterology in [place], [place] [address] [place] [phone] Swapnil Jaramillo M.D. [address] [place] [phone] 10/22/2024 8:30 AM MOTOR REBUILDER Clinical Communication Virtual Review in [place], [place] [address] [place] [address] 10/25/2024 10:30 AM MOTOR REBUILDER Comprehensive Visit Department of Neurology in [place], [place] [address] [place] [phone] Oziel Odonnell M.D. [address] [place] [phone] Scheduled Orders Name Type Priority Associated Diagnoses [...] Primary documented in this encounter Care Teams Supervisor Cook House Relationship Specialty Start Date End Date Elsewhere, Pcp PCP - General Internal Medicine 02/26/24 documented as of this encounter
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
--- OUTSIDE RECORDS SUMMARY | 2024-08-09 11:40 | XMS_ITS | Encounter Summary ---
Author Organization [facility] Address [address] [place] [address] Care Team Providers Care Gasoline Plant Operator Name Role Phone Elsewhere, Pcp Primary Care Provider Unavailabl e Reason for Referral * Outpatient (Routine) - Closed Specialty Diagnoses / Procedures Referred By Contwaldemar t Referred To Contact Diagnoses Sialorrhea Procedures US Guidance Intraoperative Rafal Rankin M.D. 200 [place] [address] [facility] Referral ID Status Reason Start Date Expiration Date Visits Re quested Visits Authorized [id number] Closed 06/19/2024 06/19/2025 1 1 Encounter Details Date Type Department Care Team (Latest Contact Info) Description 06/18/2024 Orders Only Department of Otorhinolaryngology in [place], [place] [address] [place] [address] Luz Muir R.N. [address] [place] [phone] Sialorrhea (Primary Dx) Social History Tobacco Use [...] your living situation today? I have a [facility] place to live 03/12/2024 Sex and [...] CDT Comprehensive Visit Department of Neurology in [place], [place] [address] [place] [phone] Cristiane Palacio APRN, C.N.P., D.N.P. [address] [place] [phone] Kriss Wharton, M.S., [employer] [address] [place] [phone] 08/15/2024 9:00 AM CDT Appointment Department of Radiology, [facility], in [place], [place] [address] [place] [phone] Cristiane Palacio APRN, C.N.P., D.N.P. [address] [place] [phone] Kriss Wharton, M.S., [employer] [address] [place] [address] [phone] 08/15/2024 9:45 AM CDT Clinical Support Department of Neurology in [address] [phone] Cristiane Palacio APRN, C.N.P., D.N.P. [address] [place] [phone] Kriss Wharton, M.S., [employer] [address] [place] [address] [phone] 08/15/2024 1:00 PM CDT Office Visit Department of Otorhinolaryngology in [address] [place] [address] Rafal Rankin M.D. [address] [place] [phone] 08/15/2024 2:30 PM CDT Ancillary Procedure Department of Ophthalmology in [place], [place] [address] [place] [phone] Kandace Shankar M.D. [address] [place] [phone] 08/15/2024 3:00 PM CDT Comprehensive Visit Department of Ophthalmology in [place], [place] [address] [place] [phone] Peña Carver M.D. [address] [place] [phone] 08/15/2024 4:15 PM CDT Office Visit Department of Ophthalmology in [place], [place] [address] [place] [phone] Kandace Shankar M.D. [address] [place] [phone] 08/20/2024 3:00 PM CDT Appointment Division of Gastroenterology in [place], [place] [address] [place] [phone] Cristiane Palacio, GRUPO, C.N.P., D.N.P. [address] [place] [phone] 08/22/2024 4:20 PM CDT Telemedicine Division of Gastroenterology in [place], [place] [address] [place] [phone] Swapnil Jaramillo M.D. [address] [place] [phone] 10/22/2024 8:30 AM LOAN AUDITOR Clinical Communication Virtual Review in [place], [place] [address] [place] [address] 10/25/2024 10:30 AM LOAN AUDITOR Comprehensive Visit Department of Neurology in [place], [place] [address] [place] [phone] Oziel Odonnell M.D. [address] [place] [phone] documented as of this encounter Results * [...] Sialorrhea documented in this encounter Care Teams Gasoline Plant Operator Relationship Specialty Start Date End Date Elsewhere, Pcp PCP - General Internal Medicine 02/26/24 documented as of this encounter
--- OUTSIDE RECORDS SUMMARY | 2024-08-09 11:40 | XMS_ITS | Encounter Summary ---
Author Organization [facility] Address [address] [place] [address] Care Team Providers Care Sewing Department Supervisor Name Role Phone Elsewhere, Pcp Primary Care Provider Unavailabl e Reason for Referral * Outpatient (Routine) - Closed Specialty Diagnoses / Procedures Referred By Contwaldemar t Referred To Contact Otorhinolaryngology Rafal Rankin M.D. [address] [place] [phone] [facility] Referral ID Status Reason Start Date Expiration Date Visits Re quested Visits Authorized [id number] Closed 07/17/2024 01/16/2026 1 1 Scheduling Instructions Ok to add on at [address] Rankin 07/18/24 Encounter Details Date Type Department Care Team (Late st Contact Info) Description 07/17/2024 Orders Only Department of Otorhinolaryngology in [place], [place] [address] [place] [phone] Rafal Rankin M.D. [address] [place] [phone] Social History Tobacco Use Types Packs/Day Years Used Date Smoking Tobacco: Former Cigarettes Q uit: 1985 Smokeless Tobacco: Never Alcohol Use Standard Drinks/Week Comments Not Currently 0 (1 standard drink = 0.6 oz pur e alcohol) [facility] Utilities Answer Date Recorded In [...] your living situation today? I have a [facility] place to live 03/12/2024 Sex [...] CDT Comprehensive Visit Department of Neurology in [place], [place] [address] [place] [phone] Cristiane Palacio APRN, C.N.P., D.N.P. [address] [place] [phone] Kriss Wharton M.S., [facility]-HORTICULTURAL AGENT [address] [place] [address] [phone] 08/15/2024 9:00 AM CDT Appointment Department of Radiology, [facility], in [place], [place] [address] [place] [phone] Cristiane Palacio APRN, C.N.P., D.N.P. [address] [place] [phone] Kriss Wharton M.SEdith, [facility]-HORTICULTURAL AGENT [address] [place] [address] [phone] 08/15/2024 9:45 AM CDT Clinical Support Department of Neurology in [address] [phone] Cristiane Palacio APRN, C.N.P., D.N.P. [address] [place] [phone] Kriss Wharton M.Chris, [facility]-HORTICULTURAL AGENT [address] [place] [address] [phone] 08/15/2024 1:00 PM CDT Office Visit Department of Otorhinolaryngology in [place], [place] [address] [place] [phone] Rafal Rankin M.D. [address] [place] [phone] 08/15/2024 2:30 PM CDT Ancillary Procedure Department of Ophthalmology in [place], [place] [address] [place] [phone] Kandace Shankar M.D. [address] [place] [phone] 08/15/2024 3:00 PM CDT Comprehensive Visit Department of Ophthalmology in [place], [place] [address] [place] [phone] Peña Carver M.D. [address] [place] [phone] 08/15/2024 4:15 PM CDT Office Visit Department of Ophthalmology in [place], [place] [address] [place] [phone] Kandace Shankar M.D. [address] [place] [phone] 08/20/2024 3:00 PM CDT Appointment Division of Gastroenterology in [place], [place] [address] [place] [phone] Cristiane Palacio, GRUPO, C.N.P., D.N.P. [address] [place] [address] [phone] 08/22/2024 4:20 PM CDT Telemedicine Division of Gastroenterology in [place], [place] [address] [place] [phone] Swapnil Jaramillo M.D. [address] [place] [phone] 10/22/2024 8:30 AM ARBORIST CLIMBER Clinical Communication Virtual Review in [place], [place] 200 [place] [address] 10/25/2024 10:30 AM ARBORIST CLIMBER Comprehensive Visit Department of Neurology in [place], [place] [address] [place] [phone] Oziel Odonnell M.D. [address] [place] [phone] Scheduled Referrals Name Type Priority Associated Diagnoses Order Schedule Otorhinolaryngology office visit (clinic) Outpatient Referral Routine Expected: 07/18/2024, Expires: 10/16/2025 documented as of this encounter Visit Diagnoses Not on filedocumented in this encounter Care Teams Sewing Department Supervisor Relationship Specialty Start Date End Date Elsewhere, Pcp PCP - General Internal Medicine 02/26/24 documented as of this encounter
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
--- OUTSIDE RECORDS SUMMARY | 2024-08-09 11:40 | XMS_ITS | Encounter Summary ---
Author Organization [facility] Address [address] [place] [address] Care Team Providers Care Trouble Locater Name Role Phone Elsewhere, Pcp Primary Care Provider Unavailabl e Reason for Visit * Reason Comments Feeding Tube Encounter Details Date Type Department Care Team (Latest Contact Info) Description 06/18/2024 10:00 AM CDT Clinical Support Division of Endocrinology in [place], [place] [address] [place] [address] Stan Hernandez M.D. Ankit Medina, R.N. Dysphagia; [...] In the past 12 months has e [employer], gas, oil, or water [employer] threatened to shut off services in your [...] replaced: 05/15/2024 Patient reported replaced locally at [facility] Skin disk level: 3.5 cm moved to 4 cm Internal anchor device: Balloon, not checked Site condition: Tube site is concave in nature, just above an abdominal fold. Scant mucous drainagewith very small ridge of granulation tissue 4691-6187.The granulation tissue from 3775-8972 was scabbed over. circumferential erythema under skin [...] Self replacement: NA Special order tube: GI/IR director of supply chain notified? NA PLAN Is there a procedure [...] handout discussed and demonstrated. Granulation tissue from 6308-3170 treated with 1 stick of silver nitrate [...] with the TGJ tube, because they enjoy [employer] boarding. We discussed that his tube site [...] future tube care and replacements done at [facility]. *Per HEN provider Cristiane Palacio CNP nurse [...] CDT Comprehensive Visit Department of Neurology in [address] [phone] Cristiane Palacio APRN, C.N.P., D.N.P. [address] [place] [phone] Kirss Wharton M.S., CCC-PREASSEMBLER AND INSPECTOR [address] [place] [phone] 08/15/2024 9:00 AM CDT Appointment Department of Radiology, [facility], in [address] [phone] Cristiane Palacio APRN, C.N.P., D.N.P. [address] [place] [phone] Kriss Wharton M.S., CCC-PREASSEMBLER AND INSPECTOR [address] [place] [phone] 08/15/2024 9:45 AM CDT Clinical Support Department of Neurology in [address] [phone] Cristiane Palacio APRN, C.N.P., D.N.P. [address] [place] [address] [phone] Kriss Wharton M.S., CCC-PREASSEMBLER AND INSPECTOR [address] [place] [address] [phone] 08/15/2024 1:00 PM CDT Office Visit Department of Otorhinolaryngology in [place], [place] [address] [place] [phone] Rafal Rankin M.D. [address] [place] [phone] 08/15/2024 2:30 PM CDT Ancillary Procedure Department of Ophthalmology in [place], [place] [address] [place] [phone] Kandace Shankar M.D. [address] [place] [phone] 08/15/2024 3:00 PM CDT Comprehensive Visit Department of Ophthalmology in [place], [place] [address] [place] [phone] Peña Carver M.D. [address] [place] [phone] 08/15/2024 4:15 PM CDT Office Visit Department of Ophthalmology in [place], [place] [address] [place] [phone] Kandace Shankar M.D. [address] [place] [phone] 08/20/2024 3:00 PM CDT Appointment Division of Gastroenterology in [place], [place] [address] [place] [phone] Cristiane Palacio, GRUPO, C.N.P., D.N.P. [address] [place] [phone] 08/22/2024 4:20 PM CDT Telemedicine Division of Gastroenterology in [place], [place] [address] [place] [phone] Swapnil Jaramillo M.D. [address] [place] [phone] 10/22/2024 8:30 AM STRAIN TECHNICIAN Clinical Communication Virtual Review in [place], [place] 200 [place] [phone] 10/25/2024 10:30 AM STRAIN TECHNICIAN Comprehensive Visit Department of Neurology in [place], [place] [address] [place] [phone] Oziel Odonnell M.D. 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
--- OUTSIDE RECORDS SUMMARY | 2024-08-09 11:40 | XMS_ITS | Encounter Summary ---
Author Organization [facility] Address [address] [place] [address] Care Team Providers Care Tech Intern Name Role Phone Elsewhere, Pcp Primary [...] e alcohol) [facility] Utilities Answer Date Recorded In the past 12 months has e [employer], gas, oil, or water [employer] threatened to shut off services in your [...] your living situation today? I have a [facility] place to live 03/12/2024 Sex [...] CDT Comprehensive Visit Department of Neurology in [place], [place] 200 [place] [phone] Cristiane Palacio, GRUPO, C.N.P., D.N.P. [address] [place] [phone] Kriss Wharton M.S., [facility]-STORE MANAGER [address] [place] [address] [phone] 08/15/2024 9:00 AM CDT Appointment Department of Radiology, [facility], in [place], [place] [address] [place] [phone] Cristiane Palacio APRN, C.N.P., D.N.P. [address] [place] [phone] Kriss Wharton M.S., CCC-STORE MANAGER [address] [place] [phone] 08/15/2024 9:45 AM CDT Clinical Support Department of Neurology in [address] [phone] Cristiane Palacio APRN, C.N.P., D.N.P. [address] [place] [phone] Kriss Wharton M.S., CCC-STORE MANAGER [address] [place] [phone] 08/15/2024 1:00 PM CDT Office Visit Department of Otorhinolaryngology in [address] [phone] Rafal Rankin M.D. [address] [place] [phone] 08/15/2024 2:30 PM CDT Ancillary Procedure Department of Ophthalmology in [address] [phone] Kandace Shankar M.D. [address] [place] [phone] 08/15/2024 3:00 PM CDT Comprehensive Visit Department of Ophthalmology in [address] [phone] Peña Carver M.D. [address] [place] [phone] 08/15/2024 4:15 PM CDT Office Visit Department of Ophthalmology in [place], [place] [address] [place] [phone] Kandace Shankar M.D. [address] [place] [phone] 08/20/2024 3:00 PM CDT Appointment Division of Gastroenterology in [place], [place] [address] [place] [phone] Cristiane Palacio APRN, C.N.P., D.N.P. [address] [place] [phone] 08/22/2024 4:20 PM CDT Telemedicine Division of Gastroenterology in [place], [place] [address] [place] [phone] Swapnil Jaramillo M.D. [address] [place] [phone] 10/22/2024 8:30 AM TELEPHONE QUOTATION CLERK Clinical Communication Virtual Review in [place], [place] 200 [place] [address] 10/25/2024 10:30 AM TELEPHONE QUOTATION CLERK Comprehensive Visit Department of Neurology in [place], [place] [address] [place] [phone] Oziel Odonnell M.D. [address] [place] [phone] documented as of this encounter Procedures Procedure [...] on filedocumented in this encounter Care Teams Tech Intern Relationship Specialty Start Date End Date Elsewhere, Pcp PCP - General Internal Medicine 02/26/24 documented as of this encounter
--- OUTSIDE RECORDS SUMMARY | 2024-08-09 11:40 | XMS_ITS | Encounter Summary ---
Author Organization [facility] Address [address] [place] [address] Care Team Providers Care Supervisor Cooler Service Name Role Phone Elsewhere, Pcp Primary Care Provider Unavailabl e Reason for Referral * Outpatient (Routine) - Authorized Specialty Diagnoses / Procedures Referred By Contwaldemar t Referred To Contact Ophthalmology Diagnoses Diplopia Kandace Shankar M.D. [address] [place] [phone] [facility] Referral ID Status Reason Start Date Expiration Date V isits Requested Visits Authorized [id number] Authorized 05/20/2024 11/19/2025 1 1 Scheduling Instructions Coordinate with return visit in Neuro-Ophthalmology with Dr. Shankar Encounter Details Date Type Department Care Team (Late st Contact Info) Description 05/20/2024 Orders Only Department of Ophthalmology in [place], [place] [address] [place] [phone] Kandace Shankar M.D. [address] [place] [phone] Diplopia (Primary Dx) Social History Tobacco Use Types Packs/Day Years Used Date Smoking Tobacco: Former Cigarettes Q uit: 1985 Smokeless Tobacco: Never Alcohol Use Standard Drinks/Week Comments Not Currently 0 (1 standard drink = 0.6 oz pur e alcohol) [facility] Utilities Answer Date Recorded In [...] your living situation today? I have a [place] place to live 03/12/2024 Sex and Gender Information Value Date Recorded Sex Assigned at Male 03/12/2024 1:38 PM CDT Gender Identity Male 03/12/2024 1:38 PM CDT Sexual Orientation Straight 03/12/2024 1: 38 PM CDT documented as of this encounter Plan of Treatment Upcoming Encounters Date Type Department Care Team (Latest Contact Info) Description 08/15/2024 8:00 AM CDT Comprehensive Visit Department of Neurology in [address] [phone] Cristiane Palacio APRN, C.N.P., D.N.P. [address] [place] [phone] Kriss Wharton M.S., [facility]-PAINT PROCESS ENGINEER [address] [place] [address] [phone] 08/15/2024 9:00 AM CDT Appointment Department of Radiology, [facility], in [address] [phone] Cristiane Palacio APRN, C.N.P., D.N.P. [address] [place] [phone] Kriss Wharton M.Chris, [facility]-PAINT PROCESS ENGINEER [address] [place] [address] [phone] 08/15/2024 9:45 AM CDT Clinical Support Department of Neurology in [address] [phone] Cristiane Palacio APRN, C.N.P., D.N.P. [address] [place] [phone] Kriss Wharton M.Chris, [facility]-PAINT PROCESS ENGINEER [address] [place] [phone] 08/15/2024 1:00 PM CDT Office Visit Department of Otorhinolaryngology in [place], [place] [address] [place] [phone] Rafal Rankin M.D. [address] [place] [phone] 08/15/2024 2:30 PM CDT Ancillary Procedure Department of Ophthalmology in [place], [place] [address] [place] [phone] Kandace Shankar M.D. [address] [place] [phone] 08/15/2024 3:00 PM CDT Comprehensive Visit Department of Ophthalmology in [place], [place] [address] [place] [phone] Peña Carver M.D. [address] [place] [phone] 08/15/2024 4:15 PM CDT Office Visit Department of Ophthalmology in [place], [place] [address] [place] [phone] Kandace Shankar M.D. [address] [place] [phone] 08/20/2024 3:00 PM CDT Appointment Division of Gastroenterology in [place], [place] [address] [place] [phone] Cristiane Palacio, GRUPO, C.N.P., D.N.P. [address] [place] [phone] 08/22/2024 4:20 PM CDT Telemedicine Division of Gastroenterology in [place], [place] [address] [place] [address] [phone] Swapnil Jaramillo M.D. [address] [place] [phone] 10/22/2024 8:30 AM SEALING AND CANCELING MACHINE OPERATOR Clinical Communication Virtual Review in [place], [place] 200 [place] [address] 10/25/2024 10:30 AM SEALING AND CANCELING MACHINE OPERATOR Comprehensive Visit Department of Neurology in [place], [place] [address] [place] [phone] Oziel Odonnell M.D. [address] [place] [phone] Scheduled Referrals Name Type Priority Associated Diagnoses Order Schedule Ophthalmology - Adult strabismus consult (clinic) Outpatient Referral Routine Diplopia Expected: 08/20/2024, Expires: 08/20/2025 documented as of this encounter Visit Diagnoses Diagnosis Diplopia- Primary documented in this encounter Care Teams Supervisor Cooler Service Relationship Specialty Start Date End Date Elsewhere, Pcp PCP - General Internal Medicine 02/26/24 documented as of this encounter
--- OUTSIDE RECORDS SUMMARY | 2024-08-09 11:40 | XMS_ITS | Encounter Summary ---
Author Organization [facility] Address [address] [place] [address] Care Team Providers Care Buckram Sewer Name Role Phone Elsewhere, Pcp Primary Care Provider Unavailabl e Reason for Visit * Outpatient (Routine) - Closed Specialty Diagnoses / Procedures Referred By Contwaldemar t Referred To Contact Nutrition Diagnoses Dysphagia Stenosis Laryngeal Pneumonitis Due To Inhalation Of Food And Vomit (HCC) Stan Hernandez M.D. [facility] Referral ID Status Reason Start Date Expiration Date Visits Re quested Visits Authorized [id number] Closed 05/09/2024 11/08/2025 1 1 Encounter Details Date Type Department Care Team (Latest Contact Info) Description 06/18/2024 9:00 AM CDT Clinical Support Department of Nutrition and Diabetes Education in [place], [place] [address] [place] [phone] Stan Hernandez M.D. Johnson, Danelle A, M.S., RDN, LD [address] [place] [phone] Dietary Counseling And Surveillance For Enteral Nutrition (Primary Dx); Dysphagia; Stenosis Laryngeal; Pneumonitis Due To Inhalation Of Food And Vomit (HCC); Gastrojejunostomy Percutaneous Status Post Social History Tobacco Use Types Packs/Day Years Used Date Smoking Tobacco: Former Cigarettes Q uit: 1985 Smokeless Tobacco: Never Alcohol Use Standard Drinks/Week Comments Not Currently 0 (1 standard drink = 0.6 oz pur e alcohol) [facility] Utilities Answer Date Recorded In [...] your living situation today? I have a [facility] place to live 03/12/2024 Sex and [...] Relevant Social and Family History Resides in [place]. Medical Tests and Procedures/Biochemical Data VFSS (03/22/24): [...] Normal Muscle Mass: Normal Tube Information 18 Thai TGJ tube last replaced at [facility] 05/15/24 Food/Nutrient Related History Oral Intake: NPO [...] BMI: 22.2 Estimation of Nutritional Needs Calories: 6169-9105 kcals/day (30-35 kcal/kg) Protein: 88-110 grams/day (1.2-1.5 [...] that will provide needed supplies for home: [employer] in [place] - they are unhappy with what they [...] is followed in [facility]: He will contact us as needed. Time spent with patient (minutes): 60 documented in this encounter Plan of Treatment Upcoming Encounters Date Type Department Care Team (Latest Contact Info) Description 08/15/2024 8:00 AM CDT Comprehensive Visit Department of Neurology in [place], [place] [address] [place] [phone] Cristiane Palacio APRN, C.N.P., D.N.P. [address] [place] [phone] Kriss Wharton M.S., CCC-RELOCATION SERVICES SPECIALIST [address] [place] [address] [phone] 08/15/2024 9:00 AM CDT Appointment Department of Radiology, [facility], in [place], [place] [address] [place] [phone] Cristiane Palacio APRN, C.N.P., D.N.P. [address] [place] [phone] Kriss Wharton M.S., CCC-RELOCATION SERVICES SPECIALIST [address] [place] [phone] 08/15/2024 9:45 AM CDT Clinical Support Department of Neurology in [address] [phone] Cristiane Palacio APRN C.N.P., D.N.P. [address] [place] [phone] Kriss Wharton M.S., CCC-RELOCATION SERVICES SPECIALIST [address] [place] [phone] 08/15/2024 1:00 PM CDT Office Visit Department of Otorhinolaryngology in [address] [phone] Rafal Rankin M.D. [address] [place] [phone] 08/15/2024 2:30 PM CDT Ancillary Procedure Department of Ophthalmology in [place], [place] [address] [place] [phone] Kandace Shankar M.D. [address] [place] [phone] 08/15/2024 3:00 PM CDT Comprehensive Visit Department of Ophthalmology in [address] [phone] Peña Carver M.D. [address] [place] [phone] 08/15/2024 4:15 PM CDT Office Visit Department of Ophthalmology in [place], [place] [address] [place] [address] [phone] Kandace Shankar M.D. [address] [place] [address] [phone] 08/20/2024 3:00 PM CDT Appointment Division of Gastroenterology in [place], [place] [address] [place] [address] [phone] Cristiane Palacio, GRUPO, C.N.P., D.N.P. [address] [place] [address] [phone] 08/22/2024 4:20 PM CDT Telemedicine Division of Gastroenterology in [place], [place] [address] [place] [phone] Swapnil Jaramillo M.D. [address] [place] [phone] 10/22/2024 8:30 AM WATCH BAND ASSEMBLER Clinical Communication Virtual Review in [place], [place] 200 [place] [phone] 10/25/2024 10:30 AM WATCH BAND ASSEMBLER Comprehensive Visit Department of Neurology in [place], [place] [address] [place] [phone] Oziel Odonnell M.D. [address] [place] [address] [phone] documented as of this encounter Visit Diagnoses Diagnosis Dietary Counseling And Surveillance For Enteral Nutrition- Primary Dysphagia Stenosis Laryngeal Pneumonitis Due To Inhalation Of Food And Vomit (HCC) Gastrojejunostomy Percutaneous Status Post documented in this encounter Care Teams Buckram Sewer Relationship Specialty Start Date End Date Elsewhere, Pcp PCP - General Internal Medicine 4/15/24 documented as of this encounter
--- OUTSIDE RECORDS SUMMARY | 2024-08-09 11:40 | XMS_ITS | Encounter Summary ---
Author Organization [facility] Address [address] [place] [phone] Care Team Providers Care Food Service Manager Name Role Phone Elsewhere, Pcp Primary Care Provider Unavailabl e Reason for Visit * Outpatient (Routine) - Closed Specialty Diagnoses / Procedures Referred By Karine t Referred To Contact Otorhinolaryngology Rafal Rankin M.D. [address] [place] [address] [facility] Referral ID Status Reason Start Date Expiration Date Visits Re quested Visits Authorized [id number] Closed 06/17/2024 12/17/2025 1 1 Encounter Details Date Type Department Care Team (Latest Contact Info) Description 06/25/2024 9:00 AM CDT Telemedicine Department of Otorhinolaryngology in [place], [place] [address] [place] [phone] Rafal Rankin M.D. 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 I have a [facility] place to live 03/12/2024 Sex and Gender Information Value Date Recorded Sex Assigned at Male 03/12/2024 1:38 PM CDT Gender Identity Male 03/12/2024 1:38 PM CDT Sexual Orientation Straight 03/12/2024 1: 38 PM CDT documented as of this encounter Progress Notes * Rafal Rankin M.D. - 06/25/2024 9:00 AM CDT [facility] VIRTUAL VISIT The patient was present for a consult via real-time video technology by Dr. Rankin on 06/25/24 in [facility] to the patient in the patient's [...] Comprehensive Visit Department of Neurology in [address] [phone] Cristiane Palacio APRN, C.N.P., D.N.P. [address] [place] [address] [phone] Kriss Wharton M.S., CCC-BOTTOM LOADER [address] [place] [phone] 08/15/2024 9:00 AM CDT Appointment Department of Radiology, [facility], in [address] [phone] Cristiane Palacio APRN, C.N.P., D.N.P. [address] [place] [address] [phone] Kriss Wharton M.S., CCC-BOTTOM LOADER [address] [place] [phone] 08/15/2024 9:45 AM CDT Clinical Support Department of Neurology in [address] [phone] Cristiane Palacio, GRUPO C.N.P., D.N.P. [address] [place] [phone] Kriss Wharton M.S., [facility]-BOTTOM LOADER [address] [place] [address] [phone] 08/15/2024 1:00 PM CDT Office Visit Department of Otorhinolaryngology in [place], [place] [address] [place] [phone] Rafal Rankin M.D. [address] [place] [phone] 08/15/2024 2:30 PM CDT Ancillary Procedure Department of Ophthalmology in [place], [place] [address] [place] [phone] Kandace Shankar M.D. [address] [place] [phone] 08/15/2024 3:00 PM CDT Comprehensive Visit Department of Ophthalmology in [place], [place] [address] [place] [phone] Peña Carver M.D. [address] [place] [phone] 08/15/2024 4:15 PM CDT Office Visit Department of Ophthalmology in [place], [place] [address] [place] [phone] Kandace Shankar M.D. [address] [place] [phone] 08/20/2024 3:00 PM CDT Appointment Division of Gastroenterology in [place], [place] [address] [place] [phone] Cristiane Palacio APRN, C.N.P., D.N.P. [address] [place] [address] [phone] 08/22/2024 4:20 PM CDT Telemedicine Division of Gastroenterology in [place], [place] [address] [place] [address] [phone] Swapnil Jaramillo M.D. [address] [place] [address] [phone] 10/22/2024 8:30 AM BUSINESS PROCESS ANALYST Clinical Communication Virtual Review in [place], [place] 200 [place] [phone] 10/25/2024 10:30 AM BUSINESS PROCESS ANALYST Comprehensive Visit Department of Neurology in [place], [place] [address] [place] [address] [phone] Oziel Odonnell M.D. 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
--- OUTSIDE RECORDS SUMMARY | 2024-08-09 11:40 | XMS_ITS | Encounter Summary ---
Author Organization [facility] Address [address] [place] [address] Care Team Providers Care Supervisor Poultry Processing Name Role Phone Elsewhere, Pcp Primary Care Provider Unavailabl e Reason for Visit * Reason Comments Scheduling Encounter Details Date Type Department Care Team (Late st Contact Info) Description 06/18/2024 Documentation Division of Endocrinology in [place], [place] [address] [place] [address] Imelda Escamilla REdithN. Scheduling Social History Tobacco Use Types Packs/Day Years Used Date Smoking Tobacco: Former Cigarettes Q uit: 1985 Smokeless Tobacco: Never Alcohol Use Standard Drinks/Week Comments Not Currently 0 (1 standard drink = 0.6 oz pur e alcohol) [facility] Utilities Answer Date Recorded In [...] your living situation today? I have a [facility] place to live 03/12/2024 Sex and [...] a 30 minute slot, no anesthesia at --[facility], any complex doctor to do. Mona ent [...] CDT Comprehensive Visit Department of Neurology in [address] [phone] Cristiane Palacio APRN, C.N.P., D.N.P. [address] [place] [phone] Kriss Wharton M.Chris, CCC-RELATIONS LIAISON [address] [place] [address] [phone] 08/15/2024 9:00 AM CDT Appointment Department of Radiology, [facility], in [address] [phone] Cristiane Palacio APRN, C.N.P., D.N.P. [address] [place] [phone] Kriss Wharton M.S., CCC-RELATIONS LIAISON [address] [place] [address] [phone] 08/15/2024 9:45 AM CDT Clinical Support Department of Neurology in [address] [phone] Cristiane Palacio APRN, C.N.P., D.N.P. [address] [place] [address] [phone] Kriss Wharton M.S., CCC-RELATIONS LIAISON [address] [place] [phone] 08/15/2024 1:00 PM CDT Office Visit Department of Otorhinolaryngology in [place], [place] [address] [place] [phone] Rafal Rankin M.D. [address] [place] [phone] 08/15/2024 2:30 PM CDT Ancillary Procedure Department of Ophthalmology in [place], [place] [address] [place] [phone] Kandace Shankar M.D. [address] [place] [phone] 08/15/2024 3:00 PM CDT Comprehensive Visit Department of Ophthalmology in [place], [place] [address] [place] [address] [phone] Peña Carver M.D. [address] [place] [phone] 08/15/2024 4:15 PM CDT Office Visit Department of Ophthalmology in [place], [place] [address] [place] [phone] Kandace Shankar M.D. [address] [place] [phone] 08/20/2024 3:00 PM CDT Appointment Division of Gastroenterology in [place], [place] [address] [place] [address] [phone] Cristiane Palacio, MACHINE SETUP OPERATOR, C.N.P., D.N.P. [address] [place] [phone] 08/22/2024 4:20 PM CDT Telemedicine Division of Gastroenterology in [place], [place] [address] [place] [phone] Swapnil Jaramillo M.D. [address] [place] [phone] 10/22/2024 8:30 AM STRUCTURAL WELDER Clinical Communication Virtual Review in [place], [place] 200 [place] [phone] 10/25/2024 10:30 AM STRUCTURAL WELDER Comprehensive Visit Department of Neurology in [place], [place] [address] [place] [phone] Oziel Odonnell M.D. [address] [place] [phone] documented as of this encounter Visit Diagnoses Not on filedocumented in this encounter Care Teams Supervisor Poultry Processing Relationship Specialty Start Date End Date Elsewhere, Pcp PCP - General Internal Medicine 02/26/24 documented as of this encounter
--- OUTSIDE RECORDS SUMMARY | 2024-08-09 11:40 | XMS_ITS | Encounter Summary ---
Author Organization [facility] Address [address] [place] [address] Care Team Providers Care Treating And Pumping Supervisor Name Role Phone Elsewhere, Pcp Primary Care Provider Unavailabl e Reason for Visit * Outpatient (Routine) - Closed Specialty Diagnoses / Procedures Referred By Karine t Referred To Contact Otorhinolaryngology Rafal Rankin M.D. [address] [place] [address] [facility] Referral ID Status Reason Start Date Expiration Date Visits Re quested Visits Authorized [id number] Closed 07/17/2024 01/16/2026 1 1 Encounter Details Date Type Department Care Team (Latest Contact Info) Description 07/18/2024 1:00 PM CDT Office Visit Department of Otorhinolaryngology in [place], [place] [address] [place] [phone] Rafla Rankin M.D. 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 Utilities Answer Date Recorded In the past 12 months has e electric, gas, oil, or water [employer] threatened to shut off services in your [...] Rankin M.D. - 07/18/2024 1:00 PM CDT [facility] CHIEF COMPLAINT/PURPOSE OF VISIT: Follow [...] returns after seeing Dr. Cervantes yesterday at [facility]. Mood was a little down today [...] CDT Comprehensive Visit Department of Neurology in [address] [phone] Cristiane Palacio APRN, C.N.P., D.N.P. [address] [place] [phone] Kriss Wharton M.S., CCC-VIDEO CLERK [address] [place] [phone] 08/15/2024 9:00 AM CDT Appointment Department of Radiology, [facility], in [address] [phone] Cristiane Palacio APRN, C.N.P., D.N.P. [address] [place] [phone] Kriss Wharton M.S., CCC-VIDEO CLERK [address] [place] [phone] 08/15/2024 9:45 AM CDT Clinical Support Department of Neurology in [address] [phone] Cristiane Palacio APRN, C.N.P., D.N.P. [address] [place] [phone] Kriss Wharton M.S., [facility]-VIDEO CLERK [address] [place] [phone] 08/15/2024 1:00 PM CDT Office Visit Department of Otorhinolaryngology in [place], [place] [address] [place] [phone] Rafal Rankin M.D. [address] [place] [phone] 08/15/2024 2:30 PM CDT Ancillary Procedure Department of Ophthalmology in [place], [place] [address] [place] [phone] Kandace Shankar M.D. [address] [place] [phone] 08/15/2024 3:00 PM CDT Comprehensive Visit Department of Ophthalmology in [place], [place] [address] [place] [phone] Peña Carver M.D. [address] [place] [phone] 08/15/2024 4:15 PM CDT Office Visit Department of Ophthalmology in [place], [place] [address] [place] [phone] Kandace Shankar M.D. [address] [place] [phone] 08/20/2024 3:00 PM CDT Appointment Division of Gastroenterology in [place], [place] [address] [place] [phone] Cristiane Palacio APRN, C.N.P., CarlyN.P. [address] [place] [address] [phone] 08/22/2024 4:20 PM CDT Telemedicine Division of Gastroenterology in [place], [place] [address] [place] [phone] Swapnil Jaramillo M.D. [address] [place] [phone] 10/22/2024 8:30 AM BANQUET LEAD Clinical Communication Virtual Review in [place], [place] 200 [place] [phone] 10/25/2024 10:30 AM BANQUET LEAD Comprehensive Visit Department of Neurology in [place], [place] [address] [place] [phone] Oziel Odonnell M.D. 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
--- OUTSIDE RECORDS SUMMARY | 2024-08-09 11:40 | XMS_ITS | Encounter Summary ---
Author Organization [facility] Address [address] [place] [address] Care Team Providers Care Window Trimmer Name Role Phone Elsewhere, Pcp Primary Care Provider Unavailabl e Reason for Referral * Outpatient (Routine) - Closed Specialty Diagnoses / Procedures Referred By Contwaldemar t Referred To Contact Otorhinolaryngology Rafal Rankin M.D. [address] [place] [address] [facility] Referral ID Status Reason Start Date Expiration Date Visits Re quested Visits Authorized [id number] Closed 06/17/2024 12/17/2025 1 1 Encounter Details Date Type Department Care Team (Late st Contact Info) Description 06/17/2024 Orders Only Department of Otorhinolaryngology in [place], [place] [address] [place] [phone] Rafal Rankin M.D. [address] [place] [phone] Social History Tobacco Use Types Packs/Day Years [...] CDT Comprehensive Visit Department of Neurology in [address] [phone] Cristiane Palacio APRN, C.N.P., D.N.P. [address] [place] [phone] Kriss Wharton M.S., CCC-CIGAR MAKER [address] [place] [phone] 08/15/2024 9:00 AM CDT Appointment Department of Radiology, [facility], in [place], [place] [address] [place] [phone] Cristiane Palacio APRN, C.N.P., D.N.P. [address] [place] [phone] Kriss Wharton MBree, CCC-CIGAR MAKER [address] [place] [address] [phone] 08/15/2024 9:45 AM CDT Clinical Support Department of Neurology in [address] [phone] Cristiane Palacio APRN, C.N.P., D.N.P. [address] [place] [phone] Kriss Wharton M.S., CCC-CIGAR MAKER [address] [place] [address] [phone] 08/15/2024 1:00 PM CDT Office Visit Department of Otorhinolaryngology in [place], [place] [address] [place] [phone] Rafal Rankin M.D. [address] [place] [phone] 08/15/2024 2:30 PM CDT Ancillary Procedure Department of Ophthalmology in [place], [place] [address] [place] [phone] Kandace Shankar M.D. [address] [place] [phone] 08/15/2024 3:00 PM CDT Comprehensive Visit Department of Ophthalmology in [place], [place] [address] [place] [phone] Peña Carver M.D. [address] [place] [phone] 08/15/2024 4:15 PM CDT Office Visit Department of Ophthalmology in [place], [place] [address] [place] [phone] Kandace Shankar M.D. [address] [place] [phone] 08/20/2024 3:00 PM CDT Appointment Division of Gastroenterology in [place], [place] [address] [place] [phone] Cristiane Palacio APRN, C.N.P., D.N.P. [address] [place] [address] [phone] 08/22/2024 4:20 PM CDT Telemedicine Division of Gastroenterology in [place], [place] [address] [place] [phone] Swapnil Jaramillo M.D. [address] [place] [address] [phone] 10/22/2024 8:30 AM PROOF OPERATOR Clinical Communication Virtual Review in [place], [place] [address] [place] [phone] 10/25/2024 10:30 AM PROOF OPERATOR Comprehensive Visit Department of Neurology in [place], [place] [address] [place] [phone] Oziel Odonnell M.D. [address] [place] [phone] Scheduled Referrals Name Type Priority Associated Diagnoses Order Schedule Otorhinolaryngology office visit (clinic) Outpatient Referral Routine Expected: 06/17/2024, Expires: 09/17/2025 documented as of this encounter Visit Diagnoses Not on filedocumented in this encounter Care Teams Window Trimmer Relationship Specialty Start Date End Date Elsewhere, Pcp PCP - General Internal Medicine 02/26/24 documented as of this encounter
--- OUTSIDE RECORDS SUMMARY | 2024-08-09 11:40 | XMS_ITS | Encounter Summary ---
Author Organization [facility] Address [address] [place] [address] Care Team Providers Care Master Sonar Technician Name Role Phone Elsewhere, Pcp Primary Care Provider Unavailabl e Reason for Referral * Speech Pathology (Routine) - Authorized Specialty Diagnoses / Procedures Referred By Karine velasco Referred To Contact Diagnoses Dysphagia Procedures FURNITURE FINISHER HELPER - Ongoing treatment Cristiane Palacio APRN, C.N.P., D.N.P. [address] [place] [phone] [facility] Referral ID Status Reason Start Date Expiration Date V isits Requested Visits Authorized [id number] Authorized 06/18/2024 06/18/2025 99 99 * Outpatient (Routine) - Authorized Specialty Diagnoses / Procedures Referred By Karine velasco Referred To Contact Diagnoses Dysphagia Procedures FL Swallow Function with Video and Speech or OT Cristiane Palacio APRN, C.N.P., D.N.P. [address] [place] [phone] [facility] Referral ID Status Reason Start Date Expiration Date V isits Requested Visits Authorized [id number] Authorized 06/18/2024 06/18/2025 1 1 * Speech Pathology (Routine) - Authorized Specialty Diagnoses / Procedures Referred By Contac t Referred To Contact Diagnoses Dysphagia Procedures FURNITURE FINISHER HELPER Dysphagia evaluate and treat Cristiane Palacio APRN C.N.PEdith, D.N.P. [address] [place] [phone] [facility] Referral ID Status Reason Start Date Expiration Date V isits Requested Visits Authorized [id number] Authorized 06/18/2024 06/18/2025 99 99 Encounter Details Date Type Department Care Team (Late st Contact Info) Description 06/18/2024 Orders Only Division of Endocrinology in [place], [place] [address] [place] [phone] Cristiane Palacio APRN, C.N.P., D.N.P. [address] [place] [phone] Dysphagia (Primary Dx) Social History Tobacco Use Types Packs/Day Years Used Date Smoking Tobacco: Former Cigarettes Q uit: 1985 Smokeless Tobacco: Never Alcohol Use Standard Drinks/Week Comments Not Currently 0 (1 standard drink = 0.6 oz pur e alcohol) [facility] Utilities Answer Date Recorded In the past 12 months has e electric, gas, oil, or water [employer] threatened to shut off services in your [...] living situation today? I have a [facility] place to live 03/12/2024 Sex and Gender Information Value Date Recorded Sex Assigned at Male 03/12/2024 1:38 PM CDT Gender Identity Male 03/12/2024 1:38 PM CDT Sexual Orientation Straight 03/12/2024 1: 38 PM CDT documented as of this encounter Plan of Treatment Upcoming Encounters Date Type Department Care Team (Latest Contact Info) Description 08/15/2024 8:00 AM CDT Comprehensive Visit Department of Neurology in [place], [place] [address] [place] [address] Cristiane Palacio, GRUPO, C.N.P., D.N.P. [address] [place] [phone] Kriss Wharton M.S., [facility] [address] [place] [phone] 08/15/2024 9:00 AM CDT Appointment Department of Radiology, [facility], in [place], [place] [address] [place] [phone] Cristiane Palacio APRN, C.N.PEdith, D.N.P. [address] [place] [phone] Kriss Wharton M.S., [facility] [address] [place] [phone] 08/15/2024 9:45 AM CDT Clinical Support Department of Neurology in [place], [place] [address] [place] [phone] Cristiane Palacio APRN, C.N.P., D.N.P. [address] [place] [phone] Kriss Wharton M.S., [facility] [address] [place] [phone] 08/15/2024 1:00 PM CDT Office Visit Department of Otorhinolaryngology in [place], [place] [address] [place] [phone] Rafal Rankin M.D. [address] [place] [phone] 08/15/2024 2:30 PM CDT Ancillary Procedure Department of Ophthalmology in [place], [place] [address] [place] [phone] Kandace Shankar M.D. [address] [place] [phone] 08/15/2024 3:00 PM CDT Comprehensive Visit Department of Ophthalmology in [place], [place] [address] [place] [phone] Peña Carver M.D. [address] [place] [phone] 08/15/2024 4:15 PM CDT Office Visit Department of Ophthalmology in [place], [place] [address] [place] [phone] Kandace Shankar M.D. [address] [place] [phone] 08/20/2024 3:00 PM CDT Appointment Division of Gastroenterology in [place], [place] [address] [place] [phone] Cristiane Palacio, GRUPO, C.N.P., D.N.P. [address] [place] [phone] 08/22/2024 4:20 PM CDT Telemedicine Division of Gastroenterology in [place], [place] [address] [place] [phone] Swapnil Jaramillo M.D. [address] [place] [phone] 10/22/2024 8:30 AM METROLOGY SPECIALIST Clinical Communication Virtual Review in [place], [place] 200 [place] [phone] 10/25/2024 10:30 AM METROLOGY SPECIALIST Comprehensive Visit Department of Neurology in [place], [place] [address] [place] [phone] Oziel Odonnell M.D. [address] [place] [phone] Scheduled Orders Name Type Priority Associated Diagnoses Orde r Schedule FL Swallow Function with Video and Speech or OT Imaging RAD - Routine (most inpatients and all outpatients) Dysphagia Expected: 06/18/2024, Expires: 09/18/2025 documented as of this encounter Visit Diagnoses Diagnosis Dysphagia- Primary documented in this encounter Care Teams Master Sonar Technician Relationship Specialty Start Date End Date Elsewhere, Pcp PCP - General Internal Medicine 02/26/24 documented as of this encounter
--- OUTSIDE RECORDS SUMMARY | 2024-08-09 11:40 | XMS_ITS | Encounter Summary ---
Author Organization [facility] Address [address] [place] [address] Care Team Providers Care Access Director Name Role Phone Elsewhere, Pcp Primary Care Provider Unavailabl e Reason for Visit * Auth/Cert (Routine) Specialty Diagnoses / Procedures Referred By Contwaldemar t Referred To Contact Diagnoses Sialorrhea Sialorrhea [K11.7] Procedures SD CHEMODENERV PAROTID SUBMAN INJECTION BOTOX TO SALIVARY GLANDS 100 units total (25 units into each gland), ULTRASOUND GUIDANCE; PROCEED INDICATED Rafal Rankin M.D. [address] [place] [address] Referral ID Status Reason Start Date Expiration Date Visits Re quested Visits Authorized [id number] 1 1 Encounter Details Date Type Department Care Team (Latest Contact Info) Description 07/23/2024 11:19 AM CDT - 07/23/2024 2:16 PM CDT Hospital Encounter [facility] [address] [place] [address] Rafal Rankin M.D. [address] [place] [phone] Discharge Disposition: Home or Self Care Social History Tobacco Use Types Packs/Day Years Used Date Smoking Tobacco: Former Cigarettes Q uit: 1985 Smokeless Tobacco: Never Alcohol Use Standard Drinks/Week Comments Not Currently 0 (1 standard drink = 0.6 oz pur e alcohol) [facility] Utilities Answer Date Recorded In the [...] equipment (DME). Anival Kelley feed bag Ref# [id number]. Change bag every 24 hours. 03/27/2024 UNABLE [...] CDT Comprehensive Visit Department of Neurology in [place], [place] 200 [place] [address] Cristiane Palacio APRN, C.N.P., D.N.P. [address] [place] [address] Kriss Wharton M.S., [facility] [address] [place] [phone] 08/15/2024 9:00 AM CDT Appointment Department of Radiology, [facility], in [place], [place] [address] [place] [phone] Cristiane Palacio APRN, C.N.P., D.N.P. [address] [place] [phone] Kriss Wharton M.S., [facility] [address] [place] [phone] 08/15/2024 9:45 AM CDT Clinical Support Department of Neurology in [address] [phone] Cristiane Palacio APRN, C.N.P., D.N.P. [address] [place] [phone] Kriss Wharton M.S., [facility] [address] [place] [phone] 08/15/2024 1:00 PM CDT Office Visit Department of Otorhinolaryngology in [address] [phone] Rafal Rankin M.D. [address] [place] [phone] 08/15/2024 2:30 PM CDT Ancillary Procedure Department of Ophthalmology in [place], [place] [address] [place] [phone] Kandace Shankar M.D. [address] [place] [phone] 08/15/2024 3:00 PM CDT Comprehensive Visit Department of Ophthalmology in [place], [place] [address] [place] [phone] Peña Carver M.D. [address] [place] [phone] 08/15/2024 4:15 PM CDT Office Visit Department of Ophthalmology in [place], [place] [address] [place] [phone] Kandace Shankar M.D. [address] [place] [phone] 08/20/2024 3:00 PM CDT Appointment Division of Gastroenterology in [place], [place] [address] [place] [phone] Cristiane Palacio, GRUPO, C.N.P., D.N.P. [address] [place] [phone] 08/22/2024 4:20 PM CDT Telemedicine Division of Gastroenterology in [place], [place] [address] [place] [phone] Swapnil Jaramillo M.D. [address] [place] [phone] 10/22/2024 8:30 AM ROLL TENSION TESTER Clinical Communication Virtual Review in [place], [place] 200 [place] [phone] 10/25/2024 10:30 AM ROLL TENSION TESTER Comprehensive Visit Department of Neurology in [place], [place] [address] [place] [phone] Oziel Odonnell M.D. [address] [place] [phone] documented as of this encounter Procedures Procedure Name Priority Date/Time Associated Diagnosis Comments INJECTION BOTOX 07/23/2024 12:56 PM CDT Sialorrhea Case Notes COLOR MAKER DYER at 11:23 documented in this encounter Visit [...] injection documented in this encounter Care Teams Access Director Relationship Specialty Start Date End Date Elsewhere, Pcp PCP - General Internal Medicine 02/26/24 documented as of this encounter
--- OUTSIDE RECORDS SUMMARY | 2024-08-09 11:41 | XMS_ITS | Encounter Summary ---
Author Organization [facility] Address [address] [place] [phone] Care Team Providers Care Ncr Operator Name Role Phone Elsewhere, Pcp Primary Care Provider Unavailabl e Reason for Visit * Reason Onset Date Comments Blood Pressure 05/15/2024 Encounter Details Date Type Department Care Team (Latest Contact Info) Description 05/15/2024 10:30 AM CDT Clinical Communication Virtual Review in [place], [place] 200 [place] [address] Blood Pressure Social History Tobacco Use Types [...] living situation today? I have a [facility] place to live 03/12/2024 Sex and Gender Information Value Date Recorded Sex Assigned at Male 03/12/2024 1:38 PM CDT Gender Identity Male 03/12/2024 1:38 PM CDT Sexual Orientation Straight 03/12/2024 1: 38 PM CDT documented as of this encounter Plan of Treatment Upcoming Encounters Date Type Department Care Team (Latest Contact Info) Description 08/15/2024 8:00 AM CDT Comprehensive Visit Department of Neurology in [place], [place] 200 [place] [address] Cristiane Palacio, GRUPO, C.N.P., D.N.P. 200 [place] [address] Kriss Wharton M.S., [facility]MONOTYPE MACHINIST [address] [place] [phone] 08/15/2024 9:00 AM CDT Appointment Department of Radiology, [facility], in [place], [place] [address] [place] [phone] Cristiane Palacio APRN, C.N.P., D.N.P. [address] [place] [phone] Kriss Wharton M.S., [facility] [address] [place] [phone] 08/15/2024 9:45 AM CDT Clinical Support Department of Neurology in [place], [place] [address] [place] [phone] Cristiane Palacio APRN, C.N.P., D.N.P. [address] [place] [phone] Kriss Wharton M.S., [facility] [address] [place] [phone] 08/15/2024 1:00 PM CDT Office Visit Department of Otorhinolaryngology in [place], [place] [address] [place] [phone] Rafal Rankin M.D. [address] [place] [phone] 08/15/2024 2:30 PM CDT Ancillary Procedure Department of Ophthalmology in [place], [place] [address] [place] [phone] Kandace Shankar M.D. [address] [place] [phone] 08/15/2024 3:00 PM CDT Comprehensive Visit Department of Ophthalmology in [place], [place] [address] [place] [phone] Peña Carver M.D. [address] [place] [phone] 08/15/2024 4:15 PM CDT Office Visit Department of Ophthalmology in [place], [place] [address] [place] [phone] Kandace Shankar M.D. [address] [place] [phone] 08/20/2024 3:00 PM CDT Appointment Division of Gastroenterology in [place], [place] [address] [place] [phone] Cristiane Palacio APRN, C.N.P., D.N.P. [address] [place] [phone] 08/22/2024 4:20 PM CDT Telemedicine Division of Gastroenterology in [place], [place] [address] [place] [phone] Swapnil Jaramillo M.D. [address] [place] [phone] 10/22/2024 8:30 AM CAPACITOR REPAIRER Clinical Communication Virtual Review in [place], [place] 200 [place] [address] 10/25/2024 10:30 AM CAPACITOR REPAIRER Comprehensive Visit Department of Neurology in [place], [place] [address] [place] [phone] Oziel Odonnell M.D. [address] [place] [phone] documented as of this encounter Visit Diagnoses Not on filedocumented in this encounter Care Teams Ncr Operator Relationship Specialty Start Date End Date Elsewhere, Pcp PCP - General Internal Medicine 02/26/24 documented as of this encounter
--- OUTSIDE RECORDS SUMMARY | 2024-08-09 11:41 | XMS_ITS | Encounter Summary ---
Author Organization [facility] Address [address] [place] [address] Care Team Providers Care Psych Rn Name Role Phone Elsewhere, Pcp Primary Care Provider Unavailabl e Encounter Details Date Type Department Care Team (Latest Contact Info) Description 05/17/2024 4:30 PM CDT Ancillary Procedure Department of Ophthalmology in [place], [place] [address] [place] [address] Kandace Shankar M.D. 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 I have a [facility] place to live 03/12/2024 Sex [...] CDT Comprehensive Visit Department of Neurology in [place], [place] [address] [place] [address] PalacioCristiane Bragg APRN C.N.P., D.N.P. [address] [place] [phone] Kriss Wharton M.S., [facility] [address] [place] [phone] 08/15/2024 9:00 AM CDT Appointment Department of Radiology, [facility], in [place], [place] [address] [place] [phone] Cristiane Palacio APRN C.N.P., D.N.P. [address] [place] [phone] Kriss Wharton, MBree, [facility] [address] [place] [phone] 08/15/2024 9:45 AM CDT Clinical Support Department of Neurology in [address] [phone] Cristiane Palacio APRN, C.N.P., D.N.P. [address] [place] [phone] Kriss Wharton, M.SEdith, [facility] [address] [place] [phone] 08/15/2024 1:00 PM CDT Office Visit Department of Otorhinolaryngology in [place], [place] [address] [place] [phone] Rafal Rankin M.D. [address] [place] [phone] 08/15/2024 2:30 PM CDT Ancillary Procedure Department of Ophthalmology in [place], [place] [address] [place] [phone] TaKandace haque M.D. [address] [place] [phone] 08/15/2024 3:00 PM CDT Comprehensive Visit Department of Ophthalmology in [place], [place] [address] [place] [phone] Peña Carver M.D. [address] [place] [phone] 08/15/2024 4:15 PM CDT Office Visit Department of Ophthalmology in [place], [place] [address] [place] [phone] Kandace Shankar M.D. [address] [place] [phone] 08/20/2024 3:00 PM CDT Appointment Division of Gastroenterology in [place], [place] [address] [place] [phone] Cristiane Palacio, GRUPO, C.N.P., D.N.P. [address] [place] [phone] 08/22/2024 4:20 PM CDT Telemedicine Division of Gastroenterology in [place], [place] [address] [place] [phone] Swapnil Jaramillo M.D. [address] [place] [phone] 10/22/2024 8:30 AM EAR SPECIALIST Clinical Communication Virtual Review in [place], [place] 200 [place] [phone] 10/25/2024 10:30 AM EAR SPECIALIST Comprehensive Visit Department of Neurology in [place], [place] [address] [place] [phone] Oziel Odonnell M.D. [address] [place] [phone] documented as of this encounter Procedures Procedure [...] 1:46 PM CDT OCT device used was [employer] . Right Eye Reliability was good. Average RNFL was 93.00 microns. Ganglion cell layer was 45.00 microns. Left Eye Reliability was good. Average RNFL was 91.00 microns. Ganglion cell layer was 29.00 microns. Notes [facility] See note. Kandace Shankar M.D. 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
--- OUTSIDE RECORDS SUMMARY | 2024-08-09 11:41 | XMS_ITS | Encounter Summary ---
Author Organization [facility] Address [address] [place] [address] Care Team Providers Care Water Main Installer Helper Name Role Phone Elsewhere, Pcp Primary [...] 0.6 oz pur e alcohol) [facility] Utilities Answer Date Recorded In the past 12 months has e [employer], gas, oil, or water [employer] threatened to shut off services in your [...] your living situation today? I have a [facility] place to live 03/12/2024 Sex and [...] CDT Comprehensive Visit Department of Neurology in [place], [place] 200 [place] [phone] Cristiane Palacio, GRUPO, C.N.P., D.N.P. [address] [place] [phone] Kriss Wharton M.S., [facility]-HEALTHCARE ACCOUNT MANAGER [address] [place] [phone] 08/15/2024 9:00 AM CDT Appointment Department of Radiology, [facility], in [place], [place] [address] [place] [phone] Cristiane Palacio APRN C.N.P., D.N.P. [address] [place] [phone] Krsis Wharton M.S., [facility]-HEALTHCARE ACCOUNT MANAGER [address] [place] [phone] 08/15/2024 9:45 AM CDT Clinical Support Department of Neurology in [address] [phone] Cristiane Palacio APRN, C.N.P., D.N.P. [address] [place] [phone] Kriss Wharton M.S., [employer]-HEALTHCARE ACCOUNT MANAGER [address] [place] [phone] 08/15/2024 1:00 PM CDT Office Visit Department of Otorhinolaryngology in [address] [phone] Rafal Rankin M.D. [address] [place] [phone] 08/15/2024 2:30 PM CDT Ancillary Procedure Department of Ophthalmology in [address] [phone] Kandace Shankar M.D. [address] [place] [phone] 08/15/2024 3:00 PM CDT Comprehensive Visit Department of Ophthalmology in [place], [place] [address] [place] [phone] Peña Carver M.D. [address] [place] [phone] 08/15/2024 4:15 PM CDT Office Visit Department of Ophthalmology in [place], [place] [address] [place] [phone] Kandace Shankar M.D. [address] [place] [phone] 08/20/2024 3:00 PM CDT Appointment Division of Gastroenterology in [place], [place] [address] [place] [phone] Cristiane Palacio APRN, C.N.P., D.N.P. [address] [place] [phone] 08/22/2024 4:20 PM CDT Telemedicine Division of Gastroenterology in [place], [place] [address] [place] [phone] Swapnil Jaramillo M.D. [address] [place] [phone] 10/22/2024 8:30 AM COUNTY HOME DEMONSTRATION AGENT Clinical Communication Virtual Review in [place], [place] 200 [place] [phone] 10/25/2024 10:30 AM COUNTY HOME DEMONSTRATION AGENT Comprehensive Visit Department of Neurology in [place], [place] [address] [place] [phone] Oziel Odonnell M.D. [address] [place] [phone] documented as of this encounter Procedures Procedure [...] on filedocumented in this encounter Care Teams Water Main Installer Helper Relationship Specialty Start Date End Date Elsewhere, Pcp PCP - General Internal Medicine 02/26/24 documented as of this encounter
--- OUTSIDE RECORDS SUMMARY | 2024-08-09 11:41 | XMS_ITS | Encounter Summary ---
Author Organization [facility] Address [address] [place] [address] Care Team Providers Care Tip Printer Name Role Phone Elsewhere, Pcp Primary Care Provider Unavailabl e Reason for Visit * Outpatient (Routine) - Closed Specialty Diagnoses / Procedures Referred By Contact Referred To Contact Gastroenterology and Hepatology Diagnoses Dysphagia Gastroparesis Rafal Rankin M.D. [address] [place] [address] [facility] Referral ID Status Reason Start Date Expiration Date Visits Re quested Visits Authorized [id number] Closed 03/19/2024 09/18/2025 1 1 Encounter Details Date Type Department Care Team (Latest Contact Info) Description 05/03/2024 2:10 PM CDT Comprehensive Visit Division of Gastroenterology in [place], [place] [address] [place] [phone] Rafal Rankin M.D. [address] [place] [phone] Stan Hernandez M.D. Heartburn (Primary Dx); Dysphagia; Gastroparesis; Diarrhea Social History Tobacco Use Types Packs/Day Years Used Date Smoking Tobacco: Former Cigarettes Smokeless Tobacco: Never Alcohol Use Standard Drinks/Week Comments Not Currently 0 (1 standard drink = 0.6 oz pur e alcohol) [facility] Utilities Answer Date Recorded In [...] interested in having G-J tube exchanged at [place]: we will look into this. Agree with [...] bowel movements a day of watery stools ([place] 7). He had recent started Imodium 2 [...] CDT Comprehensive Visit Department of Neurology in [address] [phone] Cristiane Palacio APRN, C.N.P., D.N.P. [address] [place] [address] [phone] Kriss Wharton M.S., [facility] [address] [place] [phone] 08/15/2024 9:00 AM CDT Appointment Department of Radiology, [facility], in [address] [phone] Cristiane Palacio APRN, C.N.P., D.N.P. [address] [place] [phone] Kriss Wharton M.S., [facility] [address] [place] [phone] 08/15/2024 9:45 AM CDT Clinical Support Department of Neurology in [address] [phone] Cristiane Palacio APRN, C.N.P., D.N.P. [address] [place] [phone] Kriss Wharton M.S., [facility]-[employer] [address] [place] [phone] 08/15/2024 1:00 PM CDT Office Visit Department of Otorhinolaryngology in [place], [place] [address] [place] [phone] Rafal Rankin M.D. [address] [place] [phone] 08/15/2024 2:30 PM CDT Ancillary Procedure Department of Ophthalmology in [place], [place] [address] [place] [phone] Kandace Shankar M.D. [address] [place] [phone] 08/15/2024 3:00 PM CDT Comprehensive Visit Department of Ophthalmology in [place], [place] [address] [place] [phone] Peña Carver M.D. [address] [place] [phone] 08/15/2024 4:15 PM CDT Office Visit Department of Ophthalmology in [place], [place] [address] [place] [phone] Kandace Shankar M.D. [address] [place] [phone] 08/20/2024 3:00 PM CDT Appointment Division of Gastroenterology in [place], [place] [address] [place] [phone] Cristiane Palacio, GRUPO, C.N.P., D.N.P. [address] [place] [phone] 08/22/2024 4:20 PM CDT Telemedicine Division of Gastroenterology in [place], [place] [address] [place] [phone] Swapnil Jaramillo M.D. [address] [place] [phone] 10/22/2024 8:30 AM DIRECTOR OF RESIDENTIAL SERVICES Clinical Communication Virtual Review in [place], [place] 200 [place] [phone] 10/25/2024 10:30 AM DIRECTOR OF RESIDENTIAL SERVICES Comprehensive Visit Department of Neurology in [place], [place] [address] [place] [phone] Oziel Odonnell M.D. [address] [place] [phone] documented as of this encounter Results * Clostridioides (Clostridium) Difficile Toxin, Molecular Detection, PCR, Feces (05/09/2024 8:50 AM CDT) C. difficile Toxin, F Negative Negative 05/09/2024 12:00 PM CDT DTL Stool (Stool) 05/09/2024 8:5 0 AM CDT 05/09/2024 9:40 AM CDT Stan Izaguirre M.D. LAB MICROBIOLOG Y - GENERAL ORDERABLES [facility] 200 [place] [address], [facility] DTL [facility] 200 [place] [address] documented in this encounter Visit Diagnoses Diagnosis Heartburn- Primary Dysphagia Gastroparesis Diarrhea documented in this encounter Care Teams Tip Printer Relationship Specialty Start Date End Date Elsewhere, Pcp PCP - General Internal Medicine 02/26/24 documented as of this encounter
--- OUTSIDE RECORDS SUMMARY | 2024-08-09 11:41 | XMS_ITS | Encounter Summary ---
Author Organization [facility] Address [address] [place] [address] Care Team Providers Care Undercollar Baster Name Role Phone Elsewhere, Pcp Primary Care Provider Unavailabl e Encounter Details Date Type Department Care Team (Latest Contact Info) Description 05/17/2024 3:00 PM CDT Ancillary Procedure Department of Ophthalmology in [place], [place] [address] [place] [address] Kandace Shankar M.D. 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 I have a [facility] place to live 03/12/2024 Sex and [...] CDT Comprehensive Visit Department of Neurology in [place], [place] [address] [place] [address] PalacioCristiane Bragg APRN C.N.P., D.N.P. [address] [place] [phone] Kriss Wharton M.S., [facility] [address] [place] [phone] 08/15/2024 9:00 AM CDT Appointment Department of Radiology, [facility], in [place], [place] [address] [place] [phone] Cristiane Palacio APRN C.N.P., D.N.P. [address] [place] [phone] Kriss Wharton, MBree, [facility] [address] [place] [phone] 08/15/2024 9:45 AM CDT Clinical Support Department of Neurology in [address] [phone] Cristiane Palacio APRN, C.N.P., D.N.P. [address] [place] [phone] Kriss Wharton, M.SEdith, [facility] [address] [place] [phone] 08/15/2024 1:00 PM CDT Office Visit Department of Otorhinolaryngology in [place], [place] [address] [place] [phone] Rafal Rankin M.D. [address] [place] [phone] 08/15/2024 2:30 PM CDT Ancillary Procedure Department of Ophthalmology in [place], [place] [address] [place] [phone] TaKandace haque M.D. [address] [place] [phone] 08/15/2024 3:00 PM CDT Comprehensive Visit Department of Ophthalmology in [place], [place] [address] [place] [phone] Peña Carver M.D. [address] [place] [phone] 08/15/2024 4:15 PM CDT Office Visit Department of Ophthalmology in [place], [place] [address] [place] [phone] Kandace Shankar M.D. [address] [place] [phone] 08/20/2024 3:00 PM CDT Appointment Division of Gastroenterology in [place], [place] [address] [place] [phone] Cristiane Palacio, GRUPO, C.N.P., D.N.P. [address] [place] [phone] 08/22/2024 4:20 PM CDT Telemedicine Division of Gastroenterology in [place], [place] [address] [place] [phone] Swapnil Jaramillo M.D. [address] [place] [phone] 10/22/2024 8:30 AM MANAGER GRANT Clinical Communication Virtual Review in [place], [place] 200 [place] [phone] 10/25/2024 10:30 AM MANAGER GRANT Comprehensive Visit Department of Neurology in [place], [place] [address] [place] [phone] Oziel Odonnell M.D. [address] [place] [phone] documented as of this encounter Procedures Procedure [...] (HCC) documented in this encounter Care Teams Undercollar Baster Relationship Specialty Start Date End Date Elsewhere, Pcp PCP - General Internal Medicine 02/26/24 documented as of this encounter
--- OUTSIDE RECORDS SUMMARY | 2024-08-09 11:41 | XMS_ITS | Clinical Summary ---
Author Organization [facility] Address [place], [place] [address] Care Team Providers Care Manager Android Name Role Phone Sandy Matta DO Primary Care Provider [phone] Allergies Active Allergy Reactions Criticality Noted Date [...] nasal solution (FLONASE)Indicatio ns:Nasal obstruction Inhale 1 [place] into affected nostril(s) two times daily. 16 g 3 01/31/2024 Active traZODone (DESYREL) 50 mg tablet Administer 50 mg through feeding tube. 10/10/2023 Active durable medical equipment (DME)Indications:G astrojejunostomy tube status (HC) 12ml enteral syringe NeoMed with ENFIT CONNECTOR 6 Each 03/19/2024 Active durable medical equipment (DME)Indications:O n tube feeding diet [facility] feed bag Ref# [id number] 30 Each 11 03/27/2024 Active escitalopram oxalate [...] sexual activity. 10 Tablet 11 08/05/2024 Active promethazine-codei ne (PHENERGAN WITH CODEINE) 6.25-10 mg/5 mL syrupIndications:Shanelle spivey,Post-viral cough syndrome Take 5 mL by mouth every 4 hours if needed for Cough. 473 mL 08/09/2024 Active tadalafiL (CIALIS) 5 mg tabletIndications: Peyronie's [...] Description 08/05/2024 2:15 PM CDT Office Visit [facility] [address] [place] [address] Sandy Matta DO Medicare ANNUAL (subsequent) Visit (68 yr); Immunization/Inject ion 08/05/2024 Travel 07/25/[address] [facility] Scanner 1 scan: (1-Ord) [facility], CHEST 2V, 07/25/2024 07/25/[address] [facility] Scanner 1 scan: (1-Ord) [place], XR ABDOMEN 1V, 07/25/2024 07/24/2024 11:30 AM CDT Ancillary Procedure [facility] [address] [place] [address] 07/24/2024 10:40 AM CDT Office Visit [facility] [address] [place] [address] Sandy Matta DO Vomiting; Medication Management (augmentin) 07/24/2024 Travel 07/24/2024 Telephone [facility] [address] [place] [address] Sandy Matta DO FYI (Complications) 07/14/2024 Travel 07/05/2024 1:50 PM CDT Office Visit [facility] [address] [place] [address] Sandy Matta DO Medication Management (lexapro is helping) 07/05/2024 Travel 07/02/2024 Travel 06/03/2024 Telephone [facility] [address] [place] [address] Sandy Matta DO Home Care 06/03/2024 Patient Outreach [facility] [address] [place] [address] Sandy Matta DO Home Care 05/30/2024 1:28 PM CDT - 05/30/2024 11:59 PM CDT Hospital Encounter [address] [address] Sandy Matta DO Tierney, Doreen A, FLOR 05/30/2024 Travel 05/23/2024 2:14 PM CDT - 05/23/2024 11:59 PM CDT Hospital Encounter [address] [place] [address] Sandy Matta DO Tierney, Doreen A, SLP 05/23/2024 Travel 05/21/2024 2:12 PM CDT - 05/21/2024 11:59 PM CDT Hospital Encounter [address] [place] [address] Sandy Matta DO Tierney, Doreen A, SLP 05/21/2024 Travel 05/13/2024 2:24 PM CDT - 05/13/2024 11:59 PM CDT Hospital Encounter [address] [address] Sandy Matta DO Tierney, Doreen A, SLP 05/13/2024 11:00 AM CDT Ancillary Procedure [facility] [address] [place] [address] 05/13/2024 10:35 AM CDT Office Visit [facility] [address] [place] [address] Odessa Turner [facility] F/U (1 week follow up - still feeling sob / hard to catch breathe, feeling tired, queasy ) 05/13/2024 Travel 05/10/2024 12:59 PM CDT - 05/10/2024 11:59 PM CDT Hospital Encounter [address] [address] Sandy Matta DO Tierney, Doreen A, SLP 05/10/2024 Travel from Last 3 Months Immunizations Name Administration Dates Next Due AMB Influenza, IIV3 (Age >=3 years)(Flu Clinic Only) 08/07/2013,10/21/2009,09/05/2008 AMB Influenza, IIV4 PF (=>6 mos Flulaval,Fluzone Fluarix)(Flu Clinic Only) 08/04/2020,08/15/2019,07/31/2014 COVID-19 vaccine (Moderna 100mcg/0.5mL) PF, MDV 01/24/2021,12/29/2020 COVID-19 vaccine ([place] 30mcg/0.3mL) PF, MDV 10/11/2021 Influenza A (H1N1), [...] Sex Assigned at Male 10/03/2020 9:54 PM UTILITY BILL COLLECTOR Gender Identity Not on file Sexual Orientation [...] polyps ANTI HCV Routine 12/07/2015 8:46 AM UTILITY BILL COLLECTOR Need for hepatitis C screening test from [...] For Patients: ??As a result of the Century Cures Act, medical imaging exams and procedure [...] For Patients: As a result of the Century Cures Act, medical imagingexams and procedure reports [...] @ 07/24/2024 2:24:56 PM (Electronically Signed) Sandy Milenadavid Matta DO GENERAL IMAGING * (ABNORMAL) LIPID PANEL W REFLEX MEASURED LDL (06/07/2023 2:09 PM CDT) CHOLESTEROL,TOTAL 228(H) 100 - 199 mg/dL 06/08/2023 12:14 AM CDT [facility] [employer] Comment: Cholesterol, Total Reference Ranges Desirable <200 mg/dL Borderline 200-239 mg/dL High >=240 mg/dL TRIGLYCERIDES 132 <150 mg/dL 06/08/2023 12:14 AM CDT [facility] [employer] [facility] HDL CHOLESTEROL 72 >40 mg/dL 12:14 AM CDT [employer] NON-HDL CHOLESTEROL 156(H) <145 mg/dl 06/08/2023 12:14 AM CDT [facility] [employer] [facility] CHOL/HDL RATIO 3.17 <4.50 06/08/2023 12:14 AM CDT [facility] [employer]-[facility] LDL CHOLESTEROL 130 <=130 mg/dL 06/08/2023 12:14 AM CDT [facility] VLDL CHOLESTEROL 26 <=30 mg/dL 06/08/2023 12:14 AM CDT [facility] [employer] PROVIDER ORDERED STATUS RANDOM 06/08/2023 12:14 AM CDT [facility] [employer] Blood BLOOD SPECIMEN / Unknown Venipuncture / Unknown 06/07/2023 2:09 PM CDT 06/07/2023 2:09 PM CDT Sandy Matta DO CHEMISTRY [facility] [address] [place] [address], * COLONOSCOPY SCREENING (06/14/2021 12:00 AM CDT) Sandy Matta DO GI PROCEDURE ORD * ANTI HCV [83182.2] (12/07/2015 8:46 AM UTILITY BILL COLLECTOR) HEPATITIS C ANTIBODY Non-Reacti ve Non-Reacti ve 12/07/2015 1:24 PM UTILITY BILL COLLECTOR [facility] Blood specimen (specimen) BLOOD SPECIMEN / Unknown Venipuncture / Unknown 12/07/2015 8:46 AM UTILITY BILL COLLECTOR 12/07/2015 8:46 AM UTILITY BILL COLLECTOR Narrative [facility] - 12/07/2015 1:24 PM UTILITY BILL COLLECTOR Antibodies to HCV not detected; does not exclude the possibility of exposure to HCV. Sandy Matta DO SEND OUTS Performing Organization Address City/[facility]/ZIP Co de Phone Number [facility] [address] [place] [address], from Last 3 Months or Most Recently Relevant to Health Maintenance Advance Directives * Full Code (Latest Code Status on File) Date Activated Date Inactivated Comments 09/18/2013 12:03 AM 09/19/2013 1:12 PM Care Teams Manager Android Relationship Specialty Start Date End Date [place] [address] [place] [address] PCP - General Family Practice 11/12/15
--- OUTSIDE RECORDS SUMMARY | 2024-08-09 11:41 | XMS_ITS | Encounter Summary ---
Author Organization [facility] Address [address] [place] [address] Care Team Providers Care Lift Team Technician Name Role Phone Elsewhere, Pcp Primary Care Provider Unavailabl e Reason for Visit * Reason Onset Date Comments Previsit Preparation 05/02/2024 DEBORAH DD Encounter Details Date Type Department Care Team (Latest Contact Info) Description 05/02/2024 9:00 AM CDT Clinical Communication Virtual Review in [place], [place] [address] [place] [address] Previsit Preparation (DEBORAH DD) Social History Tobacco Use Types Packs/Day Years Used Date Smoking Tobacco: Former Cigarettes Smokeless Tobacco: Never Tobacco Cessation:Counseling Given: Not Answered Alcohol Use Standard Drinks/Week Comments Not Currently 0 (1 standard drink = 0.6 oz pur e alcohol) [facility] Utilities Answer Date Recorded In the [...] CDT Comprehensive Visit Department of Neurology in [place], [place] 200 [place] [address] Cristiane Palacio, GRUPO, C.N.P., D.N.P. 200 [place] [address] Kriss Wharton M.S., [facility] [address] [place] [phone] 08/15/2024 9:00 AM CDT Appointment Department of Radiology, [facility], in [place], [place] [address] [place] [phone] Cristiane Palacio APRN C.N.P., D.N.P. [address] [place] [phone] Kriss Wharton M.S., [facility] [address] [place] [phone] 08/15/2024 9:45 AM CDT Clinical Support Department of Neurology in [place], [place] [address] [place] [phone] Cristiane Palacio APRN, C.N.P., D.N.P. [address] [place] [phone] Kriss Wharton M.S., [facility] [address] [place] [phone] 08/15/2024 1:00 PM CDT Office Visit Department of Otorhinolaryngology in [place], [place] [address] [place] [phone] Rafal Rankin M.D. [address] [place] [phone] 08/15/2024 2:30 PM CDT Ancillary Procedure Department of Ophthalmology in [address] [phone] Kandace Shankar M.D. [address] [place] [phone] 08/15/2024 3:00 PM CDT Comprehensive Visit Department of Ophthalmology in [place], [place] [address] [place] [phone] Peña Carver M.D. [address] [place] [phone] 08/15/2024 4:15 PM CDT Office Visit Department of Ophthalmology in [place], [place] [address] [place] [phone] Kandace Shankar M.D. [address] [place] [phone] 08/20/2024 3:00 PM CDT Appointment Division of Gastroenterology in [place], [place] [address] [place] [phone] Cristiane Palacio, GRUPO, C.N.P., D.N.P. [address] [place] [phone] 08/22/2024 4:20 PM CDT Telemedicine Division of Gastroenterology in [place], [place] [address] [place] [phone] Swapnil Jaramillo M.D. [address] [place] [phone] 10/22/2024 8:30 AM SLIP COVER OPERATOR Clinical Communication Virtual Review in [place], [place] 200 [place] [address] 10/25/2024 10:30 AM SLIP COVER OPERATOR Comprehensive Visit Department of Neurology in [place], [place] [address] [place] [phone] Oziel Odonnell M.D. [address] [place] [phone] documented as of this encounter Visit Diagnoses Not on filedocumented in this encounter Care Teams Lift Team Technician Relationship Specialty Start Date End Date Elsewhere, Pcp PCP - General Internal Medicine 02/26/24 documented as of this encounter
--- OUTSIDE RECORDS SUMMARY | 2024-08-09 11:41 | XMS_ITS | Encounter Summary ---
Author Organization [facility] Address [address] [place] [address] Care Team Providers Care Accountant Manager Name Role Phone Elsewhere, Pcp Primary Care Provider Unavailabl e Encounter Details Date Type Department Care Team (Latest Contact Info) Description 05/03/2024 4:17 PM CDT - 05/03/2024 11:59 PM CDT Hospital Encounter Department of Laboratory Medicine and Pathology, [facility] in [place], [place] [address] [place] [address] Stan Hernandez M.D. Dysphagia; Diarrhea; Heartburn Discharge Disposition: Home or Self Care Social History Tobacco Use Types Packs/Day Years Used Date Smoking Tobacco: Former Cigarettes Smokeless Tobacco: Never Alcohol Use Standard Drinks/Week Comments Not Currently 0 (1 standard drink = 0.6 oz pur e alcohol) [facility] Utilities Answer Date Recorded In the [...] situation today? I have a [facility] place to live 03/12/2024 Sex and [...] 1 each daily. durable medical equipment (DME). Pain Doctor feed bag Ref# [id number]. Change bag every 24 hours. 03/27/2024 UNABLE [...] CDT Comprehensive Visit Department of Neurology in [place], [place] 200 [place] [phone] Cristiane Palacio, GRUPO, C.N.P., D.N.P. [address] [place] [phone] Kriss Wharton M.S., [facility]-ASSURANCE ASSISTANT 200 [place] [phone] 08/15/2024 9:00 AM CDT Appointment Department of Radiology, [facility], in [place], [place] [address] [place] [phone] Cristiane Palacio APRN C.N.P., D.N.P. [address] [place] [phone] Kriss Wharton M.S., [facility]-ASSURANCE ASSISTANT [address] [place] [phone] 08/15/2024 9:45 AM CDT Clinical Support Department of Neurology in [place], [place] [address] [place] [phone] Cristiane Palacio APRN, C.N.P., D.N.P. [address] [place] [phone] Kriss Wharton M.S., [facility]-ASSURANCE ASSISTANT [address] [place] [phone] 08/15/2024 1:00 PM CDT Office Visit Department of Otorhinolaryngology in [address] [phone] Rafal Rankin M.D. [address] [place] [phone] 08/15/2024 2:30 PM CDT Ancillary Procedure Department of Ophthalmology in [address] [phone] Kandace Shankar M.D. [address] [place] [phone] 08/15/2024 3:00 PM CDT Comprehensive Visit Department of Ophthalmology in [address] [phone] Peña Carver M.D. [address] [place] [phone] 08/15/2024 4:15 PM CDT Office Visit Department of Ophthalmology in [place], [place] [address] [place] [phone] Kandace Shankar M.D. [address] [place] [phone] 08/20/2024 3:00 PM CDT Appointment Division of Gastroenterology in [place], [place] [address] [place] [phone] Cristiane Palacio, NETWORK CONTROL SUPERVISOR, C.N.P., D.N.P. [address] [place] [phone] 08/22/2024 4:20 PM CDT Telemedicine Division of Gastroenterology in [place], [place] [address] [place] [phone] Swapnil Jaramillo M.D. [address] [place] [phone] 10/22/2024 8:30 AM MICROARRAY SPECIALIST Clinical Communication Virtual Review in [place], [place] 200 [place] [phone] 10/25/2024 10:30 AM MICROARRAY SPECIALIST Comprehensive Visit Department of Neurology in [place], [place] [address] [place] [phone] Oziel Odonnell M.D. [address] [place] [phone] documented as of this encounter Procedures Procedure [...] M.D. LAB MICROBIOLOG Y - GENERAL ORDERABLES [address] [address], [facility] DTL [facility] 200 [place] [address] documented in this encounter Visit Diagnoses Diagnosis Dysphagia Diarrhea Heartburn documented in this encounter Care Teams Accountant Manager Relationship Specialty Start Date End Date Elsewhere, Pcp PCP - General Internal Medicine 02/26/24 documented as of this encounter
--- OUTSIDE RECORDS SUMMARY | 2024-08-09 11:41 | XMS_ITS | Encounter Summary ---
Author Organization [facility] Address [address] [place] [address] Care Team Providers Care Ice Handler Name Role Phone Elsewhere, Pcp Primary Care Provider Unavailabl e Reason for Visit * Reason Comments Scheduling Encounter Details Date Type Department Care Team (Late st Contact Info) Description 05/09/2024 Documentation Division of Endocrinology in [place], [place] [address] [place] [phone] Lesley Reis, R.N. [address] [place] [address] Scheduling Social History Tobacco Use Types Packs/Day [...] your living situation today? I have a [facility] place to live 03/12/2024 Sex and [...] He is currently followed by dietitians at [facility]. They will need to see the [facility] Dietitian, Nurse & Provider. Patient has not been seen by [facility] before. Requesting appointments 1st available. documented in this encounter Plan of Treatment Upcoming Encounters Date Type Department Care Team (Latest Contact Info) Description 08/15/2024 8:00 AM CDT Comprehensive Visit Department of Neurology in [address] [phone] Cristiane Palacio APRN, C.N.P., D.N.P. [address] [place] [phone] Kriss Wharton, M.Chris, [facility]-[address] [phone] 08/15/2024 9:00 AM CDT Appointment Department of Radiology, [facility], in [address] [phone] Cristiane Palacio APRN, C.N.P., D.N.P. [address] [place] [phone] Kriss Wharton, M.S., [facility]-[address] [phone] 08/15/2024 9:45 AM CDT Clinical Support Department of Neurology in [address] [phone] Cristiane Palacio APRN, C.N.P., D.N.P. [address] [place] [phone] Kriss Wharton M.SEidth, [facility]-[address] [phone] 08/15/2024 1:00 PM CDT Office Visit Department of Otorhinolaryngology in [place], [place] [address] [place] [phone] Rafal Rankin M.D. [address] [place] [phone] 08/15/2024 2:30 PM CDT Ancillary Procedure Department of Ophthalmology in [place], [place] [address] [place] [phone] Kandace Shankar M.D. [address] [place] [phone] 08/15/2024 3:00 PM CDT Comprehensive Visit Department of Ophthalmology in [place], [place] [address] [place] [phone] Peña Carver M.D. [address] [place] [phone] 08/15/2024 4:15 PM CDT Office Visit Department of Ophthalmology in [place], [place] [address] [place] [phone] Kandace Shankar M.D. [address] [place] [phone] 08/20/2024 3:00 PM CDT Appointment Division of Gastroenterology in [place], [place] [address] [place] [phone] Cristiane Palacio, GRUPO, C.N.P., D.N.P. [address] [place] [phone] 08/22/2024 4:20 PM CDT Telemedicine Division of Gastroenterology in [place], [place] [address] [place] [phone] Swapnil Jaramillo M.D. [address] [place] [phone] 10/22/2024 8:30 AM WINDING INSPECTOR Clinical Communication Virtual Review in [place], [place] [address] [place] [phone] 10/25/2024 10:30 AM WINDING INSPECTOR Comprehensive Visit Department of Neurology in [place], [place] [address] [place] [phone] Oziel Odonnell M.D. [address] [place] [phone] documented as of this encounter Visit Diagnoses Not on filedocumented in this encounter Care Teams Ice Handler Relationship Specialty Start Date End Date Elsewhere, Pcp PCP - General Internal Medicine 02/26/24 documented as of this encounter
--- OUTSIDE RECORDS SUMMARY | 2024-08-09 11:41 | XMS_ITS | Encounter Summary ---
Author Organization [facility] Address [address] [place] [address] Care Team Providers Care Plumbing Instructor Name Role Phone Elsewhere, Pcp Primary Care [...] 0.6 oz pur e alcohol) [facility] Utilities Answer Date Recorded In the past 12 months has e [employer], gas, oil, or water [employer] threatened to shut off services in your [...] living situation today? I have a [facility] place to live 03/12/2024 Sex [...] CDT Comprehensive Visit Department of Neurology in [place], [place] 200 [place] [phone] Cristiane Palacio, GRUPO, C.N.P., D.N.P. [address] [place] [phone] Kriss Wharton M.S., [facility]-DESULFURIZER MACHINE [address] [place] [phone] 08/15/2024 9:00 AM CDT Appointment Department of Radiology, [facility], in [place], [place] [address] [place] [phone] Cristiane Palacio APRN C.N.P., D.N.P. [address] [place] [phone] Kriss Wharton M.S., [employer]-DESULFURIZER MACHINE [address] [place] [phone] 08/15/2024 9:45 AM CDT Clinical Support Department of Neurology in [address] [phone] Cristiane Palacio APRN, C.N.P., D.N.P. [address] [place] [phone] Kriss Wharton M.S., CCC-DESULFURIZER MACHINE [address] [place] [phone] 08/15/2024 1:00 PM CDT Office Visit Department of Otorhinolaryngology in [address] [phone] Rafal Rankin M.D. [address] [place] [phone] 08/15/2024 2:30 PM CDT Ancillary Procedure Department of Ophthalmology in [address] [phone] Kandace Shankar M.D. [address] [place] [phone] 08/15/2024 3:00 PM CDT Comprehensive Visit Department of Ophthalmology in [place], [place] [address] [place] [phone] Peña Carver M.D. [address] [place] [phone] 08/15/2024 4:15 PM CDT Office Visit Department of Ophthalmology in [place], [place] [address] [place] [phone] Kandace Shankar M.D. [address] [place] [phone] 08/20/2024 3:00 PM CDT Appointment Division of Gastroenterology in [place], [place] [address] [place] [phone] Cristiane Palacio APRN, C.N.P., D.N.P. [address] [place] [phone] 08/22/2024 4:20 PM CDT Telemedicine Division of Gastroenterology in [place], [place] [address] [place] [phone] Swapnil Jaramillo M.D. [address] [place] [phone] 10/22/2024 8:30 AM ROTOPRINTER Clinical Communication Virtual Review in [place], [place] 200 [place] [phone] 10/25/2024 10:30 AM ROTOPRINTER Comprehensive Visit Department of Neurology in [place], [place] [address] [place] [phone] Oziel Odonnell M.D. [address] [place] [phone] documented as of this encounter Procedures Procedure [...] on filedocumented in this encounter Care Teams Plumbing Instructor Relationship Specialty Start Date End Date Elsewhere, Pcp PCP - General Internal Medicine 02/26/24 documented as of this encounter
--- OUTSIDE RECORDS SUMMARY | 2024-08-09 11:41 | XMS_ITS | Encounter Summary ---
Author Organization [facility] Address [address] [place] [address] Care Team Providers Care Jockey Agent Name Role Phone Elsewhere, Pcp Primary Care Provider Unavailabl e Encounter Details Date Type Department Care Team (Late st Contact Info) Description 05/07/2024 Orders Only Division of Gastroenterology in [place], [place] [address] [place] [address] Stan eHrnandez M.D. Social History Tobacco Use Types Packs/Day Years Used Date Smoking Tobacco: Former Cigarettes Smokeless Tobacco: Never Alcohol Use Standard Drinks/Week Comments Not Currently 0 (1 standard drink = 0.6 oz pur e alcohol) [facility] Utilities Answer Date Recorded In the past 12 months has e [employer], gas, oil, or water Jimmy Fair[employer] threatened to shut off services in your [...] your living situation today? I have a [facility] place to live 03/12/2024 Sex and Gender Information Value Date Recorded Sex Assigned at Male 03/12/2024 1:38 PM CDT Gender Identity Male 03/12/2024 1:38 PM CDT Sexual Orientation Straight 03/12/2024 1: 38 PM CDT documented as of this encounter Plan of Treatment Upcoming Encounters Date Type Department Care Team (Latest Contact Info) Description 08/15/2024 8:00 AM CDT Comprehensive Visit Department of Neurology in [place], [place] [address] [place] [phone] Cristiane Palacio, GRUPO, C.N.P., D.N.P. [address] [place] [address] Kriss Wharton M.S., [facility] [employer] [address] [place] [phone] 08/15/2024 9:00 AM CDT Appointment Department of Radiology, [facility], in [place], [place] [address] [place] [phone] Cristiane Palacio APRN, C.N.P., D.N.P. [address] [place] [address] Kriss Wharton M.S., [facility] [address] [place] [phone] 08/15/2024 9:45 AM CDT Clinical Support Department of Neurology in [address] [address] Cristiane Palacio APRN, C.N.P., D.N.P. [address] [place] [phone] Kriss Wharton M.S., [facility] [address] [place] [address] 08/15/2024 1:00 PM CDT Office Visit Department of Otorhinolaryngology in [address] [address] Rafal Rankin M.D. [address] [place] [address] 08/15/2024 2:30 PM CDT Ancillary Procedure Department of Ophthalmology in [place], [place] [address] [place] [phone] Kandace Shankar M.D. [address] [place] [phone] 08/15/2024 3:00 PM CDT Comprehensive Visit Department of Ophthalmology in [place], [place] [address] [place] [phone] Peña Carver M.D. [address] [place] [address] 08/15/2024 4:15 PM CDT Office Visit Department of Ophthalmology in [place], [place] [address] [place] [phone] Kandace Shankar M.D. [address] [place] [address] 08/20/2024 3:00 PM CDT Appointment Division of Gastroenterology in [place], [place] [address] [place] [phone] Cristiane Palacio, GRUPO, C.N.P., D.N.P. [address] [place] [address] 08/22/2024 4:20 PM CDT Telemedicine Division of Gastroenterology in [place], [place] [address] [place] [phone] Swapnil Jaramillo M.D. [address] [place] [phone] 10/22/2024 8:30 AM IMAGE ARCHIVIST Clinical Communication Virtual Review in [place], [place] [address] [place] [address] 10/25/2024 10:30 AM IMAGE ARCHIVIST Comprehensive Visit Department of Neurology in [place], [place] [address] [place] [phone] Oziel Odonnell M.D. [address] [place] [phone] documented as of this encounter Visit Diagnoses Not on filedocumented in this encounter Care Teams Jockey Agent Relationship Specialty Start Date End Date Elsewhere, Pcp PCP - General Internal Medicine 02/26/24 documented as of this encounter
--- NOTE | 2024-08-09 15:59 | PC.NURSE ---
Patient is alert and oriented, VSS. SBA to BR. IV's in FA SL and patent. Tube feedings started at 1230, running at 125mls/hr. Weaned down to 1 L NC. Patient tolerating well. J tube and G tube flushed inbetween meds and feedings with 120ml of free water. Patient Afebrile this shift.
[2024-08-09] MEDS: TRAZODONE HCL 50 MG TABLET G-TUBE (21:54)
[2024-08-09] MEDS: FLUTICASONE PROPIONATE NASAL 1 SPRAY NOSTRIL-B (21:54)
[2024-08-09] MEDS: FAMOTIDINE 20 MG TABLET G-TUBE (21:54)
[2024-08-10] VITALS (9 sets, daily range): BP systolic 110–146; BP diastolic 65–96; PULSE 90–97; RESP 18–22; TEMP 36.4–37; O2SAT 93–97
[2024-08-10] MEDS: ONDANSETRON 2 MG/ML inj 4 MG IVP ×2 (03:01→21:32)
[2024-08-10] MEDS: PROCHLORPERAZINE 25 MG SUPP PR (03:35)
[2024-08-10] MEDS: PIPERACILLIN/TAZOBACTAM 3.375 GM in 0.9 % SODIUM CHLORIDE Mini-bag 100 ML IVPB ×4 (03:36→21:31)
--- NOTE | 2024-08-10 06:45 | PC.NURSE ---
[phone]: Patient with moderate nausea on and off during shift. This is chronic. PRN medications administered with some relief. Patient independently uses Yankauer to suction secretions. 1 Lt O2 to maintain sats >90. Denies pain. Aerobika use encouraged. 0600 tube feeding not yet administered per patient request d/t nausea. Afebrile.
[2024-08-10] MEDS: ENOXAPARIN 40 MG/0.4 ML INJ SUBCUT (09:29)
[2024-08-10] MEDS: FLUTICASONE PROPIONATE NASAL 1 SPRAY NOSTRIL-B ×2 (09:29→21:23)
[2024-08-10] MEDS: FINASTERIDE 5 MG TABLET G-TUBE (09:29)
[2024-08-10] MEDS: ESCITALOPRAM 10 MG TABLET G-TUBE (09:29)
[2024-08-10] MEDS: PANTOPRAZOLE SODIUM 40 MG INJ IVP (09:29)
[2024-08-10] MEDS: FAMOTIDINE 20 MG TABLET G-TUBE ×2 (09:29→21:23)
[2024-08-10] MEDS: SODIUM CHLORIDE 0.9 % (FLUSH) 10 ML SYRINGE 5 ML IVF ×2 (09:30→21:23)
[2024-08-10 10:39] LABS: Basophils Absolute Auto 0.01 K/uL (0.00-0.30); Basophils Percent Auto 0.2 % (0.0-3.0); Hematocrit 36.7 % (37.0-53.0); Hemoglobin* 11.9 gm/dL (13.5-17.5); Immature Granulocytes Abs Auto 0.42 K/uL (0.00-0.30); Immature Granulocytes Pct Auto 7.2 %; Lymphocytes Percent Auto 8.7 % (20-44); Mean Corpuscular HGB Conc 32 gm/dL (32-36); Mean Corpuscular Hemoglobin 32 pg (26-34); Mean Corpuscular Volume 97 fL (80-100); Monocytes Percent Auto 1.4 % (0.0-11.0); Neutrophils Percent Auto 82.5 % (42.0-72.0); Platelet Count* 118 K/uL (140-440); RDW Coefficient of Variation % 12.4 % (11.5-15.5); Red Blood Count 3.78 m/uL (4.30-5.90); White Blood Count* 5.87 K/uL (4.50-11.00)
[2024-08-10 10:51] LABS: Chloride* 100 mmol/L (96-114)
[2024-08-10 10:52] LABS: Potassium* 3.7 mmol/L (3.6-5.1); Sodium* 136 mmol/L (135-149)
[2024-08-10 10:54] LABS: Creatinine* 0.6 mg/dL (0.5-1.5); Est. Creatinine Clearance* 72.94; Estimated Glomerular Filt Rate 105 ml/min
[2024-08-10 10:55] LABS: Blood Urea Nitrogen* 21 mg/dL (7-30); Calcium* 8.6 mg/dL (8.4-10.6); Carbon Dioxide* 33 mmol/L (20-32); Glucose* 162 mg/dL (60-115)
[2024-08-10 11:07] LABS: Anion Gap 3 mEq/L (7-15); Slide Review Reflex No
--- NOTE | 2024-08-10 17:31 | P.IMPN_ITS ---
Progress Note: A&P Assessment and plan (1) Acute hypoxic respiratory failure: Problem details: - Multifactorial due to aspiration pneumonia and covid. - Improving. Continue to wean oxygen as able. Currently on 1L NC. Anticiptate at least 1-2 more nights of inpatient care. Status: Acute (2) COVID-19: Problem details: - Continue dexamethasone. Started remdesivir 08/09/24. I do not think he needs b aricitinib at this time since oxygen needs are stable. Status: Acute (3) Recurrent aspiration pneumonia: Problem details: - Patient is high risk for aspiration at baseline. He already has a gastric tube and is chronically NPO, so there are no additional measures to prevent this. - Restarted tube feeds 08/09. Monitor for nausea, vomiting, aspiration. - Continue zosyn Status: Inactive (4) On tube feeding diet: Problem details: Continue normal tube feeding protocol, 14 hours daily. Elevate head of bed at all times, whether feeding or not TUBE FEEDS: Compleat Peptide 1.5 Start Time: 06:00 # hours/day: 14 CCs per hour: 125 Flush/Bolus Information: Formula through J tube. Meds through G tub. Free water flushes: 120 mL through J tube before and after feeding (BID) 120 mL through G tube before and after medications (TID) Additional 60 ML through G or J tube TID Status: Acute (5) Nausea: Problem details: Relatively persistent and continuous nausea associated with tube feedings, chronically. Slowing down tube feedings helps but he is unable to get adequate fluid and calories or unable to get a break at night if he slows the feedings too much. EGD earlier this year at [facility] showed esophagitis - Patient and think free water causes nausea. Will trial using a little less water for meds and more water through J tube. Status: Chronic (6) Swallowing difficulty: Problem details: Patient reports being unable to swallow anything, solid or liquid. Unable to swallow his own secretions. He spits them out or suctions them. He does tell me that he burps a lot. This may reflect some ability to swallow air. Continue with outpatient swallow therapy. Status: Chronic (7) Vomiting: Problem details: Patient has significant ongoing problems with nausea and vomiting. He has relatively persistent nausea. The triggers it seem to make this worse include J-tube feedings at are going into quickly and any attempt to give extra fluids through his G-tube cause nausea. This suggests a GI cause of nausea. He also seems to have problems with nausea when he gets up and walks around her moves his head too quickly suggesting and neurologic cause of nausea as well. He has felt that metoclopramide has helped in the past so we tried another course of treatment with low-dose metoclopramide. He will monitor to see which of his antiemetics seem more effective and better tolerated Status: Chronic Plan VTE prophylaxis with low dose enoxaparin. Subjective Time Seen by Provider: 10:30 Date Seen: 08/10/24 Interval history: Brown didn't sleep well last night. He was up using the bathroom a lot. He is sleepy today, but able to be awake and part of the conversation. His , Kerry, is here and we discussed his tube feeds and medications through his G and J tube. She noted that Joao has been hesitant to use his J tube for medications. He has been coughing up brown phlegm, no bright red blood or black. Exam Narrative: Exam Narrative: General: No acute distress. Awake, sleepy, but able to carry on a conversation without difficulty, oriented x3. Hoarse voice. No pallor. No jaundice. Tracheostomy scar visible on base of neck/upper chest. Oropharynx: Clear. Mucous membranes moist. Cardiovascular: Regular rate and rhythm. No murmurs, gallops, or rubs. Respiratory: Rhonchi, especially in lower lung [place]. Abdomen: GJ tube in place. No erythema or drainage at insertion site. Bowel sounds present. Soft, nondistended, nontender. Extremities: No pedal edema. Const: Vital Signs, click to edit/add: Vital Signs - 24 hr 08/09/24 19:00 08/10/24 00:31 08/10/24 00:53 Temperature 98.1 F 97.5 F L Pulse Rate 97 Pulse Rate [Left P ulse Oximeter] 88 95 Respiratory Rate 18 18 Blood Pressure [Ri ght Arm] 104/63 122/71 Pulse Oximetry 96 95 Oxygen Delivery Me thod Nasal Cannula Oxygen Flow Rate 1.0 08/10/24 01:44 08/10/24 03:06 08/10/24 07:00 Temperature 98.1 F Pulse Rate Pulse Rate [Left P ulse Oximeter] 95 94 Respiratory Rate 18 20 18 Blood Pressure [Ri ght Arm] 130/78 Pulse Oximetry 95 93 Oxygen Delivery Me thod Nasal Cannula Nasal Cannula Oxygen Flow Rate 1.0 1.0 08/10/24 07:00 08/10/24 07:00 08/10/24 07:00 Temperature 98.6 F Pulse Rate 96 Pulse Rate [Left P ulse Oximeter] 94 Respiratory Rate 18 18 Blood Pressure [Ri ght Arm] 146/85 H Pulse Oximetry 94 94 Oxygen Delivery Me thod Nasal Cannula Nasal Cannula Oxygen Flow Rate 1.0 1.0 08/10/24 11:00 Temperature 98.2 F Pulse Rate Pulse Rate [Left P ulse Oximeter] 96 Respiratory Rate 18 [facility] 110/70 Pulse Oximetry 95 Oxygen Delivery Me thod Nasal Cannula Oxygen Flow Rate 1.0 Labs Labs: Laboratory Results - last 24 hr 08/10/24 10:32 WBC 5.87 RBC 3.78 L Hgb 11.9 L Hct 36.7 L MCV 97 MCH 32 MCHC 32 RDW Coeff of Fernando 12.4 Plt Count 118 L Neut % (Auto) 82.5 H Lymph % (Auto) 8.7 L Hand % (Auto) 1.4 Eos % (Auto) 0.0 Baso % (Auto) 0.2 Neut # (Auto) 4.80 Lymph # (Auto) 0.50 L Hand # (Auto) 0.10 Eos # (Auto) 0.00 Baso # (Auto) 0.01 Abs Immat Gran (auto) 0.42 H Imm/Tot Granulo (auto) 7.2 Sodium 136 Potassium 3.7 Chloride 100 Carbon Dioxide 33 H Anion Gap 3 L BUN 21 Creatinine 0.6 Estimated Creat Clear 72.94 Estimated GFR 105 Glucose 162 H Calcium 8.6
[2024-08-10 17:55] LABS: C.Difficile Negative (Negative); CDIFFEPI 027 PRESUMPTIVE NEGATIVE (Negative)
[2024-08-10] MEDS: ACETAMINOPHEN INJ 1,000 MG/100 ML VIAL 400 MG IVPB (18:09)
--- NOTE | 2024-08-10 18:43 | PC.NURSE ---
Patient is alert and oriented, VSS. SBA to BR. IV's in FA SL and patent. Tube feedings started at 0815, running at 125mls/hr. Patient on 1 L NC. Patient tolerating well. J tube and G tube flushed in between meds and feedings with 120ml of free water in J tube and 60ml in G tube, patient tolerating well. Patient denies N/V/SOB, rates pain 2/10, PRN tylenol administered for Back pain and headache. Patient had 5 loose BM's, stool sample sent to lab to check C-Diff. Patient Afebrile this shift.
[2024-08-10] MEDS: TRAZODONE HCL 50 MG TABLET G-TUBE (21:23)
[2024-08-11] VITALS (7 sets, daily range): BP systolic 134–160; BP diastolic 92–99; PULSE 85–99; RESP 18–22; TEMP 36.6–37.4; O2SAT 87–98
[2024-08-11] MEDS: HYDROmorphone 0.5 mg/0.5 ml inj IVP (02:25)
[2024-08-11] MEDS: SODIUM CHLORIDE 0.9 % (FLUSH) 10 ML SYRINGE 5 ML IVF ×3 (02:26→21:24)
[2024-08-11] MEDS: PIPERACILLIN/TAZOBACTAM 3.375 GM in 0.9 % SODIUM CHLORIDE Mini-bag 100 ML IVPB ×4 (04:35→21:24)
[2024-08-11] MEDS: METOCLOPRAMIDE HCL 5 MG/ML INJ IVP ×2 (06:04→20:27)
--- NOTE | 2024-08-11 06:12 | PC.NURSE ---
End of shift report [id number]: Alert and oriented x 4. Pain to low back and generalized pain well managed with current regimen. Patient tube feed completed at 2030. At 2114 life underwriter administered HS medications via g-tube, patient requested life underwriter to only use 30cc water before and after medication administration. Manufacturing Inspector administered 30cc flush, medications in 15cc of water and followed with a 30cc flush. Patient became nauseous and began vomited 100cc of thick light brown secretions within 2 minutes of medication administration, prn zofran administered and effective. Manufacturing Inspector updated Dr. Vargas with patient nausea a vomiting with small amount of water flush, new order for reglan BID PRN. Manufacturing Inspector updated patient. Denies any chest pain. Shortness of breath reported with ambulation and at rest, patient O2 sats 96% on room air but patient placed oxygen on due to feeling short of breath. Intermittent cough continues, lung sounds coarse in bilateral lower lobes.
[2024-08-11] MEDS: ACETAMINOPHEN INJ 1,000 MG/100 ML VIAL 400 MG IVPB (06:20)
[2024-08-11 07:32] LABS: Basophils Absolute Auto 0.02 K/uL (0.00-0.30); Basophils Percent Auto 0.3 % (0.0-3.0); Eosinophils Absolute Auto 0.01 K/uL (0.00-0.50); Eosinophils Percent Auto 0.2 % (0.0-7.0); Hematocrit 38.2 % (37.0-53.0); Hemoglobin* 11.9 gm/dL (13.5-17.5); Immature Granulocytes Abs Auto 0.02 K/uL (0.00-0.30); Immature Granulocytes Pct Auto 0.3 %; Lymphocytes Percent Auto 9.8 % (20-44); Mean Corpuscular HGB Conc 31 gm/dL (32-36); Mean Corpuscular Hemoglobin 31 pg (26-34); Mean Corpuscular Volume 99 fL (80-100); Monocytes Percent Auto 4.7 % (0.0-11.0); Neutrophils Percent Auto 84.7 % (42.0-72.0); Platelet Count* 143 K/uL (140-440); RDW Coefficient of Variation % 12.5 % (11.5-15.5); Red Blood Count 3.86 m/uL (4.30-5.90); White Blood Count* 6.65 K/uL (4.50-11.00)
[2024-08-11 07:34] LABS: Slide Review Reflex No
[2024-08-11 07:48] LABS: Chloride* 100 mmol/L (96-114); Potassium* 3.9 mmol/L (3.6-5.1); Sodium* 138 mmol/L (135-149)
[2024-08-11 07:50] LABS: Creatinine* 0.5 mg/dL (0.5-1.5); Est. Creatinine Clearance* 71.49; Estimated Glomerular Filt Rate 111 ml/min
[2024-08-11 07:51] LABS: Anion Gap 3 mEq/L (7-15); Blood Urea Nitrogen* 21 mg/dL (7-30); Calcium* 8.5 mg/dL (8.4-10.6); Carbon Dioxide* 35 mmol/L (20-32); Glucose* 163 mg/dL (60-115)
[2024-08-11] MEDS: PANTOPRAZOLE SODIUM 40 MG INJ IVP (09:46)
[2024-08-11] MEDS: FAMOTIDINE 20 MG TABLET G-TUBE ×2 (09:47→21:23)
[2024-08-11] MEDS: ESCITALOPRAM 10 MG TABLET G-TUBE (09:47)
[2024-08-11] MEDS: ENOXAPARIN 40 MG/0.4 ML INJ SUBCUT (09:47)
[2024-08-11] MEDS: FLUTICASONE PROPIONATE NASAL 1 SPRAY NOSTRIL-B ×2 (09:47→21:24)
[2024-08-11] MEDS: FINASTERIDE 5 MG TABLET G-TUBE (09:47)
--- NOTE | 2024-08-11 14:34 | PM.IMPN1 ---
Progress Note: A&P Assessment and plan (1) Acute hypoxic respiratory failure: Problem details: - Multifactorial due to aspiration pneumonia and covid. - Improving. Continue to wean oxygen as able. Currently off oxygen this afternoon. If he is able to stay off oxygen for the rest of today and tonight, then he may be able to go home tomorrow. Status: Acute (2) COVID-19: Problem details: - Continue dexamethasone and remdesivir. I do not think he needs baricitinib at this time since oxygen needs are stable. Status: Acute (3) Recurrent aspiration pneumonia: Problem details: - Patient is high risk for aspiration at baseline. He already has a gastric tube and is chronically NPO, so there are no additional measures to prevent this. - Restarted tube feeds 08/09. Monitor for nausea, vomiting, aspiration. - Continue zosyn and vibratory pep Status: Inactive (4) On tube feeding diet: Problem details: Continue normal tube feeding protocol, 14 hours daily. Elevate head of bed at all times, whether feeding or not TUBE FEEDS: Compleat Peptide 1.5 Start Time: 06:00 # hours/day: 14 CCs per hour: 125 Flush/Bolus Information: Formula through J tube. Meds through G tub. Free water flushes: 120 mL through J tube before and after feeding (BID) 120 mL through G tube before and after medications (TID) Additional 60 ML through G or J tube TID Status: Acute (5) Nausea: Problem details: Relatively persistent and continuous nausea associated with tube feedings, chronically. Slowing down tube feedings helps but he is unable to get adequate fluid and calories or unable to get a break at night if he slows the feedings too much. EGD earlier this year at [place] showed esophagitis - we tried metoclopramide b.i.d. since last night, but Vinh has not noticed much difference in amount of nausea. Patient and his note that he has an outpatient plan for ongoing workup through [place] for nausea. I think it likely has been worse during this hospital stay due to antibiotics and COVID-19 infection. Recommend continuing current measures. Status: Chronic (6) Vomiting: Problem details: Patient has significant ongoing problems with nausea and vomiting. He has relatively persistent nausea. The triggers it seem to make this worse include J-tube feedings at are going into quickly and any attempt to give extra fluids through his G-tube cause nausea. This suggests a GI cause of nausea. He also seems to have problems with nausea when he gets up and walks around her moves his head too quickly suggesting and neurologic cause of nausea as well. He has felt that metoclopramide has helped in the past so we tried another course of treatment with low-dose metoclopramide. He will monitor to see which of his antiemetics seem more effective and better tolerated Status: Chronic (7) Swallowing difficulty: Problem details: Patient reports being unable to swallow anything, solid or liquid. Unable to swallow his own secretions. He spits them out or suctions them. He does tell me that he burps a lot. This may reflect some ability to swallow air. Continue with outpatient swallow therapy. Status: Chronic Plan VTE prophylaxis with low dose enoxaparin. Time Spent With Patient Total time spent: Today I spent 25 minutes rounding on the patient. Greater than 50% included discussing care with the patient and his , team, reviewing data, updating and managing the care plan. Subjective Time Seen by Provider: 13:15 Date Seen: 08/11/24 Interval history: His , Kerry, is here with him today. Vinh is feeling better today. He still didn't sleep well last night, though. Yesterday and today he has coughed up copious amounts of yellow-brown phlegm, non-bloody. He complains of nausea, but nothing seems to make this better or worse. He occasionally vomits clear emesis. Exam Narrative: Exam Narrative: General: No acute distress. Awake, alert, oriented. Hoarse voice. Oropharynx: Clear. Mucous membranes moist. Cardiovascular: Regular rate and rhythm. No murmurs, gallops, or rubs. Respiratory: Rhonchi have resolved. Slight crackle in the right lower lung field, otherwise clear to auscultation bilaterally. Abdomen: GJ tube in place. No erythema or drainage at insertion site. Bowel sounds present. Soft, nondistended, nontender. Extremities: No pedal edema. Const: Vital Signs, click to edit/add: Vital Signs - 24 hr 08/10/24 15:00 08/10/24 15:00 08/10/24 15:00 Temperature Pulse Rate 96 Pulse Rate [Left P ulse Oximeter] 97 Respiratory Rate 18 18 Blood Pressure [Ri ght Arm] Pulse Oximetry 93 Oxygen Delivery Me thod Nasal Cannula Oxygen Flow Rate 1.0 08/10/24 15:00 08/10/24 19:00 08/10/24 23:00 Temperature 98.0 F 97.8 F Pulse Rate 91 Pulse Rate [Left P ulse Oximeter] 97 92 Respiratory Rate 18 22 Blood Pressure [Ri ght Arm] 125/87 133/65 Pulse Oximetry 93 97 Oxygen Delivery Me thod Nasal Cannula Nasal Cannula Oxygen Flow Rate 1.0 1 08/10/24 23:00 08/10/24 23:00 08/10/24 23:00 Temperature 98.4 F Pulse Rate Pulse Rate [Left P ulse Oximeter] 90 90 Respiratory Rate 20 20 20 Blood Pressure [Ri ght Arm] 139/96 H Pulse Oximetry 96 96 Oxygen Delivery Me thod Nasal Cannula Nasal Cannula Oxygen Flow Rate 1 1 08/11/24 03:00 08/11/24 07:00 08/11/24 07:00 Temperature 97.8 F Pulse Rate 99 Pulse Rate [Left P ulse Oximeter] 90 92 Respiratory Rate 22 18 Blood Pressure [Ri ght Arm] 160/99 H Pulse Oximetry 98 Oxygen Delivery Me thod Nasal Cannula Oxygen Flow Rate 1 08/11/24 07:00 08/11/24 07:00 08/11/24 11:00 Temperature 98.1 F 97.8 F Pulse Rate Pulse Rate [Left P ulse Oximeter] 92 95 Respiratory Rate 18 18 18 Blood Pressure [Ri ght Arm] 134/92 H 135/94 H Pulse Oximetry 95 95 94 Oxygen Delivery Me thod Room Air Room Air Room Air Oxygen Flow Rate 1 1 0.5 Labs Labs: Laboratory Results - last 24 hr 08/10/24 08/11/24 16:36 07:26 WBC 6.65 RBC 3.86 L Hgb 11.9 L Hct 38.2 MCV 99 MCH 31 MCHC 31 L RDW Coeff of Fernando 12.5 Plt Count 143 Neut % (Auto) 84.7 H Lymph % (Auto) 9.8 L [place] % (Auto) 4.7 Eos % (Auto) 0.2 Baso % (Auto) 0.3 Neut # (Auto) 5.60 Lymph # (Auto) 0.70 L [place] # (Auto) 0.30 Eos # (Auto) 0.01 Baso # (Auto) 0.02 Abs Immat Gran (auto) 0.02 Imm/Tot Granulo (auto) 0.3 Sodium 138 Potassium 3.9 Chloride 100 Carbon Dioxide 35 H Anion Gap 3 L BUN 21 Creatinine 0.5 Estimated Creat Clear 71.49 Estimated GFR 111 Glucose 163 H Calcium 8.5 Stl C. diff Tox B Gene Negative Stl C. diff [id number] PRESUMPTIVE NEGATIVE
[2024-08-11] MEDS: ONDANSETRON 2 MG/ML inj 4 MG IVP (17:20)
[2024-08-11] MEDS: TRAZODONE HCL 50 MG TABLET G-TUBE (21:23)
[2024-08-11] MEDS: LORazepam 0.5 MG TABLET G-TUBE (21:23)
[2024-08-11] MEDS: IPRAT-ALBUT 0.5-2.5 MG/3 ML NEB 1 NEB IH (21:23)
[2024-08-12 03:00] VITALS: BP 142/89; PULSE 91; RESP 22; TEMP 36.8; O2SAT 91
[2024-08-12] MEDS: PIPERACILLIN/TAZOBACTAM 3.375 GM in 0.9 % SODIUM CHLORIDE Mini-bag 100 ML IVPB ×2 (03:16→10:10)
--- NOTE | 2024-08-12 05:55 | PC.NURSE ---
End of shift report [id number]: Pleasant and cooperative with cares. Denies any pain this shift. At 210 patient reporting SOB and feeling air hunger, O2 sats 87% on room air. PRN duo neb administered with moderate relief of SOB, O2 sats continue to range 85-87%, oxygen applied at 1L and O2 sats increased to 91%. Patient reporting feeling nauseous, PRN reglan administered at 2030 and effective. 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 Requested sleep aid due to poor sleeping over the last several nights, he states that he has been unable to relax his mind. Updated Dr. Vargas with patient concern for sleep, new order for ativan PRN. Ativan administered at 2134, global technical writer reported feeling like he slept better than previous nights with use of ativan.
[2024-08-12 08:10] VITALS: BP 143/95; PULSE 89; RESP 18; TEMP 36.7; O2SAT 95
[2024-08-12] MEDS: ONDANSETRON 2 MG/ML inj 4 MG IVP (08:13)
[2024-08-12] MEDS: SODIUM CHLORIDE 0.9 % (FLUSH) 10 ML SYRINGE 5 ML IVF ×2 (08:13→10:11)
[2024-08-12 08:39] VITALS: RESP 18; O2SAT 95
[2024-08-12] MEDS: METOCLOPRAMIDE HCL 5 MG/ML INJ IVP (10:06)
[2024-08-12] MEDS: PANTOPRAZOLE SODIUM 40 MG INJ IVP (10:10)
[2024-08-12] MEDS: ENOXAPARIN 40 MG/0.4 ML INJ SUBCUT (10:11)
[2024-08-12] MEDS: FINASTERIDE 5 MG TABLET G-TUBE (10:12)
[2024-08-12] MEDS: FLUTICASONE PROPIONATE NASAL 1 SPRAY NOSTRIL-B (10:12)
[2024-08-12] MEDS: ESCITALOPRAM 10 MG TABLET G-TUBE (10:12)
[2024-08-12] MEDS: FAMOTIDINE 20 MG TABLET G-TUBE (10:12)
[2024-08-12 11:13] VITALS: RESP 14; O2SAT 94
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
[2024-08-12] MEDS: AMOXICILLIN/CLAVULANATE 875 mg/125 mg TABLET G-TUBE (12:19)
--- NOTE | 2024-08-12 15:21 | PC.NURSE ---
Pt pleasant, alert, oriented and vitally stable. Denies pain. Taken off 1 L of o2 and tolerates well. Patient reporting feeling nauseous, PRN Reglan administered before medications and effective. Discharge information given, topics including follow up and medications, to pt and . Discharged home with at 1446.?
== END 2024-08-12 14:46 | disposition home or self-care (01) | DRG 177 ==
LOC: ED 03:11 → MEDSURG 03:37
PROVIDERS: Family Medicine; Admitting Provider Student in an Organized Health Care Education/Training Program; Emergency Provider Internal Medicine; PCP Family Medicine; Visit Provider Student in an Organized Health Care Education/Training Program
DX: U07.1 COVID-19 (principal); J69.0 Pneumonitis due to inhalation of food and vomit; J96.01 Acute respiratory failure with hypoxia; D61.818 Other pancytopenia; Z87.891 Personal history of nicotine dependence; R13.10 Dysphagia, unspecified; Z93.1 Gastrostomy status; R11.2 Nausea with vomiting, unspecified
CPT/HCPCS: 36415; 36600; 71045; 80048; 82803; 83605; 84484; 85025; 85379; 87040; 87493; 87631; 93005; 94761; 97162; 97165; 99283; 99285; A9270; J0131; J0456; J1100; J1170; J1650; J2405; J2470; J2543; J2765; J7030; J7050

== ENCOUNTER 2024-09-07 16:48 | Observation (INO) | payer MEDICARE, BC, SELFPAY ==
[2024-09-07] VITALS (10 sets, daily range): BP systolic 96–155; BP diastolic 58–92; PULSE 83–90; RESP 18–24; TEMP 36.9–37.1; O2SAT 91–99; BMI 21.5
--- NOTE | 2024-09-07 17:20 | CRLHL7_ITS ---
For Patients: As a result of the Century Cures Act, medical imaging exams and procedure reports are released immediately into your electronic medical record. You may view this report before your referring provider. If you have questions, please contact your health care provider. INDICATION: Vomiting possible aspiration TECHNIQUE: Two view chest. Comparison x-ray 08/09/2024 FINDINGS: Normal cardiac and mediastinal silhouette. Basilar interstitial opacities which is decreased from the prior study. There is no acute pulmonary findings seen. No effusion or pneumothorax. IMPRESSION: Improved basilar mild interstitial opacities when compared to 08/09/2024 no acute pulmonary findings. Dictated by Kirstie Mendoza MD @ 09/07/2024 6:01:52 PM (Electronically Signed)
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
--- OUTSIDE RECORDS SUMMARY | 2024-09-07 17:29 | XMS_ITS | Encounter Summary ---
Author Organization [facility] Address [address] [place] [address] Care Team Providers Care Financial Adviser Name Role Phone JurgenTami OD Unavailable [phone] Sandy Matta MD Primary Care Provider [phone] Tami Seaman OD Unavailable [phone] Guy Yost MD Unavailable + [phone] Reason for Visit * Reason Onset Date Comments Previsit 07/16/2024 Encounter Details Date Type Department Care Team (Late st Contact Info) Description 07/16/2024 PRE VISIT [facility] [address] [phone] Elaina Cervantes MD [address] [place] [address] Previsit Social History Tobacco Use Types Packs/Day Years Used Date Smoking Tobacco: Never Assessed PHQ-2 Answer Date Recorded PHQ-2 Score 0 01/09/2024 Adolescent Education Answer Date Record ed Getting School Help Needed Not on file 09/21 Sex and Gender Information Value Date Recorded Sex Assigned at Not on file 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 [facility] verified. Records in [facility]. Higher priority referral being sent. Please send message when received. Please call [phone] Sandy Matta-PCP for more information RECORDS REQUESTED FROM: Clinic name Comments Records Status Imaging Status [facility] 01/26/24, 01/22/24- referral Sandy Matta MD 12/29/23, 12/12/23 - OV Ari Lopes MD More in [facility] Images: 02/14/24- XR Video Swallow 05/13/2024 XR chest [facility] 02/27/24- pending req PACS [facility] 02/14/24- Pending req 02/27/24- Received [facility] 10/09/23- XR Chest 10/02/23- XR Chest 10/01/23- XR Chest 09/29/23- XR Chest 09/19/23- CT Head 09/19/23- CT Spine 09/05/23- XR Chest 09/01/23- XR Chest 08/30/23- XR Chest 08/29/23- XR Chest [employer] [facility] [facility] 02/14/24- Pending req Disc received 02/22/24 [facility] 03/19/2024 OV with Rafal Rankin M.D. Imagin03/22/2024 FL SWALLOW [facility] Req 06/24/24 PACS June 24, 2024 10:51 AM - request to [facility] to push images to [facility] -Paola June 26, 2024 10:40 AM - Images received and resolved in PACS -Paola documented in this encounter Plan of Treatment Not on file documented as of this encounter Visit Diagnoses Not on filedocumented in this encounter Care Teams Financial Adviser Relationship Specialty Start Date End Date Sandy Matta MD [address] [place] [address] PCP - General Family Medicine 09/18/23 Tami Seaman, OD [address] [place] [id number] Optometry 09/18/23 Tami Seaman, OD [address] [place], [place] [id number] Assigned Surgical Provider 10/14/23 Guy Yost MD [address] [place] [address] Otolaryngology 01/22/24 documented as of this encounter
--- OUTSIDE RECORDS SUMMARY | 2024-09-07 17:29 | XMS_ITS | Encounter Summary ---
Author Organization [facility] Address [address] [place] [address] Care Team Providers Care Convention Services Manager Name Role Phone JurgenTami OD Unavailable [phone] Sandy Matta MD Primary Care Provider [phone] Tami Seaman OD Unavailable [phone] Guy Yost MD Unavailable [phone] Reason for Referral * Therapeutic Services (Routine: Next available opening) - Pending Review Specialty Diagnoses / Procedures Referred By Karine velasco Referred To Contact Diagnoses Dysphagia, oropharyngeal phase [facility] [address] [place] [address] Phone: tel: fax: Referral ID Status Reason Start Date Expiration Date V isits Requested Visits Authorized [id number] Pending Review 07/16/2024 07/16/2025 1 1 Question Answer Course of Action: Evaluation and Treatment Speech Treatment Diagnosis: Dysphagia Specialty Services: Clinical Swallow Study Scheduling Instructions: [facility] will call you to coordinate your care as prescribed by your provider. If you don't hear from a ocean import representative within 2 business days, please call . Additional Information: does not need to be scheduled Comments Please be aware that coverage of these services is subject to the terms and limitations of your health insurance plan. Call member services at your health plan with any benefit or coverage questions. [facility] will call you to coordinate your care as prescribed by your provider. If you don't hear from a ocean import representative within 2 business days, please call . Reason for Visit * Therapeutic Services (Routine: Next available opening) - Pending Review Specialty Diagnoses / Procedures Referred By Karine velasco Referred To Contact Diagnoses Dysphagia, oropharyngeal phase [facility] [address] [facility] 4th [place] [address] Phone: tel: fax: Referral ID Status Reason Start Date Expiration Date V isits Requested Visits Authorized [id number] Pending Review 07/16/2024 07/16/2025 1 1 Encounter Details Date Type Department Care Team (Latest Contact Info) Description 07/16/2024 3:30 PM CDT Therapy Visit [facility] [address] [facility] [address] [place] [address] Maryann Wilhelm Dysphagia, oropharyngeal phase (Primary Dx) Social History Tobacco Use Types Packs/Day Years Used Date Smoking Tobacco: Never Assessed PHQ-2 Answer Date Recorded PHQ-2 Score 0 01/09/2024 Adolescent Education Answer Date Record ed Getting School Help Needed Not on file 09/21 Sex and Gender Information Value Date Recorded Sex Assigned at Not on file 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 Maryann Wilhelm MS, CCC-SADDLE MAKER Speech-Language Pathology [facility] Department of Otolaryngology/D&T - 4th floor Email: documented in this encounter Plan of Treatment Scheduled Referrals Name Type Priority Associated Diagnoses Orde r Schedule Speech Therapy Biblical Languages Professor Referral Referral Routine: Next available opening Dysphagia, oropharyngeal phase Expected: 07/16/2024 (Approximate), Expires: 07/16/2025 documented as of this encounter Visit Diagnoses Diagnosis Dysphagia, oropharyngeal phase- Primary documented in this encounter Care Teams Convention Services Manager Relationship Specialty Start Date End Date Sandy Matta MD [address] [place] [address] PCP - General Family Medicine 09/18/23 Tami Seaman, OD [address] [place] [address] Optometry 09/18/23 Tami Seaman, OD [address] [place], [place] [phone] Assigned Surgical Provider 10/14/23 Guy Yost MD [address] [place] [address] Otolaryngology 01/22/24 documented as of this encounter
--- OUTSIDE RECORDS SUMMARY | 2024-09-07 17:29 | XMS_ITS | Referral Summary ---
Author Organization [facility] Address [address] [place] [address] Care Team Providers Care Rail Flaw Detector Operator Name Role Phone JurgenTami OD Unavailable [phone] Sandy Matta MD Primary Care Provider [phone] Tami Seaman OD Unavailable [phone] Guy Yost MD Unavailable + [phone] Encounters Date Type Department Care Team Description 07/19/2024 MyC Medical Advice [facility] Voice [address] [phone] Jeronimo Guido, FLOR 07/17/2024 MyC Medical Advice [facility] [address] [phone] Elaina Cervantes MD 07/16/2024 Travel 07/16/2024 3:30 PM CDT Therapy Visit [facility] Rehabilitation Services [address] [phone] Maryann Wilhelm Dysphagia, oropharyngeal phase (Primary Dx) 07/16/2024 PRE VISIT [facility] [address] [phone] Elaina Cervantes MD Previsit 07/16/2024 2:45 PM CDT Office Visit [facility] Voice [address] [phone] Sandy Matta MD Provider, Ent Dysphonia Plant Assigner Dysphonia (Primary Dx); Inspiratory stridor; Bilateral vocal fold paralysis 07/16/2024 2:45 PM CDT Office Visit [facility] [address] [place] [phone] Sandy Matta MD Gray, Raluca, MD Dysphonia (Primary Dx); Oropharyngeal dysphagia; 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 pics reviewed. Tolmetin Hives 07/12/2007 PN: LW Reaction: HIVES Medications NEXIUM 40 MG PACK 4 Active finasteride (PROSCAR) 5 MG tablet Take 1 tablet by mouth daily Active melatonin 3 MG tablet 6 mg by Enteral route 3 Active metoclopramide (REGLAN) 5 MG tablet 4 Active sodium chloride (OCEAN) 0.65 % nasal spray [place] 1-2 sprays in nostril 4 Active traZODone (DESYREL) 50 MG tablet 50 mg by Per G Tube route 3 Active tadalafil (CIALIS) 5 MG tablet Take 5 mg by mouth daily Active escitalopram (LEXAPRO) 5 MG/5ML solution TAKE 10 ML ONCE DAILY IN J- TUBE.* Active dexlansoprazole (DEXILANT) 30 MG CPDR CR capsule Take 30 mg by mouth. 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 Gender Identity Not on file Sexual Orientation [...] Procedure Name Priority Date/Time Associated Diagnosis Comments [place] [facility]AL[facility] VOICE AND RESONANCE Routine 07/23/2024 11:47 AM CDT Dysphonia Inspiratory stridor Bilateral vocal fold paralysis [place] LARYNGOSCOPY FLEX FIBEROPTIC, DIAGNOSTIC Routine 07/16/2024 3:47 PM CDT Oropharyngeal dysphagia IMAGESTREAM RECORDING ORDER Routine 07/16/2024 3:27 PM CDT Dysphonia from Last 3 Months Results * IMAGESTREAM RECORDING ORDER (07/16/2024 3:27 PM CDT) 07/16/2024 3:27 PM CDT Elaina Cervantes MD OTHER Edited Result - Final RADIOLOGY RESULTS from Last 3 Months Insurance MEDICARE [facility] [employer] MEDICARE [facility] [employer] Care Teams Rail Flaw Detector Operator Relationship Specialty Start Date End Date Sandy Matta [place] [address] PCP - General Family Medicine 09/18/23 Tami Seaman [place] [address] [place] [address] Optometry 09/18/23 Tami Seaman, OD [address] [place] [address] Assigned Surgical Provider 10/14/23 Guy Yost MD [address] [place] [address] Otolaryngology 01/22/24
--- OUTSIDE RECORDS SUMMARY | 2024-09-07 17:29 | XMS_ITS | Clinical Summary ---
Author Organization [facility] Address [address] [place] [address] Care Team Providers Care Shrimp Picker Name Role Phone JurgenTami OD Unavailable [phone] Sandy Matta MD Primary Care Provider [phone] Tami Seaman OD Unavailable [phone] Guy Yost MD Unavailable +- [phone] Allergies Active Allergy Reactions Criticality Noted Date [...] sodium chloride (OCEAN) 0.65 % nasal spray Belden 1-2 sprays in nostril 4 Active traZODone [...] directed per patient instruction card 21 tablet Active Active Problems No known active problems Encounters Date Type Department Care Team Description 07/19/[address] [facility] Voice [address] [phone] Jeronimo Guido, PLODDING MACHINE OPERATOR 07/17/[address] [facility] Ear Nose and Throat [address] [phone] Elaina Cervantes MD 07/16/2024 3:30 PM CDT Therapy Visit [facility] Rehabilitation Services [address] [phone] Maryann Wilhelm Dysphagia, oropharyngeal phase (Primary Dx) 07/16/2024 2:45 PM CDT Office Visit 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 Gender Identity Not on file Sexual Orientation [...] Additional history exists INFLUENZA VACCINE (#1) 2024 3, 07/22/2022, 07/22/2022, [...] RADIOLOGY RESULTS from Last 3 [place] [address] [place] [id number] [facility] [employer] MEDICARE [facility] [employer] Care Teams Shrimp Picker Relationship Specialty Start Date End Date Sandy Matta MD [address] [address] PCP - General Family Medicine 09/18/23 Tami Seaman, OD [address] [place], [place] [phone] Optometry 09/18/23 Tami Seaman, OD [address] [place] [address] Assigned Surgical Provider 10/14/23 Guy Yost MD [address] [place] [address] Otolaryngology 01/22/24
--- OUTSIDE RECORDS SUMMARY | 2024-09-07 17:29 | XMS_ITS | Encounter Summary ---
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 Gender Identity Not on file Sexual Orientation Not on file documented as of this encounter Plan of Treatment Not on file documented as of this encounter Visit Diagnoses Not on filedocumented in this encounter Care Teams Skeins Yarn Examiner Relationship Specialty Start Date End Date Sandy Matta MD [address] [place] [address] PCP - General Family Medicine 09/18/23 Tami Seaman OD [address] [place] [address] Optometry 09/18/23 Tami Seaman OD [address] [place] [address] Assigned Surgical Provider 10/14/23 Guy Yost MD [address] [place] [address] Otolaryngology 01/22/24 documented as of this encounter
--- OUTSIDE RECORDS SUMMARY | 2024-09-07 17:29 | XMS_ITS | Encounter Summary ---
Author Organization [facility] Address [address] [place] [address] Care Team Providers Care Steward/Stewardess Tourist Class Name Role Phone JurgenTami OD Unavailable [phone] Sandy Matta MD Primary Care Provider [phone] aTmi Seaman OD Unavailable [phone] Guy Yost MD Unavailable + [phone] Encounter Details Date Type Department Care Team (Late st Contact Info) Description 07/17/2024 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 Gender Identity Not on file Sexual Orientation Not on file documented as of this encounter Plan of Treatment Not on file documented as of this encounter Visit Diagnoses Not on filedocumented in this encounter Care Teams Steward/Stewardess Tourist Class Relationship Specialty Start Date End Date [place] [address] [address] PCP - General Family Medicine 09/18/23 Tami Seaman, OD [address] [place], [place] [address] Optometry 09/18/23 Tami Seaman, OD [address] [place], [place] [address]756[address] Assigned Surgical Provider 10/14/23 Guy Yost MD [address] [place], [place] [address] Otolaryngology 01/22/24 documented as of this encounter
--- OUTSIDE RECORDS SUMMARY | 2024-09-07 17:29 | XMS_ITS | Encounter Summary ---
Author Organization [place] Address [address] [place] [address] Care Team Providers Care Shorts Sifter Name Role Phone JurgenTami OD Unavailable [phone] Sandy Matta MD Primary Care Provider [phone] Tami Seaman OD Unavailable [phone] Guy Yost MD Unavailable + [phone] Encounter Details Date Type Department Care Team (Late st Contact Info) Description 07/16/2024 2:45 PM CDT Office Visit [facility] [address] 4[address] [place] [address] Sandy Matta MD [address] [place] [address] [place] [address] Provider, Rashard Ent Dysphonia Liquid Natural Gas Plant Operator Dysphonia (Primary Dx); Inspiratory stridor; Bilateral vocal fold paralysis Social History Tobacco Use Types Packs/Day Years Used Date Smoking Tobacco: Never Assessed PHQ-2 Answer Date Recorded PHQ-2 Score 0 01/09/2024 Adolescent Education Answer Date Record ed Getting School Help Needed Not on file 09/21 Sex and Gender Information Value Date Recorded Sex Assigned at Not on file 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 -Zacarias Guido M.M., M.A., [facility]-DISTRICT MEDICAL EXAMINER Speech-Language Pathologist Certificate of Vocology documented in this encounter Progress Notes * Jeronimo Guido SLP - 07/16/2024 2:45 PM CDT [facility] Evaluation report Clinician: Jeronimo Guido M.M., M.A., [facility]/DISTRICT MEDICAL EXAMINER Seen in conjunction with: Dr. Cervantes Patient: [...] SWALLOWING Please see my colleague Maryann Wilhelm CCC-DISTRICT MEDICAL EXAMINER's note from today's date for full details [...] please see Dr. Cervantes and Maryann Wilhelm, CCC-DISTRICT MEDICAL EXAMINER's notes from today's date for additional details [...] stressful 4 EAT-10 40 PERCEPTUAL EVALUATION (CPT 05347) POSTURE / TENSION: neck and shoulders BREATHING: [...] Dr. Cervantes and my colleague Bessie Wilhelm [facility]-DISTRICT MEDICAL EXAMINER's notes from today's date. Patient will be seen in the future as recommended by the physician. Certification period: Evaluation only This treatment plan was developed with the patient who agreed with the recommendations. TOTAL SERVICE TIME: 45 minutes EVALUATION OF VOICE AND RESONANCE (45576) NO CHARGE FACILITY FEE (18900) Jeronimo Guido M.M., M.A., [facility]-DISTRICT MEDICAL EXAMINER Speech-Language Pathologist Certificate of Vocology [phone] *this report was created in part through the use of computerized dictation software, and though reviewed following completion, some typographic errors may persist. If there is confusion regarding anyof this notes contents, please contact me for clarification.* documented in this encounter Plan of Treatment Not on file documented as of this encounter Procedures Procedure Name Priority Date/Time Associated Diagnosis Comments [facility]AL[facility]AT[facility] ANALYS[facility] VOICE AND RESONANCE Routine 07/23/2024 11:47 AM CDT Dysphonia Inspiratory stridor Bilateral vocal fold paralysis documented in this encounter Visit Diagnoses Diagnosis Dysphonia- Primary Inspiratory stridor Stridor Bilateral vocal fold paralysis Bilateral complete paralysis of vocal cords or larynx documented in this encounter Care Teams Shorts Sifter Relationship Specialty Start Date End Date Sandy Matta MD [address] [place] [address] PCP - General Family Medicine 09/18/23 Tami Seaman, OD [address] [place] [address] [phone] Optometry 09/18/23 Tami Seaman, OD [address] [place] [address] 779155 Assigned Surgical Provider 10/14/23 Guy Yost MD [address] [place] [address] Otolaryngology 01/22/24 documented as of this encounter
--- OUTSIDE RECORDS SUMMARY | 2024-09-07 17:29 | XMS_ITS | Encounter Summary ---
Author Organization [facility] Address [address] [place] [address] Care Team Providers Care Hand Brim Ironer Name Role Phone JurgenTami OD Unavailable [phone] Sandy Matta MD Primary Care Provider [phone] Tami Seaman OD Unavailable [phone] Guy Yost MD Unavailable + [phone] Encounter Details Date Type Department Care Team (Late st Contact Info) Description 07/19/2024 [facility] Medical Advice [address] [address] Jeronimo Guido, [address] 5[address] Social History Tobacco Use Types Packs/Day Years Used Date Smoking Tobacco: Never Assessed PHQ-2 Answer Date Recorded PHQ-2 Score 0 01/09/2024 Adolescent Education Answer Date Record ed Getting School Help Needed Not on file 09/21 Sex and Gender Information Value Date Recorded Sex Assigned at Not on file 

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
--- OUTSIDE RECORDS SUMMARY | 2024-09-07 17:30 | XMS_ITS | Encounter Summary ---
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
--- OUTSIDE RECORDS SUMMARY | 2024-09-07 17:30 | XMS_ITS | Encounter Summary ---
Author Organization [facility] Address [address] [place] [address] Care Team Providers Care Receiving Associate Store Name Role Phone Elsewhere, Pcp Primary Care Provider Unavailabl e Encounter Details Date Type Department Care Team (Late st Contact Info) Description 08/15/2024 Clinical Communication Division of General Internal Medicine in [place], [place] [address] [place] [address] Cristiane Palacio, GRUPO, C.N.P., D.N.P. [address] [place] [address] Social History Tobacco Use Types Packs/Day Years Used Date Smoking Tobacco: Former Cigarettes Q uit: 1984 Smokeless Tobacco: Never Alcohol Use Standard Drinks/Week Comments Not Currently 0 (1 standard drink = 0.6 oz pur e alcohol) [facility] Utilities Answer Date Recorded In [...] your living situation today? 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 [address] [place] [phone] Pam Hillman M.S., [facility] [address] [place] [phone] 10/01/2024 9:00 AM PAINTER HELPER SPRAY Appointment Department of Radiology, [facility], in [place], [place] [address] [place] [phone] Dillon Ozuna APRN, C.N.Romero., M.S. [address] [place] [phone] Pam Hillman M.S., [facility] [address] [place] [phone] 10/01/2024 9:45 AM PAINTER HELPER SPRAY Clinical Support Department of Neurology in [place], [place] [address] [place] [phone] Dillon Ozuna APRN, C.N.P., M.S. [address] [place] [phone] Pam Hillman, M.S., [facility] [address] [place] [phone] 10/01/2024 11:00 AM PAINTER HELPER SPRAY Office Visit Division of Endocrinology in [address] [phone] Dillon Ozuna APRN, C.N.P., M.S. [address] [place] [phone] 10/15/2024 3:15 PM PAINTER HELPER SPRAY Office Visit Department of Otorhinolaryngology in [place], [place] [address] [place] [phone] Rafal Rankin M.D. [address] [place] [phone] 10/22/2024 8:30 AM PAINTER HELPER SPRAY Clinical Communication Virtual Review in [place], [place] 200 [place] [address] 10/25/2024 10:30 AM PAINTER HELPER SPRAY Comprehensive Visit Department of Neurology in [place], [place] [address] [place] [phone] Oziel Odonnell M.D. [address] [place] [phone] 11/15/2024 11:15 AM PAINTER HELPER SPRAY Clinical Communication Virtual Review in [place], [place] [address] [place] [address] 11/18/2024 3:00 PM PAINTER HELPER SPRAY Ancillary Procedure Department of Ophthalmology in [place], [place] [address] [place] [phone] 11/18/2024 3:30 PM PAINTER HELPER SPRAY Office Visit Department of Ophthalmology in [place], [place] [address] [place] [phone] Peña Carver M.D. [address] [place] [phone] documented as of this encounter Visit Diagnoses Not on filedocumented in this encounter Care Teams Receiving Associate Store Relationship Specialty Start Date End Date Elsewhere, Pcp PCP - General Internal Medicine 02/26/24 documented as of this encounter
--- OUTSIDE RECORDS SUMMARY | 2024-09-07 17:30 | XMS_ITS | Encounter Summary ---
Author Organization [facility] Address [address] [place] [address] Care Team Providers Care Aircraft Engine Specialist Name Role Phone Elsewhere, Pcp Primary Care Provider Unavailabl e Encounter Details Date Type Department Care Team (Latest Contact Info) Description 08/23/2024 Clinical Communication Division of Gastroenterology in [place], [place] [address] [place] [address] Swapnil Jaramillo M.D. 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 - 08/23/2024 10:36 AM CDT CHIEF COMPLAINT / REASON FOR CALL Follow up Information Discussed A call was placed to the patient's , Kerry, with patient by her side to discuss the Dexilant prescription. I shared that I previously reached out to the [facility] last month and was told that the Dexilant can be opened and flushed down a NG tube that is greater than a 16 honduran. There is no liquid form available. I shared that we added the famotidine to the regimen at that time. Kerry shared that they were not aware that Dexilant could not be in a liquid form. I apologized for the lack of communication. Patient's understood and was thankful for the update. The original plan of care will be continued. PLAN Disposition/Recommendation: self-care is appropriate at this time, patient encouraged to call back with questions Information/Education: patient/caller able to teach back Caller agreeable to plan of care: yes The following references were used: other patient message dated 07/17/24 documented in this encounter Plan of Treatment Upcoming Encounters Date Type Department Care Team (Latest Contact Info) Description 10/01/2024 8:15 AM [employer] Comprehensive Visit Department of Neurology in [place], [place] [address] [place] [phone] Dillon Ozuna APRN, C.N.P., M.S. [address] [place] [phone] Pam Hillman M.S., [facility] [address] [place] [phone] 10/01/2024 9:00 AM [employer] [address] Appointment Department of Radiology, [facility], in [place], [place] [address] [place] [phone] Dillon Ozuna APRN, C.N.P., M.S. [address] [place] [phone] Pam Hillman M.S., [facility] [address] [place] [phone] 10/01/2024 9:45 AM [employer] Clinical Support Department of Neurology in [place], [place] [address] [place] [phone] Dillon Ozuna APRN, C.N.P., M.S. [address] [place] [phone] Pam Hillman M.S., [facility] [address] [place] [phone] 10/01/2024 11:00 AM [employer] Office Visit Division of Endocrinology in [address] [phone] Dillon Ozuna APRN, C.N.P., M.S. [address] [place] [phone] 10/15/2024 3:15 PM [employer] Office Visit Department of Otorhinolaryngology in [address] [phone] Rafal Rankin M.D. [address] [place] [phone] 10/22/2024 8:30 AM [employer] [address] Clinical Communication Virtual Review in [address] [phone] 10/25/2024 10:30 AM [employer] Comprehensive Visit Department of Neurology in [address] [phone] Oziel Odonnell M.D. [address] [place] [phone] 11/15/2024 11:15 AM [address] Clinical Communication Virtual Review in [address] [phone] 11/18/2024 3:00 PM [employer] [employer] Ancillary Procedure Department of Ophthalmology in [place], [place] [address] [place] [address] 11/18/2024 3:30 PM [employer] Office Visit Department of Ophthalmology in [place], [place] [address] [place] [address] Peña Carver M.D. [address] [place] [address] documented as of this encounter Visit Diagnoses Not on filedocumented in this encounter Care Teams Aircraft Engine Specialist Relationship Specialty Start Date End Date Elsewhere, Pcp PCP - General Internal Medicine 02/26/24 documented as of this encounter
--- OUTSIDE RECORDS SUMMARY | 2024-09-07 17:30 | XMS_ITS | Clinical Summary ---
Author Organization [facility] Address [address] [facility] [place] [address] Phone Care Team Providers Care 911 Emergency Dispatcher Name Role Phone Sandy Matta Primary Care Provider Allergies No known active allergies Medications acetaminophen (TYLENOL) 325 MG tablet 2 tablets (650 mg total) by PO/Per Tube route every 6 (six) hours as needed for mild pain or Temp > or equal to 101F (38.3C). 3 Active finasteride (PROSCAR) 5 MG tablet 1 tablet (5 mg total) by PO/Per Tube route daily with lunch. 90 tablet 3 3 Active lidocaine (LIDOCARE) 4 % patch patch Place 1 patch on the skin in the morning. 30 patch 2 3 Active melatonin tablet 2 tablets (6 mg total) by PO/Per Tube route nightly. 3 Active ondansetron ODT (ZOFRAN-ODT) 4 MG disintegrating tablet 1 tablet (4 mg total) by PO/Per Tube route every 6 (six) hours as needed for nausea or vomiting. 10 tablet 2 3 Active oxyCODONE (ROXICODONE) 5 MG immediate release tabletIndications:A cute Pain,Chronic Pain 1 tablet (5 mg total) by PO/Per Tube route nightly as needed for severe pain Indications: Acute Pain, Chronic Pain. Max Daily Amount: 5 mg 15 tablet 3 Active pantoprazole-sodium bicarbonate 2mg/ml enteral liquid 20 mL (40 mg total) by PO/Per Tube route every 12 (twelve) hours. 1200 mL 2 3 Active polyethylene glycol (MIRALAX) 17 g packet 17 g by PO/Per Tube route in the morning and 17 g before bedtime. Skip dose if having loose stools. 60 packet 11 3 Active senna 176 MG/5ML enteral syrup 15 mL (528 mg total) by PO/Per Tube route in the morning and 15 mL (528 mg total) before bedtime. Skip dose if having loose stools. 900 mL 11 3 Active silodosin (RAPAFLO) 4 MG capsule capsule 1 capsule (4 mg total) by PO/Per Tube route daily with lunch. 90 capsule 3 3 Active traZODone (DESYREL) 50 MG tablet 1 tablet (50 mg total) by PO/Per Tube route nightly. 90 tablet 3 3 Active Active Problems Problem Noted Date Diagnosed Date Acute hypoxemic respiratory failure 09/12/2023 Tracheostomy status 09/12/2023 Respiratory failure 08/29/2023 Immunizations Name Administration Dates Next Due H1N1 Inj 2009 Influenza (IM) Preservative Free 08/27/2008 Influenza Split High Dose Pr eservative Free IM 07/22/2022 Influenza TIV (IM) 08/19/2013, 3,08/27/2010,10/21,09/05/2008,09/06/2007,09/13/2006 ,09/21/2005,09/09/2003 Influenza, Quadrivalent 09/02/2021,08/04,08/15/2019,07/31 Influenza, Unspecified 08/24/2018,2016,08/22/2016,09/11,07/31/2014,08/19/2013,08/07/2013 ,08/27/2010,10/21/2009,09/05/2008,08/14,09/13/2006,09/21/2005, 3 Moderna SARS-CoV-2 Vaccination 01/24/2021,2020 Pfizer SARS-CoV-2 Vaccination 10/11/2021 Pneumococcal Conjugate 06/07/2023 Pneumococcal Polysaccharide 01/12/2022 TD Preservative Free 07/12/2007 Td 07/22/2022,11/13/1996 Tdap 08/14/2023,05/04/2012 Zoster 08/24/2018,06/15/2018,05/04/2012 Social History Tobacco Use Types Packs/Day Years Used Date Smoking Tobacco: Never Smokeless Tobacco: Never Tobacco Cessation:Counseling Given: Not Answered Sex and Gender Information Value Date Recorded Sex Assigned at Not on file Legal Sex Male 11:23 AM EDT Gender Identity Not on file Sexual Orientation Not on file Last Filed Vital Signs Vital Sign Reading Time Taken Comments Blood Pressure 134/82 10/09/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 Pulse 80 10/10/2023 8:00 AM INDUSTRIAL 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 INSTRUCTOR Temperature 36 ??C (96.8 ??F) 10/09/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 Respiratory Rate 18 10/10/2023 8:00 AM 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 INSTRUCTOR Oxygen Saturation 98% 10/10/2023 8:00 AM INDUSTRIAL TECH INSTRUCTOR Inhaled Oxygen Concentration - - Weight 87.8 kg (193 lb 9.6 oz) 10/04/2023 4:00 A M INDUSTRIAL TECH INSTRUCTOR Height 180.3 cm (5' 11) 08/29/2023 2:44 PM CDT Body Mass Index 27 08/29/2023 2:44 PM CDT Plan of Treatment Health Maintenance Due Date Last Done Comments CT Colonography 1955 Colonoscopy 1955 Colorectal Cancer Screening 1955 FIT-DNA (Cologuard) 1955 FIT 1955 FOBT 1955 Sigmoidoscopy 1955 Annual Visit Topic 1956 Pneumococcal Vaccine: 65+ Years (1 of 4 - PCV) 01/12/2023 DTaP/Tdap/Td Vaccines (5 - Td or Tdap) 08/14/2033 08/14/2023, 07/22/2022, 05/04/2012, Additional history exists HIB Vaccines Aged Out No longer eligi [...] have received informed consent. Yes Care Teams 911 Emergency Dispatcher Relationship Specialty Start Date End Date Sandy Matta [place] [address] PCP - General Family Medicine 08/30/23
--- OUTSIDE RECORDS SUMMARY | 2024-09-07 17:30 | XMS_ITS | Encounter Summary ---
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, sequela Recurrent aspiration pneumonia (H) Sandy Matta MD [address] [place] [address] Phone: tel: fax: Guy Yost MD [address] [place] [address] Phone: tel: fax: Referral ID Status Reason Start Date Expiration Date V isits Requested Visits Authorized [id number] Pending Review 01/23/2024 01/22/2025 1 1 Encounter Details Date Type Department Care Team (Late st Contact Info) Description 07/16/2024 2:45 PM CDT Office Visit [facility] [address] [place] [phone] Sandy Matta MD [address] [place] [address] Elaina Cervantes MD [address] [place] [address] Dysphonia (Primary Dx); Oropharyngeal dysphagia; Trauma to [...] on file 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 1. You were seen in the ENT Clinic today by Dr. Cervantes. If you have any questions or concerns after your appointment, please call [phone]. Press option #1 for scheduling related needs. Press option #3 for Nurse advice. 2. Dr. Cervantes has recommended the following: - Z-pack and medrol dose pack for breathing difficulties 3. Plan is to return to clinic as needed How to Contact Us: Send a GeoPalz message to your provider. Our team will respond to you via GeoPalz. Occasionally, wewill need to call you to get further information. For urgent matters (Monday-Monday, 8:00 AM-3:30 PM), call the ENT Clinic: [phone] and speak with a call center steamtable attendant railroad - they will route your call appropriately. If you'd like to speak directly with a nurse, please call [phone]. We do our best to check voicemail frequently throughout the day, and will work to call you back within 1-2 days. For urgent matters, please use the general clinic phone numbers listed above. Ivanna Cary [phone] [facility] - Otolaryngology documented in this encounter Progress Notes * Elaina Cervantes MD - 07/16/2024 3:30 PM CDT Images from the original note were not included. [facility] Otolaryngology Clinic Patient: Vinh Guillen : [...] in the past, recommend going back to [facility] to compare exams and decide how they want to proceed Plan - return to [place] to compare exams - abx/steroids for any breathing worsening RETURN VISIT: pending [place] discussion Referring Provider PCP: Sandy Matta Referring Physician: Sandy Matta MD [address] [place] [address] Reason for Consultation Dysphagia Dyspnea History HISTORY [...] sodium chloride (OCEAN) 0.65 % nasal spray, [place] 1-2 sprays in nostril, Disp: , Rfl: [...] Resource Strain: Low Risk (01/26/2024) Received from [facility], [facility] Financial Resource Strain Difficulty of Paying Living Expenses: 3 Difficulty of Paying Living Expenses: Not on file Food Insecurity: No Food Insecurity (03/12/2024) Received from [facility] Hunger Vital Sign Worried About Running Out of Food in the Last Year: Never true Ran Out of Food in the Last Year: Never true Transportation Needs: No Transportation Needs (03/12/2024) Received from [facility] PRAPARE - Transportation Lack of Transportation (Medical): No Lack of Transportation (Non-Medical): No Physical Activity: Inactive (03/12/2024) Received from [facility] Exercise Vital Sign Days of Exercise per Week: 0 days Minutes of Exercise per Session: 0 min Stress: Not on file Social Connections: Socially Integrated (01/26/2024) Received from [facility], [facility] Social Connections Frequency of Communication with Friends and Family: 0 Interpersonal Safety: Not At Risk (02/27/2024) Received from [facility] Humiliation, Afraid, Rape, and Kick questionnaire Fear of Current or Ex-Partner: No Emotionally Abused: No Physically Abused: No Sexually Abused: No Housing Stability: Low Risk (03/12/2024) Received from [facility] Housing Stability What is your [...] limits and noncontributory. Procedures Flexible laryngoscopy (CPT 50546) Pre-procedure diagnosis: dysphonia Post-procedure diagnosis: same as [...] hesitate to contact me. 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
--- OUTSIDE RECORDS SUMMARY | 2024-09-07 17:30 | XMS_ITS | Referral Summary ---
Author Organization [facility] Address [address] [place] [address] Care Team Providers Care Mining Manager Name Role Phone Elsewhere, Pcp Primary Care Provider Unavailabl e Source Comments Patient records contain information from all sites at [facility]. For routine questions regarding patient records, call [phone] during business hours, M-F 8:00 AM - 5:00 PM Central Time. Record requests for emergency care only can be directed to [phone] at any time.[facility] Encounters Date Type Department Care Team Description 08/23/2024 Clinical Communication Division of Gastroenterology in [place], [place] [address] [place] [address] Swapnil Jaramillo M.D. 08/22/2024 Clinical Communication Department of Ophthalmology in [place], [place] [address] [place] [address] Kandace Shankar M.D. 08/22/2024 4:20 PM CDT Telemedicine Division of Gastroenterology in [place], [place] [address] [place] [address] Swapnil Jaramillo M.D. Dysphagia Oropharyngeal Phase (Primary Dx) 08/20/2024 2:16 PM CDT - 08/20/2024 11:59 PM CDT Hospital Encounter Department of Radiology, [facility], in [place], [place] [address] [place] [phone] Cristiane Noel APRN, C.N.P., D.N.P. Discharge Disposition: Home or Self Care 08/20/2024 1:38 PM CDT - 08/20/2024 3:26 PM CDT Hospital Encounter Division of Gastroenterology in [place], [place] [address] [place] [phone] Cristiane Noel APRN, C.N.P., D.N.P. Geovanna Aguilar APRN, SONIA Dietary Counseling And Surveillance For Enteral Nutrition Discharge Disposition: Home or Self Care 08/15/2024 Orders Only Division of Endocrinology in [place], [place] [address] [place] [phone] Cristiane Noel APRN, C.N.P., D.N.P. Dysphagia (Primary Dx) 08/15/2024 Documentation Division of General Internal Medicine in [place], [place] [address] [place] [phone] Thania Ulloa, D., R.Ph. 08/15/2024 Clinical Communication Division of General Internal Medicine in [place], [place] [address] [place] [phone] Cristiane Noel APRN, C.N.P., D.N.P. 08/15/2024 1:00 PM CDT Office Visit Department of Otorhinolaryngology in [place], [place] [address] [place] [phone] Rafal Rankin M.D. 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 Kriss Wharton M.S., [facility] UTILITY WORKER Dysphagia 08/15/2024 4:15 PM CDT Office Visit Department of Ophthalmology in [address] Kandace Shankar M.D. Diplopia (Primary Dx) 08/15/2024 3:00 PM CDT Comprehensive Visit Department of Ophthalmology in [address] Peña Carver M.D. Esotropia (Primary Dx); Diplopia; Hyperopia Right; Palsy Fourth Nerve Right; Sixth Abducent Nerve Palsy Right Eye; Sixth Abducent Nerve Palsy Left Eye 08/14/2024 Clinical Communication Department of Nutrition and Diabetes Education in [address] Victoria Muir M.S., RDN, LD 08/13/2024 3:00 PM CDT Telemedicine Division of Endocrinology in [address] [phone] Cristiane Noel APRN, C.N.P., D.N.P. Naomi Huber APRN, C.N.P. Dietary Counseling And Surveillance For Enteral Nutrition; Dysphagia; Gastrojejunostomy Percutaneous Status Post 08/13/2024 2:00 PM CDT Telemedicine Department of Nutrition and Diabetes Education in [address] [phone] Cristiane Noel APRN, C.N.P., D.N.P. Victoria Muir M.S., RDN, LD Dietary Counseling And Surveillance For Enteral Nutrition (Primary Dx); Pneumonitis Due To Inhalation Of Food And Vomit (HCC); Gastrojejunostomy Percutaneous Status Post ; Dysphagia 08/12/2024 Orders Only Department of Nutrition and Diabetes Education in [address] [phone] Victoria Muir M.S., RDN, LD Dietary Counseling And Surveillance For Enteral Nutrition (Primary Dx); Dysphagia; Gastrojejunostomy Percutaneous Status Post 08/12/2024 Clinical Communication Division of General Internal Medicine in [place], [place] [address] [place] [phone] Cristiane Noel APRN, C.NTiffanie, D.N.P. Patient Question 08/06/2024 Clinical Communication Department of Otorhinolaryngology in [place], [place] [address] [place] [address] Rafal Rankin M.D. 08/06/2024 Orders Only Department of Otorhinolaryngology in [place], [place] [address] [place] [phone] Rafal Rankin M.D. 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 07/23/2024 1:12 PM CDT Anesthesia Event [facility] OR [address] [place] [phone] Tayo Bradford D.O. Higgins, Timon J, M.D. 07/23/2024 10:00 AM CDT - 07/23/2024 11:18 AM CDT Hospital Encounter Department of Radiology, [facility], in [address] [phone] Rafal Rankin M.D. Sialorrhea Discharge Disposition: Home or Self Care 07/23/2024 1:46 PM CDT - 07/23/2024 2:44 PM CDT Surgery [facility] [address] [place] [phone] Rafal Rankin M.D. INJECTION BOTOX TO SUBMANDIBULAR GLANDS 50 units total, 25 units into each gland, ULTRASOUND GUIDANCE. 07/23/2024 11:19 AM CDT - 07/23/2024 2:16 PM CDT Hospital Encounter [facility] [address] [place] [phone] Rafal Rankin M.D. Discharge Disposition: Home or Self Care 07/18/2024 1:20 AM CDT Ancillary Procedure Department of Otorhinolaryngology 07/18/2024 1:00 PM CDT Office Visit Department of Otorhinolaryngology in [place], [place] [address] [place] [address] Rafal Rankin M.D. 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 06/25/2024 9:00 AM CDT Telemedicine Department of Otorhinolaryngology in [place], [place] [address] [place] [phone] Rafal Rankin M.D. 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 Scheduling 06/18/2024 Orders Only Division of Endocrinology in [place], [place] [address] [place] [phone] Cristiane Noel, GRUPO, C.N.P., D.N.P. Dysphagia (Primary Dx) 06/18/2024 Orders Only Division of Endocrinology in [place], [place] [address] [place] [address] Ankit Medina R.N. Dietary Counseling And Surveillance For Enteral Nutrition (Primary Dx) 06/18/2024 Orders Only Department of Otorhinolaryngology in [place], [place] [address] [place] [address] Luz Muir R.N. Sialorrhea (Primary Dx) 06/18/2024 Clinical Communication Department of Otorhinolaryngology in [place], [place] [address] [place] [address] Rafal Rankin M.D. 06/18/2024 1:00 PM CDT Telemedicine Division of Endocrinology in [place], [place] [address] [place] [phone] Stan Hernandez M.D. McKay, Elisa C, APRN, C.N.PEdith, D.N.P. Dysphagia; Stenosis Laryngeal; Pneumonitis Due To Inhalation Of Food And Vomit (HCC) 06/18/2024 10:00 AM CDT Clinical Support Division of Endocrinology in [place], [place] [address] [place] [phone] Stan Hernandez M.D. Neldner, Indra K, REdithN. Dysphagia; Stenosis Laryngeal; Pneumonitis Due To Inhalation Of Food And Vomit (HCC) 06/18/2024 9:00 AM CDT Clinical Support Department of Nutrition and Diabetes Education in [place], [place] [address] [place] [phone] Stan Hernandez M.D. Johnson, Danelle A, M.SEdith, RDN, LD Dietary Counseling And Surveillance For Enteral Nutrition (Primary Dx); Dysphagia; Stenosis Laryngeal; Pneumonitis Due To Inhalation Of Food And Vomit (HCC); Gastrojejunostomy Percutaneous Status Post 06/17/2024 Orders Only Department of Otorhinolaryngology in [place], [place] [address] [place] [phone] Rafal Rankin M.D. from Last 3 Months Allergies Active Allergy Reactions Criticality Noted Date Comments Adhesive Tape-Silicones Blisters High 05/15/2024 New reaction as of 05/15/2024. Medium reaction. Sulfamethoxazole-Trim ethoprim Hives (Reselect Reaction),Itching,Christiano h,Swelling High 12/02/2023 whole body hives severe. pics reviewed. whole body hives severe. pics reviewed. Tolmetin Hives (Reselect Reaction) 07/12/2007 PN: LW Reaction: HIVES Medications * This document contains information received from the source organization and may not represent a complete record from that organization. acetaminophen (TYLENOL) 325 mg tablet Administer 650 [...] 1 each daily. durable medical equipment (DME). Therative feed bag Ref# [id number]. Change bag every 24 hours. 4 Active [...] a day. 450 mL 3 4 Active Active Problems Problem Noted Date Diagnosed [...] oz pur e alcohol) [facility] [employer] Answer Date Recorded In the past 12 months has [facility] [employer], gas, oil, or water [employer] threatened to shut off services in your [...] your living situation today? I have a [facility] place to live 03/12/2024 Sex and Gender Information Value Date Recorded Sex Assigned at Male 03/12/2024 1:38 PM CDT Legal Sex Male 8:[address] LIGHT SERVICER HELPER Gender Identity Male 03/12/2024 1:38 PM CDT [...] CDT Inhaled Oxygen Concentration - - Weight 72.1 kg (159 lb) 08/20/2024 2:23 PM CDT Height 182.9 cm (6') 08/20/2024 2:23 PM CDT Body Mass Index 21.56 08/20/2024 2:23 PM CDT Plan of Treatment Upcoming Encounters Date Type Department Care Team (Latest Contact Info) Description 10/01/2024 8:[address] LIGHT SERVICER HELPER Comprehensive Visit Department of Neurology in [place], [place] [address] [place] [address] Dillon Ozuna APRN, C.N.P., M.S. 200 [place] [address] Pam Hillman M.S., [place] [address] [place] [phone] 10/01/2024 9:[address] LIGHT SERVICER HELPER Appointment Department of Radiology, [facility], in [place], [place] [address] [place] [phone] Dillon Ozuna APRN, C.N.P., M.S. [address] [place] [phone] Pam Hillman MEdithS., [place] [address] [place] [phone] 10/01/2024 9:[address] LIGHT SERVICER HELPER Clinical Support Department of Neurology in [address] [phone] Dillon Ozuna APRN, Alfonso.N.P., M.S. [address] [place] [phone] Pam Hillman M.S., [address] [phone] 10/01/2024 11:[address] LIGHT SERVICER HELPER Office Visit Division of Endocrinology in [address] [phone] Dillon Ozuna APRN, C.N.P., M.S. [address] [place] [phone] 10/15/2024 3:[address] LIGHT SERVICER HELPER Office Visit Department of Otorhinolaryngology in [address] [phone] Rafal Rankin M.D. [address] [place] [phone] 10/22/2024 8:[address] LIGHT SERVICER HELPER Clinical Communication Virtual Review in [place], [place] 200 [place] [phone] 10/25/2024 10:[address] LIGHT SERVICER HELPER Comprehensive Visit Department of Neurology in [place], [place] [address] [place] [phone] Oziel Odonnell M.D. [address] [place] [phone] 11/15/2024 11:[address] LIGHT SERVICER HELPER Clinical Communication Virtual Review in [address] [phone] 11/18/2024 3:[address] LIGHT SERVICER HELPER Ancillary Procedure Department of Ophthalmology in [place], [place] [address] [place] [phone] 11/18/2024 3:[address] LIGHT SERVICER HELPER Office Visit Department of Ophthalmology in [place], [place] [address] [place] [phone] Peña Carver M.D. [address] [place] [phone] Procedures Procedure Name Priority Date/Time Associated Diagnosis Comments FL FLUORO LESS THAN 1 HOUR RAD - Routine (most inpatients and all outpatients) 08/20/2024 3:24 PM CDT Dietary Counseling And Surveillance For Enteral Nutrition NON-ENDOSCOPIC TUBE PROCEDURE Routine 08/20/2024 2:56 PM CDT Dietary Counseling And Surveillance For Enteral Nutrition EGD ? PERCUTANEOUS ENDOSCOPIC GASTROSTOMY/JEJUNOSTOMY Routine 08/20/2024 2:56 PM CDT Dietary Counseling And Surveillance For Enteral Nutrition SENSORY MOTOR EXAM Routine 08/15/2024 2:49 PM CDT Esotropia Hyperopia Right US GUIDANCE INTRAOPERATIVE RAD - Routine (most inpatients and all outpatients) 07/23/2024 1:42 PM CDT Sialorrhea INJECTION BOTOX 07/23/2024 12:56 PM CDT Sialorrhea Case Notes YOKE PRESSER at 11:23 OTORHINOLARYNGOLOGY IMAGE EXAM Routine 07/18/2024 1:20 AM CDT BASIC METABOLIC PANEL, S/P Routine 02/28/2024 12:21 AM CDT from Last 3 Months or Most Recently Relevant to Health Maintenance Results * FL Fluoro Less Than 1 Hour (08/20/2024 3:24 PM CDT) Narrative ERCP LOS RST - 08/20/2024 3:25 PM CDT This exam does not require a radiologist review or interpretation. Please refer to the patient's medical record on this date for clinical details. Cristiane Noel APRN, C.N.P., D.N.P. IMG FLUOROSCO PY PROCEDURES Final Result ERCP LOS RST * Non-Endoscopic Tube Procedure (08/20/2024 2:56 PM CDT) 08/20/2024 2:56 PM CDT Impressions [employer] - 08/20/2024 3:33 PM CDT Post-op Diagnoses: ? - The PEG-J tube had been in place for an extended length of time and ? was removed and replaced with an 18 Fr Avanos HOLLY PEG-J tube. ? - No specimens collected. Narrative [employer]ANERJEE [employer]OVATION - 08/20/2024 3:33 PM CDT Edilberto 6 GI GI Patient Name: Vinh Guillen Date of : 1955 Age: 68 Procedure Date: 08/20/2024 Procedure: ? Non-endoscopic Tube Procedure Providers: ? Juan Garrido MD, Guy W. Doc Iii ? (Fellow) Referring Provider: ?Cristiane Noel Pre-op Diagnoses: ?Routine exchange PEG-J tube Recommendation: ? - Repeat the procedure in 3-6 months to exchange the PEG-J tube. ? - Return to referring physician. Findings: ? The PEG-J tube required removal because it had been in place for an ? extended length of time. The existing PEG-J site was cleaned. An Amplatz ? guidewire was advanced through the existing tube. The tip of the ? guidewire was confirmed fluoroscopically to be in the proximal jejunum. ? The existing tube was removed while retaining the guidewire in position. ? The existing PEG-J balloon was deflated and by using traction, removal ? was accomplished without difficulty. An 18 Fr Avanos HOLLY PEG-J tube was ? lubricated and placed into the existing gastrostomy port over the ? guidewire. A total of 10 mL saline was used to distend the balloon that ? was previously tested and the guidewire was removed. When positioned, ? the skin marking was noted to be 4 cm at the external bumper. The final ? tension and compression of the abdominal wall by the PEG-J tube and ? external bumper were checked and revealed that the bumper was loose and ? lightly touching the skin. Placement into the proximal jejunum was ? confirmed using fluoroscopy with contrast instillation. The tube was ? capped, and the tube site was cleaned and dressed. Procedural Details: ? The patient was seen, evaluated, history reviewed, airway and heart-lung ? exams were performed by licensed provider and were satisfactory for ? planned level of sedation care. ? The risks, benefits and alternatives for the procedure and sedation were ? discussed and informed consent was obtained. A procedural pause was ? conducted in the presence of assisting personnel to verify the correct ? patient identity and procedure to be performed. The procedure was ? accomplished without difficulty. The patient tolerated the procedure ? well. Estimated Blood Loss: ?Minimal. Complications: ? No immediate complications. Sedation: ? No sedation administered. Attending Participation: I was present and participated during the entire ? procedure, including non-goldman portions. Juan Garrido MD 08/20/2024 3:33:28 PM Number of Addenda: 0 us Cristiane Noel APRN, C.N.P., D.N.P. GI PROCEDURE ORDERABLES Final Result Performing Organization Address [facility] Co de Phone Number [employer]EE [employer]ATION NA * Sensory Motor Exam (08/15/2024 2:49 PM CDT) Narrative OPHTHALMOLGY NON-IMAGING ORDERS - 08/15/2024 3:32 PM CDT I have reviewed the medical record and the sensorimotor exam documentation. The findings are consistent with my previously initiated care plan. I agree with the impression, plan, and follow up as entered by the set making machine operator. Peña Carver M.D. OPHTH TOMOGRAPHY Final Resul t Performing Organization Address [facility] de Phone Number OPHTHALMOL NON-IMAGING ORDERS * US Guidance Intraoperative (07/23/2024 1:42 PM [...] via the surgical team into each gland. us Rafal Rankin M.D. IMG US PROCEDURES Final Res ult * Otorhinolaryngology Image Exam-Otorhinolaryngology Image Exam (07/18/2024 1:20 AM CDT) Narrative [facility]IM[facility] - 07/18/2024 1:35 PM CDT This order has been created and auto-finalized to support the import of images acquired without order. The clinical documentation to support these images can be found on the encounter that produced images. us Provider Not In System IMG NON RAD IMAGING PROCE DURES Final Result [facility] NA * (ABNORMAL) Basic Metabolic Panel (02/28/2024 12:21 [...] Kiki Pham APRN, C.N.P., M.S.N. LAB BLOOD AD D-ON Final Result [facility] [address] [place] [address], [facility] [address] [place] [address] from Last 3 Months or Most Recently Relevant to [place] [address] MEDICARE [facility] Advance Directives For more information, please contact: [phone] Documents on File Type Date Recorded Patient Manager Drug Safety Expl anation Advance Directives 02/28/2024 2:04 PM Malika Guillen HCPOA/ADVOCATE/AGENT/R EPRESENTATIVE/SURROGAT E * Full Code (Latest Code Status on File) Date Activated Date Inactivated Comments 02/27/2024 12:46 AM 02/28/2024 4:31 PM Question Answer Comments Full Code: Discussed Healthcare Agents on File Name Relationship Healthcare Agent [facility] Dony Guillen Spouse Health Care Agent Malika Bryant Sister First Alternate Health Care Agent Care Teams Mining Manager Relationship Specialty Start Date End Date Elsewhere, Pcp PCP - General Internal Medicine 02/26/24
--- OUTSIDE RECORDS SUMMARY | 2024-09-07 17:30 | XMS_ITS ---
Author Organization [facility] Address [address] [place] [address] Care Team Providers Care Flatwork Presser Name Role Phone Unavailable Unavailable Unavailable Surgery Details Not on file Complications Check Surgery Details section. Procedure Estimated Blood Loss Check Surgery Details section. Procedure Findings Check Surgery Details section. Procedure Specimens Taken Check Surgery Details section.
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
--- OUTSIDE RECORDS SUMMARY | 2024-09-07 17:30 | XMS_ITS | Encounter Summary ---
Author Organization [facility] Address [address] [place] [address] Care Team Providers Care Rheumatology Specialist Name Role Phone Elsewhere, Pcp Primary Care Provider Unavailabl e Reason for Referral * Speech Pathology (Routine) - Authorized Specialty Diagnoses / Procedures Referred By Contac t Referred To Contact Diagnoses Dysphagia Procedures TURBINE INSPECTOR Speech Language and swallow evaluate and treat Cristiane Palacio APRN, C.N.P., D.N.P. [address] [place] [phone] Phone: tel: fax: Referral ID Status Reason Start Date Expiration Date V isits Requested Visits Authorized [id number] Authorized 08/15/2024 08/15/2025 99 99 Encounter Details Date Type Department Care Team (Late st Contact Info) Description 08/15/2024 Orders Only Division of Endocrinology in [place], [place] [address] [place] [phone] Cristiane Palacio APRN, C.N.P., D.N.P. [address] [place] [phone] Dysphagia (Primary Dx) Social History Tobacco Use Types Packs/Day Years Used Date Smoking Tobacco: Former Cigarettes Q uit: 1985 Smokeless Tobacco: Never Alcohol Use Standard Drinks/Week Comments Not Currently 0 (1 standard drink = 0.6 oz pur e alcohol) [facility] Utilities Answer Date Recorded In the past 12 months has e [employer], gas, oil, or water [employer] threatened to shut off services in your [...] your living situation today? I have a [facility] place to live 03/12/2024 Sex and Gender Information Value Date Recorded Sex Assigned at Male 03/12/2024 1:38 PM CDT Legal Sex Male 8:22 AM FICTION AND NONFICTION AUTHOR Gender Identity Male 03/12/2024 1:38 PM CDT Sexual Orientation Straight 03/12/2024 1: 38 PM CDT documented as of this encounter Plan of Treatment Upcoming Encounters Date Type Department Care Team (Latest Contact Info) Description 10/01/2024 8:15 AM FICTION AND NONFICTION AUTHOR Comprehensive Visit Department of Neurology in [address] [phone] Dillon Ozuna APRN, C.N.P., M.S. [address] [place] [phone] Pam Hillman M.Estephania., CCC-TURBINE INSPECTOR [address] [place] [phone] 10/01/2024 9:00 AM FICTION AND NONFICTION AUTHOR Appointment Department of Radiology, [facility], in [address] [phone] Dillon Ozuna APRN, Alfonso.N.P., M.S. [address] [place] [phone] Pam Hillman M.S., CCC-TURBINE INSPECTOR [address] [place] [phone] 10/01/2024 9:45 AM FICTION AND NONFICTION AUTHOR Clinical Support Department of Neurology in [address] [phone] Dillon Ozuna APRN C.N.P., M.S. [address] [place] [phone] Pam Hillman M.S., CCC-TURBINE INSPECTOR [address] [place] [phone] 10/01/2024 11:00 AM FICTION AND NONFICTION AUTHOR Office Visit Division of Endocrinology in [place], [place] [address] [place] [phone] Dillon Ozuna APRN, C.N.P., M.S. [address] [place] [phone] 10/15/2024 3:15 PM FICTION AND NONFICTION AUTHOR Office Visit Department of Otorhinolaryngology in [address] [phone] Rafal Rankin M.D. [address] [place] [phone] 10/22/2024 8:30 AM FICTION AND NONFICTION AUTHOR Clinical Communication Virtual Review in [address] [phone] 10/25/2024 10:30 AM FICTION AND NONFICTION AUTHOR Comprehensive Visit Department of Neurology in [address] [phone] Oziel Odonnell M.D. [address] [place] [phone] 11/15/2024 11:15 AM FICTION AND NONFICTION AUTHOR Clinical Communication Virtual Review in [address] [phone] 11/18/2024 3:00 PM FICTION AND NONFICTION AUTHOR Ancillary Procedure Department of Ophthalmology in [address] [phone] 11/18/2024 3:30 PM FICTION AND NONFICTION AUTHOR Office Visit Department of Ophthalmology in [address] [phone] Peña Carver M.D. [address] [place] [phone] documented as of this encounter Visit Diagnoses Diagnosis Dysphagia- Primary documented in this encounter Care Teams Rheumatology Specialist Relationship Specialty Start Date End Date Elsewhere, Pcp PCP - General Internal Medicine 02/26/24 documented as of this encounter
--- OUTSIDE RECORDS SUMMARY | 2024-09-07 17:30 | XMS_ITS | Clinical Summary ---
Author Organization [facility] Address [address] [address] Care Team Providers Care Board Certified Behavioral Analyst Name Role Phone Found, No Pcp MD Primary Care Provider Unavailab le Source Comments You are receiving this document as you are listed as the primary care provider,follow-up provider, or the patient has been referred to you for consultation.This is in compliance with the Medicare and[facility] Hospitalca[facility] EHR Incentive Program,which states Providers who transition their patient to another setting of careor provider of care or refers their patient to another provider of care shouldprovide summary care record for each transition of care or referral. 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 10/25/2017 Other specific arthropathies , not elsewhere classified, multiple sites 05/25/2011 Overview (07/05/2017): Other specified arthropathy, multiple sites Immunizations Name Administration Dates Next Due Flu Vac (3+ yrs) 08/19/2013, 3,08/27/2010, 009,09/05/2008,09/06/2007,09/13/2006,07/2005,09/09/2003 Flu Vac Preserv Free (3+yrs) 08/27/2008 Influenza ([place] Only) (Flul aval Quad 0.5, 3+ yrs) 08/22/2016 Influenza H8O6-35 2009 Influenza IIV4 (Quadrivalent ) 0.5mL (72963) 08/24/2018,09/08/2017,09/11/2015, 014 Td 11/13/1996 Tdap 05/04/2012 Zoster [...] Comments Blood Pressure 128/77 10/28/2020 1:49 PM PACK WORKER SUPERVISOR Pulse 69 10/28/2020 1:49 PM PACK WORKER SUPERVISOR Temperature 36.4 ??C (97.5 ??F) 10/28/2020 1 :49 PM PACK WORKER SUPERVISOR Respiratory Rate 18 11/11/2015 3:07 PM PACK WORKER SUPERVISOR Oxygen Saturation - - Inhaled Oxygen Concentration - - Weight 85.6 kg (188 lb 12.8 oz) 019 4:32 PM PACK WORKER SUPERVISOR Height 182.9 cm (6') 03/26/2009 2:31 PM [...] patient's age to complete this topic RSV Aged Out No longer eligi ble based on patient's age to complete this topic MCV4 Aged Out No longer eligi ble based on patient's age to complete this topic Care Teams Board Certified Behavioral Analyst Relationship Specialty Start Date End Date Found, No Pcp, [address] [place] [address] PCP - General 10/18/18
--- OUTSIDE RECORDS SUMMARY | 2024-09-07 17:30 | XMS_ITS | Encounter Summary ---
Author Organization [facility] Address [address] [place] [phone] Care Team Providers Care Rim Roller Operator Name Role Phone Elsewhere, Pcp Primary Care Provider Unavailabl e Reason for Referral * Outpatient (Routine) - Closed Specialty Diagnoses / Procedures Referred By Karine velasco Referred To Contact Diagnoses Dietary Counseling And Surveillance For Enteral Nutrition Procedures EGD ? Percutaneous Endoscopic Gastrostomy/Jejunostomy Cristiane Noel APRN, C.N.P., D.N.P. [address] [place] [phone] Phone: tel: fax: [facility] Referral ID Status Reason Start Date Expiration Date Visits Re quested Visits Authorized [id number] Closed 06/18/2024 06/18/2025 1 1 Reason for Visit * Outpatient (Routine) - Closed Specialty Diagnoses / Procedures Referred By Contac t Referred To Contact Diagnoses Dietary Counseling And Surveillance For Enteral Nutrition Procedures EGD ? Percutaneous Endoscopic Gastrostomy/Jejunostomy Cristiane Noel APRN, C.N.P., D.N.P. [address] [place] [phone] Phone: tel: fax: [facility] Referral ID Status Reason Start Date Expiration Date Visits Re quested Visits Authorized [id number] Closed 06/18/2024 06/18/2025 1 1 Encounter Details Date Type Department Care Team (Latest Contact Info) Description 08/20/2024 1:38 PM CDT - 08/20/2024 3:26 PM CDT Hospital Encounter Division of Gastroenterology in [place], [place] [address] [place] [phone] Cristiane Noel, GRUPO, C.N.P., D.N.P. [address] [place] [phone] Geovanna Aguilar APRN, NOTCHING MACHINE OPERATOR [address] [place] [phone] Dietary Counseling And Surveillance For Enteral Nutrition Discharge Disposition: Home or Self Care Social History Tobacco Use Types Packs/Day Years Used Date Smoking Tobacco: Former Cigarettes Q uit: 1984 Smokeless Tobacco: Never Alcohol Use Standard Drinks/Week Comments Not Currently 0 (1 standard drink = 0.6 oz pur e alcohol) [facility] Utilities Answer Date Recorded In the past 12 months has e Y'all, gas, oil, or water Ready To Travel threatened to shut off services in your [...] your living situation today? I have a [facility] place to live 03/12/2024 Sex and Gender Information Value Date Recorded Sex Assigned at Male 03/12/2024 1:38 PM CDT Legal Sex Male 8:22 AM VICE PRESIDENT OF SALES Gender Identity Male 03/12/2024 1:38 PM CDT Sexual Orientation Straight 03/12/2024 1: 38 PM CDT documented as of this encounter Last Filed Vital Signs Vital Sign Reading Time Taken Comments Blood Pressure - - Pulse - - Temperature - - Respiratory Rate - - Oxygen Saturation - - Inhaled Oxygen Concentration - - Weight 72.1 kg (159 lb) 08/20/2024 2:23 PM CDT Height 182.9 cm (6') 08/20/2024 2:23 PM CDT Body Mass Index 21.56 08/20/2024 2:23 PM CDT documented in this encounter Medications at Time of Discharge acetaminophen (TYLENOL) 325 mg tablet Administer 650 mg via gastric tube every 6 (six) hours as needed for pain or headaches. 10/10/2023 escitalopram (Lexapro) 20 mg tablet Take 20 mg by mouth. 06/04/2024 esomeprazole (NexIUM) 40 mg packet Take 1 packet (40 mg total) by mouth 2 (two) times a day. 120 packet 3 05/07/2024 famotidine (Pepcid) 40 mg/5 mL (8 mg/mL) suspension Administer 2.5 mL (20 mg total) via gastric tube 2 (two) times a day. 450 mL 3 07/31/2024 finasteride (PROSCAR) 5 mg tablet Administer 1 [...] 1 each daily. durable medical equipment (DME). [employer] feed bag Ref# [id number]. Change bag every 24 hours. 03/27/2024 UNABLE TO FIND 1 each as needed (5 times daily for flushes as needed.). durable medical equipment (DME) 12ml enteral syringe NeoMed with ENFIT CONNECTOR. 03/19/2024 documented as of this encounter Nursing Notes * Jay Cano R.N. - 08/20/2024 3:26 PM CDT PEG/PEJ Nursing Procedure Note ASSESSMENT / PLAN Patient Name: Vinh Guillen Tube Placement Procedure Department : DIVISION OF GASTROENTEROLOGY IN [place] SUBJECTIVE Past Medical History: Diagnosis Date Depressive Disorder Gastroesophageal Reflux Disease NOS Past Surgical History: Procedure Laterality Date INJECTION BOTOX Bilateral 07/23/2024 Procedure: INJECTION BOTOX TO SUBMANDIBULAR GLANDS 50 units total, 25 units into each gland, ULTRASOUND GUIDANCE.; Surgeon: Rafal Rankin M.D.; Location: RST ROMB OR OTHER CONVERTED SHX (SEE COMMENT) N/A 06/20/1991 >Bilateral partial vasectomy in office Social History Socioeconomic History Marital status: Tobacco Use Smoking status: Former Current packs/day: 0.00 Types: Cigarettes Quit date: 1984 Years since quittin.7 Smokeless tobacco: Never Vaping Use Vaping status: never used Substance and Sexual Activity Alcohol use: Not Currently Drug use: Never Sexual activity: Never Social Determinants of Health Food Insecurity: No Food Insecurity (03/12/2024) Hunger Vital Sign Worried About Running Out of Food in the Last Year: Never true Ran Out of Food in the Last Year: Never true Transportation Needs: No Transportation Needs (03/12/2024) PRAPARE - Transportation Lack of Transportation (Medical): No Lack of Transportation (Non-Medical): No Physical Activity: Inactive (03/12/2024) Exercise Vital Sign Days of Exercise per Week: 0 days Minutes of Exercise per Session: 0 min Intimate Partner Violence: Not At Risk (02/27/2024) Humiliation, Afraid, Rape, and Kick questionnaire Fear of Current or Ex-Partner: No Emotionally Abused: No Physically Abused: No Sexually Abused: No Housing Stability: Low Risk (03/12/2024) Housing Stability Housing: Living Situation: I have a steady place to live OBJECTIVE Procedure Patient presents to [place] [address] Patient being seen for: TGJ Type of procedure: Replacement Location of tube: Stomach and Small Bowel (Gastric site with tip in Small bowel) Brand of tube: Avanos Type of connector: small-bore Reference number: [id number] Size of Tube: 18 Fr Top of skin disc level: 4 Internal Retention Device: Balloon Balloon volume in mL: 10 T Fasteners: Not Present Skin integrity of site: Normal/intact Ostomy tube not altered. Ostomy appliance not applied. Complications: None Was the tube labeled: No Verification of tube done by: Fluoroscopy After Visit Information Recommendations for after procedure: Follow nursing guideline PEG/PEJ Tube Site Care and Tube Replacement, Home [facility], Follow instructions page 6-12 in PEG/PEJ booklet for post tube placement activity, pain control, site care, Contact number is in wallet card and PEG/PEJ booklet for any questions or concers related to tube and Once dressing is removed secure tube to abdomen with se pro net for Flexi-Trak Return appointment timeframe: 3-5 months Tube is used for: Feeding and Venting When may you use tube: May use tube immediately Tube placed to gravity: No Patient Education Learning needs assessment. Who is being assessed: Patient and Family Any barriers to learning: None Learning preference: Doing, Listening, Reading and Seeing Education: PEG/PEJ Wallet Card ([id number]) Supplies sent with patient: None Did not measure tract as patient is planning on gaining weight. After discussion with patient and family, patient chose to forego stoma measurement until desired weight is achieved. documented in this encounter Plan of Treatment Upcoming Encounters Date Type Department Care Team (Latest Contact Info) Description 10/01/2024 8:15 AM VICE PRESIDENT OF SALES Comprehensive Visit Department of Neurology in [place], [place] [address] [place] [address] Dillon Ozuna APRN, C.N.P., M.S. [address] [place] [phone] Pam Hillman, M.S., [facility]-BARIATRIC SURGEON [address] [place] [phone] 10/01/2024 9:00 AM VICE PRESIDENT OF SALES Appointment Department of Radiology, [facility], in [place], [place] [address] [place] [address] Dillon Ozuna APRN, C.N.P., M.S. [address] [place] [phone] Pam Hillman M.Estephania., [facility]IATRIC SURGEON [address] [place] [phone] 10/01/2024 9:45 AM VICE PRESIDENT OF SALES Clinical Support Department of Neurology in [place], [place] [address] [place] [phone] Dillon Ozuna APRN, C.NEdithP., M.S. [address] [place] [phone] Pam Hillman M.S., [facility] SURGEON [address] [place] [phone] 10/01/2024 11:00 AM VICE PRESIDENT OF SALES Office Visit Division of Endocrinology in [place], [place] [address] [place] [phone] Dillon Ozuna APRN, C.NRon., M.S. [address] [place] [phone] 10/15/2024 3:15 PM VICE PRESIDENT OF SALES Office Visit Department of Otorhinolaryngology in [place], [place] [address] [place] [phone] Rafal Rankin M.D. [address] [place] [phone] 10/22/2024 8:30 AM VICE PRESIDENT OF SALES Clinical Communication Virtual Review in [address] [phone] 10/25/2024 10:30 AM VICE PRESIDENT OF SALES Comprehensive Visit Department of Neurology in [place], [place] [address] [place] [phone] Oziel Odonnell M.D. [address] [place] [phone] 11/15/2024 11:15 AM VICE PRESIDENT OF SALES Clinical Communication Virtual Review in [address] [phone] 11/18/2024 3:00 PM VICE PRESIDENT OF SALES Ancillary Procedure Department of Ophthalmology in [place], [place] [address] [place] [address] 11/18/2024 3:30 PM VICE PRESIDENT OF SALES Office Visit Department of Ophthalmology in [place], [place] [address] [place] [address] Peña Carver M.D. [address] [place] [phone] documented as of this encounter Procedures Procedure Name Priority Date/Time Associated Diagnosis Comments FL FLUORO LESS THAN 1 HOUR RAD - Routine (most inpatients and all outpatients) 08/20/2024 3:24 PM CDT Dietary Counseling And Surveillance For Enteral Nutrition NON-ENDOSCOPIC TUBE PROCEDURE Routine 08/20/2024 2:56 PM CDT Dietary Counseling And Surveillance For Enteral Nutrition EGD ? PERCUTANEOUS ENDOSCOPIC GASTROSTOMY/JEJUNOS KALEN Routine 08/20/2024 2:56 PM CDT Dietary Counseling And Surveillance For Enteral Nutrition documented in this encounter Results * FL Fluoro Less Than 1 [...] tube. ? - No specimens collected. Narrative [employer] - 08/20/2024 3:33 PM CDT Edilberto 6 GI GI Patient Name: Vinh Guillen Date of : 1955 Age: 68 Procedure Date: 08/20/2024 Procedure: ? Non-endoscopic Tube Procedure Providers: ? Juan Garrdio MD, Guy Roach Iii ? (Fellow) Referring Provider: ?Cristiane Noel [...] PM Number of Addenda: 0 us Cristiane C Hakeem LOMBARDO, C.N.P., D.N.P. GI PROCEDURE ORDERABLES Final Result Performing Organization Address City/State/ZIP Co ak Phone Number BANERJEE ANNEMARIE S[facility]ERS documented in this encounter Visit Diagnoses Diagnosis Dietary Counseling And Surveillance For Enteral Nutrition documented in this encounter Care Teams Rim Roller Operator Relationship Specialty Start Date End Date Elsewhere, Pcp PCP - General Internal Medicine 02/26/24 documented as of this encounter
--- OUTSIDE RECORDS SUMMARY | 2024-09-07 17:30 | XMS_ITS | Encounter Summary ---
Author Organization [facility] Address [address] [place] [address] Care Team Providers Care Antique Refinisher Name Role Phone Elsewhere, Pcp Primary Care Provider Unavailabl e Encounter Details Date Type Department Care Team (Late st Contact Info) Description 08/15/2024 Documentation Division of General Internal Medicine in [place], [place] [address] [place] [address] Thania Ulloa, Pharm.D., R.Ph. Social History Tobacco Use Types Packs/Day Years Used Date Smoking Tobacco: Former Cigarettes Q uit: 1985 Smokeless Tobacco: Never Alcohol Use Standard Drinks/Week Comments Not Currently 0 (1 standard drink = 0.6 oz pur e alcohol) [facility] Utilities Answer Date Recorded In [...] your living situation today? I have a [facility] place to live 03/12/2024 Sex and Gender Information Value Date Recorded Sex Assigned at Male 03/12/2024 1:38 PM CDT Legal Sex Male 8:22 AM 3RD GRADE TEACHER Gender Identity Male 03/12/2024 1:38 PM CDT Sexual Orientation Straight 03/12/2024 1: 38 PM CDT documented as of this encounter Progress Notes * Thania Ulloa, Pharm.D., R.Ph. - 08/15/2024 1:41 PM CDT At the request of Home Enteral Nutrition, I reviewed Mr. Guillen's outpatient medication list for interactions and issues related to administration via jejunal tube. Current Outpatient Medications Medication Sig Recommendation acetaminophen (TYLENOL) 325 mg tablet Administer 650 mg via gastric tube every 6 (six) hours as needed for pain or headaches. Ok to crush, Ok for jejunal administration. escitalopram (Lexapro) 20 mg tablet Take 20 mg by mouth. Ok to crush, Ok for jejunal administration. esomeprazole (NexIUM) 40 mg packet Take 1 packet (40 mg total) by mouth 2 (two) times a day. (Patient taking differently: 40 mg 2 (two) times a day. Dissolve in water, administer via G-tube twice daily.) Ok for jejunal administration. famotidine (Pepcid) 40 mg/5 mL (8 mg/mL) suspension Administer 2.5 mL (20 mg total) via gastric tube 2 (two) times a day. Ok for jejunal administration. finasteride (PROSCAR) 5 mg tablet Administer 1 tablet via gastric tube daily. Ok for jejunal administration. fluticasone propionate (FLONASE) 50 mcg/actuation nasal spray Administer 1 spray into each nostril 2 (two) times a day. Not for tube administration. loperamide (Imodium A-D) 2 mg capsule Administer 2 mg via gastric tube 2 (two) times a day. The tablet is preferred for tube administration. mag/aluminum/sod bicarb/alginc (GAVISCON ORAL) 20 mL by g-tube route 3 (three) times a day. Gaviscon Double Action. Not recommended for jejunal administration. prochlorperazine (COMPAZINE) 25 mg suppository Insert 25 mg into the rectum every 12 (twelve) hoursas needed. Not for tube administration. tadalafiL (CIALIS) 5 mg tablet Administer 5 mg via gastric tube daily. Ok for jejunal administration. traZODone (DESYREL) 50 mg tablet 50 mg by g-tube route at bedtime. Ok for jejunal administration. In most cases, direct data on medication administration via feeding tubes is not available. Therefore recommendations in many cases, for example ok to crush are provided based on general principlesof administering medications via feeding tube. Because bioavailability may vary with oral and feeding tube administration, close monitoring of drug effects and/or levels is necessary with a change inroute of administration such as this. documented in this encounter Plan of Treatment Upcoming Encounters Date Type Department Care Team (Latest Contact Info) Description 10/01/2024 8:15 AM 3RD GRADE TEACHER Comprehensive Visit Department of Neurology in [address] [phone] Dillon Ozuna APRN, C.NRon., M.S. [address] [place] [phone] Pam Hillman M.S., CCC-HISTOLOGY SPECIALIST [address] [place] [phone] 10/01/2024 9:00 AM 3RD GRADE TEACHER Appointment Department of Radiology, [facility], in [address] [phone] Dillon Ozuna APRN, C.NRon., M.S. [address] [place] [phone] Pam Hillman M.S., [facility] [phone] 10/01/2024 9:45 AM 3RD GRADE TEACHER Clinical Support Department of Neurology in [address] [phone] Dillon Ozuna APRN, C.N.P., M.S. [address] [place] [phone] Pam Hillman M.S., [facility] [phone] 10/01/2024 11:00 AM 3RD GRADE TEACHER Office Visit Division of Endocrinology in [address] [phone] Dillon Ozuna APRN, C.N.P., M.S. [address] [place] [phone] 10/15/2024 3:15 PM 3RD GRADE TEACHER Office Visit Department of Otorhinolaryngology in [place], [place] [address] [place] [phone] Rafal Rankin M.D. [address] [place] [phone] 10/22/2024 8:30 AM 3RD GRADE TEACHER Clinical Communication Virtual Review in [place], [place] 200 [place] [phone] 10/25/2024 10:30 AM 3RD GRADE TEACHER Comprehensive Visit Department of Neurology in [place], [place] [address] [place] [phone] Oziel Odonnell M.D. [address] [place] [phone] 11/15/2024 11:15 AM 3RD GRADE TEACHER Clinical Communication Virtual Review in [place], [place] 200 [place] [phone] 11/18/2024 3:00 PM 3RD GRADE TEACHER Ancillary Procedure Department of Ophthalmology in [place], [place] [address] [place] [phone] 11/18/2024 3:30 PM 3RD GRADE TEACHER Office Visit Department of Ophthalmology in [place], [place] [address] [place] [phone] Peña Carver M.D. [address] [place] [phone] documented as of this encounter Visit Diagnoses Not on filedocumented in this encounter Care Teams Antique Refinisher Relationship Specialty Start Date End Date Elsewhere, Pcp PCP - General Internal Medicine 02/26/24 documented as of this encounter
--- OUTSIDE RECORDS SUMMARY | 2024-09-07 17:30 | XMS_ITS | Encounter Summary ---
Author Organization [facility] Address [address] [place] [address] Care Team Providers Care Stem Roller Or Crusher Operator Name Role Phone Elsewhere, Pcp Primary Care Provider Unavailabl e Encounter Details Date Type Department Care Team (Latest Contact Info) Description 08/22/2024 Clinical Communication Department of Ophthalmology in [place], [place] [address] [place] [address] Kandace Shankar M.D. [address] [place] [address] Social History Tobacco Use Types Packs/Day Years Used Date Smoking Tobacco: Former Cigarettes Q uit: 1985 Smokeless Tobacco: Never Alcohol Use Standard Drinks/Week Comments Not Currently 0 (1 standard drink = 0.6 oz pur e alcohol) [facility] Utilities Answer Date Recorded [...] living situation today? I have a [facility] place to live 03/12/2024 Sex and Gender Information Value Date Recorded Sex Assigned at Male 03/12/2024 1:38 PM CDT Legal Sex Male 8:22 AM EMERGENCY MANAGEMENT DIRECTOR Gender Identity Male 03/12/2024 1:38 PM CDT Sexual Orientation Straight 03/12/2024 1: 38 PM CDT documented as of this encounter Plan of Treatment Upcoming Encounters Date Type Department Care Team (Latest Contact Info) Description 10/01/2024 8:15 AM EMERGENCY MANAGEMENT DIRECTOR Comprehensive Visit Department of Neurology in [place], [place] [address] [place] [address] Dillon Ozuna APRN, C.N.P., M.S. [address] [place] [phone] Pam Hillman M.S., [facility] [address] [place] [phone] 10/01/2024 9:00 AM EMERGENCY MANAGEMENT DIRECTOR Appointment Department of Radiology, [facility], in [place], [place] [address] [place] [address] Dillon Ozuna APRN, C.N.P., M.S. [address] [place] [phone] Pam Hillman M.S., [facility] [address] [place] [phone] 10/01/2024 9:45 AM EMERGENCY MANAGEMENT DIRECTOR Clinical Support Department of Neurology in [place], [place] [address] [place] [phone] Dillon Ozuna APRN, C.N.Romero., M.S. [address] [place] [phone] Pam Hillman M.S., [facility] [address] [place] [phone] 10/01/2024 11:00 AM EMERGENCY MANAGEMENT DIRECTOR Office Visit Division of Endocrinology in [address] [phone] Dillon Ozuna APRN, C.NRon., M.S. [address] [place] [phone] 10/15/2024 3:15 PM EMERGENCY MANAGEMENT DIRECTOR Office Visit Department of Otorhinolaryngology in [place], [place] [address] [place] [phone] Rafal Rankin M.D. [address] [place] [phone] 10/22/2024 8:30 AM EMERGENCY MANAGEMENT DIRECTOR Clinical Communication Virtual Review in [place], [place] 200 [place] [address] 10/25/2024 10:30 AM EMERGENCY MANAGEMENT DIRECTOR Comprehensive Visit Department of Neurology in [place], [place] [address] [place] [phone] Oziel Odonnell M.D. [address] [place] [phone] 11/15/2024 11:15 AM EMERGENCY MANAGEMENT DIRECTOR Clinical Communication Virtual Review in [place], [place] 200 [place] [phone] 11/18/2024 3:00 PM EMERGENCY MANAGEMENT DIRECTOR Ancillary Procedure Department of Ophthalmology in [place], [place] [address] [place] [phone] 11/18/2024 3:30 PM EMERGENCY MANAGEMENT DIRECTOR Office Visit Department of Ophthalmology in [address] [phone] Peña Carver M.D. [address] [place] [phone] documented as of this encounter Visit Diagnoses Not on filedocumented in this encounter Care Teams Stem Roller Or Crusher Operator Relationship Specialty Start Date End Date Elsewhere, Pcp PCP - General Internal Medicine 02/26/24 documented as of this encounter
--- OUTSIDE RECORDS SUMMARY | 2024-09-07 17:30 | XMS_ITS | Encounter Summary ---
Author Organization [facility] Address [address] [place] [address] Care Team Providers Care New Business Clerk Name Role Phone Elsewhere, Pcp Primary Care Provider Unavailabl e Encounter Details Date Type Department Care Team (Latest Contact Info) Description 08/20/2024 2:16 PM CDT - 08/20/2024 11:59 PM CDT Hospital Encounter Department of Radiology, [facility] in [place], [place] [address] [place] [address] Cristiane Palacio, GRUPO, C.N.P., D.N.P. [address] [place] [address] Discharge Disposition: Home or Self Care Social History Tobacco Use Types Packs/Day Years Used Date Smoking Tobacco: Former Cigarettes Q uit: 1985 Smokeless Tobacco: Never Alcohol Use Standard Drinks/Week Comments Not Currently 0 (1 standard drink = 0.6 oz pur e alcohol) [facility] Utilities Answer Date Recorded In the past 12 months has e electric, gas, oil, or water [employer] threatened to shut off services in your [...] your living situation today? I have a [facility] place to live 03/12/2024 Sex and Gender Information Value Date Recorded Sex Assigned at Male 03/12/2024 1:38 PM CDT Legal Sex Male 8:22 AM WOOD PATTERNMAKER Gender Identity Male 03/12/2024 1:38 PM CDT [...] 1 each daily. durable medical equipment (DME). Vobile feed bag Ref# [id number]. Change bag every 24 hours. 03/27/2024 UNABLE TO FIND 1 each as needed (5 times daily for flushes as needed.). durable medical equipment (DME) 12ml enteral syringe NeoMed with ENFIT CONNECTOR. 03/19/2024 documented as of this encounter Plan of Treatment Upcoming Encounters Date Type Department Care Team (Latest Contact Info) Description 10/01/2024 8:15 AM WOOD PATTERNMAKER Comprehensive Visit Department of Neurology in [place], [place] [address] [place] [address] Dillon Ozuna APRN, C.N.P., M.S. [address] [place] [phone] Pam Hillman M.S., [facility] [address] [place] [phone] 10/01/2024 9:00 AM WOOD PATTERNMAKER Appointment Department of Radiology, [facility], in [place], [place] [address] [place] [address] Dillon Ozuna APRN, C.N.Romero., M.S. [address] [place] [phone] Pam Hillman M.S., [facility] [address] [place] [phone] 10/01/2024 9:45 AM WOOD PATTERNMAKER Clinical Support Department of Neurology in [place], [place] [address] [place] [phone] Dillon Ozuna APRN, C.N.P., M.S. [address] [place] [phone] Pam Hillman M.S., [facility] [address] [place] [phone] 10/01/2024 11:00 AM WOOD PATTERNMAKER Office Visit Division of Endocrinology in [address] [phone] Dillon Ozuna APRN, C.N.P., M.S. [address] [place] [phone] 10/15/2024 3:15 PM WOOD PATTERNMAKER Office Visit Department of Otorhinolaryngology in [address] [place] [address] Rafal Rankin M.D. [address] [place] [phone] 10/22/2024 8:30 AM WOOD PATTERNMAKER Clinical Communication Virtual Review in [address] [phone] 10/25/2024 10:30 AM WOOD PATTERNMAKER Comprehensive Visit Department of Neurology in [address] [phone] Oziel Odonnell M.D. [address] [place] [phone] 11/15/2024 11:15 AM WOOD PATTERNMAKER Clinical Communication Virtual Review in [address] [address] 11/18/2024 3:00 PM WOOD PATTERNMAKER Ancillary Procedure Department of Ophthalmology in [address] [address] 11/18/2024 3:30 PM WOOD PATTERNMAKER Office Visit Department of Ophthalmology in [address] [address] Peña Carver M.D. [address] [place] [phone] documented as of this encounter Procedures Procedure [...] on this date for clinical details. Cristiane Palacio APRN, C.N.P., D.N.P. IMG FLUOROSCO PY PROCEDURES Final Result ERCP LOS RST documented in this encounter Visit Diagnoses Not on filedocumented in this encounter Care Teams New Business Clerk Relationship Specialty Start Date End Date Elsewhere, Pcp PCP - General Internal Medicine 02/26/24 documented as of this encounter
--- OUTSIDE RECORDS SUMMARY | 2024-09-07 17:30 | XMS_ITS | Clinical Summary ---
Author Organization [facility] Address [address] [place] [address] Care Team Providers Care Stunner Name Role Phone Elsewhere, Pcp Primary Care Provider Unavailabl e Source Comments Patient records contain information from all sites at [facility]. For routine questions regarding patient records, call [phone] during business hours, M-F 8:00 AM - 5:00 PM Central Time. Record requests for emergency care only can be directed to [phone] at any time.[facility] Allergies Active Allergy Reactions Criticality Noted [...] 1 each daily. durable medical equipment (DME). Dial2Do feed bag Ref# [id number]. Change bag every 24 hours. 4 Active [...] 08/23/2024 Clinical Communication Division of Gastroenterology in [place], [place] [address] [place] [phone] Swapnil Jaramillo M.D. 08/22/2024 4:20 PM CDT Telemedicine Division of Gastroenterology in [place], [place] [address] [place] [phone] Swapnil Jaramillo M.D. Dysphagia Oropharyngeal Phase (Primary Dx) 08/22/2024 Clinical Communication Department of Ophthalmology in [place], [place] [address] [place] [phone] Kandace Shankar M.D. 08/20/2024 2:16 PM CDT - 08/20/2024 11:59 PM CDT Hospital Encounter Department of Radiology, [facility] in [address] [address] Cristiane Noel APRN, C.N.P., D.N.P. Discharge Disposition: Home or Self Care 08/20/2024 1:38 PM CDT - 08/20/2024 3:26 PM CDT Hospital Encounter Division of Gastroenterology in [address] [phone] Cristiane Noel APRN, C.N.P., D.N.P. Geovanna Aguilar APRN, SONIA Dietary Counseling And Surveillance For Enteral Nutrition Discharge Disposition: Home or Self Care 08/15/2024 4:15 PM CDT Office Visit Department of Ophthalmology in [place], [place] [address] [place] [phone] Kandace Shankar M.D. Diplopia (Primary Dx) 08/15/2024 3:00 PM CDT Comprehensive Visit Department of Ophthalmology in [place], [place] [address] [place] [phone] Peña Carver M.D. Esotropia (Primary Dx); Diplopia; Hyperopia Right; Palsy Fourth Nerve Right; Sixth Abducent Nerve Palsy Right Eye; Sixth Abducent Nerve Palsy Left Eye 08/15/2024 1:00 PM CDT Office Visit Department of Otorhinolaryngology in [place], [place] [address] [place] [phone] Rafal Rankin M.D. 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 Kriss Wharton M.S., [facility] Dysphagia 08/15/2024 Orders Only Division of Endocrinology in [place], [place] [address] [place] [phone] Cristiane Noel APRN, C.N.P., D.N.P. Dysphagia (Primary Dx) 08/15/2024 Documentation Division of General Internal Medicine in [place], [place] [address] [place] [phone] Thania Ulloa Pharm.D., R.Ph. 08/15/2024 Clinical Communication Division of General Internal Medicine in [place], [place] [address] [place] [phone] Cristiane Noel APRN, C.N.P., D.N.P. 08/14/2024 Clinical Communication Department of Nutrition and Diabetes Education in [place], [place] [address] [place] [phone] Victoria Muir M.S., RDN, LD 08/13/2024 3:00 PM CDT Telemedicine Division of Endocrinology in [place], [place] [address] [place] [address] Cristiane Noel APRN, C.N.P., D.N.P. Naomi Huber APRN, C.N.P. Dietary Counseling And Surveillance For Enteral Nutrition; Dysphagia; Gastrojejunostomy Percutaneous Status Post 08/13/2024 2:00 PM CDT Telemedicine Department of Nutrition and Diabetes Education in [place], [place] [address] [place] [address] Cristiane Noel APRN, C.N.P., D.N.P. Victoria Muir M.S., RDN, LD Dietary Counseling And Surveillance For Enteral Nutrition (Primary Dx); Pneumonitis Due To Inhalation Of Food And Vomit (HCC); Gastrojejunostomy Percutaneous Status Post ; Dysphagia 08/12/2024 Orders Only Department of Nutrition and Diabetes Education in [place], [place] [address] [place] [address] Victoria Muir M.S., RDN, LD Dietary Counseling And Surveillance For Enteral Nutrition (Primary Dx); Dysphagia; Gastrojejunostomy Percutaneous Status Post 08/12/2024 Clinical Communication Division of General Internal Medicine in [place], [place] [address] [place] [address] Cristiane Noel APRN, C.N.P., D.N.P. Patient Question 08/06/2024 Clinical Communication Department of Otorhinolaryngology in [place], [place] [address] [place] [address] Rafal Rankin M.D. 08/06/2024 Orders Only Department of Otorhinolaryngology in [place], [place] [address] [place] [address] Rafal Rankin M.D. 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 07/23/2024 1:46 PM CDT - 07/23/2024 2:44 PM CDT Surgery [facility] OR [address] [place] [phone] Rafal Rankin M.D. INJECTION BOTOX TO SUBMANDIBULAR GLANDS 50 units total, 25 units into each gland, ULTRASOUND GUIDANCE. 07/23/2024 1:12 PM CDT Anesthesia Event [facility] OR [address] [place] [phone] Tayo Bardford D.O. Higgins, Timon J, M.D. 07/23/2024 11:19 AM CDT - 07/23/2024 2:16 PM CDT Hospital Encounter [facility] OR [address] [place] [phone] Rafal Rankin M.D. Discharge Disposition: Home or Self Care 07/23/2024 10:00 AM CDT - 07/23/2024 11:18 AM CDT Hospital Encounter Department of Radiology, [facility], in [place], [place] [address] [place] [phone] Rafal Rankin M.D. Sialorrhea Discharge Disposition: Home or Self Care 07/18/2024 1:00 PM CDT Office Visit Department of Otorhinolaryngology in [place], [place] [address] [place] [phone] Rafal Rankin M.D. 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 06/25/2024 9:00 AM CDT Telemedicine Department of Otorhinolaryngology in [place], [place] [address] [place] [phone] Rafal Rankin M.D. 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 McKay, Elisa C, APRN, C.N.P., D.N.P. Dysphagia; Stenosis Laryngeal; Pneumonitis Due To Inhalation Of Food And Vomit (HCC) 06/18/2024 10:00 AM CDT Clinical Support Division of Endocrinology in [place], [place] [address] [place] [phone] Stan Hernandez M.D. Neldner, Indra K REdithNEdith Dysphagia; Stenosis Laryngeal; Pneumonitis Due To Inhalation Of Food And Vomit (HCC) 06/18/2024 9:00 AM CDT Clinical Support Department of Nutrition and Diabetes Education in [address] [phone] Stan Hernandez M.D. Johnson, Danelle A, M.S., RDN, LD Dietary Counseling And Surveillance For Enteral Nutrition (Primary Dx); Dysphagia; Stenosis Laryngeal; Pneumonitis Due To Inhalation Of Food And Vomit (HCC); Gastrojejunostomy Percutaneous Status Post 06/18/2024 Documentation Division of Endocrinology in [place], [place] [address] [place] [phone] Imelda Morejon, REdithN. Scheduling 06/18/2024 Orders Only Division of Endocrinology in [place], [place] [address] [place] [phone] Cristiane Noel APRN, C.N.P., D.N.P. Dysphagia (Primary Dx) 06/18/2024 Orders Only Division of Endocrinology in [place], [place] [address] [place] [phone] Ankit Medina, R.NEdith Dietary Counseling And Surveillance For Enteral Nutrition (Primary Dx) 06/18/2024 Orders Only Department of Otorhinolaryngology in [place], [place] [address] [place] [address] Luz Muir R.N. Sialorrhea (Primary Dx) 06/18/2024 Clinical Communication Department of Otorhinolaryngology in [place], [place] [address] [place] [address] Rafal Rankin M.D. 06/17/2024 Orders Only Department of Otorhinolaryngology in [place], [place] [address] [place] [address] Rafal Rankin M.D. from Last 3 Months Social History Tobacco Use Types Packs/Day Years Used Date Smoking Tobacco: Former Cigarettes Q uit: 1985 Smokeless Tobacco: Never Tobacco Cessation:Counseling Given: Not Answered Alcohol Use Standard Drinks/Week Comments Not Currently 0 (1 standard drink = 0.6 oz pur e alcohol) [facility] Eveoities Answer Date Recorded In the past 12 months has [facility] [employer], gas, oil, or water [employer] threatened to shut off services in your [...] living situation today? I have a [facility] place to live 03/12/2024 Sex and Gender Information Value Date Recorded Sex Assigned at Male 03/12/2024 1:38 PM CDT Legal Sex Male 8:22 AM INVESTIGATION DIVISION CAPTAIN Gender Identity Male 03/12/2024 1:38 PM CDT [...] (Latest Contact Info) Description 10/01/2024 8:15 AM INVESTIGATION DIVISION CAPTAIN Comprehensive Visit Department of Neurology in [place], [place] [address] [place] [address] Dillon Ozuna APRN, C.N.P., M.S. 200 [place] [address] Pam Hillman M.S., [facility] [address] [place] [phone] 10/01/2024 9:00 AM INVESTIGATION DIVISION CAPTAIN Appointment Department of Radiology, [facility], in [place], [place] [address] [place] [phone] Dillon Ozuna APRN, C.N.P., M.S. [address] [place] [phone] Pam Hillman MEdithS., [facility] [address] [place] [phone] 10/01/2024 9:45 AM INVESTIGATION DIVISION CAPTAIN Clinical Support Department of Neurology in [address] [phone] Dillon Ozuna APRN, Alfonso.N.P., M.S. [address] [place] [phone] Pam Hillman M.S., [address] [phone] 10/01/2024 11:00 AM INVESTIGATION DIVISION CAPTAIN Office Visit Division of Endocrinology in [address] [address] Dillon Ozuna APRN, C.N.P., M.S. [address] [place] [phone] 10/15/2024 3:15 PM INVESTIGATION DIVISION CAPTAIN Office Visit Department of Otorhinolaryngology in [address] [phone] Rafal Rankin M.D. [address] [place] [phone] 10/22/2024 8:30 AM INVESTIGATION DIVISION CAPTAIN Clinical Communication Virtual Review in [place], [place] [address] [place] [address] 10/25/2024 10:30 AM INVESTIGATION DIVISION CAPTAIN Comprehensive Visit Department of Neurology in [place], [place] [address] [place] [phone] Oziel Odonnell M.D. [address] [place] [phone] 11/15/2024 11:15 AM INVESTIGATION DIVISION CAPTAIN Clinical Communication Virtual Review in [place], [place] [address] [place] [address] 11/18/2024 3:00 PM INVESTIGATION DIVISION CAPTAIN Ancillary Procedure Department of Ophthalmology in [place], [place] [address] [place] [phone] 11/18/2024 3:30 PM INVESTIGATION DIVISION CAPTAIN Office Visit Department of Ophthalmology in [place], [place] [address] [place] [phone] Peña Carver M.D. [address] [place] [phone] Health Maintenance Due Date Last Done Comments [...] 07/23/2024 12:56 PM CDT Sialorrhea Case Notes PRODUCTION COUNTER at 11:23 OTORHINOLARYNGOLOGY IMAGE EXAM Routine 07/18/2024 [...] record on this date for clinical details. us Cristiane Noel APRN, C.N.P., Shanelle.N.P. IMG FLUOROSCO PY PROCEDURES Final Result ERCP LOS RST * Non-Endoscopic Tube Procedure (08/20/2024 2:56 PM CDT) 08/20/2024 2:56 PM CDT Impressions [facility] - 08/20/2024 3:33 PM CDT Post-op Diagnoses: ? - The PEG-J tube had been in place for an extended length of time and ? was removed and replaced with an 18 Fr Avanos HOLLY PEG-J tube. ? - No specimens collected. Narrative [facility] - 08/20/2024 3:33 PM CDT Edilberto 6 GI GI Patient Name: Vinh Guillen Date of : 1955 Age: 68 Procedure Date: 08/20/2024 Procedure: ? Non-endoscopic Tube Procedure Providers: ? Juan Garrido MD, Guy Roach Iii ? (Fellow) Referring [...] Final Result Performing Organization Address City/State/ZIP Co md Phone Number [employer] NA * Sensory Motor Exam (08/15/2024 2:49 PM CDT) Narrative OPHTHALMOLGY NON-IMAGING ORDERS - 08/15/2024 3:32 PM CDT I have reviewed the medical record and the sensorimotor exam documentation. The findings are consistent with my previously initiated care plan. I agree with the impression, plan, and follow up as entered by the sign language interpreter. us Pñea Carver M.D. OPHTH TOMOGRAPHY Final Resul t OPHTHALMOLGY NON-IMAGING ORDERS * US Guidance Intraoperative (07/23/2024 [...] NON RAD IMAGING PROCE DURES Final Result IIMS NA * (ABNORMAL) Basic Metabolic Panel (02/28/2024 [...] M.S.N. LAB BLOOD AD D-ON Final Result Performing Organization Address City/[facility]/ZIP Co de Phone Number [facility] [address] [place] [address], [facility] DTL [facility] [address] [place] [address] from Last 3 Months or Most Recently Relevant to Health Maintenance [place] [address] MEDICARE [facility] Advance Directives For more information, please contact: [phone] Documents on File Type Date Recorded Patient Lithographed Plate Inspector Expl anation Advance Directives 02/28/2024 2:04 PM Malika Guillen HCPOA/ADVOCATE/AGENT/R EPRESENTATIVE/SURROGAT E * Full Code (Latest Code Status on File) Date Activated Date Inactivated Comments 02/27/2024 12:46 AM 02/28/2024 4:31 PM Question Answer Comments Full Code: Discussed Healthcare Agents on File Name Relationship Healthcare Agent Latasha Guillen Spouse Health Care Agent Malikajuan carlos Bryant Sister First Alternate Health Care Agent Care Teams Stunner Relationship Specialty Start Date End Date Elsewhere, Pcp PCP - General Internal Medicine 02/26/24
--- OUTSIDE RECORDS SUMMARY | 2024-09-07 17:31 | XMS_ITS | Encounter Summary ---
Author Organization [facility] Address [address] [place] [address] Care Team Providers Care Truck And Transport Mechanic Name Role Phone Elsewhere, Pcp Primary Care Provider Unavailabl e Encounter Details Date Type Department Care Team (Latest Contact Info) Description 07/24/2024 Clinical Communication Division of Endocrinology in [place], [place] [address] [place] [address] Cristiane Palacio, GRUPO, C.N.P., D.N.P. [address] [place] [address] Social History Tobacco Use Types Packs/Day Years Used Date Smoking Tobacco: Former Cigarettes Q uit: 1985 Smokeless Tobacco: Never Alcohol Use Standard Drinks/Week Comments Not Currently 0 (1 standard drink = 0.6 oz pur e alcohol) [facility] Utilities Answer Date Recorded In the past 12 months has [employer], gas, oil, or water company threatened to [...] PM CDT Legal Sex Male 8:22 AM ADVANCED REGISTERED NURSE Gender Identity Male 03/12/2024 1:38 PM CDT [...] (Latest Contact Info) Description 10/01/2024 8:15 AM ADVANCED REGISTERED NURSE Comprehensive Visit Department of Neurology in [address] [phone] Dillon Ozuna APRN, Alfonso.N.P., M.S. [address] [place] [phone] Pam Hillman M.S., CCC-HOME ECONOMICS EXTENSION WORKER [address] [place] [phone] 10/01/2024 9:00 AM ADVANCED REGISTERED NURSE Appointment Department of Radiology, [facility], in [address] [phone] Dillon Ozuna APRN, Alfonso.N.P., M.S. [address] [place] [phone] Pam Hillman M.S., CCC-HOME ECONOMICS EXTENSION WORKER [address] [place] [phone] 10/01/2024 9:45 AM ADVANCED REGISTERED NURSE Clinical Support Department of Neurology in [address] [phone] Dillon Ozuna APRN, C.N.P., M.S. [address] [place] [phone] Pam Hillman M.S., CCC-HOME ECONOMICS EXTENSION WORKER [address] [place] [phone] 10/01/2024 11:00 AM ADVANCED REGISTERED NURSE Office Visit Division of Endocrinology in [place], [place] [address] [place] [phone] Dillon Ozuna APRN, C.N.P., M.S. [address] [place] [phone] 10/15/2024 3:15 PM ADVANCED REGISTERED NURSE Office Visit Department of Otorhinolaryngology in [place], [place] [address] [place] [phone] Rafal Rankin M.D. [address] [place] [phone] 10/22/2024 8:30 AM ADVANCED REGISTERED NURSE Clinical Communication Virtual Review in [address] [phone] 10/25/2024 10:30 AM ADVANCED REGISTERED NURSE Comprehensive Visit Department of Neurology in [address] [phone] Oziel Odonnell M.D. [address] [place] [phone] 11/15/2024 11:15 AM ADVANCED REGISTERED NURSE Clinical Communication Virtual Review in [address] [phone] 11/18/2024 3:00 PM ADVANCED REGISTERED NURSE Ancillary Procedure Department of Ophthalmology in [address] [phone] 11/18/2024 3:30 PM ADVANCED REGISTERED NURSE Office Visit Department of Ophthalmology in [place], [place] [address] [place] [phone] Peña Carver M.D. [address] [place] [phone] documented as of this encounter Visit Diagnoses Not on filedocumented in this encounter Care Teams Truck And Transport Mechanic Relationship Specialty Start Date End Date Elsewhere, Pcp PCP - General Internal Medicine 02/26/24 documented as of this encounter
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
--- OUTSIDE RECORDS SUMMARY | 2024-09-07 17:31 | XMS_ITS | Encounter Summary ---
Author Organization [facility] Address [address] [place] [address] Care Team Providers Care Leadite Worker Name Role Phone Elsewhere, Pcp Primary Care Provider Unavailabl e Reason for Referral * Outpatient (Routine) - Closed Specialty Diagnoses / Procedures Referred By Karine velasco Referred To Contact Diagnoses Sialorrhea Procedures US Guidance Intraoperative Rafal Rankin M.D. 200 [place] [address] Phone: tel: fax: [facility] Referral ID Status Reason Start Date Expiration Date Visits Re quested Visits Authorized [id number] Closed 06/19/2024 06/19/2025 1 1 Reason for Visit * Auth/Cert (Routine) Specialty Diagnoses / Procedures Referred By Karine velasco Referred To Contact Diagnoses Sialorrhea Sialorrhea [K11.7] Procedures [place] CHEMODENERV PAROTID SUBMAN INJECTION BOTOX TO SALIVARY GLANDS 100 units total (25 units into each gland), ULTRASOUND GUIDANCE; PROCEED INDICATED Rafal Rankin M.D. [address] [place] [address] Phone: tel: fax: Referral ID Status Reason Start Date Expiration Date Visits Re quested Visits Authorized [id number] 1 1 Encounter Details Date Type Department Care Team (Latest Contact Info) Description 07/23/2024 10:00 AM CDT - 07/23/2024 11:18 AM CDT Hospital Encounter Department of Radiology, [facility] in [place], [place] [address] [place] [phone] Rafal Rankin M.D. [address] [place] [address] Sialorrhea Discharge Disposition: Home or Self Care Social History Tobacco Use Types Packs/Day Years Used Date Smoking Tobacco: Former Cigarettes Q uit: 1985 Smokeless Tobacco: Never Alcohol Use Standard Drinks/Week Comments Not Currently 0 (1 standard drink = 0.6 oz pur e alcohol) [facility] Utilities Answer Date Recorded In the past 12 months has [facility] [employer] gas, oil, or water [employer] threatened to shut off services in your [...] your living situation today? I have a [facility] to [facility] 03/12/2024 Sex and Gender Information Value Date Recorded Sex Assigned at Male 03/12/2024 1:38 PM CDT Legal Sex Male 8:22 AM RELIABILITY TECHNICIANS Gender Identity Male 03/12/2024 1:38 PM CDT [...] times a day. 120 packet 3 05/07/2024 finasteride (PROSCAR) 5 mg tablet Administer 1 [...] equipment (DME). Anival Kelley feed bag Ref# [id number]. Change bag every 24 hours. 03/27/2024 UNABLE TO FIND 1 each as needed (5 times daily for flushes as needed.). durable medical equipment (DME) 12ml enteral syringe [employer] with [employer]CTOR. 03/19/2024 documented as of this encounter Plan of Treatment Upcoming Encounters Date Type Department Care Team (Latest Contact Info) Description 10/01/2024 8:15 AM [employer]IABILITY TECHNICIANS Comprehensive Visit Department of Neurology in [address] [phone] Dillon Ozuna APRN, C.N.P., M.S. [address] [place] [phone] Pam Hillman M.S., [facility] CRM DEVELOPER [address] [place] [phone] 10/01/2024 9:00 AM RELIABILITY TECHNICIANS Appointment Department of Radiology, [facility], in [place], [place] [address] [place] [phone] Dillon Ozuna APRN, C.N.P., M.S. [address] [place] [phone] Pam Hillman M.S., [facility] [employer] DEVELOPER [address] [place] [phone] 10/01/2024 9:45 AM RELIABILITY TECHNICI[employer] Clinical Support Department of Neurology in [place], [place] [address] [place] [phone] Dillon Ozuna APRN, C.N.P., M.S. [address] [place] [phone] Pam Hillman M.S., [facility] [employer] DEVELOPER [address] [place] [phone] 10/01/2024 11:00 AM RELIABILITY TECHNICI[employer] Office Visit Division of Endocrinology in [place], [place] [address] [place] [phone] Dillon Ozuna APRN, C.N.P., M.S. [address] [place] [phone] 10/15/2024 3:15 PM RELIABILITY TECHNICIANS Office Visit Department of Otorhinolaryngology in [address] [phone] Rafal Rankin M.D. [address] [place] [phone] 10/22/2024 8:30 AM RELIABILITY TECHNICIANS Clinical Communication Virtual Review in [address] [phone] 10/25/2024 10:30 AM RELIABILITY TECHNICI[employer] Comprehensive Visit Department of Neurology in [address] [phone] Oziel Odonnell M.D. [address] [place] [phone] 11/15/2024 11:15 AM RELIABILITY TECHNICIANS Clinical Communication Virtual Review in [address] [phone] 11/18/2024 3:00 PM RELIABILITY TECHNICI[employer] Ancillary Procedure Department of Ophthalmology in [address] [phone] 11/18/2024 3:30 PM [employer]IABILITY TECHNICI[employer] Office Visit Department of Ophthalmology in [place], [place] [address] [place] [address] Peña Carver M.D. [address] [place] [phone] documented as of this encounter Procedures Procedure [...] M.D. IMG US PROCEDURES Final Res ult documented in this encounter Visit Diagnoses Diagnosis Sialorrhea documented in this encounter Care Teams Leadite Worker Relationship Specialty Start Date End Date Elsewhere, Pcp PCP - General Internal Medicine 02/26/24 documented as of this encounter
--- OUTSIDE RECORDS SUMMARY | 2024-09-07 17:31 | XMS_ITS | Encounter Summary ---
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 [address] [place] [address] Phone: tel: fax: [facility] Referral ID Status Reason Start Date Expiration Date V isits Requested Visits Authorized [id number] Authorized 08/06/2024 02/05/2026 1 1 Encounter Details Date Type Department Care Team (Latest Contact Info) Description 08/06/2024 Orders Only Department of Otorhinolaryngology in [place], [place] [address] [place] [address] Rafal Rankin M.D. [address] [place] [phone] Traumatic Subarachnoid Hemorrhage Without Loss Of Consciousness [...] PM CDT Legal Sex Male 8:22 AM SODDER Gender Identity Male 03/12/2024 1:38 PM CDT Sexual Orientation Straight 03/12/2024 1: 38 PM CDT documented as of this encounter Plan of Treatment Upcoming Encounters Date Type Department Care Team (Latest Contact Info) Description 10/01/2024 8:15 AM SODDER Comprehensive Visit Department of Neurology in [address] [phone] Dillon Ozuna APRN, C.N.P., M.S. [address] [place] [phone] Pam Hillman M.S., CCC-RENAL TECHNICIAN [address] [place] [phone] 10/01/2024 9:00 AM SODDER Appointment Department of Radiology, [facility], in [address] [phone] Dillon Ozuna APRN, Alfonso.N.P., M.S. [address] [place] [phone] Pam Hillman M.S., CCC-RENAL TECHNICIAN [address] [place] [phone] 10/01/2024 9:45 AM SODDER Clinical Support Department of Neurology in [address] [phone] Dillon Ozuna APRN, C.N.P., M.S. [address] [place] [phone] Pam Hillman M.S., CCC-RENAL TECHNICIAN [address] [place] [phone] 10/01/2024 11:00 AM SODDER Office Visit Division of Endocrinology in [address] [phone] Dillon Ozuna APRN, C.N.P., M.S. [address] [place] [phone] 10/15/2024 3:15 PM SODDER Office Visit Department of Otorhinolaryngology in [address] [phone] Rafal Rankin M.D. [address] [place] [phone] 10/22/2024 8:30 AM SODDER Clinical Communication Virtual Review in [address] [phone] 10/25/2024 10:30 AM SODDER Comprehensive Visit Department of Neurology in [address] [phone] Oziel Odonnell M.D. [address] [place] [phone] 11/15/2024 11:15 AM SODDER Clinical Communication Virtual Review in [address] [phone] 11/18/2024 3:00 PM SODDER Ancillary Procedure Department of Ophthalmology in [address] [phone] 11/18/2024 3:30 PM SODDER Office Visit Department of Ophthalmology in [address] [phone] Peña Carver M.D. 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
--- OUTSIDE RECORDS SUMMARY | 2024-09-07 17:31 | XMS_ITS | Encounter Summary ---
Author Organization [facility] Address [address] [place] [address] Care Team Providers Care Medical Staff Services Coordinator Name Role Phone Elsewhere, Pcp Primary Care Provider Unavailabl e Reason for Visit * Auth/Cert (Routine) Specialty Diagnoses / Procedures Referred By Contwaldemar t Referred To Contact Diagnoses Sialorrhea Sialorrhea [K11.7] Procedures [place] CHEMODENERV PAROTID SUBMAN INJECTION BOTOX TO SALIVARY GLANDS 100 units total (25 units into each gland), ULTRASOUND GUIDANCE; PROCEED INDICATED Rafal Rankin M.D. [address] [place] [phone] Phone: tel: fax: Referral ID Status Reason Start Date Expiration Date Visits Re quested Visits Authorized [id number] 1 1 Encounter Details Date Type Department Care Team (Late st Contact Info) Description 07/23/2024 1:12 PM CDT Anesthesia Event RST ROMB MAIN OR [address] [place] [phone] Tayo Bradford D.O. [address] [place] [phone] Alan Mchugh M.D. [address] [place] [phone] Anesthesia Record Procedure Summary Procedure Name Responsible [...] disk); Left, Lower, Quadrant (abdomen); Small bore (ENFit??); 08/20/24; 1509 05/15/24 0000 by Ankit Medina, R.N. 08/20/24 1509 by Robert Canales, R.NEdith Peripheral IV Placement Date: 07/14 ; Placement Time: 1259; Catheter Size: 20 G; Orientation: Distal, Left, Lower, Posterior; Location: Forearm; Site Prep: Chlorhexidine (Preferred); Technique: (2); Inserted by: basilio; Insertion Attempts: 1; Removal Date: 07/23/24; Removal Time: 1403; Removal Reason: Completion of therapy 07/23/24 1259 by Ever Cornell 07/23/24 1403 by Ami Randall R.N. documented in this encounter Social History Tobacco Use Types Packs/Day Years Used Date Smoking Tobacco: Former Cigarettes Q uit: 1984 Smokeless Tobacco: Never Alcohol Use Standard Drinks/Week Comments Not Currently 0 (1 standard drink = 0.6 oz pur e alcohol) [facility] Utilities Answer Date Recorded In the past 12 months has e [employer], oil, or water [employer] threatened to shut off services in your [...] living situation today? I have a [facility] place to live 03/12/2024 Sex and Gender Information Value Date Recorded Sex Assigned at Male 03/12/2024 1:38 PM CDT Legal Sex Male 8:22 AM BRICK GRADER Gender Identity Male 03/12/2024 1:38 PM CDT Sexual Orientation Straight 03/12/2024 1: 38 PM CDT documented as of this encounter OR Notes * Anesthesia Postprocedure Evaluation - Tao Laureano M.D. - 07/23/2024 1:47 PM CDT Patient: Vinh Guillen Procedure Summary Date: 07/23/24 Room / Location: [place] [address] / [facility] in [place], [place] Anesthesia Start: 1312 Anesthesia Stop: 1343 [...] Sialorrhea [K11.7] Pre-op diagnosis: Sialorrhea [K11.7]. Location: [address] [facility] / [facility] in [place], [place] Providers: Rafal Rankin M.D. Pertinent components [...] patient / legal guardian, or through an ground layer; patient evaluated and approved for anesthesia / sedation The use of blood products not discussed Approval to Proceed: approved for anesthesia documented in this encounter Plan of Treatment Upcoming Encounters Date Type Department Care Team (Latest Contact Info) Description 10/01/2024 8:15 AM BRICK GRADER Comprehensive Visit Department of Neurology in [place], [place] [address] [place] [address] Dillon Ozuna APRN, C.N.P., M.S. [address] [place] [address] Pam Hillman M.S., [facility] [address] [place] [phone] 10/01/2024 9:00 AM BRICK GRADER Appointment Department of Radiology, [facility], in [place], [place] [address] [place] [address] Dillon Ozuna APRN, C.N.P., M.S. [address] [place] [phone] Pam Hillman M.S., [facility] [address] [place] [phone] 10/01/2024 9:45 AM BRICK GRADER Clinical Support Department of Neurology in [address] [phone] Dillon Ozuna APRN, Alfonso.N.P., M.S. [address] [place] [phone] Pam Hillman, M.S., [facility] [phone] 10/01/2024 11:00 AM BRICK GRADER Office Visit Division of Endocrinology in [address] [phone] Dillon Ozuna APRN C.N.P., M.S. [address] [place] [phone] 10/15/2024 3:15 PM BRICK GRADER Office Visit Department of Otorhinolaryngology in [address] [phone] Rafal Rankin M.D. [address] [place] [phone] 10/22/2024 8:30 AM BRICK GRADER Clinical Communication Virtual Review in [place], [place] 200 [place] [address] 10/25/2024 10:30 AM BRICK GRADER Comprehensive Visit Department of Neurology in [place], [place] [address] [place] [phone] Oziel Odonnell M.D. [address] [place] [phone] 11/15/2024 11:15 AM BRICK GRADER Clinical Communication Virtual Review in [place], [place] 200 [place] [phone] 11/18/2024 3:00 PM BRICK GRADER Ancillary Procedure Department of Ophthalmology in [address] [phone] 11/18/2024 3:30 PM BRICK GRADER Office Visit Department of Ophthalmology in [address] [phone] Peña Carver M.D. [address] [place] [phone] documented as of this encounter Visit Diagnoses [...] mL/hr documented in this encounter Care Teams Medical Staff Services Coordinator Relationship Specialty Start Date End Date Elsewhere, Pcp PCP - General Internal Medicine 02/26/24 documented as of this encounter
--- OUTSIDE RECORDS SUMMARY | 2024-09-07 17:31 | XMS_ITS | Encounter Summary ---
Author Organization [facility] Address [address] [place] [address] Care Team Providers Care Head And Neck Surgeon Name Role Phone Elsewhere, Pcp Primary Care Provider Unavailabl e Reason for Visit * Outpatient (Routine) - Closed Specialty Diagnoses / Procedures Referred By Karine t Referred To Contact Otorhinolaryngology Rafal Rankin M.D. [address] [place] [address] Phone: tel: fax: [facility] Referral ID Status Reason Start Date Expiration Date Visits Re quested Visits Authorized [id number] Closed 07/17/2024 01/16/2026 1 1 Encounter Details Date Type Department Care Team (Latest Contact Info) Description 07/18/2024 1:00 PM CDT Office Visit Department of Otorhinolaryngology in [place], [place] [address] [place] [phone] Rafal Rankin M.D. [address] [place] [phone] Paralysis Vocal Cord Bilateral Complete (Primary Dx); [...] PM CDT Legal Sex Male 8:22 AM CHILD CARE LEAD TEACHER Gender Identity Male 03/12/2024 1:38 PM CDT Sexual Orientation Straight 03/12/2024 1: 38 PM CDT documented as of this encounter Progress Notes * Rafal Rankin M.D. - 07/18/2024 1:00 PM CDT [facility] CHIEF COMPLAINT/PURPOSE OF VISIT: Follow [...] returns after seeing Dr. Cervantes yesterday at [facility]. [place] was a little down today as [...] diameter, but time will tell. He has [facility] study October 3 and I am curious to see if [...] (Latest Contact Info) Description 10/01/2024 8:15 AM CHILD CARE LEAD TEACHER Comprehensive Visit Department of Neurology in [address] [phone] Dillon Ozuna APRN, Alfonso.N.P., M.S. [address] [place] [phone] Pam Hillman, M.S., CCC-MANAGER OF INTERNAL AUDIT [address] [place] [phone] 10/01/2024 9:00 AM CHILD CARE LEAD TEACHER Appointment Department of Radiology, [facility], in [place], [place] [address] [place] [phone] Dillon Ozuna APRN, C.N.P., M.S. [address] [place] [phone] Pam Hillman M.S., CCC-MANAGER OF INTERNAL AUDIT [address] [place] [phone] 10/01/2024 9:45 AM CHILD CARE LEAD TEACHER Clinical Support Department of Neurology in [place], [place] [address] [place] [phone] Dillon Ozuna APRN, Alfonso.N.P., M.S. [address] [place] [phone] Pam Hillman M.S., [facility]-MANAGER OF INTERNAL AUDIT [address] [place] [phone] 10/01/2024 11:00 AM CHILD CARE LEAD TEACHER Office Visit Division of Endocrinology in [address] [phone] Dillon Ozuna APRN, C.N.P., M.S. [address] [place] [phone] 10/15/2024 3:15 PM CHILD CARE LEAD TEACHER Office Visit Department of Otorhinolaryngology in [address] [phone] Rafal Rankin M.D. [address] [place] [phone] 10/22/2024 8:30 AM CHILD CARE LEAD TEACHER Clinical Communication Virtual Review in [address] [phone] 10/25/2024 10:30 AM CHILD CARE LEAD TEACHER Comprehensive Visit Department of Neurology in [address] [phone] Oziel Odonnell M.D. [address] [place] [phone] 11/15/2024 11:15 AM CHILD CARE LEAD TEACHER Clinical Communication Virtual Review in [address] [phone] 11/18/2024 3:00 PM CHILD CARE LEAD TEACHER Ancillary Procedure Department of Ophthalmology in [address] [place] [address] 11/18/2024 3:30 PM CHILD CARE LEAD TEACHER Office Visit Department of Ophthalmology in [place], [place] [address] [place] [address] Peña Carver M.D. 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
--- OUTSIDE RECORDS SUMMARY | 2024-09-07 17:31 | XMS_ITS | Encounter Summary ---
Author Organization [facility] Address [address] [place] [address] Care Team Providers Care Registered Nursing Professor Name Role Phone Elsewhere, Pcp Primary Care Provider Unavailabl e Reason for Referral * Outpatient (Routine) - Closed Specialty Diagnoses / Procedures Referred By Contac t Referred To Contact Endocrinology Diagnoses Dietary Counseling And Surveillance For Enteral Nutrition Dysphagia Gastrojejunostomy Percutaneous Status Post Cristiane Palacio APRN, C.N.P., D.N.P. [address] [place] [phone] Phone: tel: fax: [facility] Referral ID Status Reason Start Date Expiration Date Visits Re quested Visits Authorized [id number] Closed 08/12/2024 02/11/2026 1 1 Scheduling Instructions Please schedule for RD and provider same day. * Outpatient (Routine) - Closed Specialty Diagnoses / Procedures Referred By Contac t Referred To Contact Nutrition Cristiane Palacio APRN, C.N.P., D.N.P. [address] [place] [phone] Phone: tel: fax: [facility] Referral ID Status Reason Start Date Expiration Date Visits Re quested Visits Authorized [id number] Closed 08/12/2024 02/11/2026 1 1 Scheduling Instructions Please schedule for RD and provider same day. Ok to use an RDN 11am Encounter Details Date Type Department Care Team (Late st Contact Info) Description 08/12/2024 Orders Only Department of Nutrition and Diabetes Education in [place], [place] [address] [place] [phone] Victoria Muir M.S., RDN, LD [address] [place] [phone] Dietary Counseling And Surveillance For Enteral Nutrition (Primary Dx); Dysphagia; Gastrojejunostomy Percutaneous Status Post Social History Tobacco Use Types Packs/Day Years Used Date Smoking Tobacco: Former Cigarettes Q uit: 1985 Smokeless Tobacco: Never Alcohol Use Standard Drinks/Week Comments Not Currently 0 (1 standard drink = 0.6 oz pur e alcohol) [facility] Utilities Answer Date Recorded In the past 12 months has e [employer], gas, oil, or water [employer] threatened to shut off services in your [...] PM CDT Legal Sex Male 8:22 AM BASE DRAW OPERATOR Gender Identity Male 03/12/2024 1:38 PM CDT Sexual Orientation Straight 03/12/2024 1: 38 PM CDT documented as of this encounter Plan of Treatment Upcoming Encounters Date Type Department Care Team (Latest Contact Info) Description 10/01/2024 8:15 AM BASE DRAW OPERATOR Comprehensive Visit Department of Neurology in [place], [place] [address] [place] [phone] Dillon Ozuna APRN, C.N.P., M.S. [address] [place] [phone] Pam Hillman M.S., [facility]-SPECTROGRAPHIC ANALYST [address] [place] [phone] 10/01/2024 9:00 AM BASE DRAW OPERATOR Appointment Department of Radiology, [facility], in [place], [place] [address] [place] [phone] Dillon Ozuna APRN, C.N.P., M.S. [address] [place] [phone] Pam Hillman M.S., [facility] [address] [place] [phone] 10/01/2024 9:45 AM BASE DRAW OPERATOR Clinical Support Department of Neurology in [address] [phone] Dillon Ozuna APRN, C.N.Romero., M.S. [address] [place] [phone] Pam Hillman M.S., [facility] [address] [place] [phone] 10/01/2024 11:00 AM BASE DRAW OPERATOR Office Visit Division of Endocrinology in [address] [phone] Dillon Ozuna APRN, C.N.P., M.S. [address] [place] [phone] 10/15/2024 3:15 PM BASE DRAW OPERATOR Office Visit Department of Otorhinolaryngology in [address] [phone] Rafal Rankin M.D. [address] [place] [phone] 10/22/2024 8:30 AM BASE DRAW OPERATOR Clinical Communication Virtual Review in [address] [phone] 10/25/2024 10:30 AM BASE DRAW OPERATOR Comprehensive Visit Department of Neurology in [address] [place] [address] Oziel Odonnell M.D. [address] [place] [phone] 11/15/2024 11:15 AM BASE DRAW OPERATOR Clinical Communication Virtual Review in [place], [place] 200 [place] [address] 11/18/2024 3:00 PM BASE DRAW OPERATOR Ancillary Procedure Department of Ophthalmology in [place], [place] [address] [place] [phone] 11/18/2024 3:30 PM BASE DRAW OPERATOR Office Visit Department of Ophthalmology in [address] [phone] Peña Carver M.D. [address] [place] [phone] Scheduled Referrals Name Type Priority Associated Diagnoses Orde r Schedule Nutrition office visit (clinic) Outpatient Referral Routine Expected: 08/12/2024, Expires: 11/11/2025 Endocrinology office visit (clinic) Outpatient Referral Routine Dietary Counseling And Surveillance For Enteral Nutrition Dysphagia Gastrojejunostomy Percutaneous Status Post Expected: 08/12/2024, Expires: 11/11/2025 documented as of this encounter Visit Diagnoses Diagnosis Dietary Counseling And Surveillance For Enteral Nutrition- Primary Dysphagia Gastrojejunostomy Percutaneous Status Post documented in this encounter Care Teams Registered Nursing Professor Relationship Specialty Start Date End Date Elsewhere, Pcp PCP - General Internal Medicine 02/26/24 documented as of this encounter
--- OUTSIDE RECORDS SUMMARY | 2024-09-07 17:31 | XMS_ITS | Encounter Summary ---
Author Organization [facility] Address [address] [place] [address] Care Team Providers Care Marine Engine Driver Name Role Phone Elsewhere, Pcp Primary Care Provider Unavailabl e Reason for Visit * Auth/Cert (Routine) Specialty Diagnoses / Procedures Referred By Karine t Referred To Contact Diagnoses Sialorrhea Sialorrhea [K11.7] Procedures [place] CHEMODENERV PAROTID SUBMAN INJECTION BOTOX TO SALIVARY GLANDS 100 units total (25 units into each gland), ULTRASOUND GUIDANCE; PROCEED INDICATED Rafal Rankin M.D. 200 [place] [address] Phone: tel: fax: Referral ID Status Reason Start Date Expiration Date Visits Re quested Visits Authorized [id number] 1 1 Encounter Details Date Type Department Care Team (Late st Contact Info) Description 07/23/2024 1:46 PM CDT - 07/23/2024 2:44 PM CDT Surgery RST ROMB MAIN OR [address] [place] [phone] Rafal Rankin M.D. [address] [place] [phone] INJECTION BOTOX TO SUBMANDIBULAR GLANDS 50 units total, 25 units into each gland, ULTRASOUND GUIDANCE. Social History Tobacco Use Types Packs/Day Years Used Date Smoking Tobacco: Former Cigarettes Q uit: 1985 Smokeless Tobacco: Never Alcohol Use Standard Drinks/Week Comments Not Currently 0 (1 standard drink = 0.6 oz pur e alcohol) [facility] Utilities Answer Date Recorded In the past 12 months has e [employer], gas, oil, or water [employer] threatened to shut off services in your [...] your living situation today? I have a [facility] place to live 03/12/2024 Sex and Gender Information Value Date Recorded Sex Assigned at Male 03/12/2024 1:38 PM CDT Legal Sex Male 8:22 AM VENEER LAYER Gender Identity Male 03/12/2024 1:38 PM CDT [...] 1 each daily. durable medical equipment (DME). [employer] feed bag Ref# [id number]. Change bag every 24 hours. 03/27/2024 UNABLE [...] anesthesia team for recovery. Ailyn Samayoa M.D. Cosigned by Rafal Rankin M.D. at 07/23/2024 2:48 PM CDT documented in this encounter Plan of Treatment Upcoming Encounters Date Type Department Care Team (Latest Contact Info) Description 10/01/2024 8:15 AM VENEER LAYER Comprehensive Visit Department of Neurology in [place], [place] [address] [place] [phone] Dillon Ozuna APRN, C.N.P., M.S. [address] [place] [phone] Pam Hillman M.S., [facility] [phone] 10/01/2024 9:00 AM VENEER LAYER Appointment Department of Radiology, [facility], in [address] [phone] Dillon Ozuna APRN, C.N.P., M.S. [address] [place] [phone] Pam Hillman M.S., [facility]-[address] [phone] 10/01/2024 9:45 AM VENEER LAYER Clinical Support Department of Neurology in [address] [phone] Dillon Ozuna APRN, C.N.P., M.S. [address] [place] [phone] Pam Hillman M.S., [facility]-[address] [phone] 10/01/2024 11:00 AM VENEER LAYER Office Visit Division of Endocrinology in [address] [phone] Dillon Ozuna APRN, C.N.P., M.S. [address] [place] [phone] 10/15/2024 3:15 PM VENEER LAYER Office Visit Department of Otorhinolaryngology in [place], [place] [address] [place] [phone] Rafal Rankin M.D. [address] [place] [phone] 10/22/2024 8:30 AM VENEER LAYER Clinical Communication Virtual Review in [address] [phone] 10/25/2024 10:30 AM VENEER LAYER Comprehensive Visit Department of Neurology in [address] [phone] Oziel Odonnell M.D. [address] [place] [phone] 11/15/2024 11:15 AM VENEER LAYER Clinical Communication Virtual Review in [address] [phone] 11/18/2024 3:00 PM VENEER LAYER Ancillary Procedure Department of Ophthalmology in [address] [phone] 11/18/2024 3:30 PM VENEER LAYER Office Visit Department of Ophthalmology in [address] [phone] Peña Carver M.D. [address] [place] [phone] documented as of this encounter Procedures Procedure Name Priority Date/Time Associated Diagnosis Comments INJECTION BOTOX 07/23/2024 12:56 PM CDT Sialorrhea Case Notes LEARNING AND DEVELOPMENT SPECIALIST at 11:23 documented in this encounter Visit [...] injection documented in this encounter Care Teams Marine Engine Driver Relationship Specialty Start Date End Date Elsewhere, Pcp PCP - General Internal Medicine 02/26/24 documented as of this encounter
--- OUTSIDE RECORDS SUMMARY | 2024-09-07 17:31 | XMS_ITS | Encounter Summary ---
Author Organization [facility] Address [address] [place] [address] Care Team Providers Care Bonderizer Name Role Phone Elsewhere, Pcp Primary Care Provider Unavailabl e Reason for Visit * Auth/Cert (Routine) Specialty Diagnoses / Procedures Referred By Contwaldemar t Referred To Contact Diagnoses Sialorrhea Sialorrhea [K11.7] Procedures OK CHEMODENERV PAROTID SUBMAN INJECTION BOTOX TO SALIVARY GLANDS 100 units total (25 units into each gland), ULTRASOUND GUIDANCE; PROCEED INDICATED Rafal Rankin M.D. 200 [place] [address] Phone: tel: fax: Referral ID Status Reason Start Date Expiration Date Visits Re quested Visits Authorized [id number] 1 1 Encounter Details Date Type Department Care Team (Latest Contact Info) Description 07/23/2024 11:19 AM CDT - 07/23/2024 2:16 PM CDT Hospital Encounter [facility] [address] [place] [address] Rafal Rankin M.D. 200 [place] [address] Discharge Disposition: Home or Self Care Social History Tobacco Use Types Packs/Day Years Used Date Smoking Tobacco: Former Cigarettes Q uit: 1985 Smokeless Tobacco: Never Alcohol Use Standard Drinks/Week Comments Not Currently 0 (1 standard drink = 0.6 oz pur e alcohol) [facility] Utilities Answer Date Recorded In the past 12 months has th e Daily Deals for Moms, gas, oil, or water company threatened to [...] living situation today? I have a [facility] place to live 03/12/2024 Sex and Gender Information Value Date Recorded Sex Assigned at Male 03/12/2024 1:38 PM CDT Legal Sex Male 8:22 AM BLISTER PACK OPERATOR Gender Identity Male 03/12/2024 1:38 PM [...] equipment (DME). Anival Kelley feed bag Ref# [id number]. Change bag every 24 hours. 03/27/2024 UNABLE [...] (Latest Contact Info) Description 10/01/2024 8:15 AM BLISTER PACK OPERATOR Comprehensive Visit Department of Neurology in [place], [place] [address] [place] [phone] Dillon Ozuna APRN, C.NRon., M.S. [address] [place] [phone] Pam Hillman M.S., [facility] [address] [place] [phone] 10/01/2024 9:00 AM BLISTER PACK OPERATOR Appointment Department of Radiology, [facility], in [place], [place] [address] [place] [address] Dillon Ozuna APRN, C.NRon., M.S. [address] [place] [phone] Pam Hillman M.S., [facility] [phone] 10/01/2024 9:45 AM BLISTER PACK OPERATOR Clinical Support Department of Neurology in [address] [phone] Dillon Ozuna APRN, C.NRon., M.S. [address] [place] [phone] Pam Hillman M.S., [facility] [address] [place] [phone] 10/01/2024 11:00 AM BLISTER PACK OPERATOR Office Visit Division of Endocrinology in [place], [place] [address] [place] [phone] Dillon Ozuna APRN, C.NRon., M.S. [address] [place] [phone] 10/15/2024 3:15 PM BLISTER PACK OPERATOR Office Visit Department of Otorhinolaryngology in [place], [place] [address] [place] [phone] Rafal Rankin M.D. [address] [place] [phone] 10/22/2024 8:30 AM BLISTER PACK OPERATOR Clinical Communication Virtual Review in [place], [place] 200 [place] [address] 10/25/2024 10:30 AM BLISTER PACK OPERATOR Comprehensive Visit Department of Neurology in [place], [place] [address] [place] [phone] Oziel Odonnell M.D. [address] [place] [phone] 11/15/2024 11:15 AM BLISTER PACK OPERATOR Clinical Communication Virtual Review in [address] [phone] 11/18/2024 3:00 PM BLISTER PACK OPERATOR Ancillary Procedure Department of Ophthalmology in [address] [phone] 11/18/2024 3:30 PM BLISTER PACK OPERATOR Office Visit Department of Ophthalmology in [address] [phone] Peña Carver M.D. [address] [place] [phone] documented as of this encounter Procedures Procedure Name Priority Date/Time Associated Diagnosis Comments INJECTION BOTOX 07/23/2024 12:56 PM CDT Sialorrhea Case Notes BOAT ENGINES INSTALLER at 11:23 documented in this encounter Visit [...] right submandibular gland)1332 (Given - Provider: Rahel J Yao, M.D. - Comment: left submandibular gland) ondansetron [...] injection documented in this encounter Care Teams Bonderizer Relationship Specialty Start Date End Date Elsewhere, Pcp PCP - General Internal Medicine 02/26/24 documented as of this encounter
--- OUTSIDE RECORDS SUMMARY | 2024-09-07 17:31 | XMS_ITS | Encounter Summary ---
Author Organization [facility] Address [address] [place] [address] Care Team Providers Care Staffing Analyst Name Role Phone Elsewhere, Pcp Primary Care Provider Unavailabl e Encounter Details Date Type Department Care Team (Late st Contact Info) Description 08/14/2024 Clinical Communication Department of Nutrition and Diabetes Education in [place], [place] [address] [place] [address] Victoria Muir M.S., RDN, LD [address] [place] [address] Social History Tobacco Use Types Packs/Day Years Used Date Smoking Tobacco: Former Cigarettes Q uit: 1985 Smokeless Tobacco: Never Alcohol Use Standard Drinks/Week Comments Not Currently 0 (1 standard drink = 0.6 oz pur e alcohol) [facility] Utilities Answer Date Recorded In [...] your living situation today? I have a [facility] place to live 03/12/2024 Sex and Gender Information Value Date Recorded Sex Assigned at Male 03/12/2024 1:38 PM CDT Legal Sex Male 8:22 AM CAR SHIFTER Gender Identity Male 03/12/2024 1:38 PM CDT Sexual Orientation Straight 03/12/2024 1: 38 PM CDT documented as of this encounter Miscellaneous Notes * Telephone Encounter - Victoria Muir M.S., RDN, LD - 08/14/2024 2:09 PM CDT Returned Kerry's call. Zofran is ok to administer via jejunal evelin Naomi recommended this yesterday and Kerry gave it last night and today via jejunal port. They decreased feeds to 100 mL/hr, but Vinh is still not feeling well. They are keeping him well hydrated. documented in this encounter Plan of Treatment Upcoming Encounters Date Type Department Care Team (Latest Contact Info) Description 10/01/2024 8:15 AM CAR SHIFTER Comprehensive Visit Department of Neurology in [address] [phone] Dillon Ozuna APRN, C.N.P., M.S. [address] [place] [phone] Pam Hillman M.S., [facility] [phone] 10/01/2024 9:00 AM CAR SHIFTER Appointment Department of Radiology, [facility], in [address] [phone] Dillon Ozuna APRN, Alfonso.N.P., M.S. [address] [place] [phone] Pam Hillman M.S., [facility] [phone] 10/01/2024 9:45 AM CAR SHIFTER Clinical Support Department of Neurology in [address] [phone] Dillon Ozuna APRN, C.N.P., M.S. [address] [place] [phone] Pam Hillman M.S., [facility] [phone] 10/01/2024 11:00 AM CAR SHIFTER Office Visit Division of Endocrinology in [place], [place] [address] [place] [phone] Dillon Ozuna APRN, C.NRon., M.S. [address] [place] [phone] 10/15/2024 3:15 PM CAR SHIFTER Office Visit Department of Otorhinolaryngology in [place], [place] [address] [place] [phone] Rafal Rankin M.D. [address] [place] [phone] 10/22/2024 8:30 AM CAR SHIFTER Clinical Communication Virtual Review in [address] [address] 10/25/2024 10:30 AM CAR SHIFTER Comprehensive Visit Department of Neurology in [place], [place] [address] [place] [phone] Oziel Odonnell M.D. [address] [place] [phone] 11/15/2024 11:15 AM CAR SHIFTER Clinical Communication Virtual Review in [address] [phone] 11/18/2024 3:00 PM CAR SHIFTER Ancillary Procedure Department of Ophthalmology in [address] [phone] 11/18/2024 3:30 PM CAR SHIFTER Office Visit Department of Ophthalmology in [address] [phone] Peña Carver M.D. [address] [place] [phone] documented as of this encounter Visit Diagnoses Not on filedocumented in this encounter Care Teams Staffing Analyst Relationship Specialty Start Date End Date Elsewhere, Pcp PCP - General Internal Medicine 02/26/24 documented as of this encounter
--- OUTSIDE RECORDS SUMMARY | 2024-09-07 17:31 | XMS_ITS | Encounter Summary ---
Author Organization [facility] Address [address] [place] [address] Care Team Providers Care Greens Cutter Name Role Phone Elsewhere, Pcp Primary Care [...] 0.6 oz pur e alcohol) [facility] Utilities Answer Date Recorded In the past 12 months has e Super, gas, oil, or water [employer] threatened to shut off services in your [...] your living situation today? I have a [facility] place to live 03/12/2024 Sex and Gender Information Value Date Recorded Sex Assigned at Male 03/12/2024 1:38 PM CDT Legal Sex Male 8:22 AM HOTEL ATTENDANT Gender Identity Male 03/12/2024 1:38 PM CDT Sexual Orientation Straight 03/12/2024 1: 38 PM CDT documented as of this encounter Plan of Treatment Upcoming Encounters Date Type Department Care Team (Latest Contact Info) Description 10/01/2024 8:15 AM HOTEL ATTENDANT Comprehensive Visit Department of Neurology in [place], [place] 200 [place] [address] Dillon Ozuna APRN, C.N.P., M.S. 200 [place] [address] Pam Hillman M.S., [facility] [address] [place] [phone] 10/01/2024 9:00 AM HOTEL ATTENDANT Appointment Department of Radiology, [facility], in [place], [place] [address] [place] [address] Dillon Ozuna APRN, C.N.P., M.S. [address] [place] [phone] Pam Hillman M.S., [facility] [address] [place] [phone] 10/01/2024 9:45 AM HOTEL ATTENDANT Clinical Support Department of Neurology in [place], [place] [address] [place] [phone] Dillon Ozuna APRN, C.N.P., M.S. [address] [place] [phone] Pam Hillman M.S., [facility] [address] [place] [phone] 10/01/2024 11:00 AM HOTEL ATTENDANT Office Visit Division of Endocrinology in [place], [place] [address] [place] [phone] Dillon Ozuna APRN, C.N.P., M.S. [address] [place] [phone] 10/15/2024 3:15 PM HOTEL ATTENDANT Office Visit Department of Otorhinolaryngology in [place], [place] [address] [place] [phone] Rafal Rankin M.D. [address] [place] [phone] 10/22/2024 8:30 AM HOTEL ATTENDANT Clinical Communication Virtual Review in [address] [phone] 10/25/2024 10:30 AM HOTEL ATTENDANT Comprehensive Visit Department of Neurology in [address] [address] Oziel Odonnell M.D. [address] [place] [phone] 11/15/2024 11:15 AM HOTEL ATTENDANT Clinical Communication Virtual Review in [address] [phone] 11/18/2024 3:00 PM HOTEL ATTENDANT Ancillary Procedure Department of Ophthalmology in [address] [address] 11/18/2024 3:30 PM HOTEL ATTENDANT Office Visit Department of Ophthalmology in [address] [phone] Peña Carver M.D. [address] [place] [phone] documented as of this encounter Procedures Procedure [...] IMAGING PROCE DURES Final Result IIMS NA documented in this encounter Visit Diagnoses Not on filedocumented in this encounter Care Teams Greens Cutter Relationship Specialty Start Date End Date Elsewhere, Pcp PCP - General Internal Medicine 02/26/24 documented as of this encounter
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
--- OUTSIDE RECORDS SUMMARY | 2024-09-07 17:31 | XMS_ITS | Encounter Summary ---
Author Organization [facility] Address [address] [place] [address] Care Team Providers Care Billet Cutter Name Role Phone Elsewhere, Pcp Primary Care Provider Unavailabl e Encounter Details Date Type Department Care Team (Latest Contact Info) Description 08/06/2024 Clinical Communication Department of Otorhinolaryngology in [place], [place] [address] [place] [address] Rafal Rankin M.D. [address] [place] [address] Social History Tobacco Use Types Packs/Day Years Used Date Smoking Tobacco: Former Cigarettes Q uit: 1985 Smokeless Tobacco: Never Alcohol Use Standard Drinks/Week Comments Not Currently 0 (1 standard drink = 0.6 oz pur e alcohol) [facility] Utilities Answer Date Recorded In the [...] your living situation today? I have a [facility] place to live 03/12/2024 Sex and Gender Information Value Date Recorded Sex Assigned at Male 03/12/2024 1:38 PM CDT Legal Sex Male 8:22 AM INFECTIOUS DISEASE TECHNICIAN Gender Identity Male 03/12/2024 1:38 PM CDT [...] (Latest Contact Info) Description 10/01/2024 8:15 AM INFECTIOUS DISEASE TECHNICIAN Comprehensive Visit Department of Neurology in [address] [phone] Dillon Ozuna APRN, C.N.P., M.S. [address] [place] [phone] Pam Hillman, M.S., [facility]-RESEARCH ASSISTANT [address] [place] [phone] 10/01/2024 9:00 AM INFECTIOUS DISEASE TECHNICIAN Appointment Department of Radiology, [facility], in [place], [place] [address] [place] [phone] Dillon Ozuna APRN, C.N.P., M.S. [address] [place] [phone] Pam Hillman M.S., [facility] [address] [place] [phone] 10/01/2024 9:45 AM INFECTIOUS DISEASE TECHNICIAN Clinical Support Department of Neurology in [place], [place] [address] [place] [phone] Dillon Ozuna APRN, C.N.P., M.S. [address] [place] [phone] Pam Hillman M.S., [facility]-RESEARCH ASSISTANT [address] [place] [phone] 10/01/2024 11:00 AM INFECTIOUS DISEASE TECHNICIAN Office Visit Division of Endocrinology in [place], [place] [address] [place] [phone] Dillon Ozuna APRN, C.N.P., M.S. [address] [place] [phone] 10/15/2024 3:15 PM INFECTIOUS DISEASE TECHNICIAN Office Visit Department of Otorhinolaryngology in [place], [place] [address] [place] [phone] Rafal Rankin M.D. [address] [place] [phone] 10/22/2024 8:30 AM INFECTIOUS DISEASE TECHNICIAN Clinical Communication Virtual Review in [place], [place] 200 [place] [address] 10/25/2024 10:30 AM INFECTIOUS DISEASE TECHNICIAN Comprehensive Visit Department of Neurology in [place], [place] [address] [place] [phone] Oziel Odonnell M.D. [address] [place] [phone] 11/15/2024 11:15 AM INFECTIOUS DISEASE TECHNICIAN Clinical Communication Virtual Review in [place], [place] 200 [place] [address] 11/18/2024 3:00 PM INFECTIOUS DISEASE TECHNICIAN Ancillary Procedure Department of Ophthalmology in [place], [place] [address] [place] [address] 11/18/2024 3:30 PM INFECTIOUS DISEASE TECHNICIAN Office Visit Department of Ophthalmology in [place], [place] [address] [place] [address] Peña Carver M.D. [address] [place] [address] documented as of this encounter Visit Diagnoses Not on filedocumented in this encounter Care Teams Billet Cutter Relationship Specialty Start Date End Date Elsewhere, Pcp PCP - General Internal Medicine 02/26/24 documented as of this encounter
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
--- OUTSIDE RECORDS SUMMARY | 2024-09-07 17:31 | XMS_ITS | Encounter Summary ---
Author Organization [facility] Address [address] [place] [address] Care Team Providers Care Drum Worker Name Role Phone Elsewhere, Pcp Primary Care Provider Unavailabl e Reason for Visit * Speech Pathology (Routine) - Authorized Specialty Diagnoses / Procedures Referred By Contac t Referred To Contact Diagnoses Dysphagia Procedures [employer] Dysphagia evaluate and treat Cristiane Palacio APRN, C.N.P., D.N.P. [address] [place] [phone] Phone: tel: fax: [facility] Referral ID Status Reason Start Date Expiration Date V isits Requested Visits Authorized [id number] Authorized 06/18/2024 06/18/2025 99 99 Encounter Details Date Type Department Care Team (Late st Contact Info) Description 08/15/2024 8:00 AM CDT Comprehensive Visit Department of Neurology in [place], [place] [address] [place] [phone] Cristiane Palacio APRN, C.N.P., D.N.P. [address] [place] [phone] Kriss Wharton M.S., CCC-[employer] 200 [place] [address] Dysphagia Social History Tobacco Use Types Packs/Day Years Used Date Smoking Tobacco: Former Cigarettes Q uit: 1985 Smokeless Tobacco: Never Alcohol Use Standard Drinks/Week Comments Not Currently 0 (1 standard drink = 0.6 oz pur e alcohol) [facility] Utilities Answer Date Recorded In the past 12 months has e [employer], gas, oil, or water [employer] threatened to shut off services in your [...] your living situation today? I have a [facility] place to live 03/12/2024 Sex and Gender Information Value Date Recorded Sex Assigned at Male 03/12/2024 1:38 PM CDT Legal Sex Male 8:22 AM PROJECT DESIGNER Gender Identity Male 03/12/2024 1:38 PM CDT Sexual Orientation Straight 03/12/2024 1: 38 PM CDT documented as of this encounter Consult Notes * Kriss Wharton M.S., CCC-[employer] - 08/15/2024 8:00 AM CDT Mr. Guillen presented to today's evaluation session for a repeat video fluoroscopic evaluation. He was recently hospitalized with COVID and aspiration pneumonia and is still not feeling well. He reported nausea today and together we determined that the swallowing evaluation will be rescheduled, we will reach out to get that done. He has a known severe oropharyngeal dysphagia characterized by significant diffuse pharyngeal weakness resulting in aspiration of thin liquids on his study March 22, 2024. He has continued working on swallowing exercises, up until his recent hospitalization. The goal of today's evaluation would have been to determine any gains in swallow function to increase oral trials beyond just ice chips, but otherwise very likely would have revealed that he should continue nutrition, hydration, and medication via non oral means. No charge for today's brief visit. documented in this encounter Plan of Treatment Upcoming Encounters Date Type Department Care Team (Latest Contact Info) Description 10/01/2024 8:15 AM PROJECT DESIGNER Comprehensive Visit Department of Neurology in [place], [place] [address] [place] [phone] Dillon Ozuna APRN, C.N.P., M.S. [address] [place] [phone] Pam Hillman M.SEdith, CCC-[employer] [address] [place] [phone] 10/01/2024 9:00 AM PROJECT DESIGNER Appointment Department of Radiology, [facility], in [place], [place] [address] [place] [phone] Dillon Ozuna APRN, Alfonso.N.P., M.S. [address] [place] [phone] Pam Hillman M.S., [employer] [address] [place] [phone] 10/01/2024 9:45 AM PROJECT DESIGNER Clinical Support Department of Neurology in [place], [place] [address] [place] [phone] Dillon Ozuna APRN, C.N.P., M.S. [address] [place] [phone] Pam Hillman M.S., [facility]-[employer] [address] [place] [phone] 10/01/2024 11:00 AM PROJECT DESIGNER Office Visit Division of Endocrinology in [place], [place] [address] [place] [phone] Dillon Ozuna APRN C.N.P., M.S. [address] [place] [phone] 10/15/2024 3:15 PM PROJECT DESIGNER Office Visit Department of Otorhinolaryngology in [place], [place] [address] [place] [phone] Rafal Rankin M.D. [address] [place] [phone] 10/22/2024 8:30 AM PROJECT DESIGNER Clinical Communication Virtual Review in [place], [place] 200 [place] [address] 10/25/2024 10:30 AM PROJECT DESIGNER Comprehensive Visit Department of Neurology in [place], [place] [address] [place] [phone] Oziel Odonnell M.D. [address] [place] [phone] 11/15/2024 11:15 AM PROJECT DESIGNER Clinical Communication Virtual Review in [place], [place] 200 [place] [address] 11/18/2024 3:00 PM PROJECT DESIGNER Ancillary Procedure Department of Ophthalmology in [place], [place] [address] [place] [phone] 11/18/2024 3:30 PM PROJECT DESIGNER Office Visit Department of Ophthalmology in [place], [place] [address] [place] [phone] Peña Carver M.D. [address] [place] [phone] documented as of this encounter Visit Diagnoses Diagnosis Dysphagia documented in this encounter Care Teams Drum Worker Relationship Specialty Start Date End Date Elsewhere, Pcp PCP - General Internal Medicine 02/26/24 documented as of this encounter
--- OUTSIDE RECORDS SUMMARY | 2024-09-07 17:31 | XMS_ITS | Encounter Summary ---
Author Organization [facility] Address [address] [place] [address] Care Team Providers Care Digital Sales Assistant Name Role Phone Elsewhere, Pcp Primary Care Provider Unavailabl e Reason for Referral * Outpatient (Routine) - Closed Specialty Diagnoses / Procedures Referred By Contac t Referred To Contact Otorhinolaryngology Rafal Rankin M.D. [address] [place] [phone] Phone: tel: fax: [facility] Referral ID Status Reason Start Date Expiration Date Visits Re quested Visits Authorized [id number] Closed 07/17/2024 01/16/2026 1 1 Scheduling Instructions Ok to add on at [address] Rankin 07/18/24 Encounter Details Date Type Department Care Team (Late st Contact Info) Description 07/17/2024 Orders Only Department of Otorhinolaryngology in [place], [place] [address] [place] [phone] Rafal Rankin M.D. [address] [place] [phone] Social History Tobacco Use Types Packs/Day Years [...] PM CDT Legal Sex Male 8:22 AM AXLE INSPECTOR Gender Identity Male 03/12/2024 1:38 PM CDT Sexual Orientation Straight 03/12/2024 1: 38 PM CDT documented as of this encounter Plan of Treatment Upcoming Encounters Date Type Department Care Team (Latest Contact Info) Description 10/01/2024 8:15 AM AXLE INSPECTOR Comprehensive Visit Department of Neurology in [address] [phone] Dillon Ozuna APRN, C.N.P., M.S. [address] [place] [phone] Pam Hillman M.S., [facility]-STEEL WOOL MACHINE OPERATOR [address] [place] [phone] 10/01/2024 9:00 AM AXLE INSPECTOR Appointment Department of Radiology, [facility], in [address] [phone] Dillon Ozuna APRN, C.N.P., M.S. [address] [place] [phone] Pam Hillman M.S., [facility]-STEEL WOOL MACHINE OPERATOR [address] [place] [phone] 10/01/2024 9:45 AM AXLE INSPECTOR Clinical Support Department of Neurology in [address] [phone] Dillon Ozuna APRN, C.N.P., M.S. [address] [place] [phone] Pam Hillman M.S., CCC-STEEL WOOL MACHINE OPERATOR [address] [place] [phone] 10/01/2024 11:00 AM AXLE INSPECTOR Office Visit Division of Endocrinology in [address] [phone] Dillon Ozuna APRN, C.N.P., M.S. [address] [place] [phone] 10/15/2024 3:15 PM AXLE INSPECTOR Office Visit Department of Otorhinolaryngology in [address] [phone] Rafal Rankin M.D. [address] [place] [phone] 10/22/2024 8:30 AM AXLE INSPECTOR Clinical Communication Virtual Review in [address] [phone] 10/25/2024 10:30 AM AXLE INSPECTOR Comprehensive Visit Department of Neurology in [address] [phone] Oziel Odonnell M.D. [address] [place] [phone] 11/15/2024 11:15 AM AXLE INSPECTOR Clinical Communication Virtual Review in [address] [phone] 11/18/2024 3:00 PM AXLE INSPECTOR Ancillary Procedure Department of Ophthalmology in [address] [phone] 11/18/2024 3:30 PM AXLE INSPECTOR Office Visit Department of Ophthalmology in [address] [phone] Peña Carver M.D. [address] [place] [phone] Scheduled Referrals Name Type Priority Associated Diagnoses Order Schedule Otorhinolaryngology office visit (clinic) Outpatient Referral Routine Expected: 07/18/2024, Expires: 10/16/2025 documented as of this encounter Visit Diagnoses Not on filedocumented in this encounter Care Teams Digital Sales Assistant Relationship Specialty Start Date End Date Elsewhere, Pcp PCP - General Internal Medicine 02/26/24 documented as of this encounter
--- OUTSIDE RECORDS SUMMARY | 2024-09-07 17:31 | XMS_ITS | Encounter Summary ---
Author Organization [facility] Address [address] [place] [address] Care Team Providers Care Therapeutic Massage Technician Name Role Phone Elsewhere, Pcp Primary Care Provider Unavailabl e Reason for Visit * Reason Onset Date Comments Patient Question 08/12/2024 Encounter Details Date Type Department Care Team (Latest Contact Info) Description 08/12/2024 Clinical Communication Division of General Internal Medicine in [place], [place] [address] [place] [address] Cristiane Palacio, GRUPO, C.N.P., D.N.P. [address] [place] [address] Patient Question Social History Tobacco Use Types Packs/Day Years [...] your living situation today? I have a [facility] place to live 03/12/2024 Sex and Gender Information Value Date Recorded Sex Assigned at Male 03/12/2024 1:38 PM CDT Legal Sex Male 8:22 AM BOILER OPERATOR Gender Identity Male 03/12/2024 1:38 PM CDT Sexual Orientation Straight 03/12/2024 1: 38 PM CDT documented as of this encounter Plan of Treatment Upcoming Encounters Date Type Department Care Team (Latest Contact Info) Description 10/01/2024 8:15 AM BOILER OPERATOR Comprehensive Visit Department of Neurology in [place], [place] [address] [place] [phone] Dillon Ozuna APRN, C.N.P., M.S. [address] [place] [phone] Pam Hillman M.S., [facility] [address] [place] [phone] 10/01/2024 9:00 AM BOILER OPERATOR Appointment Department of Radiology, [facility], in [place], [place] [address] [place] [phone] Dillon Ozuna APRN, C.NRon., M.S. [address] [place] [phone] Pam Hillman M.Estephania., [facility] [phone] 10/01/2024 9:45 AM BOILER OPERATOR Clinical Support Department of Neurology in [place], [place] [address] [place] [phone] Dillon Ozuna APRN, C.NRon., M.S. [address] [place] [phone] Pam Hillman M.S., [facility] [address] [place] [phone] 10/01/2024 11:00 AM BOILER OPERATOR Office Visit Division of Endocrinology in [place], [place] [address] [place] [phone] Dillon Ozuna APRN, C.N.Naveed, M.S. [address] [place] [phone] 10/15/2024 3:15 PM BOILER OPERATOR Office Visit Department of Otorhinolaryngology in [place], [place] [address] [place] [phone] Rafal Rankin M.D. [address] [place] [phone] 10/22/2024 8:30 AM BOILER OPERATOR Clinical Communication Virtual Review in [place], [place] 200 [place] [address] 10/25/2024 10:30 AM BOILER OPERATOR Comprehensive Visit Department of Neurology in [place], [place] [address] [place] [phone] Oziel Odonnell M.D. [address] [place] [phone] 11/15/2024 11:15 AM BOILER OPERATOR Clinical Communication Virtual Review in [address] [phone] 11/18/2024 3:00 PM BOILER OPERATOR Ancillary Procedure Department of Ophthalmology in [address] [phone] 11/18/2024 3:30 PM BOILER OPERATOR Office Visit Department of Ophthalmology in [address] [phone] Peña Carver M.D. [address] [place] [phone] documented as of this encounter Visit Diagnoses Not on filedocumented in this encounter Care Teams Therapeutic Massage Technician Relationship Specialty Start Date End Date Elsewhere, Pcp PCP - General Internal Medicine 02/26/24 documented as of this encounter
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
--- OUTSIDE RECORDS SUMMARY | 2024-09-07 17:31 | XMS_ITS | Encounter Summary ---
Author Organization [facility] Address [address] [place] [address] Care Team Providers Care Lens Maker Name Role Phone Elsewhere, Pcp Primary Care Provider Unavailabl e Reason for Visit * Outpatient (Routine) - Closed Specialty Diagnoses / Procedures Referred By Karine t Referred To Contact Otorhinolaryngology Rafal Rankin M.D. [address] [place] [address] Phone: tel: fax: [facility] Referral ID Status Reason Start Date Expiration Date Visits Re quested Visits Authorized [id number] Closed 06/17/2024 12/17/2025 1 1 Encounter Details Date Type Department Care Team (Latest Contact Info) Description 06/25/2024 9:00 AM CDT Telemedicine Department of Otorhinolaryngology in [place], [place] [address] [place] [phone] Rafal Rankin M.D. [address] [place] [phone] Sialorrhea (Primary Dx); Dysphagia; Traumatic Subarachnoid Hemorrhage Without Loss Of Consciousness Sequela (HCC); Pneumonitis Due To Inhalation Of Food And Vomit (HCC) Social History Tobacco Use Types Packs/Day Years Used Date Smoking Tobacco: Former Cigarettes Q uit: 1985 Smokeless Tobacco: Never Alcohol Use Standard Drinks/Week Comments Not Currently 0 (1 standard drink = 0.6 oz pur e alcohol) [facility] Utilities Answer Date Recorded In the [...] PM CDT Legal Sex Male 8:22 AM PERSONNEL SCHEDULER Gender Identity Male 03/12/2024 1:38 PM CDT Sexual Orientation Straight 03/12/2024 1: 38 PM CDT documented as of this encounter Progress Notes * Rafal Rankin M.D. - 06/25/2024 9:00 AM CDT [facility] VIRTUAL VISIT The patient was present for a consult via real-time video technology by Dr. Rankin on 06/25/[address] [facility] to the patient in the patient's home [...] (Latest Contact Info) Description 10/01/2024 8:15 AM PERSONNEL SCHEDULER Comprehensive Visit Department of Neurology in [place], [place] [address] [place] [phone] Dillno Ozuna APRN, C.N.P., M.S. [address] [place] [phone] Pam Hillman, M.S., [facility] [address] [place] [phone] 10/01/2024 9:00 AM PERSONNEL SCHEDULER Appointment Department of Radiology, [facility], in [place], [place] [address] [place] [phone] Dillon Ozuna APRN, C.N.P., M.S. [address] [place] [phone] Pam Hillman M.S., [facility] [address] [place] [phone] 10/01/2024 9:45 AM PERSONNEL SCHEDULER Clinical Support Department of Neurology in [place], [place] [address] [place] [phone] Dillon Ozuna APRN, C.N.P., M.S. [address] [place] [phone] Pam Hillman M.S., [facility] [address] [place] [phone] 10/01/2024 11:00 AM PERSONNEL SCHEDULER Office Visit Division of Endocrinology in [place], [place] [address] [place] [phone] Dillon Ozuna APRN, C.N.P., M.S. [address] [place] [phone] 10/15/2024 3:15 PM PERSONNEL SCHEDULER Office Visit Department of Otorhinolaryngology in [place], [place] [address] [place] [phone] Rafal Rankin M.D. [address] [place] [phone] 10/22/2024 8:30 AM PERSONNEL SCHEDULER Clinical Communication Virtual Review in [place], [place] 200 [place] [address] 10/25/2024 10:30 AM PERSONNEL SCHEDULER Comprehensive Visit Department of Neurology in [place], [place] [address] [place] [phone] Oziel Odonnell M.D. [address] [place] [phone] 11/15/2024 11:15 AM PERSONNEL SCHEDULER Clinical Communication Virtual Review in [address] [phone] 11/18/2024 3:00 PM PERSONNEL SCHEDULER Ancillary Procedure Department of Ophthalmology in [place], [place] [address] [place] [address] 11/18/2024 3:30 PM PERSONNEL SCHEDULER Office Visit Department of Ophthalmology in [place], [place] [address] [place] [address] Peña Carver M.D. [address] [place] [address] documented as of this encounter Visit Diagnoses Diagnosis Sialorrhea- Primary Dysphagia Traumatic Subarachnoid Hemorrhage Without Loss Of Consciousness Sequela (HCC) Pneumonitis Due To Inhalation Of Food And Vomit (HCC) documented in this encounter Care Teams Lens Maker Relationship Specialty Start Date End Date Elsewhere, Pcp PCP - General Internal Medicine 02/26/24 documented as of this encounter
--- OUTSIDE RECORDS SUMMARY | 2024-09-07 17:32 | XMS_ITS | Encounter Summary ---
Author Organization [facility] Address [address] [place] [address] Care Team Providers Care Laboratory Apparatus Glass Blower Name Role Phone Elsewhere, Pcp Primary Care Provider Unavailabl e Reason for Referral * Speech Pathology (Routine) - Authorized Specialty Diagnoses / Procedures Referred By Contac t Referred To Contact Diagnoses Dysphagia Procedures AUGER PRESS OPERATOR Dysphagia evaluate and treat Cristiane Palacio APRN, C.N.P., D.N.P. [address] [place] [phone] Phone: tel: fax: [facility] Referral ID Status Reason Start Date Expiration Date V isits Requested Visits Authorized [id number] Authorized 06/18/2024 06/18/2025 99 99 Encounter Details Date Type Department Care Team (Late st Contact Info) Description 06/18/2024 Orders Only Division of Endocrinology in [place], [place] [address] [place] [phone] Cristiane Palacio APRN, C.N.P., D.N.P. [address] [place] [phone] Dysphagia (Primary Dx) Social History Tobacco Use Types Packs/Day Years Used Date Smoking Tobacco: Former Cigarettes Q uit: 1985 Smokeless Tobacco: Never Alcohol Use Standard Drinks/Week Comments Not Currently 0 (1 standard drink = 0.6 oz pur e alcohol) [facility] Utilities Answer Date Recorded In the past 12 months has e [employer], gas, oil, or water [employer] threatened to shut off services in your [...] PM CDT Legal Sex Male 8:22 AM DIRECTOR CAREER Gender Identity Male 03/12/2024 1:38 PM CDT Sexual Orientation Straight 03/12/2024 1: 38 PM CDT documented as of this encounter Plan of Treatment Upcoming Encounters Date Type Department Care Team (Latest Contact Info) Description 10/01/2024 8:15 AM DIRECTOR CAREER Comprehensive Visit Department of Neurology in [address] [phone] Dillon Ozuna APRN, C.N.P., M.S. [address] [place] [phone] Pam Hillman M.Estephania., CCC-AUGER PRESS OPERATOR [address] [place] [phone] 10/01/2024 9:00 AM DIRECTOR CAREER Appointment Department of Radiology, [facility], in [address] [phone] Dillon Ozuna APRN, Alfonso.N.P., M.S. [address] [place] [phone] Pam Hillman M.S., CCC-AUGER PRESS OPERATOR [address] [place] [phone] 10/01/2024 9:45 AM DIRECTOR CAREER Clinical Support Department of Neurology in [address] [phone] Dillon Ozuna APRN C.N.P., M.S. [address] [place] [phone] Pam Hillman M.S., CCC-AUGER PRESS OPERATOR [address] [place] [phone] 10/01/2024 11:00 AM DIRECTOR CAREER Office Visit Division of Endocrinology in [place], [place] [address] [place] [phone] Dillon Ozuna APRN, C.N.P., M.S. [address] [place] [phone] 10/15/2024 3:15 PM DIRECTOR CAREER Office Visit Department of Otorhinolaryngology in [place], [place] [address] [place] [phone] Rafal Rankin M.D. [address] [place] [phone] 10/22/2024 8:30 AM DIRECTOR CAREER Clinical Communication Virtual Review in [address] [phone] 10/25/2024 10:30 AM DIRECTOR CAREER Comprehensive Visit Department of Neurology in [address] [phone] Oziel Odonnell M.D. [address] [place] [phone] 11/15/2024 11:15 AM DIRECTOR CAREER Clinical Communication Virtual Review in [place], [place] 200 [place] [address] 11/18/2024 3:00 PM DIRECTOR CAREER Ancillary Procedure Department of Ophthalmology in [address] [phone] 11/18/2024 3:30 PM DIRECTOR CAREER Office Visit Department of Ophthalmology in [place], [place] [address] [place] [phone] Peña Carver M.D. [address] [place] [phone] documented as of this encounter Visit Diagnoses Diagnosis Dysphagia- Primary documented in this encounter Care Teams Laboratory Apparatus Glass Blower Relationship Specialty Start Date End Date Elsewhere, Pcp PCP - General Internal Medicine 02/26/24 documented as of this encounter
--- OUTSIDE RECORDS SUMMARY | 2024-09-07 17:32 | XMS_ITS | Clinical Summary ---
Author Organization [facility] Address [place], [place] [address] Care Team Providers Care Instrument Maker Name Role Phone Sandy Matta DO Primary Care Provider Allergies Active Allergy Reactions Criticality Noted Date Comments Adhesive Tape-Silicones Contact Dermatitis High 05/15/2024 New reaction as of 05/15/2024. Medium reaction. Sulfamethoxazole-Trime thoprim Hives,Rash,Itching High 12/02/2023 whole body hives severe. pics reviewed. Tolmetin Hives 07/12/2007 Medications Medication Sig Dispensed Refills Start Date End Date Status Blood Pressure MonitorIndications:H TN (hypertension), benign 1 Device 0 01/06/2016 Active finasteride (PROSCAR) 5 mg tablet TAKE ONE TABLET BY MOUTH ONE TIME DAILY* 05/13/2023 Active durable medical equipment (DME)Indications:Saeed pharyngeal dysphagia 60cc syringe, threaded 100 Each 10/24/2023 Active durable medical equipment (DME)Indications:Saeed pharyngeal dysphagia Feed bags 100 Each 10/24/2023 Active acetaminophen (TYLENOL) 325 mg tablet 650 mg. 10/10/2023 Active food supplemt, lactose-reducedIndic ations:Pharyngoesoph ageal dysphagia,Tracheosto my status (HC),Oropharyngeal dysphagia complete peptide 1.5 calories at 85ml/hour (7 cartons total daily) via g tube. Free water flushes 150ml every 4 hours (total 900ml total per day) via g tube. Please give 30 days at a time. 2000 mL 11 12/13/2023 Active disposable glovesIndications:S/ P percutaneous endoscopic gastrostomy (PEG) tube placement (HC) For home use. 200 Each 2 12/25/2023 Active NexIUM Packet 40 mg grps 12/24/2023 Active NaCl 0.9% 0.9 % sodium chloride neb solutionIndications: Acute aspiration pneumonia (HC) Inhale 1 Neb via a nebulizer every 4 hours if needed for Wheezing. 45 mL 2 12/26/2023 Active prochlorperazine (COMPAZINE) 25 mg suppositoryIndicatio ns:Nausea and vomiting, unspecified vomiting type Insert 1 Suppository (25 mg) rectally every 12 hours if needed for Nausea/Vomiting. 01/29/2024 Active fluticasone (50 mcg per actuation) nasal solution (FLONASE)Indications :Nasal obstruction Inhale 1 Jermyn into affected nostril(s) two times daily. 16 g 3 01/31/2024 Active traZODone (DESYREL) 50 mg tablet Administer 50 mg through feeding tube. 10/10/2023 Active durable medical equipment (DME)Indications:Gas trojejunostomy tube status (HC) 12ml enteral syringe NeoMed with ENFIT CONNECTOR 6 Each 03/19/2024 Active durable medical equipment (DME)Indications:On tube feeding diet Anival [place] feed bag Ref# [id number] 30 Each 11 03/27/2024 Active escitalopram oxalate (LEXAPRO) 20 mg tabletIndications:Re active depression Take 1 Tablet (20 mg) by mouth once daily in the morning. 90 Tablet 3 06/04/2024 Active mag/aluminum/sod bicarb/alginc (GAVISCON ORAL) Take by mouth. Activ e famotidine (PEPCID) 40 mg/5 mL suspension Administer 20 mg via G-tube. 07/31/2024 Active tadalafiL (CIALIS) 10 mg tabletIndications:Er ectile dysfunction of organic origin Take 1 Tablet (10 mg) by mouth once daily if needed (Erectile dysfunction). Take 30 minutes before sexual activity. 10 Tablet 11 08/05/2024 Active promethazine-codeine (PHENERGAN WITH CODEINE) 6.25-10 mg/5 mL syrupIndications:Dry heaves,Post-viral cough syndrome Take 5 mL by mouth every 4 hours if needed for Cough. 473 mL 08/09/2024 Active Active Problems Problem Noted Date Diagnosed [...] Encounters Date Type Department Care Team Description 08/19/2024 1:50 PM CDT Office Visit [facility] [address] [place] [address] Sandy Matta DO Follow Up (pneumonia and covid); Fatigue 08/18/2024 Travel 08/09/2024 Orders Only [facility] Scanner 1 scan: (1-Ord) [facility], CHEST 1V, 08/09/2024 08/05/2024 2:15 PM CDT Office Visit [facility] [address] [place] [address] Sandy Matta DO Medicare ANNUAL (subsequent) Visit (68 yr); Immunization/Injecti on 08/05/2024 Travel 07/25/2024 Orders Only [facility] Scanner 1 scan: (1-Ord) [facility], CHEST 2V, 07/25/2024 07/25/2024 Orders Only [facility] Scanner 1 scan: (1-Ord) LYNN, SONIA ABDOMEN 1V, 07/25/2024 07/24/2024 11:30 AM CDT Ancillary Procedure [facility] [address] [facility] [place] [address] 07/24/2024 10:40 AM CDT Office Visit [facility] [address] [facility] [address] Sandy Matta DO Vomiting; Medication Management (augmentin) 07/24/2024 Travel 07/24/2024 Telephone [facility] [address] [place], [place] [address] Sandy Matta DO FYI (Complications) 07/14/2024 Travel 07/05/2024 1:50 PM CDT Office Visit [facility] [address] [facility] [place] [address] Sandy Matta DO Medication Management (lexapro is helping) 07/05/2024 Travel 07/02/2024 Travel from Last 3 Months Immunizations Name Administration Dates Next Due AMB Influenza, IIV3 (Age >=3 years)(Flu Clinic Only) 08/07/2013,10/21/2009,09/05/2008 AMB Influenza, IIV4 PF (=>6 mos Flulaval,Fluzone Fluarix)(Flu Clinic Only) 08/04/2020,08/15/2019,07/31/2014 COVID-19 vaccine (Moderna 100mcg/0.5mL) PF, MDV 01/24/2021,12/29/2020 COVID-19 vaccine (Pfizer-Bio NTech 30mcg/0.3mL) PF, MDV 10/11/2021 Influenza A (H1N1), Inactiva manju (Age >=3 Years) 2009 Influenza Virus, Unspecified 07/22/2022, 09/02/2021,08/04/2020,10/01/2019,08/24/2018,09/08/2017,08/22/20 16,09/11/2015,07/31/2014,08/19/2013,0 08/07/2013,08/27/2010,10/21/2009,09/05,09/06/2007,09/13/2006, 5,09/09/2003 Influenza, High-dose Quadriv alent [...] Former Cigarettes 0.5 5 1 973 - 1978 Smokeless Tobacco: Never Tobacco Cessation:Counseling Given: Yes [...] file 01/26/2024 Food Insecurity Answer Date Recorded Do you worry your food will run out before you are able to buy more? 1 01/26/2024 Transportation Needs Answer Date Record ed Lack of Transportation (Medical) 1 01/26/2024 Housing Stability Answer Date Recorded What is your housing situation today? 1 01/26/2024 Sex and Gender Information Value Date Recorded Sex Assigned at Male 10/03/2020 9:54 PM GUNSMITH APPRENTICE Gender Identity Not on file Sexual Orientation Not on file Obstetrics History Last Filed Vital Signs Vital Sign Reading Time Taken Comments Blood Pressure 121/84 08/19/2024 1:54 PM CDT Pulse 82 08/19/2024 1:54 PM CDT Temperature 36.5 ??C (97.7 ??F) 08/19/2024 1:54 PM CD T Respiratory Rate 18 03/17/2021 10:1 9 AM CDT Oxygen Saturation 97% 08/19/2024 1:54 PM CDT Inhaled Oxygen Concentration - - Weight 72.5 kg (159 lb 12.8 oz) 08/19/2024 1:54 PM CDT Height 180.7 cm (5' 11.13) 08/05/2024 2:31 PM C DT Body Mass Index 22.21 08/05/2024 2:31 PM CDT Plan of Treatment Health Maintenance [...] Additional history exists Tetanus booster 08/14/2033 08/14/2023, 09/07/2022, 05/04/2012, Additional history exists Hepatitis C screening for ag e 18-79 Completed 12/07/2015 Zoster (shingles) series for age 50+ Completed 08/24/2018, 08/24/2018, 06/15/2018, Additional history exists Pneumococcal series for age 65+ Completed 06/07/2023, 06/07/2023, 01/12/2022 Tdap Completed 08/14/2023, 05/04/2012 Influenza for age 65+ Completed 08/05/2024 , 10/11/2023, 07/22/2022, Additional history exists Procedures Procedure Name Priority Date/Time Associated Diagnosis Comments SCAN-RADIOLOGY REPORT 08/09/2024 12:00 AM CDT SCAN-RADIOLOGY REPORT 07/25/2024 12:00 AM CDT SCAN-DIAGNOSTIC REPORT 07/25/2024 12:00 AM CDT XR CHEST 2 VIEWS PA AND LATERAL Routine 07/24/2024 11:31 AM CDT Recurrent aspiration pneumonia (HC) Nausea and vomiting, unspecified vomiting type LIPID PANEL W REFLEX MEASURED LDL Routine 06/07/2023 2:09 PM CDT Lipid screening COLONOSCOPY SCREENING Routine 06/14/2021 12:00 AM CDT Personal history of colonic polyps ANTI HCV Routine 12/07/2015 8:46 AM GUNSMITH APPRENTICE Need for hepatitis C screening test from Last 3 Months or Most Recently Relevant to Health Maintenance Results * SCAN-RADIOLOGY REPORT (08/09/2024 12:00 AM CDT) Only the most recent of2 resultswithin the time period is included. Anatomical Region Laterality Modality Other Scanner OTHER * SCAN-DIAGNOSTIC REPORT (07/25/2024 12:00 AM CDT) Scanner OTHER * XR CHEST 2 VIEWS PA AND LATERAL (07/24/2024 11:31 AM CDT) Anatomical Region Laterality Modality CHEST, THORAX, Lung, [...] @ 07/24/2024 2:24:56 PM (Electronically Signed) Sandy Abbott Detert DO GENERAL IMAGING * (ABNORMAL) LIPID PANEL W REFLEX MEASURED LDL (06/07/2023 2:09 PM CDT) CHOLESTEROL,TOTAL 228(H) 100 - 199 mg/dL 06/08/2023 12:[address] [facility] Comment: Cholesterol, Total Reference Ranges Desirable <200 mg/dL Borderline 200-239 mg/dL High >=240 mg/dL TRIGLYCERIDES 132 <150 mg/dL 06/08/2023 12:[address] [facility] HDL CHOLESTEROL 72 >40 mg/dL 12:14 AM CDT [facility] NON-HDL CHOLESTEROL 156(H) <145 mg/dl 06/08/2023 12:14 AM CDT [facility] CHOL/HDL RATIO 3.17 <4.50 06/08/2023 12:14 AM CDT [facility] LDL CHOLESTEROL 130 <=130 mg/dL 06/08/2023 12:[address] [facility] VLDL CHOLESTEROL 26 <=30 mg/dL 06/08/2023 12:14 AM CDT [facility] PROVIDER ORDERED STATUS RANDOM 06/08/2023 12:14 AM CDT [facility] Blood BLOOD SPECIMEN / Unknown Venipuncture / Unknown 06/07/2023 2:09 PM CDT 06/07/2023 2:09 PM CDT Sandy Abbott Detert DO [facility]Y [facility] [address] [place] [address], * COLONOSCOPY SCREENING (06/14/2021 12:00 AM CDT) Sandy Abbott Detert DO GI PROCEDURE ORD * ANTI HCV [10054.2] (12/07/2015 8:46 AM GUNSMITH APPRENTICE) HEPATITIS C ANTIBODY Non-Reacti ve Non-Reacti ve 12/07/2015 1:24 PM GUNSMITH APPRENTICE [facility] Blood specimen (specimen) BLOOD SPECIMEN / Unknown Venipuncture / Unknown 12/07/2015 8:46 AM GUNSMITH APPRENTICE 12/07/2015 8:46 AM GUNSMITH APPRENTICE Narrative [facility] - 12/07/2015 1:24 PM GUNSMITH APPRENTICE Antibodies to HCV not detected; does not exclude the possibility of exposure to HCV. Sandy Matta DO SEND OUTS [facility] [address] [place] [address], from Last 3 Months or Most Recently Relevant to Health Maintenance Advance Directives * Full Code (Latest Code Status on File) Date Activated Date Inactivated Comments 09/18/2013 12:03 AM 09/19/2013 1:12 PM Care Teams Instrument Maker Relationship Specialty Start Date End Date [place] [address] [address] PCP - General Family Practice 11/12/15
--- OUTSIDE RECORDS SUMMARY | 2024-09-07 17:32 | XMS_ITS | Encounter Summary ---
Author Organization [facility] Address [address] [place] [address] Care Team Providers Care Franchise Business Consultant Name Role Phone Elsewhere, Pcp Primary Care Provider Unavailabl e Encounter Details Date Type Department Care Team (Latest Contact Info) Description 06/18/2024 Clinical Communication Department of Otorhinolaryngology in [place], [place] [address] [place] [address] Rafal Rankin M.D. [address] [place] [address] Social History Tobacco Use Types Packs/Day Years Used Date Smoking Tobacco: Former Cigarettes Q uit: 1985 Smokeless Tobacco: Never Alcohol Use Standard Drinks/Week Comments Not Currently 0 (1 standard drink = 0.6 oz pur e alcohol) [facility] Utilities Answer Date Recorded In the [...] your living situation today? [facility] 03/12/2024 Sex and Gender Information Value Date Recorded Sex Assigned at Male 03/12/2024 1:38 PM CDT Legal Sex Male 8:22 AM TOWN MANAGER Gender Identity Male 03/12/2024 1:38 PM CDT Sexual Orientation Straight 03/12/2024 1: 38 PM CDT documented as of this encounter Plan of Treatment Upcoming Encounters Date Type Department Care Team (Latest Contact Info) Description 10/01/2024 8:15 AM TOWN MANAGER Comprehensive Visit Department of Neurology in [place], [place] [address] [place] [address] Dillon Ozuna APRN, C.N.P., M.S. [address] [place] [phone] Pam Hillman M.S., [facility] [address] [place] [phone] 10/01/2024 9:00 AM TOWN MANAGER Appointment Department of Radiology, [facility], in [place], [place] [address] [place] [address] Dillon Ozuna APRN, C.N.Romero., M.S. [address] [place] [phone] Pam Hillman M.S., [facility] [address] [place] [phone] 10/01/2024 9:45 AM TOWN MANAGER Clinical Support Department of Neurology in [place], [place] [address] [place] [phone] Dillon Ozuna APRN, C.N.P., M.S. [address] [place] [phone] Pam Hillman M.S., [facility] [address] [place] [phone] 10/01/2024 11:00 AM TOWN MANAGER Office Visit Division of Endocrinology in [address] [phone] Dillon Ozuna APRN, C.N.P., M.S. [address] [place] [phone] 10/15/2024 3:15 PM TOWN MANAGER Office Visit Department of Otorhinolaryngology in [address] [place] [address] Rafal Rankin M.D. [address] [place] [phone] 10/22/2024 8:30 AM TOWN MANAGER Clinical Communication Virtual Review in [place], [place] 200 [place] [address] 10/25/2024 10:30 AM TOWN MANAGER Comprehensive Visit Department of Neurology in [place], [place] [address] [place] [phone] Oziel Odonnell M.D. [address] [place] [phone] 11/15/2024 11:15 AM TOWN MANAGER Clinical Communication Virtual Review in [address] [phone] 11/18/2024 3:00 PM TOWN MANAGER Ancillary Procedure Department of Ophthalmology in [place], [place] [address] [place] [phone] 11/18/2024 3:30 PM TOWN MANAGER Office Visit Department of Ophthalmology in [address] [phone] Peña Carver M.D. [address] [place] [phone] documented as of this encounter Visit Diagnoses Not on filedocumented in this encounter Care Teams Franchise Business Consultant Relationship Specialty Start Date End Date Elsewhere, Pcp PCP - General Internal Medicine 02/26/24 documented as of this encounter
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
--- OUTSIDE RECORDS SUMMARY | 2024-09-07 17:32 | XMS_ITS | Encounter Summary ---
Author Organization [facility] Address [address] [place] [address] Care Team Providers Care Manager Culture Name Role Phone Elsewhere, Pcp Primary Care Provider Unavailabl e Reason for Referral * Outpatient (Routine) - Closed Specialty Diagnoses / Procedures Referred By Contac t Referred To Contact Otorhinolaryngology Rafal Rankin M.D. [address] [place] [address] Phone: tel: fax: [facility] Referral ID Status Reason Start Date Expiration Date Visits Re quested Visits Authorized [id number] Closed 06/17/2024 12/17/2025 1 1 Encounter Details Date Type Department Care Team (Late st Contact Info) Description 06/17/2024 Orders Only Department of Otorhinolaryngology in [place], [place] [address] [place] [phone] Rafal Rankin M.D. [address] [place] [phone] Social History Tobacco Use Types Packs/Day Years Used Date Smoking Tobacco: Former Cigarettes Q uit: 1985 Smokeless Tobacco: Never Alcohol Use Standard Drinks/Week Comments Not Currently 0 (1 standard drink = 0.6 oz pur e alcohol) [facility] Utilities Answer Date Recorded In the [...] PM CDT Legal Sex Male 8:22 AM GRAINING MACHINE OPERATOR Gender Identity Male 03/12/2024 1:38 PM CDT Sexual Orientation Straight 03/12/2024 1: 38 PM CDT documented as of this encounter Plan of Treatment Upcoming Encounters Date Type Department Care Team (Latest Contact Info) Description 10/01/2024 8:15 AM GRAINING MACHINE OPERATOR Comprehensive Visit Department of Neurology in [address] [phone] Dillon Ozuna APRN, C.N.P., M.S. [address] [place] [phone] Pam Hillman M.S., [facility]-SUPERVISOR WOUND [address] [place] [phone] 10/01/2024 9:00 AM GRAINING MACHINE OPERATOR Appointment Department of Radiology, [facility], in [address] [phone] Dillon Ozuna APRN, Alfonso.N.P., M.S. [address] [place] [phone] Pam Hillman M.S., [facility]-SUPER[facility] WOUND [address] [place] [phone] 10/01/2024 9:45 AM GRAINING MACHINE OPERATOR Clinical Support Department of Neurology in [address] [phone] Dillon Ozuna APRN C.N.P., M.S. [address] [place] [phone] Pam Hillman M.Estephania., [facility]-SUPERVISOR WOUND [address] [place] [phone] 10/01/2024 11:00 AM GRAINING MACHINE OPERATOR Office Visit Division of Endocrinology in [place], [place] [address] [place] [phone] Dillon Ozuna APRN, C.N.P., M.S. [address] [place] [phone] 10/15/2024 3:15 PM GRAINING MACHINE OPERATOR Office Visit Department of Otorhinolaryngology in [place], [place] [address] [place] [phone] Rafal Rankin M.D. [address] [place] [phone] 10/22/2024 8:30 AM GRAINING MACHINE OPERATOR Clinical Communication Virtual Review in [address] [phone] 10/25/2024 10:30 AM GRAINING MACHINE OPERATOR Comprehensive Visit Department of Neurology in [place], [place] [address] [place] [phone] Oziel Odonnell M.D. [address] [place] [phone] 11/15/2024 11:15 AM GRAINING MACHINE OPERATOR Clinical Communication Virtual Review in [address] [phone] 11/18/2024 3:00 PM GRAINING MACHINE OPERATOR Ancillary Procedure Department of Ophthalmology in [place], [place] [address] [place] [phone] 11/18/2024 3:30 PM GRAINING MACHINE OPERATOR Office Visit Department of Ophthalmology in [address] [phone] Peña Carver M.D. [address] [place] [phone] Scheduled Referrals Name Type Priority Associated Diagnoses Order Schedule Otorhinolaryngology office visit (clinic) Outpatient Referral Routine Expected: 06/17/2024, Expires: 09/17/2025 documented as of this encounter Visit Diagnoses Not on filedocumented in this encounter Care Teams Manager Culture Relationship Specialty Start Date End Date Elsewhere, Pcp PCP - General Internal Medicine 02/26/24 documented as of this encounter
--- OUTSIDE RECORDS SUMMARY | 2024-09-07 17:32 | XMS_ITS | Encounter Summary ---
Author Organization [facility] Address [address] [place] [address] Care Team Providers Care Military Cook Name Role Phone Elsewhere, Pcp Primary Care Provider Unavailabl e Reason for Visit * Reason Comments Feeding Tube Encounter Details Date Type Department Care Team (Latest Contact Info) Description 06/18/2024 10:00 AM CDT Clinical Support Division of Endocrinology in [place], [place] [address] [place] [address] Stan Hernandez M.D. Ankit Mednia, R.N. Dysphagia; Stenosis Laryngeal; Pneumonitis Due To Inhalation Of Food And Vomit (HCC) Social History Tobacco Use Types Packs/Day Years Used Date Smoking Tobacco: Former Cigarettes Q uit: 1985 Smokeless Tobacco: Never Alcohol Use Standard Drinks/Week Comments Not Currently 0 (1 standard drink = 0.6 oz pur e alcohol) [facility] Utilities Answer Date Recorded In the past 12 months has e [employer], gas, oil, or water [employer] threatened to shut off services in [...] your living situation today? I have a [employer] place to live 03/12/2024 Sex and Gender Information Value Date Recorded Sex Assigned at Male 03/12/2024 1:38 PM CDT Legal Sex Male 8:22 AM APPLICATIONS ENGINEER Gender Identity Male 03/12/2024 1:38 PM CDT [...] GJ tube Tube size: 18 Tube brand: [employer]TravelZeeky Tube reference number: [id number] Connector type: Small Bore (Enfit) Date last replaced: 05/15/2024 Patient reported replaced locally at [facility] Skin disk level: 3.5 cm moved to 4 cm Internal anchor device: Balloon, not checked Site condition: Tube site is concave in nature, just above an abdominal fold. Scant mucous drainagewith very small ridge of granulation tissue 6726-5237.The granulation tissue from 1210-3619 was scabbed over. circumferential erythema under skin [...] handout discussed and demonstrated. Granulation tissue from 9642-1052 treated with 1 stick of silver nitrate [...] with the TGJ tube, because they enjoy [employer] boarding. We discussed that his tube site [...] future tube care and replacements done at [facility]. *Per HEN provider Cristiane Palacio CNP nurse [...] (Latest Contact Info) Description 10/01/2024 8:15 AM APPLICATIONS ENGINEER Comprehensive Visit Department of Neurology in [address] [phone] Dillon Ozuna APRN, C.N.P., M.S. [address] [place] [phone] Pam Hillman M.S., CCC-ANIMAL PHYSIOLOGY TEACHER [address] [place] [phone] 10/01/2024 9:00 AM APPLICATIONS ENGINEER Appointment Department of Radiology, [facility], in [address] [phone] Dillon Ozuna APRN, C.N.P., M.S. [address] [place] [phone] Pam Hillman M.S., CCC-ANIMAL PHYSIOLOGY TEACHER [address] [place] [phone] 10/01/2024 9:45 AM APPLICATIONS ENGINEER Clinical Support Department of Neurology in [address] [phone] Dillon Ozuna APRN, C.N.Romero., M.S. [address] [place] [phone] Pam Hillman M.S., [facility]-ANIMAL PHYSIOLOGY TEACHER [address] [place] [phone] 10/01/2024 11:00 AM APPLICATIONS ENGINEER Office Visit Division of Endocrinology in [place], [place] [address] [place] [phone] Dillon Ozuna APRN, C.N.P., M.S. [address] [place] [phone] 10/15/2024 3:15 PM APPLICATIONS ENGINEER Office Visit Department of Otorhinolaryngology in [place], [place] [address] [place] [phone] Rafal Rankin M.D. [address] [place] [phone] 10/22/2024 8:30 AM APPLICATIONS ENGINEER Clinical Communication Virtual Review in [address] [phone] 10/25/2024 10:30 AM APPLICATIONS ENGINEER Comprehensive Visit Department of Neurology in [place], [place] [address] [place] [phone] Oziel Odonnell M.D. [address] [place] [phone] 11/15/2024 11:15 AM APPLICATIONS ENGINEER Clinical Communication Virtual Review in [address] [phone] 11/18/2024 3:00 PM APPLICATIONS ENGINEER Ancillary Procedure Department of Ophthalmology in [place], [place] [address] [place] [phone] 11/18/2024 3:30 PM APPLICATIONS ENGINEER Office Visit Department of Ophthalmology in [place], [place] [address] [place] [phone] Peña Carver M.D. [address] [place] [address] documented as of this encounter Visit Diagnoses Diagnosis Dysphagia Stenosis Laryngeal Pneumonitis Due To Inhalation Of Food And Vomit (HCC) documented in this encounter Care Teams Military Cook Relationship Specialty Start Date End Date Elsewhere, Pcp PCP - General Internal Medicine 02/26/24 documented as of this encounter
--- OUTSIDE RECORDS SUMMARY | 2024-09-07 17:32 | XMS_ITS | Encounter Summary ---
Author Organization [facility] Address [address] [place] [address] Care Team Providers Care Casting Supervisor Name Role Phone Elsewhere, Pcp Primary Care Provider Unavailabl e Reason for Referral * Outpatient (Routine) - Closed Specialty Diagnoses / Procedures Referred By Contac t Referred To Contact Diagnoses Sialorrhea Procedures US Guidance Intraoperative Rafal Rankin M.D. 200 [place] [address] Phone: tel: fax: [facility] Referral ID Status Reason Start Date Expiration Date Visits Re quested Visits Authorized [id number] Closed 06/19/2024 06/19/2025 1 1 Encounter Details Date Type Department Care Team (Latest Contact Info) Description 06/18/2024 Orders Only Department of Otorhinolaryngology in [place], [place] [address] [place] [phone] Luz Muir R.N. [address] [place] [phone] Sialorrhea (Primary Dx) Social History Tobacco Use [...] PM CDT Legal Sex Male 8:22 AM SENIOR NUCLEAR MEDICINE TECHNOLOGIST Gender Identity Male 03/12/2024 1:38 PM CDT Sexual Orientation Straight 03/12/2024 1: 38 PM CDT documented as of this encounter Plan of Treatment Upcoming Encounters Date Type Department Care Team (Latest Contact Info) Description 10/01/2024 8:15 AM SENIOR NUCLEAR MEDICINE TECHNOLOGIST Comprehensive Visit Department of Neurology in [address] [phone] Dillon Ozuna APRN, Alfonso.N.P., M.S. [address] [place] [phone] Pam Hillman M.S., [facility]-[address] [phone] 10/01/2024 9:00 AM SENIOR NUCLEAR MEDICINE TECHNOLOGIST Appointment Department of Radiology, [facility], in [address] [phone] Dillon Ozuna APRN, C.N.P., M.S. [address] [place] [phone] Pam Hillman M.S., [facility]-[address] [phone] 10/01/2024 9:45 AM SENIOR NUCLEAR MEDICINE TECHNOLOGIST Clinical Support Department of Neurology in [address] [phone] Dillon Ozuna APRN, C.N.P., M.S. [address] [place] [phone] Pam Hillman M.S., [facility]-[address] [phone] 10/01/2024 11:00 AM SENIOR NUCLEAR MEDICINE TECHNOLOGIST Office Visit Division of Endocrinology in [place], [place] [address] [place] [phone] Dillon Ozuna APRN, C.N.P., M.S. [address] [place] [phone] 10/15/2024 3:15 PM SENIOR NUCLEAR MEDICINE TECHNOLOGIST Office Visit Department of Otorhinolaryngology in [place], [place] [address] [place] [phone] Rafal Rankin M.D. [address] [place] [phone] 10/22/2024 8:30 AM SENIOR NUCLEAR MEDICINE TECHNOLOGIST Clinical Communication Virtual Review in [address] [phone] 10/25/2024 10:30 AM SENIOR NUCLEAR MEDICINE TECHNOLOGIST Comprehensive Visit Department of Neurology in [place], [place] [address] [place] [phone] Oziel Odonnell M.D. [address] [place] [phone] 11/15/2024 11:15 AM SENIOR NUCLEAR MEDICINE TECHNOLOGIST Clinical Communication Virtual Review in [address] [phone] 11/18/2024 3:00 PM SENIOR NUCLEAR MEDICINE TECHNOLOGIST Ancillary Procedure Department of Ophthalmology in [address] [phone] 11/18/2024 3:30 PM SENIOR NUCLEAR MEDICINE TECHNOLOGIST Office Visit Department of Ophthalmology in [address] [phone] Peña Carver M.D. [address] [place] [phone] documented as of this encounter Results * [...] Sialorrhea documented in this encounter Care Teams Casting Supervisor Relationship Specialty Start Date End Date Elsewhere, Pcp PCP - General Internal Medicine 02/26/24 documented as of this encounter
--- OUTSIDE RECORDS SUMMARY | 2024-09-07 17:32 | XMS_ITS | Encounter Summary ---
Author Organization [facility] Address [address] [place] [address] Care Team Providers Care Active Directory Systems Administrator Name Role Phone Elsewhere, Pcp Primary Care Provider Unavailabl e Reason for Visit * Outpatient (Routine) - Closed Specialty Diagnoses / Procedures Referred By Contwaldemar t Referred To Contact Nutrition Diagnoses Dysphagia Stenosis Laryngeal Pneumonitis Due To Inhalation Of Food And Vomit (HCC) Stan Hernandez M.D. [facility] Referral ID Status Reason Start Date Expiration Date Visits Re quested Visits Authorized [id number] Closed 05/09/2024 11/08/2025 1 1 Encounter Details Date Type Department Care Team (Latest Contact Info) Description 06/18/2024 9:00 AM CDT Clinical Support Department of Nutrition and Diabetes Education in [place], [place] [address] [place] [phone] Stan Hernandez M.D. Johnson, Danelle A, M.S., RDN, LD [address] [place] [phone] Dietary Counseling And Surveillance For Enteral Nutrition [...] your living situation today? I have a [facility] place to live 03/12/2024 Sex and Gender Information Value Date Recorded Sex Assigned at Male 03/12/2024 1:38 PM CDT Legal Sex Male 8:22 AM PUBLIC RELATIONS ASSISTANT Gender Identity Male 03/12/2024 1:38 PM CDT [...] Relevant Social and Family History Resides in [place]. Medical Tests and Procedures/Biochemical Data VFSS (03/22/24): [...] Normal Muscle Mass: Normal Tube Information 18 [place]an TGJ tube last replaced at [facility] 05/15/24 Food/Nutrient Related History Oral Intake: NPO [...] BMI: 22.2 Estimation of Nutritional Needs Calories: 0019-2839 kcals/day (30-35 kcal/kg) Protein: 88-110 grams/day (1.2-1.5 [...] that will provide needed supplies for home: [employer] in [place] - they are unhappy with what they [...] Patient is followed in [facility] at [facility]: He will contact us as needed. Time spent with patient (minutes): 60 documented in this encounter Plan of Treatment Upcoming Encounters Date Type Department Care Team (Latest Contact Info) Description 10/01/2024 8:15 AM PUBLIC RELATIONS ASSISTANT Comprehensive Visit Department of Neurology in [place], [place] [address] [place] [phone] Dillon Ozuna APRN, C.N.P., M.S. [address] [place] [phone] Pam Hillman M.S., CCC-VP [address] [place] [phone] 10/01/2024 9:00 AM PUBLIC RELATIONS ASSISTANT Appointment Department of Radiology, [facility], in [place], [place] [address] [place] [address] Dillon Ozuna APRN, C.N.P., M.S. [address] [place] [phone] Pam Hillman M.S., [facility] [address] [place] [phone] 10/01/2024 9:45 AM PUBLIC RELATIONS ASSISTANT Clinical Support Department of Neurology in [place], [place] [address] [place] [phone] Dillon Ozuna APRN, C.N.P., M.S. [address] [place] [phone] Pam Hillman, M.S., [facility] [address] [place] [phone] 10/01/2024 11:00 AM PUBLIC RELATIONS ASSISTANT Office Visit Division of Endocrinology in [address] [phone] Dillon Ozuna APRN, C.N.P., M.S. [address] [place] [phone] 10/15/2024 3:15 PM PUBLIC RELATIONS ASSISTANT Office Visit Department of Otorhinolaryngology in [place], [place] [address] [place] [phone] Rafla Rankin M.D. [address] [place] [phone] 10/22/2024 8:30 AM PUBLIC RELATIONS ASSISTANT Clinical Communication Virtual Review in [place], [place] 200 [place] [address] 10/25/2024 10:30 AM PUBLIC RELATIONS ASSISTANT Comprehensive Visit Department of Neurology in [place], [place] [address] [place] [phone] Oziel Odonnell M.D. [address] [place] [phone] 11/15/2024 11:15 AM PUBLIC RELATIONS ASSISTANT Clinical Communication Virtual Review in [address] [phone] 11/18/2024 3:00 PM PUBLIC RELATIONS ASSISTANT Ancillary Procedure Department of Ophthalmology in [place], [place] [address] [place] [phone] 11/18/2024 3:30 PM PUBLIC RELATIONS ASSISTANT Office Visit Department of Ophthalmology in [address] [phone] Peña Carver M.D. [address] [place] [phone] documented as of this encounter Visit Diagnoses Diagnosis Dietary Counseling And Surveillance For Enteral Nutrition- Primary Dysphagia Stenosis Laryngeal Pneumonitis Due To Inhalation Of Food And Vomit (HCC) Gastrojejunostomy Percutaneous Status Post documented in this encounter Care Teams Active Directory Systems Administrator Relationship Specialty Start Date End Date Elsewhere, Pcp PCP - General Internal Medicine 02/26/24 documented as of this encounter
--- OUTSIDE RECORDS SUMMARY | 2024-09-07 17:32 | XMS_ITS | Encounter Summary ---
Author Organization [facility] Address [address] [place] [address] Care Team Providers Care Surveillance Monitor Name Role Phone Elsewhere, Pcp Primary Care Provider Unavailabl e Reason for Referral * Outpatient (Routine) - Closed Specialty Diagnoses / Procedures Referred By Contac t Referred To Contact Diagnoses Dietary Counseling And Surveillance For Enteral Nutrition Procedures EGD ? Percutaneous Endoscopic Gastrostomy/Jejunostomy rCistiane Palacio APRN, C.N.P., D.N.P. [address] [place] [address] Phone: tel: fax: [facility] Referral ID Status Reason Start Date Expiration Date Visits Re quested Visits Authorized [id number] Closed 06/18/2024 06/18/2025 1 1 * Outpatient (Routine) - Authorized Specialty Diagnoses / Procedures Referred By Contac t Referred To Contact Endocrinology Diagnoses Dietary Counseling And Surveillance For Enteral Nutrition Cristiane Palacio APRN, C.N.P., D.N.P. [address] [place] [phone] Phone: tel: fax: [facility] Referral ID Status Reason Start Date Expiration Date V isits Requested Visits Authorized [id number] Authorized 06/18/2024 12/18/2025 1 1 Scheduling Instructions TRIAGE ONLY Encounter Details Date Type Department Care Team (Late st Contact Info) Description 06/18/2024 Orders Only Division of Endocrinology in [place], [place] [address] [place] [address] Ankit Medina, R.N. Dietary Counseling And Surveillance For Enteral Nutrition (Primary Dx) Social History Tobacco Use Types Packs/Day Years Used Date Smoking Tobacco: Former Cigarettes Q uit: 1985 Smokeless Tobacco: Never Alcohol Use Standard Drinks/Week Comments Not Currently 0 (1 standard drink = 0.6 oz pur e alcohol) [facility] Utilities Answer Date Recorded In the past 12 months has e [employer], gas, oil, or water [employer] threatened to shut off services in your [...] your living situation today? I have a [facility] place to live 03/12/2024 Sex and Gender Information Value Date Recorded Sex Assigned at Male 03/12/2024 1:38 PM CDT Legal Sex Male 8:22 AM TAILOR'S AIDE Gender Identity Male 03/12/2024 1:38 PM CDT Sexual Orientation Straight 03/12/2024 1: 38 PM CDT documented as of this encounter Plan of Treatment Upcoming Encounters Date Type Department Care Team (Latest Contact Info) Description 10/01/2024 8:15 AM TAILOR'S AIDE Comprehensive Visit Department of Neurology in [place], [place] [address] [place] [phone] Dillon Ozuna APRN, C.N.P., M.S. 200 [place] [phone] Pam Hillman M.S., [facility] [address] [place] [phone] 10/01/2024 9:00 AM TAILOR'S AIDE Appointment Department of Radiology, [facility], in [place], [place] [address] [place] [phone] Dillon Ozuna APRN C.N.P., M.S. [address] [place] [phone] Pam Hillman M.S., [facility] [address] [place] [phone] 10/01/2024 9:45 AM TAILOR'S AIDE Clinical Support Department of Neurology in [place], [place] [address] [place] [phone] Dillon Ozuna APRN, C.N.P., M.S. [address] [place] [phone] Pam Hillman M.S., [facility] [address] [place] [phone] 10/01/2024 11:00 AM TAILOR'S AIDE Office Visit Division of Endocrinology in [address] [phone] Dillon Ozuna APRN, C.N.P., M.S. [address] [place] [phone] 10/15/2024 3:15 PM TAILOR'S AIDE Office Visit Department of Otorhinolaryngology in [place], [place] [address] [place] [phone] Rafal Rankin M.D. [address] [place] [phone] 10/22/2024 8:30 AM TAILOR'S AIDE Clinical Communication Virtual Review in [place], [place] 200 [place] [phone] 10/25/2024 10:30 AM TAILOR'S AIDE Comprehensive Visit Department of Neurology in [address] [phone] Oziel Odonnell M.D. [address] [place] [phone] 11/15/2024 11:15 AM TAILOR'S AIDE Clinical Communication Virtual Review in [place], [place] [address] [place] [phone] 11/18/2024 3:00 PM TAILOR'S AIDE Ancillary Procedure Department of Ophthalmology in [place], [place] [address] [place] [phone] 11/18/2024 3:30 PM TAILOR'S AIDE Office Visit Department of Ophthalmology in [place], [place] [address] [place] [phone] Peña Carver M.D. [address] [place] [phone] Scheduled Referrals Name Type Priority Associated Diagnoses Orde r Schedule Endocrinology - Home enteral medical nutrition therapy consult (clinic) Outpatient Referral Routine Dietary Counseling And Surveillance For Enteral Nutrition Expected: 06/18/2024 (Approximate), Expires: 09/18/2025 documented as of this encounter Visit Diagnoses Diagnosis Dietary Counseling And Surveillance For Enteral Nutrition- Primary documented in this encounter Care Teams Surveillance Monitor Relationship Specialty Start Date End Date Elsewhere, Pcp PCP - General Internal Medicine 02/26/24 documented as of this encounter
--- OUTSIDE RECORDS SUMMARY | 2024-09-07 17:32 | XMS_ITS | Encounter Summary ---
Author Organization [facility] Address [address] [place] [address] Care Team Providers Care Aircraft Structural Repair Mechanic Name Role Phone Elsewhere, Pcp Primary Care Provider Unavailabl e Reason for Visit * Reason Comments Scheduling Encounter Details Date Type Department Care Team (Late st Contact Info) Description 06/18/2024 Documentation Division of Endocrinology in [place], [place] [address] [place] [address] Imelda Morejon, REdithN. Scheduling Social History Tobacco Use Types Packs/Day Years Used Date Smoking Tobacco: Former Cigarettes Q uit: 1985 Smokeless Tobacco: Never Alcohol Use Standard Drinks/Week Comments Not Currently 0 (1 standard drink = 0.6 oz pur e alcohol) [facility] Utilities Answer Date Recorded In the [...] PM CDT Legal Sex Male 8:22 AM SURGICAL SPECIALIST Gender Identity Male 03/12/2024 1:38 PM CDT [...] a 30 minute slot, no anesthesia at --[facility], any complex doctor to do. Mona [...] (Latest Contact Info) Description 10/01/2024 8:15 AM SURGICAL SPECIALIST Comprehensive Visit Department of Neurology in [address] [phone] Dillon Ozuna APRN, C.N.P., M.S. [address] [place] [phone] Pam Hillman M.S., [facility]-CURATOR [employer] [address] [place] [phone] 10/01/2024 9:00 AM SURGICAL SPECIALIST Appointment Department of Radiology, [facility], in [address] [phone] Dillon Ozuna APRN, C.N.P., M.S. [address] [place] [phone] Pam Hillman M.S., CCC-CURATOR [employer] [address] [place] [phone] 10/01/2024 9:45 AM SURGICAL SPECIALIST Clinical Support Department of Neurology in [address] [phone] Dillon Ozuna APRN, C.N.P., M.S. [address] [place] [phone] Pam Hillman M.S., CCC-CURATOR [employer] [address] [place] [phone] 10/01/2024 11:00 AM SURGICAL SPECIALIST Office Visit Division of Endocrinology in [place], [place] [address] [place] [phone] Dillon Ozuna APRN, C.NEdithP., M.S. [address] [place] [phone] 10/15/2024 3:15 PM SURGICAL SPECIALIST Office Visit Department of Otorhinolaryngology in [address] [phone] Rafal Rankin M.D. [address] [place] [phone] 10/22/2024 8:30 AM SURGICAL SPECIALIST Clinical Communication Virtual Review in [address] [phone] 10/25/2024 10:30 AM SURGICAL SPECIALIST Comprehensive Visit Department of Neurology in [address] [phone] Oziel Odonnell M.D. [address] [place] [phone] 11/15/2024 11:15 AM SURGICAL SPECIALIST Clinical Communication Virtual Review in [address] [phone] 11/18/2024 3:00 PM SURGICAL SPECIALIST Ancillary Procedure Department of Ophthalmology in [address] [phone] 11/18/2024 3:30 PM SURGICAL SPECIALIST Office Visit Department of Ophthalmology in [address] [phone] Peña Carver M.D. [address] [place] [phone] documented as of this encounter Visit Diagnoses Not on filedocumented in this encounter Care Teams Aircraft Structural Repair Mechanic Relationship Specialty Start Date End Date Elsewhere, Pcp PCP - General Internal Medicine 02/26/24 documented as of this encounter
[2024-09-07] MEDS: 0.9 % SODIUM CHLORIDE 500 ML 500 ML IV ×2 (17:49→21:59)
[2024-09-07] MEDS: ONDANSETRON 2 MG/ML inj 4 MG IVP (17:49)
[2024-09-07 17:58] LABS: HCO3 VBG 34 mmol/L (21-28); PCO2 VBG 54 mmHG (40-50); pH VBG 7.399 (7.32-7.43)
[2024-09-07 18:00] LABS: Lactate Sepsis w/Reflex* 2.7 mmol/L (0.5-1.9)
[2024-09-07 18:01] LABS: Basophils Absolute Auto 0.04 K/uL (0.00-0.30); Basophils Percent Auto 0.4 % (0.0-3.0); Eosinophils Absolute Auto 0.13 K/uL (0.00-0.50); Eosinophils Percent Auto 1.2 % (0.0-7.0); Hematocrit 41.4 % (37.0-53.0); Hemoglobin* 13.4 gm/dL (13.5-17.5); Immature Granulocytes Abs Auto 0.02 K/uL (0.00-0.30); Immature Granulocytes Pct Auto 0.2 %; Lymphocytes Percent Auto 10.4 % (20-44); Mean Corpuscular HGB Conc 32 gm/dL (32-36); Mean Corpuscular Hemoglobin 31 pg (26-34); Mean Corpuscular Volume 95 fL (80-100); Monocytes Percent Auto 5.2 % (0.0-11.0); Neutrophils Percent Auto 82.6 % (42.0-72.0); Platelet Count* 178 K/uL (140-440); RDW Coefficient of Variation % 12.6 % (11.5-15.5); Red Blood Count 4.35 m/uL (4.30-5.90); White Blood Count* 10.96 K/uL (4.50-11.00)
[2024-09-07 18:02] LABS: Slide Review Reflex No
[2024-09-07 18:14] LABS: Albumin* 4.5 g/dL (3.3-5.0); Chloride* 94 mmol/L (96-114); Potassium* 4.7 mmol/L (3.6-5.1); Sodium* 135 mmol/L (135-149)
[2024-09-07 18:17] LABS: Alanine Aminotransferase* 27 U/L (4-50); Alkaline Phosphatase* 70 U/L (40-150); Anion Gap 9 mEq/L (7-15); Aspartate Amino Transferase* 49 U/L (12-35); Bilirubin Direct* 0.2 mg/dL (0.0-0.5); Bilirubin Total* 0.7 mg/dL (0.1-1.5); Blood Urea Nitrogen* 27 mg/dL (7-30); Carbon Dioxide* 32 mmol/L (20-32); Creatinine* 0.5 mg/dL (0.5-1.5); Estimated Glomerular Filt Rate 111 ml/min; Total Protein* 7.5 g/dL (6.0-8.3)
[2024-09-07 18:18] LABS: Calcium* 9.2 mg/dL (8.4-10.6); Glucose* 101 mg/dL (60-115)
[2024-09-07 18:28] LABS: C Reactive Protein* < 0.5 mg/dL (0.5-1.0)
[2024-09-07 18:34] LABS: Procalcitonin* 0.05 ng/mL (<0.50)
[2024-09-07] MEDS: METOCLOPRAMIDE HCL 10 MG in 0.9 % SODIUM CHLORIDE 100 ml 100 ML 306 MG IVPB (19:07)
[2024-09-07] MEDS: cefTRIAXone 1 GM in 0.9 % SODIUM CHLORIDE Mini-bag 100 ML IVPB (19:12)
[2024-09-07 20:04] LABS: Lactate Sepsis 2 Hour 1.3 mmol/L (0.5-1.9)
--- NOTE | 2024-09-07 21:09 | CRLHL7_ITS ---
For Patients: As a result of the Century Cures Act, medical imaging exams and procedure reports are released immediately into your electronic medical record. You may view this report before your referring provider. If you have questions, please contact your health care provider. INDICATION: Vomiting and decreased bowel sounds. TECHNIQUE: CT abdomen and pelvis acquired with 70 cc Omnipaque 370 IV contrast. COMPARISON: CT chest abdomen pelvis 12/20/2023. FINDINGS: Lower chest: Bibasilar tree-in-bud nodularity and consolidative opacities, increased compared to the previous exam. Liver: Unremarkable. Normal in size and attenuation. No suspicious masses. Gallbladder and bile ducts: Unremarkable. No stones or inflammation. No biliary dilatation. Pancreas: Unremarkable. No mass or inflammation. Spleen: Unremarkable. Normal in size. No masses. Adrenal glands: Unremarkable. No nodules. Kidneys: Unremarkable. No suspicious masses, stones, or hydronephrosis. GI tract: Percutaneous gastrojejunostomy tube. No bowel obstruction. Colonic diverticulosis without acute diverticulitis. No suspicious bowel wall thickening. Vasculature: No abdominal aortic aneurysm. Scattered atherosclerotic calcifications. Mesenteric arteries are patent. Lymph nodes: No suspicious lymphadenopathy. Peritoneum/Abdominal Wall: No ascites or pneumoperitoneum. No acute abdominal wall abnormality. Pelvis: Normal bladder. Unremarkable prostate and seminal vesicles. Bones: No acute or suspicious abnormality. IMPRESSION: 1. Interval increase in bibasilar tree-in-bud nodularity and consolidative opacities which may reflect infectious/inflammatory pulmonary process. 2. No acute intra-abdominal/pelvic pathology. 3. Colonic diverticulosis without acute diverticulitis. Please note that all CT scans at this facility use dose modulation, iterative reconstruction, and/or weight-based dosing when appropriate to reduce radiation dose to as low as reasonably achievable. Dictated by Fidencio Renee MD @ 09/07/2024 11:05:46 PM (Electronically Signed)
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
[2024-09-07] MEDS: TRAZODONE HCL 50 MG TABLET J-TUBE (22:52)
[2024-09-07] MEDS: AZITHROMYCIN 500 MG in 0.9 % SODIUM CHLORIDE 250 ml 250 ML 255 MG IVPB (22:52)
[2024-09-07] MEDS: ACETAMINOPHEN 325 MG TABLET 650 MG PO (23:14)
--- NOTE | 2024-09-07 23:50 | PC.NURSE ---
Pt arrived on unit at approx. 1999. PT VSS. A&). RA with O2 sat at 95%. At night while patient sleeps, O2 drops to mid to low 80's due to MATEO. Nasal cannula applied tonight for sleep at 3L and O2 sat. is 91%. Aspiration pneumonia suspected due to pt vomiting today and felt that they aspirated during vomiting. SBA with amb. No weakness. TPN and NPO.
[2024-09-08] MEDS: PIPERACILLIN/TAZOBACTAM 3.375 GM in 0.9 % SODIUM CHLORIDE Mini-bag 100 ML IVPB ×2 (00:29→06:37)
[2024-09-08 02:13] VITALS: BP 94/55; PULSE 71; RESP 20; TEMP 36.6; O2SAT 97
[2024-09-08 07:00] VITALS: BP 113/94; PULSE 71; PULSE 78; RESP 20; TEMP 36.7; O2SAT 94
[2024-09-08 07:01] LABS: Basophils Absolute Auto 0.03 K/uL (0.00-0.30); Basophils Percent Auto 0.3 % (0.0-3.0); Eosinophils Absolute Auto 0.18 K/uL (0.00-0.50); Eosinophils Percent Auto 1.8 % (0.0-7.0); Hematocrit 37.8 % (37.0-53.0); Hemoglobin* 12.1 gm/dL (13.5-17.5); Immature Granulocytes Abs Auto 0.01 K/uL (0.00-0.30); Immature Granulocytes Pct Auto 0.1 %; Lymphocytes Percent Auto 12.4 % (20-44); Mean Corpuscular HGB Conc 32 gm/dL (32-36); Mean Corpuscular Hemoglobin 31 pg (26-34); Mean Corpuscular Volume 97 fL (80-100); Monocytes Percent Auto 6.5 % (0.0-11.0); Neutrophils Percent Auto 78.9 % (42.0-72.0); Platelet Count* 144 K/uL (140-440); RDW Coefficient of Variation % 12.8 % (11.5-15.5); White Blood Count* 9.78 K/uL (4.50-11.00)
[2024-09-08 07:02] LABS: Slide Review Reflex No
--- NOTE | 2024-09-08 07:02 | PC.NURSE ---
Shift note: Pt has been on 1L OF OXYGEN THROUGH OXYMASK. ALERT AND ORIENTED. INTERMITTENT SUCTION TO CLEAR ORAL SECRETION. HEAD OF BED UP TO PREVENT ASPIRATION. FEEDING STARTED AT 0600 AT THE RATE OF 125ML/HR, FLUSHED WITH 125ML BEFORE FEEDING, SET TO FLUSH 60ML Q4H. DUE TREATMENT GIVEN AND RECORDED. NO FEVER RECORDED. PT HAD ADEQUATE SLEEP.
[2024-09-08 07:13] LABS: Chloride* 99 mmol/L (96-114); Potassium* 4.2 mmol/L (3.6-5.1); Sodium* 135 mmol/L (135-149)
[2024-09-08 07:16] LABS: Anion Gap 4 mEq/L (7-15); Blood Urea Nitrogen* 18 mg/dL (7-30); Carbon Dioxide* 32 mmol/L (20-32); Creatinine* 0.6 mg/dL (0.5-1.5); Est. Creatinine Clearance* 72.48; Estimated Glomerular Filt Rate 105 ml/min; Glucose* 93 mg/dL (60-115)
[2024-09-08 07:17] LABS: Calcium* 8.8 mg/dL (8.4-10.6)
[2024-09-08] MEDS: FINASTERIDE 5 MG TABLET J-TUBE (10:14)
[2024-09-08] MEDS: FAMOTIDINE 20 MG TABLET J-TUBE (10:14)
[2024-09-08] MEDS: SODIUM CHLORIDE 0.9 % (FLUSH) 10 ML SYRINGE 5 ML IVF (10:15)
--- NOTE | 2024-09-08 12:14 | PC.NURSE ---
Discharge note: Pt moving independently throughout his room without difficulty. VS WNL and LS with expiratory wheeze throughout. Tolerating his tube feeding well, AM medications administered as ordered through G or J tube. Pt was discharged to home in the care of his at 1220. Pt and his verbalized understanding of discharge instructions and follow up appointments.
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
== END 2024-09-08 12:20 | disposition home or self-care (01) ==
LOC: ED 19:24 → MEDSURG 19:29
PROVIDERS: Admitting Provider Family Medicine; Emergency Provider Emergency Medicine; PCP Family Medicine; Visit Provider Family Medicine
DX: J69.0 Pneumonitis due to inhalation of food and vomit (principal); J18.9 Pneumonia, unspecified organism; K57.30 Diverticulosis of large intestine without perforation or abscess without bleeding; R91.8 Other nonspecific abnormal finding of lung field; R09.02 Hypoxemia; R11.10 Vomiting, unspecified; R11.0 Nausea; R05.9 Cough, unspecified; R13.10 Dysphagia, unspecified; G47.33 Obstructive sleep apnea (adult) (pediatric); K20.90 Esophagitis, unspecified without bleeding; M12.80 Other specific arthropathies, not elsewhere classified, unspecified site; V19.9XXA Pedal cyclist (driver) (passenger) injured in unspecified traffic accident, initial encounter; Z93.1 Gastrostomy status; Z87.891 Personal history of nicotine dependence; Z86.0100 Personal history of colon polyps, unspecified; Z86.16 Personal history of COVID-19; Z98.890 Other specified postprocedural states; Z78.9 Other specified health status
CPT/HCPCS: 36415; 71046; 74177; 80048; 80076; 82803; 83605; 84145; 85025; 86140; 87040; 94761; 96361; 96365; 96367; 96375; 99284; 99285; G0378; A9270; J0456; J0696; J2405; J2543; J2765; J7030; J7050; Q9967

== ENCOUNTER 2024-12-24 12:30 | Outpatient (RCR) | payer MEDICARE, BC, SELFPAY ==
--- OUTSIDE RECORDS SUMMARY | 2024-11-12 14:13 | XMS_ITS | Continuity of Care Document ---
Author Organization [facility] Address [address] [place] [address] Care Team Providers Care Child Development Consultant Name Role Phone JANINE MORALES Primary Care Provider Assessment No assessment recorded. Plan of Treatment Reminders Order Date Submit Date Provider Last Modified By Organization Details Last Modified Time Details Appointments UROCUFF 15 2024 11:15A M UROCUFF Not available Not available Not available ESTABLISH ED 10 2024 02:10P M Siddhartha Cleary MD Not available Not available Not available Lab None recorded. Referral None recorded. Procedures None recorded. Surgeries None recorded. Imaging None recorded. Medication Orders None recorded. Patient TargetsNo targets recorded. Patient InstructionsNo instructions recorded. Reason for Referral None Reported. Procedures Surgical History Date Name Laterality Status Provider Name and Address Organization Details Recorded Time 10/09/20 24 COMPLEX VISIT completed Siddhartha Cleary MD [address] [place] [address],[address], [phone], [facility] 10/09/2024 09:17:47 10/08/20 24 Bladder Scan completed Rakan garrison [facility] 10/08/2024 12:39:07 10/08/20 24 Purdy - UroCuff completed Rakan garrison [facility] 10/08/2024 12:39:05 12/27/19 24 COMPLEX VISIT completed Siddhartha Cleary MD [address] [place] [address],[address] [place] [address], [phone], [facility] 12/27/2023 18:04:21 12/27/19 24 Bladder Scan completed Siddhartha Cleary MD [address] [place] [address],[address] [place], [phone], [facility] 12/27/2023 15:30:21 08/24/20 23 Bladder Scan cancelled Siddhartha Cleary MD [address] [facility],[address], [place], [address], [facility] 08/24/2023 09:05:59 05/11/20 23 UroCuff completed Ivanna Martienz [facility] 05/11/2023 13:37:35 05/11/20 23 Bladder Scan completed Ivanna Martinez [facility] 05/11/2023 13:36:20 02/16/20 23 Bladder Scan completed Margie Joshua [facility] 02/15/2023 11:22:06 procedure on lower leg completed Margie Joshua [facility] 02/15/2023 11:19:56 procedure on nose completed Margie Joshua [facility] 02/15/2023 11:20:10 procedure on eyelid completed Margie Joshua [facility] 02/15/2023 11:20:18 Imaging Results None recorded. Procedure Notes None recorded. Medical Equipment None Reported. Allergies Allergen ID Allergen Name Allergen Category Reaction Reaction Severity Criticality Documentation Date Start Date Code Code System Note Provider Name and Address Organization Details Recorded Time [id number] tolmetin sodium medicatio n hives Not available Not available 02/15/2023 62619 RxNorm Not Available Not Available Not Available [id number] 2824e Substance with sulfonami de structure and antibacte rial mechanism of action (substanc e) medicatio n Not available Not available Not available 10/09/2024 03483 8003 SNOMED Not Available Not Available Not Available [id number] 2824e adhesive tape environme nt,medica tion Not available Not available Not available 10/09/2024 14854 UNK Not Available Not Available Not Available Medications Name Sig Start Date Stop Date Status Note LastModified by Organization Details LastModified Time prednisone 10 mg tablet Take 3 tablets (30 mg) by mouth once daily for 5 days.* 12/27 completed Not Available Not Available Not Available trazodone 50 mg tablet TAKE ONE TABLET BY MOUTH/PER TUBE ONE TIME DAILY AT BEDTIME* active Not Available Not Available No t Available azithromyci n 250 mg tablet TAKE 2 TABLETS BY MOUTH ON DAY 1, THEN 1 TABLET DAILY ON DAYS 2-5.* 10/09 completed Not Available Not Available Not Available amoxicillin 600 mg-potassiu m clavulanate 42.9 mg/5 mL oral suspension take 10 mL by mouth every 12 hours for 5 days* 10/09 completed Not Available Not Available Not Available Compro 25 mg rectal suppository INSERT ONE SUPPOSITO RY RECTALLY TWICE DAILY* active Not Available Not Available No t Available promethazin e 6.25 mg-codeine 10 mg/5 mL syrup Take 5 mL by mouth every 4 hours if needed for Cough.* active Not Available Not Available No t Available prochlorper azine maleate 10 mg tablet TAKE ONE TABLET BY MOUTH EVERY EIGHT HOURS NEEDED* active Not Available Not Available No t [...] 40 mg/5 mL (8 mg/mL) oral suspension ADMINISTE R 2.5 ML VIA GASTRIC TUBE 2 TIMES A DAY.* active Not Available Not Available No t Available scopolamine 1 mg over 3 days transdermal patch APPLY 1 PATCH ON DRY, CLEAN, HAIRLESS SKIN BEHIND THE EAR EVERY 72 HOURS.* 12/27 completed Not Available Not Available Not Available methylpredn isolone 4 mg tablets in a dose pack Take by mouth as instructe d per packaging (on back of foil pouch).* 10/09 completed Not Available Not Available Not Available ondansetron 4 mg disintegrat ing tablet TAKE 1 tablet by mouth/Per Tube route every 6 hours as needed for nausea or vomiting. * active Not Available Not Available No t Available fluticasone propionate 50 mcg/actuati on nasal spray,suspe nsion Inhale 1 [place] into affected nostril(s ) two times daily.* active Not Available Not Available No t Available finasteride 5 mg tablet TAKE ONE TABLET BY MOUTH ONE TIME DAILY WITH LUNCH.* active Not Available Not Available No t Available metoclopram zora 10 mg tablet GIVE 0.5 TABLETS (5MG) VIA G-TUBE THREE TIMES DAILY NEEDED FOR NAUSEA.* active Not Available Not Available No t Available amoxicillin 875 mg-potassiu m clavulanate 125 mg tablet TAKE ONE TABLET BY MOUTH TWICE DAILY FOR 2 DAYS* 10/09 completed Not Available Not Available Not Available oxycodone 5 mg tablet TAKE 1 TABLET BY MOUTH/PER TUBE ROUTE NIGHTLY NEEDED FOR SEVERE PAIN* 12/27 completed Not Available Not Available Not Available escitalopra m 20 mg tablet TAKE ONE TABLET BY MOUTH EVERY DAY IN THE MORNING.* active Not Available Not Available No t Available escitalopra m 5 mg/5 mL oral solution TAKE 10 ML ONCE DAILY IN J- TUBE.* active Not Available Not Available No t Available moxifloxaci n 0.5 % eye drops [...] ONE TABLET BY MOUTH ONE TIME DAILY* 10/09 completed Not Available Not Available Not Available tadalafil 10 mg tablet Take 1 Tablet (10 mg) by mouth once daily if needed for Erectile dysfuncti on. Take 30 minutes before sexual activity. * 10/09 completed Not Available Not Available Not Available tadalafil 20 mg tablet Take 1 tablet every day by oral route. 2023 active Not Available Not Available Not Avai lable mirtazapine 7.5 mg tablet active Not Available Not Available Not Available esomeprazol e magnesium DR 40 mg granules delayed release for susp take 1 packet by mouth twice daily.* active Not Available Not Available No t [...] Not Available Not Available Not Available Vitals None Recorded Social History Question Answer Notes LastModified by Organizat ion Details LastModified Time Tobacco Smoking Status Former Smoker Margie Lewis [facility] 02/15/2023 11:19:11 What Is Your Level Of Alcohol Consumption? Moderate Information not available 02/15/2023 What Is Your Level Of Caffeine Consumption? Moderate Information not available 02/15/2023 When Did You Quit Smoking? 16+yearssince lastcigarette 1985 Information not available 02/15/2023 What Was The Date Of Your Most Recent Tobacco Screening? 10/09/2024 [email or web address] Information not available 10/09/2024 Have You Ever Been Counseled For Unhealthy Alcohol Use? No Information not available 10/09/2024 Do You Use Any Illicit Or Recreational Drugs? No [email or web address] Information not available 10/09/2024 Do You Or Have You Ever Used Any Other Forms Of Tobacco Or Nicotine? No Information not available 02/15/2023 How Many Days In The Past Year Have You Consumed 5 Or More Drinks? 0 [email or web address] Information no t available 10/09/2024 Sex: Unknown Functional Status None recorded. Mental [...] GERD/Acid Reflux N Sexually Transmitted Infection N Diabetes N Bleeding Disorder N Cancer N High Cholesterol N Heart Disease N Immunizations Vaccine Type Date Status Note Provider Nam e and Address Organization Details Recorded Time Influenza, high-dose, quadrivalent, PF 3 [facility] 10:56:06 Pneumococcal conjugate PCV20, polysaccharide [id number] conjugate, adjuvant, PF 3 [facility]09/2024 10:56:06 RSV, recombinant, protein subunit RSVpreF, adjuvant reconstituted, 0.5 mL, PF [facility] 10:56:06 COVID-19, mRNA, LNP-S, PF, 50 mcg/0.5 mL 3 [facility]2024 10:56:06 Tdap 3 [facility]09[facility]2024 10:56:06 Influenza, split virus, quadrivalent, preservative 6 [facility]23 17:07:16 zoster recombinant 8 [facility] 17:07:16 zoster recombinant 8 [facility] 17:07:16 Influenza, high-dose, quadrivalent, PF 1 completed Dorys campo, [facility] 09/07/2023 17:07:16 Influenza, adjuvanted, quadrivalent, PF [facility]16 COVID-19, mRNA, LNP-S, PF, 100 mcg/0.5mL dose or 50 mcg/0.25mL dose 1 completed Dorys campo [facility] 09/07/2023 17:07:16 COVID-19, mRNA, LNP-S, PF, 100 mcg/0.5mL dose or 50 mcg/0.25mL dose 1 completed Dorys campo [facility] 09/07/2023 17:07:16 COVID-19, mRNA, LNP-S, PF, 100 mcg/0.5mL dose or 50 mcg/0.25mL dose 2 completed Dorys campo [facility] 09/07/2023 17:07:16 COVID-19, mRNA, LNP-S, PF, 30 mcg/0.3 mL dose 1 [facility] 17:07:16 COVID-19, mRNA, LNP-S, bivalent, PF, 30 mcg/0.3 mL dose 2 completed Dorys campo [facility] 09/07/2023 17:07:16 pneumococcal polysaccharide PPV23 2 [facility] 17:07:16 Tdap 2 completed Dorys campo [facility] 09/07/2023 17:07:16 Novel Gvixzsool-[id number], all formulations 0 [facility] 17:07:16 zoster live 2 [facility] 17:07:16 Influenza, split virus, trivalent, preservative 3 completed Dorys Almejere null, [facility] 09/07/2023 17:07:16 Influenza, split virus, trivalent, preservative 0 completed Dorys Almejere null, [facility] 09/07/2023 17:07:16 Influenza, split virus, trivalent, preservative 8 completed Dorys Almejere null, [facility] 09/07/2023 17:07:16 Influenza, split virus, trivalent, preservative 7 completed Dorys Almejere null, [facility] 09/07/2023 17:07:16 Influenza, split virus, trivalent, preservative 3 completed Dorys Almejere null, [facility] 09/07/2023 17:07:16 Influenza, split virus, trivalent, preservative 5 completed Dorys Almejere null, [facility] 09/07/2023 17:07:16 Influenza, split virus, trivalent, PF 9 completed Dorys Almejere null, [facility] 09/07/2023 17:07:16 Td (adult), 5 Lf tetanus toxoid, preservative free, adsorbed 7 completed Dorys Almejere null, [facility] 09/07/2023 17:07:16 Td (adult), 2 Lf tetanus toxoid, preservative free, adsorbed 2 completed Dorys Almejere null, [facility] 09/07/2023 17:07:16 Influenza, split virus, quadrivalent, PF 4 completed Dorys Almejere null, [facility] 09/07/2023 17:07:16 Influenza, split virus, quadrivalent, PF 0 completed Dorys Almejere null, [facility] 09/07/2023 17:07:16 Influenza, split virus, quadrivalent, PF 9 completed Dorys Almejere null, [facility] 09/07/2023 17:07:16 Influenza, split virus, quadrivalent, PF 8 completed Dorys Fred alber, [facility] 09/07/2023 17:07:16 Influenza, split virus, quadrivalent, PF 7 completed Dorys Fred alber, [facility] 09/07/2023 17:07:16 Influenza, split virus, quadrivalent, PF 5 completed Dorys Bakerolman alber, [facility] 09/07/2023 17:07:16 Past Encounters Encounter ID Performer Location Encounter Start Date Encounter Closed Date Diagnosis/Indication Diagnosis SNOMED-CT Code Diagnosis ICD10 Code [id number] Rakan KEYES_Amelia [address] [place] [address] 10/08/2024 11:12:39 10/09/2024 13:27:42 Slowing of urinary stream [id number] R39.12 Health Concerns Section Related Observation LastModified by Organization Detai ls LastModified Time None Recorded Concern Status LastModified by Organization Details LastModified Time None Recorded Payers Encounter Date Sequence Insurance Name Policy Number Policy Cervantes Covered Member ID Cervantes Member ID Guarantor Name 10/08/2024 2 [place] [id number] Vinh Guillen [id number] Vinh Guillen 10/08/2024 1 [place] [employer] [facility] Vinh Guillen [id number] Vinh Guillen
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
--- OUTSIDE RECORDS SUMMARY | 2024-11-12 14:13 | XMS_ITS | Data Portability ---
Author Organization [place] [facility], [facility] Address [address] [facility] [address] [place] [address] Care Team Providers Care Taper Machine Name Role JANINE Travis Primary Care Provider Assessment Encounter Date Assessment Date Assessment LastModified by Organization Details LastModified Time 05/11/2023 05/11/2023 67 yoM with history of penile trauma, peyronie's disease, weak urine stream, Not available 05/11/2023 18:01:49 05/17/2023 05/17/2023 67 yoM with history of penile trauma, peyronie's disease, weak urine stream, [email or web address] Not available 05/15/2023 11:20:35 12/27/2023 12/27/2023 68 yoM with history of penile trauma, peyronie's disease, weak urine stream, rstromquist Not available 12/01/2023 15:20:28 10/09/2024 10/09/2024 68 yoM with history of penile trauma, peyronie's disease, weak urine stream, [email or web address] Not available 10/04/2024 16:36:45 Plan of Treatment [...] Please call pt to schedule 2023 024 [email or web address] [facility], [address], [place], [address], 10/23/2024 10:09:37 Referral None recorded. Procedures None recorded. Surgeries None recorded. Imaging None recorded. Medication Orders tadalafil 5 mg tablet 2022 023 [email or web address] [id number], [address], [address], 10/09/2024 11:36:56 finasteri de 5 mg tablet 2022 023 [id number], [address], [address], 05/17/2023 11:16:37 alfuzosin ER 10 mg tablet,ex tended release 24 hr 2022 023 [id number], [address], [address], 12/27/2023 15:29:48 tadalafil 20 mg tablet 2023 024 [id number], [address], [address], 10/09/2024 11:37:09 Patient TargetsNo targets recorded. Patient InstructionsNo instructions recorded. Reason for Referral None Reported. Results Created Date Observation Date Name Description Value Unit Range Abnormal Flag Note LastModifiedBy Organization Detail LastModifiedTime 11/04/20 24 11/05/2024 TESTO STERO NE, TOTAL , MALES (ADUL T), IA testosterone , total, males (adult), ia 104 NG/dL 250-82 7 low In hypog onada l males , Testo stero ne, Total , LC/MS /MS, is the recom solomon d assay due to the dimin ished accur acy of immun oassa y at level s below 250 ng/dL . This test code (1598 3) must be colle cted in a red-t op tube with no gel. Your reque st to have a Anatole bia copy faxed has been acmelo meghaedg ed. Queue d to: [phone] Not Available [facility] [address] [facility], [place], [address], 11/05/2024 09:16:59 05/11/20 23 05/11/2023 bladd er scan (PROC ) No observ ation record ed. Not Available 2022 11:36:44 Result Notes None recorded. Procedures Surgical History Date Name Laterality Status Provider Name and Address Organization Details Recorded Time 10/09/20 COMPLEX VISIT completed Siddhartha Cleary MD [address] [place] [address],[address], [place], [address], [facility] 10/09/2024 09:17:47 10/08/20 24 Bladder Scan completed Rakan [facility] 10/08/2024 12:39:07 10/08/20 24 [place] [facility] completed Rakan [facility] 10/08/2024 12:39:05 12/27/19 24 COMPLEX VISIT completed Siddhartha Cleary MD [address] [place] [address],[address], [place], [address], [facility] 12/27/2023 18:04:21 12/27/19 24 Bladder Scan completed Siddhartha Cleary MD [address] [place] [address],[address], [place], [address], [facility] 12/27/2023 15:30:21 08/24/20 23 Bladder Scan cancelled Siddhartha Cleary MD [address] [place] [address],[address], [place], [address], [facility] 08/24/2023 09:05:59 05/11/20 23 UroCuff completed Ivanna Martinez [facility] 05/11/2023 13:37:35 05/11/20 23 Bladder Scan completed Ivanna Martinez [facility] 05/11/2023 13:36:20 02/16/20 23 Bladder Scan completed Margie Lewis [facility] 02/15/2023 11:22:06 procedure on lower leg completed Margie Lewis [facility] 02/15/2023 11:19:56 procedure on nose completed Margie Lewis [facility] 02/15/2023 11:20:10 procedure on eyelid completed Margie Lewis [facility] 02/15/2023 11:20:18 Imaging Results Imaging Date Name Status LastModified by Organiz ation Details LastModified Time 05/11/2023 bladder scan (PROC) completed [email or web address] Information not available 05/17/2023 11:36:44 Procedure Notes None recorded. Medical Equipment None Reported. Allergies Allergen ID Allergen Name Allergen Category Reaction Reaction Severity Criticality Documentation Date Start Date Code Code System Note Provider Name and Address Organization Details Recorded Time [id number] 25848 tolmetin sodium medicatio n hives Not available Not available 02/15/2023 40261 RxNorm Not Available Not Available Not Available [id number] 2824e Substance with sulfonami de structure and antibacte rial mechanism of action (substanc e) medicatio n Not available Not available Not available 10/09/2024 28579 8003 SNOMED Not Available Not Available Not Available [id number] 2824e adhesive tape environme nt,medica tion Not available Not available Not available 10/09/2024 45374 UNK Not Available Not Available Not Available [...] mcg/actuati on nasal spray,suspe nsion Inhale 1 Hitchcock into affected nostril(s ) two times daily.* [...] Updated DateTime 05/17/2023 182.88 cm 24.4 kg/m2 58335.63 g Siddhartha Cleary MD [address] [place] [phone] [place] [address] 05/17/2023 10:52:26 Date Recorded Body height Body mass index (BMI) Body weight Provider Name and Address Organization Details Last Updated DateTime 12/27/2023 182.88 cm 19.1 kg/m2 08647.52 g Siddhartha Cleary MD [address] [place] [phone] [place] [address] 12/27/2023 15:28:13 Date Recorded Body height Body mass index (BMI) Body weight Provider Name and Address Organization Details Last Updated DateTime 10/09/2024 182.88 cm 21.3 kg/m2 42369 g Margie Woodson [facility] 10/09/2024 10:59:26 Social History Question Answer Notes LastModified by Organizat ion Details LastModified Time Tobacco Smoking Status Former Smoker Margie Lewis [facility], [facility] 02/15/2023 11:19:11 What Is Your Level Of Alcohol Consumption? Moderate Information not available 02/15/2023 What Is Your Level Of Caffeine Consumption? Moderate Information not available 02/15/2023 When Did You Quit Smoking? 16+yearssince lastcigarette 1985 Information not available 02/15/2023 What Was The Date Of Your Most Recent Tobacco Screening? 10/09/2024 [email or web address] Information not available 10/09/2024 Have You Ever Been Counseled For Unhealthy Alcohol Use? No Information not available 10/09/2024 Do You Use Any Illicit Or Recreational Drugs? No [email or web address] Information not available 10/09/2024 Do You Or Have You Ever Used Any Other Forms Of Tobacco Or Nicotine? No Information not available 02/15/2023 How Many Days In The Past Year Have You Consumed 5 Or More Drinks? 0 [email or web address] Information no t available 10/09/2024 Sex: Unknown [...] Pressure Y Kidney Stones N Depression N Sexually Transmitted Infection N Cancer N Bleeding Disorder N Lung Disease N GERD/Acid Reflux N High Cholesterol N Diabetes N Heart Disease N Immunizations Vaccine Type Date Status Note Provider Nam e and Address Organization Details Recorded Time Influenza, high-dose, quadrivalent, PF 3 [facility] 10:56:06 Pneumococcal conjugate PCV20, polysaccharide [id number] conjugate, adjuvant, PF 3 completed Demetrius Lara [facility] 10/09/2024 10:56:06 RSV, recombinant, protein subunit RSVpreF, adjuvant reconstituted, 0.5 mL, PF 3 [facility]09/2024 10:56:06 COVID-19, mRNA, LNP-S, PF, 50 mcg/0.5 mL 3 [facility] 10:56:06 Tdap 3 completed Demetrius Lara [facility] 10/09/2024 10:56:06 Influenza, split virus, quadrivalent, preservative 6 [facility]07/2023 17:07:16 zoster recombinant 8 completed Dorys Almedarlynre null, [facility] 09/07/2023 17:07:16 zoster recombinant 8 completed Dorys Almejere null, [facility] 09/07/2023 17:07:16 Influenza, high-dose, quadrivalent, PF 1 completed Dorys Lire null, [facility] 09/07/2023 17:07:16 Influenza, adjuvanted, quadrivalent, PF 2 completed Dorys Fernandoejere null, [facility] 09/07/2023 17:07:16 COVID-19, mRNA, LNP-S, PF, 100 mcg/0.5mL dose or 50 mcg/0.25mL dose 1 completed Dorys Lire null, [facility] 09/07/2023 17:07:16 COVID-19, mRNA, LNP-S, PF, 100 mcg/0.5mL dose or 50 mcg/0.25mL dose 1 completed Dorys Fernandoejere null, [facility] 09/07/2023 17:07:16 COVID-19, mRNA, LNP-S, PF, 100 mcg/0.5mL dose or 50 mcg/0.25mL dose 2 completed Dorys Lire null, [facility] 09/07/2023 17:07:16 COVID-19, mRNA, LNP-S, PF, 30 mcg/0.3 mL dose 1 completed Dorys Almejere null, [facility] 09/07/2023 17:07:16 COVID-19, mRNA, LNP-S, bivalent, PF, 30 mcg/0.3 mL dose 2 completed Dorys Lire null, [facility] 09/07/2023 17:07:16 pneumococcal polysaccharide PPV23 2 completed [facility] 17:07:16 Tdap 2 completed Dorysle Lire null, [facility] 09/07/2023 17:07:16 Novel Pfjjlmsee-I2P5-65, all formulations 0 completed Dorysle Bakerjere null, [facility] 09/07/2023 17:07:16 zoster live 2 completed Dorys Lire null, [facility] 09/07/2023 17:07:16 Influenza, split virus, trivalent, preservative 3 completed Dorys Almejere null, [facility] 09/07/2023 17:07:16 Influenza, split virus, trivalent, preservative 0 completed Dorys Bakerjere null, [facility] 09/07/2023 17:07:16 Influenza, split virus, trivalent, preservative 8 completed Dorys Lire null, [facility] 09/07/2023 17:07:16 Influenza, split virus, trivalent, preservative 7 completed Dorys Almejere null, [facility] 09/07/2023 17:07:16 Influenza, split virus, trivalent, preservative 3 completed Dorys Lire null, [facility] 09/07/2023 17:07:16 Influenza, split virus, trivalent, preservative 5 completed Dorys Lire null, [facility] 09/07/2023 17:07:16 Influenza, split virus, trivalent, PF 9 completed Dorys Almejere null, [facility] 09/07/2023 17:07:16 Td (adult), 5 Lf tetanus toxoid, preservative free, adsorbed 7 completed Dorys Oliviajere null, [facility] 09/07/2023 17:07:16 Td (adult), 2 Lf tetanus toxoid, preservative free, adsorbed 2 completed Dorys Kingkailynjere null, [facility] 09/07/2023 17:07:16 Influenza, split virus, quadrivalent, PF 4 completed Dorys Almejere null, [facility] 09/07/2023 17:07:16 Influenza, split virus, quadrivalent, PF 0 completed Dorys Almejere null, [facility] 09/07/2023 17:07:16 Influenza, split virus, quadrivalent, PF 9 completed Dorys Almejere null, [facility] 09/07/2023 17:07:16 Influenza, split virus, quadrivalent, PF 8 completed Dorys Almejere null, [facility] 09/07/2023 17:07:16 Influenza, split virus, quadrivalent, PF 7 completed Dorys Almejere null, [facility] 09/07/2023 17:07:16 Influenza, split virus, quadrivalent, PF 5 completed Dorys Almejere null, [facility] 09/07/2023 17:07:16 Past Encounters Encounter ID Performer Location Encounter Start Date Encounter Closed Date Diagnosis/Indication Diagnosis SNOMED-CT Code Diagnosis ICD10 Code [id number] Siddhartha Cleary MD [facility] [address] 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 [address] 05/11/2023 10:55:44 05/18/2023 11:24:31 Induration penis plastica 1702668 N48.6 Injury of penis 61632035 6 S30.93XD Slowing of urinary stream 55315022 R39.12 [id number] Siddhartha Cleary MD [facility] [address] [place] [address] 05/17/2023 10:47:54 05/22/2023 14:33:26 Induration penis plastica 3896497 N48.6 Injury of penis 26290362 6 S30.93XD Slowing of urinary stream 46482826 R39.12 Retrograde ejaculation 42055631 N53.14 [id number] Siddhartha Cleary MD [facility] [address] [place] [address] 12/27/2023 15:16:02 01/02/2024 14:10:57 Induration penis plastica 3551271 N48.6 Injury of penis 57408425 6 S30.93XD Slowing of urinary stream 00349691 R39.12 Retrograde ejaculation 68008488 N53.14 [id number] Siddhartha Cleary MD [facility] [address] [place] [address] 10/09/2024 10:53:49 10/14/2024 13:40:01 Induration penis plastica 8938385 N48.6 Injury of penis 50396990 6 S30.93XD Slowing of urinary stream 93614322 R39.12 Retrograde ejaculation 24954132 N53.14 Erectile dysfunction 860 285016 F52.21 Reduced libido 4768609 R 68.82 [id number] Miletzi Ramsey-V alero [facility] [address] [place] [address] 10/08/2024 11:12:39 10/09/2024 13:27:42 Slowing of urinary stream 12545055 R39.12 Health Concerns Section Related Observation LastModified by Organization Detai ls LastModified Time None Recorded Concern Status LastModified by Organization Details LastModified Time None Recorded Advance Directives Directive None Recorded Payers Encounter Date Sequence Insurance Name Policy Number Policy Cervantes Covered Member ID Cervantes Member ID Guarantor Name 05/11/2023 2 [place] [employer] [place] [address] [place] [id number] Vinh L Dresow 05/11/2023 1 [place] [employer] Vinh L Dresow [id number] Vinh L Dresow 05/17/2023 2 [place] 113 [address] [place] [id number] Vinh L Dresow 05/17/2023 1 [place] [employer] Vinh L Dresow [id number] Vinh L Dresow 12/27/2023 2 [facility] 113 Vinh L Dresow [id number] Vinh L Dresow 12/27/2023 1 [place] [facility] Vinh L Dresow [id number] Vinh L Dresow 10/08/2024 2 [facility]: [employer] EMPLOYEE PROGRAM 113 Vinh L [place] [id number] Vinh L Dresow 10/08/2024 1 [place] [facility] [place] [facility] Vinh L Dresow [id number] Vinh L Dresow 10/09/2024 2 [facility]: [facility] EMPLOYEE PROGRAM 113 Vinh L D[place]ow [id number] Vinh L Dresow 10/09/2024 1 [place] [facility] [place] [employer] [facility] Vinh L Dresow [id number] Vinh L [place] Notes Date Note Type Note Provider Name and Address Organization Details Recorded Time 05/17/2023 text/html Filiberto jimenez nt here for f/u history of penile [...] atypical for him. Siddhartha Cleary MD [address], [place], [address], [facility] 05/17/2023 11:37:51 12/27/2023 text/html Filiberto barbara nt here for f/u history of [...] intensive care unit stay. Hospital notes from [facility] reviewed. Due to concerns of hypotension his tamsulosin was stopped. He is seen today with his provides some of the history. At current he reports his most bothersome symptom is nocturia. Siddhartha Cleary MD [address], [place], [address], [facility] 12/27/2023 18:04:34 10/09/2024 text/html Surry barbara nt here for f/u history of [...] intensive care unit stay. Hospital notes from [facility] reviewed. Due to concerns of hypotension his [...] his Shobha today. Siddhartha Cleary MD [address], [place], [address], [facility] 10/09/2024 14:50:44
--- OUTSIDE RECORDS SUMMARY | 2024-11-12 14:14 | XMS_ITS | Encounter Summary ---
Author Organization [place] Address [address] [place] [address] Care Team Providers Care Machine Stapler Name Role Phone JurgenTami OD Unavailable [phone] Sandy Matta MD Primary Care Provider [phone] Tami Seaman OD Unavailable [phone] Guy Yost MD Unavailable + [phone] Encounter Details Date Type Department Care Team (Late st Contact Info) Description 07/16/2024 2:45 PM CDT Office Visit [facility] [address] [place] [address] Sandy Matta MD [address] [place] [address] [place] [address] Provider, Rashard Ent 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 -Zacarias Guido M.M., M.A., [facility]-BEE KEEPER Speech-Language Pathologist Certificate of Vocology documented in this encounter Progress Notes * Jeronimo Guido SLP - 07/16/2024 2:45 PM CDT [facility] Evaluation report Clinician: Jeronimo Guido M.M., M.A., [facility]/BEE KEEPER Seen in conjunction with: Dr. Cervantes Patient: [...] was seen by Dr. [facility]in [facility] the [facility] with discussion of possible avenues [...] SWALLOWING Please see my colleague Maryann Wilhelm CCC-BEE KEEPER's note from today's date for full details [...] please see Dr. Cervantes and Maryann Wilhelm, CCC-BEE KEEPER's notes from today's date for additional details [...] stressful 4 EAT-10 40 PERCEPTUAL EVALUATION (CPT 78485) POSTURE / TENSION: neck and shoulders BREATHING: [...] Dr. Cervantes and my colleague Bessie Wilhelm [facility]-BEE KEEPER's notes from today's date. Patient will be seen in the future as recommended by the physician. Certification period: Evaluation only This treatment plan was developed with the patient who agreed with the recommendations. TOTAL SERVICE TIME: 45 minutes EVALUATION OF VOICE AND RESONANCE (67146) NO CHARGE FACILITY FEE (73507) Jeronimo Guido M.M., M.A., [facility]-BEE KEEPER Speech-Language Pathologist Certificate of Vocology [phone] *this report was created in part through the use of computerized dictation software, and though reviewed following completion, some typographic errors may persist. If there is confusion regarding anyof this notes contents, please contact me for clarification.* documented in this encounter Plan of Treatment Not on file documented as of this encounter Procedures Procedure Name Priority Date/Time Associated Diagnosis Comments [facility] BE[facility]IORAL [facility] QUALITATIVE ANALYSIS VOICE AND RESONANCE Routine 07/23/2024 11:47 AM CDT Dysphonia Inspiratory stridor Bilateral vocal fold paralysis documented in this encounter Visit Diagnoses Diagnosis Dysphonia- Primary Inspiratory stridor Stridor Bilateral vocal fold paralysis Bilateral complete paralysis of vocal cords or larynx documented in this encounter Care Teams Machine Stapler Relationship Specialty Start Date End Date Sandy Matta MD [address] [place] [address] PCP - General Family Medicine 09/18/23 Tami Seaman, OD [address] [place] [address] [id number] Optometry 09/18/23 Tami Seaman, OD [address] [place] [address] [phone] Assigned Surgical Provider 10/14/23 Guy Yost MD [address] [place] [id number] Otolaryngology 01/22/24 documented as of this encounter
--- OUTSIDE RECORDS SUMMARY | 2024-11-12 14:14 | XMS_ITS | Encounter Summary ---
Author Organization [place] Address [address] [place] [address] Care Team Providers Care Matrix Plater Name Role Phone JurgenTami OD Unavailable [phone] Sandy Matta MD Primary Care Provider [phone] Tami Seaman OD Unavailable [phone] Guy Yost MD Unavailable [phone] Reason for Referral * Therapeutic Services (Routine: Next available opening) - Pending Review Specialty Diagnoses / Procedures Referred By Karine velasco Referred To Contact Diagnoses Dysphagia, oropharyngeal phase [facility] [address] [place] [address] Phone: tel: fax: Referral ID Status Reason Start Date Expiration Date V isits Requested Visits Authorized [id number] Pending Review 07/16/2024 07/16/2025 1 1 Question Answer Course of Action: Evaluation and Treatment Speech Treatment Diagnosis: Dysphagia Specialty Services: Clinical Swallow Study Scheduling Instructions: [facility] will call you to coordinate your care as prescribed by your provider. If you don't hear from a employee relations representative within 2 business days, please call . Additional Information: does not need to be scheduled Comments Please be aware that coverage of these services is subject to the terms and limitations of your health insurance plan. Call member services at your health plan with any benefit or coverage questions. [facility] will call you to coordinate your care as prescribed by your provider. If you don't hear from a employee relations representative within 2 business days, please call . Reason for Visit * Therapeutic Services (Routine: Next available opening) - Pending Review Specialty Diagnoses / Procedures Referred By Karine velasco Referred To Contact Diagnoses Dysphagia, oropharyngeal phase [facility] [address] [place] [address] Phone: tel: fax: Referral ID Status Reason Start Date Expiration Date V isits Requested Visits Authorized [id number] Pending Review 07/16/2024 07/16/2025 1 1 Encounter Details Date Type Department Care Team (Latest Contact Info) Description 07/16/2024 3:30 PM CDT Therapy Visit [facility] [address] [place] [address] Maryann Wilhelm Dysphagia, oropharyngeal phase (Primary Dx) Social History Tobacco Use Types Packs/Day Years Used Date Smoking Tobacco: Never Assessed PHQ-2 Answer Date Recorded PHQ-2 Score 0 01/09/2024 Adolescent Education Answer Date Record ed Getting School Help Needed Not on file 09/21 Sex and Gender Information Value Date Recorded Sex Assigned at Not on file 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 Maryann Wilhelm MS, CCC-CUFF SETTER Speech-Language Pathology [facility] Department of Otolaryngology/D&T - 4th floor Email: documented in this encounter Plan of Treatment Scheduled Referrals Name Type Priority Associated Diagnoses Orde r Schedule Speech Therapy Fur Operator Referral Referral Routine: Next available opening Dysphagia, oropharyngeal phase Expected: 07/16/2024 (Approximate), Expires: 07/16/2025 documented as of this encounter Visit Diagnoses Diagnosis Dysphagia, oropharyngeal phase- Primary documented in this encounter Care Teams Matrix Plater Relationship Specialty Start Date End Date Sandy Matta MD [address] [place] [address] PCP - General Family Medicine 09/18/23 Tami Seaman, OD [address] [place] [address] Optometry 09/18/23 Tami Seaman, OD [address] [place], [place] [address] Assigned Surgical Provider 10/14/23 Guy Yost MD [address] [place] [address] Otolaryngology 01/22/24 documented as of this encounter
--- OUTSIDE RECORDS SUMMARY | 2024-11-12 14:14 | XMS_ITS | Encounter Summary ---
Author Organization [facility] Address [address] [place] [address] Care Team Providers Care Burn Nurse Name Role Phone Tami Seaman OD Unavailable [phone] Sandy Matta MD Primary Care Provider [phone] Tami Seaman OD Unavailable [phone] Guy Yost MD Unavailable + [phone] Encounter Details Date Type Department Care Team (Latest Contact Info) Description 04/07/2024 Travel Social History Tobacco Use Types Packs/Day Years Used Date Smoking Tobacco: Never Assessed PHQ-2 Answer Date Recorded PHQ-2 Score 0 01/09/2024 Adolescent Education Answer Date Record ed Getting School Help Needed Not on file 09/21 Sex and Gender Information Value Date Recorded Sex Assigned at Not on file 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
--- OUTSIDE RECORDS SUMMARY | 2024-11-12 14:14 | XMS_ITS | Encounter Summary ---
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, sequela Recurrent aspiration pneumonia (H) Sandy Matta MD [address] [place] [address] Phone: tel: fax: Guy Yost MD [address] [place] [address] Phone: tel: fax: Referral ID Status Reason Start Date Expiration Date V isits Requested Visits Authorized [id number] Pending Review 01/23/2024 01/22/2025 1 1 Encounter Details Date Type Department Care Team (Late st Contact Info) Description 07/16/2024 2:45 PM CDT Office Visit [facility] [address] [place] [phone] Sandy Matta MD [address] [place] [address] Elaina Cervantes MD [address] [place] [address] Dysphonia (Primary Dx); Oropharyngeal dysphagia; Trauma to [...] on file Legal Sex Male 3:58 PM CEO Gender Identity Not on file Sexual Orientation [...] or concerns after your appointment, please call [phone]. Press option #1 for scheduling related needs. Press option #3 for Nurse advice. 2. Dr. Cervantes has recommended the following: - Z-pack and medrol dose pack for breathing difficulties 3. Plan is to return to clinic as needed How to Contact Us: Send a [employer] message to your provider. Our team will respond to you via [employer]. Occasionally, wewill need to call you to get further information. For urgent matters (Monday-Monday, 8:00 AM-3:30 PM), call the ENT Clinic: [phone] and speak with a call center steam power plant operator - they will route your call appropriately. If you'd like to speak directly with a nurse, please call [phone]. We do our best to check voicemail frequently throughout the day, and will work to call you back within 1-2 days. For urgent matters, please use the general clinic phone numbers listed above. Ivanna Cary [phone] [facility] - Otolaryngology documented in this encounter Progress Notes * Elaina Cervantes MD - 07/16/2024 3:30 PM CDT Images from the original note were not included. [facility] the [facility] Otolaryngology Clinic Patient: Vinh Guillen : [...] in the past, recommend going back to [place] to compare exams and decide how they want to proceed Plan - return to [place] to compare exams - abx/steroids for any breathing worsening RETURN VISIT: pending [place] discussion Referring Provider PCP: Sandy Matta Referring Physician: Sandy Matta MD [address] [place] [address] Reason for Consultation Dysphagia Dyspnea History HISTORY [...] sodium chloride (OCEAN) 0.65 % nasal spray, [place] 1-2 sprays in nostril, Disp: , Rfl: [...] Resource Strain: Low Risk (01/26/2024) Re[facility] from [facility], [facility] Financial Resource Strain Difficulty of Paying Living Expenses: 3 Difficulty of Paying Living Expenses: Not on file Food Insecurity: No Food Insecurity (03/12/2024) Received from [facility] Hunger Vital Sign Worried About Running Out of Food in the Last Year: Never true Ran Out of Food in the Last Year: Never true Transportation Needs: No Transportation Needs (03/12/2024) Received from [facility] PRAPARE - Transportation Lack of Transportation (Medical): No Lack of Transportation (Non-Medical): No Physical Activity: Inactive (03/12/2024) Received from [facility] Exercise Vital Sign Days of Exercise per Week: 0 days Minutes of Exercise per Session: 0 min Stress: Not on file Social Connections: Socially Integrated (01/26/2024) Received from [facility] [place] [facility], [facility] Social Connections Frequency of Communication with Friends and Family: 0 Interpersonal Safety: Not At Risk (02/27/2024) Received from [facility] Humiliation, Afraid, Rape, and Kick questionnaire Fear of Current or Ex-Partner: No Emotionally Abused: No Physically Abused: No Sexually Abused: No Housing Stability: Low Risk (03/12/2024) Received from [facility] Housing Stability What is your [...] limits and noncontributory. Procedures Flexible laryngoscopy (CPT 43839) Pre-procedure diagnosis: dysphonia Post-procedure diagnosis: same as [...] hesitate to contact me. Elaina Cervantes MD [employer] Laryngology [facility] Department of Otolaryngology - Head and Neck Surgery [facility] [address] [place] [address] Appointment line: [phone] [email or web address] documented in this encounter Plan of Treatment Not on file documented as of this encounter Procedures Procedure Name Priority Date/Time Associated Diagnosis Comments SD LARYNGOSCOPY FLEX FIBEROPTIC, DIAGNOSTIC Routine 07/16/2024 [...] vomitus documented in this encounter Care Teams Clinical Lab Specialist Relationship Specialty Start Date End Date Sandy Matta MD [address] [place] [address] PCP - General Family Medicine 09/18/23 Tami Seaman, OD [address] [place] [address] Optometry 09/18/23 Tami Seaman, OD [address] [place] [address] Assigned Surgical Provider 10/14/23 Guy Yost MD [address] [place] [address] Otolaryngology 01/22/24 documented as of this encounter
--- OUTSIDE RECORDS SUMMARY | 2024-11-12 14:14 | XMS_ITS | Clinical Summary ---
Author Organization [facility] Address [place], [place] [address] Care Team Providers Care Sawdust Drier Name Role Phone Sandy Matta Primary Care Provider Allergies Active Allergy Reactions Criticality Noted Date Comments Adhesive Tape-Silicones Contact Dermatitis High 05/15/2024 New reaction as of 05/15/2024. Medium reaction. Sulfamethoxazole-Trime thoprim Hives,Rash,Itching High 12/02/2023 whole body hives severe. pics reviewed. Tolmetin Hives 07/12/2007 Medications Blood Pressure MonitorIndicatio ns:HTN (hypertension), benign 1 Device 0 01/06/20 16 Active durable medical equipment (DME)Indications :Oropharyngeal dysphagia 60cc syringe, threaded 100 Each 10/24/20 23 Active durable medical equipment (DME)Indications :Oropharyngeal dysphagia Feed bags 100 Each 10/24/20 23 Active acetaminophen (TYLENOL) 325 mg tablet 650 mg. 10/10/20 23 Active food supplemt, lactose-reducedI ndications:Phary ngoesophageal dysphagia,Trache ostomy status (HC),Oropharynge al dysphagia complete peptide 1.5 calories at 85ml/hour (7 cartons total daily) via g tube. Free water flushes 150ml every 4 hours (total 900ml total per day) via g tube. Please give 30 days at a time. 2000 mL 11 12/13/19 24 Active disposable glovesIndication s:S/P percutaneous endoscopic gastrostomy (PEG) tube placement (HC) For home use. 200 Each 2 12/25/19 24 Active NexIUM Packet 40 mg grps 12/24/19 24 Active NaCl 0.9% 0.9 % sodium chloride neb solutionIndicati ons:Acute aspiration pneumonia (HC) Inhale 1 Neb via a nebulizer every 4 hours if needed for Wheezing. 45 mL 2 12/26/19 24 Active prochlorperazine (COMPAZINE) 25 mg suppositoryIndic ations:Nausea and vomiting, unspecified vomiting type Insert 1 Suppository (25 mg) rectally every 12 hours if needed for Nausea/Vomiting . 01/29/20 24 Active fluticasone (50 mcg per actuation) nasal solution (FLONASE)Indicat ions:Nasal obstruction Inhale 1 Pilot into affected nostril(s) two times daily. 16 g 3 01/31/20 24 Active durable medical equipment (DME)Indications :Gastrojejunosto my tube status (HC) 12ml enteral syringe NeoMed with ENFIT CONNECTOR 6 Each 03/19/20 24 Active durable medical equipment (DME)Indications :On tube feeding diet [facility] feed bag Ref# [id number] 30 Each 11 03/27/20 24 Active escitalopram oxalate (LEXAPRO) 20 mg tabletIndication s:Reactive depression Take 1 Tablet (20 mg) by mouth once daily in the morning. 90 Tablet 3 06/04/20 24 Active mag/aluminum/sod bicarb/alginc (GAVISCON ORAL) Take by mouth. Active famotidine (PEPCID) 40 mg/5 mL suspension Administer 20 mg via G-tube. 07/31/20 24 Active tadalafiL (CIALIS) 10 mg tabletIndication s:Erectile dysfunction of organic origin Take 1 Tablet (10 mg) by mouth once daily if needed (Erectile dysfunction). Take 30 minutes before sexual activity. 10 Tablet 11 08/05/20 24 Active Additional Information Patient taking differently: 5 mgOralDAILY, Take 30 minutes before sexual activity., Reported on 09/17/2024 promethazine-cod eine (PHENERGAN WITH CODEINE) 6.25-10 mg/5 mL syrupIndications :Dry heaves,Post-jasvir l cough syndrome Take 5 mL by mouth every 4 hours if needed for Cough. 473 mL 08/09/20 24 Active traZODone (DESYREL) 50 mg tabletIndication s:Insomnia due to medical condition Administer 50 mg (1 tablet) at bedtime through feeding tube. 90 Tablet 1 10/21/20 24 Active finasteride (PROSCAR) 5 mg tabletIndication s:Lower urinary tract symptoms (LUTS) Take 1 Tablet (5 mg) by mouth once daily. 90 Tablet 2 11/11/20 24 Active finasteride (PROSCAR) 5 mg tablet TAKE ONE TABLET BY MOUTH ONE TIME DAILY* 05/13/20 23 024 Discontin ued(Reord er (E-cancel not sent)) traZODone (DESYREL) 50 mg tablet Administer 50 mg through feeding tube. 10/10/20 23 024 Discontin ued(Reord er (E-cancel not sent)) traZODone (DESYREL) 50 mg tabletIndication s:Insomnia due to medical condition Administer 50 mg (1 tablet) through feeding tube. 90 Tablet 1 10/21/20 24 024 Discontin ued(Reord er (E-cancel not sent)) Active Problems Problem Noted Date Diagnosed Date [...] Encounters Date Type Department Care Team Description 11/07/2024 E-Visit [facility] [address] [facility] [place] [address] Sandy Matta DO Vinh has fluid on his elbow 11/07/2024 Refill [facility] [address] [place] [address] Sandy Matta DO Refill Request (finasteride) 11/04/2024 9:30 AM SALES AGENT INSURANCE Orders Only [facility] [place] [address] Lab, [facility] Lab 11/04/2024 Travel 10/31/2024 Travel 10/21/2024 Telephone [facility] [address] [place] [address] Sandy Matta DO Medication Management (traZODone (DESYREL) 50 mg tablet) 10/21/2024 Refill [facility] [address] [place] [address] Sandy Matta DO Refill Request (Trazodone HCL oral tablet 50mg) 10/16/2024 Refill [facility] [address] [place] [address] Sandy Matta DO Refill Request (trazodone) 09/17/2024 1:20 PM SALES AGENT INSURANCE Office Visit [facility] [address] [place] [address] Selena Mlilan PA UTI 09/16/2024 Travel 09/07/2024 Orders Only [facility] Scanner 1 scan: (1-Ord) [place], CT ABDOMEN PELVIS W CON, 09/07/2024 09/07/2024 Orders Only [facility] Scanner 1 scan: (1-Ord) [facility], CHEST 2V, 09/07/2024 08/19/2024 1:50 PM CDT Office Visit [facility] [address] [place] [address] Sandy Matta DO Follow Up (pneumonia and covid); Fatigue 08/18/2024 Travel from Last 3 Months Immunizations Name Administration Dates Next Due AMB Influenza, IIV3 (Age >=3 years)(Flu Clinic Only) 08/07/2013,10/21/2009,09/05/2008 AMB Influenza, IIV4 PF (=>6 mos Flulaval,Fluzone Fluarix)(Flu Clinic Only) 08/04/2020,08/15/2019,07/31/2014 COVID-19 vaccine (Moderna 100mcg/0.5mL) PF, MDV 01/24/2021,12/29/2020 COVID-19 vaccine (Temnos-Bio NTech 30mcg/0.3mL) PF, MDV 10/11/2021 Influenza A (H1N1), Inactiva manju (Age >=3 Years) 2009 Influenza Virus, Unspecified 07/22/2022, 09/02/2021,08/04/2020,01/2019,08/24/2018,09/08/2017,08/22/20 16,09/11/2015,07/31/2014,08/19/2013,0 08/07/2013,08/27/2010,10/21/2009,09/05,09/06/2007,09/13/2006, 5,09/09/2003 Influenza, High-dose Quadriv alent [...] Smoking Tobacco: Former Cigarettes 0.5 5 1 903 - 4166 Smokeless Tobacco: Never Tobacco Cessation:Counseling Given: Yes Alcohol Use Standard Drinks/Week Comments Not Currently 7 (1 standard drink = 0.6 oz pur e alcohol) [facility] Utilities Answer Date Recorded Do you have trouble paying f or utilities (for example, heat, electricity, water, phone)? Yes 01/26/2024 PHQ-2 Answer Date Recorded PHQ-2 TOTAL SCORE 0 08/05/2024 Social Connections Answer Date Recorded Do you often feel lonely or isolated from those around you? 0 01/26/2024 Financial Resource Strain Answer Date R ecorded Difficulty of Paying Living Expenses 3 01/26/2024 Difficulty of Paying Living Expenses Not on file 01/26/2024 Food Insecurity Answer Date Recorded Do you worry your food will run out before you are able to buy more? 1 01/26/2024 Transportation Needs Answer Date Record ed Does lack of transportation keep you from medica l appointments? 1 01/26/2024 Does lack of transportation keep you from work, meetings or getting things that you need? 1 01/26/2024 Housing Stability Answer Date Recorded What is your housing situation today? 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 Not on file Not on file Not on f ile Obstetrics History Last Filed Vital Signs Vital Sign Reading Time Taken Comments Blood Pressure 113/74 09/17/2024 1:30 PM SALES AGENT INSURANCE Pulse 74 09/17/2024 1:30 PM SALES AGENT INSURANCE Temperature 36.5 C (97.7 F) 08/19/2024 1:54 PM CDT Respiratory Rate 18 03/17/2021 10:19 AM CDT Oxygen Saturation 94% 09/17/2024 1:30 PM SALES AGENT INSURANCE Inhaled Oxygen Concentration - - Weight 73.8 kg (162 lb 9.6 oz) 09/17/2024 1:30 P M SALES AGENT INSURANCE Height 180.7 cm (5' 11.13) 08/05/2024 2:31 PM C DT Body Mass Index 22.6 08/05/2024 2:31 PM CDT Plan of Treatment [...] Additional history exists Pneumococcal series for age 50+ Completed 06/07/2023, 06/07/2023, 01/12/2022 RSV vaccine for adults or Completed 08/01/2023 Tdap Completed 08/14/2023, 05/04/2012 Influenza for age 65+ Completed 08/05/2024 , 10/11/2023, 07/22/2022, Additional history exists Procedures Procedure Name Priority Date/Time Associated Diagnosis Comments URINALYSIS MACROSCOPIC - [facility] ONLY POC DIP ([facility]) Routine 09/17/2024 2:05 PM SALES AGENT INSURANCE Lower urinary tract symptoms (LUTS) URINE CULTURE Routine 09/17/2024 2:04 PM SALES AGENT INSURANCE Lower urinary tract symptoms (LUTS) URINALYSIS MICROSCOPIC Routine 2:04 PM SALES AGENT INSURANCE Lower urinary tract symptoms (LUTS) POST VOID RESIDUAL BLADDER SCAN Routine 09/17/2024 12:00 AM SALES AGENT INSURANCE Lower urinary tract symptoms (LUTS) SCAN-CT INTERPRETATION 12:00 AM CDT SCAN-RADIOLOGY REPORT 09/07/2024 12:00 AM CDT LIPID PANEL W REFLEX MEASURED LDL Routine 06/07/2023 2:09 PM CDT Lipid screening COLONOSCOPY SCREENING Routine 06/14/2021 12:00 AM CDT Personal history of colonic polyps ANTI HCV Routine 12/07/2015 8:46 AM SALES AGENT INSURANCE Need for hepatitis C screening test from Last 3 Months or Most Recently Relevant to Health Maintenance Results * POCT Urinalysis Dipstick Only (09/17/2024 2:05 PM SALES AGENT INSURANCE) Pathologist [facility] PH 6.0 5.0 - 8.0 [facility] SPECIFIC GRAVITY 1.015 1.001 - 1.035 [facility] GLUCOSE NEGATIVE NEGATIVE [facility] BILIRUBIN NEGATIVE NEGATIVE [facility] KETONES NEGATIVE NEGATIVE [facility] OCCULT BLOOD NEGATIVE NEGATIVE [facility] PROTEIN NEGATIVE NEGATIVE [facility] NITRITE NEGATIVE NEGATIVE [facility] LEUKOCYTE ESTERASE NEGATIVE NEGATIVE [facility] Urine URINE SPECIMEN / Unknown 09/17/2024 2:05 PM SALES AGENT INSURANCE 09/17/2024 2:05 PM SALES AGENT INSURANCE us Selena QUIROS URINE Final Result Performing Organization Address City/[facility]/ZIP Co de Phone Number [facility] [address] [place] [address], [facility] [address] [place] [address] * URINALYSIS MICROSCOPIC (09/17/2024 2:04 PM SALES AGENT INSURANCE) Pathologist [facility] WBC UA NONE SEEN < OR = 5 /HPF [facility] RBC UA NONE SEEN < OR = 2 /HPF [facility] SQUAMOUS EPITHELIAL CELLS UA NONE SEEN < OR = 5 /HPF [facility] BACTERIA UA NONE SEEN NONE SEEN /HPF [facility] HYALINE CAST NONE SEEN NONE SEEN /LPF [facility] NOTE UA [facility] Comment: This urine was analyzed for the presence of WBC, RBC, bacteria, casts, and other formed elements. Only those elements seen were reported. Urine URINE SPECIMEN / Unknown 09/17/2024 2:04 PM SALES AGENT INSURANCE 09/17/2024 2:04 PM SALES AGENT INSURANCE us Selena QUIROS URINE Final Result Performing Organization Address [facility]/ZIP Co de Phone Number [employer] [facility] [address] [place] [address], [place] [phone] [facility] [address] [place] [address] * URINE CULTURE (09/17/2024 2:04 PM SALES AGENT INSURANCE) CULTURE, URINE, ROUTINE SEE NOTE [facility] Comment: CULTURE, URINE, ROUTINE Micro Number: [id number] Test Status: Final Specimen Source: Urine Specimen Quality: Adequate Result: No Growth Urine URINE SPECIMEN / Unknown 09/17/2024 2:04 PM SALES AGENT INSURANCE 09/17/2024 2:04 PM SALES AGENT INSURANCE Selena QUIROS MICROBIOLOGY Final Result Performing Organization Address [facility] Co de Phone Number [employer] [facility] [address] [place] [address], [place] [phone] [facility] [address] [place] [address] * POST VOID RESIDUAL BLADDER SCAN (09/17/2024 12:00 AM SALES AGENT INSURANCE) Selena QUIROS NURSING - BLADDER/JACINTO L MGMNT Final Result * SCAN-RADIOLOGY REPORT (09/07/2024 12:00 AM CDT) Anatomical Region Laterality Modality Other us Scanner OTHER Final Result * SCAN-CT INTERPRETATION (09/07/2024 12:00 AM CDT) Anatomical Region Laterality Modality Other us Scanner OTHER Final Result * (ABNORMAL) LIPID PANEL W REFLEX MEASURED LDL (06/07/2023 2:09 PM CDT) CHOLESTEROL,TOTAL 228(H) 100 - 199 mg/dL 06/08/2023 12:14 AM CDT [facility] Comment: Cholesterol, Total Reference Ranges Desirable <200 mg/dL Borderline 200-239 mg/dL High >=240 mg/dL TRIGLYCERIDES 132 <150 mg/dL 06/08/2023 12:14 AM CDT [facility] HDL CHOLESTEROL 72 >40 mg/dL 12:14 AM CDT [facility] NON-HDL CHOLESTEROL 156(H) <145 mg/dl 06/08/2023 12:14 AM CDT [facility] CHOL/HDL RATIO 3.17 <4.50 06/08/2023 12:14 AM CDT [facility] LDL CHOLESTEROL 130 <=130 mg/dL 06/08/2023 12:14 AM CDT [facility] VLDL CHOLESTEROL 26 <=30 mg/dL 06/08/2023 12:14 AM CDT [facility] PROVIDER ORDERED STATUS RANDOM 06/08/2023 12:14 AM CDT [facility] Blood BLOOD SPECIMEN / Unknown Venipuncture / Unknown 06/07/2023 2:09 PM CDT 06/07/2023 2:09 PM CDT Sandy Matta DO CHEMISTRY Final Resul t [facility] [address] [place] [address], * COLONOSCOPY SCREENING (06/14/2021 12:00 AM CDT) Sandy Matta DO GI PROCEDURE ORD Final Resu lt * ANTI HCV [[id number]] (12/07/2015 8:46 AM SALES AGENT INSURANCE) HEPATITIS C ANTIBODY Non-Reacti ve Non-Reacti ve 12/07/2015 1:24 PM SALES AGENT INSURANCE [facility] Blood specimen (specimen) BLOOD SPECIMEN / Unknown Venipuncture / Unknown 12/07/2015 8:46 AM SALES AGENT INSURANCE 12/07/2015 8:46 AM SALES AGENT INSURANCE Narrative [facility] - 12/07/2015 1:24 PM SALES AGENT INSURANCE Antibodies to HCV not detected; does not exclude the possibility of exposure to HCV. Sandy Milena Matta DO SEND OUTS Final Resul t [facility] [address] [place] [address], [place] from Last 3 Months or Most Recently Relevant to Health Maintenance Insurance [facility] MEDICARE [place] ONLY MEDICARE PART A HB ONLY MEDICARE PART B HB ONLY Advance Directives * Full Code (Latest Code Status on File) Date Activated Date Inactivated Comments 09/18/2013 12:03 AM 09/19/2013 1:12 PM Care Teams Sawdust Drier Relationship Specialty Start Date End Date Sandy Matta DO [address] [place] [address] PCP - General Family Practice 11/12/15
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
--- OUTSIDE RECORDS SUMMARY | 2024-11-12 14:14 | XMS_ITS | Encounter Summary ---
Author Organization [place] Address [address] [place] [address] Care Team Providers Care Airplane Gastank Liner Assembler Name Role Phone JurgenTami OD Unavailable [phone] Sandy Matta MD Primary Care Provider [phone] Tami Seaman OD Unavailable [phone] Guy Yost MD Unavailable + [phone] Reason for Visit * Reason Onset Date Comments Path Results 02/23/2024 Encounter Details Date Type Department Care Team (Late st Contact Info) Description 02/23/2024 [facility] [address] [address] Guy Yost MD [address] [place] [address] Path Results Social History Tobacco Use Types Packs/Day Years Used Date Smoking Tobacco: Never Assessed PHQ-2 Answer Date Recorded PHQ-2 Score 0 01/09/2024 Adolescent Education Answer Date Record ed Getting School Help Needed Not on file 09/21 Sex and Gender Information Value Date Recorded Sex Assigned at Not on file Legal Sex Male 3:58 PM POLICY OFFICER Gender Identity Not on file Sexual Orientation Not on file documented as of this encounter Miscellaneous Notes * Telephone Encounter - Sadie Pathak - 02/23/2024 12:56 PM CDT Health Call Center Phone Message May a detailed message be left on voicemail: yes Reason for Call: Other: Referring provider Dr Matta, she would like to discuss the pt as she is concerned and 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 Please call Nataliia @ [phone]. [facility] [place], Thanks Action Taken: Other: ENT Travel Screening: Not Applicable documented in this encounter Plan of Treatment Not on file documented as of this encounter Visit Diagnoses Not on filedocumented in this encounter Care Teams Airplane Gastank Liner Assembler Relationship Specialty Start Date End Date Sandy Matta MD [address] [place] [address] PCP - General Family Medicine 09/18/23 Tami Seaman, OD [address] [place], [place] [address] Optometry 09/18/23 Tami Seaman, OD [address] [place], [place] [id number] Assigned Surgical Provider 10/14/23 Guy Yost MD [address] [place] [address] Otolaryngology 01/22/24 documented as of this encounter
--- OUTSIDE RECORDS SUMMARY | 2024-11-12 14:14 | XMS_ITS | Encounter Summary ---
Author Organization [facility] Address [address] [place] [address] Care Team Providers Care Production Broacher Name Role Phone JurgenTami OD Unavailable [phone] Sandy Matta MD Primary Care Provider [phone] Tami Seaman OD Unavailable [phone] Guy Yost MD Unavailable + [phone] Encounter Details Date Type Department Care Team (Late st Contact Info) Description 07/19/2024 [facility] [place] [facility] [address] [address] Jeronimo Guido, [address] [id number] Social History Tobacco Use Types Packs/Day Years Used Date Smoking Tobacco: Never Assessed PHQ-2 Answer Date Recorded PHQ-2 Score 0 01/09/2024 Adolescent Education Answer Date Record ed Getting School Help Needed Not on file 09/21 Sex and Gender Information Value Date Recorded Sex Assigned at Not on file Legal 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
--- OUTSIDE RECORDS SUMMARY | 2024-11-12 14:14 | XMS_ITS | Encounter Summary ---
Author Organization [facility] Address [address], [place] [address] Care Team Providers Care Nurse Liaison Name Role Phone Found, No Pcp Primary Care Provider Unavailab le Reason for Visit * Reason Comments PHONE CALL TO PATIENT Encounter Details Date Type Department Care Team (Late st Contact Info) Description 04/09/2020 Telephone Rheumatology at [address] [place] [address] Ronak Mosley MD [address] [place] [phone] PHONE CALL TO PATIENT Social History Tobacco Use Types Packs/Day Years Used Date Smoking Tobacco: Former Smokeless Tobacco: Former Quit: 11/12/1985 Comments:Quit smoking: Sex and Gender Information Value Date Recorded Sex Assigned at Not on file Gender Identity Not on file Sexual Orientation Not on file documented as of this encounter Nursing Notes * Elenita Richter LPN - 04/10/2020 8:55 AM CDT Patient informed. Verbalized understanding. * Ronak Mosley MD - 04/09/2020 5:05 PM CDT Yes he can cancel his labs. I am fine with him waiting until October to see me so long as he is feeling fine. * Adelaida Ford LPN - 04/09/2020 2:18 PM CDT Pt called asking if he can cancel his monitoring labs for MTX. Pt stopped MTX one month ago and Cornelina is asking that pt contact providers to delay their labs if possible. He usually schedules an appt and labs in April with you also. Do you want him to get labs and schedule a follow up with you in April? He has one scheduled for 2019. Please advise. documented in this encounter Plan of Treatment Not on file documented as of this encounter Visit Diagnoses Not on filedocumented in this encounter Care Teams Nurse Liaison Relationship Specialty Start Date End Date Found, No Pcp, [address] [place] [address] PCP - General 10/18/18 documented as of this encounter
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
--- OUTSIDE RECORDS SUMMARY | 2024-11-12 14:14 | XMS_ITS | Encounter Summary ---
Author Organization [facility] Address [address] [place] [address] Care Team Providers Care Growth Hacker Name Role Phone Tami Seaman OD Unavailable [phone] Sandy Matta MD Primary Care Provider [phone] Reason for Visit * Reason Onset Date Comments Appointment 09/28/2023 Encounter Details Date Type Department Care Team (Late st Contact Info) Description 09/28/2023 Telephone [facility] - [address] [address] Tami Seaman, OD [address] [place] [address] Appointment Social History Tobacco Use Types Packs/Day Years Used Date Smoking Tobacco: Never Assessed Adolescent Education Answer Date Record ed Getting School Help Needed Not on file 09/21 Sex and Gender Information Value Date Recorded Sex Assigned at Not on file Legal Sex Male 3:58 PM REEL 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 Additionally, patient as another identical appointment scheduled for 10/09/23. Provided Eye Clinic number for any scheduling conflicts and to cancel one of the appointments that is no longer needed. TENDER documented in this encounter Plan of Treatment Not on file documented as of this encounter Visit Diagnoses Not on filedocumented in this encounter Care Teams Growth Hacker Relationship Specialty Start Date End Date Sandy Matta MD [address] [place] [address] PCP - General Family Medicine 09/18/23 Tami Seaman OD [address] [place] [address] Optometry 09/18/23 documented as of this encounter
--- OUTSIDE RECORDS SUMMARY | 2024-11-12 14:14 | XMS_ITS | Encounter Summary ---
Author Organization [facility] Address [address] [place] [address] Care Team Providers Care Supervisor Broadloom Name Role Phone Found, No Pcp Primary Care Provider Unavailab le Reason for Visit * Reason Comments Follow-up Encounter Details Date Type Department Care Team (Late st Contact Info) Description 10/28/2020 2:00 PM DRIFT MINER Office Visit Rheumatology at [place] [address] [place] [address]. [place] [address] Ronak Mosley MD [address] [place] [phone] HLA-B27 positive arthropathy (Primary Dx); Primary osteoarthritis of right shoulder Social History Tobacco Use Types Packs/Day Years Used Date Smoking Tobacco: Former Smokeless Tobacco: Former Quit: 11/12/1985 Comments:Quit smoking: Sex and Gender Information Value Date Recorded Sex Assigned at Not on file Gender Identity Not on file Sexual Orientation Not on file documented as of this encounter Last Filed Vital Signs Vital Sign Reading Time Taken Comments Blood Pressure 128/77 10/28/2020 1:49 PM DRIFT MINER Pulse 69 10/28/2020 1:49 PM DRIFT MINER Temperature 36.4 C (97.5 F) 10/28/2020 1:49 PM DRIFT MINER Respiratory Rate - - Oxygen Saturation - - Inhaled Oxygen Concentration - - Weight - - Height - - Body Mass Index - - documented in this encounter Patient Instructions * Patient Instructions* Ronak Mosley MD - 10/28/2020 2:00 PM DRIFT MINER Topical diclofenac (Voltaren) 1% gel as need on right shoulder three times daily T MINER documented in this encounter Progress Notes * Ronak Mosley MD - 10/28/2020 2:00 PM CST RHEUMATOLOGY CLINIC FOLLOW-UP VISIT SUBJECTIVE: Vinh Guillen returns for follow-up regarding his HLA-B27 arthritis, iritis,??mild plantar fasciitis,??and left knee pain??(in part patello-femoral). I last saw him October of 2019. At that visit, we cut his weekly methotrexate dose further back to 5 mg once weekly. Subsequently, after the start of the Covid pandemic, he stopped methotrexate altogether. He continues to have occasionalmodest knee discomfort as before. Moreover, more recently he strained his right shoulder doing a task with his arm raised for extended periods of time and has had some right shoulder pain since. He does get some pain with adduction of flexion of the right shoulder beyond 90 degrees, and some discomfort if he lies on the right shoulder for extended periods of time. He has not had any flares of inflammatory arthritis or iritis in the months he has been off of methotrexate. Otherwise, no increased visible joint swelling, visible redness, or palpable joint warmth. Otherwise, denies any increased cough, shortness of breath, mouth sores, swollen glands, fevers, recurrent infections Medications updated Medication Epic File Review of systems positive for: nil else Rest of review of systems is negative according to the Follow-Up Rheumatology Problem Review Questionnaire OBJECTIVE: Vital signs are in vitals/pain ambulatory flow sheet MUSCULOSKELETAL: Joints Right Left MCP???s S__ T__ S__ T__ PIP???s S__ T__ S__ T__ 1st CMC???s S__ T___ S__ T__ Wrists S__ T___ S__ T__ Elbows S__ T___ S__ T__ Shoulders S__ T___ S__ T__ Knees S__ T___ S__ T__ Ankles S__ T___ S__ T__ MTP???s S__ T___ S__ T__ No tenderness over the subacromial bursae, glenohumeral joints, or AC joints However, a superior osteophyte is palpable at the right AC joint Loss of motion: none Pain on motion: none Misalignment / Deformity: very mild left hallux valgus Osteophytes: thumb IP joints, left first MTP Nodules: none ?? Tender 28 Joint Count: 0 Swollen 28 Joint Count: 0 In all four limbs, joints otherwise without swelling, tenderness, warmth, erythema, loss of motion,pain on motion, misalignment, deformity or instability. Most recent pertinent laboratory studies; Lab Results Component Value Date EXT RSLT - WBC 4.5 08/07/2020 RBC 4.35 10/31/2019 EXT RSLT - HGB 14.8 08/07/2020 HCT 41.5 10/31/2019 MCV 95.4 10/31/2019 RDW 12.4 10/31/2019 EXT RSLT - PLATELET COUNT 170 08/07/2020 Lab Results Component Value Date EXT RSLT - ALT 17 08/07/2020 Lab Results Component Value Date EXT RSLT - CREATININE 0.95 08/07/2020 IMPRESSIONS: 1. HLA-B27 arthritis and iritis, in remission. 2. Mild right shoulder pain, that I suspect originates from an osteoarthritic AC joint PLANS: After discussing current mutually agreed on goals for our therapeutic interventions, we mutually agreed to do the following; 1. He will stay off of DMARD medication at this time 2. Trial of topical diclofenac 1% get to top of right shoulder as needed three times daily 3. Return to rheumatology as needed. He will call if his arthritis flares. T MINER documented in this encounter Plan of Treatment Not on file documented as of this encounter Visit Diagnoses Diagnosis HLA-B27 positive arthropathy- Primary Other specified arthropathy, site unspecified Primary osteoarthritis of right shoulder Primary localized osteoarthrosis, shoulder region documented in this encounter Care Teams Supervisor Broadloom Relationship Specialty Start Date End Date Found, No PcpMD [address] [place] [address] PCP - General 10/18/18 documented as of this encounter
--- OUTSIDE RECORDS SUMMARY | 2024-11-12 14:14 | XMS_ITS | Encounter Summary ---
Author Organization [facility] Address [address] [place] [address] Care Team Providers Care Brand Representative Name Role Phone Tami Seaman OD Unavailable [phone] Sandy Matta MD Primary Care Provider [phone] Tami Seaman OD Unavailable [phone] Guy Yost MD Unavailable + [phone] Encounter Details Date Type Department Care Team (Latest Contact Info) Description 04/12/2024 Travel Social History Tobacco Use Types Packs/Day Years Used Date Smoking Tobacco: Never Assessed PHQ-2 Answer Date Recorded PHQ-2 Score 0 01/09/2024 Adolescent Education Answer Date Record ed Getting School Help Needed Not on file 09/21 Sex and Gender Information Value Date Recorded Sex Assigned at Not on file Legal Sex Male 3:58 PM BRADLEY LINEBACKER 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
--- OUTSIDE RECORDS SUMMARY | 2024-11-12 14:14 | XMS_ITS | Referral Summary ---
Author Organization [facility] Address [address] [place] [address] Care Team Providers Care Panel Wirer Name Role Phone JurgenTami OD Unavailable [phone] Sandy Matta MD Primary Care Provider [phone] Tami Seaman OD Unavailable [phone] Guy Yost MD Unavailable [phone]- [phone] Allergies Active Allergy Reactions Criticality Noted Date [...] sodium chloride (OCEAN) 0.65 % nasal spray [place] 1-2 sprays in nostril 4 Active traZODone (DESYREL) 50 MG tablet 50 mg by Per G Tube route 3 Active tadalafil (CIALIS) 5 MG tablet Take 5 mg by mouth daily Active escitalopram (LEXAPRO) 5 MG/5ML solution TAKE 10 ML ONCE DAILY IN J- TUBE.* Active methylPREDNISol one (MEDROL DOSEPAK) 4 MG tablet therapy packIndications :Oropharyngeal dysphagia,Recur rent aspiration pneumonia (H) Take as directed per patient instruction card 21 tablet 4 Active dexlansoprazole (DEXILANT) 30 MG CPDR CR capsule Take 30 mg by mouth. 4 11/08/20 24 Active Problems No known active problems Social History Tobacco Use Types Packs/Day Years Used Date Smoking Tobacco: Never Assessed PHQ-2 Answer Date Recorded PHQ-2 Score 0 01/09/2024 Adolescent Education Answer Date Record ed Getting School Help Needed Not on file 09/21 Sex and Gender Information Value Date Recorded Sex Assigned at Not on file Legal Sex Male 3:58 PM RADIO COMMUNICATIONS SUPERINTENDENT Gender Identity Not on file Sexual Orientation [...] CDT Plan of Treatment Not on file [place] [address] [facility] [employer]ICARE [facility] [employer] PRO[employer] Care Teams Panel Wirer Relationship Specialty Start Date End Date Sandy Matta MD [address] [place] [address] PCP - General Family Medicine 09/18/23 Tami Seaman, OD [address] [place], [place] 24[address] Optometry 09/18/23 Tami Seaman, OD [address] [place], [place] [address] Assigned Surgical Provider 10/14/23 Guy Yost MD [address] [place] [address] Otolaryngology 01/22/24
--- OUTSIDE RECORDS SUMMARY | 2024-11-12 14:14 | XMS_ITS | Encounter Summary ---
Author Organization [facility] [facility] Address [address] [place] [address] Care Team Providers Care Equipment Oiler Name Role Phone Tami Seaman OD Unavailable [phone] Sandy Matta MD Primary Care Provider [phone] Tami Seaman OD Unavailable [phone] Guy Yost MD Unavailable + [phone] Encounter Details Date Type Department Care Team [...] on file Legal Sex Male 3:58 PM CLINIC RECEPTIONIST Gender Identity Not on file Sexual Orientation Not on file documented as of this encounter Plan of Treatment Not on file documented as of this encounter Visit Diagnoses Not on filedocumented in this encounter Care Teams Equipment Oiler Relationship Specialty Start Date End Date Sandy Matta MD [address] [place] [address] PCP - General Family Medicine 09/18/23 Tami Seaman OD [address] [place] [address] Optometry 09/18/23 Tami Seaman OD [address] [place] [address] Assigned Surgical Provider 10/14/23 Guy Yost MD [address] [place] [address] Otolaryngology 01/22/24 documented as of this encounter
--- OUTSIDE RECORDS SUMMARY | 2024-11-12 14:14 | XMS_ITS | Encounter Summary ---
Author Organization [facility] Address [address] [place] [address] Care Team Providers Care Gelatin Dynamite Packing Operator Name Role Phone JurgenTami OD Unavailable [phone] Sandy Matta MD Primary Care Provider [phone] Tami Seaman OD Unavailable [phone] Guy Yost MD Unavailable + [phone] Reason for Visit * Reason Onset Date Comments Previsit 04/09/2024 Encounter Details Date Type Department Care Team (Late st Contact Info) Description 04/09/2024 PRE VISIT [facility] [address] [place] [address] Guy Yost MD [address] [place] [address] Previsit Social History Tobacco Use Types Packs/Day Years Used Date Smoking Tobacco: Never Assessed PHQ-2 Answer Date Recorded PHQ-2 Score 0 01/09/2024 Adolescent Education Answer Date Record ed Getting School Help Needed Not on file 09/21 Sex and Gender Information Value Date Recorded Sex Assigned at Not on file Legal Sex 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 CSC verified. Records in Epic. Higher priority referral being sent. Please send message when received. Please call [phone] Sandy Matta-PCP for more information RECORDS REQUESTED FROM: Clinic name Comments Records Status Imaging Status [facility] 01/26/24, 01/22/24- referral Sandy Matta MD 12/29/23, 12/12/23 - OV Ari Lopes MD More in CE Images: 02/14/24- XR Video Swallow [facility] 02/27/24- pending req [facility] 02/14/24- Pending req 02/27/24- Received rec [facility] 10/09/23- XR Chest 10/02/23- XR Chest 10/01/23- XR Chest 09/29/23- XR Chest 09/19/23- CT Head 09/19/23- CT Spine 09/05/23- XR Chest 09/01/23- XR Chest 08/30/23- XR Chest 08/29/23- XR Chest [facility] 02/14/24- Pending req Disc received 02/22/24 February 14, 2024 11:49 AM - Faxed a request to [facility] for records - Lilibeth February 14, 2024 12:07 PM - Faxed a request to [facility] to send imaging disc - Lilibeth February 20, 2024 1:08 PM Called [facility] to follow on disc and Jean said that they didn't received anything and they did received a FedEx shipping label but didn't received the request so they just threwit away. So he told me to refax it. - Lilibeth February 20, 2024 1:14 PM - Faxed a 2nd request to [facility] for records - Lilibeth February 22, 2024 10:18 AM - Imaging disc received from [facility] and send to Kimberlee Damon for upload -Paola February 27, 2024 10:25 AM Called [facility] to follow on rec request and robin said she will work on it and send it out to us - Lilibeth February 27, 2024 11:14 AM- Received records from [facility] and sent it to scan- Lilibeth February 27, 2024 2:39 PM - Faxed a request to [facility] to push Image to [facility] PACS- Lilibeth tracheostomy, patient has had this in place since September 21 documented in this encounter Plan of Treatment Not on file documented as of this encounter Visit Diagnoses Not on filedocumented in this encounter Care Teams Gelatin Dynamite Packing Operator Relationship Specialty Start Date End Date Sandy Matta MD [address] [place] [address] PCP - General Family Medicine 09/18/23 Tami Seaman, OD [address] [place], [place] [address] Optometry 09/18/23 Tami Seaman, OD [address] [place], [place] 4258[address] Assigned Surgical Provider 10/14/23 Guy Yost MD [address] [place] [address] Otolaryngology 01/22/24 documented as of this encounter
--- OUTSIDE RECORDS SUMMARY | 2024-11-12 14:14 | XMS_ITS | Clinical Summary ---
Author Organization [facility] Address [address] [place] [address] Care Team Providers Care Account Executive Software Sales Name Role Phone JurgenTami OD Unavailable [phone] Sandy Matta MD Primary Care Provider Tami Seaman OD Unavailable [phone] Guy Yost MD Unavailable [phone] Allergies Active Allergy Reactions Criticality Noted Date [...] sodium chloride (OCEAN) 0.65 % nasal spray [place] 1-2 sprays in nostril 4 Active traZODone [...] 24 Active Problems No known active problems Family History Medical History Relation Comments Glaucoma [...] on file Legal Sex Male 3:[address] Gender Identity Not on file Sexual [...] IMMUNIZATION Completed 08/24/2018, 06/15/2018, 05/04/2012 Pneumococcal Vaccine: 50+ Years Completed 06/07/2023, 01/12/2022 PHQ-2 (once per calendar year) Completed 01/09/2024, 10/13/2023 HPV IMMUNIZATION Aged Out No longer e ligible based on patient's age to complete this topic MENINGITIS IMMUNIZATION Aged Out No l onger eligible based on patient's age to complete this topic RSV MONOCLONAL ANTIBODY Aged Out No l onger eligible based on patient's age to complete this topic Insurance ([place]ona) [facility] [address] MEDICARE [facility] FEDERAL EMPLOYEE PROGRAM MEDICARE [facility] FED[employer] EM[employer]OYEE PROGRAM Care Teams Account Executive Software Sales Relationship Specialty Start Date End Date Sandy Matta MD [address] [place] [address] PCP - General Family Medicine 09/18/23 Tami Seaman, OD [address] [place] [address] Optometry 09/18/23 Tami Seaman, OD [address] [place] [address] Assigned Surgical Provider 10/14/23 Guy Yost MD [address] [place] [address] Otolaryngology 01/22/24
--- OUTSIDE RECORDS SUMMARY | 2024-11-12 14:14 | XMS_ITS | Encounter Summary ---
Author Organization [facility] Address [address] [place] [address] Care Team Providers Care V Belt Inspector Name Role Phone Tami Seaman OD Unavailable [phone] Sandy Matta MD Primary Care Provider [phone] Tami Seaman OD Unavailable [phone] Encounter Details Date Type Department Care Team (Latest Contact Info) Description 01/02/2024 Travel Social History Tobacco Use Types Packs/Day Years Used Date Smoking Tobacco: Never Assessed PHQ-2 Answer Date Recorded PHQ-2 Score 0 10/13/2023 Adolescent Education Answer Date Record ed Getting School Help Needed Not on file 09/21 Sex and Gender Information Value Date Recorded Sex Assigned at Not on file 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 Gender Identity Not on file Sexual Orientation Not on file documented as of this encounter Plan of Treatment Not on file documented as of this encounter Visit Diagnoses Not on filedocumented in this encounter Care Teams V Belt Inspector Relationship Specialty Start Date End Date Sandy Matta MD [address] [place] [address] [place] [address] PCP - General Family Medicine 09/18/23 Tami Seaman OD [address] [place] [address]53[address] Optometry 09/18/23 Tami Seaman OD [address] [place] [address] Assigned Surgical Provider 10/14/23 documented as of this encounter
--- OUTSIDE RECORDS SUMMARY | 2024-11-12 14:14 | XMS_ITS | Encounter Summary ---
Author Organization [facility] Address [address], [place] [address] Care Team Providers Care Administrative Executive Name Role Phone Found, No Pcp Primary Care Provider Unavailab le Reason for Visit * Reason Comments Medication Questions Encounter Details Date Type Department Care Team (Late st Contact Info) Description 02/14/2020 Telephone Rheumatology at [address] [place] [address] Ronak Mosley MD [address] [place] [phone] Medication Questions Social History Tobacco Use Types Packs/Day Years Used Date Smoking Tobacco: Former Smokeless Tobacco: Former Quit: 11/12/1985 Comments:Quit smoking: Sex and Gender Information Value Date Recorded Sex Assigned at Not on file Gender Identity Not on file Sexual Orientation Not on file documented as of this encounter Nursing Notes * Elenita Richter LPN - 02/14/2020 12:09 PM CDT Patient informed. Verbalized understanding. * Ronak Mosley MD - 02/14/2020 12:01 PM CDT Yes, very reasonable to stop now, let us know if joint pain / swelling return. * Elenita Richter LPN - 02/14/2020 8:33 AM CDT Patient states he is taking methotrexate 2 tablets weekly. He states he is tapering off one tablet a year. He wants to know during this pandemic if now would be a good time to stop. Thank you. documented in this encounter Plan of Treatment Not on file documented as of this encounter Visit Diagnoses Not on filedocumented in this encounter Care Teams Administrative Executive Relationship Specialty Start Date End Date Found, No Pcp, [address] [place] [address] PCP - General 10/18/18 documented as of this encounter
--- OUTSIDE RECORDS SUMMARY | 2024-11-12 14:14 | XMS_ITS | Encounter Summary ---
Author Organization [facility] Address [address] [place] [address] Care Team Providers Care Herbarium Curator Name Role Phone JurgenTami OD Unavailable [phone] Sandy Matta MD Primary Care Provider [phone] Tami Seaman OD Unavailable [phone] Guy Yost MD Unavailable + [phone] Reason for Visit * Reason Onset Date Comments Previsit 07/16/2024 Encounter Details Date Type Department Care Team (Late st Contact Info) Description 07/16/2024 PRE VISIT [facility] [address] [address] Elaina Cervantes MD [address] [place] [address] Previsit Social History Tobacco Use Types Packs/Day Years Used Date Smoking Tobacco: Never Assessed PHQ-2 Answer Date Recorded PHQ-2 Score 0 01/09/2024 Adolescent Education Answer Date Record ed Getting School Help Needed Not on file 09/21 Sex and Gender Information Value Date Recorded Sex Assigned at Not on file 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 CSC verified. Records in [facility]. Higher priority referral being sent. Please send message when received. Please call [phone] Sandy Matta-PCP for more information RECORDS REQUESTED FROM: Clinic name Comments Records Status Imaging Status [facility] 01/26/24, 01/22/24- referral Sandy Matta MD 12/29/23, 12/12/23 - OV Ari Lopes MD More in CE Images: 02/14/24- XR Video Swallow 05/13/2024 XR chest [facility] 02/27/24- pending req [facility]ACS [facility] 02/14/24- Pending req 02/27/24- Received [facility] 10/09/23- XR Chest 10/02/23- XR Chest 10/01/23- XR Chest 09/29/23- XR Chest 09/19/23- CT Head 09/19/23- CT Spine 09/05/23- XR Chest 09/01/23- XR Chest 08/30/23- XR Chest 08/29/23- XR Chest [facility] 02/14/24- Pending req Disc received 02/22/24 [facility] 03/19/2024 OV with Rafal Rankin M.D. Imagin03/22/2024 FL SWALLOW [facility] Req 06/24/24 PACS June 24, 2024 10:51 AM - request to [facility] to push images to [facility] -Paola June 26, 2024 10:40 AM - Images received and resolved in PACS -Paola documented in this encounter Plan of Treatment Not on file documented as of this encounter Visit Diagnoses Not on filedocumented in this encounter Care Teams Herbarium Curator Relationship Specialty Start Date End Date Sandy Matta MD [address] [place] [address] PCP - General Family Medicine 09/18/23 Tami Seaman, OD [address] [place] [address] Optometry 09/18/23 Tami Seaman, OD [address] [place], [place] 2515[address] Assigned Surgical Provider 10/14/23 Guy Yost MD [address] [place] [address] Otolaryngology 01/22/24 documented as of this encounter
--- OUTSIDE RECORDS SUMMARY | 2024-11-12 14:14 | XMS_ITS | Encounter Summary ---
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
--- OUTSIDE RECORDS SUMMARY | 2024-11-12 14:14 | XMS_ITS | Encounter Summary ---
Author Organization [facility] Address [address] [place] [address] Care Team Providers Care Club Lounge Attendant Name Role Phone Tami Seaman OD Unavailable [phone] Sandy Matta MD Primary Care Provider [phone] Tami Seaman OD Unavailable [phone] Encounter Details Date Type Department Care Team (Latest Contact Info) Description 01/09/2024 Travel Social History Tobacco Use Types Packs/Day Years Used Date Smoking Tobacco: Never Assessed PHQ-2 Answer Date Recorded PHQ-2 Score 0 01/09/2024 Adolescent Education Answer Date Record ed Getting School Help Needed Not on file 09/21 Sex and Gender Information Value Date Recorded Sex Assigned at Not on file 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
--- OUTSIDE RECORDS SUMMARY | 2024-11-12 14:14 | XMS_ITS | Encounter Summary ---
Author Organization [facility] [employer] [facility] [employer] Address [address] [place] [address] Care Team Providers Care Manager Environmental Services Name Role Phone Found, No Pcp Primary Care Provider Unavailab le Encounter Details Date Type Department Care Team (Late st Contact Info) Description 08/20/2020 Orders Only Initial Department [address] [place], [place] [address] Provider, [place] [address] Social History Tobacco Use Types Packs/Day Years [...] Procedure Name Priority Date/Time Associated Diagnosis Comments LABORATORY REPORT 08/20/2020 documented in this encounter Results * LABORATORY REPORT (08/20/2020) Interface Provider DUMMY/OTHER/AR documented in this encounter Visit Diagnoses Not on filedocumented in this encounter Care Teams Manager Environmental Services Relationship Specialty Start Date End Date Found, No PcpMD [address] [place] [address] PCP - General 10/18/18 documented as of this encounter
--- OUTSIDE RECORDS SUMMARY | 2024-11-12 14:14 | XMS_ITS | Clinical Summary ---
Author Organization [facility] Address [address], [place] [address] Care Team Providers Care Freight Air Brake Fitter Name Role Phone Found, No Pcp MD Primary Care Provider Unavailab le Source Comments You are receiving this document as you are listed as the primary care provider,follow-up provider, or the patient has been referred to you for consultation.This is in compliance with the Medicare and[facility] EHR Incentive Program,which states Providers who transition their patient to another setting of careor provider of care or refers their patient to another provider of care shouldprovide summary care record for each transition of care or referral. 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 10/25/2017 Other specific arthropathies , not elsewhere classified, multiple sites 05/25/2011 Overview (07/05/2017): Other specified arthropathy, multiple sites Immunizations Name Administration Dates Next Due Flu Vac (3+ yrs) 08/19/2013, 3,08/27/2010, 009,09/05/2008,09/06/2007,09/13/2006,07/2005,09/09/2003 Flu Vac Preserv Free (3+yrs) 08/27/2008 Influenza ([place] Only) (Flul aval Quad 0.5, 3+ yrs) 08/22/2016 Influenza V1G4-67 2009 Influenza IIV4 (Quadrivalent ) 0.5mL (91432) 08/24/2018,09/08/2017,09/11/2015, 014 Td 11/13/1996 Tdap 05/04/2012 Zoster [...] Comments Blood Pressure 128/77 10/28/2020 1:49 PM WINDOW CUTTER Pulse 69 10/28/2020 1:49 PM WINDOW CUTTER Temperature 36.4 C (97.5 F) 10/28/2020 1:49 PM WINDOW CUTTER Respiratory Rate 18 11/11/2015 3:07 PM WINDOW CUTTER Oxygen Saturation - - Inhaled Oxygen Concentration - - Weight 85.6 kg (188 lb 12.8 oz) 019 4:32 PM WINDOW CUTTER Height 182.9 cm (6') 03/26/2009 2:31 PM [...] age to complete this topic Care Teams Freight Air Brake Fitter Relationship Specialty Start Date End Date Found, No Pcp, [address] [facility] [place] [address] PCP - General 10/18/18
--- OUTSIDE RECORDS SUMMARY | 2024-11-12 14:14 | XMS_ITS | Encounter Summary ---
Author Organization [facility] Address [facility] 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 Patient to establish care at [facility] in May. Schedule tentative 3 month follow-up with me, pending evaluation at [facility]. Provided medical records contact. 2) Epiretinal membrane, [...] plan with the patient and family. Tami Seaman OD documented in this encounter Nursing Notes * [...] eye. No eye pain or headaches. CARLI Jeornimo 04/12/2024 10:02 AM documented in this encounter Plan of Treatment Not on file documented as of this encounter Procedures Procedure Name Priority Date/Time Associated Diagnosis Comments SENSORIMOTOR Routine 04/12/2024 10:29 AM CDT Alternating esotropia documented in this encounter Results * Sensorimotor (04/12/2024 10:29 AM CDT) Narrative Tami Seaman, OD - 04/12/2024 10:29 AM CDT Performed by: trish . Patient cooperation: Reliable [...] esotropia documented in this encounter Care Teams Swim Instructor Relationship Specialty Start Date End Date Sandy Matta MD [facility] [place] [address] PCP - General Family Medicine 09/18/23 Tami Seaman, OD [address] [place] [address] Optometry 09/18/23 Tami Seaman, OD [address] [place] [address] Assigned Surgical Provider 10/14/23 Guy Yost MD [address] [place] [address] Otolaryngology 01/22/24 documented as of this encounter
--- OUTSIDE RECORDS SUMMARY | 2024-11-12 14:14 | XMS_ITS | Encounter Summary ---
Author Organization [facility] Address [address] [place] [address] Care Team Providers Care Cdl Program Coordinator Name Role Phone Tami Seaman OD Unavailable Sandy Matta MD Primary Care Provider [phone] Encounter Details Date Type Department Care Team (Latest Contact Info) Description 10/13/2023 Travel Social History Tobacco Use Types Packs/Day Years Used Date Smoking Tobacco: Never Assessed PHQ-2 Answer Date Recorded PHQ-2 Score 0 10/13/2023 Adolescent Education Answer Date Record ed Getting School Help Needed Not on file 09/21 Sex and Gender Information Value Date Recorded Sex Assigned at Not on file 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
--- OUTSIDE RECORDS SUMMARY | 2024-11-12 14:14 | XMS_ITS | Encounter Summary ---
Author Organization [facility] Address [address] [place] [address] Care Team Providers Care Judicial Assistant Name Role Phone Tami Seaman OD Unavailable [phone] Sandy Matta MD Primary Care Provider [phone] Reason for Visit * Reason Onset Date Comments Appointment 09/21/2023 Encounter Details Date Type Department Care Team (Late st Contact Info) Description 09/21/2023 Telephone [facility] - [address] [address] Tami Seaman, OD [address] [place] [address] Appointment Social History Tobacco Use Types Packs/Day Years Used Date Smoking Tobacco: Never Assessed Adolescent Education Answer Date Record ed Getting School Help Needed Not on file 09/21 Sex and Gender Information Value Date Recorded Sex Assigned at Not on file Legal Sex Male 3:58 PM SERVICE INSPECTOR Gender Identity Not on file Sexual Orientation Not on file documented as of this encounter Miscellaneous Notes * Telephone Encounter - Juliet Kearns - 09/21/2023 12:58 PM SERVICE INSPECTOR Spoke with patient's spouse regarding rescheduling for sooner appointment that became available. Spouse declined scheduling as offered and will keep appointment as scheduled. Confirmed appointment dates and sent a letter and map. -Per Patient's Spouse ICE INSPECTOR documented in this encounter Plan of Treatment Not on file documented as of this encounter Visit Diagnoses Not on filedocumented in this encounter Care Teams Judicial Assistant Relationship Specialty Start Date End Date Sandy Matta MD [address] [place] [address] PCP - General Family Medicine 09/18/23 Tami Seaman OD [facility] [address] Optometry 09/18/23 documented as of this encounter
--- OUTSIDE RECORDS SUMMARY | 2024-11-12 14:14 | XMS_ITS | Encounter Summary ---
Author Organization [place] Address [address] [place] [address] Care Team Providers Care Oil Deliverer Name Role Phone JurgenTami OD Unavailable [phone] Sandy Matta MD Primary Care Provider [phone] Tami Seaman OD Unavailable [phone] Guy Yost MD Unavailable + [phone] Reason for Visit * Reason Onset Date Comments Patient Request 02/05/2024 Encounter Details Date Type Department Care Team (Late st Contact Info) Description 02/05/2024 Telephone [facility] [address] [address] Guy Yost MD [address] [place] [address] Patient Request Social History Tobacco Use Types Packs/Day Years Used Date Smoking Tobacco: Never Assessed PHQ-2 Answer Date Recorded PHQ-2 Score 0 01/09/2024 Adolescent Education Answer Date Record ed Getting School Help Needed Not on file 09/21 Sex and Gender Information Value Date Recorded Sex Assigned at Not on file Legal Sex Male 3:58 PM COMB CAPPER Gender Identity Not on file Sexual Orientation Not on file documented as of this encounter Miscellaneous Notes * Telephone Encounter - Sadie Pathak - 02/05/2024 9:22 AM CDT This encounter is being sent to inform the clinic that this patient has a referral from Sandy Matta for the diagnoses of 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 Based on the availability of our provider(s), we are unable to accommodate this request. Were all sites offered this patient? Yes Does scheduling algorithm request to schedule next available? Patient has been scheduled for the first available opening with Dr Yost on 10/29/24. We have informed the patient that the clinic will review their referral and reach out if a sooner appointment ismedically necessary. documented in this encounter Plan of Treatment Not on file documented as of this encounter Visit Diagnoses Not on filedocumented in this encounter Care Teams Oil Deliverer Relationship Specialty Start Date End Date Sandy Matta MD [address] [place] [address] PCP - General Family Medicine 09/18/23 Tami Seaman, OD [address] [place] [id number] Optometry 09/18/23 Tami Seaman, OD [address] [place] [address] 010065 Assigned Surgical Provider 10/14/23 Guy Yost MD [address] [place] [address] Otolaryngology 01/22/24 documented as of this encounter
--- OUTSIDE RECORDS SUMMARY | 2024-11-12 14:14 | XMS_ITS | Encounter Summary ---
Author Organization [facility] Address [address] [place] [address] Care Team Providers Care Pharmacy Care Coordinator Name Role Phone JurgenTami OD Unavailable [phone] Sandy Matta MD Primary Care Provider [phone] Tami Seaman OD Unavailable [phone] Guy Yost MD Unavailable + [phone] Encounter Details Date Type Department Care Team (Late st Contact Info) Description 07/17/2024 [facility] [place] Medical Advice [facility] [address] [place] [address] Elaina Cervantes MD [address] [place] [address] Social History Tobacco Use Types Packs/Day Years Used Date Smoking Tobacco: Never Assessed PHQ-2 Answer Date Recorded PHQ-2 Score 0 01/09/2024 Adolescent Education Answer Date Record ed Getting School Help Needed Not on file 09/21 Sex and Gender Information Value Date Recorded Sex Assigned at Not on file Legal Sex Male 3:58 PM RN TRANSITIONAL CARE Gender Identity Not on file Sexual Orientation Not on file documented as of this encounter Plan of Treatment Not on file documented as of this encounter Visit Diagnoses Not on filedocumented in this encounter Care Teams Pharmacy Care Coordinator Relationship Specialty Start Date End Date [place] [address] [place] [address] PCP - General Family Medicine 09/18/23 Tami Seaman, OD [address] [place], [place] [address]125 Optometry 09/18/23 Tami Seaman, OD [address] [place], [place] 919765 Assigned Surgical Provider 10/14/23 Guy Yost MD [address] [place], [place] 0148[address] Otolaryngology 01/22/24 documented as of this encounter
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
--- OUTSIDE RECORDS SUMMARY | 2024-11-12 14:15 | XMS_ITS | Encounter Summary ---
Author Organization [facility] Address [address] [place] [address] Care Team Providers Care Car Construction Superintendent Name Role Phone Found, No Pcp Primary Care Provider Unavailab le Reason for Visit * Reason Comments Follow-up Encounter Details Date Type Department Care Team (Late st Contact Info) Description 12/13/2018 4:30 PM FEED MILL SUPERVISOR Office Visit Rheumatology at [place] [address] [place] [address]. [place] [address] Ronak Mosley MD [address] [place] [phone] HLA-B27 positive arthropathy (Primary Dx) Social History Tobacco Use Types Packs/Day Years Used Date Smoking Tobacco: Former Smokeless Tobacco: Former Quit: 11/12/1985 Comments:Quit smoking: Sex and Gender Information Value Date Recorded Sex Assigned at Not on file Gender Identity Not on file Sexual Orientation Not on file documented as of this encounter Last Filed Vital Signs Vital Sign Reading Time Taken Comments Blood Pressure 117/74 12/13/2018 4:16 PM FEED MILL SUPERVISOR Pulse 66 12/13/2018 4:16 PM FEED MILL SUPERVISOR Temperature - - Respiratory Rate - - Oxygen Saturation - - Inhaled Oxygen Concentration - - Weight 83.9 kg (185 lb) 12/13/2018 4:16 PM FEED MILL SUPERVISOR Height - - Body Mass Index 25.09 03/26/2009 2:31 PM CDT documented in this encounter Progress Notes * Ronak Mosley MD - 12/13/2018 4:30 PM CST RHEUMATOLOGY CLINIC FOLLOW-UP VISIT SUBJECTIVE: Giovana Guillen returns for follow-up regarding HLA-B27 arthritis, iritis, mild plantar fasciitis, and left knee pain (I part patello-femoral). He has had a very good year since he last saw me, without any significant flares of joint pain and swelling, iritis, or plantar fasciitis. He continues on methotrexate 10 mg once weekly along with folic acid 1 mg daily and he tolerates these quite well. He is essentially asymptomatic, with little foot pain. He has not had an episode of iritis for years. Otherwise, no increased visible joint swelling, visible [...] S__ T__ MTP???s S__ T___ S__ T__ Loss of motion: none Pain on motion: none Misalignment / Deformity: very mild left hallux valgus Osteophytes: thumb IP joints, left first MTP Nodules: none Tender 28 Joint Count: 0 Swollen 28 Joint Count: 0 Pain, Pt Global, MDHAQ, and RAPID3 scores in Rapid-3 flowsheet Pain: 0 Patient Global: 0 MDHAQ: 0 Rapid3: 0 In all four limbs, joints otherwise without swelling, tenderness, warmth, erythema, loss of motion,pain on motion, misalignment, deformity or instability. Most recent pertinent laboratory studies; Lab Results Component Value Date/Time EXT RSLT - WBC 4.1 (L) 08/24/2018 EXT RSLT - RBC 4.36 01/24/2013 2242 Red Blood Cell Count 4.95 10/25/2017 1605 EXT RSLT - HGB 14.4 08/24/2018 Hematocrit 45.8 10/25/2017 1605 Mean Corpuscular Volume 92.5 10/25/2017 1605 RDW 14.2 10/25/2017 1605 EXT RSLT - PLATELET COUNT 177 08/24/2018 Lab Results Component Value Date/Time Alanine Aminotransferase 22 10/25/2017 1605 EXT RSLT - ALT 18 08/24/2018 Lab Results Component Value Date/Time Creatinine Serum 1.14 10/25/2017 1605 EXT RSLT - CREATININE 0.98 08/24/2018 IMPRESSIONS: 1. HLA-B27 arthropathy, in remission PLANS: After discussing current mutually agreed on goals for our therapeutic interventions, we mutually agreed to do the following; 1. Will cut methotrexate to 7.5 mg weekly on a trial basis, but he will put the dose back up to 10 mg weekly if he notices any return of foot pain or other musculoskeletal issues 2. Check CBC, ALT, and creatinine once every 3 months 3. 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 See me back in 1 year MILL SUPERVISOR documented in this encounter Miscellaneous Notes * Letter - Rnoak Mosley MD - 12/13/2018 12:00 PM CST December 13, 2018 [employer] Fax number [phone] RE: Giovana Guillen : 1955 To Whom It May Concern: Mr. Guillen is a gentleman whom I have treated for HLA-B27 arthritis for many years. His arthritis remains essentially in remission on methotrexate, at a very low dose of 10 mg orally once weekly. I saw him back for review today, December 13, 2018. He has no swollen or tender joints, loss of motion, pain with motion of his joints, misalignment, or any significant deformity. He is having no side effects from methotrexate or any of his other medications. He is in excellent physical and medical condition, and he is unimpaired from his medications and his arthritis. His prognosis remains excellent. Should you have any questions or concerns, please feel free to contact me. Yours sincerely, Ronak Mosley MD [facility] Department of Rheumatology CC: GIOVANA GUILLEN [address] [place] [address] CONFIRM #: [id number] MILL SUPERVISOR documented in this encounter Plan of Treatment Not on file documented as of this encounter Visit Diagnoses Diagnosis HLA-B27 positive arthropathy- Primary Other specified arthropathy, site unspecified documented in this encounter Care Teams Car Construction Superintendent Relationship Specialty Start Date End Date Found, No Pcp, [address] [facility] [place] [address] PCP - General 10/18/18 documented as of this encounter
--- OUTSIDE RECORDS SUMMARY | 2024-11-12 14:15 | XMS_ITS | Encounter Summary ---
Author Organization [facility] Address [address], [place] [address] Care Team Providers Care Gate Guard Name Role Phone Unavailable Primary Care Provider Unavailabl e Encounter Details Date Type Department Care Team (Late st Contact Info) Description 11/10/2016 Notes/Orders Rheumatology at [place] [address] [place] [address]. [place] [address] Ronak Mosley MD [address] [place] [phone] Social History Tobacco Use Types Packs/Day Years [...]
--- OUTSIDE RECORDS SUMMARY | 2024-11-12 14:15 | XMS_ITS | Encounter Summary ---
Author Organization [facility] Address [address] [address] Care Team Providers Care Tractor Technician Name Role Phone Found, No Pcp MD Primary Care Provider Unavailab le Reason for Visit * Reason Comments Refill Encounter Details Date Type Department Care Team (Late st Contact Info) Description 11/07/2019 Refill Rheumatology at [address] [place] [address] Ronak Mosley MD [address] [place] [phone] Refill Social History Tobacco Use Types Packs/Day Years Used Date Smoking Tobacco: Former Smokeless Tobacco: Former Quit: 11/12/1985 Comments:Quit smoking: Sex and Gender Information Value Date Recorded Sex Assigned at Not on file Gender Identity Not on file Sexual Orientation Not on file documented as of this encounter Nursing Notes * Flory Prabhakar RN - 11/07/2019 1:10 PM CST [facility] 10-31-2019 FV 10-29-2020 Per LV Cut methotrexate to 5 mg once weekly, Check CBC, ALT, and creatinine once every 4 months Patient had CBC, Creatinine, and ALT labs on 10-31-2019 and values were within refill range. Medication refill approved per protocol LERATOR OPERATOR documented in this encounter Plan of Treatment Not on file documented as of this encounter Visit Diagnoses Not on filedocumented in this encounter Care Teams Tractor Technician Relationship Specialty Start Date End Date Found, No Pcp, [address] [place] [address] PCP - General 10/18/18 documented as of this encounter
--- OUTSIDE RECORDS SUMMARY | 2024-11-12 14:15 | XMS_ITS | Encounter Summary ---
Author Organization [facility] Address [address] [place] [address] Care Team Providers Care Data Center Solutions Architect Name Role Phone Found, No Pcp Primary Care Provider Unavailab le Encounter Details Date Type Department Care Team (Late st Contact Info) Description 12/17/2018 Notes/Orders Rheumatology at [place] [address] [place] [address]. [place] [address] Ronak Mosley MD [address] [place] [phone] Social History Tobacco Use Types Packs/Day Years [...] on filedocumented in this encounter Care Teams Data Center Solutions Architect Relationship Specialty Start Date End Date Found, No Pcp, [address] [place] [address] PCP - General 10/18/18 documented as of this encounter
--- OUTSIDE RECORDS SUMMARY | 2024-11-12 14:15 | XMS_ITS | Encounter Summary ---
Author Organization [facility] Address [address] [place] [address] Care Team Providers Care Proposal Specialist Name Role Phone Needs Pcp, Assignment Primary Care Provider [phone]- [phone] Reason for Visit * Reason Comments Follow-up Encounter Details Date Type Department Care Team (Latest Contact Info) Description 10/25/2017 3:30 PM FOUNDER CEO & PRESIDENT Office Visit Rheumatology at [place] [address] [place] [address]. [place], [place] [id number] Ronak Mosley MD [address] [place] [address] [phone] HLA-B27 positive arthropathy (Primary Dx); halfway current use of immunosuppressive drug Social History Tobacco Use Types Packs/Day Years Used Date Smoking Tobacco: Former Smokeless Tobacco: Former Quit: 11/12/1985 Comments:Quit smoking: Sex and Gender Information Value Date Recorded Sex Assigned at Not on file Gender Identity Not on file Sexual Orientation Not on file documented as of this encounter Last Filed Vital Signs Vital Sign Reading Time Taken Comments Blood Pressure 135/74 10/25/2017 3:25 PM FOUNDER CEO & PRESIDENT Pulse 76 10/25/2017 3:25 PM FOUNDER CEO & PRESIDENT Temperature - - Respiratory Rate - - Oxygen Saturation - - Inhaled Oxygen Concentration - - Weight 84.8 kg (187 lb) 10/25/2017 3:25 PM FOUNDER CEO & PRESIDENT Height - - Body Mass Index 25.36 03/26/2009 2:31 PM CDT documented in this encounter Progress Notes * Ronak Mosley MD - 10/25/2017 3:30 PM CST RHEUMATOLOGY CLINIC FOLLOW-UP VISIT SUBJECTIVE: Vinh Guillen returns for follow-up regarding regarding HLA-B27 arthritis, iritis, mild plantar fasciitis, and left knee pain. He has had a very good year since he last saw me, without anysignificant flares of joint pain and swelling, iritis, or plantar fasciitis. He does have some ongoing mild left knee discomfort that in part is patello-femoral in origin, and it responding well to physical therapy. He continues on methotrexate 10 mg once weekly along with folic acid 1 mg daily andhe tolerates these quite well. Otherwise, no increased visible joint swelling, visible [...] in Rapid-3 flowsheet Pain: 0 Patient Global: 0.5 MDHAQ: 0 Rapid3: 0.5 In all four limbs, joints otherwise without swelling, tenderness, warmth, erythema, loss of motion,pain on motion, misalignment, deformity or instability. Most recent pertinent laboratory studies; Lab Results Component Value Date/Time EXT RSLT - WBC 4.5 08/10/2017 EXT RSLT - RBC 4.36 01/24/2013 2242 Red Blood Cell Count 4.85 11/09/2016 1638 EXT RSLT - HGB 14.5 08/10/2017 Hematocrit 44.7 11/09/2016 1638 Mean Corpuscular Volume 92.2 11/09/2016 1638 RDW 12.8 11/09/2016 1638 EXT RSLT - PLT COUNT 217 08/10/2017 Lab Results Component Value Date/Time Alanine Aminotransferase 19 11/09/2016 1638 EXT RSLT - ALT 17 08/10/2017 Lab Results Component Value Date/Time Creatinine Serum 1.00 11/09/2016 1638 EXT RSLT - CREATININE 1.04 08/10/2017 IMPRESSIONS: 1. HLA-B27 arthritis, with minimal if any inflammatory activity. He appears to be in remission PLANS: After discussing current mutually agreed on goals for our therapeutic interventions, we mutually agreed to do the following; 1. FAA letter dictated as to his excellent current health status 2. Continue methotrexate at current dose. 3. Check CBC, ALT, and creatinine once every 3 months 4. See me back in one year DER CEO & PRESIDENT documented in this encounter Miscellaneous Notes * Letter - Ronak Mosley MD - 10/25/2017 3:59 PM CST October 25, 2017 [employer] Fax No: [phone] RE: Mr. Vinh Guillen : 1955 To Whom It May Concern: Mr. Guillen is a gentleman who I have been treating for HLA B27 arthritis for several years. His arthritis remains very well controlled on methotrexate, at a low dose of 10 mg orally once weekly. I saw him for review today, October 25, 2017. He has no swollen or tender joints, loss of motion, pain with motion of his joints, misalignment, or significant deformity. His arthritis is essentially in remission on his current regimen. He is having no side effects of methotrexate or from any of his other medications. He is in excellent physical and medical condition, unimpaired from his medications or his arthritis. His prognosis remains excellent. Should you have any questions or concerns, please feel free to contact me. Yours sincerely, Ronak Mosley MD [facility] Department of Rheumatology CONFIRM #: [id number] DER CEO & PRESIDENT documented in this encounter Plan of Treatment Not on file documented as of this encounter Results * CBC - Complete Blood Count W/Diff (10/25/2017 4:05 PM FOUNDER CEO & PRESIDENT) White Blood Cell Count 5.7 3.8 - 11.0 k/cmm PN SOFT Red Blood Cell Count 4.95 4.20 - 5.90 m/cmm PN SOFT Hemoglobin 15.3 13.4 - 17.5 g/dL PN SOFT Hematocrit 45.8 39.0 - 51.0 % PN SOFT Mean Corpuscular Volume 92.5 80.0 - 100.0 fL PN SOFT RDW 14.2 11.0 - 15.0 % PN SOFT Platelet Count 203 140 - 450 k/cmm PN SOFT 10/25/2017 4:05 PM FOUNDER CEO & PRESIDENT 10/25/2017 4:05 PM FOUNDER CEO & PRESIDENT Narrative PN SOFT - 10/25/2017 4:12 PM FOUNDER CEO & PRESIDENT Performed at [facility], [address] [place] [address] CLIA number [id number] Ronak Mosley MD LAB_1 PN SOFT [address] [place] [address] * ALT - Alanine Aminotransferase (10/25/2017 4:05 PM FOUNDER CEO & PRESIDENT) Alanine Aminotransferase 22 9 - 55 U/L PN SOFT 10/25/2017 4:05 PM FOUNDER CEO & PRESIDENT 10/25/2017 4:05 PM FOUNDER CEO & PRESIDENT Narrative PN SOFT - 10/25/2017 4:25 PM FOUNDER CEO & PRESIDENT Performed at [facility], [address] [place] [address] CLIA number [id number] Ronak Mosley MD LAB_1 Performing Organization Address [facility] Co de Phone Number PN SOFT [address] [place] [address] * CREAT - Creatinine (10/25/2017 4:05 PM FOUNDER CEO & PRESIDENT) Creatinine Serum 1.14 0.73 - 1.18 mg/dL PN SOFT Est GFR Am >60 >60 mL/min/1.7 3m2 PN SOFT Est GFR Non-Afr Am >60 >60 mL/min/1.7 3m2 PN SOFT Comment: Normal>60, moderate decrease 30 - 59, severe decrease 15 - 29, renal failure <15 mL/min/1.73 m2 NOTE: Choose the eGFR result above appropriate for the race of the patient. 10/25/2017 4:05 PM FOUNDER CEO & PRESIDENT 10/25/2017 4:05 PM FOUNDER CEO & PRESIDENT Narrative PN SOFT - 10/25/2017 4:25 PM FOUNDER CEO & PRESIDENT Performed at [facility], [address] [place] [address] CLIA number [id number] Ronak Mosley MD LAB_1 Performing Organization Address [facility] de Phone Number PN SOFT [address] [place] [address] documented in this encounter Visit Diagnoses Diagnosis HLA-B27 positive arthropathy- Primary Other specified arthropathy, site unspecified terminal operations supervisor current use of immunosuppressive drug HLA-B27 positive arthropathy Other specified arthropathy, site unspecified halfway current use of immunosuppressive drug documented in this encounter Care Teams Proposal Specialist Relationship Specialty Start Date End Date Needs Pcp, [place] [address] PCP - General 07/10/17 10/17/18 documented as of this encounter
--- OUTSIDE RECORDS SUMMARY | 2024-11-12 14:15 | XMS_ITS | Encounter Summary ---
Author Organization [facility] Address [address] [address] Care Team Providers Care Hydraulic Lift Driver Name Role Phone Found, No Pcp MD Primary Care Provider Unavailab le Reason for Visit * Reason Comments Refill Encounter Details Date Type Department Care Team (Late st Contact Info) Description 12/30/2018 Refill Rheumatology at [address] [place] [address] Ronak Mosley MD [address] [place] [phone] Refill Social History Tobacco Use Types Packs/Day Years Used Date Smoking Tobacco: Former Smokeless Tobacco: Former Quit: 11/12/1985 Comments:Quit smoking: Sex and Gender Information Value Date Recorded Sex Assigned at Not on file Gender Identity Not on file Sexual Orientation Not on file documented as of this encounter Nursing Notes * Jyothi Herron RN - 12/31/2018 11:39 AM CST Lv: 12/13/18 FV: 10/31/19 Renewed medication per medication refill protocol. ICAL ENGINEERING TEACHER documented in this encounter Plan of Treatment Not on file documented as of this encounter Visit Diagnoses Not on filedocumented in this encounter Care Teams Hydraulic Lift Driver Relationship Specialty Start Date End Date Found, No Pcp, [address] [place] [address] PCP - General 10/18/18 documented as of this encounter
--- OUTSIDE RECORDS SUMMARY | 2024-11-12 14:15 | XMS_ITS | Encounter Summary ---
Author Organization [facility] Address [address], [place] [address] Care Team Providers Care Crane Oiler Name Role Phone Unavailable Primary Care Provider Unavailabl e Encounter Details Date Type Department Care Team (Late st Contact Info) Description 11/09/2016 4:15 PM DROPPER TANK STORAGE Lab Visit [place] [address] Laboratory [facility] [place] [address] HLA B27 (HLA B27 positive); High risk medication use Social History Tobacco Use Types Packs/Day Years [...] Procedure Name Priority Date/Time Associated Diagnosis Comments CREATININE / GFR Routine 11/09/2016 4:38 PM DROPPER TANK STORAGE HLA B27 (HLA B27 positive) High risk medication use COMPLETE BLOOD COUNT-W/DIFF Routine 11/09/2016 4:38 PM DROPPER TANK STORAGE HLA B27 (HLA B27 positive) High risk medication use DIFFERENTIAL Routine 11/09/2016 4:38 PM DROPPER TANK STORAGE ALT (SGPT) Routine 11/09/2016 4:38 PM DROPPER TANK STORAGE HLA B27 (HLA B27 positive) High risk medication use documented in this encounter Results * Differential (11/09/2016 4:38 PM DROPPER TANK STORAGE) Absolute Neutrophils 3.3 1.8 - 8.0 k/cmm PN SOFT Absolute Lymphocytes 1.1 1.1 - 4.0 k/cmm PN SOFT Absolute Monocytes 0.6 0.2 - 0.8 k/cmm PN SOFT Absolute Eosinophils 0.1 0.0 - 0.5 k/cmm PN SOFT Absolute Basophils 0.1 0.0 - 0.2 k/cmm PN SOFT Immature Granulocytes 0.2 0.0 - 0.5 % PN SOFT 11/09/2016 4:38 PM DROPPER TANK STORAGE 11/09/2016 4:38 PM DROPPER TANK STORAGE Narrative PN SOFT - 11/09/2016 4:42 PM DROPPER TANK STORAGE [place] [address] CLIA number [id number] Ronak Mosley MD LAB_1 Performing Organization Address [facility] de Phone Number PN SOFT [address] [place] [address] * CREAT - Creatinine (11/09/2016 4:38 PM DROPPER TANK STORAGE) Creatinine Serum 1.00 0.73 - 1.18 mg/dL PN SOFT Est GFR Am >60 >60 mL/min/1.7 3m2 PN SOFT Est GFR Non-Afr Am >60 >60 mL/min/1.7 3m2 PN SOFT Comment: Normal>60, moderate decrease 30 - 59, severe decrease 15 - 29, renal failure <15 mL/min/1.73 m2 NOTE: Choose the eGFR result above appropriate for the race of the patient. 11/09/2016 4:38 PM DROPPER TANK STORAGE 11/09/2016 4:38 PM DROPPER TANK STORAGE Narrative PN SOFT - 11/09/2016 4:56 PM DROPPER TANK STORAGE Performed at [address] [address] CLIA number [id number] Ronak Mosley MD LAB_1 Performing Organization Address [facility]/ZIP Co de Phone Number PN SOFT [address] [place] [address] * ALT - Alanine Aminotransferase (11/09/2016 4:38 PM DROPPER TANK STORAGE) Alanine Aminotransferase 19 9 - 55 U/L PN SOFT 11/09/2016 4:38 PM DROPPER TANK STORAGE 11/09/2016 4:38 PM DROPPER TANK STORAGE Narrative PN SOFT - 11/09/2016 4:56 PM DROPPER TANK STORAGE Performed at [facility], [address] [place] [address] CLIA number [id number] Ronak Mosley MD LAB_1 Performing Organization Address [facility] de Phone Number PN SOFT [address] [place] [address] * CBC - Complete Blood Count W/Diff (11/09/2016 4:38 PM DROPPER TANK STORAGE) White Blood Cell Count 5.2 3.8 - 11.0 k/cmm PN SOFT Red Blood Cell Count 4.85 4.20 - 5.90 m/cmm PN SOFT Hemoglobin 15.0 13.4 - 17.5 g/dL PN SOFT Hematocrit 44.7 39.0 - 51.0 % PN SOFT Mean Corpuscular Volume 92.2 80.0 - 100.0 fL PN SOFT RDW 12.8 11.0 - 15.0 % PN SOFT Platelet Count 236 140 - 450 k/cmm PN SOFT 11/09/2016 4:38 PM DROPPER TANK STORAGE 11/09/2016 4:38 PM DROPPER TANK STORAGE Narrative PN SOFT - 11/09/2016 4:42 PM DROPPER TANK STORAGE Performed at [facility], [address] [place] [address] CLIA number [id number] Ronak Mosley MD LAB_1 Performing Organization Address [facility] de Phone Number SOFT [address] [place] [address] documented in this encounter Visit Diagnoses Diagnosis 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
--- OUTSIDE RECORDS SUMMARY | 2024-11-12 14:15 | XMS_ITS | Encounter Summary ---
Author Organization [facility] Address [address], [place] [address] Care Team Providers Care Continuum Of Care Manager Name Role Phone Needs Pcp, Assignment Primary Care Provider [phone]- [phone] Encounter Details Date Type Department Care Team (Latest Contact Info) Description 10/25/2017 4:00 PM TRACTOR MECHANIC Lab Visit [place] [address] [place] [address]. [place] [address] HLA-B27 positive arthropathy; custodial current use of immunosuppressive drug Social History [...] Associated Diagnosis Comments CREATININE / GFR Routine 10/25/2017 4:05 PM TRACTOR MECHANIC HLA-B27 positive arthropathy custodial current use of immunosuppressive drug COMPLETE BLOOD COUNT-W/DIFF Routine 10/25/2017 4:05 PM TRACTOR MECHANIC HLA-B27 positive arthropathy custodial current use of immunosuppressive drug DIFFERENTIAL Routine 10/25/2017 4:05 PM TRACTOR MECHANIC ALT (SGPT) Routine 10/25/2017 4:05 PM TRACTOR MECHANIC HLA-B27 positive arthropathy custodial current use of immunosuppressive drug documented in this encounter Results * Differential (10/25/2017 4:05 PM TRACTOR MECHANIC) Absolute Neutrophils 3.8 1.8 - 8.0 k/cmm PN SOFT Absolute Lymphocytes 1.3 1.1 - 4.0 k/cmm PN SOFT Absolute Monocytes 0.5 0.2 - 0.8 k/cmm PN SOFT Absolute Eosinophils 0.2 0.0 - 0.5 k/cmm PN SOFT Absolute Basophils 0.1 0.0 - 0.2 k/cmm PN SOFT Immature Granulocytes 0.3 0.0 - 0.5 % PN SOFT 10/25/2017 4:05 PM TRACTOR MECHANIC 10/25/2017 4:05 PM TRACTOR MECHANIC Narrative PN SOFT - 10/25/2017 4:13 PM TRACTOR MECHANIC Performed at [facility], [address] [place] [address] CLIA number [id number] Ronak Mosley MD LAB_1 PN SOFT [address] [place] [address] * CBC - Complete Blood Count W/Diff (10/25/2017 4:05 PM TRACTOR MECHANIC) White Blood Cell Count 5.7 3.8 - [...] 450 k/cmm PN SOFT 10/25/2017 4:05 PM TRACTOR MECHANIC 10/25/2017 4:05 PM TRACTOR MECHANIC Narrative PN SOFT - 10/25/2017 4:12 PM TRACTOR MECHANIC Performed at [facility], [address] [place] [address] CLIA number [id number] Ronak Mosley MD LAB_1 Performing Organization Address [facility] Co de Phone Number PN SOFT [address] [place] [address] * ALT - Alanine Aminotransferase (10/25/2017 4:05 PM TRACTOR MECHANIC) Alanine Aminotransferase 22 9 - 55 U/L PN SOFT 10/25/2017 4:05 PM TRACTOR MECHANIC 10/25/2017 4:05 PM TRACTOR MECHANIC Narrative PN SOFT - 10/25/2017 4:25 PM TRACTOR MECHANIC Performed at [place] [id number] CLIA number [id number] Ronak Mosley MD LAB_1 Performing Organization Address [facility] de Phone Number PN SOFT [address] [place] [address] * CREAT - Creatinine (10/25/2017 4:05 PM TRACTOR MECHANIC) Creatinine Serum 1.14 0.73 - 1.18 mg/dL PN SOFT Est GFR Am >60 >60 mL/min/1.7 3m2 PN SOFT Est GFR Non-Afr Am >60 >60 mL/min/1.7 3m2 PN SOFT Comment: Normal>60, moderate decrease 30 - 59, severe decrease 15 - 29, renal failure <15 mL/min/1.73 m2 NOTE: Choose the eGFR result above appropriate for the race of the patient. 10/25/2017 4:05 PM TRACTOR MECHANIC 10/25/2017 4:05 PM TRACTOR MECHANIC Narrative PN SOFT - 10/25/2017 4:25 PM TRACTOR MECHANIC Performed at [facility], [address] [place] [address] CLIA number [id number] Ronak Mosley MD LAB_1 Performing Organization Address [facility] Co de Phone Number PN SOFT [address] [place] [address] documented in this encounter Visit Diagnoses Diagnosis HLA-B27 positive arthropathy Other specified arthropathy, site unspecified rat exterminator current use of immunosuppressive drug documented in this encounter Care Teams Continuum Of Care Manager Relationship Specialty Start Date End Date Needs Pcp, [place] [address] PCP - General 07/10/17 10/17/18 documented as of this encounter
--- OUTSIDE RECORDS SUMMARY | 2024-11-12 14:15 | XMS_ITS | Encounter Summary ---
Author Organization [employer] Address [address], [place] [address] Care Team Providers Care Manager Social Work Name Role Phone Needs Pcp, Assignment Primary Care Provider [phone] [phone] Reason for Visit * Reason Onset Date Comments Refill 10/06/2017 Encounter Details Date Type Department Care Team (Late st Contact Info) Description 10/06/2017 Refill Rheumatology at [place] [address] [place] [address]. [place] [address] Ronak Mosley MD [address] [place] [phone] Refill Social History Tobacco Use Types Packs/Day Years Used Date Smoking Tobacco: Former Smokeless Tobacco: Former Quit: 11/12/1985 Comments:Quit smoking: Sex and Gender Information Value Date Recorded Sex Assigned at Not on file Gender Identity Not on file Sexual Orientation Not on file documented as of this encounter Nursing Notes * Ronak Mosley MD - 10/06/2017 4:52 PM CST Script sent RACTIVE GRAPHIC DESIGNER * Jyothi Herron RN - 10/06/2017 11:12 AM CST Further assistance needed to complete refill request Reason: RN Reviewed--Need signed order in [place] for pended medication. Patient requesting a 90-day supply. Please approve refill if appropriate. Patient has an appointment on 10/25/17. Next Steps: Review pended order for accuracy. Sign. Close encounter. Requested Prescriptions Pending Prescriptions Disp Refills ??? Methotrexate, Anti-Rheumatic, (RHEUMATREX) 2.5 MG tablet 48 Tab 0 Sig: Take 4 Tabs by mouth once every week. Hemoglobin (g/dL) Date Value 11/09/2016 15.0 EXT RSLT - HGB (g/dL) Date Value 08/10/2017 14.5 02/08/2017 15.2 07/15/2016 14.7 EXT RSLT - WBC (thou/cu mm) Date Value 08/10/2017 4.5 02/08/2017 5.3 07/15/2016 4.0 (L) White Blood Cell Count (k/cmm) Date Value 11/09/2016 5.2 Lab Results Component Value Date/Time Creatinine Serum 1.00 11/09/2016 1638 EXT RSLT - CREATININE 1.04 08/10/2017 Alanine Aminotransferase (U/L) Date Value 11/09/2016 19 EXT RSLT - ALT (IU/L) Date Value 08/10/2017 17 RACTIVE GRAPHIC DESIGNER * Lesley Granados - 10/06/2017 11:01 AM CST Last visit: 11/09/16 Future visit: 10/25/17 RACTIVE GRAPHIC DESIGNER documented in this encounter Plan of Treatment Not on file documented as of this encounter Visit Diagnoses Not on filedocumented in this encounter Care Teams Manager Social Work Relationship Specialty Start Date End Date Needs Pcp, [place] [address] PCP - General 07/10/17 10/17/18 documented as of this encounter
--- OUTSIDE RECORDS SUMMARY | 2024-11-12 14:15 | XMS_ITS | Encounter Summary ---
Author Organization [facility] Address [address], [place] [address] Care Team Providers Care Flavor Tank Tender Name Role Phone Found, No Pcp Primary Care Provider Unavailab le Encounter Details Date Type Department Care Team (Late st Contact Info) Description 10/31/2019 5:00 PM LANDSCAPING SUPERVISOR Lab Visit [place] [address] Laboratory [facility] [place] [address] HLA-B27 positive arthropathy; Encounter for long-term (current) use of other medications Social History Tobacco Use Types Packs/Day Years [...] Procedure Name Priority Date/Time Associated Diagnosis Comments CBC AND DIFFERENTIAL PANEL Routine 10/31/2019 5:04 PM LANDSCAPING SUPERVISOR HLA-B27 positive arthropathy Encounter for long-term (current) use of other medications CREATININE / GFR Routine 10/31/2019 5:04 PM LANDSCAPING SUPERVISOR HLA-B27 positive arthropathy Encounter for long-term (current) use of other medications COMPLETE BLOOD COUNT-W/DIFF Routine 10/31/2019 5:04 PM LANDSCAPING SUPERVISOR HLA-B27 positive arthropathy Encounter for long-term (current) use of other medications ALT (SGPT) Routine 10/31/2019 5:04 PM [facility] HLA-B27 positive arthropathy Encounter for long-term (current) use of other medications documented in this encounter Results * Complete Blood Count-W/Diff (10/31/2019 5:04 PM [facility]) WBC 5.6 3.5 - 10.5 x10(9)/L 10/31/2019 5:18 PM [place] [address] LABORATORY RBC 4.35 4.32 - 5.72 x10(12)/L 10/31/2019 5:18 PM [place] [address] [facility]ORY Hemoglobin 14.1 13.5 - 17.5 g/dL 10/31/2019 5:18 PM [place] [address] [facility] HCT 41.5 38.8 - 50.0 % 10/31/2019 5:18 PM [place] [address] [facility] MCV 95.4 80.0 - 100.0 fL 10/31/2019 5:18 PM [place] [address] [facility] MCH 32.4 27.6 - 33.3 pg 10/31/2019 5:18 PM [place] [address] [facility] MCHC 34.0 31.5 - 35.2 g/dL 10/31/2019 5:18 PM [place] [address] [facility] RDW 12.4 11.9 - 15.5 % 10/31/2019 5:18 PM [place] [address] [facility] Platelets 192 150 - 450 x10(9)/L 10/31/2019 5:18 PM [place] [address] [facility] Automated NRBC 0 <=0 /100 WBC 10/31/2019 5:18 PM [place] [address] [facility] Neutrophil Absolute 3.4 1.7 - 7.0 10(9)/L 10/31/2019 5:18 PM [place] [address] [facility] Lymphocyte Absolute 1.4 1.0 - 4.8 10(9)/L 10/31/2019 5:18 PM [place] [address] [facility] Monocyte Absolute 0.5 0.2 - 0.9 10(9)/L 10/31/2019 5:18 PM [place] [address] [facility] Eosinophil Absolute 0.2 0.0 - 0.5 10(9)/L 10/31/2019 5:18 PM [place] [address] [facility] Basophil Absolute 0.1 0.0 - 0.3 10(9)/L 10/31/2019 5:18 PM [place] [address] [facility] Immature Granulocyte % 0.2 0.0 - 0.5 % 10/31/2019 5:18 PM [place] [address] [facility] Blood Venipuncture / Unknown 10/31/2019 5:04 PM LANDSCAPING SUPERVISOR 10/31/2019 5:08 PM LANDSCAPING SUPERVISOR Ronak Mosley MD LAB_1 Performing Organization Address [facility] de Phone Number [place] [address] [place] [phone], [facility] [phone] * ALT - Alanine Aminotransferase - standing Q3 months (10/31/2019 5:04 PM LANDSCAPING SUPERVISOR) ALT (SGPT) 20 0 - 55 U/L 10/31/2019 5:34 PM [place] [address] [facility] Blood Venipuncture / Unknown 10/31/2019 5:04 PM LANDSCAPING SUPERVISOR 10/31/2019 5:08 PM LANDSCAPING SUPERVISOR Ronak Mosley MD LAB_1 Performing Organization Address [facility] de Phone Number [place] [address] [place] [phone], [facility] [phone] * CREAT - Creatinine - standing Q3 months (10/31/2019 5:04 PM LANDSCAPING SUPERVISOR) Creatinine 0.97 0.73 - 1.18 mg/dL 10/31/2019 5:34 PM [place] [address] [facility] GFR, Estimated >60 >60 mL/min/1.7 3m2 10/31/2019 5:34 PM [place] [address] [facility] GFR, Est If >60 >60 mL/min/1.7 3m2 10/31/2019 5:34 PM [place] [address] [facility] Blood Venipuncture / Unknown 10/31/2019 5:04 PM LANDSCAPING SUPERVISOR 10/31/2019 5:08 PM LANDSCAPING SUPERVISOR Ronak Mosley MD LAB_1 [facility] [address] LAB[address]AT[address] [place] [address], [facility] [phone] documented in this encounter Visit Diagnoses Diagnosis HLA-B27 positive arthropathy Other specified arthropathy, site unspecified Encounter for long-term (current) use of other medications documented in this encounter Care Teams Flavor Tank Tender Relationship Specialty Start Date End Date Found, No Pcp, [address] [place] [address] PCP - General 10/18/18 documented as of this encounter
--- OUTSIDE RECORDS SUMMARY | 2024-11-12 14:15 | XMS_ITS | Encounter Summary ---
Author Organization [employer] Address [address] [place] [address] Care Team Providers Care Dark Room Attendant Name Role Phone Found, No Pcp Primary Care Provider Unavailab le Encounter Details Date Type Department Care Team (Late st Contact Info) Description 11/30/2019 Orders Only Initial Department [address] [place], [place] [id number] Provider, [place] [address] Social History Tobacco Use Types Packs/Day Years [...] Priority Date/Time Associated Diagnosis Comments LABORATORY REPORT 11/30/2019 documented in this encounter Results * LABORATORY REPORT (11/30/2019) Interface Provider DUMMY/OTHER/AR documented in this encounter Visit Diagnoses Not on filedocumented in this encounter Care Teams Dark Room Attendant Relationship Specialty Start Date End Date Found, No PcpMD [address] [place] [address] PCP - General 10/18/18 documented as of this encounter
--- OUTSIDE RECORDS SUMMARY | 2024-11-12 14:15 | XMS_ITS | Encounter Summary ---
Author Organization [employer] Address [address], [place] [address] Care Team Providers Care Retail Team Leader Name Role Phone Found, No Pcp Primary Care Provider Unavailab le Reason for Visit * Reason Comments Refill Encounter Details Date Type Department Care Team (Late st Contact Info) Description 12/18/2019 Refill Rheumatology at [address] [place] [address] Ronak Mosley MD [address] [place] [address] [phone] Refill Social History Tobacco Use Types Packs/Day Years Used Date Smoking Tobacco: Former Smokeless Tobacco: Former Quit: 11/12/1985 Comments:Quit smoking: Sex and Gender Information Value Date Recorded Sex Assigned at Not on file Gender Identity Not on file Sexual Orientation Not on file documented as of this encounter Nursing Notes * Flory Prabhakar RN - 12/18/2019 12:06 PM CST 10-31-2019 F[facility] 10-29-2020 Medication refill approved per protocol ET LIGHT MECHANIC documented in this encounter Plan of Treatment Not on file documented as of this encounter Visit Diagnoses Not on filedocumented in this encounter Care Teams Retail Team Leader Relationship Specialty Start Date End Date Found, No Pcp, [address] [place] [address] PCP - General 10/18/18 documented as of this encounter
--- OUTSIDE RECORDS SUMMARY | 2024-11-12 14:15 | XMS_ITS | Encounter Summary ---
Author Organization [employer] Address [address], [place] [address] Care Team Providers Care Computer Project Manager Name Role Phone Unavailable Primary Care Provider Unavailabl e Reason for Visit * Reason Onset Date Comments Refill 11/11/2016 Encounter Details Date Type Department Care Team (Late st Contact Info) Description 11/11/2016 Refill Rheumatology at [address] [place] [address] Ronak Mosley MD [address] [place] [phone] Refill Social History Tobacco Use Types Packs/Day Years Used Date Smoking Tobacco: Former Smokeless Tobacco: Former Quit: 11/12/1985 Comments:Quit smoking: Sex and Gender Information Value Date Recorded Sex Assigned at Not on file Gender Identity Not on file Sexual Orientation Not on file documented as of this encounter Nursing Notes * Thania Muir RN - 11/11/2016 12:06 PM CST Renewed medication per medication refill protocol. Requested Prescriptions Pending Prescriptions Disp Refills ??? folic acid 1 MG tablet 90 Tab 3 Sig: Take 1 Tab by mouth daily. ER APPRENTICE * Alexis Hein - 11/11/2016 10:51 AM CST Last appt: 11/09/16, Next: 11/08/17 ER APPRENTICE documented in this encounter Plan of Treatment Not on file documented as of this encounter Visit Diagnoses Not on filedocumented in this encounter
--- OUTSIDE RECORDS SUMMARY | 2024-11-12 14:15 | XMS_ITS | Encounter Summary ---
Author Organization [employer] Address [address] [place] [address] Care Team Providers Care Patient Companion Name Role Phone Found, No Pcp Primary Care Provider Unavailab le Reason for Visit * Reason Comments Follow-up Encounter Details Date Type Department Care Team (Late st Contact Info) Description 10/31/2019 4:30 PM LEATHER WHITENER Office Visit Rheumatology at [place] [address] [place] [address]. [place] [address] Ronak Mosley MD [address] [place] [address] [phone] HLA-B27 positive arthropathy (Primary Dx); Encounter for long-term (current) use of other [...] Sign Reading Time Taken Comments Blood Pressure 123/74 10/31/2019 4:32 PM LEATHER WHITENER Pulse 70 10/31/2019 4:32 PM LEATHER WHITENER Temperature - - Respiratory Rate - - Oxygen Saturation - - Inhaled Oxygen Concentration - - Weight 85.6 kg (188 lb 12.8 oz) 10/31/2019 4:32 PM LEATHER WHITENER Height - - Body Mass Index - - documented in this encounter Patient Instructions * Patient Instructions* Ronak Mosley MD - 10/31/2019 4:30 PM LEATHER WHITENER Rheumatology Nurse Line [phone] Laboratory monitoring blood tests today and again on or around November 15; 2019; March 15, 2020; Jul 16, 2020 HER WHITENER documented in this encounter Progress Notes * Ronak Mosley MD - 10/31/2019 4:30 PM CST RHEUMATOLOGY CLINIC FOLLOW-UP VISIT SUBJECTIVE: Vinh Guillen returns for follow-up 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 At his last visit 12/13/2018, we cut hismethotrexate dose to 7.5 mg once weekly. He has had two episodes of mild iritis over the past year.He was able to control them quickly with topical methylprednisolone eyedrops. He would like to comeoff of methotrexate altogether. He notices that he gets low back pain after he has done a lot of activity such as snow shoveling. Interestingly both iritis episodes have occurred soon after heavy activity. He has had no pain or swelling in any specific joints or his achilles tendons over the past year. Otherwise, no increased visible joint swelling, visible [...] Pain on motion: none Misalignment / Deformity: none Osteophytes: none Nodules: none Tender 28 Joint Count: 0 Swollen 28 Joint Count: 0 Pain, Pt Global, MDHAQ, and RAPID3 scores in Rapid-3 flowsheet Pain: 1.5 Patient Global: 1 MDHAQ: 0 Rapid3: 2.5 In all four limbs, joints otherwise without swelling, tenderness, warmth, erythema, loss of motion,pain on motion, misalignment, deformity or instability. Most recent pertinent laboratory studies; Lab Results Component Value Date EXT RSLT - WBC 4.1 (L) 07/05/2019 Red Blood Cell Count 4.95 10/25/2017 EXT RSLT - HGB 13.6 07/05/2019 Hematocrit 45.8 10/25/2017 Mean Corpuscular Volume 92.5 10/25/2017 RDW 14.2 10/25/2017 EXT RSLT - PLATELET COUNT 217 07/05/2019 Lab Results Component Value Date EXT RSLT - ALT 17 07/05/2019 Lab Results Component Value Date EXT RSLT - CREATININE 0.80 07/05/2019 IMPRESSIONS: 1. HLA-B27 arthritis, with low inflammatory activity. We discussed whether or not his recurrent iritis is linked to cutting his methotrexate dose. I think it may be, but I also acknowledged that it is possible this is not true. He would like to cut the methotrexate dose further. Given that his iritis episodes have been mild and easy to control, I think a trial of cutting his methotrexate dose further is not unduly risky PLANS: After discussing current mutually agreed on goals for our therapeutic interventions, we mutually agreed to do the following; 1. Cut methotrexate to 5 mg once weekly 2. Check CBC, ALT, and creatinine once every 4 months 3. I will dictate an updated letter regarding his status for the [facility], mail to his home address 4. See me back in one year HER WHITENER documented in this encounter Plan of Treatment Not on file documented as of this encounter Visit Diagnoses Diagnosis HLA-B27 positive arthropathy- Primary Other specified arthropathy, site unspecified Encounter for long-term (current) use of other medications documented in this encounter Care Teams Patient Companion Relationship Specialty Start Date End Date Found, No Pcp, [address] [place] [address] PCP - General 10/18/18 documented as of this encounter
--- OUTSIDE RECORDS SUMMARY | 2024-11-12 14:16 | XMS_ITS | Encounter Summary ---
Author Organization [email or web address] Address [address] [address] Care Team Providers Care Family Nurse Practitioner Name Role Phone Unavailable Primary Care Provider Unavailabl e Reason for Visit * Reason Comments Letter Encounter Details Date Type Department Care Team (Late st Contact Info) Description 2011 Telephone Rheumatology at [address] [place] [address] Radha Wright LPN Letter Social History Tobacco Use Types Packs/Day Years Used Date Smoking Tobacco: Never Assessed Sex and Gender Information Value Date Recorded Sex Assigned at Not on file Gender Identity Not on file Sexual Orientation Not on file documented as of this encounter Nursing Notes * Ronak Mosley MD - 11/21/2011 4:49 PM CST Letter is dictated, please look for it. RRELATED SPECIAL EDUCATION TEACHER * Radha Wright LPN - 2011 10:08 AM CST Pt needs a letter for flight certificate, stating medications he is taking, dosage, and status report regarding ankylosing spondylitis. Please mail letter to home address. ( verified address ) documented in this encounter Plan of Treatment Not on file documented as of this encounter Visit Diagnoses Not on filedocumented in this encounter
--- OUTSIDE RECORDS SUMMARY | 2024-11-12 14:16 | XMS_ITS | Encounter Summary ---
Author Organization [email or web address] Address [address] [address] Care Team Providers Care Capital Campaign Fundraiser Name Role Phone Unavailable Primary Care Provider Unavailabl e Reason for Visit * Reason Comments Letter Encounter Details Date Type Department Care Team (Late st Contact Info) Description 12/26/2013 Telephone Rheumatology at [place] [address] [place] [address]. [place] [address] Ronka Mosley MD [address] [place] [address] [phone] Letter Social History Tobacco Use Types Packs/Day Years Used Date Smoking Tobacco: Never Assessed Sex and Gender Information Value Date Recorded Sex Assigned at Not on file Gender Identity Not on file Sexual Orientation Not on file documented as of this encounter Nursing Notes * Artur Navarrete - 01/02/2014 8:54 AM CST Letter faxed and sent to Patient on 12-30-13, Patient notified. * Ronak Mosley MD - 12/30/2013 4:36 PM CST This letter is now dictated, please look for it. ERNMAKER WOOD * Cristina Nichols LPN - 12/26/2013 4:19 PM CST Patient would like an updated letter to be faxed to Carmelo Colon MD Fax No: Last letter dictated was dated 11/16/2012 documented in this encounter Plan of Treatment Not on file documented as of this encounter Visit Diagnoses Not on filedocumented in this encounter
--- OUTSIDE RECORDS SUMMARY | 2024-11-12 14:16 | XMS_ITS | Encounter Summary ---
Author Organization [employer] Address [address], [place] [address] Care Team Providers Care Clothing Cutter Name Role Phone Unavailable Primary Care Provider Unavailabl e Reason for Visit * Reason Comments Refill Encounter Details Date Type Department Care Team (Late st Contact Info) Description 07/23/2013 Refill Rheumatology at [address] [place] [address] Kae Callahan PA-C [address] [place] [address] [phone] Refill Social History Tobacco Use Types Packs/Day Years Used Date Smoking Tobacco: Never Assessed Sex and Gender Information Value Date Recorded Sex Assigned at Not on file Gender Identity Not on file Sexual Orientation Not on file documented as of this encounter Nursing Notes * Fidencio Gordon V - 07/23/2013 9:00 AM CDT Last visit: 12-26-12 Follow-up: 10-25-13 documented in this encounter Plan of Treatment Not on file documented as of this encounter Visit Diagnoses Not on filedocumented in this encounter
--- OUTSIDE RECORDS SUMMARY | 2024-11-12 14:16 | XMS_ITS | Encounter Summary ---
Author Organization [employer] Address [address] [address] Care Team Providers Care Foundry Melt Supervisor Name Role Phone Unavailable Primary Care Provider Unavailabl e Reason for Visit * Reason Comments Refill Encounter Details Date Type Department Care Team (Late st Contact Info) Description 11/20/2013 Refill Rheumatology at [place] [address] [place] [address]. [place] [address] Laura Hedrick MD [address] [place] [address] [phone] Refill Social History Tobacco Use Types Packs/Day Years Used Date Smoking Tobacco: Never Assessed Sex and Gender Information Value Date Recorded Sex Assigned at Not on file Gender Identity Not on file Sexual Orientation Not on file documented as of this encounter Nursing Notes * Caroline Calloway V - 11/20/2013 3:47 PM CST Ref. Range 07/19/2013 00:00 EXT RSLT - WBC Latest Range: 3.8-11.0 k/cmm 4.1 EXT RSLT - HGB Latest Range: 13.4-17.5 g/dl 13.2 (A) EXT RSLT - PLT COUNT Latest Range: 140-450 k/cmm 299 EXT RSLT - ALT Latest Range: 4-55 U/L 35 Ref. Range 10/25/2013 Alanine Aminotransferase Latest Range: 4-55 U/L 22 Requested Prescriptions Signed Prescriptions Disp Refills ??? methotrexate 2.5 mg tablet 48 tablet 1 Sig: Take 4 tablets by mouth once a week. Routine blood tests are required. Authorizing Provider: LAURA HEDRICK Ordering User: CAROLINE CALLOWAY V ROOM CLERK * Mercedes Hurley - 11/20/2013 10:36 AM CST last appt 10-25-13; no future appts scheduled documented in this encounter Plan of Treatment Not on file documented as of this encounter Visit Diagnoses Not on filedocumented in this encounter
--- OUTSIDE RECORDS SUMMARY | 2024-11-12 14:16 | XMS_ITS | Encounter Summary ---
Author Organization [email or web address] Address [address] [place] [address] Care Team Providers Care Telegraph Repeater Technician Name Role Phone Unavailable Primary Care Provider Unavailabl e Reason for Visit * Reason Comments Follow-up Encounter Details Date Type Department Care Team (Late st Contact Info) Description 05/25/2011 1:30 PM CDT Office Visit Rheumatology at [place] [address] [place] [address]. [place] [address] Ronak Mosley MD [address] [place] [address] [phone] Other specified arthropathy, multiple sites (Primary Dx) Social History Tobacco Use Types Packs/Day Years Used Date Smoking Tobacco: Never Assessed Sex and Gender Information Value Date Recorded Sex Assigned at Not on file Gender Identity Not on file Sexual Orientation Not on file documented as of this encounter Last Filed Vital Signs Vital Sign Reading Time Taken Comments Blood Pressure 144/91 05/25/2011 1:27 PM CDT Pulse 65 05/25/2011 1:27 PM CDT Temperature - - Respiratory Rate - - Oxygen Saturation - - Inhaled Oxygen Concentration - - Weight 78.1 kg (172 lb 3.2 oz) 05/25/2011 1:27 P M CDT Height - - Body Mass Index 23.35 03/26/2009 2:31 PM CDT documented in this encounter Progress Notes * Ronak Mosley MD - 05/25/2011 1:58 PM CDT RHEUMATOLOGY CLINIC FOLLOW-UP VISIT SUBJECTIVE: 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 He has had a flare of pain in his hand joints, and a flare of iritis. This has now improved. His methotrexate dose is now up to 10 mg once weekly. He was advised by his capacity manager to again see me regarding management of his arthritis and his long-term prognosis. He was on 15 mg methotrexate one day each week in tow divided doses until a year or so ago when he developed genital warts that did not respond well to treatment. We cut the dose down and his warts then did resolve with treatment. He estimates that he has to use glucocorticoid eyedrops perhaps twice per year. Otherwise, no increased visible joint swelling, visible redness, or palpable joint warmth. Otherwise, denies any increased cough, shortness of breath, mouth sores, swollen glands, fevers, recurrent infections Medications are updated in Epic Review of systems positive for: some ongoing feelings of depression, anxiety, and sleep disturbance. Rest of review of systems is unremarkable according to the Follow-Up Rheumatology Problem Review Questionnaire OBJECTIVE: Vital signs are as noted below MUSCULOSKELETAL: Joints Right Left MCP???s S__ T__ [...] 28 Joint Count: 0 Pain, Pt Global, BLAS-II, and PAS-II scores in Rapid-3 flowsheet In all four limbs, joints otherwise without swelling, tenderness, warmth, erythema, loss of motion,pain on motion, misalignment, deformity or instability. IMPRESSIONS: 1. 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 Overall his prognosis remains excellent. I explained that in my judgment we could manage flares with intermittent medrol Dosepak if we do not need to do this veryoften. Alternatively we could add plaquenil, or increase his dose of methotrexate. The latter in particularly however may predispose him to return of genital warts. PLANS: 1. Discussed with him all of our options. 2. For now we will leave his methotrexate dose at 10 mg one day each week. 3. Check CBC, ALT, and creatinine once every 3 months 4. He will call if his joints flare again. 5. See me back in 2011 as previously scheduled. documented in this encounter Plan of Treatment Not on file documented as of this encounter Visit Diagnoses Diagnosis Other specified arthropathy, multiple sites- Primary documented in this encounter
--- OUTSIDE RECORDS SUMMARY | 2024-11-12 14:16 | XMS_ITS | Encounter Summary ---
Author Organization [employer] Address [address] [address] Care Team Providers Care Staker Surveying Name Role Phone Unavailable Primary Care Provider Unavailabl e Reason for Visit * Reason Comments Refill Encounter Details Date Type Department Care Team (Late st Contact Info) Description 10/05/2015 Refill Rheumatology at [address] [place] [address] Ronak Mosley MD [address] [place] [address] [phone] Refill Social History Tobacco Use Types Packs/Day Years Used Date Smoking Tobacco: Never Assessed Sex and Gender Information Value Date Recorded Sex Assigned at Not on file Gender Identity Not on file Sexual Orientation Not on file documented as of this encounter Nursing Notes * Lesley Granados - 10/05/2015 11:17 AM CST Last visit: 11/12/14 Future visit: 11/11/15 Last fill: 04/18/15 TER TENDER PAPER documented in this encounter Plan of Treatment Not on file documented as of this encounter Visit Diagnoses Not on filedocumented in this encounter
--- OUTSIDE RECORDS SUMMARY | 2024-11-12 14:16 | XMS_ITS | Encounter Summary ---
Author Organization [facility] Address [address] [place] [address] Care Team Providers Care Grips Name Role Phone Unavailable Primary Care Provider Unavailabl e Reason for Visit * Reason Comments Follow-up Encounter Details Date Type Department Care Team (Late st Contact Info) Description 11/11/2015 3:15 PM POTASH FLAKER Office Visit Rheumatology at [address] [place] [address] Ronak Mosley MD [address] [place] [address] [phone] HLA-B27 positive arthropathy (Primary Dx); High risk medication use Social History Tobacco Use Types Packs/Day Years Used Date Smoking Tobacco: Never Assessed Sex and Gender Information Value Date Recorded Sex Assigned at Not on file Gender Identity Not on file Sexual Orientation Not on file documented as of this encounter Last Filed Vital Signs Vital Sign Reading Time Taken Comments Blood Pressure 161/93 11/11/2015 3:07 PM POTASH FLAKER Pulse 71 11/11/2015 3:07 PM POTASH FLAKER Temperature - - Respiratory Rate 18 11/11/2015 3:07 PM POTASH FLAKER Oxygen Saturation - - Inhaled Oxygen Concentration - - Weight 85.3 kg (188 lb) 11/11/2015 3:07 PM POTASH FLAKER Height - - Body Mass Index 25.5 03/26/2009 2:31 PM CDT documented in this encounter Patient Instructions * Patient Instructions* Ronak Molsey MD - 11/11/2015 3:53 PM POTASH FLAKER Laboratory monitoring blood tests today and again on or around February 10, 2016; May 12, 2016; Aug 12, 2016 Biologic Medications TNF Blockers Etanercept (Enbrel), Infliximab (Remicade), Adaliumumab (Humira), Certolizumab pegol (Cimzia), Golimumab (Simponi) Purpose Tumor necrosis factor alpha (TNF-alpha) is a protein that is central to causing inflammation in rheumatoid arthritis, psoriatic arthritis, ankylosing spondylitis, and several other diseases. Etanercept (Enbrel), infliximab (Remicade), adalimumab (Humira), Certolizumab pegol (Cimzia), golimumab (Simp jose rafael) are medications that bind to and help eliminate high levels of TNF from the joints. Dose ??? Enbrel is given at a dose of 50 mg once weekly. It now comes in a prefilled 50 mg syringe and an autoinjecting pen (called Sureclick). It also is available in 25 mg vials which can be given once or twice weekly. Common sites of injections are the thigh and the abdomen. www.enbrel.[employer]ab[employer] has some helpful patient resources. ??? Remicade is given intravenously. The starting dose of the medication is usually started at 3-5 mg/kg. For example, if you weigh 160 pounds (72 kg), the starting dose of Remicade would be 216 mg. Many times, the dose is rounded to the nearest 100 mg increment. Traditionally, Remicade is given with infusions at weeks 0, 2, and 6 and then every 8 weeks thereafter. Sometimes the dose needs to be increased and/or the interval between infusions shortened to obtain maximal benefit. Maximum dose is10 mg/kg every 4 weeks. Remicade is an antibody. In the manufacturing process, a small amount of mouse protein is inserted into the antibody. As a result, some individuals develop antibodies against Remicade which could interfere with the drug???s action. Most doctors will prescribe methotrexate orother drugs with Remicade to prevent these antibodies from forming. www.remicade.Sabirmedical has more information. ??? Humira is given subcutaneously at a dose of 40 mg every 2 weeks, and can be increased to every week. The vials are 40 mg/0.8 mL. One box contains two vials (1 month supply). There is also an autoinjecting pen now available. www.humiraLinkwell [facility] has some helpful patient resources. ??? Cimzia is given subcutaneously. It comes in 200 mg vials. Initially, it is dose at 400 mg at weeks 0, 2, and 4, then at 200 mg every 2 weeks thereafter. www.cimzia.Sabirmedical has some helpful patient resources. ??? Simponi is given once monthly as a self injection under the skin. It comes in either a prefilled syringe or an autoinjector pen. Dose is 50 mg per month. It is also available in an intravenous form which is given as 2 mg/kg at weeks 0, 4, then every 8 weeks. This is a short infusion, lasting less than one hour. www.simiponiLink[facility] has some helpful resources. Potential side effects ??? Injection/Infusion reactions: Enbrel, Humira, Simponi and Cimzia are given subcutaneously. Sometimes, a red area of skin will occur at the injection site several days later, with mild discomfort.Normally, these are managed with some topical hydrocortisone cream and do not necessitate stopping the medicine. If the red area continues to expand, notify your doctor. Remicade is given by infusion. Infusion reactions can include the development of hives, elevated blood pressure, or lowered bloodpressure. Reactions can be treated in a variety of ways, including pre-medication with Tylenol and/or Benadryl or loratidine (Claritin or Alavert) and/or Solu-medrol, slowing down the infusion, or giving intravenous fluids. Serious infusion reactions are rare. ??? Infections: With all TNF blockers, there is an increased risk of upper respiratory infections (colds, bronchitis, etc.). More serious infections can also occur, including tuberculosis and certainfungal and bacterial infections. If you become ill with fever, seek evaluation by your primary physician, urgent care, or emergency room. During any infection beyond a simple cold or bladder infection, you should temporarily stop TNF blockers. ??? Tuberculosis, if it occurs, usually happens in patients who have had previous exposure to tuberculosis. For this reason, all patients should have a PPD (Tuberculin) skin test prior to starting treatment with a TNF taco. Some rheumatologists will also check a chest x-ray to look for evidence of previous lung infections. If the TB skin test is positive (more than 5), then treatment with a drug for TB would be required before starting a TNF taco. ??? Malignancy: Rheumatoid arthritis patients have an increased risk of developing lymphoma, a blood cell cancer, independent of what treatment they are given. There is some limited information that suggests that treatment with TNF blockers may increase cancer risk. Many of these are cancers which are easily screened for such as skin cancer, lymphoma, breast cancer, and colon cancer. We suggest that screening for such cancers with mammography, colonoscopy, skin exams, lymph node exams, etc., ethel regular part preventive care with your primary physician. The risk of cancer with TNF blockers appears low and ultimately the decision to start TNF taco therapy needs to balance this and other risks with the potential substantial benefit in preventing joint damage, pain, and disability. ??? MS-like syndromes: Very rarely, patients on TNF blockers have developed multiple sclerosis or other nerve problems. ??? Congestive heart Failure: TNF blockers are usually avoided in patients who have heart failure, but they do not cause heart failure in otherwise healthy patients with normal heart function. ??? Lupus-like syndromes: Very rarely, a patient may develop a lupus-like illness including rash, joint pain, and pleurisy (fluid around the lung), and this usually resolves with stopping the drug. ??? Blood problems: Rare cases of low white blood cell and low platelet counts have been reported with the use of TNF blockers. If you are not getting monitoring blood tests for methotrexate or othermedications, then it may be reasonable to check the blood count once or twice a year while on TNF blockers. Expected Effects The TNF blockers can have onset of action within a few days to weeks, but usually several months pass before one can determine maximal benefit. About 70% of patients have a significant response to TNF blockers. Besides reducing pain, swelling, and stiffness, they can halt or slow down joint damage. Monitoring The monitoring blood tests done for methotrexate and other drugs typically tried before adding TNF blockers are sufficient to monitor for blood problems from TNF blockers. If you are on a TNF blockeralone, then a blood count may be performed once or twice a year. Special Instructions Our nurses can provide instruction on how to perform self-injections of Enbrel, Humira, Simponi, Cimzia; The information from the companies that make these medications is also helpful in illustratingthe injection technique. TNF blockers are very expensive, ranging from about 12,000 - 40,000 dollars/year. Therefore, it is extremely important that you be approved by your insurance before beginningtherapy and that you understand what your copayment cost will be. There are some copay assistance programs that the companies provide. Deciding which TNF taco to go on depends on several factors including desired mode of administration (injection or IV), personal cost, and frequency of administration (twice a week, weekly, every 2 weeks, and every 1-2 months). One advantage to more frequent injections (Enbrel) is that if you develop an infection, the medication is out of your system faster when stopped than the longer acting TNF blockers like Humira, Cimzia, Simponi and Remicade. TNF blockers should be held around the time of major surgery. Enbrel should be held 7-14 days before and after surgery, Humira and Cimzia 2 weeks before and after surgery (total of 1 month), and Simponi and Remicade held for 1 month before and after surgery. What to expect next (if you are starting a self injectable): 1. We will begin a prior authorization process, trying to work with the pharmaceutical company and your insurance 2. We may contact you if we need any additional information. 3. We will work to get a prescription for the medication to the appropriate pharmacy, which could be a specialty pharmacy and may even be out of state. 4. If you haven't heard from the pharmacy who will end up supplying you the medication or from our office with a confirmation in about 10 business days, please call [phone] with a status update. What to expect next (if you are starting an intravenous medication): 1. Our infusion staff will process your insurance and you will receive a call about coverage for the medication. 2. The infusion staff will also contact you to schedule your infusion. 3. If you haven't heard from Rheumatology infusion services within 7-10 days, please call Poppy at [phone] for a status update. 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 Overall he is doing well. However, he has had several episodes of iritis often requiring methylprednisolone eyedrop therapy since I last saw him. Interestingly, he notes that if he is doing vigorous or prolonged activity that requires him to be bent forward or rotating his spine, that this increasesback pain which in turn leads to a flare of his iritis. He continues on methotrexate 10 mg one day each week and tolerates it well without noticeable side effects. Otherwise, no increased visible joint swelling, visible redness, or palpable joint warmth. Otherwise, denies any increased cough, shortness of breath, mouth sores, swollen glands, fevers, recurrent infections Current outpatient prescriptions: fluticasone (FLONASE) 50 mcg/actuation nasal spray, Place 2 sprays into each nostril daily (every 24 hours). Dose is for each nostril. , Note (11/12/2014): Using PRNallergy season, Disp: , Rfl: ; folic acid 1 mg tablet, Take 1 tablet by mouth daily (every 24 hours)., , Disp: 90 tablet, Rfl: 3 methotrexate 2.5 mg tablet, Take 4 tablets by mouth once a week. Routine blood tests are required.,, Disp: 48 tablet, Rfl: 3 Review of systems positive for: nil else [...] MDHAQ, and RAPID3 scores in Rapid-3 flowsheet In all four limbs, joints otherwise without swelling, tenderness, warmth, erythema, loss of motion,pain on motion, misalignment, deformity or instability. Most recent pertinent laboratory studies; Lab Results Component Value Date/Time WHITE BLOOD CELL COUNT 5.2 01/13/2011 1503 RED BLOOD CELL COUNT 4.82 01/13/2011 1503 HEMOGLOBIN 15.9 01/13/2011 1503 HEMATOCRIT 46.5 01/13/2011 1503 PLATELET COUNT 197 01/13/2011 1503 Lab Results Component Value Date/Time ALANINE AMINOTRANSFERASE 22 10/25/2013 1136 Lab Results Component Value Date/Time CREATININE SERUM 1.0 01/13/2011 1503 IMPRESSIONS: 1. 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 Clearly, it would be inadvisable to cut his methotrexate dose. I have discussed with him other systemic therapies for iritis, specifically anti-TNF therapies. These would be reasonable to consider if he and his quarry plug and feather driller become more concerned about the effect of local ocular glucocorticoid therapy. PLANS: 1. Continue methotrexate at current dose. 2. Check CBC, ALT, and creatinine once every 3 months 3. 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 4. See me back in one year. SH FLAKER documented in this encounter Plan of Treatment Not on file documented as of this encounter Visit Diagnoses Diagnosis HLA-B27 positive arthropathy- Primary Other specified arthropathy, site unspecified High risk medication use Encounter for long-term (current) use of other medications documented in this encounter
--- OUTSIDE RECORDS SUMMARY | 2024-11-12 14:16 | XMS_ITS | Encounter Summary ---
Author Organization [facility] [facility] Address [address], [place] [address] Care Team Providers Care Power Reactor Supervisor Name Role Phone Unavailable Primary Care Provider Unavailabl e Reason for Visit * Reason Comments Refill Encounter Details Date Type Department Care Team (Late st Contact Info) Description 12/27/2012 Refill Rheumatology at [address] [place] [address] Ronak Mosley MD [address] [place] [address] [phone] Refill Social History Tobacco Use Types Packs/Day Years Used Date Smoking Tobacco: Never Assessed Sex and Gender Information Value Date Recorded Sex Assigned at Not on file Gender Identity Not on file Sexual Orientation Not on file documented as of this encounter Nursing Notes * Artur Navarrete - 12/28/2012 8:47 AM CST Rx mailed to Patient. LRY CASTING MODEL MAKER APPRENTICE * Ronak Mosley MD - 12/27/2012 1:45 PM CST Signed Rx in my outbox LRY CASTING MODEL MAKER APPRENTICE * Artur Navarrete - 12/27/2012 9:03 AM CST Patient called [facility] did not have above rx for Patient, he is requesting a printed copy be mailed to him. please advise documented in this encounter Plan of Treatment Not on file documented as of this encounter Visit Diagnoses Diagnosis Other specified arthropathy, multiple sites Pain in joint, lower leg documented in this encounter
--- OUTSIDE RECORDS SUMMARY | 2024-11-12 14:16 | XMS_ITS | Encounter Summary ---
Author Organization [facility] Address [address], [place] [address] Care Team Providers Care Under Presser Name Role Phone Unavailable Primary Care Provider Unavailabl e Encounter Details Date Type Department Care Team (Late st Contact Info) Description 03/17/2011 PN Conversion Only Rheumatology at [place] [address] [place] [address]. [place] [address] Ronak Mosley MD [address] [place] [address] [phone] Social History Tobacco Use Types Packs/Day Years [...]
--- OUTSIDE RECORDS SUMMARY | 2024-11-12 14:16 | XMS_ITS | Encounter Summary ---
Author Organization [facility] ? Address [address] [place] [address] Care Team Providers Care Electrical Assembler Name Role Phone Unavailable Primary Care Provider Unavailabl e Reason for Visit * Reason Comments Refill Encounter Details Date Type Department Care Team (Late st Contact Info) Description 12/31/2012 Refill Rheumatology at [address] [place] [address] Ronak Mosley MD [address] [place] [address] [phone] Refill Social History Tobacco Use Types Packs/Day Years Used Date Smoking Tobacco: Never Assessed Sex and Gender Information Value Date Recorded Sex Assigned at Not on file Gender Identity Not on file Sexual Orientation Not on file documented as of this encounter Nursing Notes * Alta Granados - 12/31/2012 11:14 AM CST Last labs 10/26/12 outside [facility] pt. next appt. scheduled 10/25/13 documented in this encounter Plan of Treatment Not on file documented as of this encounter Visit Diagnoses Not on filedocumented in this encounter
--- OUTSIDE RECORDS SUMMARY | 2024-11-12 14:16 | XMS_ITS | Encounter Summary ---
Author Organization [facility] Address [address], [place] [address] Care Team Providers Care Porcelain Enameling Supervisor Name Role Phone Unavailable Primary Care Provider Unavailabl e Encounter Details Date Type Department Care Team (Late st Contact Info) Description 07/06/2010 PN Conversion Only FUR JOINER [address] [place] [address] Ronak Mosley MD [address] [place] [phone] Social History Tobacco Use Types Packs/Day Years Used Date Smoking Tobacco: Never Assessed Sex and Gender Information Value Date Recorded Sex Assigned at Not on file Gender Identity Not on file Sexual Orientation Not on file documented as of this encounter Plan of Treatment Not on file documented as of this encounter Procedures Procedure Name Priority Date/Time Associated Diagnosis Comments IRON BINDING CAPACITY (INCL IRON) Routine 07/06/2010 3:45 PM CDT FERRITIN Routine 07/06/2010 3:45 PM CDT FOLATE ONLY (4HR FAST RECOMMENDED) Routine 07/06/2010 3:45 PM CDT VITAMIN B12 ONLY Routine 07/06/2010 3:45 PM CDT documented in this encounter Results * Folate Only (4Hr Fast Recommended) (07/06/2010 3:45 PM CDT) Serum Folate 14.6 >5.9 ng/mL HP CONVERSION 07/06/2010 3:45 PM CDT Ronak Mosley MD LAB_1 HP CONVERSION * B12 Only (07/06/2010 3:45 PM CDT) Vitamin B12 663 211 - 911 pg/dL HP CONVERSION 07/06/2010 3:45 PM CDT Ronak Mosley MD LAB_1 HP CONVERSION * (ABNORMAL) IRON BINDING CAPACITY (INCL IRON) (07/06/2010 3:45 PM CDT) Iron, Serum 29(L) 50 - 165 ug/dL HP CONVERSION Iron Binding Capacity 416 250 - 450 ug/dL HP CONVERSION Iron Saturation 7(L) 20 - 55 % HP CONVERSION Iron TIBC Interpretation see below No normal range HP CONVERSION Comment:Low iron, normal TIB C, possible iron deficiency. 07/06/2010 3:45 PM CDT Ronak Mosley MD LAB_1 HP CONVERSION * (ABNORMAL) Ferritin (07/06/2010 3:45 PM CDT) Ferritin Serum 5(L) 22 - 322 ng/mL HP CONVERSION 07/06/2010 3:45 PM CDT Ronak Mosley MD LAB_1 HP CONVERSION documented in this encounter Visit Diagnoses Not on filedocumented in this encounter
--- OUTSIDE RECORDS SUMMARY | 2024-11-12 14:16 | XMS_ITS | Encounter Summary ---
Author Organization [employer] Address [address], [place] [address] Care Team Providers Care Oil Prospecting Observer Name Role Phone Unavailable Primary Care Provider Unavailabl e Reason for Visit * Reason Comments Other Encounter Details Date Type Department Care Team (Late st Contact Info) Description 04/18/2011 Telephone Rheumatology at [place] [address] [place] [address]. [place] [address] Center, Message Other Social History Tobacco Use Types Packs/Day Years Used Date Smoking Tobacco: Never Assessed Sex and Gender Information Value Date Recorded Sex Assigned at Not on file Gender Identity Not on file Sexual Orientation Not on file documented as of this encounter Progress Notes * Center, Message - 04/18/2011 10:46 AM CDT Phone Note filed by Real[employer] at 04/19/11 2845 Author: [employer] Service: (none) Author Type: (none) Filed: 04/19/11 5877 Note Time: 04/18/11 1046 Status: Addendum Medical Services Manager: [employer] (Resource) Related Notes: Original Note by Agata Morales (Physician) filed at 04/19/11 8905 PRESCRIPTION REFILL Please provide enough refills to last until patient's next visit. Comment:-lv 01-13-11 fv 01-13-12 Pharmacy Seq #:-[phone] Pharmacy Name-Phone/Fax:-[facility] [phone] or City:-[address] Clinician Name:-Dimitri Drug Name/Strength:-Folic Acid 1MG Tab Sig: Dose/Route/Freq:-1 tab daily Quantity & Last Fill:-#90 *ECODE~PNRF Created on 18Apr2011 10:46am by MICHAEL PENALOZA M On 18Apr2011 2:36pm BRAYAN SHEARER wrote: ok #90 with 5 refills Acknowledged by BRAYAN SHEARER on 2:36pm On 18Apr2011 2:38pm HAILEY WISE wrote: FAXED. On 19Apr2011 12:40pm LAURA HEDRICK wrote: Acknowledged. Acknowledged by LAURA HEDRICK on 12:40pm Y OPERATOR documented in this encounter Plan of Treatment Not on file documented as of this encounter Visit Diagnoses Not on filedocumented in this encounter
--- OUTSIDE RECORDS SUMMARY | 2024-11-12 14:16 | XMS_ITS | Encounter Summary ---
Author Organization [employer] Address [address] [address] Care Team Providers Care Director Of Managed Services Name Role Phone Unavailable Primary Care Provider Unavailabl e Encounter Details Date Type Department Care Team (Late st Contact Info) Description 08/02/2012 Notes/Orders Rheumatology at [place] [address] [place] [address]. [place] [address] Rnoak Mosley MD [address] [place] [address] [phone] Other specified arthropathy, multiple sites (Primary Dx) [...]
--- OUTSIDE RECORDS SUMMARY | 2024-11-12 14:16 | XMS_ITS | Encounter Summary ---
Author Organization [facility] Address [address], [place] [address] Care Team Providers Care Film Processing Supervisor Name Role Phone Unavailable Primary Care Provider Unavailabl e Reason for Visit * Reason Comments Other Encounter Details Date Type Department Care Team (Late st Contact Info) Description 04/15/2011 Telephone Rheumatology at [place] [address] [place] [address]. [place] [address] [place] [address] [place] [address] [phone] Other Social History Tobacco Use Types Packs/Day Years Used Date Smoking Tobacco: Never Assessed Sex and Gender Information Value Date Recorded Sex Assigned at Not on file Gender Identity Not on file Sexual Orientation Not on file documented as of this encounter Progress Notes * Radha Hamilton LPN - 04/15/2011 10:19 AM CDT Phone Note filed by Radha Hamilton LPN at 04/18/11 1112 Author: Radha Hamilton LPN Service: (none) Author Type: (none) Filed: 04/18/11 1112 Note Time: 04/15/11 1019 Status: Addendum Financial Analyst Accountant: gAata Conversion (Physician) Related Notes: Original Note by Agata Conversion (Physician) filed at 04/18/11 1112 Pt would like to increase his Methotrexate to four tablets a week. Pt is taking three tablets a week. He has had Iritis two times in the last month per M.D.in [place]. When he took five he had a runaway virus . He has pain in his Left hand for two weeks. Pt is available at [phone]. OK to leave a msg. Created on 15Apr2011 10:19am by RADHA HAMILTON On 18Apr2011 8:19am LAURA HEDRICK wrote: By all means he may increase to 4 tablets each week. Dispense #16, 12 refills Acknowledged by LAURA HEDRICK on 8:19am On 18Apr2011 9:41am HAILEY WISE wrote: I left a message for Vinh to call back. On 18Apr2011 11:08am EFRAIN DICK wrote: Spoke to patient and gave him the message stated above, rx faxed. STICS TECHNICIAN documented in this encounter Plan of Treatment Not on file documented as of this encounter Visit Diagnoses Not on filedocumented in this encounter
--- OUTSIDE RECORDS SUMMARY | 2024-11-12 14:16 | XMS_ITS | Encounter Summary ---
Author Organization [employer] Address [address] [address] Care Team Providers Care Milk Driver Name Role Phone Unavailable Primary Care Provider Unavailabl e Reason for Visit * Reason Comments Refill Encounter Details Date Type Department Care Team (Late st Contact Info) Description 04/15/2013 Telephone Rheumatology at [place] [address] [place] [address]. [place] [address] Ronak Mosley MD [address] [place] [address] [phone] Refill Social History Tobacco Use Types Packs/Day Years Used Date Smoking Tobacco: Never Assessed Sex and Gender Information Value Date Recorded Sex Assigned at Not on file Gender Identity Not on file Sexual Orientation Not on file documented as of this encounter Nursing Notes * Cristina Nichols LPN - 04/15/2013 2:38 PM CDT Patient given the information stated below. * Ronak Mosley MD - 04/15/2013 2:09 PM CDT Script sent. Please let him know he should get monitoring labs CBC and ALT in [facility], I have no record of them since 10/2012. * Alta Granados - 04/15/2013 11:07 AM CDT Lab Results Component Value Date/Time White Blood Cell Count 5.2 01/13/2011 1503 Red Blood Cell Count 4.82 01/13/2011 1503 Hemoglobin 15.9 01/13/2011 1503 Hematocrit 46.5 01/13/2011 1503 Mean Corpuscular Volume 96.4 01/13/2011 1503 RDW 12.4 01/13/2011 1503 Platelet Count 197 01/13/2011 1503 Lab Results Component Value Date/Time Alanine Aminotransferase 23 01/13/2011 1503 documented in this encounter Plan of Treatment Not on file documented as of this encounter Visit Diagnoses Not on filedocumented in this encounter
--- OUTSIDE RECORDS SUMMARY | 2024-11-12 14:16 | XMS_ITS | Encounter Summary ---
Author Organization [employer] Address [address] [address] Care Team Providers Care Director Information Security Name Role Phone Unavailable Primary Care Provider Unavailabl e Reason for Visit * Reason Comments Follow-up Encounter Details Date Type Department Care Team (Late st Contact Info) Description 11/12/2014 3:15 PM DIRECTIONAL BORE OPERATOR Office Visit Rheumatology at [place] [address] [place] [address]. [place] [address] Ronak Mosley MD [address] [place] [address] [phone] Other specified arthropathy, multiple sites (Primary Dx) Social History Tobacco Use Types Packs/Day Years Used Date Smoking Tobacco: Never Assessed Sex and Gender Information Value Date Recorded Sex Assigned at Not on file Gender Identity Not on file Sexual Orientation Not on file documented as of this encounter Last Filed Vital Signs Vital Sign Reading Time Taken Comments Blood Pressure 135/84 11/12/2014 3:17 PM DIRECTIONAL BORE OPERATOR Pulse 69 11/12/2014 3:17 PM DIRECTIONAL BORE OPERATOR Temperature - - Respiratory Rate - - Oxygen Saturation - - Inhaled Oxygen Concentration - - Weight 85.5 kg (188 lb 8 oz) 11/12/2014 3:17 PM DIRECTIONAL BORE OPERATOR Height - - Body Mass Index 25.57 03/26/2009 2:31 PM CDT documented in this encounter Progress Notes * Ronak Mosley MD - 11/19/2014 12:04 PM CST RHEUMATOLOGY CLINIC FOLLOW-UP VISIT SUBJECTIVE: Vinh Guillen returns for 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 He is doing about the same as when I saw him one year ago. He is still running, and does use a soft knee brace to prevent substantial knee pain. He still can get some lateral thigh pain related to hisiliotibial band after a 3 to 4 mile run. He continues on methotrexate 10 mg once weekly and this seems to be sufficient to keep the bulk of his arthritis symptoms in check. Otherwise, no increased visible joint swelling, visible redness, or palpable joint warmth. Otherwise, denies any increased cough, shortness of breath, mouth sores, swollen glands, fevers, recurrent infections Current outpatient prescriptions:fluticasone (FLONASE) 50 mcg/actuation nasal spray, Place 2 spraysinto each nostril daily (every 24 hours). Dose is for each nostril. , Disp: , Rfl: , ; folic acid 1mg tablet, Take 1 tablet by mouth daily (every 24 hours)., Disp: 90 tablet, Rfl: 3, ketoprofen 20% topical gel, Apply topically 3 times daily as needed for Pain. 60g:Ketoprofen rfwarg63 grams+Ethoxy diglycol 0.6ml+Lipoil 14.4ml+Polox Gel 33ml, Disp: 60 g, Rfl: 3, ; ketoprofen 20% topical gel, Apply topically 3 times daily as needed for Pain. Ketoprofen powder 12 grams+Ethoxy diglycol 0.6ml+Lipoil 14.4ml+Polox Gel 33ml, Disp: 60 g, Rfl: 12, methotrexate 2.5 mg tablet, Take 4 tablets by mouth once a week. Routine blood tests are required.,Disp: 48 tablet, Rfl: 1, ; OXYGEN-AIR DELIVERY SYSTEMS (HORIZON NASAL CPAP SYSTEM MISC), by Misc.(Non-Drug; Combo Route) route., Disp: , Rfl: , Review of systems positive for: nil else Rest of review of systems is unremarkable [...] or instability. Most recent pertinent laboratory studies; CBC and ALT tests in [facility] on 08/27/2014 were normal except for a mildly low hemoglobin of 12.4 IMPRESSIONS: 1. HLA-B27 arthritis, with low inflammatory activity. PLANS: 1. Continue methotrexate in current dose and folic acid 1 mg daily. 2. I will re-do the letter for the [employer] indicating I see no medical impairment from his arthritis. 3. Check CBC, ALT, once every 3 months and creatinine once every 6 months in [facility]. 4. See me back in one year. CTIONAL BORE OPERATOR documented in this encounter Plan of Treatment Not on file documented as of this encounter Visit Diagnoses Diagnosis Other specified arthropathy, multiple sites- Primary documented in this encounter
--- OUTSIDE RECORDS SUMMARY | 2024-11-12 14:16 | XMS_ITS | Encounter Summary ---
Author Organization [employer] Address [address] [address] Care Team Providers Care Melter Helper Name Role Phone Unavailable Primary Care Provider Unavailabl e Encounter Details Date Type Department Care Team (Late st Contact Info) Description 11/11/2015 3:50 PM CROWN AND BRIDGE TECHNICIAN Lab Visit [place] [address] [facility] [place] [address] HLA-B27 positive arthropathy; High risk medication use Social History Tobacco [...] Associated Diagnosis Comments CREATININE / GFR Routine 11/11/2015 4:10 PM CROWN AND BRIDGE TECHNICIAN HLA-B27 positive arthropathy High risk medication use COMPLETE BLOOD COUNT-W/DIFF Routine 11/11/2015 4:10 PM CROWN AND BRIDGE TECHNICIAN HLA-B27 positive arthropathy High risk medication use DIFFERENTIAL Routine 11/11/2015 4:10 PM CROWN AND BRIDGE TECHNICIAN ALT (SGPT) Routine 11/11/2015 4:10 PM CROWN AND BRIDGE TECHNICIAN HLA-B27 positive arthropathy High risk medication use documented in this encounter Results * Differential (11/11/2015 4:10 PM CROWN AND BRIDGE TECHNICIAN) Absolute Neutrophils 3.4 1.8 - 8.0 k/cmm HP CONVERSION Absolute Lymphocytes 1.4 1.1 - 4.0 k/cmm HP CONVERSION Absolute Monocytes 0.6 0.2 - 0.8 k/cmm HP CONVERSION Absolute Eosinophils 0.2 0.0 - 0.5 k/cmm HP CONVERSION Absolute Basophils 0.1 0.0 - 0.2 k/cmm HP CONVERSION Immature Granulocytes 0.2 0.0 - 0.5 % HP CONVERSION 11/11/2015 4:10 PM CROWN AND BRIDGE TECHNICIAN 11/11/2015 4:10 PM CROWN AND BRIDGE TECHNICIAN Narrative HP CONVERSION - 11/11/2015 4:21 PM CROWN AND BRIDGE TECHNICIAN [place] [address] CLIA number [id number] Ronak Mosley MD LAB_1 Performing Organization Address [facility] de Phone Number HP CONVERSION * (ABNORMAL) Complete Blood Count W/Diff (11/11/2015 4:10 PM CROWN AND BRIDGE TECHNICIAN) [facility] White Blood Cell Count 5.6 3.8 - 11.0 k/cmm HP CONVERSION Red Blood Cell Count 4.64 4.20 - 5.90 m/cmm HP CONVERSION Hemoglobin 12.1(L) 13.4 - 17.5 g/dL HP CONVERSION Hematocrit 38.7(L) 39.0 - 51.0 % HP CONVERSION Mean Corpuscular Volume 83.4 80.0 - 100.0 fL HP CONVERSION RDW 16.6(H) 11.0 - 15.0 % HP CONVERSION Platelet Count 252 140 - 450 k/cmm HP CONVERSION 11/11/2015 4:10 PM CROWN AND BRIDGE TECHNICIAN 11/11/2015 4:10 PM CROWN AND BRIDGE TECHNICIAN Narrative HP CONVERSION - 11/11/2015 4:20 PM CROWN AND BRIDGE TECHNICIAN Performed at [facility], [address] [place] [address] CLIA number [id number] Ronak Mosley MD LAB_1 Performing Organization Address [facility] de Phone Number HP CONVERSION * Creatinine / GFR (11/11/2015 4:10 PM CROWN AND BRIDGE TECHNICIAN) Creatinine Serum 1.17 0.73 - 1.18 mg/dL HP CONVERSION Est GFR Am >60 >60 mL/min/1.7 3m2 HP CONVERSION Est GFR Non-Afr Am >60 >60 mL/min/1.7 3m2 HP CONVERSION Comment: Normal>60, moderate decrease 30 - 59, severe decrease 15 - 29, renal failure <15 mL/min/1.73 m2 NOTE: Choose the eGFR result above appropriate for the race of the patient. 11/11/2015 4:10 PM CROWN AND BRIDGE TECHNICIAN 11/11/2015 4:10 PM CROWN AND BRIDGE TECHNICIAN Narrative HP CONVERSION - 11/11/2015 5:07 PM CROWN AND BRIDGE TECHNICIAN Performed at [facility], [address] [place] [address] CLIA number [id number] Ronak Mosley MD LAB_1 Performing Organization Address [facility] de Phone Number HP CONVERSION * ALT (SGPT) (11/11/2015 4:10 PM CROWN AND BRIDGE TECHNICIAN) Alanine Aminotransferase 27 9 - 55 U/L HP CONVERSION 11/11/2015 4:10 PM CROWN AND BRIDGE TECHNICIAN 11/11/2015 4:10 PM CROWN AND BRIDGE TECHNICIAN Narrative HP CONVERSION - 11/11/2015 5:07 PM CROWN AND BRIDGE TECHNICIAN Performed at [facility], [address] [place] [address] CLIA number [id number] Ronak Mosley MD LAB_1 Performing Organization Address [facility] Co de Phone Number HP CONVERSION documented in this encounter Visit Diagnoses Diagnosis HLA-B27 positive arthropathy Other specified arthropathy, site unspecified High risk medication use Encounter for long-term (current) use of other medications documented in this encounter
--- OUTSIDE RECORDS SUMMARY | 2024-11-12 14:16 | XMS_ITS | Encounter Summary ---
Author Organization [employer] Address [address] [place] [address] Care Team Providers Care Sanitation Supervisor Name Role Phone Unavailable Primary Care Provider Unavailabl e Reason for Visit * Reason Comments Follow-up Encounter Details Date Type Department Care Team (Late st Contact Info) Description 10/26/2012 11:00 AM RODDING ANODE WORKER Office Visit Rheumatology at [address] [place] [address] Ronak Mosley MD [address] [place] [address] [phone] Other specified arthropathy, multiple sites (Primary Dx); Encounter for long-term (current) use of other medications Social History Tobacco Use Types Packs/Day Years Used Date Smoking Tobacco: Never Assessed Sex and Gender Information Value Date Recorded Sex Assigned at Not on file Gender Identity Not on file Sexual Orientation Not on file documented as of this encounter Last Filed Vital Signs Vital Sign Reading Time Taken Comments Blood Pressure 149/96 10/26/2012 11:25 AM RODDING ANODE WORKER Pulse 70 10/26/2012 11:25 AM RODDING ANODE WORKER Temperature - - Respiratory Rate 22 10/26/2012 11:25 AM RODDING ANODE WORKER Oxygen Saturation - - Inhaled Oxygen Concentration - - Weight 82.7 kg (182 lb 5 oz) 10/26/2012 11:25 AM RODDING ANODE WORKER Height - - Body Mass Index 24.73 03/26/2009 2:31 PM CDT documented in this encounter Progress Notes * Ronak Mosley MD - 10/26/2012 4:56 PM CST RHEUMATOLOGY CLINIC FOLLOW-UP VISIT SUBJECTIVE: 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 Overall he is doingpretty well. He continues on methotrexate 10 mg once weekly, and he is not experiencing any currentside effects to this. He is having some knee discomfort that at rest or with walking is only a mild annoyance, but it is interfering with his ability to run. He does have increased knee pain for a few hours at least aftera run. He rolled onto his fingers from a head stand and had a flare of his arthritis with increase pain,swelling, redness in small joints of his left hand. He did have a flare of lower back pain after helping his brother install posts in post holes, followed by an episode of iritis (treated with Pred Forte). Otherwise, no increased visible joint swelling, visible redness, or palpable joint warmth. Otherwise, denies any increased cough, shortness of breath, mouth sores, swollen glands, fevers, recurrent infections Current outpatient prescriptions:fluticasone (FLONASE) 50 mcg/actuation nasal spray, Place 2 spraysinto each nostril daily (every 24 hours). Dose is for each nostril. , Disp: , Rfl: ; folic acid 1 mg tablet, Take 1 tablet by mouth daily (every 24 hours)., Disp: 90 tablet, Rfl: 5; methotrexate 2.5 mg tablet, Take 4 tablets by mouth once a week., Disp: 52 tablet, Rfl: 03 OXYGEN-AIR DELIVERY SYSTEMS (HORIZON NASAL CPAP SYSTEM MIS), by [facility].(Non-Drug; Combo Route) route., Disp: , Rfl: Review of systems positive for: some difficulty sleeping, is now using CPAP. Rest of review of systems is unremarkable [...] S__ T__ MTP???s S__ T___ S__ T__ Straight leg raise shows his hamstring muscles to be very tight, especially on the left. Loss of motion: none Pain on motion: none Misalignment / Deformity: none Osteophytes: mild osteophytes DIP and PIP joints Nodules: none Tender 28 Joint Count: 0 Swollen 28 Joint Count: 0 Pain, Pt Global, MDHAQ, and RAPID3 scores in Rapid-3 flowsheet In all four limbs, joints otherwise without swelling, tenderness, warmth, erythema, loss of motion,pain on motion, misalignment, deformity or instability. Most recent pertinent laboratory studies; Lab Results Component Value Date/Time White Blood Cell Count 5.2 01/13/2011 15:03 Red Blood Cell Count 4.82 01/13/2011 15:03 Hemoglobin 15.9 01/13/2011 15:03 Hematocrit 46.5 01/13/2011 15:03 Mean Corpuscular Volume 96.4 01/13/2011 15:03 RDW 12.4 01/13/2011 15:03 Platelet Count 197 01/13/2011 15:03 Lab Results Component Value Date/Time Alanine Aminotransferase 23 01/13/2011 15:03 Lab Results Component Value Date/Time Creatinine Serum 1.0 01/13/2011 15:03 IMPRESSIONS: 1. HLA-B27 arthritis, with very low inflammatory activity on 10 mg of methotrexate once weekly. 2. Osteoarthritis of the hands. 3. Left knee pain. I think the pain is emanating from his hamstring attachments on his tibial plateau and proximal fibula. It is possible there is a component of enthesopathy, but I think a lot of this is mechanical due to very tight hamstring muscles. PLANS: 1. I have urged that he start stretching his hamstring muscles every day more strenuously. 2. I have printed off a prescription for topical ketoprofen gel 20%. He will fill this prescriptionand apply this to the sore areas of his left knee if stretching plus applying his knee band is not sufficient helpful. 3. Continue methotrexate 10 mg once weekly. 4. Check CBC, ALT, once every 3 months and creatinine once every 6 months. 5. See me back for review in 1 year. documented in this encounter Plan of Treatment Not on file documented as of this encounter Visit Diagnoses Diagnosis Other specified arthropathy, multiple sites- Primary Encounter for long-term (current) use of other medications documented in this encounter
--- OUTSIDE RECORDS SUMMARY | 2024-11-12 14:16 | XMS_ITS | Encounter Summary ---
Author Organization [email or web address] Address [address], [place] [address] Care Team Providers Care Director Product Development Name Role Phone Unavailable Primary Care Provider Unavailabl e Reason for Visit * Reason Comments Refill Encounter Details Date Type Department Care Team (Late st Contact Info) Description 04/30/2012 Refill Rheumatology at [place] [address] [place] [address]. [place] [address] Ronak Mosley MD [address] [place] [address] [phone] Refill Social History Tobacco Use Types Packs/Day [...]
--- OUTSIDE RECORDS SUMMARY | 2024-11-12 14:16 | XMS_ITS | Encounter Summary ---
Author Organization [employer] Address [address] [place] [address] Care Team Providers Care Strategic Solutions Consultant Name Role Phone Unavailable Primary Care Provider Unavailabl e Reason for Visit * Reason Comments Follow-up Encounter Details Date Type Department Care Team (Late st Contact Info) Description 12/26/2012 11:15 AM LADLE FILLER Office Visit Rheumatology at [place] [address] [place] [address]. [place] [address] Ronak Mosley MD [address] [place] [address] [phone] Other specified arthropathy, multiple sites (Primary Dx); Pain in joint, lower leg; Osteoarthritis of left knee Social History Tobacco Use Types Packs/Day Years Used Date Smoking Tobacco: Never Assessed Sex and Gender Information Value Date Recorded Sex Assigned at Not on file Gender Identity Not on file Sexual Orientation Not on file documented as of this encounter Last Filed Vital Signs Vital Sign Reading Time Taken Comments Blood Pressure 142/85 12/26/2012 11:22 AM LADLE FILLER Pulse 59 12/26/2012 11:22 AM LADLE FILLER Temperature - - Respiratory Rate 22 12/26/2012 11:22 AM LADLE FILLER Oxygen Saturation - - Inhaled Oxygen Concentration - - Weight - - Height - - Body Mass Index - - documented in this encounter Progress Notes * Ronak Mosley MD - 01/06/2013 7:55 AM CST RHEUMATOLOGY CLINIC FOLLOW-UP VISIT SUBJECTIVE: Vinh Guillen returns for 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 He has noticed some increased swelling and pain in his left knee - although now it is better. He wasadvised by his [facility] in [place] to be re-evaluated. X-rays of his knee did suggestmild degenerative changes. He has not been able to make progress strethcing his hamstrings. He has been unable to run since last summer and would like to restart. He plans on restarting vigorous bicycling this spring. Otherwise, no increased visible joint swelling, visible [...] (every 24 hours)., Disp: 90 tablet, Rfl: 5 ketoprofen 20% topical gel, Apply topically 3 times daily as needed for Pain. Ketoprofen powder 12 grams+Ethoxy diglycol 0.6ml+Lipoil 14.4ml+Polox Gel 33ml, Disp: 60 g, Rfl: 12; methotrexate 2.5 mg tablet, Take 4 tablets by mouth once a week., Disp: 52 tablet, Rfl: 03; OXYGEN-AIR DELIVERY SYSTEMS (HORIZON NASAL CPAP SYSTEM MISC), by Misc.(Non-Drug; Combo Route) route., Disp: , Rfl: Review of systems positive for: nil else Rest of review of systems is unremarkable according to the Follow-Up Rheumatology Problem Review Questionnaire OBJECTIVE: Vital signs are as noted below MUSCULOSKELETAL: Joints Right Left MCP???s S__ T__ S__ T__ PIP???s S__ T__ S_1_ T_1_ 1st CMC???s S__ T___ S__ T__ Wrists S__ T___ S__ T__ Elbows S__ T___ S__ T__ Shoulders S__ T___ S__ T__ Knees S__ T___ S__ T__ Ankles S__ T___ S__ T__ MTP???s S__ T___ S__ T__ Loss of motion: none Pain on motion: none Misalignment / Deformity: none Osteophytes: none Nodules: none Tender 28 Joint Count: 1 Swollen 28 Joint Count: 1 Pain, Pt Global, MDHAQ, and RAPID3 scores [...] 01/13/2011 15:03 IMPRESSIONS: 1. HLA-B27 arthritis, with low inflammatory activity. 2. Probable early osteoarthritis of his left knee. It appears that his effusoin has resolved, and Waldemar not think it is appropriate to inject his knee at this moment. I think he needs the biomechanicsof his knee joint evaluated by a physical therapist who is experienced seeing athletes and other who put high levels of mechanical stress on their knees and perfomr acticiviteis at a high level. PLANS: 1. Under sterile conditions via the lateral approach, the left knee was prepped with betadine and alcohol, and the 0 ml of fluid was aspirated from the joint. The knee was then injected with 60 mg oftriamcinolone acetonide 2. Referral to physical therapy in [place] for further evaluation of his knee biomechanics 3. Continue methotrexate in current dose. 4. Check CBC, ALT, once every 3 months and creatinine once every 6 months 5. See me back for review in 9 months documented in this encounter Plan of Treatment Not on file documented as of this encounter Visit Diagnoses Diagnosis Other specified arthropathy, multiple sites- Primary Pain in joint, lower leg Osteoarthritis of left knee Osteoarthrosis, unspecified whether generalized or localized, lower leg documented in this encounter
--- OUTSIDE RECORDS SUMMARY | 2024-11-12 14:16 | XMS_ITS | Encounter Summary ---
Author Organization [employer] Address [address] [place] [address] Care Team Providers Care Ruby On Rails Consultant Name Role Phone Unavailable Primary Care Provider Unavailabl e Reason for Visit * Reason Comments Follow-up Encounter Details Date Type Department Care Team (Late st Contact Info) Description 01/13/2012 11:00 AM NATIONAL PARK RANGER Office Visit Rheumatology at [address] [place] [address] Ronak Mosley MD [address] [place] [address] [phone] Encounter for long-term (current) use of other medications (Primary Dx) Social History Tobacco Use Types Packs/Day Years Used Date Smoking Tobacco: Never Assessed Sex and Gender Information Value Date Recorded Sex Assigned at Not on file Gender Identity Not on file Sexual Orientation Not on file documented as of this encounter Last Filed Vital Signs Vital Sign Reading Time Taken Comments Blood Pressure 155/99 01/13/2012 11:28 AM NATIONAL PARK RANGER Pulse 64 01/13/2012 11:28 AM NATIONAL PARK RANGER Temperature - - Respiratory Rate - - Oxygen Saturation - - Inhaled Oxygen Concentration - - Weight 82.1 kg (181 lb) 01/13/2012 11:28 AM NATIONAL PARK RANGER Height - - Body Mass Index 24.55 03/26/2009 2:31 PM CDT documented in this encounter Progress Notes * Ronak Mosley MD - 01/22/2012 7:40 PM CDT RHEUMATOLOGY CLINIC FOLLOW-UP VISIT SUBJECTIVE: 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 He has developed increased pain in the right side of his chest wall and his lower back. This feels to him like prior episodes of arthritis flares. He continues on methotrexate 10 mg in one dose each week without noticeable side effects. He is under a lot of stress. He has just gone through a divorce, and is battling depression. Otherwise, no increased visible joint swelling, visible redness, or palpable joint warmth. Otherwise, denies any increased cough, shortness of breath, mouth sores, swollen glands, fevers, recurrent infections Current outpatient prescriptions:ferrous sulfate 325 mg (65 mg iron) tablet, Take 1 tablet by mouth2 times daily. LW Addl Instr:Indicated for: Iron Deficiency Anemia, Disp: 60, Rfl: 3; fluconazole (DIFLUCAN) 200 mg tablet, Take 1 tablet by mouth. LW Comment:once a week LW Addl Instr:Indicated for:Afia Infection, Disp: , Rfl: ; folic acid 1 mg tablet, Take 1 tablet by mouth daily (every 24 hours)., Disp: 90, Rfl: 5 ibuprofen (MOTRIN) 200 mg tablet, Take 4 tablets by mouth 3 times daily as needed. LW Comment:For back pain LW Addl Instr:Take with food., Disp: , Rfl: ; methotrexate 2.5 mg tablet, Take 4 tablets bymouth once a week., Disp: 16, Rfl: 12; op medications reviewed, , Disp: , Rfl: Review of systems positive for: none Rest of review of systems is unremarkable [...] S__ T__ MTP???s S__ T___ S__ T__ Mildly tender over the right SI joint Loss of motion: none Pain on [...] Serum 1.0 01/13/2011 15:03 IMPRESSIONS: 1. HLA-B27 arthropathy. I am unsure as to whether or not his chest wall and lower back pain is due to this problem being active or not. I do think a burst of prednisone is worthwhile. PLANS: 1. Prednisone 20 mg daily for 5 days, then 15 mg daily for 5 days, then 10 mg daily for 5 days, then 5 mg daily for 5 days. 2. If this is ineffective or if his symptoms return after he is off of the prednisone, he will callus. 3. Check CBC, ALT, once every 3 months and creatinine once every 6 months 4. See me back in 3 months. documented in this encounter Plan of Treatment Not on file documented as of this encounter Visit Diagnoses Diagnosis Encounter for long-term (current) use of other medications- Primary documented in this encounter
--- OUTSIDE RECORDS SUMMARY | 2024-11-12 14:16 | XMS_ITS | Encounter Summary ---
Author Organization [employer] Address [address] [place] [address] Care Team Providers Care Vice President Compliance Name Role Phone Unavailable Primary Care Provider Unavailabl e Reason for Visit * Reason Comments Other Encounter Details Date Type Department Care Team (Late st Contact Info) Description 07/07/2010 Telephone Rheumatology at [place] [address] [place] [address]. [place] [address] Center, Message Other Social History Tobacco Use Types Packs/Day Years Used Date Smoking Tobacco: Never Assessed Sex and Gender Information Value Date Recorded Sex Assigned at Not on file Gender Identity Not on file Sexual Orientation Not on file documented as of this encounter Progress Notes * Laura Hedrick MD - 07/07/2010 1:44 PM CDT Phone Note filed by Laura Hedrick MD at 03/05/11 7844 Author: Laura Hedrick MD Service: (none) Author Type: Physician Filed: 03/05/11 1603 Note Time: 07/07/10 1344 Status: Signed Rough And Trueing Machine Operator: Laura Hedrick MD (Physician) Please let know that his labs from yesterday show that he is quite iron deficient (lab letter on way to him). Odds are this is from slow gastro-intestinal tract bleeding. Lets get iron replacement therapy going (iron sulphate script entered). He needs to be worked up for GI bleeding - he should see his primary care doc about this. His folic acid and B12 levels are normal. Created on 07Jul2010 1:44pm by LAURA HEDRICK On 07Jul2010 2:01pm CARMELLA HAMPTON wrote: Left message for patient to call back. On 07Jul2010 4:38pm CARMELLA HAMPTON wrote: Pt called back, understood above information and will make appt with primary. Rx faxed to pharmacy. REMOVAL SPECIALIST documented in this encounter Plan of Treatment Not on file documented as of this encounter Visit Diagnoses Not on filedocumented in this encounter
--- OUTSIDE RECORDS SUMMARY | 2024-11-12 14:16 | XMS_ITS | Encounter Summary ---
Author Organization [employer] Address [address] [address] Care Team Providers Care Kiln Fireman Name Role Phone Unavailable Primary Care Provider Unavailabl e Reason for Visit * Reason Comments Medication Questions Encounter Details Date Type Department Care Team (Late st Contact Info) Description 12/27/2012 Telephone Rheumatology at [place] [address] [place] [address]. [place] [address] Ronak Mosley MD [address] [place] [address] [phone] Medication Questions Social History Tobacco Use Types [...]
--- OUTSIDE RECORDS SUMMARY | 2024-11-12 14:16 | XMS_ITS | Encounter Summary ---
Author Organization [employer] Address [address] [address] Care Team Providers Care Refinery Operator Helper Crude Unit Name Role Phone Unavailable Primary Care Provider Unavailabl e Reason for Visit * Reason Comments Refill Encounter Details Date Type Department Care Team (Late st Contact Info) Description 05/05/2014 Refill Rheumatology at [address] [place] [address] Laura Hedrick MD [address] [place] [address] [phone] Refill Social History Tobacco Use Types Packs/Day Years Used Date Smoking Tobacco: Never Assessed Sex and Gender Information Value Date Recorded Sex Assigned at Not on file Gender Identity Not on file Sexual Orientation Not on file documented as of this encounter Nursing Notes * Caroline Calloway V - 05/05/2014 2:55 PM CDT 02/27/2014 EXT RSLT - WBC 5.2 EXT RSLT - HGB 12.4 (A) EXT RSLT - PLT COUNT 229 EXT RSLT - CREATININE 1.1 EXT RSLT - ALT 21 Requested Prescriptions Signed Prescriptions Disp Refills ??? methotrexate 2.5 mg tablet 48 tablet 1 Sig: Take 4 tablets by mouth once a week. Routine blood tests are required. Authorizing Provider: LAURA HEDRICK Ordering User: CAROLINE CALLOWAY V * Latia Dubois - 05/05/2014 2:31 PM CDT last visit 10-25-13. Future visit none documented in this encounter Plan of Treatment Not on file documented as of this encounter Visit Diagnoses Not on filedocumented in this encounter
--- OUTSIDE RECORDS SUMMARY | 2024-11-12 14:16 | XMS_ITS | Encounter Summary ---
Author Organization [employer] Address [address] [place] [address] Care Team Providers Care Courtroom Clerk Name Role Phone Unavailable Primary Care Provider Unavailabl e Encounter Details Date Type Department Care Team (Late st Contact Info) Description 01/13/2011 Office Visit Rheumatology at [place] [address] [place] [address]. [place] [address] Ronak Mosley MD [address] [place] [address] [phone] Social History Tobacco Use Types Packs/Day Years Used Date Smoking Tobacco: Never Assessed Sex and Gender Information Value Date Recorded Sex Assigned at Not on file Gender Identity Not on file Sexual Orientation Not on file documented as of this encounter Last Filed Vital Signs Vital Sign Reading Time Taken Comments Blood Pressure 142/84 01/13/2011 1:49 PM MASSAGE OPERATOR Pulse 60 01/13/2011 1:49 PM MASSAGE OPERATOR Temperature - - Respiratory Rate - - Oxygen Saturation - - Inhaled Oxygen Concentration - - Weight 82.1 kg (181 lb) 01/13/2011 1:49 PM MASSAGE OPERATOR C : 82.1kg Height - - Body Mass Index 24.55 03/26/2009 2:31 PM CDT documented in this encounter Progress Notes * Ronak Mosley MD - 01/13/2011 12:01 AM CST RHEUMATOLOGY CLINIC FOLLOW-UP VISIT SUBJECTIVE: Mr. Guillen returns for follow-up regarding his HLA-B27 arthritis. He has had a sore foot following extensive running (up to six miles every other day). Now he ended up getting pain lateral aspect of the left leg, where it would hurt to walk. The pain is in the region of the left SI joint and radiates to the left buttock but not below that. Even yoga with prolonged poses causes some of this pain. He has had no recurrence of genital warts on methotrexate 7.5 mg once weekly. He also has iron deficiency that is mostly but not fully corrected. He has been worked up for GI causes of blood loss, he states, by his physicians outside of [facility] in [place]. He does complain of mild fatigue, and wonders if he needs a bone density test and a testosterone level checked. Otherwise, no increased visible joint swelling, visible redness, or palpable joint warmth. Otherwise, denies any increased cough, shortness of breath, mouth sores, swollen glands, fevers, recurrent infections Medications are updated in [employer] Review of systems positive for: mild weakness Rest of review of systems is unremarkable according to the Follow-Up Rheumatology Problem Review Questionnaire OBJECTIVE: BP: 142/84 Pulse: 60/min Weight: 181 lbs MUSCULOSKELETAL: Joints Right Left MCPs S__ T__ S__ T__ PIPs S__ T__ S__ T__ 1st CMCs S__ T___ S__ T__ Wrists S__ T___ S__ T__ Elbows S__ T___ S__ T__ Shoulders S__ T___ S__ T__ Knees S__ T___ S__ T__ Ankles S__ T___ S__ T__ MTPs S__ T___ S__ T__ Loss of motion: none Pain on motion: none Misalignment / Deformity: none Osteophytes: none Nodules: none Tender 28 Joint Count: 0 Swollen 28 Joint Count: 0 Pain (0-10): 7.0 Pt Global (0-10): 3.0 Functional Status (0-10): 1.0 Rapid3 (0-30): 11.0 In all four limbs, joints otherwise without swelling, tenderness, warmth, erythema, loss of motion, pain on motion, misalignment, deformity or instability. IMPRESSIONS: 1. HLA-B27 arthritis that is well controlled on just 7.5 mg of methotrexate weekly with (thankfully) no recurrence of genital warts. PLANS: 1. Continue methotrexate at current dose 2. Continue to check a CBC, ALT, and creatinine once every 3 months. 3. I reassured him that at his age and in the absence of other risk factors a bone density test is not necessary, as the likelihood that we would find BMD low enough to warrant a change in therapy is very low. 4. I have told him that in the absence of more specific symptoms of testosterone deficiency that I cannot see that a testerone serum level should be checked. 5. See me back in 1 year. AGE OPERATOR documented in this encounter Plan of Treatment Not on file documented as of this encounter Visit Diagnoses Not on filedocumented in this encounter
--- OUTSIDE RECORDS SUMMARY | 2024-11-12 14:16 | XMS_ITS | Encounter Summary ---
Author Organization [employer] Address [address] [place] [address] Care Team Providers Care Intranet Developer Name Role Phone Unavailable Primary Care Provider Unavailabl e Reason for Visit * Reason Comments Recheck Encounter Details Date Type Department Care Team (Late st Contact Info) Description 04/20/2012 10:45 AM CDT Office Visit Rheumatology at [place] [address] [place] [address]. [place] [address] Ronak Mosley MD [address] [place] [address] [phone] Other specified arthropathy, multiple sites; Encounter for long-term (current) use of other medications Social History Tobacco Use Types Packs/Day Years Used Date Smoking Tobacco: Never Assessed Sex and Gender Information Value Date Recorded Sex Assigned at Not on file Gender Identity Not on file Sexual Orientation Not on file documented as of this encounter Last Filed Vital Signs Vital Sign Reading Time Taken Comments Blood Pressure 141/85 04/20/2012 10:48 AM CDT Pulse 65 04/20/2012 10:48 AM CDT Temperature - - Respiratory Rate - - Oxygen Saturation - - Inhaled Oxygen Concentration - - Weight 80.3 kg (177 lb) 04/20/2012 10:48 AM CDT Height - - Body Mass Index 24.01 03/26/2009 2:31 PM CDT documented in this encounter Progress Notes * Ronak Mosley MD - 04/20/2012 1:11 PM CDT RHEUMATOLOGY CLINIC FOLLOW-UP VISIT SUBJECTIVE: 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 Overall he is doingpretty well. We treated his chest wall pain with a burst of prednisone and his symptoms promptly resolved. He continues on methotrexate 10 mg once weekly, and he is not experiencing any current side effects to this. Otherwise, no increased visible joint swelling, visible redness, or palpable joint warmth. Otherwise, denies any increased cough, shortness of breath, mouth sores, swollen glands, fevers, recurrent infections Current outpatient prescriptions:folic acid 1 mg tablet, Take 1 tablet by mouth daily (every 24 hours)., Disp: 90, Rfl: 5; methotrexate 2.5 mg tablet, Take 4 tablets by mouth once a week., Disp: 52 tablet, Rfl: 03; DISCONTD: op medications reviewed, , Disp: , Rfl: DISCONTD: predniSONE (DELTASONE) 5 mg tablet, Take as instructed. 4 tabs daily x 5 days, then 3 tabs daily x 5 days, then 2 tabs daily x 5 days, then 1 tab daily x 5 days, Disp: 50 tablet, Rfl: 1 Review of systems positive for: nil else Rest of review of systems is unremarkable according to the Follow-Up Rheumatology Problem Review Questionnaire OBJECTIVE: Vital signs are as noted below MUSCULOSKELETAL: Joints Right Left MCP???s S__ T__ S__ T__ PIP???s S_1_ T__ S__ T__ 1st CMC???s S__ T___ [...] Joint Count: 0 Swollen 28 Joint Count: 1 Pain, Pt Global, BLAS-II, and PAS-II scores [...] Serum 1.0 01/13/2011 15:03 IMPRESSIONS: 1. HLA-B27 arthropathy,overall doing very well. PLANS: 1. Continue methotrexate 10 mg once weekly. 2. Check CBC, ALT, once every 3 months and creatinine once every 6 months 3. See me back in 6 months documented in this encounter Plan of Treatment Not on file documented as of this encounter Visit Diagnoses Diagnosis Other specified arthropathy, multiple sites Encounter for long-term (current) use of other medications documented in this encounter
--- OUTSIDE RECORDS SUMMARY | 2024-11-12 14:16 | XMS_ITS | Encounter Summary ---
Author Organization [employer] Address [address] [address] Care Team Providers Care Mechanical Intern Name Role Phone Unavailable Primary Care Provider Unavailabl e Encounter Details Date Type Department Care Team (Late st Contact Info) Description 10/25/2013 11:40 AM LOCATION WORKER Lab Visit [place] [address] [place] [address]. [place] [address] Encounter for long-term (current) use of other medications; Other specified arthropathy, multiple sites Social History Tobacco Use Types Packs/Day Years Used Date Smoking Tobacco: Never Assessed Sex and Gender Information Value Date Recorded Sex Assigned at Not on file Gender Identity Not on file Sexual Orientation Not on file documented as of this encounter Plan of Treatment Not on file documented as of this encounter Procedures Procedure Name Priority Date/Time Associated Diagnosis Comments ALT (SGPT) Routine 10/25/2013 11:36 AM LOCATION WORKER Encounter for long-term (current) use of other medications Other specified arthropathy, multiple sites documented in this encounter Results * ALT (SGPT) (10/25/2013 11:36 AM LOCATION WORKER) Alanine Aminotransferase 22 4 - 55 U/L HP CONVERSION 10/25/2013 11:3 6 AM LOCATION WORKER 10/25/2013 11:36 AM LOCATION WORKER Narrative HP CONVERSION - 10/25/2013 12:14 PM LOCATION WORKER Performed at [facility], [address] [place] [address] [place] [address] Ronak Mosley MD LAB_1 HP CONVERSION documented in this encounter Visit Diagnoses Diagnosis Encounter for long-term (current) use of other medications Other specified arthropathy, multiple sites documented in this encounter
--- OUTSIDE RECORDS SUMMARY | 2024-11-12 14:16 | XMS_ITS | Encounter Summary ---
Author Organization [employer] Address [address] [address] Care Team Providers Care Fiberglass Fabricator Name Role Phone Unavailable Primary Care Provider Unavailabl e Reason for Visit * Reason Comments Refill Encounter Details Date Type Department Care Team (Late st Contact Info) Description 08/12/2013 Refill Rheumatology at [place] [address] [place] [address]. [place] [address] Laura Hedrick MD [address] [place] [address] [phone] Refill Social History Tobacco Use Types Packs/Day Years Used Date Smoking Tobacco: Never Assessed Sex and Gender Information Value Date Recorded Sex Assigned at Not on file Gender Identity Not on file Sexual Orientation Not on file documented as of this encounter Nursing Notes * Caroline Calloway V - 08/12/2013 3:56 PM CDT Creatinine 6-4-13 WNL CBC 6-4-13 WNL ALT 6-4-13 WNL Requested Prescriptions Signed Prescriptions Disp Refills ??? methotrexate 2.5 mg tablet 48 tablet 0 Sig: Take 4 tablets by mouth once a week. Remind patient that routine blood tests are needed. Authorizing Provider: LAURA HEDRICK Ordering User: CAROLINE CALLOWAY V * Mercedes Hurley - 08/12/2013 2:23 PM CDT last appt 12-26-12; next appt 10-25-13 documented in this encounter Plan of Treatment Not on file documented as of this encounter Visit Diagnoses Not on filedocumented in this encounter
--- OUTSIDE RECORDS SUMMARY | 2024-11-12 14:16 | XMS_ITS | Encounter Summary ---
Author Organization [employer] Address [address] [address] Care Team Providers Care Animal Care Assistant Name Role Phone Unavailable Primary Care Provider Unavailabl e Reason for Visit * Reason Comments Medication Questions Encounter Details Date Type Department Care Team (Late st Contact Info) Description 06/11/2014 Telephone Rheumatology at [place] [address] [place] [address]. [place] [address] [place] [address] [place] [address] [phone] Medication Questions Social History Tobacco Use Types Packs/Day Years Used Date Smoking Tobacco: Never Assessed Sex and Gender Information Value Date Recorded Sex Assigned at Not on file Gender Identity Not on file Sexual Orientation Not on file documented as of this encounter Nursing Notes * Neli Chavez CMA - 06/12/2014 9:34 AM CDT Pt given information and verbalized understanding. Pt states that he spoke with his dentist yesterday and his dentist recommends he stay on the methotrexate. * Neli Chavez CMA - 06/12/2014 9:17 AM CDT Left message for Pt to call back * Kae Callahan PA-C - 06/11/2014 2:55 PM CDT Please tell him that it may not matter either way on such a low dose but he can surely stop the methotrexate for a week until he has been on the antibiotic for a week and then resume next week. * Garima Muir LPN - 06/11/2014 2:20 PM CDT JTS pt Patient is on low dose Methotrexate 10mg weekly, and recently developed an abcess tooth. He will begoing to the dentist tomorrow, and was also started on Amoxicillin. Vinh would like to know if he should hold his Methotrexate for the time being, or is it ok for him to continue taking? Please advise. documented in this encounter Plan of Treatment Not on file documented as of this encounter Visit Diagnoses Not on filedocumented in this encounter
--- OUTSIDE RECORDS SUMMARY | 2024-11-12 14:16 | XMS_ITS | Encounter Summary ---
Author Organization [employer] Address [address] [place] [address] Care Team Providers Care Meter Setter Name Role Phone Unavailable Primary Care Provider Unavailabl e Reason for Visit * Reason Comments Follow-up Encounter Details Date Type Department Care Team (Late st Contact Info) Description 10/25/2013 11:00 AM ABSEILING INSTRUCTOR Office Visit Rheumatology at [address] [place] [address] Ronak Mosley MD [address] [place] [address] [phone] Encounter for long-term (current) use of other medications (Primary Dx); Other specified arthropathy, multiple sites Social History Tobacco Use Types Packs/Day Years Used Date Smoking Tobacco: Never Assessed Sex and Gender Information Value Date Recorded Sex Assigned at Not on file Gender Identity Not on file Sexual Orientation Not on file documented as of this encounter Last Filed Vital Signs Vital Sign Reading Time Taken Comments Blood Pressure 160/93 10/25/2013 10:54 AM ABSEILING INSTRUCTOR Pulse 68 10/25/2013 10:54 AM ABSEILING INSTRUCTOR Temperature - - Respiratory Rate - - Oxygen Saturation - - Inhaled Oxygen Concentration - - Weight 81 kg (178 lb 8 oz) 10/25/2013 10:[address] Height - - Body Mass Index 24.21 03/26/2009 2:31 PM CDT documented in this encounter Patient Instructions * Patient Instructions* Ronak Mosley MD - 10/25/2013 11:19 AM ABSEILING INSTRUCTOR Thank you for enrolling in [employer]. Please follow the instructions below to securely access your online medical record. [employer] allows you to send messages to your doctor, view your test results, renew your prescriptions, schedule appointments, and more. How Do I Sign Up? 1. In your Internet browser, go to: [email or web address] 2. Click on the Enter Activation Code link under the New User? section. You will see the New MemberSign Up page. 3. Enter your [employer] Activation Code exactly as it appears below. You will not need to use this code after you???ve completed the sign-up process. If you do not sign up before the expiration date, you must request a new code. [employer] Activation Code: [email or web address] Expires: 11/24/2013 11:19 AM 4. Enter the last four digits of your Social Security Number ([id number]) and Date of (mm/dd/yyyy) as indicated and click Next. You will be taken to the next sign-up page. 5. Create a [employer] ID. This will be your [employer] login ID and cannot be changed, so think of one that is secure and easy to remember. 6. Create a [employer] password. You can change your password at any time. 7. Enter your Security Question and Answer. This can be used at a later time if you forget your password. Click Next. 8. Enter your e-mail address. You will receive e-mail notification when new information is available in [employer]. 9. Click Sign In. You can now view your medical record. Additional Information If you have questions, you can call [phone] to talk to our [employer] staff. Remember, [employer] isNOT to be used for urgent needs. For medical emergencies, dial 911. 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 We gave a glucocorticoid injection in his left knee and that was somewhat helpful. He saw a physicaltherapist in [place] who advised he wear a soft knee brace to stabilize his patella. He wears this when he runs, and he has less knee pain when he does so (even with a 4 mile run). He continues on methotrexate 10 mg all in one does once weekly and tolerates this without noticeable side effects. Otherwise, no increased [...] (every 24 hours)., Disp: 90 tablet, Rfl: 3 ketoprofen 20% topical gel, Apply topically 3 times daily as needed for Pain. 60g:Ketoprofen [id number] grams+Ethoxy diglycol 0.6ml+Lipoil 14.4ml+Polox Gel 33ml, Disp: 60 g, Rfl: 3; ketoprofen 20% topical gel, Apply topically 3 times daily as needed for Pain. Ketoprofen powder 12 grams+Ethoxy diglycol 0.6ml+Lipoil 14.4ml+Polox Gel 33ml, Disp: 60 g, Rfl: 12 methotrexate 2.5 mg tablet, Take 4 tablets by mouth once a week. Remind patient that routine blood tests are needed., Disp: 48 tablet, Rfl: 0; OXYGEN-AIR DELIVERY SYSTEMS (HORIZON NASAL CPAP SYSTEM [...] Value Date/Time Alanine Aminotransferase 23 01/13/2011 1503 Lab Results Component Value Date/Time Creatinine Serum 1.0 01/13/2011 1503 CBC drawn in [place] yesterday looks fine IMPRESSIONS: 1. 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 2. Knee pain that at least in part represents patellofemoral arthralgia PLANS: 1. Continue methotrexate in its current dose 2. ALT here today. 3. Check CBC, ALT, once every 3 months and creatinine once every 6 month, orders written for [place] 4. I have encouraged him to continue using the soft knee brace when he runs 5. See me back in 1 year. ILING INSTRUCTOR documented in this encounter Plan of Treatment Not on file documented as of this encounter Visit Diagnoses Diagnosis Encounter for long-term (current) use of other medications- Primary Other specified arthropathy, multiple sites documented in this encounter
--- OUTSIDE RECORDS SUMMARY | 2024-11-12 14:16 | XMS_ITS | Encounter Summary ---
Author Organization [employer] Address [address] [address] Care Team Providers Care Paster Supervisor Name Role Phone Unavailable Primary Care Provider Unavailabl e Reason for Visit * Reason Comments Refill Encounter Details Date Type Department Care Team (Late st Contact Info) Description 07/17/2014 Refill Rheumatology at [address] [place] [address] Ronak Mosley MD [address] [place] [address] [phone] Refill Social History Tobacco Use Types Packs/Day Years Used Date Smoking Tobacco: Never Assessed Sex and Gender Information Value Date Recorded Sex Assigned at Not on file Gender Identity Not on file Sexual Orientation Not on file documented as of this encounter Nursing Notes * Neli Chavez CMA - 07/17/2014 3:30 PM CDT JTS Pt * Lesley Granados - 07/17/2014 9:49 AM CDT Last visit: 10/25/13 Future visit: None Last fill: 04/18/14 documented in this encounter Plan of Treatment Not on file documented as of this encounter Visit Diagnoses Not on filedocumented in this encounter
--- OUTSIDE RECORDS SUMMARY | 2024-11-12 14:16 | XMS_ITS | Encounter Summary ---
Author Organization [employer] Address [address] [address] Care Team Providers Care Adjunct Instructor In Economics Name Role Phone Unavailable Primary Care Provider Unavailabl e Encounter Details Date Type Department Care Team (Late st Contact Info) Description 01/13/2011 PN Conversion Only ROOM INSPECTOR [address] [place] [address] Ronak Mosley MD [address] [place] [phone] Social History Tobacco Use Types Packs/Day Years [...] Associated Diagnosis Comments CREATININE / GFR Routine 01/13/2011 3:03 PM PANEL SEWER COMPLETE BLOOD COUNT-W/DIFF Routine 01/13/2011 3:03 PM PANEL SEWER DIFFERENTIAL Routine 01/13/2011 3:03 PM PANEL SEWER ALT (SGPT) Routine 01/13/2011 3:03 PM PANEL SEWER documented in this encounter Results * Differential (01/13/2011 3:03 PM PANEL SEWER) Absolute Neutrophils 3.4 1.8 - 8.0 k/cmm HP CONVERSION Absolute Lymphocytes 1.3 1.1 - 4.0 k/cmm HP CONVERSION Absolute Monocytes 0.4 0.2 - 0.8 k/cmm HP CONVERSION Absolute Eosinophils 0.1 0.0 - 0.5 k/cmm HP CONVERSION Absolute Basophils 0.0 0.0 - 0.2 k/cmm HP CONVERSION 01/13/2011 3:03 PM PANEL SEWER Ronak Mosley MD LAB_1 HP CONVERSION * Hemogram/Plts/Diff (01/13/2011 3:03 PM PANEL SEWER) White Blood Cell Count 5.2 3.8 - 11.0 k/cmm HP CONVERSION Red Blood Cell Count 4.82 4.20 - 5.90 m/cmm HP CONVERSION Hemoglobin 15.9 13.4 - 17.5 g/dL HP CONVERSION Hematocrit 46.5 39.0 - 51.0 % HP CONVERSION Mean Corpuscular Volume 96.4 80.0 - 100.0 fL HP CONVERSION RDW 12.4 11.0 - 15.0 % HP CONVERSION Platelet Count 197 140 - 450 k/cmm HP CONVERSION 01/13/2011 3:0 3 PM PANEL SEWER Ronak Mosley MD LAB_1 Performing Organization Address [facility]/ZIP Co de Phone Number HP CONVERSION * Creatinine / GFR (01/13/2011 3:03 PM PANEL SEWER) Creatinine Serum 1.0 0.4 - 1.3 mg/dL HP CONVERSION Est GFR Am >60 >60 mL/min/1.7 HP CONVERSION Est GFR Non-Afr Am >60 >60 mL/min/1.7 HP CONVERSION Comment: Normal>60, moderate decrease 30 - 59, severe decrease 15 - 29, renal failure <15 mL/min/1.73 m2 NOTE: Choose the eGFR result above appropriate for the race of the patient. 01/13/2011 3:03 PM PANEL SEWER Ronak Mosley MD LAB_1 Performing Organization Address [facility] Co de Phone Number HP CONVERSION * ALT (SGPT) (01/13/2011 3:03 PM PANEL SEWER) Alanine Aminotransferase 23 4 - 55 U/L HP CONVERSION 01/13/2011 3:03 PM PANEL SEWER Ronak Mosley MD LAB_1 Performing Organization Address [facility] de Phone Number HP CONVERSION documented in this encounter Visit Diagnoses Not on filedocumented in this encounter
--- OUTSIDE RECORDS SUMMARY | 2024-11-12 14:16 | XMS_ITS | Encounter Summary ---
Author Organization [employer] Address [address] [address] Care Team Providers Care Physical Therapy Assistant Instructor Name Role Phone Unavailable Primary Care Provider Unavailabl e Reason for Visit * Reason Comments Refill Encounter Details Date Type Department Care Team (Late st Contact Info) Description 06/11/2013 Refill Rheumatology at [address] [place] [address] Ronak Mosley MD [address] [place] [address] [phone] Refill Social History Tobacco Use Types Packs/Day Years Used Date Smoking Tobacco: Never Assessed Sex and Gender Information Value Date Recorded Sex Assigned at Not on file Gender Identity Not on file Sexual Orientation Not on file documented as of this encounter Nursing Notes * Neli Chavez CMA - 06/13/2013 10:47 AM CDT Pt given information and verbalized understanding. pt states he will have lab fax the results to PN. pt states that he did have them done. * Neli Chavez CMA - 06/13/2013 10:01 AM CDT left message for pt to call back * Ronak Mosley MD - 06/12/2013 4:31 PM CDT Script sent, but patient has not had labs since October of 2012. Please ask that he get in and getCBC, ALT, creatinine SEVERO * Artur Navarrete - 06/11/2013 12:31 PM CDT Lab Results Component Value Date/Time Alanine Aminotransferase 23 01/13/2011 1503 Lab Results Component Value Date/Time White Blood Cell Count 5.2 01/13/2011 1503 Red Blood Cell Count 4.82 01/13/2011 1503 Hemoglobin 15.9 01/13/2011 1503 Hematocrit 46.5 01/13/2011 1503 Mean Corpuscular Volume 96.4 01/13/2011 1503 RDW 12.4 01/13/2011 1503 Platelet Count 197 01/13/2011 1503 Lab Results Component Value Date/Time Creatinine Serum 1.0 01/13/2011 1503 * Mercedes Hurley - 06/11/2013 12:19 PM CDT last appt 12-26-12; next appt 10-25-13 documented in this encounter Plan of Treatment Not on file documented as of this encounter Visit Diagnoses Not on filedocumented in this encounter
--- OUTSIDE RECORDS SUMMARY | 2024-11-12 14:16 | XMS_ITS | Encounter Summary ---
Author Organization [employer] Address [address] [place] [address] Care Team Providers Care Financial Recording Clerk Name Role Phone Unavailable Primary Care Provider Unavailabl e Reason for Visit * Reason Comments Follow-up Encounter Details Date Type Department Care Team (Late st Contact Info) Description 11/09/2016 4:00 PM ENROLLMENT MANAGEMENT DIRECTOR Office Visit Rheumatology at [place] [address] [place] [address]. [place] [address] Ronak Mosley MD [address] [place] [address] [phone] HLA B27 (HLA B27 positive) (Primary Dx); High risk medication use Social [...] Sign Reading Time Taken Comments Blood Pressure 131/87 11/09/2016 3:56 PM ENROLLMENT MANAGEMENT DIRECTOR Pulse 70 11/09/2016 3:56 PM ENROLLMENT MANAGEMENT DIRECTOR Temperature - - Respiratory Rate - - Oxygen Saturation - - Inhaled Oxygen Concentration - - Weight 85.7 kg (189 lb) 11/09/2016 3:56 PM ENROLLMENT MANAGEMENT DIRECTOR Height - - Body Mass Index 25.63 03/26/2009 2:31 PM CDT documented in this encounter Progress Notes * Ronak Mosley MD - 11/09/2016 4:07 PM CST RHEUMATOLOGY CLINIC FOLLOW-UP VISIT SUBJECTIVE: Vinh Guillen returns for follow-up regarding HLA-B27 arthritis, iritis, and left knee pain. Overall he continues to do well on methotrexate 10 mg once weekly. He is virtually asymptomatic. He has had no episodes ov uveitis over the past year. He has developed modest plantar heel pain right more than left. However he has been able to pick recreational racquetball and he can do this without making his foot pain particularly worse. Otherwise, no increased visible joint swelling, visible redness, or palpable joint warmth. Otherwise, denies any increased cough, shortness of breath, mouth sores, swollen glands, fevers, recurrent infections Outpatient Prescriptions as of 11/09/2016: amLODIPine (NORVASC) 10 MG tablet Note (11/09/2016): Received from: External Pharmacy Disp: Rfl: 3 fluticasone (AKA FLONASE) 50 MCG/ACT nasal solution Place 2 sprays into each nostril daily (every 24 hours). Dose is for each nostril. Disp: Rfl: folic acid 1 MG tablet Take 1 tablet by mouth daily (every 24 hours). Disp: 90 tablet Rfl: 3 Methotrexate, Anti-Rheumatic, (RHEUMATREX) 2.5 MG tablet Take 4 Tabs by mouth once a week. Indications: PN: Disp: 48 Tab Rfl: 3 No current facility-administered medications on file as of 11/09/2016. Review of systems positive for: nil else [...] Pain on motion: none Misalignment / Deformity: slight hallux valgus bilateral Osteophytes: none Nodules: none Tender 28 Joint Count: 0 Swollen 28 Joint Count: 0 Pain, Pt Global, MDHAQ, and RAPID3 scores in Rapid-3 flowsheet Pain: 0 Patient Global: 2 MDHAQ: 0.2 Rapid3: 2.3 In all four limbs, joints otherwise without swelling, tenderness, warmth, erythema, loss of motion,pain on motion, misalignment, deformity or instability. Most recent pertinent laboratory studies; Lab Results Component Value Date/Time EXT RSLT - WBC 4.0* 07/15/2016 WHITE BLOOD CELL COUNT 5.6 11/11/2015 1610 EXT RSLT - RBC 4.36 01/24/2013 2242 RED BLOOD CELL COUNT 4.64 11/11/2015 1610 EXT RSLT - HGB 14.7 07/15/2016 HEMOGLOBIN 12.1* 11/11/2015 1610 HEMATOCRIT 38.7* 11/11/2015 1610 MEAN CORPUSCULAR VOLUME 83.4 11/11/2015 1610 RDW 16.6* 11/11/2015 1610 EXT RSLT - PLT COUNT 198 07/15/2016 PLATELET COUNT 252 11/11/2015 1610 Lab Results Component Value Date/Time ALANINE AMINOTRANSFERASE 27 11/11/2015 1610 EXT RSLT - ALT 22 07/15/2016 Lab Results Component Value Date/Time CREATININE SERUM 1.17 11/11/2015 1610 EXT RSLT - CREATININE 1.0 07/15/2016 IMPRESSIONS: 1. HLA-B27 arthritis, in remission on very low dose methotrexate 2. Mild plantar fasciitis PLANS: After discussing current mutually agreed on goals for our therapeutic interventions, we mutually agreed to do the following; 1. Continue on methotrexate at current dose 2. Check CBC, ALT, and creatinine once every 3 months, including today 3. Updated letter dictated for the FAA 4. See me back in one year LLMENT MANAGEMENT DIRECTOR documented in this encounter Miscellaneous Notes * Letter - Ronak Mosley MD - 11/09/2016 4:56 PM CST November 09, 2016 [employer] Fax No: [phone] RE:Vinh Guillen :1955 To Whom It May Concern: Mr. Guillen is a gentleman whom I have been treating for HLA B27 arthritis for several years. His arthritis remains very well controlled on methotrexate, a low dose of 10 mg orally 1 day each week. I last saw him for review today, November 09, 2016. He has no swollen or tender joints, loss of motion, or pain in motion in any of his joints, or misalignment or deformity in any significant way. His arthritis is essentially in remission on his current regimen. He is having no side effects from methotrexate or any of his other medications. I think he is physically and medically unimpaired from his medications or from his arthritis. His prognosis remains excellent. Should you have any questions or concerns, please feel free to contact me. Sincerely, Ronak Mosley MD [facility] DEPARTMENT OF RHEUMATOLOGY CONFIRM #: [phone] LLMENT MANAGEMENT DIRECTOR documented in this encounter Plan of Treatment Not on file documented as of this encounter Results * CREAT - Creatinine (11/09/2016 4:38 PM ENROLLMENT MANAGEMENT DIRECTOR) Creatinine Serum 1.00 0.73 - 1.18 mg/dL PN SOFT Est GFR Am >60 >60 mL/min/1.7 3m2 PN SOFT Est GFR Non-Afr Am >60 >60 mL/min/1.7 3m2 PN SOFT Comment: Normal>60, moderate decrease 30 - 59, severe decrease 15 - 29, renal failure <15 mL/min/1.73 m2 NOTE: Choose the eGFR result above appropriate for the race of the patient. 11/09/2016 4:38 PM ENROLLMENT MANAGEMENT DIRECTOR 11/09/2016 4:38 PM ENROLLMENT MANAGEMENT DIRECTOR Narrative PN SOFT - 11/09/2016 4:56 PM ENROLLMENT MANAGEMENT DIRECTOR Performed at [facility], [address] [place] [address] CLIA number [id number] Ronak Mosley MD LAB_1 Performing Organization Address [facility] de Phone Number PN SOFT [address] [place] [address] * ALT - Alanine Aminotransferase (11/09/2016 4:38 PM ENROLLMENT MANAGEMENT DIRECTOR) Alanine Aminotransferase 19 9 - 55 U/L PN SOFT 11/09/2016 4:38 PM ENROLLMENT MANAGEMENT DIRECTOR 11/09/2016 4:38 PM ENROLLMENT MANAGEMENT DIRECTOR Narrative PN SOFT - 11/09/2016 4:56 PM ENROLLMENT MANAGEMENT [place] [address] CLIA number [id number] Ronak Mosley MD LAB_1 Performing Organization Address [facility] de Phone Number PN SOFT [address] [place] [address] * CBC - Complete Blood Count W/Diff (11/09/2016 4:38 PM ENROLLMENT MANAGEMENT DIRECTOR) White Blood Cell Count 5.2 3.8 - [...] 450 k/cmm PN SOFT 11/09/2016 4:38 PM ENROLLMENT MANAGEMENT DIRECTOR 11/09/2016 4:38 PM ENROLLMENT MANAGEMENT DIRECTOR Narrative PN SOFT - 11/09/2016 4:42 PM ENROLLMENT MANAGEMENT DIRECTOR Performed at [facility], [address] [place], [place] [address] CLIA number [id number] Ronak Mosley MD LAB_1 Performing Organization Address [facility] de Phone Number PN SOFT [address] [place] [address] documented in this encounter Visit Diagnoses Diagnosis HLA B27 (HLA B27 positive)- Primary Genetic susceptibility to other disease High risk medication use Encounter for long-term (current) use of other medications 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
--- OUTSIDE RECORDS SUMMARY | 2024-11-12 14:16 | XMS_ITS | Encounter Summary ---
Author Organization [employer] Address [address], [place] [address] Care Team Providers Care Telephone Maintainer Name Role Phone Unavailable Primary Care Provider Unavailabl e Reason for Visit * Reason Onset Date Comments Refill 08/23/2016 Encounter Details Date Type Department Care Team (Late st Contact Info) Description 08/23/2016 Telephone Rheumatology at [place] [address] [place] [address]. [place] [address] Ronak Mosley MD [address] [place] [address] [phone] Refill Social History Tobacco Use Types Packs/Day Years Used Date Smoking Tobacco: Former Smokeless Tobacco: Former Quit: 11/12/1985 Comments:Quit smoking: Sex and Gender Information Value Date Recorded Sex Assigned at Not on file Gender Identity Not on file Sexual Orientation Not on file documented as of this encounter Nursing Notes * Kaela Bernardo - 08/24/2016 3:23 PM CDT Spoke with pt given this information and verbalized understanding. * Ronak Mosley MD - 08/24/2016 3:16 PM CDT Script sent, please let him know his labs look fine. His white blood cell count is slightly low butis not a worry at its current level. * Jan Camacho LPN - 08/23/2016 9:26 AM CDT EXT RSLT - HGB (g/dL) Date Value 04/12/2016 13.5 01/15/2016 12.7* 08/27/2014 12.4* HEMOGLOBIN Date Value 11/11/2015 12.1 g/dL* 01/13/2011 15.9 g/dL 01/01/2010 12.9 gm/dL* EXT RSLT - WBC (thou/cu mm) Date Value 04/12/2016 8.4 01/15/2016 5.0 08/27/2014 4.4* WHITE BLOOD CELL COUNT (k/cmm) Date Value 11/11/2015 5.6 01/13/2011 5.2 01/01/2010 4.6 CREATININE SERUM (mg/dL) Date Value 11/11/2015 1.17 EXT RSLT - CREATININE (mg/dL) Date Value 04/12/2016 0.9 ALANINE AMINOTRANSFERASE (U/L) Date Value 11/11/2015 27 EXT RSLT - ALT (IU/L) Date Value 04/12/2016 18 Called PT to remind him he is overdue for labs. Pt says he recently got labs done at [facility]. He will be calling them to fax over new lab results today. * Lesley Granados - 08/23/2016 8:33 AM CDT Last visit: 11/11/15 Future visit: 11/09/16 Last fill: 08/18/16 documented in this encounter Plan of Treatment Not on file documented as of this encounter Visit Diagnoses Not on filedocumented in this encounter
--- OUTSIDE RECORDS SUMMARY | 2024-11-12 14:16 | XMS_ITS | Encounter Summary ---
Author Organization [employer] Address [address], [place] [address] Care Team Providers Care Doorkeeper Name Role Phone Unavailable Primary Care Provider Unavailabl e Reason for Visit * Reason Comments Refill Encounter Details Date Type Department Care Team (Late st Contact Info) Description 10/31/2014 Refill Rheumatology at [address] [place] [address] Ronak Mosley MD [address] [place] [address] [phone] Refill Social History Tobacco Use Types Packs/Day Years Used Date Smoking Tobacco: Never Assessed Sex and Gender Information Value Date Recorded Sex Assigned at Not on file Gender Identity Not on file Sexual Orientation Not on file documented as of this encounter Nursing Notes * Pam Strong, RN - 10/31/2014 12:49 PM CST Renewed medication per medication refill protocol. Component Latest Ref Rng 08/27/2014 EXT RSLT - ALT 8-45 IU/L 21 EXT RSLT - CREATININE 0.72-1.25 mg/dL 0.8 EXT RSLT - WBC 4.5-11.0 thou/cu mm 4.4 (L) EXT RSLT - HGB 13.5-17.5 g/dL 12.4 (L) EXT RSLT - PLT COUNT 140-440 thou/cu mm 180 OR WINDOWS SYSTEMS ADMINISTRATOR * Alexis Hein - 10/31/2014 10:26 AM CST Last appt; 10/25/13, Next: 11/12/14 OR WINDOWS SYSTEMS ADMINISTRATOR documented in this encounter Plan of Treatment Not on file documented as of this encounter Visit Diagnoses Not on filedocumented in this encounter
--- OUTSIDE RECORDS SUMMARY | 2024-11-12 14:17 | XMS_ITS | Encounter Summary ---
Author Organization [employer] Address [address] [place] [address] Care Team Providers Care Rotary Peel Oven Tender Name Role Phone Unavailable Primary Care Provider Unavailabl e Encounter Details Date Type Department Care Team (Late st Contact Info) Description 11/20/2008 [facility] [address] [address] Kevon Cohn MD [address] [place] [address] Social History Tobacco Use Types Packs/Day Years [...]
--- OUTSIDE RECORDS SUMMARY | 2024-11-12 14:17 | XMS_ITS | Encounter Summary ---
Author Organization [employer] Address [address], [place] [address] Care Team Providers Care Ultimate Hoops Scoreboard Operator Name Role Phone Unavailable Primary Care Provider Unavailabl e Reason for Visit * Reason Comments Other Encounter Details Date Type Department Care Team (Late st Contact Info) Description 01/22/2010 Telephone Rheumatology at [place] [address] [place] [address]. [place] [address] Center, Message Other Social History Tobacco Use Types Packs/Day Years Used Date Smoking Tobacco: Never Assessed Sex and Gender Information Value Date Recorded Sex Assigned at Not on file Gender Identity Not on file Sexual Orientation Not on file documented as of this encounter Progress Notes * Center, Message - 01/22/2010 10:49 AM CST Phone Note filed by [employer] at 03/05/11213 Author: [facility] Service: (none) Author Type: (none) Filed: 03/05/11213 Note Time: 01/22/10 1049 Status: Signed Employee Relation Manager: [employer] (Resource) Medication Question Please review question below and advise pharmacy appropriately. Drug Name/Strength:Methotrexate 2.5MG Tab Sig/Quantity:4 tabs once per week for 2 weeks, then 6 tabs once weekly thereafter; #24 Question:Pharmacy faxed stating patient needs 53 more pills to finish tapering off per Dr's instructions Pharmacy Seq #:[id number] Pharmacy Name-Phone/Fax #:[facility] [phone]/City:[address] Clinician Name:Dimitri *ECODE~PNRXQ Created on 22Jan2010 10:49am by MICHAEL PENALOZA On 22Jan2010 10:59am BRAYAN SHEARER wrote: ok for #53 tabs with instructions to taper as directed. Acknowledged by BRAYAN SHERAER on 10:59am On 22Jan2010 11:39am HAILEY WISE wrote: I faxed the prescription to the pharmacy. RING DRIVER documented in this encounter Plan of Treatment Not on file documented as of this encounter Visit Diagnoses Not on filedocumented in this encounter
--- OUTSIDE RECORDS SUMMARY | 2024-11-12 14:17 | XMS_ITS | Encounter Summary ---
Author Organization [facility] Address [address] [address] Care Team Providers Care Beef Cattle Farm Manager Name Role Phone Unavailable Primary Care Provider Unavailabl e Encounter Details Date Type Department Care Team (Late st Contact Info) Description 12/27/2007 Office Visit Rheumatology at [place] [address] [place] [address]. [place] [address] Laura Hedrick MD [address] [place] [address] [phone] Social History Tobacco Use Types Packs/Day Years Used Date Smoking Tobacco: Never Assessed Sex and Gender Information Value Date Recorded Sex Assigned at Not on file Gender Identity Not on file Sexual Orientation Not on file documented as of this encounter Last Filed Vital Signs Vital Sign Reading Time Taken Comments Blood Pressure 134/90 12/27/2007 12:50 PM FURNITURE REMOVALIST'S ASSISTANT Pulse - - Temperature - - Respiratory Rate - - Oxygen Saturation - - Inhaled Oxygen Concentration - - Weight 84.8 kg (186 lb 15.9 oz) 008 12:50 PM FURNITURE REMOVALIST'S ASSISTANT C: 84.8kg Height 181.9 cm (5' 11.62) 12/27/2007 12:50 PM FURNITURE REMOVALIST'S ASSISTANT C: 181.9cm Body Mass Index 25.63 12/27/2007 12:50 PM FURNITURE REMOVALIST'S ASSISTANT documented in this encounter Progress Notes * Laura Hedrick MD - 12/27/2007 12:01 AM CST Progress Notes signed by Laura Hedrick MD at 12/31/07 0704 Author: Laura Hedirck MD Service: (none) Author Type: Physician Filed: 03/05/11 0054 Note Time: 12/27/07 0001 Status: Signed Excavating Machine Operator: Laura Hedrick MD (Physician) NAME: GIOVANA CARRERA MR#: [id number] ACCT: [id number] VISIT: [id number] DICTATING CLINICIAN: LAURA HEDRICK MD JOB: [id number] LOC: 421 CLINIC PROGRESS NOTE DATE OF VISIT: 12/27/2007 SUBJECTIVE: Mr. Carrera is a 52-year-old gentleman, whom I am seeing in consultation today on account of a prior diagnosis of ankylosing spondylitis and substantial anterior knee discomfort over the last couple of months. The discomfort in the anterior aspect of his knees began around Christmastime, perhaps just a little bit before, a couple of months ago. For a good while, he was having substantial pain and discomfort, such that he could not get up from a squat on the floor. He would have to roll over to get himself up. Bending has been significantly painful for him. Ibuprofen, even at a dose of 800 mg three times a day has not been sufficiently helpful for him. The discomfort has eased off somewhat. He still does feel pain and discomfort, but at least now he can get around with usual activities, even ran about 4 miles a few days ago and managed to do okay with that. He otherwise has not noted any observable joint swelling, palpable joint warmth, observable redness. He is having some discomfort in the middle of his back between his shoulder blades. Will occasionally have some discomfort on inspiration in his chest. Is not having much in the way of lower back pain at this point. He does have a long standing history of iritis. In fact, he is taking Pred Forte drops intermittently for these attacks, as they happen and beginning to get a cataract on account of that. 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 PAST MEDICAL HISTORY: 1. Very mild psoriasis with occasional small patches over his face. Does not really have any elsewhere. 2. Spondylitis as noted above. 3. History of iritis. 4. Status post tibia bone cyst removal 1974. CURRENT MEDICATIONS: Ibuprofen up to 800 mg three times a day, typically for back pain. ADR/ALLERGIES: TOMATINE SODIUM CAUSED HIVES. HABITS: He is a former cigarette smoker. Alcohol consumption is perhaps a glass of wine every other evening. FAMILY HISTORY: An uncle also was diagnosed with having ankylosing spondylitis. 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 A difficult situation for him is that those times that he does have substantial flare of his iritis with some loss of vision, he cannot work. REVIEW OF SYSTEMS: Otherwise significant for some difficulty sleeping and some sense of loss of memory. Otherwise he has not had Raynaud's phenomenon, pleuritic or other types of chest pain to substantially agree unexplained weight loss or fever. Not subcutaneous nodules occurring anywhere the he has noted, swollen glands. Complete review of systems otherwise is unremarkable except as noted above, according to the rheumatology problem review questionnaire. OBJECTIVE: VS: BP: 134/90. Ht: 71-5/8 in. Wt: 187 lb. Examination shows a pleasant, well-nourished man in no acute distress. HEENT: Pupils equally round and reactive to light. No synechiae are noted. Conjunctivae and sclera normal without erythema. Lips, gums, tongue, mouth and throat are normal without oral ulcerations. NECK: Supple without lymphadenopathy, thyromegaly or salivary gland enlargement. CHEST: Clear to auscultation, percussion. CARDIAC: Normal S1 and S2. I do not hear any added sounds. Peripheral pulses are 2+ diffusely. No carotid or femoral bruits. ABDOMEN: Soft, nontender. No organomegaly or palpable masses. Bowel sounds are normal. No inguinal or axillary lymphadenopathy. SKIN AND NAIL EXAMINATION: At this time shows maybe a very slight erythematous patch near the lateral corner of the right eye. No other rashes over all 4 limbs, face, abdomen or back are noted at this time. NEUROLOGICAL EXAM: Shows that cranial nerves 2 through 7, 9-12 normal. Motor strength is grade 5/5 diffusely. MUSCULOSKELETAL: Shows exquisite point tenderness over the patellar tendon attachments at the inferior pole of the patella. No effusion, synovial thickening are noted in the knee joints proper. There is no loss of motion in either knee joint. Peripheral joints otherwise in all 4 limbs are without swelling, tenderness, erythema, warmth, loss of motion, painful motion. No tenderness over the sacral iliac joints or interspinous ligaments in the lumbar spine. Chest expansion is pretty good, and Hector maneuver reveals no restriction of lumbar spine forward flexion. A lateral knee radiograph does not reveal any radiographic evidence of changes of enthesitis at either the tibial tubercle or the inferior pole of the patella, although a small spur at the inferior pole of the right knee can be appreciated. ASSESSMENT: 1. Patellar tendonitis. 2. 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 In spite of the negative radiographs, I am inclined to think that his knee pain represents an enthesitis related to his HLA-B27 disease. I do not see any evidence of active arthropathy elsewhere. Given his recurrent iritis and the consequences this has for him with respect to his occupation and livelihood, I think that treating him with a 2nd line agent, such as methotrexate would be appropriate. There are only scattered case reports of the use of methotrexate for iritis and they are not uniformly positive - but I think this is at least worth trying. In the meantime, we can see then if this helps his anterior knee pain. It already has improved somewhat spontaneously, so I think we can try methotrexate and give this some time to work. He is agreeable to this approach. PLAN: 1. I have gone over with Mr. Carrera the risks and benefits of methotrexate, including the risk of decreases of red blood cell count, white blood cell count, blood platelet count, liver enzyme elevation and rare risk of liver porosis, the risk of lung inflammation, presenting as cough or shortness of breath. 2. He is agreeable to proceed. Will start with 10 mg of methotrexate orally each week, but in 2 weeks if he is having no side affects, will have him increase the dose up to 15 mg orally each week. 3. Check CBC, ALT, creatinine, Sedimentation rate, C-reactive protein today. 4. CBC, ALT in 1 and 2 months. See me back for review in 3 months. JTS:[id number] C: 12/29/07 18:39 DOCUMENT: [id number] ITURE REMOVALIST'S ASSISTANT documented in this encounter Plan of Treatment Not on file documented as of this encounter Procedures Procedure Name Priority Date/Time Associated Diagnosis Comments XR KNEE RT 2 VIEWS Routine 12/27/2007 2: 50 PM FURNITURE REMOVALIST'S ASSISTANT XR KNEE LT 2 VIEWS Routine 12/27/2007 2: 49 PM FURNITURE REMOVALIST'S ASSISTANT documented in this encounter Results * XR Knee Rt 2 Views (12/27/2007 2:50 PM FURNITURE REMOVALIST'S ASSISTANT) Anatomical Region Laterality Modality Lower Extremity, Knee Other Narrative 12/27/2007 2:50 PM FURNITURE REMOVALIST'S ASSISTANT HISTORY: Patellar pain. REPORT: No significant spurring. No bone abnormalities. Joint spaces appear normal. Alignment on these single views appears within normal limits. [facility] Dictating SUNIL BARAHONA Radiologist Procedure Note Sunil De La Rosa MD - 01/18/2017 HISTORY: Patellar pain. REPORT: No significant spurring. No bone abnormalities. Joint spaces appear normal. Alignment on these single views appears within normal limits. [facility] Dictating SUNIL BARAHONA Radiologist Laura MCDANIELS GD * XR Knee Lt 2 Views (12/27/2007 2:49 PM FURNITURE REMOVALIST'S ASSISTANT) Anatomical Region Laterality Modality Lower Extremity, Knee Other Narrative 12/27/2007 2:49 PM FURNITURE REMOVALIST'S ASSISTANT HISTORY: Patellar pain. REPORT: No significant spurring. No bone abnormalities. Joint spaces appear normal. Alignment on these single views appears within normal limits. [facility] Dictating SUNIL BARAHONA Radiologist Procedure Note Sunil De La Rosa MD - 01/18/2017 HISTORY: Patellar pain. REPORT: No significant spurring. No bone abnormalities. Joint spaces appear normal. Alignment on these single views appears within normal limits. [address] Dictating SUNIL BARAHONA Radiologist Laura MCDANIELS GD documented in this encounter Visit Diagnoses Not on filedocumented in this encounter
--- OUTSIDE RECORDS SUMMARY | 2024-11-12 14:17 | XMS_ITS | Encounter Summary ---
Author Organization [facility] Address [address] [address] Care Team Providers Care Concrete Grinder Operator Name Role Phone Unavailable Primary Care Provider Unavailabl e Encounter Details Date Type Department Care Team (Late st Contact Info) Description 04/02/2008 PN Conversion Only [place] [facility] [address] [place] [address] Ronak Mosley MD [address] [place] [phone] Social History Tobacco Use Types Packs/Day Years Used Date Smoking Tobacco: Never Assessed Sex and Gender Information Value Date Recorded Sex Assigned at Not on file Gender Identity Not on file Sexual Orientation Not on file documented as of this encounter Plan of Treatment Not on file documented as of this encounter Procedures Procedure Name Priority Date/Time Associated Diagnosis Comments COMPLETE BLOOD COUNT-W/DIFF Routine 04/02/2008 12:34 PM CDT ALT (SGPT) Routine 04/02/2008 12:34 PM CDT documented in this encounter Results * Complete Blood Count-W/Diff (04/02/2008 12:34 PM CDT) White Blood Cell Count 4.8 3.8 - 11.0 K/cmm HP CONVERSION Red Blood Cell Count 4.76 4.20 - 5.90 m/cmm HP CONVERSION Hemoglobin 14.2 13.4 - 17.5 gm/dL HP CONVERSION Hematocrit 42.4 39.0 - 51.0 % HP CONVERSION Mean Corpuscular Volume 89.1 80.0 - 100.0 fl HP CONVERSION Mean Corpuscular Hemoglobin 29.9 27.0 - 34.0 pg HP CONVERSION Mean Corpuscular Hemoglobin Conc Grimes 33.6 32.0 - 36.5 gm/dL HP CONVERSION RDW 13.5 11.0 - 15.0 % HP CONVERSION Platelet Count 212 140 - 450 k/cmm HP CONVERSION Differential Verify Auto-Dif No normal range HP CONVERSION Neutrophils Absolute Count 2.6 2.0 - 7.5 K/cmm HP CONVERSION Neutrophil 55.4 50.0 - 75.0 % HP CONVERSION Lymphocyte % 32.1 20.0 - 40.0 % HP CONVERSION Monocyte 8.8 5.0 - 14.0 % HP CONVERSION Eosinophil 2.5 0.0 - 6.0 % HP CONVERSION Basophil % 1.2 0.0 - 2.0 % HP CONVERSION 04/02/2008 12:3 4 PM CDT Ronak Mosley MD LAB_1 HP CONVERSION * ALT (SGPT) (04/02/2008 12:34 PM CDT) Alanine Aminotransferase 19 4 - 55 U/L HP CONVERSION 04/02/2008 12:3 4 PM CDT Ronak Mosley MD LAB_1 HP CONVERSION documented in this encounter Visit Diagnoses Not on filedocumented in this encounter
--- OUTSIDE RECORDS SUMMARY | 2024-11-12 14:17 | XMS_ITS | Encounter Summary ---
Author Organization [facility] Address [address] [address] Care Team Providers Care Research Director Name Role Phone Unavailable Primary Care Provider Unavailabl e Reason for Visit * Reason Comments Other Encounter Details Date Type Department Care Team (Late st Contact Info) Description 11/24/2009 Telephone Rheumatology at [address] [place] [address] Kae Callahan PA-C [address] [place] [address] [phone] Other Social History Tobacco Use Types Packs/Day Years Used Date Smoking Tobacco: Never Assessed Sex and Gender Information Value Date Recorded Sex Assigned at Not on file Gender Identity Not on file Sexual Orientation Not on file documented as of this encounter Progress Notes * Poppy Wynne MA - 11/24/2009 9:11 AM CST Phone Note filed by Poppy Wynne MA at 03/04/112122 Author: Poppy Wynne MA Service: (none) Author Type: (none) Filed: 03/04/112122 Note Time: 11/24/09910 Status: Signed Fulfillment Associate: Agata Morales (Physician) pt has new pharmacy, needs new rx for Folic Acid 1mg, 1 qd, 90 day supply with refills. pharmacy #[id number]. call pt if problem [phone]. Created on 24Nov2009 9:11am by POPPY WYNNE R On 24Nov2009 9:14am KAE CALLAHAN wrote: script faxed Acknowledged by KAE CALLAHAN on 9:14am TIC FRAME INSERTER documented in this encounter Plan of Treatment Not on file documented as of this encounter Visit Diagnoses Not on filedocumented in this encounter
--- OUTSIDE RECORDS SUMMARY | 2024-11-12 14:17 | XMS_ITS | Encounter Summary ---
Author Organization [employer] Address [address], [place] [address] Care Team Providers Care Clinical Laboratory Medical Director Name Role Phone Unavailable Primary Care Provider Unavailabl e Encounter Details Date Type Department Care Team (Late st Contact Info) Description 04/02/2008 Office Visit Rheumatology at [facility] [address] [address] Ronak Mosley MD [address] [place] [phone] Social History Tobacco Use Types Packs/Day Years Used Date Smoking Tobacco: Never Assessed Sex and Gender Information Value Date Recorded Sex Assigned at Not on file Gender Identity Not on file Sexual Orientation Not on file documented as of this encounter Last Filed Vital Signs Vital Sign Reading Time Taken Comments Blood Pressure 124/74 04/02/2008 11:40 AM CDT Pulse 70 04/02/2008 11:40 AM CDT Temperature - - Respiratory Rate - - Oxygen Saturation - - Inhaled Oxygen Concentration - - Weight 85.7 kg (188 lb 15.7 oz) 008 11:40 AM CDT C: 85.7kg Height - - Body Mass Index 25.9 12/27/2007 12:50 PM AGENT TELEGRAPHER documented in this encounter Progress Notes * Ronak Mosley MD - 04/02/2008 12:01 AM CDT Progress Notes signed by Ronak Mosley MD at 04/02/08 1230 Author: Ronak Mosley MD Service: (none) Author Type: Physician Filed: 03/05/11 0416 Note Time: 04/02/082023 Status: Signed Electronic Resources Librarian: Ronak Mosley MD (Physician) RHEUMATOLOGY CLINIC FOLLOW-UP VISIT(1) SUBJECTIVE: Mr. Guillen returns for follow-up regarding his HLA-B27 related tendinopathy. Overall is doing well. Will still feel some trouble in the knees, except if he is rising up from a deep squat. We began methotrexate at this last visit, and he is currently on 15 mg each week. He began to improve about one month after we started it. Does have some pain plantar surface of left second metatarsal head on weight bearing. Denies increased cough, shortness of breath, mouth sores, swollen glands, fevers. Review of systems positive for: Nil else Rest of review of systems is unremarkable according to the Follow-Up Rheumatology Problem Review Questionnaire OBJECTIVE: BP: 124/74 Weight:189 lbs Pulse: 70/min Joints Right Left MCPs S0T0 S0T0 PIPs S0T0 S0T0 Wrists S0T0 S0T0 Elbows S0T0 S0T0 Shoulders S0T0 S0T0 Knees S0T0 S0T0 Ankles S0T0 S0T0 MTPs S0T0 S0T0 Minimal tenderness patellar tendon attachment on left tibial tubercle Loss of motion: none Pain on motion: none Misalignment / Deformity: mild left 2nd MTP subluxation with slight callous formation undersurface of 2nd metatarsal head. Pt Global: 2 MD Global: 2 Pain: 2 BLAS-II: 0.2 In all four limbs, joints otherwise without swelling, tenderness, warmth, erythema, loss of motion, pain on motion, misalignment, deformity or instability. IMPRESSIONS: 1. HLA-B27 related tendinopathy. He related some of his improvement to Yoga which he has taken up since I last saw him and that is possible. Nonetheless, I am inclined to attribute the bulk of his improvement to methotrexate. PLANS: 1. Continue methotrexate at 15 mg each week. 2. I advised he try Spenco arch supports for his feet. 3. CBC and ALT topday and again in 3 months. 4. See me back in 6 months. documented in this encounter Plan of Treatment Not on file documented as of this encounter Visit Diagnoses Not on filedocumented in this encounter
--- OUTSIDE RECORDS SUMMARY | 2024-11-12 14:17 | XMS_ITS | Encounter Summary ---
Author Organization [employer] Address [address], [place] [address] Care Team Providers Care Hide Buffer Name Role Phone Unavailable Primary Care Provider Unavailabl e Encounter Details Date Type Department Care Team (Late st Contact Info) Description 07/06/2010 Office Visit Rheumatology at [place] [address] [place] [address]. [place] [address] Ronak Mosley MD [address] [place] [phone] Social History Tobacco Use Types Packs/Day Years Used Date Smoking Tobacco: Never Assessed Sex and Gender Information Value Date Recorded Sex Assigned at Not on file Gender Identity Not on file Sexual Orientation Not on file documented as of this encounter Last Filed Vital Signs Vital Sign Reading Time Taken Comments Blood Pressure 146/84 07/06/2010 2:53 PM CDT Pulse 68 07/06/2010 2:53 PM CDT Temperature - - Respiratory Rate - - Oxygen Saturation - - Inhaled Oxygen Concentration - - Weight 76.3 kg (168 lb 4.4 oz) 07/06/2010 2:53 P M CDT C: 76.3kg Height - - Body Mass Index 22.82 03/26/2009 2:31 PM CDT documented in this encounter Progress Notes * Ronak Mosley MD - 07/06/2010 12:01 AM CDT Progress Notes signed by oRnak Mosley MD at 07/06/10 1522 Author: Ronak Mosley MD Service: (none) Author Type: Physician Filed: 03/06/11 0142 Note Time: 07/06/10 0001 Status: Signed Old Testament Professor: Ronak Mosley MD (Physician) RHEUMATOLOGY CLINIC FOLLOW-UP VISIT SUBJECTIVE: 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 We weaned him off of methotrexate on account of genital warts. These were numerous and quite bothersome. They are now fully cleared up, after numerous freezing procedures and discontinuing his methotrexate. Since then joint pain and discomfort, including his lower back, has returned. He states he would rather have to deal with genital warts. He also developed recurrent iritis. He is having more joint pain, especially in the bottom of his right foot. If he tries to stand up and walk without shoes or in flip-flops, he has a lot of problems. Otherwise, no increased visible joint swelling, visible redness, or palpable joint warmth. Otherwise, denies any increased cough, shortness of breath, mouth sores, swollen glands, fevers, recurrent infections Medications are updated in [employer] Review of systems positive for: nil else Rest of review of systems is unremarkable according to the Follow-Up Rheumatology Problem Review Questionnaire OBJECTIVE: BP: 146/84 Pulse: 68/min Weight: 168.3 lbs MUSCULOSKELETAL: Joints Right Left MCPs S__ T__ S__ T__ PIPs S__ T__ S__ T__ 1st CMCs S__ T___ S__ T__ Wrists S__ T___ S__ T__ Elbows S__ T___ S__ T__ Shoulders S__ T___ S__ T__ Knees S__ T___ S__ T__ Ankles S__ T___ S__ T__ MTPs S__ T___ S__ T__ Schobers from 10 cm to > 14 cm Loss of motion: none Pain on motion: none Misalignment / Deformity: none Osteophytes: first MTPs Nodules: none Tender 28 Joint Count: 0 Swollen 28 Joint Count: 0 Pain (0-10): 3.5 Pt Global (0-10): 3.5 Functional Status (0-10): 1.0 Rapid3 (0-30): 8.0 In all four limbs, joints otherwise without swelling, tenderness, warmth, erythema, loss of motion, pain on motion, misalignment, deformity or instability. Last labs in May 24 showed hemoglobin of 11.6 IMPRESSIONS: 1. HLA-B27 arthritis. This is modestly active symptomatically 2. Anemia. PLANS: 1. Discussed trade-offs of risks of genital warts versus control of his arthritis. We will first try 7.5 mg of methotrexate once weekly. 2. If in 6 weeks he feels this is not adequate to control his arthritis he will call and we will consider increasing the dose further. 3. Check Fe, IBC, ferritin, B12, folate levels 4. CBC, ALT, and creatinine in [place] late August. 5. See me abck in 6 months. documented in this encounter Plan of Treatment Not on file documented as of this encounter Visit Diagnoses Not on filedocumented in this encounter
--- OUTSIDE RECORDS SUMMARY | 2024-11-12 14:17 | XMS_ITS | Encounter Summary ---
Author Organization [employer] Address [address] [address] Care Team Providers Care Block Operator Name Role Phone Unavailable Primary Care Provider Unavailabl e Encounter Details Date Type Department Care Team (Late st Contact Info) Description 01/01/2010 PN Conversion Only LEAD SOFTWARE ENGINEER [address] [place] [address] Ronak Mosley MD [address] [place] [phone] Social History Tobacco Use Types Packs/Day Years [...] Associated Diagnosis Comments CREATININE / GFR Routine 01/01/2010 10:3 1 AM SPEED READING TEACHER COMPLETE BLOOD COUNT-W/DIFF Routine 01/01/2010 10:31 AM SPEED READING TEACHER ALT (SGPT) Routine 01/01/2010 10:31 AM SPEED READING TEACHER documented in this encounter Results * Creatinine / GFR (01/01/2010 10:31 AM SPEED READING TEACHER) Creatinine Serum 1.0 0.4 - 1.3 mg/dL HP CONVERSION Est GFR Am >60 >60 HP CONVERSION Comment: -Kosovan and Yge-Hvuzcle-Pspbdsge reference range units: mL/min/1.73m2 Normal>60, moderate decrease 30 - 59, severe decrease 15 - 29, renal failure <15 mL/min/1.73 m2 NOTE: Choose the eGFR result above appropriate for the race of the patient. Est GFR Non-Afr Am >60 >60 HP CONVERSION 01/01/2010 10:3 1 AM SPEED READING TEACHER Ronak Mosley MD LAB_1 Performing Organization Address City/[facility]/ZIP Co de Phone Number HP CONVERSION * ALT (SGPT) (01/01/2010 10:31 AM SPEED READING TEACHER) Alanine Aminotransferase 20 4 - 55 U/L HP CONVERSION 01/01/2010 10:3 1 AM SPEED READING TEACHER Ronak Mosley MD LAB_1 Performing Organization Address [facility] Co de Phone Number HP CONVERSION * (ABNORMAL) Hemogram/Plts/Diff (01/01/2010 10:31 AM SPEED READING TEACHER) White Blood Cell Count 4.6 3.8 - 11.0 k/cmm HP CONVERSION Red Blood Cell Count 4.61 4.20 - 5.90 m/cmm HP CONVERSION Hemoglobin 12.9(L) 13.4 - 17.5 gm/dL HP CONVERSION Hematocrit 39.6 39.0 - 51.0 % HP CONVERSION Mean Corpuscular Volume 85.9 80.0 - 100.0 fl HP CONVERSION Mean Corpuscular Hemoglobin 28.0 27.0 - 34.0 pg HP CONVERSION Mean Corpuscular Hemoglobin Conc Prentiss 32.6 32.0 - 36.5 gm/dL HP CONVERSION RDW 15.4(H) 11.0 - 15.0 % HP CONVERSION Platelet Count 224 140 - 450 k/cmm HP CONVERSION Differential Verify Auto-Dif No normal range HP CONVERSION Neutrophils Absolute Count 2.9 2.0 - 7.5 k/cmm HP CONVERSION Neutrophil 63.4 50.0 - 75.0 % HP CONVERSION Lymphocyte % 24.6 20.0 - 40.0 % HP CONVERSION Monocyte 8.7 5.0 - 14.0 % HP CONVERSION Eosinophil 2.1 0.0 - 6.0 % HP CONVERSION Basophil % 1.2 0.0 - 2.0 % HP CONVERSION 01/01/2010 10:3 1 AM SPEED READING TEACHER Ronak Mosley MD LAB_1 HP CONVERSION documented in this encounter Visit Diagnoses Not on filedocumented in this encounter
--- OUTSIDE RECORDS SUMMARY | 2024-11-12 14:17 | XMS_ITS | Encounter Summary ---
Author Organization [employer] [employer] Address [address] [place] [address] Care Team Providers Care Personnel Technician Name Role Phone Unavailable Primary Care Provider Unavailabl e Encounter Details Date Type Department Care Team (Late st Contact Info) Description 11/21/2006 Office Visit [facility] Occupational Medicine [address] [place] [address] Kevon Cohn MD [address] [place] [address] Social History Tobacco Use Types Packs/Day Years Used Date Smoking Tobacco: Never Assessed Sex and Gender Information Value Date Recorded Sex Assigned at Not on file Gender Identity Not on file Sexual Orientation Not on file documented as of this encounter Plan of Treatment Not on file documented as of this encounter Procedures Procedure Name Priority Date/Time Associated Diagnosis Comments ECG 12 LEAD CLINIC Routine 11/21/2006 11 :10 AM BRIDGE PAINTER HELPER documented in this encounter Results * ECG 12 lead clinic (11/21/2006 11:10 AM BRIDGE PAINTER HELPER) 11/21/2006 11:1 0 AM BRIDGE PAINTER HELPER Narrative HP CONVERSION - 11/21/2006 11:10 AM BRIDGE PAINTER HELPER Normal sinus rhythm Normal ECG No previous ECGs available Imr Conversion PN ECG ORDERABLES HP CONVERSION documented in this encounter Visit Diagnoses Not on filedocumented in this encounter
--- OUTSIDE RECORDS SUMMARY | 2024-11-12 14:17 | XMS_ITS | Encounter Summary ---
Author Organization [employer] Address [address] [address] Care Team Providers Care Registered Nurse Bone Marrow Transplant Name Role Phone Unavailable Primary Care Provider Unavailabl e Encounter Details Date Type Department Care Team (Late st Contact Info) Description 01/01/2010 Office Visit Rheumatology at [place] [address] [place] [address]. [place] [address] Ronak Mosley MD [address] [place] [phone] Social History Tobacco Use Types Packs/Day Years Used Date Smoking Tobacco: Never Assessed Sex and Gender Information Value Date Recorded Sex Assigned at Not on file Gender Identity Not on file Sexual Orientation Not on file documented as of this encounter Last Filed Vital Signs Vital Sign Reading Time Taken Comments Blood Pressure 130/84 01/01/2010 9:42 AM MEDICAL CLAIMS SPECIALIST Pulse 92 01/01/2010 9:42 AM MEDICAL CLAIMS SPECIALIST Temperature - - Respiratory Rate 20 01/01/2010 9:42 AM MEDICAL CLAIMS SPECIALIST Oxygen Saturation - - Inhaled Oxygen Concentration - - Weight - - Height - - Body Mass Index - - documented in this encounter Progress Notes * Ronak Mosley MD - 01/01/2010 12:01 AM CST Progress Notes signed by Ronak Mosley MD at 01/02/10 0900 Author: Ronak Mosley MD Service: (none) Author Type: Physician Filed: 03/05/112018 Note Time: 01/01/10 0001 Status: Signed Bookbinder Chief: Ronak Mosley MD (Physician) RHEUMATOLOGY CLINIC FOLLOW-UP VISIT (1) SUBJECTIVE: 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 Overall he is doing well on 12.5 mg of methotrexate once weekly. He is not having any side effects from the methotrexate. Since I last saw him, he has had no substantial flares of his arthritis. He is however having recurrence of genital warts, and his engineering operator told him that methotrexate may be contributing. He has had a couple of canker sores. Denies any increased cough, shortness of breath, swollen glands, fevers Otherwise, no increased visible joint swelling, visible redness, or palpable joint warmth. Medications are updated in [facility] Review of systems positive for: nil else Rest of review of systems is unremarkable according to the Follow-Up Rheumatology Problem Review Questionnaire OBJECTIVE: BP: 130/84 Pulse: 92/min Joints Right Left MCPs S0T0 S0T0 PIPs S0T0 S0T0 Wrists S0T0 S0T0 Elbows S0T0 S0T0 Shoulders S0T0 S0T0 Knees S0T0 S0T0 Ankles S0T0 S0T0 MTPs S0T0 S0T0 Loss of motion: none Pain on motion: none Misalignment / Deformity: none Nodules: none Tender 28 Joint Count: 0 Swollen 28 Joint Count: 0 Pain: 0 Pt. Global: 0.5 Function: 0.0 Rapid3: 0.5 In all four limbs, joints otherwise without swelling, tenderness, warmth, erythema, loss of motion, pain on motion, misalignment, deformity or instability. IMPRESSIONS: 1. 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 Recurrent genital warts. Clearly we want him on no more methotrexate than what is necessary to control his underlying inflammatory arthritis. PLANS: 1. Cut methotrexate to 10 mg one day each week now, to 7.5 mg one day each week in 2 months, to 5 mg one day each week in 4 months, to 2.5 mg one day each week in 6 months, and stop methotrexate in 8 months. 2. If his underlying tendinopathy starts to flare as we go through this process, we will stop the methotrexate taper and re-evaluate him. 3. CBC, ALT, creatinine now and again in 4 months. 4. See me back for review in 6 months. CAL CLAIMS SPECIALIST documented in this encounter Plan of Treatment Not on file documented as of this encounter Visit Diagnoses Not on filedocumented in this encounter
--- OUTSIDE RECORDS SUMMARY | 2024-11-12 14:17 | XMS_ITS | Encounter Summary ---
Author Organization [facility] Address [address] [address] Care Team Providers Care Hairspring Cutter Name Role Phone Unavailable Primary Care Provider Unavailabl e Encounter Details Date Type Department Care Team (Late st Contact Info) Description 12/27/2007 PN Conversion Only SLOPE HOIST OPERATOR [address] [place] [address] Social History Tobacco Use Types Packs/Day Years [...]
--- OUTSIDE RECORDS SUMMARY | 2024-11-12 14:17 | XMS_ITS | Encounter Summary ---
Author Organization [employer] Address [address] [place] [address] Care Team Providers Care Mixing Machine Tender Cork Rod Name Role Phone Unavailable Primary Care Provider Unavailabl e Reason for Visit * Reason Comments Other Encounter Details Date Type Department Care Team (Late st Contact Info) Description 10/16/2009 Telephone Rheumatology at [place] [address] [place] [address]. [place] [address] Center, Message Other Social History Tobacco Use Types Packs/Day Years Used Date Smoking Tobacco: Never Assessed Sex and Gender Information Value Date Recorded Sex Assigned at Not on file Gender Identity Not on file Sexual Orientation Not on file documented as of this encounter Progress Notes * Jodi Reeder - 10/16/2009 9:07 AM CST Phone Note filed by Jodi Reeder at 03/04/111839 Author: Jodi Reeder Service: (none) Author Type: (none) Filed: 03/04/111839 Note Time: 10/16/09906 Status: Signed Accelerator Systems Director: Agata Conversion (Physician) pt. calling needs new rx for methotrexiate pt. takes 5 tabs weekly. pt. uses mail order and needs 90 daily supply rx good for 1 year. pt. would like rx mailed out to him at his home address. please advise if questions pt. can be reached at [phone]. Created on 16Oct2009 9:07am by JODI REEDER On 16Oct2009 2:00pm LAURA HEDRICK wrote: Script printed and signed. Acknowledged by LAURA HEDRICK on 2:00pm On 16Oct2009 2:09pm JODI REEDER wrote: signed rx mailed out to pt. at home address. INE SHOP REPAIR TECHNICIAN documented in this encounter Plan of Treatment Not on file documented as of this encounter Visit Diagnoses Not on filedocumented in this encounter
--- OUTSIDE RECORDS SUMMARY | 2024-11-12 14:17 | XMS_ITS | Encounter Summary ---
Author Organization [employer] Address [address], [place] [address] Care Team Providers Care Die Developer Name Role Phone Unavailable Primary Care Provider Unavailabl e Encounter Details Date Type Department Care Team (Late st Contact Info) Description 10/01/2008 PN Conversion Only [place] CONVERSION [address] [place] [address] Ronak Mosley MD [address] [place] [phone] Social History Tobacco Use Types Packs/Day Years [...] Associated Diagnosis Comments CREATININE / GFR Routine 10/01/2008 12:4 0 PM STATOR PLATE WASHER ALT (SGPT) Routine 10/01/2008 12:40 PM STATOR PLATE WASHER documented in this encounter Results * ALT (SGPT) (10/01/2008 12:40 PM STATOR PLATE WASHER) Alanine Aminotransferase 28 4 - 55 U/L HP CONVERSION 10/01/2008 12:4 0 PM STATOR PLATE WASHER Ronak Mosley MD LAB_1 HP CONVERSION * Creatinine / GFR (10/01/2008 12:40 PM STATOR PLATE WASHER) Creatinine Serum 1.0 0.4 - 1.3 mg/dL HP CONVERSION Est GFR Am >60 >60 HP CONVERSION Comment: -Northern Irish and Wei-Gkiemxd-Nrpalkwh reference range units: mL/min/1.73m2 Normal>60, moderate decrease 30 - 59, severe decrease 15 - 29, renal failure <15 mL/min/1.73 m2 Est GFR Non-Afr Am >60 >60 HP CONVERSION 10/01/2008 12:4 0 PM STATOR PLATE WASHER Ronak Mosley MD LAB_1 Performing Organization Address [facility] de Phone Number HP CONVERSION documented in this encounter Visit Diagnoses Not on filedocumented in this encounter
--- OUTSIDE RECORDS SUMMARY | 2024-11-12 14:17 | XMS_ITS | Encounter Summary ---
Author Organization [facility] Address [address] [place] [address] Care Team Providers Care Generation Engineer Name Role Phone Unavailable Primary Care Provider Unavailabl e Encounter Details Date Type Department Care Team (Late st Contact Info) Description 11/21/2007 PN Conversion Only AIRPORT CONVERSION [address] [place] [address] Social History Tobacco Use Types Packs/Day Years [...]
--- OUTSIDE RECORDS SUMMARY | 2024-11-12 14:17 | XMS_ITS | Encounter Summary ---
Author Organization [facility] Address [address] [place] [address] Care Team Providers Care Components Engineer Name Role Phone Unavailable Primary Care Provider Unavailabl e Encounter Details Date Type Department Care Team (Late st Contact Info) Description 11/21/2006 PN Conversion Only AIRPORT CONVERSION [address] [place] [address] Social History Tobacco Use Types Packs/Day Years [...]
--- OUTSIDE RECORDS SUMMARY | 2024-11-12 14:17 | XMS_ITS | Encounter Summary ---
Author Organization [employer] Address [address], [place] [address] Care Team Providers Care Unit Supervisor Name Role Phone Unavailable Primary Care Provider Unavailabl e Encounter Details Date Type Department Care Team (Late st Contact Info) Description 03/26/2009 PN Conversion Only FIRE SUPPRESSION CAPTAIN [address] [place] [address] Ronak Mosley MD [address] [place] [phone] Social History Tobacco Use Types Packs/Day Years [...] Associated Diagnosis Comments CREATININE / GFR Routine 03/26/2009 3:21 PM CDT COMPLETE BLOOD COUNT-W/DIFF Routine 03/26/2009 3:21 PM CDT ALT (SGPT) Routine 03/26/2009 3:21 PM CDT documented in this encounter Results * (ABNORMAL) Complete Blood Count-W/Diff (03/26/2009 3:21 PM CDT) White Blood Cell Count 5.4 3.8 - 11.0 K/cmm HP CONVERSION Red Blood Cell Count 4.62 4.20 - 5.90 m/cmm HP CONVERSION Hemoglobin 13.6 13.4 - 17.5 gm/dL HP CONVERSION Hematocrit 40.5 39.0 - 51.0 % HP CONVERSION Mean Corpuscular Volume 87.6 80.0 - 100.0 fl HP CONVERSION Mean Corpuscular Hemoglobin 29.4 27.0 - 34.0 pg HP CONVERSION Mean Corpuscular Hemoglobin Conc Johnson 33.6 32.0 - 36.5 gm/dL HP CONVERSION RDW 16.5(H) 11.0 - 15.0 % HP CONVERSION Platelet Count 188 140 - 450 k/cmm HP CONVERSION Differential Verify Auto-Dif No normal range HP CONVERSION Neutrophils Absolute Count 3.5 2.0 - 7.5 K/cmm HP CONVERSION Neutrophil 64.4 50.0 - 75.0 % HP CONVERSION Lymphocyte % 24.4 20.0 - 40.0 % HP CONVERSION Monocyte 10.1 5.0 - 14.0 % HP CONVERSION Eosinophil 1.0 0.0 - 6.0 % HP CONVERSION Basophil % 0.1 0.0 - 2.0 % HP CONVERSION 03/26/2009 3:21 PM CDT Ronak Mosley MD LAB_1 HP CONVERSION * ALT (SGPT) (03/26/2009 3:21 PM CDT) Alanine Aminotransferase 19 4 - 55 U/L HP CONVERSION 03/26/2009 3:21 PM CDT Ronak Mosley MD LAB_1 HP CONVERSION * Creatinine / GFR (03/26/2009 3:21 PM CDT) Creatinine Serum 1.0 0.4 - 1.3 mg/dL HP CONVERSION Est GFR Am >60 >60 HP CONVERSION Comment: -Cypriot and Ybw-Crhbcmh-Ntaruulx reference range units: mL/min/1.73m2 Normal>60, moderate decrease 30 - 59, severe decrease 15 - 29, renal failure <15 mL/min/1.73 m2 NOTE: Choose the eGFR result above appropriate for the race of the patient. Est GFR Non-Afr Am >60 >60 HP CONVERSION 03/26/2009 3:21 PM CDT Ronak Mosley MD LAB_1 HP CONVERSION documented in this encounter Visit Diagnoses Not on filedocumented in this encounter
--- OUTSIDE RECORDS SUMMARY | 2024-11-12 14:17 | XMS_ITS | Encounter Summary ---
Author Organization [employer] Address [address] [address] Care Team Providers Care Central Supply Nurse Name Role Phone Unavailable Primary Care Provider Unavailabl e Encounter Details Date Type Department Care Team (Late st Contact Info) Description 10/01/2008 PN Conversion Only [facility] CONVERSION [address] [place] [address] Ronak Mosley MD [facility] [place] [phone] Social History Tobacco Use Types Packs/Day Years [...]
--- OUTSIDE RECORDS SUMMARY | 2024-11-12 14:17 | XMS_ITS | Encounter Summary ---
Author Organization [employer] Address [address] [address] Care Team Providers Care Hot Sealing Machine Operator Name Role Phone Unavailable Primary Care Provider Unavailabl e Encounter Details Date Type Department Care Team (Late st Contact Info) Description 12/27/2007 PN Conversion Only ENERGY CONSERVATION REPRESENTATIVE [address] [place] [address] Ronak Mosley MD [address] [place] [phone] Social History Tobacco Use Types Packs/Day Years [...] Associated Diagnosis Comments CREATININE / GFR Routine 12/27/2007 2:22 PM CUSTOMER LIAISON COMPLETE BLOOD COUNT-W/DIFF Routine 12/27/2007 2:22 PM CUSTOMER LIAISON C-REACTIVE PROTEIN Routine 12/27/2007 2: 22 PM CUSTOMER LIAISON ALT (SGPT) Routine 12/27/2007 2:22 PM CUSTOMER LIAISON SEDIMENTATION RATE (ESR) Routine 12/27/2007 2:22 PM CUSTOMER LIAISON documented in this encounter Results * Complete Blood Count-W/Diff (12/27/2007 2:22 PM CUSTOMER LIAISON) White Blood Cell Count 6.0 3.8 - 11.0 K/cmm HP CONVERSION Red Blood Cell Count 4.93 4.20 - 5.90 m/cmm HP CONVERSION Hemoglobin 15.0 13.4 - 17.5 gm/dL HP CONVERSION Hematocrit 43.7 39.0 - 51.0 % HP CONVERSION Mean Corpuscular Volume 88.7 80.0 - 100.0 fl HP CONVERSION Mean Corpuscular Hemoglobin 30.4 27.0 - 34.0 pg HP CONVERSION Mean Corpuscular Hemoglobin Conc Buchanan 34.3 32.0 - 36.5 gm/dL HP CONVERSION RDW 11.9 11.0 - 15.0 % HP CONVERSION Platelet Count 223 140 - 450 k/cmm HP CONVERSION Differential Verify Auto-Dif No normal range HP CONVERSION Neutrophils Absolute Count 3.7 2.0 - 7.5 K/cmm HP CONVERSION Neutrophil 62.3 50.0 - 75.0 % HP CONVERSION Lymphocyte % 27.1 20.0 - 40.0 % HP CONVERSION Monocyte 7.8 5.0 - 14.0 % HP CONVERSION Eosinophil 1.9 0.0 - 6.0 % HP CONVERSION Basophil % 0.9 0.0 - 2.0 % HP CONVERSION 12/27/2007 2:22 PM CUSTOMER LIAISON Ronak Mosley MD LAB_1 HP CONVERSION * ALT (SGPT) (12/27/2007 2:22 PM CUSTOMER LIAISON) Alanine Aminotransferase 22 4 - 55 U/L HP CONVERSION 12/27/2007 2:22 PM CUSTOMER LIAISON Ronak Mosley MD LAB_1 HP CONVERSION * Creatinine / GFR (12/27/2007 2:22 PM CUSTOMER LIAISON) Creatinine Serum 1.0 0.4 - 1.3 mg/dL HP CONVERSION Est GFR Am >60 >60 HP CONVERSION Est GFR Non-Afr Am >60 >60 HP CONVERSION Comment: -Argentine and Avm-Upagmwp-Heuzcngj reference range units: mL/min/1.73m2 Normal>60, moderate decrease 30 - 59, severe decrease 15 - 29, renal failure <15 mL/min/1.73 m2 12/27/2007 2:22 PM CUSTOMER LIAISON Ronak Mosley MD LAB_1 HP CONVERSION * ESR (12/27/2007 2:22 PM CUSTOMER LIAISON) Sedimentation Rate 7 0 - 15 mm/Hr HP CONVERSION 12/27/2007 2:22 PM CUSTOMER LIAISON Ronak Mosley MD LAB_1 Performing Organization Address City/[facility] Co de Phone Number HP CONVERSION * C-Reactive Protein (12/27/2007 2:22 PM CUSTOMER LIAISON) CRP <0.1 0.0 - 0.9 mg/dL HP CONVERSION 12/27/2007 2:22 PM CUSTOMER LIAISON Ronak Mosley MD LAB_1 Performing Organization Address City/State/[facility] Co de Phone Number HP CONVERSION documented in this encounter Visit Diagnoses Not on filedocumented in this encounter
--- OUTSIDE RECORDS SUMMARY | 2024-11-12 14:17 | XMS_ITS | Encounter Summary ---
Author Organization [facility] Address [address] [place] [address] Care Team Providers Care Med Spec Name Role Phone Unavailable Primary Care Provider Unavailabl e Reason for Visit * Reason Comments Other Encounter Details Date Type Department Care Team (Late st Contact Info) Description 06/08/2010 Telephone Rheumatology at [place] [address] [place] [address]. [place] [address] Center, Message Other Social History Tobacco Use Types Packs/Day Years Used Date Smoking Tobacco: Never Assessed Sex and Gender Information Value Date Recorded Sex Assigned at Not on file Gender Identity Not on file Sexual Orientation Not on file documented as of this encounter Progress Notes * Israel Layton RN - 06/08/2010 10:05 AM CDT Phone Note filed by Israel Layton RN at 03/05/11 9599 Author: Israel Layton RN Service: (none) Author Type: Registered Nurse Filed: 03/05/11 8062 Note Time: 06/08/10 1005 Status: Signed Solar Sales: Israel Layton RN (Registered Nurse) MESSAGE TO CLINICIAN CALLER: Vinh Guillen CLINICIAN: Laura Hedrick MD MESSAGE: Pt states thats he is currently taking methotrexate 2.5mg 2 tablets/week. 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 Clinician recommended that he check w/ Dr. Hedrick to see if dosage of methotrexate should be increased or a different medication should be added, etc.? Pt denies addl questions or concerns to me. Please advise. Thanks. CALL BACK NUMBER: , cellular and okay for VM. Created on 08Jun2010 10:05am by ISRAEL LAYTON On 08Jun2010 6:07pm LAURA HEDRICK wrote: I recommend; a) increase methotrexate from 4 to 6 tablets one day each week; b) get records from his eye doctor sent to us; c) see me in 3 weeks. Acknowledged by LAURA HEDRICK on 6:07pm On 09Jun2010 8:54am TYREE ARENAS wrote: Message left for pt with above information and instructions to have records faxed to [facility] Rheumatology and for pt to call back to scheduled appointment to see MD in 3 weeks. On 09Jun2010 9:42am TYREE ARENAS wrote: Pt calling to request clarification regarding Methotrexate as pt is currently taking only 2 tablets per week. Did he need to increase to 6 tablets or ???. Pt states he was having problems with viruses and that is the reason he was weaning off the Methotrexate. Pt scheduled for appointment on 06/28/10. On 09Jun2010 10:51am BRAYAN SHEARER wrote: Dr Hedrick needs to decide this as he was weaning down on the methotrexate due to difficult to control genital warts. Acknowledged by BRAYAN SHEARER on 10:51am On 10Jun2010 3:20pm LAURA HEDRICK wrote: Sorry I did not finish the last note. Stay on only 2 tabs methotrexate each week and we will reevaluate on Jun 28 Acknowledged by LAURA HEDRICK on 3:20pm On 10Jun2010 3:36pm TYREE ARENAS wrote: Message left for pt with above information B CONSULTANT documented in this encounter Plan of Treatment Not on file documented as of this encounter Visit Diagnoses Not on filedocumented in this encounter
--- OUTSIDE RECORDS SUMMARY | 2024-11-12 14:17 | XMS_ITS | Encounter Summary ---
Author Organization [employer] Address [address], [place] [address] Care Team Providers Care Certified Surgical Technologist Name Role Phone Unavailable Primary Care Provider Unavailabl e Encounter Details Date Type Department Care Team (Late st Contact Info) Description 03/26/2009 Office Visit Rheumatology at [place] [address] [place] [address]. [place] [address] Laura Hedrick MD [address] [place] [phone] Social History Tobacco Use Types Packs/Day Years Used Date Smoking Tobacco: Never Assessed Sex and Gender Information Value Date Recorded Sex Assigned at Not on file Gender Identity Not on file Sexual Orientation Not on file documented as of this encounter Last Filed Vital Signs Vital Sign Reading Time Taken Comments Blood Pressure 140/88 03/26/2009 2:31 PM CDT Pulse - - Temperature - - Respiratory Rate - - Oxygen Saturation - - Inhaled Oxygen Concentration - - Weight 83.7 kg (184 lb 9.5 oz) 03/26/20 2:31 PM CDT C: 83.7kg Height 182.9 cm (6') 03/26/2009 2:31 PM CDT C: 182.9cm Body Mass Index 25.04 03/26/2009 2:31 PM CDT documented in this encounter Progress Notes * Laura Hedrick MD - 03/26/2009 12:01 AM CDT Progress Notes signed by Laura Hedrick MD at 04/13/09 1519 Author: Laura Hedrick MD Service: (none) Author Type: Physician Filed: 03/05/11 1321 Note Time: 03/26/09 0001 Status: Signed Chief Petroleum Engineer: Laura Hedrick MD (Physician) NAME: GIOVANA CARRERA MR#: [id number] ACCT: [id number] VISIT: [id number] DICTATING CLINICIAN: LAURA HEDRICK MD CONFIRM #: [id number] LOC: 421 CLINIC PROGRESS NOTE DATE OF VISIT: 03/26/2009 SUBJECTIVE: Mr. 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 He continues on methotrexate 15 mg oral each week and is doing splendidly. He has been virtually asymptomatic. His only minor complaint he states is that he does have some pain between his shoulder blades. He thinks he strained a muscle lifting a heavy object about a week ago. The pain actually at this juncture has resolved. Denies any methotrexate related side-effects. Specifically, he is not having any fevers, chills, drenching night sweats, shortness of breath, cough, swollen glands, or mouth sores. REVIEW OF SYSTEMS: Otherwise, is significant for a little bit of difficulty sleeping, but no loss. OBJECTIVE: VS: BP1: 144/82. BP2: 140/88. Ht: 72 in. Wt: 184.6 lb. Examination shows that he is in no acute distress. MUSCULOSKELETAL: Shows at most, minimal residual tendon sheath thickening along the patellar tendon, the anterior aspect of the right knee. Peripheral joints otherwise, in all 4 limbs, are without swelling, tenderness, erythema, warmth, loss of motion, pain with motion, misalignment, or instability. ASSESSMENT: HLA-B27 inflammatory tendinopathy, under excellent control. I suspect we could cut his methotrexate dose some. PLAN: 1. Cut methotrexate to 12.5 mg oral each week. 2. We will get a CBC, ALT, and creatinine today. He has not had these for at least 6 months. Again reviewed with him the importance of checking these on a regular basis. 3. CBC, ALT, and creatinine again in 3 and 6 months. 4. See me back for review in 9 months. Pain is 4.0. Global patient assessment 0.5. Functional status 0.3. Rapid 3 is 4.8. JTS:[id number] C: 03/26/09 17:47 CONFIRM #: [id number] documented in this encounter Plan of Treatment Not on file documented as of this encounter Visit Diagnoses Not on filedocumented in this encounter
--- OUTSIDE RECORDS SUMMARY | 2024-11-12 14:17 | XMS_ITS | Encounter Summary ---
Author Organization [facility] Address [address], [place] [address] Care Team Providers Care Marketing Operations Manager Name Role Phone Unavailable Primary Care Provider Unavailabl e Encounter Details Date Type Department Care Team (Late st Contact Info) Description 10/01/2008 Office Visit Rheumatology at [facility] [address] [address] Ronak Mosley MD [address] [place] [phone] Social History Tobacco Use Types Packs/Day Years Used Date Smoking Tobacco: Never Assessed Sex and Gender Information Value Date Recorded Sex Assigned at Not on file Gender Identity Not on file Sexual Orientation Not on file documented as of this encounter Last Filed Vital Signs Vital Sign Reading Time Taken Comments Blood Pressure 134/68 10/01/2008 12:07 PM HEAT SET OPERATOR Pulse 62 10/01/2008 12:07 PM HEAT SET OPERATOR Temperature - - Respiratory Rate - - Oxygen Saturation - - Inhaled Oxygen Concentration - - Weight 86.2 kg (189 lb 15.9 oz) 008 12:07 PM HEAT SET OPERATOR C: 86.2kg Height 182.9 cm (6') 10/01/2008 12:07 PM HEAT SET OPERATOR C: 182.9cm Body Mass Index 25.77 10/01/2008 12:07 PM HEAT SET OPERATOR documented in this encounter Progress Notes * Ronak Mosley MD - 10/01/2008 12:01 AM CST Progress Notes signed by Ronak Mosley MD at 10/02/08 1130 Author: Ronak Mosley MD Service: (none) Author Type: Physician Filed: 03/05/11 0846 Note Time: 10/01/08 0001 Status: Signed Quality Manager: Ronak Mosley MD (Physician) RHEUMATOLOGY CLINIC FOLLOW-UP VISIT (1) SUBJECTIVE: Mr. Guillen returns for follow-up of his HLA_B27 tendinopathy. He is doing very well on methotrexate 15 mg po one day each week. He has virtually no joint pain whatsoever, and is functionally unimpaired from his condition. He denies any increased cough, shortness of breath, mpouth sores, swollen glands, fevers. Medications are updated in [facility] Review of systems positive for: nil else Rest of review of systems is unremarkable according to the Follow-Up Rheumatology Problem Review Questionnaire OBJECTIVE: BP: 134/68 Pulse: 62/min Weight: 190 lbs Height: 72 inches MUSCULOSKELETAL: Joints Right Left MCPs S__ T___ S__ T __ PIPs S__ T___ S__ T__ 1st CMCs S__ T___ S__ T__ Wrists S__ T___ S__ T__ Elbows S__ T___ S__ T__ Shoulders S__ T___ S__ T__ Knees S__ T___ S__ T__ Ankles S__ T___ S__ T__ MTPs S__ T___ S__ T_1_ Loss of motion: None Pain on motion: none Misalignment / Deformity: slight left 2nd MTP subluxation Slight non-tender swelling extensor carpi ulnaris tendon left wrist Tender 28 Joint Count: 0 Swollen 28 Joint Count: 0 Pt Global: 1 MD Global: 1 Pain: 1 CDAI: 2 BLAS-II: 0.0 In all four limbs, joints otherwise without swelling, tenderness, warmth, erythema, loss of motion, pain on motion, misalignment, deformity or instability. IMPRESSIONS: 1. HLA-B27 tendinopathy, doing very well PLANS: 1. Continue methotrexate and folic acid in current doses. 2. CBC, ALT, and creatinine today and in 3 months in [place] 3. See me back in 6 months. SET OPERATOR documented in this encounter Plan of Treatment Not on file documented as of this encounter Visit Diagnoses Not on filedocumented in this encounter
--- OUTSIDE RECORDS SUMMARY | 2024-11-12 14:17 | XMS_ITS | Encounter Summary ---
Author Organization [facility] Address [address] [place] [address] Care Team Providers Care Past Due Accounts Clerk Name Role Phone Unavailable Primary Care Provider Unavailabl e Encounter Details Date Type Department Care Team (Late st Contact Info) Description 11/21/2007 Office Visit [facility] Occupational Medicine [address] [place] [address] Jeronimo Wills MD [address] [place] [address] Social History Tobacco Use Types Packs/Day Years [...] Diagnosis Comments ECG [facility] Routine 11/21/2007 2: 11 PM RETURNED CASE INSPECTOR documented in this encounter Results * ECG [facility] (11/21/2007 2:11 PM RETURNED CASE INSPECTOR) 11/21/2007 2:11 PM RETURNED CASE INSPECTOR Narrative HP CONVERSION - 11/21/2007 2:11 PM RETURNED CASE INSPECTOR Normal sinus rhythm with sinus arrhythmia Normal ECG When compared with ECG of 21-NOV-2006 11:10, No significant change was found Imr Conversion PN ECG ORDERABLES HP CONVERSION documented in this encounter Visit Diagnoses Not on filedocumented in this encounter
--- OUTSIDE RECORDS SUMMARY | 2024-11-12 14:17 | XMS_ITS | Referral Summary ---
Author Organization [facility] Address [address] [place] [phone] Care Team Providers Care Hotel Office Manager Name Role Phone Elsewhere, Pcp Primary Care Provider Unavailabl e Source Comments Patient records contain information from all sites at [facility]. For routine questions regarding patient records, call [phone] during business hours, M-F 8:00 AM - 5:00 PM Central Time. Record requests for emergency care only can be directed to [phone] at any time.[facility] Encounters Date Type Department Care Team Description 10/25/2024 10:30 AM FLOW COORDINATOR Comprehensive Visit Department of Neurology in [place], [place] [address] [place] [phone] Oziel Odonnell M.D. 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 Cristiane Noel APRN, C.N.P., D.N.P. Dietary Counseling And Surveillance For Enteral Nutrition 10/01/2024 8:29 AM FLOW COORDINATOR - 10/01/2024 11:59 PM FLOW COORDINATOR Hospital Encounter Department of Radiology, [facility], in [address] [phone] Dillon Ozuna APRN, C.N.P., M.S. Pam Hillman M.S., CCC-EDUCATION SALES CONSULTANT Dietary Counseling And Surveillance For Enteral Nutrition Discharge Disposition: Home or Self Care 10/01/2024 8:15 AM FLOW COORDINATOR Comprehensive Visit Department of Neurology in [address] [phone] Dillon Ozuna APRN, C.N.P., M.S. Pam Hillman, M.S., CCC-EDUCATION SALES CONSULTANT Dysphagia (Primary Dx); Dietary Counseling And Surveillance For Enteral Nutrition 09/26/2024 2:45 PM FLOW COORDINATOR Clinical Communication Virtual Review in [address] [phone] Pre-visit Intake 08/23/2024 Clinical Communication Division of Gastroenterology in [address] [phone] Swapnil Jaramillo M.D. 08/22/2024 Clinical Communication Department of Ophthalmology in [address] [phone] Kandace Shankar M.D. 08/22/2024 4:20 PM CDT Telemedicine Division of Gastroenterology in [place], [place] [address] [place] [phone] Swapnil Jaramillo M.D. Dysphagia Oropharyngeal Phase (Primary Dx) 08/20/2024 2:16 PM CDT - 08/20/2024 11:59 PM CDT Hospital Encounter Department of Radiology, [facility] in [address] [phone] Cristiane Noel APRN, C.N.P., D.N.P. Discharge Disposition: Home or Self Care 08/20/2024 1:38 PM CDT - 08/20/2024 3:26 PM CDT Hospital Encounter Division of Gastroenterology in [address] [phone] Cristiane Noel APRN, C.N.P., D.N.P. Geovanna Aguilar APRN, CRNA Dietary Counseling And Surveillance For Enteral Nutrition Discharge Disposition: Home or Self Care 08/15/2024 Orders Only Division of Endocrinology in [place], [place] [address] [place] [phone] Cristiane Noel APRN, C.N.P., D.N.P. Dysphagia (Primary Dx) 08/15/2024 Documentation Division of General Internal Medicine in [place], [place] [address] [place] [phone] Thania Ulloa, PharmEdithD., R.Ph. 08/15/2024 Clinical Communication Division of General Internal Medicine in [place], [place] [address] [place] [phone] Cristiane Noel APRN, C.N.P., D.N.P. 08/15/2024 1:00 PM CDT Office Visit Department of Otorhinolaryngology in [place], [place] [address] [place] [phone] Rafal Rankin M.D. 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 Kriss Wharton M.S., [facility]-EDUCATION SALES CONSULTANT Dysphagia 08/15/2024 4:15 PM CDT Office Visit Department of Ophthalmology in [place] [address] Kandace Shankar M.D. Diplopia (Primary Dx) 08/15/2024 3:00 PM CDT Comprehensive Visit Department [place] [phone] Peña Carver M.D. Esotropia (Primary Dx); Diplopia; Hyperopia Right; Palsy Fourth Nerve Right; Sixth Abducent Nerve Palsy Right Eye; Sixth Abducent Nerve Palsy Left Eye 08/14/2024 Clinical Communication Department of Nutrition and Diabetes Education in [address] [phone] Victoria Muir M.S., RDN, LD 08/13/2024 3:00 PM CDT Telemedicine Division of Endocrinology in [address] [phone] Cristiane Noel APRN, C.N.P., D.N.P. Naomi Huber APRN, C.N.P. Dietary Counseling And Surveillance For Enteral Nutrition; Dysphagia; Gastrojejunostomy Percutaneous Status Post 08/13/2024 2:00 PM CDT Telemedicine Department of Nutrition and Diabetes Education in [address] [phone] Cristiane Noel APRN, C.N.P., D.N.P. Victoria Muir M.S., RDN, LD Dietary Counseling And Surveillance For Enteral Nutrition (Primary Dx); Pneumonitis Due To Inhalation Of Food And Vomit (HCC); Gastrojejunostomy Percutaneous Status Post ; Dysphagia 08/12/2024 Orders Only Department of Nutrition and Diabetes Education in [place], [place] [address] [place] [phone] Victoria Muir M.S., RDN, LD Dietary Counseling And Surveillance For Enteral Nutrition (Primary Dx); Dysphagia; Gastrojejunostomy Percutaneous Status Post 08/12/2024 Clinical Communication Division of General Internal Medicine in [place], [place] [address] [place] [phone] Cristiane Noel, WATER POLLUTION SCIENTIST, C.N.P., D.N.P. Patient Question from Last 3 Months Allergies Active Allergy Reactions Criticality Noted Date Comments Adhesive Tape-Silicones Blisters High 05/15/2024 New reaction as of 05/15/2024. Medium reaction. Sulfa (Sulfonamide Antibiotics) Anaphylaxis,Other (see comments) High 07/25/2024 Sulfamethoxazole-Trimet hoprim Hives (Reselect Reaction),Itching,Sw elling,Rash High 12/02/2023 whole body hives severe. pics reviewed. Tolmetin Hives (Reselect Reaction) 07/12/2007 PN: LW Reaction: HIVES Trimethoprim Rash 07/25/2024 Medications * This document contains information received [...] into each nostril 2 (two) times a day as needed for rhinitis or allergies (Seasonal). Active tadalafiL (CIALIS) 5 mg tablet Administer 5 mg via gastric tube daily. Active loperamide (Imodium A-D) 2 mg capsule Administer 2 mg via gastric tube 2 (two) times a day as needed for diarrhea. Active esomeprazole (NexIUM) 40 mg packet Take 1 packet (40 mg total) by mouth 2 (two) times a day. 120 packet 3 4 025 Active UNABLE TO FIND 1 each daily. durable medical equipment (DME). Anival Kelley feed bag Ref# [id number]. Change bag every 24 hours. 4 Active UNABLE TO FIND 1 each as needed (5 times daily for flushes as needed.). durable medical equipment (DME) 12ml enteral syringe NeoMed with ENFIT CONNECTOR. 4 Active mag/aluminum/sod bicarb/alginc (GAVISCON ORAL) 20 mL by g-tube route 3 (three) times a day. Gaviscon Double Action. Active escitalopram (Lexapro) 20 mg tablet Administer 20 mg via gastric tube daily. 4 Active famotidine (Pepcid) 40 mg/5 mL (8 mg/mL) suspension Administer 2.5 mL (20 mg total) via gastric tube 2 (two) times a day. 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 Resolved Problems Problem Noted Date Diagnosed Date Resolved Date Pneumonitis Due To Inhalatio n Of Food And Vomit 02/26/2024 02/28/2024 Immunizations Name Administration Dates Next Due H1N1 Inj 2009 HZV (ZOSTAVAX) 08/24/2018,06/15/2018,05/04/2012 Influenza TIV (IM) 08/05/2024 Influenza high dose QV(65 ye ars or older) (PF) 10/11/2023,09/02/2021 Influenza, Injectable, Quadrivalent 08/22/2016 Influenza, Quadrivalent, Adj uvanted, Preservative Free 07/22/2022 Influenza, Seasonal, Injectable 08/19/20 13,08/07/2013,08/27/2010,2008,09/05/2008,09/06/2007,09/13/2006,1 11/21/2004,09/09/2003 Influenza, Unspecified 08/24/2018,2016,08/22/2016,2014,07/31/2014,08/19/2013,08/27/2010,1 12/22/2008,09/05/2008,09/06/2007, 006 PCV20 06/07/2023 PCV7 (discontinued) 06/07/2023 PPSV23 01/12/2022 RSV: respiratory syncytial v irus (AREXVY) recombinant vaccine 08/01/2023 RZV (SHINGRIX) 08/24/2018,06/15/2018 Td (Adult), adsorbed 07/22/2022 Td Preservative Free (TENIVA C, DECAVAC) 07/12/2007 Tdap 08/14/2023,05/04/2012 influenza trivalent vaccine (6 months and older)(PF) 08/27/2008 influenza vaccine quad (FLUZONE/FLUARIX) (6 months and older)(PF) 08/04/2020,08/15/2019,08/24/2018,2016,09/11/2015,07/31/2014,2009,1 11/21/2004,09/09/2003 Social History Tobacco Use Types Packs/Day Years Used Date Smoking Tobacco: Former Cigarettes 0 11/13/1979 - 11/13/1985 Passive Smoke Exposure: Never Smokeless Tobacco: Never Tobacco Cessation:Counseling Given: Not Answered Passive Exposure Comments:None Alcohol Use Standard Drinks/Week Comments Not Currently 0 (1 standard drink = 0.6 oz pur e alcohol) [facility] Utilities Answer Date Recorded In the past 12 months has e [employer], oil, or water [employer] threatened to shut off services in your [...] PM CDT Legal Sex Male 8:22 AM FLOW COORDINATOR Gender Identity Male 03/12/2024 1:38 PM CDT Sexual Orientation Straight 03/12/2024 1: 38 PM CDT Last Filed Vital Signs Vital Sign Reading Time Taken Comments Blood Pressure 122/80 10/01/2024 10:39 AM FLOW COORDINATOR Pulse 78 10/01/2024 10:39 AM FLOW COORDINATOR Temperature 36.8 C (98.2 F) 07/23/2024 1:40 PM CDT Respiratory Rate 19 07/23/2024 1:55 PM CDT Oxygen Saturation 98% 07/23/2024 1:55 PM CDT Inhaled Oxygen Concentration - - Weight 72.7 kg (160 lb 4.4 oz) 10/01/2024 10:39 AM FLOW COORDINATOR Height 182.7 cm (5' 11.93) 10/01/2024 10:39 AM FLOW COORDINATOR Body Mass Index 21.78 10/01/2024 10:39 AM FLOW COORDINATOR Plan of Treatment Upcoming Encounters Date Type Department Care Team (Latest Contact Info) Description 11/15/2024 11:15 AM FLOW COORDINATOR Clinical Communication Virtual Review in [place], [place] 200 [place] [phone] 11/18/2024 3:00 PM FLOW COORDINATOR Ancillary Procedure Department of Ophthalmology in [place], [place] [address] [place] [phone] 11/18/2024 3:30 PM FLOW COORDINATOR Office Visit Department of Ophthalmology in [place], [place] [address] [place] [phone] Peña Carver M.D. [address] [place] [phone] 11/29/2024 Hospital Encounter Post Anesthesia Care Unit in [place], [place] [address] [place] [phone] Rafal Rankin M.D. [address] [place] [phone] 12/02/2024 1:30 PM FLOW COORDINATOR Comprehensive Visit Center for Sleep Medicine in [place], [place] [address] [place] [phone] Damian Vargas, WATER POLLUTION SCIENTIST, C.N.P., M.S.N. [address] [place] [phone] 12/26/2024 12:00 PM FLOW COORDINATOR Telemedicine Department of Neurology in [place], [place] [address] [place] [phone] Oziel Odonnell M.D. [address] [place] [phone] Scheduled Procedures Name Priority Associated Diagnoses Date/Ti me TRACHEOSTOMY Paralysis Vocal Cord Bilateral Complete Medical Devices Implanted Type Area Nutrition Services Worker Device Identifier Shelf Expiration Date Model / Serial / Lot [employer] Feed Bag GI Other Abdomen Dental Hardware e.g. pins/screws/ rods Mouth Procedures Procedure Name Priority Date/Time Associated Diagnosis Comments FL SWALLOW FUNCTION WITH VIDEO AND SPEECH OR OT FOR RST RAD - Routine (most inpatients and all outpatients) 10/01/2024 9:10 AM FLOW COORDINATOR Dietary Counseling And Surveillance For Enteral Nutrition OUTSIDE CT BODY Routine 09/07/2024 9:45 PM CDT OUTSIDE DX CHEST Routine 09/07/2024 5:40 PM CDT FL FLUORO LESS THAN 1 HOUR RAD - Routine (most inpatients and all outpatients) 08/20/2024 3:24 PM CDT Dietary Counseling And Surveillance For Enteral Nutrition NON-ENDOSCOPIC TUBE PROCEDURE Routine 08/20/2024 2:56 PM CDT Dietary Counseling And Surveillance For Enteral Nutrition EGD PERCUTANEOUS ENDOSCOPIC GASTROSTOMY/JEJUNOS KALEN Routine 08/20/2024 2:56 PM CDT Dietary Counseling And Surveillance For Enteral Nutrition SENSORY MOTOR EXAM Routine 08/15/2024 2: 49 PM CDT Esotropia Hyperopia Right BASIC METABOLIC PANEL, S/P Routine 02/28/2024 12:21 AM CDT from Last 3 Months or Most Recently Relevant to Health Maintenance Results * FL Swallow Function with Video and Speech or OT (10/01/2024 9:10 AM FLOW COORDINATOR) Anatomical Region Laterality Modality Gastro Intestinal, Abdominal RST LOS, Abdominal ARZ LOS, Abdominal FLA LOS N/A Digital Radiography Impressions 10/01/2024 9:34 AM FLOW COORDINATOR No significant change. No/minimal opening of the upper esophageal sphincter with contrast pooling and aspiration of thin and mildly thick liquid consistencies. Please see the speech pathology report for additional information and recommendations. Narrative 10/01/2024 9:34 AM FLOW COORDINATOR EXAM: FL SWALLOW FUNCTION WITH VIDEO AND SPEECH OR OT FOR RST COMPARISON: Video swallow 03/22/2024. FINDINGS: Video swallow study performed in conjunction with speech pathology. The patient swallowed small amounts of thin and mildly thick liquids. No significant change since prior Video Swallow on 03/22/2024. Again, that is little to no movement of the upper esophageal sphincter with significant contrast pooling in the oropharynx and subsequent aspiration. Only a trace amount of the mildly thick liquid was able to pass into the upper esophagus. Procedure Note Carolina Durham M.B.B.S. - 10/01/2024 EXAM: FL SWALLOW FUNCTION WITH VIDEO AND SPEECH OR OT FOR RST COMPARISON: Video swallow 03/22/2024. FINDINGS: Video swallow study performed in conjunction with speech pathology. Thepatient swallowed small amounts of thin and mildly thick liquids. No significant change since prior Video Swallow on 03/22/2024. Again, thatis little to no movement of the upper esophageal sphincter withsignificant contrast pooling in the oropharynx and subsequent aspiration.Only a trace amount of the mildly thick liquid was able to pass into the upper esophagus. IMPRESSION: No significant change. No/minimal opening of the upper esophagealsphincter with contrast pooling and aspiration of thin and mildly thickliquid consistencies. Please see the speech pathology report foradditional information and recommendations. Alfonso Myers APRN.N.P., M.S. IMG FLUORO SCOPY PROCEDURES Final Result * CT ABDOMEN PELVIS W CON-Outside CT Body (09/07/2024 9:45 PM CDT) Narrative [facility] - 09/10/2024 11:44 AM CDT This order has been created and auto-finalized to support the import of outside images. If available, original interpretation can be found on the Media Tab in Chart Review, in Document Viewer, as an image in QREADS or as an Addendum. If a re-interpretation or overread is required please follow defined workflow. us Provider Not In System IMG CT PROCEDURES Final R esult Performing Organization Address [facility] de Phone Number [facility] NA * XR chest 2V-Outside Chest Xray (09/07/2024 5:40 PM CDT) Narrative [facility] - 09/10/2024 11:32 AM CDT This order has been created and auto-finalized to support the import of outside images. If available, original interpretation can be found on the Media Tab in Chart Review, in Document Viewer, as an image in QREADS or as an Addendum. If a re-interpretation or overread is required please follow defined workflow. us Provider Not In System IMG DIAGNOSTIC IMAGING AK OCEDURES Final Result Performing Organization Address [facility] de Phone Number [facility] NA * FL Fluoro Less Than 1 Hour (08/20/2024 3:24 PM CDT) Narrative ERCP LOS RST - 08/20/2024 3:25 PM CDT This exam does not require a radiologist review or interpretation. Please refer to the patient's medical record on this date for clinical details. us Cristiane Noel APRN, C.N.P., D.N.P. IMG FLUOROSCO PY PROCEDURES Final Result Performing Organization Address [facility] de Phone Number ERCP LOS RST * Non-Endoscopic Tube Procedure (08/20/2024 2:56 PM CDT) 08/20/2024 2:56 PM CDT Impressions BANERJEE PROVATION - 08/20/2024 3:33 PM CDT Post-op Diagnoses: - The PEG-J tube had been in place for an extended length of time and was removed and replaced with an 18 Fr Avanos HOLLY PEG-J tube. - No specimens collected. Narrative YODER PROVATION - 08/20/2024 3:33 PM CDT Edilberto 6 GI GI Patient Name: Vinh Guillen Date of : 1955 Age: 68 Procedure Date: 08/20/2024 Procedure: Non-endoscopic Tube Procedure Providers: Juan Garrido MD, Guy Roach Iii (Fellow) Referring Provider: Cristiane Noel Pre-op Diagnoses: Routine exchange PEG-J tube Recommendation: - Repeat the procedure in 3-6 months to exchange the PEG-J tube. - Return to referring physician. Findings: The PEG-J tube required removal because it had been in place for an extended length of time. The existing PEG-J site was cleaned. An Amplatz guidewire was advanced through the existing tube. The tip of the guidewire was confirmed fluoroscopically to be in the proximal jejunum. The existing tube was removed while retaining the guidewire in position. The existing PEG-J balloon was deflated and by using traction, removal was accomplished without difficulty. An 18 Fr Avanos HOLLY PEG-J tube was lubricated and placed into the existing gastrostomy port over the guidewire. A total of 10 mL saline was used to distend the balloon that was previously tested and the guidewire was removed. When positioned, the skin marking was noted to be 4 cm at the external bumper. The final tension and compression of the abdominal wall by the PEG-J tube and external bumper were checked and revealed that the bumper was loose and lightly touching the skin. Placement into the proximal jejunum was confirmed using fluoroscopy with contrast instillation. The tube was capped, and the tube site was cleaned and dressed. Procedural Details: The patient was seen, evaluated, history reviewed, airway and heart-lung exams were performed by licensed provider and were satisfactory for planned level of sedation care. The risks, benefits and alternatives for the procedure and sedation were discussed and informed consent was obtained. A procedural pause was conducted in the presence of assisting personnel to verify the correct patient identity and procedure to be performed. The procedure was accomplished without difficulty. The patient tolerated the procedure well. Estimated Blood Loss: Minimal. Complications: No immediate complications. Sedation: No sedation administered. Attending Participation: I was present and participated during the entire procedure, including non-goldman portions. Juan Garrido MD 08/20/2024 3:33:28 PM Number of Addenda: 0 us Brian Rey APRNNEdithPEdith, Shanelle.N.P. GI PROCEDURE ORDERABLES Final Result Performing Organization Address City/[facility]/ZIP Co de Phone Number BANERJEE PROVATION NA * Sensory Motor Exam (08/15/2024 2:49 PM CDT) Narrative OPHTHALMOLGY NON-IMAGING ORDERS - 08/15/2024 3:32 PM CDT I have reviewed the medical record and the sensorimotor exam documentation. The findings are consistent with my previously initiated care plan. I agree with the impression, plan, and follow up as entered by the veterinary practice manager. us Peña Carver M.D. OPHTH TOMOGRAPHY Final Resul t Performing Organization Address [facility] de Phone Number OPHTHALMOLGY NON-IMAGING ORDERS * (ABNORMAL) Basic Metabolic Panel (02/28/2024 12:21 [...] M.S.N. LAB BLOOD AD D-ON Final Result [facility] [address] [place] [address], [facility] DTL [facility] [address] [place] [address] from Last 3 Months or Most Recently Relevant to [place] [address] MEDICARE [facility] Advance Directives For more information, please contact: [phone] Documents on File Type Date Recorded Patient Dental Assisting Instructor Expl anation Advance Directives 02/28/2024 2:04 PM Malika Guillen HCPOA/ADVOCATE/AGENT/R EPRESENTATIVE/SURROGAT E * Full Code (Latest Code Status on File) Date Activated Date Inactivated Comments 02/27/2024 12:46 AM 02/28/2024 4:31 PM Question Answer Comments Full Code: Discussed Healthcare Agents on File Name Relationship Healthcare Agent Latasha Guillen Spouse Health Care Agent Malika Bryant Sister First Alternate Health Care Agent Care Teams Hotel Office Manager Relationship Specialty Start Date End Date Elsewhere, Pcp PCP - General Family Medicine 02/26/24
--- OUTSIDE RECORDS SUMMARY | 2024-11-12 14:17 | XMS_ITS | Encounter Summary ---
Author Organization [employer] Address [address], [place] [address] Care Team Providers Care Silverware Buffing Machine Operator Name Role Phone Unavailable Primary Care Provider Unavailabl e Reason for Visit * Reason Comments Other Encounter Details Date Type Department Care Team (Late st Contact Info) Description 12/18/2008 Telephone Rheumatology at [address] [place] [address] [address] Other Social History Tobacco Use Types Packs/Day Years Used Date Smoking Tobacco: Never Assessed Sex and Gender Information Value Date Recorded Sex Assigned at Not on file Gender Identity Not on file Sexual Orientation Not on file documented as of this encounter Progress Notes * Apple Zuleta LPN - 12/18/2008 8:48 AM CST Phone Note filed by Apple Zuleta LPN at 03/03/11 1472 Author: Apple Zuleta LPN Service: (none) Author Type: (none) Filed: 03/03/11 0362 Note Time: 12/18/08 0848 Status: Signed Engrosser: Agata Morales Phonecall from pt. stating he needs a letter for the [employer] regarding his current status in regards to his Ankylosing Spondylitis, states he is doing well at this time. Vinh states he needs this letter yudy and would like it faxed to [phone] Att: Roma at [facility]. Vinh is available if needed at [phone], [place] [facility]Please call Vinh at the # above when this has been done. Created on 18Dec2008 8:48am by APPLE ZULETA On 18Dec2008 5:06pm LAURA HEDIRCK wrote: Letter dictated on stat line, please look for it. Acknowledged by LAURA HEDRICK on 5:06pm On 22Dec2008 9:50am MAGDALENE PARKS wrote: letter faxed to above # per pt. request and copy sent to pt. at home address. ENISHMENT ASSOCIATE documented in this encounter Plan of Treatment Not on file documented as of this encounter Visit Diagnoses Not on filedocumented in this encounter
--- OUTSIDE RECORDS SUMMARY | 2024-11-12 14:17 | XMS_ITS | Encounter Summary ---
Author Organization [facility] Address [address] [place] [address] Care Team Providers Care Mobile Application Development Lead Name Role Phone Unavailable Primary Care Provider Unavailabl e Encounter Details Date Type Department Care Team (Late st Contact Info) Description 11/20/2008 PN Conversion Only AIRPORT CONVERSION [address] [place] [address] Social History Tobacco Use Types Packs/Day Years [...]
--- OUTSIDE RECORDS SUMMARY | 2024-11-12 14:17 | XMS_ITS | Clinical Summary ---
Author Organization [facility] Address [address] [place] [address] Care Team Providers Care Manager Bilingual Name Role Phone Elsewhere, Pcp Primary Care Provider Unavailabl e Source Comments Patient records contain information from all sites at [facility]. For routine questions regarding patient records, call [phone] during business hours, M-F 8:00 AM - 5:00 PM Central Time. Record requests for emergency care only can be directed to [phone] at any time.[facility] Allergies Active Allergy Reactions Criticality Noted [...] 1 each daily. durable medical equipment (DME). [email or web address] feed bag Ref# [id number]. Change bag every 24 hours. 4 Active [...] Department Care Team Description 10/25/2024 10:30 AM RESEARCH ASSOCIATE QUALITY CONTROL QC Comprehensive Visit Department of Neurology in [address] [phone] Oziel Odonnell M.D. 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 Cristiane Noel APRN, C.N.P., D.N.P. Dietary Counseling And Surveillance For Enteral Nutrition 10/01/2024 8:29 AM RESEARCH ASSOCIATE QUALITY CONTROL QC - 10/01/2024 11:59 PM RESEARCH ASSOCIATE QUALITY CONTROL QC Hospital Encounter Department of Radiology, [facility], in [place], [place] [address] [place] [phone] Dillon Ozuna APRN, C.N.Romero., M.S. Pam Hillman M.S., CCC-BUSINESS RULES ANALYST Dietary Counseling And Surveillance For Enteral Nutrition Discharge Disposition: Home or Self Care 10/01/2024 8:15 AM RESEARCH ASSOCIATE QUALITY CONTROL QC Comprehensive Visit Department of Neurology in [place], [place] [address] [place] [phone] Dillon Ozuna APRN, C.N.Romero., M.S. Pam Hillman, M.S., CCC-BUSINESS RULES ANALYST Dysphagia (Primary Dx); Dietary Counseling And Surveillance For Enteral Nutrition 09/26/2024 2:45 PM RESEARCH ASSOCIATE QUALITY CONTROL QC Clinical Communication Virtual Review in [place], [place] 200 [place] [address] Pre-visit Intake 08/23/2024 Clinical Communication Division of Gastroenterology in [place], [place] [address] [place] [phone] Swapnil Jaramillo M.D. 08/22/2024 4:20 PM CDT Telemedicine Division of Gastroenterology in [place], [place] [address] [place] [phone] Swapnil Jaramillo M.D. Dysphagia Oropharyngeal Phase (Primary Dx) 08/22/2024 Clinical Communication Department of Ophthalmology in [place], [place] [address] [place] [phone] Kandace Shankar M.D. 08/20/2024 2:16 PM CDT - 08/20/2024 11:59 PM CDT Hospital Encounter Department of Radiology, [facility], in [place], [place] [address] [place] [phone] Cristiane Noel APRN C.N.P., D.N.P. Discharge Disposition: Home or Self Care 08/20/2024 1:38 PM CDT - 08/20/2024 3:26 PM CDT Hospital Encounter Division of Gastroenterology in [address] [phone] Cristiane Noel APRN, C.N.P., D.N.P. Geovanna Aguilar APRN, CRNA Dietary Counseling And Surveillance For Enteral Nutrition Discharge Disposition: Home or Self Care 08/15/2024 4:15 PM CDT Office Visit Department of Ophthalmology in [place], [place] [address] [place] [address] Kandcae Shankar M.D. Diplopia (Primary Dx) 08/15/2024 3:00 PM CDT Comprehensive Visit Department of Ophthalmology in [place], [place] [address] [place] [phone] Peña Carver M.D. Esotropia (Primary Dx); Diplopia; Hyperopia Right; Palsy Fourth Nerve Right; Sixth Abducent Nerve Palsy Right Eye; Sixth Abducent Nerve Palsy Left Eye 08/15/2024 1:00 PM CDT Office Visit Department of Otorhinolaryngology in [place], [place] [address] [place] [phone] Rafal Rankin M.D. 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 Kriss Wharton MEdithS., [facility]-BUSINESS RULES ANALYST Dysphagia 08/15/2024 Orders Only Division of Endocrinology in [place], [place] [address] [place] [phone] Cristiane Noel APRN, C.N.P., D.N.P. Dysphagia (Primary Dx) 08/15/2024 Documentation Division of General Internal Medicine in [place], [place] [address] [place] [phone] Thania Ulloa, D., R.Ph. 08/15/2024 Clinical Communication Division of General Internal Medicine in [place], [place] [address] [place] [phone] Cristiane Noel APRN, C.N.P., D.N.P. 08/14/2024 Clinical Communication Department of Nutrition and Diabetes Education in [place], [place] [address] [place] [phone] Victoria Muir M.S., RDN, LD 08/13/2024 3:00 PM CDT Telemedicine Division of Endocrinology in [place], [place] [address] [place] [phone] Cristiane Noel APRN, C.N.P., D.N.P. Naomi Huber APRN, C.N.P. Dietary Counseling And Surveillance For Enteral Nutrition; Dysphagia; Gastrojejunostomy Percutaneous Status Post 08/13/2024 2:00 PM CDT Telemedicine Department of Nutrition and Diabetes Education in [place], [place] [address] [place] [phone] Cristiane Noel APRN, C.N.P., D.N.P. Victoria Muir M.S., RDN, LD Dietary Counseling And Surveillance For Enteral Nutrition (Primary Dx); Pneumonitis Due To Inhalation Of Food And Vomit (HCC); Gastrojejunostomy Percutaneous Status Post ; Dysphagia 08/12/2024 Orders Only Department of Nutrition and Diabetes Education in [place], [place] [address] [place] [phone] Victoria Muir M.S., SHELIAN, LD Dietary Counseling And Surveillance For Enteral Nutrition (Primary Dx); Dysphagia; Gastrojejunostomy Percutaneous Status Post 08/12/2024 Clinical Communication Division of General Internal Medicine in [place], [place] [address] [place] [phone] Cristiane Noel APRN, C.N.P., D.N.P. Patient Question from Last 3 Months Immunizations Name Administration Dates Next Due H1N1 [...] (FLUZONE/FLUARIX) (6 months and older)(PF) 08/04/2020,08/15/2019,08/24/2018,2016,09/11/2015,07/31/2014,2009,1 11/21/2004,09/09/2003 Family History Medical History Relation Name Comments Breast cancer Mother Brenda Guillen Ovarian cancer Mother Brenda Guillen Breast cancer Sister Malika Bryant Relation Name Status Comments Mother Brenda Guillen Alive Sister Malika Bryant Alive Social History Tobacco Use Types Packs/Day Years [...] living situation today? I have a [facility] place to live 03/12/2024 Sex and Gender Information Value Date Recorded Sex Assigned at Male 03/12/2024 1:38 PM CDT Legal Sex Male 8:22 AM RESEARCH ASSOCIATE QUALITY CONTROL QC Gender Identity Male 03/12/2024 1:38 PM CDT Sexual Orientation Straight 03/12/2024 1: 38 PM CDT Last Filed Vital Signs Vital Sign Reading Time Taken Comments Blood Pressure 122/80 10/01/2024 10:39 AM RESEARCH ASSOCIATE QUALITY CONTROL QC Pulse 78 10/01/2024 10:39 AM RESEARCH ASSOCIATE QUALITY CONTROL QC Temperature 36.8 C (98.2 F) 07/23/2024 1:40 PM CDT Respiratory Rate 19 07/23/2024 1:55 PM CDT Oxygen Saturation 98% 07/23/2024 1:55 PM CDT Inhaled Oxygen Concentration - - Weight 72.7 kg (160 lb 4.4 oz) 10/01/2024 10:39 AM RESEARCH ASSOCIATE QUALITY CONTROL QC Height 182.7 cm (5' 11.93) 10/01/2024 10:39 AM RESEARCH ASSOCIATE QUALITY CONTROL QC Body Mass Index 21.78 10/01/2024 10:39 AM RESEARCH ASSOCIATE QUALITY CONTROL QC Plan of Treatment Upcoming Encounters Date Type Department Care Team (Latest Contact Info) Description 11/15/2024 11:15 AM RESEARCH ASSOCIATE QUALITY CONTROL QC Clinical Communication Virtual Review in [place], [place] [address] [place] [address] 11/18/2024 3:00 PM RESEARCH ASSOCIATE QUALITY CONTROL QC Ancillary Procedure Department of Ophthalmology in [place], [place] [address] [place] [phone] 11/18/2024 3:30 PM RESEARCH ASSOCIATE QUALITY CONTROL QC Office Visit Department of Ophthalmology in [place], [place] [address] [place] [phone] Peña Carver M.D. [address] [place] [phone] 11/29/2024 Hospital Encounter Post Anesthesia Care Unit in [place], [place] [address] [place] [phone] Rafal Rankin M.D. [address] [place] [phone] 12/02/2024 1:30 PM RESEARCH ASSOCIATE QUALITY CONTROL QC Comprehensive Visit Center for Sleep Medicine in [place], [place] [address] [place] [phone] Damian Vargas APRN, C.N.P., M.S.N. [address] [place] [phone] 12/26/2024 12:00 PM RESEARCH ASSOCIATE QUALITY CONTROL QC Telemedicine Department of Neurology in [place], [place] [address] [place] [phone] Oziel Odonnell M.D. [address] [place] [phone] Scheduled Procedures Name Priority Associated Diagnoses Date/Ti me TRACHEOSTOMY Paralysis Vocal Cord Bilateral Complete Health Maintenance Due Date Last Done Comments CT Colonography 1955 Cologuard 1955 FIT 1955 Hepatitis C Screening 1955 Zoster Vaccines (3 of 3) 10/19/2018 018, 08/24/2018, 06/15/2018, Additional history exists Depression Screening (Annual PHQ-2) 11/13/2023 COVID-19 Vaccine ( season) 2024 04/22/2024, 10/11/2023, 10/24/2022, Additional history exists Fasting Glucose for Diabetes Screening 02/27/2027 02/28/2024, 02/27/2024, 02/26/2024, Additional history exists Colonoscopy 06/14/2031 06/14/2021 Colorectal Cancer Screening 06/14/2031 DTaP,Tdap,and Td Vaccines (4 - Td or Tdap) 08/14/2033 08/14/2023, 07/22/2022, 05/04/2012, Additional history exists Pneumococcal vaccine (50+ years) Completed 06/07/2023, 06/07/2023, 01/12/2022 RSV vaccine - (32-36 weeks) or 60+ years Completed 08/01/2023 Abdominal Aortic Aneurysm (AAA) Screen Completed 09/19/2023 Fall Risk Screen (Annual) Completed 07/23/2024 Influenza Vaccine Completed 08/05/2024, , 07/22/2022, Additional history exists IPV Vaccines Aged Out No longer eligi ble based on patient's age to complete this topic Medical Devices Implanted Type Area Abnormal Psychology Teacher Device Identifier Shelf Expiration Date Model / Serial / Lot Kim[employer] Warren Feed Bag GI Other Abdomen Dental Hardware e.g. pins/screws/ rods Mouth Procedures Procedure Name Priority Date/Time Associated Diagnosis Comments FL SWALLOW FUNCTION WITH VIDEO AND SPEECH OR OT FOR RST RAD - Routine (most inpatients and all outpatients) 10/01/2024 9:10 AM RESEARCH ASSOCIATE QUALITY CONTROL QC Dietary Counseling And Surveillance For Enteral Nutrition [...] and Speech or OT (10/01/2024 9:10 AM RESEARCH ASSOCIATE QUALITY CONTROL QC) Anatomical Region Laterality Modality Gastro Intestinal, Abdominal RST LOS, Abdominal ARZ LOS, Abdominal FLA LOS N/A Digital Radiography Impressions 10/01/2024 9:34 AM RESEARCH ASSOCIATE QUALITY CONTROL QC No significant change. No/minimal opening of the upper esophageal sphincter with contrast pooling and aspiration of thin and mildly thick liquid consistencies. Please see the speech pathology report for additional information and recommendations. Narrative 10/01/2024 9:34 AM RESEARCH ASSOCIATE QUALITY CONTROL QC EXAM: FL SWALLOW FUNCTION WITH VIDEO AND [...] speech pathology report foradditional information and recommendations. Brian Myers APRNN.Romero., M.S. IMG FLUORO SCOPY PROCEDURES Final Result [...] PROCEDURES Final R esult Performing Organization Address City/State/[facility] Co de Phone Number IIMS NA * XR [...] Provider Not In System IMG DIAGNOSTIC IMAGING TN OCEDURES Final Result Performing Organization Address [facility] de Phone Number IIMS NA * FL Fluoro Less Than 1 Hour (08/20/2024 3:24 PM CDT) Narrative ERCP LOS RST - 08/20/2024 3:25 PM CDT This exam does not require a radiologist review or interpretation. Please refer to the patient's medical record on this date for clinical details. us Cristiane C Hakeem LOMBARDO, C.N.P., D.N.P. IMG FLUOROSCO PY PROCEDURES Final Result Performing Organization Address [facility] de Phone Number ERCP LOS RST * Non-Endoscopic Tube Procedure (08/20/2024 2:56 PM CDT) 08/20/2024 2:56 PM CDT Impressions [facility] - 08/20/2024 3:33 PM CDT Post-op Diagnoses: - The PEG-J tube had been in place for an extended length of time and was removed and replaced with an 18 Fr Avanos HOLLY PEG-J tube. - No specimens collected. N[facility]ative [facility] 08/20/2024 3:33 PM CDT Edilberto 6 [...] 08/20/2024 3:33:28 PM Number of Addenda: 0 Cristiane Noel APRN, C.N.P., D.N.P. GI PROCEDURE ORDERABLES Final Result LAVONNE SHARPE NA * Sensory Motor Exam (08/15/2024 2:49 PM CDT) Narrative OPHTHALMOLGY NON-IMAGING ORDERS - 08/15/2024 3:32 PM CDT I have reviewed the medical record and the sensorimotor exam documentation. The findings are consistent with my previously initiated care plan. I agree with the impression, plan, and follow up as entered by the manager mass. us Peña Carver M.D. OPHTH TOMOGRAPHY Final Resul t OPHTHALMOLGY NON-IMAGING ORDERS * (ABNORMAL) Basic Metabolic [...] 12:21 AM CDT 02/28/2024 12:59 AM CDT Brian Palma APRNN.P., M.S.N. LAB BLOOD AD D-ON Final Result [facility] [address] [place] [address], [place] DTL [facility] [address] [place] [address] from Last 3 Months or Most Recently Relevant to Health Maintenance Insurance MEDICARE [facility] Advance Directives For more information, please contact: [phone] Documents on File Type Date Recorded Patient Fortune Teller Expl anation Advance Directives 02/28/2024 2:04 PM Malika Guillen HCPOA/ADVOCATE/AGENT/R EPRESENTATIVE/SURROGAT E * Full Code (Latest Code Status on File) Date Activated Date Inactivated Comments 02/27/2024 12:46 AM 02/28/2024 4:31 PM Question Answer Comments Full Code: Discussed Healthcare Agents on File Name Relationship Healthcare Agent Latasha Guillen Spouse Health Care Agent Malika Bryant Sister First Alternate Health Care Agent Care Teams Manager Bilingual Relationship Specialty Start Date End Date Elsewhere, Pcp PCP - General Family Medicine 02/26/24
--- OUTSIDE RECORDS SUMMARY | 2024-11-12 14:17 | XMS_ITS ---
Author Organization [facility] Address [address] [place] [address] Care Team Providers Care Insurance Case Manager Name Role Phone Unavailable Unavailable Unavailable Surgery Details Not on file Complications Check Surgery Details section. Procedure Estimated Blood Loss Check Surgery Details section. Procedure Findings Check Surgery Details section. Procedure Specimens Taken Check Surgery Details section.
--- OUTSIDE RECORDS SUMMARY | 2024-11-12 14:18 | XMS_ITS | Encounter Summary ---
Author Organization [facility] Address [address] [place] [address] Care Team Providers Care Associate Drafter Name Role Phone Elsewhere, Pcp Primary Care Provider Unavailabl e Reason for Referral * Outpatient (Routine) - Authorized Specialty Diagnoses / Procedures Referred By Contact Referred To Contact Gastroenterology and Hepatology Swapnil Jaramillo M.D. [address] [place] [address] Phone: tel: fax: [facility] Referral ID Status Reason Start Date Expiration Date V isits Requested Visits Authorized [id number] Authorized 08/22/2024 02/21/2026 1 1 Reason for Visit * Outpatient (Routine) - Closed Specialty Diagnoses / Procedures Referred By Contact Referred To Contact Gastroenterology and Hepatology Swapnil Jaramillo M.D. [address] [place] [address] Phone: tel: fax: [facility] Referral ID Status Reason Start Date Expiration Date Visits Re quested Visits Authorized [id number] Closed 07/26/2024 01/25/2026 1 1 Encounter Details Date Type Department Care Team (Latest Contact Info) Description 08/22/2024 4:20 PM CDT Telemedicine Division of Gastroenterology in [place], [place] [address] [place] [address] Swapnil Jaramillo M.D. [address] [place] [address] Dysphagia Oropharyngeal Phase (Primary Dx) Social History Tobacco Use Types Packs/Day Years Used Date Smoking Tobacco: Former Cigarettes Q uit: 1985 Smokeless Tobacco: Never Alcohol Use Standard Drinks/Week Comments Not Currently 0 (1 standard drink = 0.6 oz pur e alcohol) [facility] Utilities Answer Date Recorded In the past 12 months has e [employer], gas, oil, or water [employer] threatened to shut off services in your [...] your living situation today? I have a [facility] place to live 03/12/2024 Sex and Gender Information Value Date Recorded Sex Assigned at Male 03/12/2024 1:38 PM CDT Legal Sex Male 8:22 AM EXPANSION ENVELOPE MAKER HAND Gender Identity Male 03/12/2024 1:38 PM [...] bowel movements a day of watery stools (Sutton 7). He had recent started Imodium 2 [...] (Latest Contact Info) Description 11/15/2024 11:15 AM EXPANSION ENVELOPE MAKER HAND Clinical Communication Virtual Review in [place], [place] [address] [place] [address] 11/18/2024 3:00 PM EXPANSION ENVELOPE MAKER HAND Ancillary Procedure Department of Ophthalmology in [place], [place] [address] [place] [phone] 11/18/2024 3:30 PM EXPANSION ENVELOPE MAKER HAND Office Visit Department of Ophthalmology in [place], [place] [address] [place] [phone] Peña Carver M.D. [address] [place] [phone] 11/29/2024 Hospital Encounter Post Anesthesia Care Unit in [place], [place] [address] [place] [phone] Rafal Rankin M.D. [address] [place] [phone] 12/02/2024 1:30 PM EXPANSION ENVELOPE MAKER HAND Comprehensive Visit Center for Sleep Medicine in [address] [phone] Damian Vargas, MODEL MAKER FIBERGLASS, C.N.P., M.S.N. [address] [place] [phone] 12/26/2024 12:00 PM EXPANSION ENVELOPE MAKER HAND Telemedicine Department of Neurology in [place], [place] [address] [place] [phone] Oziel Odonnell M.D. [address] [place] [phone] Scheduled Procedures Name Priority Associated Diagnoses Date/Ti me TRACHEOSTOMY Paralysis Vocal Cord Bilateral Complete Scheduled Referrals Name Type Priority Associated Diagnoses Order Schedule Gastroenterology and Hepatology office visit (clinic) Outpatient Referral Routine Expected: 11/22/2024, Expires: 11/22/2025 documented as of this encounter Visit Diagnoses Diagnosis Dysphagia Oropharyngeal Phase- Primary documented in this encounter Care Teams Associate Drafter Relationship Specialty Start Date End Date Elsewhere, Pcp PCP - General Family Medicine 02/26/24 documented as of this encounter
--- OUTSIDE RECORDS SUMMARY | 2024-11-12 14:18 | XMS_ITS | Encounter Summary ---
Author Organization [facility] Address [address] [place] [address] Care Team Providers Care Machine Clerical Verifier Name Role Phone Elsewhere, Pcp Primary Care Provider Unavailabl e Reason for Referral * Outpatient (Routine) - Authorized Specialty Diagnoses / Procedures Referred By Karine velasco Referred To Contact Ophthalmology Peña Carver M.D. [address] [place] [address] Phone: tel: fax: [facility] Referral ID Status Reason Start Date Expiration Date V isits Requested Visits Authorized [id number] Authorized 08/15/2024 02/14/2026 1 1 Reason for Visit * Outpatient (Routine) - Closed Specialty Diagnoses / Procedures Referred By Karine velasco Referred To Contact Ophthalmology Diagnoses Diplopia Kandace Shankar M.D. [address] [place] [address] Phone: tel: fax: [facility] Referral ID Status Reason Start Date Expiration Date Visits Re quested Visits Authorized [id number] Closed 05/20/2024 11/19/2025 1 1 Encounter Details Date Type Department Care Team (Latest Contact Info) Description 08/15/2024 3:00 PM CDT Comprehensive Visit Department of Ophthalmology in [place], [place] [address] [place] [address] Peña Carver M.D. [address] [place] [address] Esotropia (Primary Dx); Diplopia; Hyperopia Right; Palsy [...] Recorded In the past 12 months has [facility] [employer], gas, oil, or water [employer] threatened to shut off services in your [...] your living situation today? I have a [facility] place to live 03/12/2024 Sex and Gender Information Value Date Recorded Sex Assigned at Male 03/12/2024 1:38 PM CDT Legal Sex Male 8:22 AM PLASTIC EYE TECHNICIAN Gender Identity Male 03/12/2024 1:38 PM [...] hyperextended his head, lost consciousness, intubated at [facility] then transferred to [facility] intensive care unit for 2.[address] [...] (Latest Contact Info) Description 11/15/2024 11:15 AM PLASTIC EYE TECHNICIAN Clinical Communication Virtual Review in [place], [place] 200 [place] [address] 11/18/2024 3:00 PM PLASTIC EYE TECHNICIAN Ancillary Procedure Department of Ophthalmology in [place], [place] [address] [place] [phone] 11/18/2024 3:30 PM PLASTIC EYE TECHNICIAN Office Visit Department of Ophthalmology in [place], [place] [address] [place] [phone] Peña Carver M.D. [address] [place] [phone] 11/29/2024 Hospital Encounter Post Anesthesia Care Unit in [place], [place] [address] [place] [phone] Rafal Rankin M.D. [address] [place] [phone] 12/02/2024 1:30 PM PLASTIC EYE TECHNICIAN Comprehensive Visit [facility] in [address] [address] Damian Vargas, [employer]ANCE SALES REP, C.N.P., M.S.N. [address] [place] [phone] 12/26/2024 12:00 PM PLASTIC EYE TECHNICIAN Telemedicine Department of Neurology in [address] [phone] Oziel Odonnell M.D. [address] [place] [phone] Scheduled Procedures Name Priority Associated Diagnoses Date/Ti [...] and follow up as entered by the nurse aide evaluator. us Peña Carver M.D. 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
--- OUTSIDE RECORDS SUMMARY | 2024-11-12 14:18 | XMS_ITS | Encounter Summary ---
Author Organization [facility] Address [address] [place] [address] Care Team Providers Care Tree Trimmer Helper Name Role Phone Elsewhere, Pcp Primary Care Provider Unavailabl e Reason for Referral * Outpatient (Routine) - Closed Specialty Diagnoses / Procedures Referred By Karine velasco Referred To Contact Diagnoses Dietary Counseling And Surveillance For Enteral Nutrition Procedures FL Swallow Function with Video and Speech or OT Dillon Ozuna APRN C.N.P., M.S. [address] [place] [address] Phone: tel: fax: [facility] Referral ID Status Reason Start Date Expiration Date Visits Re quested Visits Authorized [id number] Closed 08/19/2024 08/19/2025 1 1 TS LAWYER Reason for Visit * Outpatient (Routine) - Closed Specialty Diagnoses / Procedures Referred By Karine velasco Referred To Contact Diagnoses Dietary Counseling And Surveillance For Enteral Nutrition Procedures FL Swallow Function with Video and Speech or OT Dillon Ozuna APRN C.N.P., M.S. [address] [place] [address] Phone: tel: fax: [facility] Referral ID Status Reason Start Date Expiration Date Visits Re quested Visits Authorized [id number] Closed 08/19/2024 08/19/2025 1 1 Encounter Details Date Type Department Care Team (Latest Contact Info) Description 10/01/2024 8:29 AM SPORTS LAWYER - 10/01/2024 11:59 PM [facility] Hospital Encounter Department of Radiology, [facility], in [place], [place] [address] [place] [address] Dillon Ozuna APRN, C.N.P., M.S. [address] [place] [phone] Pam Hillman M.S., [facility]-DIRECTOR OF TECHNOLOGY [address] [place] [phone] Dietary Counseling And Surveillance For Enteral Nutrition Discharge Disposition: Home or Self Care Social History Tobacco Use Types Packs/Day Years Used Date Smoking Tobacco: Former Cigarettes Q uit: 1985 Smokeless Tobacco: Never Alcohol Use Standard Drinks/Week Comments Not Currently 0 (1 standard drink = 0.6 oz pur e alcohol) [facility] Utilities Answer Date Recorded In the past 12 months has [facility] [employer], gas, oil, or water [employer] threatened to shut off services in your [...] your living situation today? I have a [facility] place to live 03/12/2024 Sex and Gender Information Value Date Recorded Sex Assigned at Male 03/12/2024 1:38 PM CDT Legal Sex Male 8:22 AM SPORTS LAWYER Gender Identity Male 03/12/2024 1:38 PM CDT Sexual Orientation Straight 03/12/2024 1: 38 PM CDT documented as of this encounter Medications at Time of Discharge acetaminophen (TYLENOL) 325 mg tablet Administer 650 mg via gastric tube every 6 (six) hours as needed for pain or headaches. 10/10/2023 escitalopram (Lexapro) 20 mg tablet Administer 20 mg via gastric tube daily. 06/04/2024 esomeprazole (NexIUM) 40 mg packet Take [...] as needed for rhinitis or allergies (Seasonal). loperamide (Imodium A-D) 2 mg capsule Administer 2 mg via gastric tube 2 (two) times a day as needed for diarrhea. mag/aluminum/sod bicarb/alginc (GAVISCON ORAL) 20 mL by [...] 1 each daily. durable medical equipment (DME). Snaps feed bag Ref# [id number]. Change bag every 24 hours. 03/27/2024 UNABLE TO FIND 1 each as needed (5 times daily for flushes as needed.). durable medical equipment (DME) 12ml enteral syringe NeoMed with ENFIT CONNECTOR. 03/19/2024 documented as of this encounter Plan of Treatment Upcoming Encounters Date Type Department Care Team (Latest Contact Info) Description 11/15/2024 11:15 AM SPORTS LAWYER Clinical Communication Virtual Review in [place], [place] 200 [place] [address] 11/18/2024 3:00 PM SPORTS LAWYER Ancillary Procedure Department of Ophthalmology in [address] [phone] 11/18/2024 3:30 PM SPORTS LAWYER Office Visit Department of Ophthalmology in [address] [phone] Peña Carver M.D. [address] [place] [phone] 11/29/2024 Hospital Encounter Post Anesthesia Care Unit in [place], [place] [address] [place] [phone] Rafal Rankin M.D. [address] [place] [phone] 12/02/2024 1:30 PM SPORTS LAWYER Comprehensive Visit [facility] in [place], [place] [address] [place] [phone] Damian Vargas, GRUPO, C.N.P., M.S.N. [address] [place] [phone] 12/26/2024 12:00 PM SPORTS LAWYER Telemedicine Department of Neurology in [place], [place] [address] [place] [phone] Oziel Odonnell M.D. [address] [place] [phone] Scheduled Procedures Name Priority Associated Diagnoses Date/Ti me TRACHEOSTOMY Paralysis Vocal Cord Bilateral Complete documented as of this encounter Procedures Procedure Name Priority Date/Time Associated Diagnosis Comments FL SWALLOW FUNCTION WITH VIDEO AND SPEECH OR OT FOR RST RAD - Routine (most inpatients and all outpatients) 10/01/2024 9:10 AM SPORTS LAWYER Dietary Counseling And Surveillance For Enteral Nutrition documented in this encounter Results * FL Swallow Function with Video and Speech or OT (10/01/2024 9:10 AM SPORTS LAWYER) Anatomical Region Laterality Modality Gastro Intestinal, Abdominal RST LOS, Abdominal ARZ LOS, Abdominal FLA LOS N/A Digital Radiography Impressions 10/01/2024 9:34 AM SPORTS LAWYER No significant change. No/minimal opening of the upper esophageal sphincter with contrast pooling and aspiration of thin and mildly thick liquid consistencies. Please see the speech pathology report for additional information and recommendations. Narrative 10/01/2024 9:34 AM SPORTS LAWYER EXAM: FL SWALLOW FUNCTION WITH VIDEO AND [...] speech pathology report foradditional information and recommendations. Dillon Ozuna APRN, C.N.P., M.S. IMG FLUORO SCOPY PROCEDURES Final Result documented in this encounter Visit Diagnoses Diagnosis Dietary Counseling And Surveillance For Enteral Nutrition documented in this encounter Administered Medications Inactive Administered Medications - up to 3 most recent administrations Medication Order MAR Action Action Date Dose Rate Site barium 40 % (w/v) suspension 10 mL 10 mL, oral, Once in imaging, contrast, Starting on Mon10/01/24 at 0910, For 1 dose Given 10/01/2024 9:12 AM SPORTS LAWYER 10 mL barium 40 % (w/v), 30% (w/w) paste 5 mL (Varibar Pudding) 5 mL, oral, Once in imaging, contrast, Starting on Mon10/01/24 at 0910, For 1 dose Given 10/01/2024 9:12 AM SPORTS LAWYER 5 mL barium 81 % (w/w) oral powder for suspension 20 g (Varibar Thin Liquid) 20 g (50 mL), oral, Once in imaging, contrast, Starting on Mon10/01/24 at 0910, For 1 dose Given 10/01/2024 9:12 AM SPORTS LAWYER 20 g documented in this encounter Care Teams Tree Trimmer Helper Relationship Specialty Start Date End Date Elsewhere, Pcp PCP - General Family Medicine 02/26/24 documented as of this encounter
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
--- OUTSIDE RECORDS SUMMARY | 2024-11-12 14:18 | XMS_ITS | Encounter Summary ---
Author Organization [facility] Address [address] [place] [address] Care Team Providers Care Civil Division Deputy Sheriff Name Role Phone Elsewhere, Pcp Primary Care Provider Unavailabl e Reason for Visit * Reason Onset Date Comments Pre-visit Intake 10/07/2024 * Appointment Request (Routine) - Authorized Specialty Diagnoses / Procedures Referred By Karine velasco Referred To Contact Otorhinolaryngology Referral ID Status Reason Start Date Expiration Date V isits Requested Visits Authorized [id number] Authorized 10/03/2024 10/03/2025 1 1 Encounter Details Date Type Department Care Team (Latest Contact Info) Description 10/07/2024 9:00 AM REST ROOM MAID Clinical Communication Virtual Review in [place], [place] 200 [place] [address] Pre-visit Intake Social History Tobacco Use Types Packs/Day Years Used Date Smoking Tobacco: Former Cigarettes 0 11/13/1979 - 11/13/1985 Passive Smoke Exposure: Never Smokeless Tobacco: Never Tobacco Cessation:Counseling Given: Not Answered Passive Exposure Comments:None Alcohol Use Standard Drinks/Week Comments Not Currently 0 (1 standard drink = 0.6 oz pur e alcohol) [facility] Utilities Answer Date Recorded In the past 12 months has [employer] gas, oil, or water [employer] threatened to shut off services in your [...] your living situation today? I have a [facility] place to live 03/12/2024 Sex and Gender Information Value Date Recorded Sex Assigned at Male 03/12/2024 1:38 PM CDT Legal Sex Male 8:22 AM REST ROOM MAID Gender Identity Male 03/12/2024 1:38 PM CDT Sexual Orientation Straight 03/12/2024 1: 38 PM CDT documented as of this encounter Plan of Treatment Upcoming Encounters Date Type Department Care Team (Latest Contact Info) Description 11/15/2024 11:15 AM REST ROOM MAID Clinical Communication Virtual Review in [place], [place] 200 [place] [address] 11/18/2024 3:00 PM REST ROOM MAID Ancillary Procedure Department of Ophthalmology in [place], [place] [address] [place] [phone] 11/18/2024 3:30 PM REST ROOM MAID Office Visit Department of Ophthalmology in [place], [place] [address] [place] [phone] Peña Carver M.D. [address] [place] [phone] 11/29/2024 Hospital Encounter Post Anesthesia Care Unit in [place], [place] [address] [place] [phone] Rafal Rankin M.D. [address] [place] [phone] 12/02/2024 1:30 PM REST ROOM MAID Comprehensive Visit Center for Sleep Medicine in [address] [phone] Damian Vargas, PRINCIPAL SECRETARY, C.N.P., M.S.N. [address] [place] [phone] 12/26/2024 12:00 PM REST ROOM MAID Telemedicine Department of Neurology in [place], [place] [address] [place] [phone] Oziel Odonnell M.D. [address] [place] [phone] Scheduled Procedures Name Priority Associated Diagnoses Date/Ti me TRACHEOSTOMY Paralysis Vocal Cord Bilateral Complete documented as of this encounter Visit Diagnoses Not on filedocumented in this encounter Care Teams Civil Division Deputy Sheriff Relationship Specialty Start Date End Date Elsewhere, Pcp PCP - General Family Medicine 4/15/24 documented as of this encounter
--- OUTSIDE RECORDS SUMMARY | 2024-11-12 14:18 | XMS_ITS | Encounter Summary ---
Author Organization [facility] Address [address] [place] [address] Care Team Providers Care Supplier Quality Engineer Name Role Phone Elsewhere, Pcp Primary Care Provider Unavailabl e Reason for Referral * Outpatient (Routine) - Authorized Specialty Diagnoses / Procedures Referred By Karine velasco Referred To Contact Neurology Oziel Odonnell M.D. 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 [address] [place] [address] Phone: tel: fax: [facility] Referral ID Status Reason Start Date Expiration Date Visits Re quested Visits Authorized [id number] Closed 08/06/2024 02/05/2026 1 1 Encounter Details Date Type Department Care Team (Latest Contact Info) Description 10/25/2024 10:30 AM LAB ENGINEER Comprehensive Visit Department of Neurology in [place], [place] [address] [place] [address] Oziel Odonnell M.D. [address] [place] [address] Traumatic Subarachnoid Hemorrhage Without Loss Of Consciousness [...] In the past [address] [facility] [employer], gas, oil, or water [email or web address] threatened to shut off services in your [...] your living situation today? I have a [facility] place to live 03/12/2024 Sex and Gender Information Value Date Recorded Sex Assigned at Male 03/12/2024 1:38 PM CDT Legal Sex Male 8:22 AM LAB ENGINEER Gender Identity Male 03/12/2024 1:38 PM CDT Sexual Orientation Straight 03/12/2024 1: 38 PM CDT documented as of this encounter Plan of Treatment Upcoming Encounters Date Type Department Care Team (Latest Contact Info) Description 11/15/2024 11:15 AM LAB ENGINEER Clinical Communication Virtual Review in [place], [place] 200 [place] [address] 11/18/2024 3:00 PM LAB ENGINEER Ancillary Procedure Department of Ophthalmology in [place], [place] [address] [place] [phone] 11/18/2024 3:30 PM LAB ENGINEER Office Visit Department of Ophthalmology in [place], [place] [address] [place] [phone] Peña Carver M.D. [address] [place] [phone] 11/29/2024 Hospital Encounter Post Anesthesia Care Unit in [place], [place] [address] [place] [phone] Rafal Rankin M.D. [address] [place] [phone] 12/02/2024 1:30 PM LAB ENGINEER Comprehensive Visit Center for Sleep Medicine in [place], [place] [address] [place] [phone] Damian Vargas, GRUPO, C.N.P., M.S.N. [address] [place] [phone] 12/26/2024 12:00 PM LAB ENGINEER Telemedicine Department of Neurology in [place], [place] [address] [place] [phone] Oziel Odonnell M.D. 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) Expected: 10/25/2024, Expires: 01/23/2026 Scheduled Procedures Name Priority Associated Diagnoses Date/Ti me TRACHEOSTOMY Paralysis Vocal Cord Bilateral Complete Scheduled Referrals Name Type Priority Associated Diagnoses Order Schedule Neurology office visit (clinic) Outpatient Referral Routine 1 Occurrence s starting 10/25/2024 until 01/23/2026 documented as of this encounter Visit Diagnoses Diagnosis 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
--- OUTSIDE RECORDS SUMMARY | 2024-11-12 14:18 | XMS_ITS | Encounter Summary ---
Author Organization [facility] Address [address] [place] [address] Care Team Providers Care Head Of Commission Department Name Role Phone Elsewhere, Pcp Primary Care Provider Unavailabl e Encounter Details Date Type Department Care Team (Latest Contact Info) Description 08/22/2024 Clinical Communication Department of Ophthalmology in [place], [place] [address] [place] [address] Kandace Shankar M.D. [address] [place] [address] Social History Tobacco Use Types Packs/Day Years Used Date Smoking Tobacco: Former Cigarettes Q uit: 1985 Smokeless Tobacco: Never Alcohol Use Standard Drinks/Week Comments Not Currently 0 (1 standard drink = 0.6 oz pur e alcohol) [facility] Utilities Answer Date Recorded In [...] PM CDT Legal Sex Male 8:22 AM SUPERVISOR TUBING Gender Identity Male 03/12/2024 1:38 PM CDT Sexual Orientation Straight 03/12/2024 1: 38 PM CDT documented as of this encounter Plan of Treatment Upcoming Encounters Date Type Department Care Team (Latest Contact Info) Description 11/15/2024 11:15 AM SUPERVISOR TUBING Clinical Communication Virtual Review in [address] [phone] 11/18/2024 3:00 PM SUPERVISOR TUBING Ancillary Procedure Department of Ophthalmology in [place], [place] [address] [place] [phone] 11/18/2024 3:30 PM SUPERVISOR TUBING Office Visit Department of Ophthalmology in [place], [place] [address] [place] [phone] Peña Carver M.D. [address] [place] [phone] 11/29/2024 Hospital Encounter Post Anesthesia Care Unit in [place], [place] [address] [place] [phone] Rafal Rankin M.D. [address] [place] [phone] 12/02/2024 1:30 PM SUPERVISOR TUBING Comprehensive Visit Center for Sleep Medicine in [place], [place] [address] [place] [phone] Damian Vargas, RULES EXAMINER, C.N.P., M.S.N. [address] [place] [phone] 12/26/2024 12:00 PM SUPERVISOR TUBING Telemedicine Department of Neurology in [place], [place] [address] [place] [phone] Oziel Odonnell M.D. [address] [place] [phone] Scheduled Procedures Name Priority Associated Diagnoses Date/Ti me TRACHEOSTOMY Paralysis Vocal Cord Bilateral Complete documented as of this encounter Visit Diagnoses Not on filedocumented in this encounter Care Teams Head Of Commission Department Relationship Specialty Start Date End Date Elsewhere, Pcp PCP - General Family Medicine 02/26/24 documented as of this encounter
--- OUTSIDE RECORDS SUMMARY | 2024-11-12 14:18 | XMS_ITS | Encounter Summary ---
Author Organization [facility] Address [address] [place] [address] Care Team Providers Care Power Tool Repair Technician Name Role Phone Elsewhere, Pcp Primary Care Provider Unavailabl e Reason for Visit * Outpatient (Routine) - Closed Specialty Diagnoses / Procedures Referred By Karine velasco Referred To Contact Endocrinology Diagnoses Dietary Counseling And Surveillance For Enteral Nutrition Dillon Ozuna APRN, C.N.P., M.S. [address] [place] [phone] Phone: tel: fax: END HEN PROVIDER JOSE ALBERTO Referral ID Status Reason Start Date Expiration Date Visits Re quested Visits Authorized [id number] Closed 08/19/2024 02/18/2026 1 1 Encounter Details Date Type Department Care Team (Late st Contact Info) Description 10/01/2024 11:00 AM CHILDREN'S NURSERY ASSISTANT Office Visit Division of Endocrinology in [place], [place] [address] [place] [phone] Dillon Ozuna APRN, C.N.P., M.S. [address] [place] [phone] Cristiane Palacio, GRUPO, C.N.P., D.N.P. 200 [place] [address] Dietary Counseling And Surveillance For Enteral Nutrition Social History Tobacco Use Types Packs/Day Years Used Date Smoking Tobacco: Former Cigarettes Q uit: 1985 Smokeless Tobacco: Never Alcohol Use Standard Drinks/Week Comments Not Currently 0 (1 standard drink = 0.6 oz pur e alcohol) [facility] Utilities Answer Date Recorded In the past 12 months has e [employer], gas, oil, or water [employer] threatened to shut off services in your [...] PM CDT Legal Sex Male 8:22 AM CHILDREN'S NURSERY ASSISTANT Gender Identity Male 03/12/2024 1:38 PM CDT Sexual Orientation Straight 03/12/2024 1: 38 PM CDT documented as of this encounter Last Filed Vital Signs Vital Sign Reading Time Taken Comments Blood Pressure 122/80 10/01/2024 10:39 AM CHILDREN'S NURSERY ASSISTANT Pulse 78 10/01/2024 10:39 AM CHILDREN'S NURSERY ASSISTANT Temperature - - Respiratory Rate - - Oxygen Saturation - - Inhaled Oxygen Concentration - - Weight 72.7 kg (160 lb 4.4 oz) 10/01/2024 10:39 AM CHILDREN'S NURSERY ASSISTANT Height 182.7 cm (5' 11.93) 10/01/2024 10:39 AM CHILDREN'S NURSERY ASSISTANT Body Mass Index 21.78 10/01/2024 10:39 AM CHILDREN'S NURSERY ASSISTANT documented in this encounter Patient Instructions * Patient Instructions* Cristiane Palacio APRN, C.N.P., D.N.P. - 10/01/2024 11:00 AM CHILDREN'S NURSERY ASSISTANT Trial nocturnal feeds Dietitians will call next week to see how its going Stay on 6 cartons for now, let us know if you have significant weight loss We will communicate with GI providers DREN'S NURSERY ASSISTANT DREN'S NURSERY ASSISTANT DREN'S NURSERY ASSISTANT documented in this encounter Progress Notes * Cristiane Palacio, GRUPO, C.N.P., D.N.P. - 10/01/2024 11:00 AM CST CHIEF COMPLAINT Return visit SUBJECTIVE Mr. Vinh [...] tube. On 08/09/2024, he was admitted to [facility] with nausea, vomiting, dyspnea and fever, at which time he was also diagnosed with COVID 19 infection. He states that he was diagnosed with aspiration pneumonia. He discharged yesterday, 08/13. Medical history also significant for BPH and depression. Mr. Guillen returns [facility] to [facility], accompanied by his . Mr. Guillen last met with our team in early August. At that time, he was recovering from COVID and plan was for him to continue following with speech and GI for recommendations of oral intake and management of his reflux and esophagitis. Medical problems/changes since last visit: Patient completed follow-up swallow study earlier today and was found to have no significant improvement in his swallow function. Current typical daily oral nutrition consists of: NPO Current typical daily oral hydration consists of: NPO Patient currently takes all medications via: J port Current daily enteral nutrition consist of: Peptide Compleat, runs at 125 ml/hr Patient reports the following gastrointestinal symptoms: Denies nausea, vomiting, constipation. Mild diarrhea with approximately 3-4 stools per day. Output: Adequate Patient states current daily activity level consists of: Doing PT, utilizing bands, some weight work. Feeding tube is without concern. Most recent tube exchange was 08/20/2024. Refer to documentation by HEN dietitian and HEN nurse for further detail and specifics regarding current hydration, nutritional intake, weight trends, and feeding tube. The following portions of the patient's history were reviewed and updated as appropriate: allergies, current medications, family history, medical history, social history, surgical history, and problem list OBJECTIVE Weight history Wt Readings from Last 6 Encounters: 10/01/24 72.7 kg 08/20/24 72.1 kg 07/23/24 73.6 kg 06/18/24 73.5 kg 05/03/24 70.9 kg 03/21/24 68 kg Pertinent studies, labs, imaging reviewed Physical exam General: Alert, Oriented x 4 Musculoskeletal: No overt muscle wasting appreciated. ENT: No obvious glossitis or cheilosis. Extremities: No obvious edema. Abdomen: GJ tube site without concerns for erythema, infection or skin breakdown. Dermatologic: Skin is free of dermatitis. Hair is not coarse or brittle appearing. ASSESSMENT / PLAN It was a pleasure to meet Mr. Guillen and his , Kerry this morning. He is a very pleasant 68-year-old male who presents for home enteral nutrition follow-up. Nutritionally, the patient has been stable. He decreased his enteral nutrition down to 6 cartons per day when he lost talk to our team in mid August. His weight has been stable. Patient has increased his physical activity and has been doing some resistance activity with bands and weights. The patient does not meet criteria for malnutrition based on the [employer] on Malnutrition criteria. In office today, we discussed his most recent swallow study which showed no indication of significant improvement in swallow function. That being said, the patient in his are both aware that this indicates he should continue with post pyloric feeds for nutrition support and continue working with GI on management of his reflux. Given the anticipated long-term of his jejunal feeds, we did discuss transitioning to nocturnal feeds. Patient was excited about this potential and plans to trial starting tonight or tomorrow. We will reach out to his GI team to share nutrition plans with them. If they are considering any surgical interventions for management of reflux in the future, we are certainly happy to see him back at that time to make sure he is nutritionally optimized prior to surgery. The following recommendations were shared with the patient: Patient Instructions Trial nocturnal feeds Dietitians will call next week to see how its going Stay on 6 cartons for now, let us know if you have significant weight loss We will communicate with GI providers Patient states general agreement with this plan. I shared my contact information. Patient will reach out if changes occur to plan of care. Total time spent 40 minutes, including rjai-za-euma and non mtli-it-jcpc care time. DREN'S NURSERY ASSISTANT documented in this encounter Plan of Treatment Upcoming Encounters Date Type Department Care Team (Latest Contact Info) Description 11/15/2024 11:15 AM CHILDREN'S NURSERY ASSISTANT Clinical Communication Virtual Review in [place], [place] 200 [place] [phone] 11/18/2024 3:00 PM CHILDREN'S NURSERY ASSISTANT Ancillary Procedure Department of Ophthalmology in [place], [place] [address] [place] [phone] 11/18/2024 3:30 PM CHILDREN'S NURSERY ASSISTANT Office Visit Department of Ophthalmology in [place], [place] [address] [place] [phone] Peña Carver M.D. [address] [place] [phone] 11/29/2024 Hospital Encounter Post Anesthesia Care Unit in [place], [place] [address] [place] [phone] Rafal Rankin M.D. [address] [place] [phone] 12/02/2024 1:30 PM CHILDREN'S NURSERY ASSISTANT Comprehensive Visit Center for Sleep Medicine in [address] [phone] Damian Vargas APRN, C.N.P., M.S.N. [address] [place] [phone] 12/26/2024 12:00 PM CHILDREN'S NURSERY ASSISTANT Telemedicine Department of Neurology in [place], [place] [address] [place] [phone] Oziel Odonnell M.D. 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
--- OUTSIDE RECORDS SUMMARY | 2024-11-12 14:18 | XMS_ITS | Encounter Summary ---
Author Organization [facility] Address [address] [place] [address] Care Team Providers Care Lead Trainer Name Role Phone Elsewhere, Pcp Primary Care Provider Unavailabl e Reason for Visit * Reason Onset Date Comments Pre-visit Intake 09/26/2024 Encounter Details Date Type Department Care Team (Latest Contact Info) Description 09/26/2024 2:45 PM HEAT TREATING OPERATOR Clinical Communication Virtual Review in [place], [place] [address] [place] [address] Pre-visit Intake Social History Tobacco Use Types Packs/Day Years Used Date Smoking Tobacco: Former Cigarettes Q uit: 1985 Smokeless Tobacco: Never Tobacco Cessation:Counseling Given: Not Answered Alcohol Use Standard Drinks/Week Comments Not Currently 0 (1 standard drink = 0.6 oz pur e alcohol) [facility] Utilities Answer Date Recorded In the past [...] your living situation today? I have a [facility] place to live 03/12/2024 Sex and Gender Information Value Date Recorded Sex Assigned at Male 03/12/2024 1:38 PM CDT Legal Sex Male 8:22 AM HEAT TREATING OPERATOR Gender Identity Male 03/12/2024 1:38 PM CDT Sexual Orientation Straight 03/12/2024 1: 38 PM CDT documented as of this encounter Plan of Treatment Upcoming Encounters Date Type Department Care Team (Latest Contact Info) Description 11/15/2024 11:15 AM HEAT TREATING OPERATOR Clinical Communication Virtual Review in [place] [address] [place] [address] 11/18/2024 3:00 PM HEAT TREATING OPERATOR Ancillary Procedure Department of Ophthalmology in [place], [place] [address] [place] [phone] 11/18/2024 3:30 PM HEAT TREATING OPERATOR Office Visit Department of Ophthalmology in [place], [place] [address] [place] [phone] Peña Carver M.D. [address] [place] [phone] 11/29/2024 Hospital Encounter Post Anesthesia Care Unit in [place], [place] [address] [place] [phone] Rafal Rankin M.D. [address] [place] [phone] 12/02/2024 1:30 PM HEAT TREATING OPERATOR Comprehensive Visit Center for Sleep Medicine in [place], [place] [address] [place] [phone] Damian Vargas, DIRECTOR OF MANUFACTURING, C.N.P., M.S.N. [address] [place] [phone] 12/26/2024 12:00 PM HEAT TREATING OPERATOR Telemedicine Department of Neurology in [place], [place] [address] [place] [phone] Oziel Odonnell M.D. 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
--- OUTSIDE RECORDS SUMMARY | 2024-11-12 14:18 | XMS_ITS | Encounter Summary ---
Author Organization [facility] Address [address] [place] [address] Care Team Providers Care Instrument Panel Assembler Name Role Phone Elsewhere, Pcp Primary Care Provider Unavailabl e Encounter Details Date Type Department Care Team (Late st Contact Info) Description 08/14/2024 Clinical Communication Department of Nutrition and Diabetes Education in [place], [place] [address] [place] [phone] Victoria Muir M.S., RDN, LD [address] [place] [address] Social History Tobacco Use Types Packs/Day Years [...] PM CDT Legal Sex Male 8:22 AM BUSINESS ANALYST CONSULTANT Gender Identity Male 03/12/2024 1:38 PM CDT Sexual Orientation Straight 03/12/2024 1: 38 PM CDT documented as of this encounter Miscellaneous Notes * Telephone Encounter - Victoria Muir M.S., RDN, LD - 08/14/2024 2:09 PM CDT Returned Kerry's call. Zofran is ok to administer via jejunal port - Naomi recommended this yesterday and Kerry gave it last night and today via jejunal port. They decreased feeds to 100 mL/hr, but Vinh is still not feeling well. They are keeping him well hydrated. documented in this encounter Plan of Treatment Upcoming Encounters Date Type Department Care Team (Latest Contact Info) Description 11/15/2024 11:15 AM BUSINESS ANALYST CONSULTANT Clinical Communication Virtual Review in [place], [place] 200 [place] [address] 11/18/2024 3:00 PM BUSINESS ANALYST CONSULTANT Ancillary Procedure Department of Ophthalmology in [address] [phone] 11/18/2024 3:30 PM BUSINESS ANALYST CONSULTANT Office Visit Department of Ophthalmology in [address] [phone] Peña Carver M.D. [address] [place] [phone] 11/29/2024 Hospital Encounter Post Anesthesia Care Unit in [place], [place] [address] [place] [phone] Rafal Rankin M.D. [address] [place] [phone] 12/02/2024 1:30 PM BUSINESS ANALYST CONSULTANT Comprehensive Visit Center for Sleep Medicine in [address] [phone] Damian Vargas, APPLICATION HELPER, C.N.P., M.S.N. [address] [place] [phone] 12/26/2024 12:00 PM BUSINESS ANALYST CONSULTANT Telemedicine Department of Neurology in [address] [phone] Oziel Odonnell M.D. 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
--- OUTSIDE RECORDS SUMMARY | 2024-11-12 14:18 | XMS_ITS | Encounter Summary ---
Author Organization [facility] Address [address] [place] [address] Care Team Providers Care Bonbon Dipper Name Role Phone Elsewhere, Pcp Primary Care Provider Unavailabl e Encounter Details Date Type Department Care Team (Latest Contact Info) Description 08/23/2024 Clinical Communication Division of Gastroenterology in [place], [place] [address] [place] [address] Swapnil Jaramillo M.D. [address] [place] [address] Social History Tobacco Use Types Packs/Day Years Used Date Smoking Tobacco: Former Cigarettes Q uit: 1985 Smokeless Tobacco: Never Alcohol Use Standard Drinks/Week Comments Not Currently 0 (1 standard drink = 0.6 oz pur e alcohol) [facility] Utilities Answer Date Recorded In the past 12 months has e [employer], gas, oil, or water [employer] threatened to shut off services in your [...] living situation today? I have a [facility] place to live 03/12/2024 Sex and Gender Information Value Date Recorded Sex Assigned at Male 03/12/2024 1:38 PM CDT Legal Sex Male 8:22 AM HELPDESK SPECIALIST Gender Identity Male 03/12/2024 1:38 PM [...] that I previously reached out to the [facility] last month and was told that the Dexilant can be opened and flushed down a NG tube that is greater than a 16 lithuanian. There is no liquid form available. I [...] (Latest Contact Info) Description 11/15/2024 11:15 AM HELPDESK SPECIALIST Clinical Communication Virtual Review in [place], [place] 200 [place] [address] 11/18/2024 3:00 PM HELPDESK SPECIALIST Ancillary Procedure Department of Ophthalmology in [place], [place] [address] [place] [phone] 11/18/2024 3:30 PM HELPDESK SPECIALIST Office Visit Department of Ophthalmology in [place], [place] [address] [place] [phone] Peña Carver M.D. [address] [place] [phone] 11/29/2024 Hospital Encounter Post Anesthesia Care Unit in [place], [place] [address] [place] [phone] Rafal Rankin M.D. [address] [place] [phone] 12/02/2024 1:30 PM HELPDESK SPECIALIST Comprehensive Visit Center for Sleep Medicine in [place], [place] [address] [place] [address] Damian Vargas APRN, C.N.P., M.S.N. [address] [place] [phone] 12/26/2024 12:00 PM HELPDESK SPECIALIST Telemedicine Department of Neurology in [place], [place] [address] [place] [phone] Oziel Odonnell M.D. 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
--- OUTSIDE RECORDS SUMMARY | 2024-11-12 14:18 | XMS_ITS | Encounter Summary ---
Author Organization [facility] Address [address] [place] [address] Care Team Providers Care Linseed Oil Refiner Name Role Phone Elsewhere, Pcp Primary Care Provider Unavailabl e Reason for Visit * Outpatient (Routine) - Closed Specialty Diagnoses / Procedures Referred By Karine velasco Referred To Contact Ophthalmology Kandace Shankar M.D. 200 [place] [address] Phone: tel: fax: [facility] Referral ID Status Reason Start Date Expiration Date Visits Re quested Visits Authorized [id number] Closed 05/20/2024 11/19/2025 1 1 Encounter Details Date Type Department Care Team (Latest Contact Info) Description 08/15/2024 4:15 PM CDT Office Visit Department of Ophthalmology in [place], [place] [address] [place] [phone] Kandace Shankar M.D. [address] [place] [phone] Diplopia (Primary Dx) Social History Tobacco Use Types Packs/Day Years Used Date Smoking Tobacco: Former Cigarettes Q uit: 1985 Smokeless Tobacco: Never Alcohol Use Standard Drinks/Week Comments Not Currently 0 (1 standard drink = 0.6 oz pur e alcohol) [facility] Utilities Answer Date Recorded In the past 12 months has e [employer], gas, oil, or water [employer] threatened to shut off services in your [...] PM CDT Legal Sex Male 8:22 AM HOSPICE BEREAVEMENT COORDINATOR Gender Identity Male 03/12/2024 1:38 PM [...] (Latest Contact Info) Description 11/15/2024 11:15 AM HOSPICE BEREAVEMENT COORDINATOR Clinical Communication Virtual Review in [address] [phone] 11/18/2024 3:00 PM HOSPICE BEREAVEMENT COORDINATOR Ancillary Procedure Department of Ophthalmology in [place], [place] [address] [place] [phone] 11/18/2024 3:30 PM HOSPICE BEREAVEMENT COORDINATOR Office Visit Department of Ophthalmology in [place], [place] [address] [place] [phone] Peña Carver M.D. [address] [place] [phone] 11/29/2024 Hospital Encounter Post Anesthesia Care Unit in [place], [place] [address] [place] [phone] Rafal Rankin M.D. [address] [place] [phone] 12/02/2024 1:30 PM HOSPICE BEREAVEMENT COORDINATOR Comprehensive Visit Center for Sleep Medicine in [place], [place] [address] [place] [phone] Damian Vargas, SPECIAL SYSTEMS TECHNICIAN, C.N.P., M.S.N. [address] [place] [phone] 12/26/2024 12:00 PM HOSPICE BEREAVEMENT COORDINATOR Telemedicine Department of Neurology in [place], [place] [address] [place] [phone] Oziel Odonnell M.D. 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
--- OUTSIDE RECORDS SUMMARY | 2024-11-12 14:18 | XMS_ITS | Encounter Summary ---
Author Organization [facility] Address [address] [place] [address] Care Team Providers Care Benefits Technician Name Role Phone Elsewhere, Pcp Primary Care Provider Unavailabl e Encounter Details Date Type Department Care Team (Late st Contact Info) Description 08/15/2024 Documentation Division of General Internal Medicine in [place], [place] [address] [place] [address] Thania Ulloa, Pharm.D., R.Ph. Social History Tobacco Use Types Packs/Day Years Used Date Smoking Tobacco: Former Cigarettes Q uit: 1985 Smokeless Tobacco: Never Alcohol Use Standard Drinks/Week Comments Not Currently 0 (1 standard drink = 0.6 oz pur e alcohol) [facility] Utilities Answer Date Recorded In the [...] your living situation today? I have a [facility] place to live 03/12/2024 Sex and Gender Information Value Date Recorded Sex Assigned at Male 03/12/2024 1:38 PM CDT Legal Sex Male 8:22 AM CIVIL PREPAREDNESS COORDINATOR Gender Identity Male 03/12/2024 1:38 PM [...] (Latest Contact Info) Description 11/15/2024 11:15 AM CIVIL PREPAREDNESS COORDINATOR Clinical Communication Virtual Review in [place], [place] 200 [place] [address] 11/18/2024 3:00 PM CIVIL PREPAREDNESS COORDINATOR Ancillary Procedure Department of Ophthalmology in [address] [address] 11/18/2024 3:30 PM CIVIL PREPAREDNESS COORDINATOR Office Visit Department of Ophthalmology in [place], [place] [address] [place] [phone] Peña Carver M.D. [address] [place] [phone] 11/29/2024 Hospital Encounter Post Anesthesia Care Unit in [place], [place] [address] [place] [phone] Rafal Rankin M.D. [address] [place] [phone] 12/02/2024 1:30 PM CIVIL PREPAREDNESS COORDINATOR Comprehensive Visit Center for Sleep Medicine in [address] [phone] Damian Vargas, SAND SCREENER, C.N.P., M.S.N. [address] [place] [phone] 12/26/2024 12:00 PM CIVIL PREPAREDNESS COORDINATOR Telemedicine Department of Neurology in [address] [address] Oziel Odonnell M.D. 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
--- OUTSIDE RECORDS SUMMARY | 2024-11-12 14:18 | XMS_ITS | Encounter Summary ---
Author Organization [facility] Address [address] [place] [address] Care Team Providers Care Cyber Special Agent Name Role Phone Elsewhere, Pcp Primary Care Provider Unavailabl e Reason for Visit * Reason Onset Date Comments Pre-visit Intake 10/22/2024 * Appointment Request (Routine) - Authorized Specialty Diagnoses / Procedures Referred By Karine velasco Referred To Contact Neurology Referral ID Status Reason Start Date Expiration Date V isits Requested Visits Authorized [id number] Authorized 08/07/2024 08/07/2025 1 1 Encounter Details Date Type Department Care Team (Latest Contact Info) Description 10/22/2024 8:30 AM HEAD OF MUSIC Clinical Communication Virtual Review in [place], [place] 200 [place] [address] Pre-visit Intake Social History Tobacco Use Types [...] PM CDT Legal Sex Male 8:22 AM HEAD OF MUSIC Gender Identity Male 03/12/2024 1:38 PM CDT Sexual Orientation Straight 03/12/2024 1: 38 PM CDT documented as of this encounter Plan of Treatment Upcoming Encounters Date Type Department Care Team (Latest Contact Info) Description 11/15/2024 11:15 AM HEAD OF MUSIC Clinical Communication Virtual Review in [place], [place] 200 [place] [address] 11/18/2024 3:00 PM HEAD OF MUSIC Ancillary Procedure Department of Ophthalmology in [address] [phone] 11/18/2024 3:30 PM HEAD OF MUSIC Office Visit Department of Ophthalmology in [place], [place] [address] [place] [phone] Peña Carver M.D. [address] [place] [phone] 11/29/2024 Hospital Encounter Post Anesthesia Care Unit in [place], [place] [address] [place] [phone] Rafal Rankin M.D. [address] [place] [phone] 12/02/2024 1:30 PM HEAD OF MUSIC Comprehensive Visit Center for Sleep Medicine in [address] [phone] Damian Vargas, OCEAN LIFEGUARD, C.N.P., M.S.N. [address] [place] [phone] 12/26/2024 12:00 PM HEAD OF MUSIC Telemedicine Department of Neurology in [address] [phone] Oziel Odonnell M.D. 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
--- OUTSIDE RECORDS SUMMARY | 2024-11-12 14:18 | XMS_ITS | Encounter Summary ---
Author Organization [facility] Address [address] [place] [address] Care Team Providers Care Educational Paraprofessional Name Role Phone Elsewhere, Pcp Primary Care Provider Unavailabl e Encounter Details Date Type Department Care Team (Latest Contact Info) Description 08/20/2024 2:16 PM CDT - 08/20/2024 11:59 PM CDT Hospital Encounter Department of Radiology, [facility] in [place], [place] [address] [place] [address] Cristiane Palacio, GRUPO, C.N.P., D.N.P. [address] [place] [address] Discharge Disposition: Home or Self Care Social History Tobacco Use Types Packs/Day Years Used Date Smoking Tobacco: Former Cigarettes Q uit: 1985 Smokeless Tobacco: Never Alcohol Use Standard Drinks/Week Comments Not Currently 0 (1 standard drink = 0.6 oz pur e alcohol) [facility] Utilities Answer Date Recorded In the past 12 months has [employer] electric, gas, oil, or water company threatened [...] living situation today? I have a [facility] place to live 03/12/2024 Sex and Gender Information Value Date Recorded Sex Assigned at Male 03/12/2024 1:38 PM CDT Legal Sex Male 8:22 AM SEO ASSOCIATE Gender Identity Male 03/12/2024 1:38 PM CDT [...] 1 each daily. durable medical equipment (DME). [employer] feed bag Ref# [id number]. Change bag every 24 hours. 03/27/2024 UNABLE TO FIND 1 each as needed (5 times daily for flushes as needed.). durable medical equipment (DME) 12ml enteral syringe [employer] with ENFIT CONNECTOR. 03/19/2024 documented as of this encounter Plan of Treatment Upcoming Encounters Date Type Department Care Team (Latest Contact Info) Description 11/15/2024 11:15 AM [facility] Clinical Communication Virtual Review in [place], [place] 200 [place] [address] 11/18/2024 3:00 PM SEO ASSOCIATE Ancillary Procedure Department of Ophthalmology in [address] [phone] 11/18/2024 3:30 PM SEO ASSOCIATE Office Visit Department of Ophthalmology in [address] [phone] Peña Carver M.D. [address] [place] [phone] 11/29/2024 Hospital Encounter Post Anesthesia Care Unit in [place], [place] [address] [place] [phone] Rafal Rankin M.D. [address] [place] [phone] 12/02/2024 1:30 PM SEO ASSOCIATE Comprehensive Visit Center for Sleep Medicine in [address] [phone] Damian Vargas, ALFALFA DEHYDRATOR OPERATOR, C.N.P., M.S.N. [address] [place] [phone] 12/26/2024 12:00 PM SEO ASSOCIATE Telemedicine Department of Neurology in [address] [phone] Oziel Odonnell M.D. [address] [place] [phone] Scheduled Procedures Name Priority Associated Diagnoses Date/Ti [...] on filedocumented in this encounter Care Teams Educational Paraprofessional Relationship Specialty Start Date End Date Elsewhere, Pcp PCP - General Family Medicine 02/26/24 documented as of this encounter
--- OUTSIDE RECORDS SUMMARY | 2024-11-12 14:18 | XMS_ITS | Encounter Summary ---
Author Organization [facility] Address [address] [place] [address] Care Team Providers Care Brick Burner Head Name Role Phone Elsewhere, Pcp Primary Care Provider Unavailabl e Encounter Details Date Type Department Care Team (Late st Contact Info) Description 08/15/2024 Clinical Communication Division of General Internal Medicine in [place], [place] [address] [place] [phone] Cristiane Palacio, GRUPO, C.N.P., D.N.P. [address] [place] [phone] Social History Tobacco Use Types Packs/Day Years Used Date Smoking Tobacco: Former Cigarettes Q uit: 1985 Smokeless Tobacco: Never Alcohol Use Standard Drinks/Week Comments Not Currently 0 (1 standard drink = 0.6 oz pur e alcohol) [facility] Utilities Answer Date Recorded In the [...] your living situation today? I have a [facility] place to live 03/12/2024 Sex and Gender Information Value Date Recorded Sex Assigned at Male 03/12/2024 1:38 PM CDT Legal Sex Male 8:22 AM WIRE STITCHER Gender Identity Male 03/12/2024 1:38 PM CDT Sexual Orientation Straight 03/12/2024 1: 38 PM CDT documented as of this encounter Plan of Treatment Upcoming Encounters Date Type Department Care Team (Latest Contact Info) Description 11/15/2024 11:15 AM WIRE STITCHER Clinical Communication Virtual Review in [place], [place] 200 [place] [address] 11/18/2024 3:00 PM WIRE STITCHER Ancillary Procedure Department of Ophthalmology in [place], [place] [address] [place] [phone] 11/18/2024 3:30 PM WIRE STITCHER Office Visit Department of Ophthalmology in [place], [place] [address] [place] [phone] Peña Carver M.D. [address] [place] [phone] 11/29/2024 Hospital Encounter Post Anesthesia Care Unit in [place], [place] [address] [place] [phone] Rafal Rankin M.D. [address] [place] [phone] 12/02/2024 1:30 PM WIRE STITCHER Comprehensive Visit Center for Sleep Medicine in [address] [phone] Damian Vargas, GRUPO, C.N.P., M.S.N. [address] [place] [phone] 12/26/2024 12:00 PM WIRE STITCHER Telemedicine Department of Neurology in [address] [phone] Oziel Odonnell M.D. [address] [place] [phone] Scheduled Procedures Name Priority Associated Diagnoses Date/Ti me TRACHEOSTOMY Paralysis Vocal Cord Bilateral Complete documented as of this encounter Visit Diagnoses Not on filedocumented in this encounter Care Teams Brick Burner Head Relationship Specialty Start Date End Date Elsewhere, Pcp PCP - General Family Medicine 02/26/24 documented as of this encounter
--- OUTSIDE RECORDS SUMMARY | 2024-11-12 14:18 | XMS_ITS | Encounter Summary ---
Author Organization [facility] Address [address] [place] [address] Care Team Providers Care Brick Washer Name Role Phone Elsewhere, Pcp Primary Care Provider Unavailabl e Reason for Visit * Speech Pathology (Routine) - Authorized Specialty Diagnoses / Procedures Referred By Karine velasco Referred To Contact Diagnoses Dysphagia Procedures COOK 3 PASTRY Dysphagia evaluate and treat Cristiane Palacio APRN, C.N.P., D.N.P. [address] [place] [phone] Phone: tel: fax: [facility] Referral ID Status Reason Start Date Expiration Date V isits Requested Visits Authorized [id number] Authorized 06/18/2024 06/18/2025 99 99 Encounter Details Date Type Department Care Team (Late st Contact Info) Description 08/15/2024 8:00 AM CDT Comprehensive Visit Department of Neurology in [place], [place] [address] [place] [phone] Cristiane Palacio APRN, C.N.P., D.N.P. [address] [place] [phone] Kriss Wharton M.S., [facility] 200 [place] [phone] Dysphagia Social History Tobacco Use Types Packs/Day Years Used Date Smoking Tobacco: Former Cigarettes Q uit: 1985 Smokeless Tobacco: Never Alcohol Use Standard Drinks/Week Comments Not Currently 0 (1 standard drink = 0.6 oz pur e alcohol) [facility] Utilities Answer Date Recorded In the past 12 months has e [employer], gas, oil, or water [employer] threatened to shut off services in your [...] PM CDT Legal Sex Male 8:22 AM DYE COLORIST DYER Gender Identity Male 03/12/2024 1:38 PM CDT Sexual Orientation Straight 03/12/2024 1: 38 PM CDT documented as of this encounter Consult Notes * Kriss Wharton M.S., CCC-COOK 3 PASTRY - 08/15/2024 8:00 AM CDT Mr. Guillen [...] (Latest Contact Info) Description 11/15/2024 11:15 AM DYE COLORIST DYER Clinical Communication Virtual Review in [place], [place] [address] [place] [address] 11/18/2024 3:00 PM DYE COLORIST DYER Ancillary Procedure Department of Ophthalmology in [place], [place] [address] [place] [phone] 11/18/2024 3:30 PM DYE COLORIST DYER Office Visit Department of Ophthalmology in [place], [place] [address] [place] [phone] Peña Carver M.D. [address] [place] [phone] 11/29/2024 Hospital Encounter Post Anesthesia Care Unit in [place], [place] [address] [place] [phone] Rafal Rankin M.D. [address] [place] [phone] 12/02/2024 1:30 PM DYE COLORIST DYER Comprehensive Visit Center for Sleep Medicine in [place], [place] [address] [place] [phone] Damian Vargas APRN, CEdithN.P., M.S.N. [address] [place] [phone] 12/26/2024 12:00 PM DYE COLORIST DYER Telemedicine Department of Neurology in [place], [place] [address] [place] [phone] Oziel Odonnell M.D. [address] [place] [phone] Scheduled Procedures Name Priority Associated Diagnoses Date/Ti me TRACHEOSTOMY Paralysis Vocal Cord Bilateral Complete documented as of this encounter Visit Diagnoses Diagnosis Dysphagia documented in this encounter Care Teams Brick Washer Relationship Specialty Start Date End Date Elsewhere, Pcp PCP - General Family Medicine 02/26/24 documented as of this encounter
--- OUTSIDE RECORDS SUMMARY | 2024-11-12 14:18 | XMS_ITS | Encounter Summary ---
Author Organization [facility] Address [address] [place] [address] Care Team Providers Care Wet Char Conveyor Tender Name Role Phone Elsewhere, Pcp Primary Care Provider Unavailabl e Reason for Referral * Outpatient (Routine) - Closed Specialty Diagnoses / Procedures Referred By Karine velasco Referred To Contact Diagnoses Dietary Counseling And Surveillance For Enteral Nutrition Procedures EGD Percutaneous Endoscopic Gastrostomy/Jejunostomy Cristiane Noel APRN, C.N.P., D.N.P. [address] [place] [address] Phone: tel: fax: [facility] Referral ID Status Reason Start Date Expiration Date Visits Re quested Visits Authorized [id number] Closed 06/18/2024 06/18/2025 1 1 Reason for Visit * Outpatient (Routine) - Closed Specialty Diagnoses / Procedures Referred By Karine velasco Referred To Contact Diagnoses Dietary Counseling And Surveillance For Enteral Nutrition Procedures EGD Percutaneous Endoscopic Gastrostomy/Jejunostomy Cristiane Noel APRN, C.N.P., D.N.P. [address] [place] [phone] Phone: tel: fax: [facility] Referral ID Status Reason Start Date Expiration Date Visits Re quested Visits Authorized [id number] Closed 06/18/2024 06/18/2025 1 1 Encounter Details Date Type Department Care Team (Latest Contact Info) Description 08/20/2024 1:38 PM CDT - 08/20/2024 3:26 PM CDT Hospital Encounter Division of Gastroenterology in [place], [place] [address] [place] [phone] Cristiane Noel, Brian LOMBARDON.P., D.N.P. [address] [place] [phone] Geovanna Aguilar APRN, SONIA [address] [place] [phone] Dietary Counseling And Surveillance For Enteral Nutrition [...] In the past 12 months has e [employer], gas, oil, or water [employer] threatened to shut off services in your [...] PM CDT Legal Sex Male 8:22 AM SUPERINTENDENT PIER Gender Identity Male 03/12/2024 1:38 PM CDT [...] 1 each daily. durable medical equipment (DME). [employer] feed bag Ref# [id number]. Change bag every 24 hours. 03/27/2024 UNABLE [...] Procedure Department : DIVISION OF GASTROENTEROLOGY IN [place], [place] SUBJECTIVE Past Medical History: Diagnosis Date [...] to live OBJECTIVE Procedure Patient presents to [place] [address] Patient being seen for: TGJ Type of [...] Reading and Seeing Education: PEG/PEJ Wallet Card ([id number]) Supplies sent with patient: None Did not measure tract as patient is planning on gaining weight. After discussion with patient and family, patient chose to forego stoma measurement until desired weight is achieved. documented in this encounter Plan of Treatment Upcoming Encounters Date Type Department Care Team (Latest Contact Info) Description 11/15/2024 11:15 AM SUPERINTENDENT PIER Clinical Communication Virtual Review in [place], [place] 200 [place] [address] 11/18/2024 3:00 PM SUPERINTENDENT PIER Ancillary Procedure Department of Ophthalmology in [place], [place] [address] [place] [phone] 11/18/2024 3:30 PM SUPERINTENDENT PIER Office Visit Department of Ophthalmology in [place], [place] [address] [place] [phone] Pñea Carver M.D. [address] [place] [phone] 11/29/2024 Hospital Encounter Post Anesthesia Care Unit in [place], [place] [address] [place] [phone] Rafal Rankin M.D. [address] [place] [phone] 12/02/2024 1:30 PM SUPERINTENDENT PIER Comprehensive Visit Center for [facility] Medicine in [place], [place] [address] [place] [phone] Damian Vargas APRN, C.N.P., M.S.N. [address] [place] [phone] 12/26/2024 12:00 PM SUPERINTENDENT PIER Telemedicine Department of Neurology in [place], [place] [address] [place] [phone] Oziel Odonnell M.D. [address] [place] [phone] Scheduled Procedures Name Priority Associated Diagnoses Date/Ti [...] PM CDT) 08/20/2024 2:56 PM CDT [facility] 3:33 PM CDT Post-op Diagnoses: - The PEG-J tube had been in place for an extended length of time and was removed and replaced with an 18 Fr Avanos HOLLY PEG-J tube. - No specimens collected. Narrative [facility] [place] - 08/20/2024 3:33 PM CDT Edilberto 6 [...] C.N.P., D.N.P. GI PROCEDURE ORDERABLES Final Result [facility] documented in this encounter Visit Diagnoses Diagnosis Dietary Counseling And Surveillance For Enteral Nutrition documented in this encounter Care Teams Wet Char Conveyor Tender Relationship Specialty Start Date End Date Elsewhere, Pcp PCP - General Family Medicine 02/26/24 documented as of this encounter
--- OUTSIDE RECORDS SUMMARY | 2024-11-12 14:18 | XMS_ITS | Encounter Summary ---
Author Organization [facility] Address [address] [place] [address] Care Team Providers Care Computer Help Desk Specialist Name Role Phone Elsewhere, Pcp Primary Care Provider Unavailabl e Encounter Details Date Type Department Care Team (Late st Contact Info) Description 08/15/2024 Orders Only Division of Endocrinology in [place], [place] [address] [place] [phone] Cristiane Palacio, GRUPO, C.N.P., D.N.P. [address] [place] [address] Dysphagia (Primary Dx) Social History Tobacco Use [...] PM CDT Legal Sex Male 8:22 AM PROCUREMENT ACCOUNTANT Gender Identity Male 03/12/2024 1:38 PM CDT Sexual Orientation Straight 03/12/2024 1: 38 PM CDT documented as of this encounter Plan of Treatment Upcoming Encounters Date Type Department Care Team (Latest Contact Info) Description 11/15/2024 11:15 AM PROCUREMENT ACCOUNTANT Clinical Communication Virtual Review in [place], [place] 200 [place] [address] 11/18/2024 3:00 PM PROCUREMENT ACCOUNTANT Ancillary Procedure Department of Ophthalmology in [place], [place] [address] [place] [phone] 11/18/2024 3:30 PM PROCUREMENT ACCOUNTANT Office Visit Department of Ophthalmology in [address] [phone] Peña Carver M.D. [address] [place] [phone] 11/29/2024 Hospital Encounter Post Anesthesia Care Unit in [place], [place] [address] [place] [phone] Rafal Rankin M.D. [address] [place] [phone] 12/02/2024 1:30 PM PROCUREMENT ACCOUNTANT Comprehensive Visit Center for Sleep Medicine in [address] [phone] Damian Vargas, CORPORATE COORDINATOR, C.N.P., M.S.N. [address] [place] [phone] 12/26/2024 12:00 PM PROCUREMENT ACCOUNTANT Telemedicine Department of Neurology in [address] [phone] Oziel Odonnell M.D. [address] [place] [phone] Scheduled Procedures Name Priority Associated Diagnoses Date/Ti me TRACHEOSTOMY Paralysis Vocal Cord Bilateral Complete documented as of this encounter Visit Diagnoses Diagnosis Dysphagia- Primary documented in this encounter Care Teams Computer Help Desk Specialist Relationship Specialty Start Date End Date Elsewhere, Pcp PCP - General Family Medicine 02/26/24 documented as of this encounter
--- OUTSIDE RECORDS SUMMARY | 2024-11-12 14:18 | XMS_ITS | Encounter Summary ---
Author Organization [facility] Address [address] [place] [address] Care Team Providers Care Traveling Engineer Name Role Phone Elsewhere, Pcp Primary Care Provider Unavailabl e Reason for Referral * Outpatient (Routine) - Closed Specialty Diagnoses / Procedures Referred By Karine velasco Referred To Contact Otorhinolaryngology Rafal Rankin M.D. 200 [place] [address] Phone: tel: fax: [facility] Referral ID Status Reason Start Date Expiration Date Visits Re quested Visits Authorized [id number] Closed 08/15/2024 02/14/2026 1 1 * Outpatient (Routine) - Authorized Specialty Diagnoses / Procedures Referred By Karine velasco Referred To Contact Sleep Medicine Diagnoses Sleep Apnea Rafal Rankin M.D. 200 [place] [address] Phone: tel: fax: [facility] Referral ID Status Reason Start Date Expiration Date Visits Requested Visits Authorized [id number] Authorized Specialty Services Required 08/15/2024 02/14/2026 1 1 Reason for Visit * Outpatient (Routine) - Closed Specialty Diagnoses / Procedures Referred By Karine velasco Referred To Contact Otorhinolaryngology Rafal Rankin M.D. [address] [place] [address] Phone: tel: fax: [facility] Referral ID Status Reason Start Date Expiration Date Visits Re quested Visits Authorized [id number] Closed 03/19/2024 09/18/2025 1 1 Encounter Details Date Type Department Care Team (Latest Contact Info) Description 08/15/2024 1:00 PM CDT Office Visit Department of Otorhinolaryngology in [place], [place] [address] [place] [phone] Rafal Rankin M.D. 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 I have a [facility] place to live 03/12/2024 Sex and Gender Information Value Date Recorded Sex Assigned at Male 03/12/2024 1:38 PM CDT Legal Sex Male 8:22 AM OUTPATIENT PHYSICAL THERAPIST Gender Identity Male 03/12/2024 1:38 PM CDT Sexual Orientation Straight 03/12/2024 1: 38 PM CDT documented as of this encounter Progress Notes * Rafal Rankin M.D. - 08/15/2024 1:00 PM CDT [facility] CHIEF COMPLAINT/PURPOSE OF VISIT: [...] behalf by RICKY Johnson, a trained medical language specialist. The creation of this record is based [...] (Latest Contact Info) Description 11/15/2024 11:15 AM OUTPATIENT PHYSICAL THERAPIST Clinical Communication Virtual Review in [place], [place] 200 [place] [address] 11/18/2024 3:00 PM OUTPATIENT PHYSICAL THERAPIST Ancillary Procedure Department of Ophthalmology in [address] [phone] 11/18/2024 3:30 PM OUTPATIENT PHYSICAL THERAPIST Office Visit Department of Ophthalmology in [place], [place] [address] [place] [phone] Peña Carver M.D. [address] [place] [phone] 11/29/2024 Hospital Encounter Post Anesthesia Care Unit in [place], [place] [address] [place] [phone] Rafal Rankin M.D. [address] [place] [phone] 12/02/2024 1:30 PM OUTPATIENT PHYSICAL THERAPIST Comprehensive Visit Center for Sleep Medicine in [address] [phone] Damian Vargas APRN, C.N.P., M.S.N. [address] [place] [phone] 12/26/2024 12:00 PM OUTPATIENT PHYSICAL THERAPIST Telemedicine Department of Neurology in [place], [place] [address] [place] [address] Oziel Odonnell M.D. [address] [place] [address] Scheduled Procedures Name Priority Associated Diagnoses Date/Ti [...] (HCC) documented in this encounter Care Teams Traveling Engineer Relationship Specialty Start Date End Date Elsewhere, Pcp PCP - General Family Medicine 02/26/24 documented as of this encounter
--- OUTSIDE RECORDS SUMMARY | 2024-11-12 14:19 | XMS_ITS | Encounter Summary ---
Author Organization [facility] Address [address] [place] [address] Care Team Providers Care Technician Inventory Specialist Name Role Phone Elsewhere, Pcp Primary Care Provider Unavailabl e Reason for Visit * Outpatient (Routine) - Closed Specialty Diagnoses / Procedures Referred By Karine velasco Referred To Contact Endocrinology Diagnoses Dietary Counseling And Surveillance For Enteral Nutrition Dysphagia Gastrojejunostomy Percutaneous Status Post Cristiane Palacio APRN, C.N.P., D.N.P. [address] [place] [phone] Phone: tel: fax: [facility] Referral ID Status Reason Start Date Expiration Date Visits Re quested Visits Authorized [id number] Closed 08/12/2024 02/11/2026 1 1 Encounter Details Date Type Department Care Team (Latest Contact Info) Description 08/13/2024 3:00 PM CDT Telemedicine Division of Endocrinology in [place], [place] [address] [place] [phone] Cristiane Palacio APRN, C.N.P., D.N.P. [address] [place] [phone] Naomi Huber, GRUPO, C.N.P. [address] [place] [address] Dietary Counseling And Surveillance For Enteral Nutrition; Dysphagia; Gastrojejunostomy Percutaneous Status Post Social History Tobacco Use Types Packs/Day Years Used Date Smoking Tobacco: Former Cigarettes Q uit: 1985 Smokeless Tobacco: Never Alcohol Use Standard Drinks/Week Comments Not Currently 0 (1 standard drink = 0.6 oz pur e alcohol) [facility] Utilities Answer Date Recorded In the past 12 months has e [employer], gas, oil, or water [employer] threatened to shut off services in your [...] living situation today? I have a [facility] place to live 03/12/2024 Sex and Gender Information Value Date Recorded Sex Assigned at Male 03/12/2024 1:38 PM CDT Legal Sex Male 8:22 AM PAPER CLEANER Gender Identity Male 03/12/2024 1:38 PM CDT [...] tube. On 08/09/2024, he was admitted to [facility] with nausea, vomiting, dyspnea and fever, [...] technology by Naomi Huber APRN, C.N.P. in [facility] to the patient in Patient's Home. He [...] a bile taste. He states that his prepared foods supervisor advised him to add Gaviscon double action [...] Clinic. Total time spent 40 minutes, including kgig-wc-aflb and non alfr-ha-ylom care time. documented in this encounter Plan of Treatment Upcoming Encounters Date Type Department Care Team (Latest Contact Info) Description 11/15/2024 11:15 AM PAPER CLEANER Clinical Communication Virtual Review in [place], [place] 200 [place] [address] 11/18/2024 3:00 PM PAPER CLEANER Ancillary Procedure Department of Ophthalmology in [address] [phone] 11/18/2024 3:30 PM PAPER CLEANER Office Visit Department of Ophthalmology in [place], [place] [address] [place] [phone] Peña Carver M.D. [address] [place] [phone] 11/29/2024 Hospital Encounter Post Anesthesia Care Unit in [place], [place] [address] [place] [phone] Rafal Rankin M.D. [address] [place] [phone] 12/02/2024 1:30 PM PAPER CLEANER Comprehensive Visit Center for Sleep Medicine in [place], [place] [address] [place] [phone] Damian Vargas, GRUPO, C.N.P., M.S.N. [address] [place] [phone] 12/26/2024 12:00 PM [facility] Telemedicine Department of Neurology in [place], [place] [address] [place] [phone] Oziel Odonnell M.D. [address] [place] [phone] Scheduled Procedures Name Priority Associated Diagnoses Date/Ti me TRACHEOSTOMY Paralysis Vocal Cord Bilateral Complete documented as of this encounter Visit Diagnoses Diagnosis Dietary Counseling And Surveillance For Enteral Nutrition Dysphagia Gastrojejunostomy Percutaneous Status Post documented in this encounter Care Teams Technician Inventory Specialist Relationship Specialty Start Date End Date Elsewhere, Pcp PCP - General Family Medicine 02/26/24 documented as of this encounter
--- OUTSIDE RECORDS SUMMARY | 2024-11-12 14:19 | XMS_ITS | Encounter Summary ---
Author Organization [facility] Address 200 [place] [address] Care Team Providers Care Agronomy Teacher Name Role Phone Elsewhere, Pcp Primary Care Provider Unavailabl e Reason for Visit * Auth/Cert (Routine) Specialty Diagnoses / Procedures Referred By Karine velasco Referred To Contact Diagnoses Sialorrhea Sialorrhea [K11.7] Procedures [place] CHEMODENERV PAROTID SUBMAN INJECTION BOTOX TO SALIVARY GLANDS 100 units total (25 units into each gland), ULTRASOUND GUIDANCE; PROCEED INDICATED Rafal Rankin M.D. 200 [place] [address] Phone: tel: fax: Referral ID Status Reason Start Date Expiration Date Visits Re quested Visits Authorized [id number] 1 1 Encounter Details Date Type Department Care Team (Late st Contact Info) Description 07/23/2024 1:46 PM CDT - 07/23/2024 2:44 PM CDT Surgery RST ROMB MAIN OR [address] [place] [phone] Rafal Rankin M.D. 200 [place] [phone] INJECTION BOTOX TO SUBMANDIBULAR GLANDS 50 units total, 25 units into each gland, ULTRASOUND GUIDANCE. Social History Tobacco Use Types Packs/Day Years Used Date Smoking Tobacco: Former Cigarettes Q uit: 1985 Smokeless Tobacco: Never Alcohol Use Standard Drinks/Week Comments Not Currently 0 (1 standard drink = 0.6 oz pur e alcohol) [facility] Utilities Answer Date Recorded In the past 12 months has e [employer], oil, or water [employer] threatened to shut off services in your [...] PM CDT Legal Sex Male 8:22 AM DEBRANDER Gender Identity Male 03/12/2024 1:38 PM CDT Sexual Orientation Straight 03/12/2024 1: 38 PM CDT documented as of this encounter Last Filed Vital Signs Vital Sign Reading Time Taken Comments Blood Pressure 110/81 07/23/2024 1:45 PM CDT Pulse 61 07/23/2024 1:55 PM CDT Temperature 36.8 C (98.2 F) 07/23/2024 1:40 [...] 1 each daily. durable medical equipment (DME). [facility] feed bag Ref# [id number]. Change bag every 24 hours. 03/27/2024 UNABLE [...] (Latest Contact Info) Description 11/15/2024 11:15 AM DEBRANDER Clinical Communication Virtual Review in [place], [place] 200 [place] [address] 11/18/2024 3:00 PM DEBRANDER Ancillary Procedure Department of Ophthalmology in [address] [phone] 11/18/2024 3:30 PM DEBRANDER Office Visit Department of Ophthalmology in [place], [place] [address] [place] [phone] Peña Carver M.D. [address] [place] [phone] 11/29/2024 Hospital Encounter Post Anesthesia Care Unit in [place], [place] [address] [place] [phone] Rafal Rankin M.D. [address] [place] [phone] 12/02/2024 1:30 PM DEBRANDER Comprehensive Visit Center for Sleep Medicine in [address] [phone] Damian Vargas, GRUPO, C.N.P., M.S.N. [address] [place] [phone] 12/26/2024 12:00 PM DEBRANDER Telemedicine Department of Neurology in [address] [phone] Oziel Odonnell M.D. [address] [place] [phone] Scheduled Procedures Name Priority Associated Diagnoses Date/Ti me TRACHEOSTOMY Paralysis Vocal Cord Bilateral Complete documented as of this encounter Procedures Procedure Name Priority Date/Time Associated Diagnosis Comments INJECTION BOTOX 07/23/2024 12:56 PM CDT Sialorrhea Case Notes ZONE SUPERVISOR [employer] at 11:23 documented in this encounter Visit [...] injection documented in this encounter Care Teams Agronomy Teacher Relationship Specialty Start Date End Date Elsewhere, Pcp PCP - General Family Medicine 02/26/24 documented as of this encounter
--- OUTSIDE RECORDS SUMMARY | 2024-11-12 14:19 | XMS_ITS | Encounter Summary ---
Author Organization [facility] Address [address] [place] [address] Care Team Providers Care Objects Conservator Name Role Phone Elsewhere, Pcp Primary Care Provider Unavailabl e Reason for Visit * Auth/Cert (Routine) Specialty Diagnoses / Procedures Referred By Karine velasco Referred To Contact Diagnoses Sialorrhea Sialorrhea [K11.7] Procedures [place] CHEMODENERV PAROTID SUBMAN INJECTION BOTOX TO SALIVARY GLANDS 100 units total (25 units into each gland), ULTRASOUND GUIDANCE; PROCEED INDICATED Rafal Rankin M.D. 200 [place] [address] Phone: tel: fax: Referral ID Status Reason Start Date Expiration Date Visits Re quested Visits Authorized [id number] 1 1 Encounter Details Date Type Department Care Team (Late st Contact Info) Description 07/23/2024 1:12 PM CDT Anesthesia Event RST ROMB MAIN OR [address] [place] [phone] Tayo Bradford D.O. 200 [place] [phone] Alan Mchugh M.D. [address] [place] [address] Anesthesia Record Procedure Summary Procedure Name Responsible [...] disk); Left, Lower, Quadrant (abdomen); Small bore (ENFit ); 08/20/24; 1509 05/15/24 0000 by Ankit Medina, R.NEdith 08/20/24 1509 by Robert Canales REdithNEdith Peripheral IV Placement Date: 07/14 ; Placement Time: 1259; Catheter Size: 20 G; Orientation: Distal, Left, Lower, Posterior; Location: Forearm; Site Prep: Chlorhexidine (Preferred); Technique: (2); Inserted by: basilio; Insertion Attempts: 1; Removal Date: 07/23/24; Removal Time: 140; Removal Reason: Completion of therapy 07/23/24 1259 by Ever Cornell 07/23/24 1403 by Ami Randall R.N. documented in this encounter Social History Tobacco Use Types Packs/Day Years Used Date Smoking Tobacco: Former Cigarettes Q uit: 1985 Smokeless Tobacco: Never Alcohol Use Standard Drinks/Week Comments Not Currently 0 (1 standard drink = 0.6 oz pur e alcohol) [facility] Utilities Answer Date Recorded In the past 12 months has e [employer], [employer], oil, or water [employer] threatened to shut off services in your [...] living situation today? I have a [facility] place to live 03/12/2024 Sex and Gender Information Value Date Recorded Sex Assigned at Male 03/12/2024 1:38 PM CDT Legal Sex Male 8:22 AM ENVIRONMENTAL PROJECT MANAGER Gender Identity Male 03/12/2024 1:38 PM CDT Sexual Orientation Straight 03/12/2024 1: 38 PM CDT documented as of this encounter OR Notes * Anesthesia Postprocedure Evaluation - Tao Laureano M.D. - 07/23/2024 1:47 PM CDT Patient: Vinh Guillen Procedure Summary Date: 07/23/24 Room / Location: [place] [address] / [facility] in [place], [place] Anesthesia Start: 1312 Anesthesia Stop: 1343 [...] Sialorrhea [K11.7] Pre-op diagnosis: Sialorrhea [K11.7]. Location: [place] [address] / [facility] in [place], [place] Providers: Rafal Rankin M.D. Pertinent components [...] patient / legal guardian, or through an audience development manager; patient evaluated and approved for anesthesia / sedation The use of blood products not discussed Approval to Proceed: approved for anesthesia documented in this encounter Plan of Treatment Upcoming Encounters Date Type Department Care Team (Latest Contact Info) Description 11/15/2024 11:15 AM ENVIRONMENTAL PROJECT MANAGER Clinical Communication Virtual Review in [place], [place] 200 [place] [address] 11/18/2024 3:00 PM ENVIRONMENTAL PROJECT MANAGER Ancillary Procedure Department of Ophthalmology in [place], [place] [address] [place] [phone] 11/18/2024 3:30 PM ENVIRONMENTAL PROJECT MANAGER Office Visit Department of Ophthalmology in [place], [place] [address] [place] [phone] Peña Carver M.D. [address] [place] [phone] 11/29/2024 Hospital Encounter Post Anesthesia Care Unit in [place], [place] [address] [place] [phone] Rafal Rankin M.D. [address] [place] [phone] 12/02/2024 1:30 PM ENVIRONMENTAL PROJECT MANAGER Comprehensive Visit Center for Sleep Medicine in [place], [place] [address] [place] [phone] Damian Vargas, GUITAR MAKER HAND, C.N.P., M.S.N. [address] [place] [phone] 12/26/2024 12:00 PM ENVIRONMENTAL PROJECT MANAGER Telemedicine Department of Neurology in [place], [place] [address] [place] [phone] Oziel Odonnell M.D. [address] [place] [phone] Scheduled Procedures Name Priority Associated Diagnoses Date/Ti [...] mL/hr documented in this encounter Care Teams Objects Conservator Relationship Specialty Start Date End Date Elsewhere, Pcp PCP - General Family Medicine 02/26/24 documented as of this encounter
--- OUTSIDE RECORDS SUMMARY | 2024-11-12 14:19 | XMS_ITS | Encounter Summary ---
Author Organization [facility] Address [address] [place] [address] Care Team Providers Care Screen Door Maker Name Role Phone Elsewhere, Pcp Primary Care Provider Unavailabl e Reason for Visit * Reason Onset Date Comments Patient Question 08/12/2024 Encounter Details Date Type Department Care Team (Latest Contact Info) Description 08/12/2024 Clinical Communication Division of General Internal Medicine in [place], [place] [address] [place] [address] Cristiane Palacio, GRUPO, C.N.P., D.N.P. [address] [place] [address] Patient Question Social History Tobacco Use Types Packs/Day Years Used Date Smoking Tobacco: Former Cigarettes Q uit: 1985 Smokeless Tobacco: Never Alcohol Use Standard Drinks/Week Comments Not Currently 0 (1 standard drink = 0.6 oz pur e alcohol) [facility] Utilities Answer Date Recorded In [...] your living situation today? I have a [facility] place to live 03/12/2024 Sex and Gender Information Value Date Recorded Sex Assigned at Male 03/12/2024 1:38 PM CDT Legal Sex Male 8:22 AM SPOT WELDER LINE Gender Identity Male 03/12/2024 1:38 PM CDT Sexual Orientation Straight 03/12/2024 1: 38 PM CDT documented as of this encounter Plan of Treatment Upcoming Encounters Date Type Department Care Team (Latest Contact Info) Description 11/15/2024 11:15 AM SPOT WELDER LINE Clinical Communication Virtual Review in [place], [place] [address] [place] [address] 11/18/2024 3:00 PM SPOT WELDER LINE Ancillary Procedure Department of Ophthalmology in [place], [place] [address] [place] [phone] 11/18/2024 3:30 PM SPOT WELDER LINE Office Visit Department of Ophthalmology in [place], [place] [address] [place] [phone] Peña Carver M.D. [address] [place] [phone] 11/29/2024 Hospital Encounter Post Anesthesia Care Unit in [place], [place] [address] [place] [phone] Rafal Rankin M.D. [address] [place] [phone] 12/02/2024 1:30 PM SPOT WELDER LINE Comprehensive Visit Center for Sleep Medicine in [place], [place] [address] [place] [phone] Damian Vargas, [employer], C.N.P., M.S.N. [address] [place] [phone] 12/26/2024 12:00 PM SPOT WELDER LINE Telemedicine Department of Neurology in [place], [place] [address] [place] [phone] Oziel Odonnell M.D. [address] [place] [phone] Scheduled Procedures Name Priority Associated Diagnoses Date/Ti me TRACHEOSTOMY Paralysis Vocal Cord Bilateral Complete documented as of this encounter Visit Diagnoses Not on filedocumented in this encounter Care Teams Screen Door Maker Relationship Specialty Start Date End Date Elsewhere, Pcp PCP - General Family Medicine 02/26/24 documented as of this encounter
--- OUTSIDE RECORDS SUMMARY | 2024-11-12 14:19 | XMS_ITS | Encounter Summary ---
Author Organization [facility] Address [address] [place] [address] Care Team Providers Care Cafeteria Table Attendant Name Role Phone Elsewhere, Pcp Primary Care Provider Unavailabl e Reason for Referral * Outpatient (Routine) - Closed Specialty Diagnoses / Procedures Referred By Karine velasco Referred To Contact Endocrinology Diagnoses Dietary Counseling And Surveillance For Enteral Nutrition Dysphagia Gastrojejunostomy Percutaneous Status Post Cristiane Palacio APRN, C.N.P., D.N.P. [address] [place] [phone] Phone: tel: fax: [facility] Referral ID Status Reason Start Date Expiration Date Visits Re quested Visits Authorized [id number] Closed 08/12/2024 02/11/2026 1 1 Scheduling Instructions Please schedule for RD and provider same day. * Outpatient (Routine) - Closed Specialty Diagnoses / Procedures Referred By Karine velasco Referred To Contact Nutrition Cristiane Palacio APRN, C.N.P., D.N.P. [address] [place] [address] [place] [phone] Phone: tel: fax: [facility] Referral ID Status Reason Start Date Expiration Date Visits Re quested Visits Authorized [id number] Closed 08/12/2024 02/11/2026 1 1 Scheduling Instructions Please schedule for RD and provider same day. Ok to use an RDN 11am Encounter Details Date Type Department Care Team (Late st Contact Info) Description 08/12/2024 Orders Only Department of Nutrition and Diabetes Education in [place], [place] [address] [place] [phone] Victoria Muir M.S., RDN, LD [address] [place] [phone] Dietary Counseling And Surveillance For Enteral Nutrition (Primary Dx); Dysphagia; Gastrojejunostomy Percutaneous Status Post Social History Tobacco Use Types Packs/Day Years Used Date Smoking Tobacco: Former Cigarettes Q uit: 1985 Smokeless Tobacco: Never Alcohol Use Standard Drinks/Week Comments Not Currently 0 (1 standard drink = 0.6 oz pur e alcohol) [facility] Utilities Answer Date Recorded In the past 12 months has e [employer], gas, oil, or water [employer] threatened to shut off services in your [...] CDT Legal Sex Male 8:22 AM RESEARCH SCIENTIST Gender Identity Male 03/12/2024 1:38 PM CDT Sexual Orientation Straight 03/12/2024 1: 38 PM CDT documented as of this encounter Plan of Treatment Upcoming Encounters Date Type Department Care Team (Latest Contact Info) Description 11/15/2024 11:15 AM RESEARCH SCIENTIST Clinical Communication Virtual Review in [place], [place] [address] [place] [address] 11/18/2024 3:00 PM RESEARCH SCIENTIST Ancillary Procedure Department of Ophthalmology in [place], [place] [address] [place] [phone] 11/18/2024 3:30 PM RESEARCH SCIENTIST Office Visit Department of Ophthalmology in [place], [place] [address] [place] [phone] Peña Carver M.D. [address] [place] [phone] 11/29/2024 Hospital Encounter Post Anesthesia Care Unit in [place], [place] [address] [place] [phone] Rafal Rankin M.D. [address] [place] [phone] 12/02/2024 1:30 PM RESEARCH SCIENTIST Comprehensive Visit Center for Sleep Medicine in [place], [place] [address] [place] [phone] Damian Vargas, GRUPO, C.N.P., M.S.N. [address] [place] [phone] 12/26/2024 12:00 PM RESEARCH SCIENTIST Telemedicine Department of Neurology in [place], [place] [address] [place] [phone] Oziel Odonnell M.D. [address] [place] [phone] Scheduled Procedures Name Priority Associated Diagnoses Date/Ti [...] Post documented in this encounter Care Teams Cafeteria Table Attendant Relationship Specialty Start Date End Date Elsewhere, Pcp PCP - General Family Medicine 02/26/24 documented as of this encounter
--- OUTSIDE RECORDS SUMMARY | 2024-11-12 14:19 | XMS_ITS | Encounter Summary ---
Author Organization [facility] Address [address] [place] [phone] Care Team Providers Care Pond Tender Name Role Phone Elsewhere, Pcp Primary Care Provider Unavailabl e Reason for Visit * Outpatient (Routine) - Closed Specialty Diagnoses / Procedures Referred By Karine velasco Referred To Contact Nutrition Cristiane Palacio APRN, C.N.P., D.N.P. [address] [place] [phone] Phone: tel: fax: [facility] Referral ID Status Reason Start Date Expiration Date Visits Re quested Visits Authorized [id number] Closed 08/12/2024 02/11/2026 1 1 Encounter Details Date Type Department Care Team (Late st Contact Info) Description 08/13/2024 2:00 PM CDT Telemedicine Department of Nutrition and Diabetes Education in [place], [place] [address] [place] [phone] Cristiane Palacio APRN, C.N.P., D.N.P. [address] [place] [phone] Victoria Muir M.S., RDN, LD [address] [place] [phone] Dietary Counseling And Surveillance For Enteral Nutrition [...] In the past 12 months has e [employer], gas, oil, or water [employer] threatened to shut off services in [...] CDT Legal Sex Male 8:22 AM PUBLIC HEALTH PROFESSOR Gender Identity Male 03/12/2024 1:38 PM CDT [...] audio/video technology by Victoria Muir RDN, TICO, [facility] in [facility] to the patient in patient's home. This Video Visit was performed during the COVID-19 emergency, when many states had issued [id number] orders. The patient and his presents via video. ASSESSMENT Relevant Social and Family History Resides in [place]. Medical Tests and Procedures/Biochemical Data VFSS (03/22/24): [...] didn't work very well Tube Information 18 [place] TGJ tube last replaced at [facility] [...] BMI: 21.8 Estimation of Nutritional Needs Calories: 4957-1420 kcals/day (25-30 kcal/kg - attempt now to [...] to 100 mL/hr, otherwise continue 125 mL/hr [id number] during the day Water Flushes: 120 mL [...] Patient is followed in [facility]: Encouraged them to contact us as needed. Time spent with patient (minutes): 30 documented in this encounter Plan of Treatment Upcoming Encounters Date Type Department Care Team (Latest Contact Info) Description 11/15/2024 11:15 AM PUBLIC HEALTH PROFESSOR Clinical Communication Virtual Review in [address] [phone] 11/18/2024 3:00 PM PUBLIC HEALTH PROFESSOR Ancillary Procedure Department of Ophthalmology in [address] [phone] 11/18/2024 3:30 PM PUBLIC HEALTH PROFESSOR Office Visit Department of Ophthalmology in [address] [phone] Peña Carver M.D. [address] [place] [phone] 11/29/2024 Hospital Encounter Post Anesthesia Care Unit in [place], [place] [address] [place] [phone] Rafal Rankin M.D. [address] [place] [phone] 12/02/2024 1:30 PM PUBLIC HEALTH PROFESSOR Comprehensive Visit Center for Sleep Medicine in [place], [place] [address] [place] [phone] Damian Vargas, GRUPO, C.N.P., M.S.N. [address] [place] [phone] 12/26/2024 12:00 PM PUBLIC HEALTH PROFESSOR Telemedicine Department of Neurology in [place], [place] [address] [place] [phone] Oziel Odonnell M.D. [address] [place] [phone] Scheduled Procedures Name Priority Associated Diagnoses Date/Ti me TRACHEOSTOMY Paralysis Vocal Cord Bilateral Complete documented as of this encounter Visit Diagnoses Diagnosis Dietary Counseling And Surveillance For Enteral Nutrition- Primary Pneumonitis Due To Inhalation Of Food And Vomit (HCC) Gastrojejunostomy Percutaneous Status Post Dysphagia documented in this encounter Care Teams Pond Tender Relationship Specialty Start Date End Date Elsewhere, Pcp PCP - General Family Medicine 02/26/24 documented as of this encounter
--- OUTSIDE RECORDS SUMMARY | 2024-11-12 14:19 | XMS_ITS | Encounter Summary ---
Author Organization 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 [address] [place] [address] Phone: tel: fax: [facility] Referral ID Status Reason Start Date Expiration Date Visits Re quested Visits Authorized [id number] Closed 08/06/2024 02/05/2026 1 1 Encounter Details Date Type Department Care Team (Latest Contact Info) Description 08/06/2024 Orders Only Department of Otorhinolaryngology in [place], [place] [address] [place] [phone] Rafal Rankin M.D. 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 I have a [facility] place to live 03/12/2024 Sex and Gender Information Value Date Recorded Sex Assigned at Male 03/12/2024 1:38 PM CDT Legal Sex Male 8:22 AM HYDRAULIC ENGINEER Gender Identity Male 03/12/2024 1:38 PM CDT Sexual Orientation Straight 03/12/2024 1: 38 PM CDT documented as of this encounter Plan of Treatment Upcoming Encounters Date Type Department Care Team (Latest Contact Info) Description 11/15/2024 11:15 AM HYDRAULIC ENGINEER Clinical Communication Virtual Review in [place], [place] [address] [place] [address] 11/18/2024 3:00 PM HYDRAULIC ENGINEER Ancillary Procedure Department of Ophthalmology in [place], [place] [address] [place] [phone] 11/18/2024 3:30 PM HYDRAULIC ENGINEER Office Visit Department of Ophthalmology in [place], [place] [address] [place] [phone] Peña Carver M.D. [address] [place] [phone] 11/29/2024 Hospital Encounter Post Anesthesia Care Unit in [place], [place] [address] [place] [phone] Rafal Rankin M.D. [address] [place] [phone] 12/02/2024 1:30 PM HYDRAULIC ENGINEER Comprehensive Visit Center for Sleep Medicine in [place], [place] [address] [place] [phone] Damian Vargas, GRUPO, C.N.P., M.S.N. [address] [place] [phone] 12/26/2024 12:00 PM HYDRAULIC ENGINEER Telemedicine Department of Neurology in [place], [place] [address] [place] [phone] Oziel Odonnell M.D. [address] [place] [phone] Scheduled Procedures Name Priority Associated Diagnoses Date/Ti [...] Primary documented in this encounter Care Teams Checker Dump Grounds Relationship Specialty Start Date End Date Elsewhere, Pcp PCP - General Family Medicine 02/26/24 documented as of this encounter
--- OUTSIDE RECORDS SUMMARY | 2024-11-12 14:19 | XMS_ITS | Encounter Summary ---
Author Organization [facility] Address [address] [place] [address] Care Team Providers Care Gas Station Clerk Name Role Phone Elsewhere, Pcp Primary Care Provider Unavailabl e Reason for Referral * Outpatient (Routine) - Closed Specialty Diagnoses / Procedures Referred By Karine velasco Referred To Contact Diagnoses Sialorrhea Procedures US Guidance Intraoperative Rafal Rankin M.D. 200 [place] [address] Phone: tel: fax: [facility] Referral ID Status Reason Start Date Expiration Date Visits Re quested Visits Authorized [id number] Closed 06/19/2024 06/19/2025 1 1 Reason for Visit * Auth/Cert (Routine) Specialty Diagnoses / Procedures Referred By Karine velasco Referred To Contact Diagnoses Sialorrhea Sialorrhea [K11.7] Procedures [place] CHEMODENERV PAROTID SUBMAN INJECTION BOTOX TO SALIVARY GLANDS 100 units total (25 units into each gland), ULTRASOUND GUIDANCE; PROCEED INDICATED Rafal Rankin M.D. 200 [place] [address] Phone: tel: fax: Referral ID Status Reason Start Date Expiration Date Visits Re quested Visits Authorized [id number] 1 1 Encounter Details Date Type Department Care Team (Latest Contact Info) Description 07/23/2024 10:00 AM CDT - 07/23/2024 11:18 AM CDT Hospital Encounter Department of Radiology, [facility] in [place], [place] [address] [place] [address] Rafal Rankin M.D. [address] [place] [phone] Sialorrhea Discharge Disposition: Home or Self Care Social History Tobacco Use Types Packs/Day Years Used Date Smoking Tobacco: Former Cigarettes Q uit: 1984 Smokeless Tobacco: Never Alcohol Use Standard Drinks/Week Comments Not Currently 0 (1 standard drink = 0.6 oz pur e alcohol) [facility] Utilities Answer Date Recorded In the past 12 months has [employer], gas, oil, or water [employer] threatened to shut off services in your [...] living situation today? I have a [facility] place to live 03/12/2024 Sex and Gender Information Value Date Recorded Sex Assigned at Male 03/12/2024 1:38 PM CDT Legal Sex Male 8:22 AM DINKEY OPERATOR SLATE Gender Identity Male 03/12/2024 1:38 PM CDT [...] 1 each daily. durable medical equipment (DME). [employer] feed bag Ref# [id number]. Change bag every 24 hours. 03/27/2024 UNABLE TO FIND 1 each as needed (5 times daily for flushes as needed.). durable medical equipment (DME) 12ml enteral syringe [employer] with ENFIT CONNECTOR. 03/19/2024 documented as of this encounter Plan of Treatment Upcoming Encounters Date Type Department Care Team (Latest Contact Info) Description 11/15/2024 11:15 AM DINKEY OPERATOR SLATE Clinical Communication Virtual Review in [place], [place] 200 [place] [address] 11/18/2024 3:00 PM DINKEY OPERATOR SLATE Ancillary Procedure Department of Ophthalmology in [place], [place] [address] [place] [phone] 11/18/2024 3:30 PM DINKEY OPERATOR SLATE Office Visit Department of Ophthalmology in [place], [place] [address] [place] [phone] Peña Carver M.D. [address] [place] [phone] 11/29/2024 Hospital Encounter Post Anesthesia Care Unit in [place], [place] [address] [place] [phone] Rafal Rankin M.D. [address] [place] [phone] 12/02/2024 1:30 PM DINKEY OPERATOR SLATE Comprehensive Visit Center for Sleep Medicine in [place], [place] [address] [place] [phone] Damian Vargas, GRUPO, C.N.P., M.S.N. [address] [place] [phone] 12/26/2024 12:00 PM [facility] Telemedicine Department of Neurology in [place], [place] [address] [place] [address] Oziel Odonnell M.D. [address] [place] [phone] Scheduled Procedures Name Priority Associated Diagnoses Date/Ti [...] into each gland. us Rafal Rankin M.D. IMFrandy US PROCEDURES Final Res ult documented in this encounter Visit Diagnoses Diagnosis Sialorrhea documented in this encounter Care Teams Gas Station Clerk Relationship Specialty Start Date End Date Elsewhere, Pcp PCP - General Family Medicine 02/26/24 documented as of this encounter
--- OUTSIDE RECORDS SUMMARY | 2024-11-12 14:19 | XMS_ITS | Encounter Summary ---
Author Organization [facility] Address [address] [place] [address] Care Team Providers Care Trust And Estates Attorney Name Role Phone Elsewhere, Pcp Primary Care Provider Unavailabl e Encounter Details Date Type Department Care Team (Latest Contact Info) Description 07/24/2024 Clinical Communication Division of Endocrinology in [place], [place] [address] [place] [address] Cristiane Palacio, GRUPO, C.N.P., D.N.P. [address] [place] [address] Social History Tobacco Use Types Packs/Day Years Used Date Smoking Tobacco: Former Cigarettes Q uit: 1985 Smokeless Tobacco: Never Alcohol Use Standard Drinks/Week Comments Not Currently 0 (1 standard drink = 0.6 oz pur e alcohol) [facility] Utilities Answer Date Recorded In the [...] living situation today? I have a [facility] place to live 03/12/2024 Sex and Gender Information Value Date Recorded Sex Assigned at Male 03/12/2024 1:38 PM CDT Legal Sex Male 8:22 AM MECHANICAL FACILITIES TECHNICIAN Gender Identity Male 03/12/2024 1:38 PM [...] (Latest Contact Info) Description 11/15/2024 11:15 AM MECHANICAL FACILITIES TECHNICIAN Clinical Communication Virtual Review in [place], [place] 200 [place] [address] 11/18/2024 3:00 PM MECHANICAL FACILITIES TECHNICIAN Ancillary Procedure Department of Ophthalmology in [address] [phone] 11/18/2024 3:30 PM MECHANICAL FACILITIES TECHNICIAN Office Visit Department of Ophthalmology in [address] [phone] Peña Carver M.D. [address] [place] [phone] 11/29/2024 Hospital Encounter Post Anesthesia Care Unit in [place], [place] [address] [place] [phone] Rafal Rankin M.D. [address] [place] [phone] 12/02/2024 1:30 PM MECHANICAL FACILITIES TECHNICIAN Comprehensive Visit Center for Sleep Medicine in [address] [phone] Damian Vargas, GRUPO, C.N.P., M.S.N. [address] [place] [phone] 12/26/2024 12:00 PM MECHANICAL FACILITIES TECHNICIAN Telemedicine Department of Neurology in [place], [place] [address] [place] [address] Oziel Odonnell M.D. 200 [place] [address] Scheduled Procedures Name Priority Associated Diagnoses Date/Ti me TRACHEOSTOMY Paralysis Vocal Cord Bilateral Complete documented as of this encounter Visit Diagnoses Not on filedocumented in this encounter Care Teams Trust And Estates Attorney Relationship Specialty Start Date End Date Elsewhere, Pcp PCP - General Family Medicine 02/26/24 documented as of this encounter
--- OUTSIDE RECORDS SUMMARY | 2024-11-12 14:19 | XMS_ITS | Encounter Summary ---
Author Organization [facility] Address [address] [place] [address] Care Team Providers Care Customer Care Team Coach Name Role Phone Elsewhere, Pcp Primary Care Provider Unavailabl e Encounter Details Date Type Department Care Team (Latest Contact Info) Description 08/06/2024 Clinical Communication Department of Otorhinolaryngology in [place], [place] [address] [place] [address] Rafal Rankin M.D. [address] [place] [phone] Social History Tobacco Use Types Packs/Day Years [...] PM CDT Legal Sex Male 8:22 AM GREASE RACK WORKER Gender Identity Male 03/12/2024 1:38 PM [...] (Latest Contact Info) Description 11/15/2024 11:15 AM GREASE RACK WORKER Clinical Communication Virtual Review in [place], [place] 200 [place] [address] 11/18/2024 3:00 PM GREASE RACK WORKER Ancillary Procedure Department of Ophthalmology in [address] [phone] 11/18/2024 3:30 PM GREASE RACK WORKER Office Visit Department of Ophthalmology in [place], [place] [address] [place] [phone] Peña Carver M.D. [address] [place] [phone] 11/29/2024 Hospital Encounter Post Anesthesia Care Unit in [place], [place] [address] [place] [phone] Rafal Rankin M.D. [address] [place] [phone] 12/02/2024 1:30 PM GREASE RACK WORKER Comprehensive Visit [facility] in [place], [place] [address] [place] [phone] Damian Vargas, GRUPO, C.N.P., M.S.N. [address] [place] [phone] 12/26/2024 12:00 PM [facility] Telemedicine Department of Neurology in [place], [place] [address] [place] [phone] Oziel Odonnell M.D. [address] [place] [phone] Scheduled Procedures Name Priority Associated Diagnoses Date/Ti me TRACHEOSTOMY Paralysis Vocal Cord Bilateral Complete documented as of this encounter Visit Diagnoses Not on filedocumented in this encounter Care Teams Customer Care Team Coach Relationship Specialty Start Date End Date Elsewhere, Pcp PCP - General Family Medicine 02/26/24 documented as of this encounter
--- OUTSIDE RECORDS SUMMARY | 2024-11-12 14:20 | XMS_ITS | Encounter Summary ---
Author Organization [facility] Address [address] [place] [address] Care Team Providers Care Home Day Care Provider Name Role Phone Elsewhere, Pcp Primary Care Provider Unavailabl e Reason for Visit * Outpatient (Routine) - Closed Specialty Diagnoses / Procedures Referred By Karine velasco Referred To Contact Otorhinolaryngology Rafal Rankin M.D. 200 [place] [address] Phone: tel: fax: [facility] Referral ID Status Reason Start Date Expiration Date Visits Re quested Visits Authorized [id number] Closed 07/17/2024 01/16/2026 1 1 Encounter Details Date Type Department Care Team (Latest Contact Info) Description 07/18/2024 1:00 PM CDT Office Visit Department of Otorhinolaryngology in [place], [place] [address] [place] [address] Rafal Rankin M.D. 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 - 07/18/2024 1:00 PM CDT [facility] CHIEF COMPLAINT/PURPOSE OF VISIT: [...] after seeing Dr. Cervantes yesterday at [facility]. Mood was a little down today [...] (Latest Contact Info) Description 11/15/2024 11:15 AM COMPOSITE BOND TECHNICIAN Clinical Communication Virtual Review in [place], [place] 200 [place] [address] 11/18/2024 3:00 PM COMPOSITE BOND TECHNICIAN Ancillary Procedure Department of Ophthalmology in [address] [address] 11/18/2024 3:30 PM COMPOSITE BOND TECHNICIAN Office Visit Department of Ophthalmology in [place], [place] [address] [place] [phone] Peña Carver M.D. [address] [place] [phone] 11/29/2024 Hospital Encounter Post Anesthesia Care Unit in [place], [place] [address] [place] [phone] Rafal Rankin M.D. [address] [place] [phone] 12/02/2024 1:30 PM COMPOSITE BOND TECHNICIAN Comprehensive Visit [facility] in [place], [place] [address] [place] [phone] Damian Vargas, GRUPO, C.N.P., M.S.N. [address] [place] [address] 12/26/2024 12:00 PM [facility] Telemedicine Department of Neurology in [place], [place] [address] [place] [address] Oziel Odonnell M.D. 

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
--- OUTSIDE RECORDS SUMMARY | 2024-11-12 14:20 | XMS_ITS | Encounter Summary ---
Author Organization [facility] Address [address] [place] [address] Care Team Providers Care Funeral Director/Embalmer/Owner Name Role Phone Elsewhere, Pcp Primary Care Provider Unavailabl e Reason for Referral * Outpatient (Routine) - Closed Specialty Diagnoses / Procedures Referred By Karine velasco Referred To Contact Diagnoses Dietary Counseling And Surveillance For Enteral Nutrition Procedures EGD Percutaneous Endoscopic Gastrostomy/Jejunostomy Cristiane Palacio APRN, C.N.P., D.N.P. [address] [place] [address] Phone: tel: fax: [facility] Referral ID Status Reason Start Date Expiration Date Visits Re quested Visits Authorized [id number] Closed 06/18/2024 06/18/2025 1 1 Encounter Details Date Type Department Care Team (Late st Contact Info) Description 06/18/2024 Orders Only Division of Endocrinology in [place], [place] [address] [place] [address] Ankit Medina R.N. Dietary Counseling And Surveillance For Enteral Nutrition (Primary Dx) Social History Tobacco Use Types Packs/Day Years Used Date Smoking Tobacco: Former Cigarettes Q uit: 1985 Smokeless Tobacco: Never Alcohol Use Standard Drinks/Week Comments Not Currently 0 (1 standard drink = 0.6 oz pur e alcohol) [facility] Utilities Answer Date Recorded In the past 12 months has e [employer], gas, oil, or water [employer] threatened to shut off services in your [...] Answer Date Recorded Dental: Regular Dentist Yes 04/30/20 24 Employment Answer Date Recorded Employment status Retired 03/12/2024 Housing Stability Answer Date Recorded What is your living situation today? I have a [facility] place to live 03/12/2024 Sex and Gender Information Value Date Recorded Sex Assigned at Male 03/12/2024 1:38 PM CDT Legal Sex Male 8:22 AM JUNIOR WEB DEVELOPER Gender Identity Male 03/12/2024 1:38 PM CDT Sexual Orientation Straight 03/12/2024 1: 38 PM CDT documented as of this encounter Plan of Treatment Upcoming Encounters Date Type Department Care Team (Latest Contact Info) Description 11/15/2024 11:15 AM JUNIOR WEB DEVELOPER Clinical Communication Virtual Review in [place], [place] 200 [place] [address] 11/18/2024 3:00 PM JUNIOR WEB DEVELOPER Ancillary Procedure Department of Ophthalmology in [place], [place] [address] [place] [phone] 11/18/2024 3:30 PM JUNIOR WEB DEVELOPER Office Visit Department of Ophthalmology in [place], [place] [address] [place] [phone] Peña Carver M.D. [address] [place] [phone] 11/29/2024 Hospital Encounter Post Anesthesia Care Unit in [place], [place] [address] [place] [phone] Rafal Rankin M.D. [address] [place] [phone] 12/02/2024 1:30 PM JUNIOR WEB DEVELOPER Comprehensive Visit [facility] for [facility] in [place], [place] [address] [place] [phone] Damian Vargas APRN, C.N.P., M.S.N. [address] [place] [phone] 12/26/2024 12:00 PM JUNIOR WEB DEVELOPER Telemedicine Department of Neurology in [place], [place] [address] [place] [phone] Oziel Odonnell M.D. [address] [place] [phone] Scheduled Procedures Name Priority Associated Diagnoses Date/Ti me TRACHEOSTOMY Paralysis Vocal Cord Bilateral Complete documented as of this encounter Visit Diagnoses Diagnosis Dietary Counseling And Surveillance For Enteral Nutrition- Primary documented in this encounter Care Teams Funeral Director/Embalmer/Owner Relationship Specialty Start Date End Date Elsewhere, Pcp PCP - General Family Medicine 02/26/24 documented as of this encounter
--- OUTSIDE RECORDS SUMMARY | 2024-11-12 14:20 | XMS_ITS | Encounter Summary ---
Author Organization [facility] Address [address] [place] [address] Care Team Providers Care Retail Wireless Sales Consultant Name Role Phone Elsewhere, Pcp Primary [...] 0.6 oz pur e alcohol) [facility] Utilities Answer Date Recorded In the past 12 months has [employer] gas, oil, or water [employer] threatened to shut off services in your [...] PM CDT Legal Sex Male 8:22 AM SEARCH AND RESCUE OFFICER Gender Identity Male 03/12/2024 1:38 PM CDT Sexual Orientation Straight 03/12/2024 1: 38 PM CDT documented as of this encounter Plan of Treatment Upcoming Encounters Date Type Department Care Team (Latest Contact Info) Description 11/15/2024 11:15 AM SEARCH AND RESCUE OFFICER Clinical Communication Virtual Review in [place], [place] 200 [place] [address] 11/18/2024 3:00 PM SEARCH AND RESCUE OFFICER Ancillary Procedure Department of Ophthalmology in [place], [place] [address] [place] [phone] 11/18/2024 3:30 PM SEARCH AND RESCUE OFFICER Office Visit Department of Ophthalmology in [place], [place] [address] [place] [phone] Peña Carver M.D. [address] [place] [phone] 11/29/2024 Hospital Encounter Post Anesthesia Care Unit in [place], [place] [address] [place] [phone] Rafal Rankin M.D. [address] [place] [phone] 12/02/2024 1:30 PM SEARCH AND RESCUE OFFICER Comprehensive Visit [facility] in [place], [place] [address] [place] [phone] Damian Vargas APRN, C.N.P., M.S.N. [address] [place] [phone] 12/26/2024 12:00 PM SEARCH AND RESCUE OFFICER Telemedicine Department of Neurology in [place], [place] [address] [place] [phone] Oziel Odonnell M.D. [address] [place] [phone] Scheduled Procedures Name Priority Associated Diagnoses Date/Ti [...] filedocumented in this encounter Care Teams Retail Wireless Sales Consultant Relationship Specialty Start Date End Date Elsewhere, Pcp PCP - General Family Medicine 02/26/24 documented as of this encounter
--- OUTSIDE RECORDS SUMMARY | 2024-11-12 14:20 | XMS_ITS | Encounter Summary ---
Author Organization [facility] Address [address] [place] [address] Care Team Providers Care Addiction Psychiatrist Name Role Phone Elsewhere, Pcp Primary Care Provider Unavailabl e Reason for Visit * Reason Comments Feeding Tube Encounter Details Date Type Department Care Team (Latest Contact Info) Description 06/18/2024 10:00 AM CDT Clinical Support Division of Endocrinology in [place], [place] [address] [place] [address] Stan Hernandez M.D. Neldner, Indra K, R.N. Dysphagia; Stenosis Laryngeal; Pneumonitis Due To Inhalation Of Food And Vomit (HCC) Social History Tobacco Use Types Packs/Day Years Used Date Smoking Tobacco: Former Cigarettes Q uit: 1985 Smokeless Tobacco: Never Alcohol Use Standard Drinks/Week Comments Not Currently 0 (1 standard drink = 0.6 oz pur e alcohol) [facility] Utilities Answer Date Recorded In the past [...] your living situation today? I have a [facility] place to live 03/12/2024 Sex and Gender Information Value Date Recorded Sex Assigned at Male 03/12/2024 1:38 PM CDT Legal Sex Male 8:22 AM SENIOR ANDROID SOFTWARE ENGINEER Gender Identity Male 03/12/2024 1:38 PM [...] in this encounter Progress Notes * Ankit Medina, R.N. - 06/18/2024 10:00 AM CDT SUBJECTIVE [...] GJ tube Tube size: 18 Tube brand: OneCard Tube reference number: [id number] Connector type: Small Bore (Enfit) Date last replaced: 05/15/2024 Patient reported replaced locally at [facility] Skin disk level: 3.5 cm moved to 4 cm Internal anchor device: Balloon, not checked Site condition: Tube site is concave in nature, just above an abdominal fold. Scant mucous drainagewith very small ridge of granulation tissue [phone].The granulation tissue from 5923-1119 was scabbed over. circumferential erythema under skin [...] Self replacement: NA Special order tube: GI/IR screed person notified? NA PLAN Is there a procedure [...] handout discussed and demonstrated. Granulation tissue from 0811-0140 treated with 1 stick of silver nitrate [...] with the TGJ tube, because they enjoy [employer] boarding. We discussed that his tube site [...] future tube care and replacements done at [facility]. *Per HEN provider Cristiane Palacio CNP nurse [...] (Latest Contact Info) Description 11/15/2024 11:15 AM SENIOR ANDROID SOFTWARE ENGINEER Clinical Communication Virtual Review in [place], [place] 200 [place] [address] 11/18/2024 3:00 PM SENIOR ANDROID SOFTWARE ENGINEER Ancillary Procedure Department of Ophthalmology in [place], [place] [address] [place] [phone] 11/18/2024 3:30 PM SENIOR ANDROID SOFTWARE ENGINEER Office Visit Department of Ophthalmology in [place], [place] [address] [place] [phone] Peña Carver M.D. [address] [place] [phone] 11/29/2024 Hospital Encounter Post Anesthesia Care Unit in [place], [place] [address] [place] [phone] Rafal Rankin M.D. [address] [place] [phone] 12/02/2024 1:30 PM SENIOR ANDROID SOFTWARE ENGINEER Comprehensive Visit [facility] in [place], [place] [address] [place] [phone] Damian Vargas, Kristine LOMBARDO, M.S.N. [address] [place] [phone] 12/26/2024 12:00 PM SENIOR ANDROID SOFTWARE ENGINEER Telemedicine Department of Neurology in [place], [place] [address] [place] [phone] Oziel Odonnell M.D. [address] [place] [phone] Scheduled Procedures Name Priority Associated Diagnoses Date/Ti me TRACHEOSTOMY Paralysis Vocal Cord Bilateral Complete documented as of this encounter Visit Diagnoses Diagnosis Dysphagia Stenosis Laryngeal Pneumonitis Due To Inhalation Of Food And Vomit (HCC) documented in this encounter Care Teams Addiction Psychiatrist Relationship Specialty Start Date End Date Elsewhere, Pcp PCP - General Family Medicine 02/26/24 documented as of this encounter
--- OUTSIDE RECORDS SUMMARY | 2024-11-12 14:20 | XMS_ITS | Encounter Summary ---
Author Organization [facility] Address [address] [place] [address] Care Team Providers Care Fountain Worker Name Role Phone Elsewhere, Pcp Primary [...] Recorded In the past 12 months has [employer] gas, oil, or water [employer] threatened to shut off services in your [...] PM CDT Legal Sex Male 8:22 AM OIL TANKER CAPTAIN Gender Identity Male 03/12/2024 1:38 PM CDT Sexual Orientation Straight 03/12/2024 1: 38 PM CDT documented as of this encounter Plan of Treatment Upcoming Encounters Date Type Department Care Team (Latest Contact Info) Description 11/15/2024 11:15 AM OIL TANKER CAPTAIN Clinical Communication Virtual Review in [place], [place] 200 [place] [address] 11/18/2024 3:00 PM OIL TANKER CAPTAIN Ancillary Procedure Department of Ophthalmology in [place], [place] [address] [place] [phone] 11/18/2024 3:30 PM OIL TANKER CAPTAIN Office Visit Department of Ophthalmology in [place], [place] [address] [place] [phone] Peña Carver M.D. [address] [place] [phone] 11/29/2024 Hospital Encounter Post Anesthesia Care Unit in [place], [place] [address] [place] [phone] Rafal Rankin M.D. [address] [place] [phone] 12/02/2024 1:30 PM OIL TANKER CAPTAIN Comprehensive Visit [facility] in [place], [place] [address] [place] [phone] Damian Vargas APRN, C.N.P., M.S.N. [address] [place] [phone] 12/26/2024 12:00 PM OIL TANKER CAPTAIN Telemedicine Department of Neurology in [place], [place] [address] [place] [phone] Oziel Odonnell M.D. [address] [place] [phone] Scheduled Procedures Name Priority Associated Diagnoses Date/Ti [...] on filedocumented in this encounter Care Teams Fountain Worker Relationship Specialty Start Date End Date Elsewhere, Pcp PCP - General Family Medicine 02/26/24 documented as of this encounter
--- OUTSIDE RECORDS SUMMARY | 2024-11-12 14:20 | XMS_ITS | Encounter Summary ---
Author Organization [facility] Address [address] [place] [address] Care Team Providers Care Line Mover Name Role Phone Elsewhere, Pcp Primary Care Provider Unavailabl e Reason for Visit * Outpatient (Routine) - Closed Specialty Diagnoses / Procedures Referred By Karine velasco Referred To Contact Otorhinolaryngology Rafal Rankin M.D. 200 [place] [address] Phone: tel: fax: [facility] Referral ID Status Reason Start Date Expiration Date Visits Re quested Visits Authorized [id number] Closed 06/17/2024 12/17/2025 1 1 Encounter Details Date Type Department Care Team (Latest Contact Info) Description 06/25/2024 9:00 AM CDT Telemedicine Department of Otorhinolaryngology in [place], [place] [address] [place] [phone] Rafal Rankin M.D. [address] [place] [phone] Sialorrhea (Primary Dx); Dysphagia; Traumatic Subarachnoid Hemorrhage [...] In the past 12 months has e [employer], gas, oil, or water [employer] threatened to shut off services in your [...] PM CDT Legal Sex Male 8:22 AM DOPE FIRER Gender Identity Male 03/12/2024 1:38 PM CDT Sexual Orientation Straight 03/12/2024 1: 38 PM CDT documented as of this encounter Progress Notes * Rafal Rankin M.D. - 06/25/2024 9:00 AM CDT [facility] VIRTUAL VISIT The patient was present for a consult via real-time video technology by Dr. Rankin on 06/25/24 in [employer] to the patient in the patient's home [...] (Latest Contact Info) Description 11/15/2024 11:15 AM DOPE FIRER Clinical Communication Virtual Review in [place], [place] [address] [place] [address] 11/18/2024 3:00 PM DOPE FIRER Ancillary Procedure Department of Ophthalmology in [place], [place] [address] [place] [phone] 11/18/2024 3:30 PM DOPE FIRER Office Visit Department of Ophthalmology in [place], [place] [address] [place] [phone] Peña Carver M.D. [address] [place] [phone] 11/29/2024 Hospital Encounter Post Anesthesia Care Unit in [place], [place] [address] [place] [phone] Rafal Rankin M.D. [address] [place] [phone] 12/02/2024 1:30 PM DOPE FIRER Comprehensive Visit [facility] in [place], [place] [address] [place] [address] Damian Vargas, GRUPO, C.N.P., M.S.N. [address] [place] [phone] 12/26/2024 12:00 PM [facility] Telemedicine Department of Neurology in [place], [place] [address] [place] [phone] Oziel Odonnell M.D. [address] [place] [phone] Scheduled Procedures Name Priority Associated Diagnoses Date/Ti me TRACHEOSTOMY Paralysis Vocal Cord Bilateral Complete documented as of this encounter Visit Diagnoses Diagnosis Sialorrhea- Primary Dysphagia Traumatic Subarachnoid Hemorrhage Without Loss Of Consciousness Sequela (HCC) Pneumonitis Due To Inhalation Of Food And Vomit (HCC) documented in this encounter Care Teams Line Mover Relationship Specialty Start Date End Date Elsewhere, Pcp PCP - General Family Medicine 02/26/24 documented as of this encounter
--- OUTSIDE RECORDS SUMMARY | 2024-11-12 14:20 | XMS_ITS | Encounter Summary ---
Author Organization [facility] Address [address] [place] [address] Care Team Providers Care Speeder Worker Name Role Phone Elsewhere, Pcp Primary [...] Recorded In the past 12 months has [employer], gas, oil, or water [employer] threatened to shut off services in your [...] PM CDT Legal Sex Male 8:22 AM ELECTRIC MILKERS INSTALLER Gender Identity Male 03/12/2024 1:38 PM CDT Sexual Orientation Straight 03/12/2024 1: 38 PM CDT documented as of this encounter Plan of Treatment Upcoming Encounters Date Type Department Care Team (Latest Contact Info) Description 11/15/2024 11:15 AM ELECTRIC MILKERS INSTALLER Clinical Communication Virtual Review in [place], [place] [address] [place] [phone] 11/18/2024 3:00 PM ELECTRIC MILKERS INSTALLER Ancillary Procedure Department of Ophthalmology in [place], [place] [address] [place] [phone] 11/18/2024 3:30 PM ELECTRIC MILKERS INSTALLER Office Visit Department of Ophthalmology in [place], [place] [address] [place] [phone] Peña Carver M.D. [address] [place] [phone] 11/29/2024 Hospital Encounter Post Anesthesia Care Unit in [place], [place] [address] [place] [phone] Rafal Rankin M.D. [address] [place] [phone] 12/02/2024 1:30 PM ELECTRIC MILKERS INSTALLER Comprehensive Visit [facility] in [place], [place] [address] [place] [phone] Damian Vargas, GRUPO, C.N.P., M.S.N. [address] [place] [phone] 12/26/2024 12:00 PM ELECTRIC MILKERS INSTALLER Telemedicine Department of Neurology in [place], [place] [address] [place] [phone] Oziel Odonnell M.D. [address] [place] [phone] Scheduled Procedures Name Priority Associated Diagnoses Date/Ti [...] on filedocumented in this encounter Care Teams Speeder Worker Relationship Specialty Start Date End Date Elsewhere, Pcp PCP - General Family Medicine 02/26/24 documented as of this encounter
--- OUTSIDE RECORDS SUMMARY | 2024-11-12 14:20 | XMS_ITS | Encounter Summary ---
Author Organization [facility] Address [address] [place] [address] Care Team Providers Care Chemistry Specialist Name Role Phone Elsewhere, Pcp Primary Care Provider Unavailabl e Reason for Visit * Auth/Cert (Routine) Specialty Diagnoses / Procedures Referred By Karine velsaco Referred To Contact Diagnoses Sialorrhea Sialorrhea [K11.7] Procedures NV CHEMODENERV PAROTID SUBMAN INJECTION BOTOX TO SALIVARY GLANDS 100 units total (25 units into each gland), ULTRASOUND GUIDANCE; PROCEED INDICATED Rafal Rankin M.D. 200 [place] [address] Phone: tel: fax: Referral ID Status Reason Start Date Expiration Date Visits Re quested Visits Authorized [id number] 1 1 Encounter Details Date Type Department Care Team (Latest Contact Info) Description 07/23/2024 11:19 AM CDT - 07/23/2024 2:16 PM CDT Hospital Encounter [facility] [address] [place] [phone] Rafal Rankin M.D. 200 [place] [phone] Discharge Disposition: Home or Self Care Social History Tobacco Use Types Packs/Day Years Used Date Smoking Tobacco: Former Cigarettes Q uit: 1985 Smokeless Tobacco: Never Alcohol Use Standard Drinks/Week Comments Not Currently 0 (1 standard drink = 0.6 oz pur e alcohol) [facility] Utilities Answer Date Recorded In the past 12 months has e Endorphin, gas, oil, or water [employer] threatened to shut off services in your [...] PM CDT Legal Sex Male 8:22 AM TRACKMAN Gender Identity Male 03/12/2024 1:38 PM CDT [...] 1 each daily. durable medical equipment (DME). Glopho feed bag Ref# [id number]. Change bag every 24 hours. 03/27/2024 UNABLE [...] (Latest Contact Info) Description 11/15/2024 11:15 AM TRACKMAN Clinical Communication Virtual Review in [place], [place] 200 [place] [address] 11/18/2024 3:00 PM TRACKMAN Ancillary Procedure Department of Ophthalmology in [place], [place] [address] [place] [phone] 11/18/2024 3:30 PM TRACKMAN Office Visit Department of Ophthalmology in [place], [place] [address] [place] [phone] Peña Carver M.D. [address] [place] [phone] 11/29/2024 Hospital Encounter Post Anesthesia Care Unit in [place], [place] [address] [place] [phone] Rafal Rankin M.D. [address] [place] [phone] 12/02/2024 1:30 PM TRACKMAN Comprehensive Visit Center for Sleep Medicine in [address] [phone] Damian Vargas, CONFIGURATION MANAGEMENT SPECIALIST, C.N.P., M.S.N. [address] [place] [phone] 12/26/2024 12:00 PM TRACKMAN Telemedicine Department of Neurology in [place], [place] [address] [place] [phone] Oziel Odonnell M.D. [address] [place] [phone] Scheduled Procedures Name Priority Associated Diagnoses Date/Ti me TRACHEOSTOMY Paralysis Vocal Cord Bilateral Complete documented as of this encounter Procedures Procedure Name Priority Date/Time Associated Diagnosis Comments INJECTION BOTOX 07/23/2024 12:56 PM CDT Sialorrhea Case Notes FINAL FINISHER at 11:23 documented in this encounter Visit [...] injection documented in this encounter Care Teams Chemistry Specialist Relationship Specialty Start Date End Date Elsewhere, Pcp PCP - General Family Medicine 02/26/24 documented as of this encounter
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
--- OUTSIDE RECORDS SUMMARY | 2024-11-12 14:20 | XMS_ITS | Encounter Summary ---
Author Organization [facility] Address [address] [place] [address] Care Team Providers Care Research Mechanic Name Role Phone Elsewhere, Pcp Primary Care Provider Unavailabl e Reason for Referral * Outpatient (Routine) - Closed Specialty Diagnoses / Procedures Referred By Karine velasco Referred To Contact Ophthalmology Diagnoses Diplopia Kandace Shankar M.D. [address] [place] [address] Phone: tel: fax: [facility] Referral ID Status Reason Start Date Expiration Date Visits Re quested Visits Authorized [id number] Closed 05/20/2024 11/19/2025 1 1 Scheduling Instructions Coordinate with return visit in Neuro-Ophthalmology with Dr. Shankar Encounter Details Date Type Department Care Team (Late st Contact Info) Description 05/20/2024 Orders Only Department of Ophthalmology in [place], [place] [address] [place] [phone] Kandace Shankar M.D. [address] [place] [address] Diplopia (Primary Dx) Social History Tobacco Use Types Packs/Day Years Used Date Smoking Tobacco: Former Cigarettes Q uit: 1985 Smokeless Tobacco: Never Alcohol Use Standard Drinks/Week Comments Not Currently 0 (1 standard drink = 0.6 oz pur e alcohol) [facility] Utilities Answer Date Recorded In the past 12 months has e [employer], gas, oil, or water [employer] threatened to shut off services in your [...] your living situation today? I have a [facility] place to live 03/12/2024 Sex and Gender Information Value Date Recorded Sex Assigned at Male 03/12/2024 1:38 PM CDT Legal Sex Male 8:22 AM MANNEQUIN COLORING ARTIST Gender Identity Male 03/12/2024 1:38 PM CDT Sexual Orientation Straight 03/12/2024 1: 38 PM CDT documented as of this encounter Plan of Treatment Upcoming Encounters Date Type Department Care Team (Latest Contact Info) Description 11/15/2024 11:15 AM MANNEQUIN COLORING ARTIST Clinical Communication Virtual Review in [place], [place] [address] [place] [address] 11/18/2024 3:00 PM MANNEQUIN COLORING ARTIST Ancillary Procedure Department of Ophthalmology in [place], [place] [address] [place] [phone] 11/18/2024 3:30 PM MANNEQUIN COLORING ARTIST Office Visit Department of Ophthalmology in [place], [place] [address] [place] [phone] Peña Carver M.D. [address] [place] [phone] 11/29/2024 Hospital Encounter Post Anesthesia Care Unit in [place], [place] [address] [place] [phone] Rafal Rankin M.D. [address] [place] [phone] 12/02/2024 1:30 PM MANNEQUIN COLORING ARTIST Comprehensive Visit Center for Sleep Medicine in [place], [place] [address] [place] [phone] Damian Vargas, GRUPO, C.N.P., M.S.N. [address] [place] [phone] 12/26/2024 12:00 PM MANNEQUIN COLORING ARTIST Telemedicine Department of Neurology in [place], [place] [address] [place] [address] [place] [phone] Oziel Odonnell M.D. [address] [place] [address] Scheduled Procedures Name Priority Associated Diagnoses Date/Ti me TRACHEOSTOMY Paralysis Vocal Cord Bilateral Complete Scheduled Referrals Name Type Priority Associated Diagnoses Order Schedule Ophthalmology - Adult strabismus consult (clinic) Outpatient Referral Routine Diplopia Expected: 08/20/2024, Expires: 08/20/2025 documented as of this encounter Visit Diagnoses Diagnosis Diplopia- Primary documented in this encounter Care Teams Research Mechanic Relationship Specialty Start Date End Date Elsewhere, Pcp PCP - General Family Medicine 02/26/24 documented as of this encounter
--- OUTSIDE RECORDS SUMMARY | 2024-11-12 14:20 | XMS_ITS | Encounter Summary ---
Author Organization [facility] Address [address] [place] [address] Care Team Providers Care Rag Washer Name Role Phone Elsewhere, Pcp Primary Care Provider Unavailabl e Reason for Referral * Outpatient (Routine) - Closed Specialty Diagnoses / Procedures Referred By Karine velasco Referred To Contact Otorhinolaryngology Rafal Rankin M.D. [address] [place] [address] Phone: tel: fax: [facility] Referral ID Status Reason Start Date Expiration Date Visits Re quested Visits Authorized [id number] Closed 06/17/2024 12/17/2025 1 1 Encounter Details Date Type Department Care Team (Late st Contact Info) Description 06/17/2024 Orders Only Department of Otorhinolaryngology in [place], [place] [address] [place] [phone] Rafal Rankin M.D. [address] [place] [phone] Social History Tobacco Use Types Packs/Day Years [...] PM CDT Legal Sex Male 8:22 AM AUTOMOBILE RENTAL AGENT Gender Identity Male 03/12/2024 1:38 PM CDT Sexual Orientation Straight 03/12/2024 1: 38 PM CDT documented as of this encounter Plan of Treatment Upcoming Encounters Date Type Department Care Team (Latest Contact Info) Description 11/15/2024 11:15 AM AUTOMOBILE RENTAL AGENT Clinical Communication Virtual Review in [place], [place] [address] [place] [address] 11/18/2024 3:00 PM AUTOMOBILE RENTAL AGENT Ancillary Procedure Department of Ophthalmology in [place], [place] [address] [place] [phone] 11/18/2024 3:30 PM AUTOMOBILE RENTAL AGENT Office Visit Department of Ophthalmology in [place], [place] [address] [place] [phone] Peña Carver M.D. [address] [place] [phone] 11/29/2024 Hospital Encounter Post Anesthesia Care Unit in [place], [place] [address] [place] [phone] Rafal Rankin M.D. [address] [place] [phone] 12/02/2024 1:30 PM AUTOMOBILE RENTAL AGENT Comprehensive Visit Center for Sleep Medicine in [place], [place] [address] [place] [phone] Damian Vargas, GRUPO, C.N.P., M.S.N. [address] [place] [phone] 12/26/2024 12:00 PM AUTOMOBILE RENTAL AGENT Telemedicine Department of Neurology in [place], [place] [address] [place] [phone] Oziel Odonnell M.D. [address] [place] [address] Scheduled Procedures Name Priority Associated Diagnoses Date/Ti me TRACHEOSTOMY Paralysis Vocal Cord Bilateral Complete Scheduled Referrals Name Type Priority Associated Diagnoses Order Schedule Otorhinolaryngology office visit (clinic) Outpatient Referral Routine Expected: 06/17/2024, Expires: 09/17/2025 documented as of this encounter Visit Diagnoses Not on filedocumented in this encounter Care Teams Rag Washer Relationship Specialty Start Date End Date Elsewhere, Pcp PCP - General Family Medicine 02/26/24 documented as of this encounter
--- OUTSIDE RECORDS SUMMARY | 2024-11-12 14:20 | XMS_ITS | Encounter Summary ---
Author Organization [facility] Address [address] [place] [address] Care Team Providers Care Court Commissioner Name Role Phone Elsewhere, Pcp Primary Care Provider Unavailabl e Reason for Visit * Reason Comments Scheduling Encounter Details Date Type Department Care Team (Late st Contact Info) Description 06/18/2024 Documentation Division of Endocrinology in [place], [place] [address] [place] [address] Imelda Morejon, REdithN. Scheduling Social History Tobacco Use Types Packs/Day Years Used Date Smoking Tobacco: Former Cigarettes Q uit: 1985 Smokeless Tobacco: Never Alcohol Use Standard Drinks/Week Comments Not Currently 0 (1 standard drink = 0.6 oz pur e alcohol) [facility] Utilities Answer Date Recorded In [...] PM CDT Legal Sex Male 8:22 AM CIRCULATING PROCESS INSPECTOR Gender Identity Male 03/12/2024 1:38 PM CDT Sexual Orientation Straight 03/12/2024 1: 38 PM CDT documented as of this encounter Progress Notes * Imelda Escamilla REdithN. - 06/18/2024 3:24 PM CDT Order [...] a 30 minute slot, no anesthesia at --[facility], any complex doctor to do. Mona [...] (Latest Contact Info) Description 11/15/2024 11:15 AM CIRCULATING PROCESS INSPECTOR Clinical Communication Virtual Review in [place], [place] 200 [place] [address] 11/18/2024 3:00 PM CIRCULATING PROCESS INSPECTOR Ancillary Procedure Department of Ophthalmology in [address] [phone] 11/18/2024 3:30 PM CIRCULATING PROCESS INSPECTOR Office Visit Department of Ophthalmology in [place], [place] [address] [place] [phone] Peña Carver M.D. [address] [place] [phone] 11/29/2024 Hospital Encounter Post Anesthesia Care Unit in [place], [place] [address] [place] [phone] Rafal Rankin M.D. [address] [place] [phone] 12/02/2024 1:30 PM CIRCULATING PROCESS INSPECTOR Comprehensive Visit Center for Sleep Medicine in [place], [place] [address] [place] [phone] Damian Vargas APRN, C.N.P., M.S.N. [address] [place] [phone] 12/26/2024 12:00 PM CIRCULATING PROCESS INSPECTOR Telemedicine Department of Neurology in [place], [place] [address] [place] [address] Oziel Odonnell M.D. 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
--- OUTSIDE RECORDS SUMMARY | 2024-11-12 14:20 | XMS_ITS | Encounter Summary ---
Author Organization [facility] Address [address] [place] [address] Care Team Providers Care Line Maintainer Name Role Phone Elsewhere, Pcp Primary Care Provider Unavailabl e Encounter Details Date Type Department Care Team (Latest Contact Info) Description 06/18/2024 Clinical Communication Department of Otorhinolaryngology in [place], [place] [address] [place] [address] Rafal Rankin M.D. [address] [place] [phone] Social History Tobacco Use Types Packs/Day Years [...] PM CDT Legal Sex Male 8:22 AM CUSTOMER CARE ASSISTANT Gender Identity Male 03/12/2024 1:38 PM CDT Sexual Orientation Straight 03/12/2024 1: 38 PM CDT documented as of this encounter Plan of Treatment Upcoming Encounters Date Type Department Care Team (Latest Contact Info) Description 11/15/2024 11:15 AM CUSTOMER CARE ASSISTANT Clinical Communication Virtual Review in [address] [phone] 11/18/2024 3:00 PM CUSTOMER CARE ASSISTANT Ancillary Procedure Department of Ophthalmology in [place], [place] [address] [place] [phone] 11/18/2024 3:30 PM CUSTOMER CARE ASSISTANT Office Visit Department of Ophthalmology in [place], [place] [address] [place] [phone] Peña Carver M.D. [address] [place] [phone] 11/29/2024 Hospital Encounter Post Anesthesia Care Unit in [place], [place] [address] [place] [phone] Rafal Rankin M.D. [address] [place] [phone] 12/02/2024 1:30 PM CUSTOMER CARE ASSISTANT Comprehensive Visit Center for Sleep Medicine in [place], [place] [address] [place] [phone] Damian Vargas, USED CAR SALESPERSON, C.N.P., M.S.N. [address] [place] [phone] 12/26/2024 12:00 PM CUSTOMER CARE ASSISTANT Telemedicine Department of Neurology in [place], [place] [address] [place] [phone] Oziel Odonnell M.D. 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
--- OUTSIDE RECORDS SUMMARY | 2024-11-12 14:20 | XMS_ITS | Encounter Summary ---
Author Organization [facility] Address [address] [place] [address] Care Team Providers Care Fuel Retrofitting Technician Name Role Phone Elsewhere, Pcp Primary Care Provider Unavailabl e Reason for Visit * Outpatient (Routine) - Closed Specialty Diagnoses / Procedures Referred By Karine velasco Referred To Contact Nutrition Diagnoses Dysphagia Stenosis Laryngeal Pneumonitis Due To Inhalation Of Food And Vomit (HCC) Stan Hernandez M.D. [facility] Referral ID Status Reason Start Date Expiration Date Visits Re quested Visits Authorized [id number] Closed 05/09/2024 11/08/2025 1 1 Encounter Details Date Type Department Care Team (Latest Contact Info) Description 06/18/2024 9:00 AM CDT Clinical Support Department of Nutrition and Diabetes Education in [place], [place] [address] [place] [address] Stan Hernandez M.D. Johnson, Danelle A, M.S., RDN, LD [address] [place] [address] Dietary Counseling And Surveillance For Enteral Nutrition (Primary Dx); Dysphagia; Stenosis Laryngeal; Pneumonitis Due To Inhalation Of Food And Vomit (HCC); Gastrojejunostomy Percutaneous Status Post Social History Tobacco Use Types Packs/Day Years Used Date Smoking Tobacco: Former Cigarettes Q uit: 1985 Smokeless Tobacco: Never Alcohol Use Standard Drinks/Week Comments Not Currently 0 (1 standard drink = 0.6 oz pur e alcohol) [facility] Utilities Answer Date Recorded In the [...] living situation today? I have a [facility] place to live 03/12/2024 Sex and Gender Information Value Date Recorded Sex Assigned at Male 03/12/2024 1:38 PM CDT Legal Sex Male 8:22 AM WASHER CARCASS Gender Identity Male 03/12/2024 1:38 PM CDT [...] Relevant Social and Family History Resides in [place]. Medical Tests and Procedures/Biochemical Data VFSS (03/22/24): [...] Normal Muscle Mass: Normal Tube Information 18 Croatian TGJ tube last replaced at [facility] 05/15/24 Food/Nutrient Related History Oral Intake: [...] BMI: 22.2 Estimation of Nutritional Needs Calories: 4727-0780 kcals/day (30-35 kcal/kg) Protein: 88-110 grams/day (1.2-1.5 [...] that will provide needed supplies for home: [employer] in [place] - they are unhappy with what they [...] Patient is followed in [facility]: He will contact us as needed. Time spent with patient (minutes): 60 documented in this encounter Plan of Treatment Upcoming Encounters Date Type Department Care Team (Latest Contact Info) Description 11/15/2024 11:15 AM WASHER CARCASS Clinical Communication Virtual Review in [place], [place] [address] [place] [address] 11/18/2024 3:00 PM WASHER CARCASS Ancillary Procedure Department of Ophthalmology in [place], [place] [address] [place] [address] 11/18/2024 3:30 PM WASHER CARCASS Office Visit Department of Ophthalmology in [place], [place] [address] [place] [phone] Peña Carver M.D. [address] [place] [phone] 11/29/2024 Hospital Encounter Post Anesthesia Care Unit in [place], [place] [address] [place] [phone] Rafal Rankin M.D. [address] [place] [phone] 12/02/2024 1:30 PM WASHER CARCASS Comprehensive Visit Center for Sleep Medicine in [place], [place] [address] [place] [phone] Damian Vargas, BILINGUAL INSIDE SALES REPRESENTATIVE, C.N.P., M.S.N. [address] [place] [phone] 12/26/2024 12:00 PM WASHER CARCASS Telemedicine Department of Neurology in [place], [place] [address] [place] [phone] Oziel Odonnell M.D. 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
--- OUTSIDE RECORDS SUMMARY | 2024-11-12 14:20 | XMS_ITS | Encounter Summary ---
Author Organization [facility] Address [address] [place] [address] Care Team Providers Care Industrial Mechanic Name Role Phone Elsewhere, Pcp Primary Care Provider Unavailabl e Reason for Referral * Speech Pathology (Routine) - Authorized Specialty Diagnoses / Procedures Referred By Karine velasco Referred To Contact Diagnoses Dysphagia Procedures ADDICTIONS COUNSELOR Dysphagia evaluate and treat Cristiane Palacio APRN, C.N.P., D.N.P. [address] [place] [address] Phone: tel: fax: [facility] Referral ID Status Reason Start Date Expiration Date V isits Requested Visits Authorized [id number] Authorized 06/18/2024 06/18/2025 99 99 Encounter Details Date Type Department Care Team (Late st Contact Info) Description 06/18/2024 Orders Only Division of Endocrinology in [place], [place] [address] [place] [address] Cristiane Palacio APRN, C.N.P., D.N.P. [address] [place] [address] Dysphagia (Primary Dx) Social History Tobacco Use Types Packs/Day Years Used Date Smoking Tobacco: Former Cigarettes Q uit: 1984 Smokeless Tobacco: Never Alcohol Use Standard Drinks/Week Comments Not Currently 0 (1 standard drink = 0.6 oz pur e alcohol) [facility] Utilities Answer Date Recorded In the past 12 months has e [employer], [employer], oil, or water [employer] threatened to shut off services in [...] PM CDT Legal Sex Male 8:22 AM ADMIN PROG COORD Gender Identity Male 03/12/2024 1:38 PM CDT Sexual Orientation Straight 03/12/2024 1: 38 PM CDT documented as of this encounter Plan of Treatment Upcoming Encounters Date Type Department Care Team (Latest Contact Info) Description 11/15/2024 11:15 AM ADMIN PROG COORD Clinical Communication Virtual Review in [place], [place] 200 [place] [address] 11/18/2024 3:00 PM ADMIN PROG COORD Ancillary Procedure Department of Ophthalmology in [place], [place] [address] [place] [phone] 11/18/2024 3:30 PM ADMIN PROG COORD Office Visit Department of Ophthalmology in [place], [place] [address] [place] [phone] Peña Carver M.D. [address] [place] [phone] 11/29/2024 Hospital Encounter Post Anesthesia Care Unit in [place], [place] [address] [place] [phone] Rafal Rankin M.D. [address] [place] [phone] 12/02/2024 1:30 PM ADMIN PROG COORD Comprehensive Visit [facility] in [place], [place] [address] [place] [phone] Damian Vargas, GRUPO, C.N.P., M.S.N. [address] [place] [phone] 12/26/2024 12:00 PM ADMIN PROG COORD Telemedicine Department of Neurology in [place], [place] 200 [place] [address] Oziel Odonnell M.D. 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
--- OUTSIDE RECORDS SUMMARY | 2024-11-12 14:20 | XMS_ITS | Encounter Summary ---
Author Organization [facility] Address [address] [place] [address] Care Team Providers Care Coke Handling Supervisor Name Role Phone Elsewhere, Pcp Primary Care Provider Unavailabl e Reason for Referral * Outpatient (Routine) - Closed Specialty Diagnoses / Procedures Referred By Karine velasco Referred To Contact Diagnoses Sialorrhea Procedures US Guidance Intraoperative Rafal Rankin M.D. [address] [place] [address] Phone: tel: fax: [facility] Referral ID Status Reason Start Date Expiration Date Visits Re quested Visits Authorized [id number] Closed 06/19/2024 06/19/2025 1 1 Encounter Details Date Type Department Care Team (Latest Contact Info) Description 06/18/2024 Orders Only Department of Otorhinolaryngology in [place], [place] [address] [place] [phone] Luz Muir R.N. [address] [place] [phone] Sialorrhea (Primary Dx) Social History Tobacco Use Types Packs/Day Years Used Date Smoking Tobacco: Former Cigarettes Q uit: 1985 Smokeless Tobacco: Never Alcohol Use Standard Drinks/Week Comments Not Currently 0 (1 standard drink = 0.6 oz pur e alcohol) [facility] Utilities Answer Date Recorded In the past 12 months has e [employer], gas, oil, or water company threatened to [...] PM CDT Legal Sex Male 8:22 AM CREDIT REVIEW ANALYST Gender Identity Male 03/12/2024 1:38 PM CDT Sexual Orientation Straight 03/12/2024 1: 38 PM CDT documented as of this encounter Plan of Treatment Upcoming Encounters Date Type Department Care Team (Latest Contact Info) Description 11/15/2024 11:15 AM CREDIT REVIEW ANALYST Clinical Communication Virtual Review in [place], [place] [address] [place] [address] 11/18/2024 3:00 PM CREDIT REVIEW ANALYST Ancillary Procedure Department of Ophthalmology in [place], [place] [address] [place] [phone] 11/18/2024 3:30 PM CREDIT REVIEW ANALYST Office Visit Department of Ophthalmology in [place], [place] [address] [place] [phone] Peña Carver M.D. [address] [place] [phone] 11/29/2024 Hospital Encounter Post Anesthesia Care Unit in [place], [place] [address] [place] [phone] Rafal Rankin M.D. [address] [place] [phone] 12/02/2024 1:30 PM CREDIT REVIEW ANALYST Comprehensive Visit [facility] in [place], [place] [address] [place] [phone] Damian Vargas, SHOT CORE DRILL OPERATOR HELPER, C.N.P., M.S.N. [address] [place] [phone] 12/26/2024 12:00 PM CREDIT REVIEW ANALYST Telemedicine Department of Neurology in [place], [place] [address] [place] [phone] Oziel Odonnell M.D. 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
--- OUTSIDE RECORDS SUMMARY | 2024-11-12 14:20 | XMS_ITS | Encounter Summary ---
Author Organization [facility] Address [address] [place] [phone] Care Team Providers Care Historiographer Name Role Phone Elsewhere, Pcp Primary Care Provider Unavailabl e Reason for Referral * Outpatient (Routine) - Closed Specialty Diagnoses / Procedures Referred By Karine velasco Referred To Contact Otorhinolaryngology Rafal Rankin M.D. [address] [place] [address] Phone: tel: fax: [facility] Referral ID Status Reason Start Date Expiration Date Visits Re quested Visits Authorized [id number] Closed 07/17/2024 01/16/2026 1 1 Scheduling Instructions Ok to add on at [address] Rankin 07/18/24 Encounter Details Date Type Department Care Team (Late st Contact Info) Description 07/17/2024 Orders Only Department of Otorhinolaryngology in [place], [place] [address] [place] [phone] Rafal Rankin M.D. [address] [place] [phone] Social History Tobacco Use Types Packs/Day Years Used Date Smoking Tobacco: Former Cigarettes Q uit: 1985 Smokeless Tobacco: Never Alcohol Use Standard Drinks/Week Comments Not Currently 0 (1 standard drink = 0.6 oz pur e alcohol) [facility] Utilities Answer Date Recorded In the past 12 months has e [employer], gas, oil, or water [employer] threatened to shut off services in your [...] living situation today? I have a [facility] place to live 03/12/2024 Sex and Gender Information Value Date Recorded Sex Assigned at Male 03/12/2024 1:38 PM CDT Legal Sex Male 8:22 AM PROJECT BUILDER Gender Identity Male 03/12/2024 1:38 PM CDT Sexual Orientation Straight 03/12/2024 1: 38 PM CDT documented as of this encounter Plan of Treatment Upcoming Encounters Date Type Department Care Team (Latest Contact Info) Description 11/15/2024 11:15 AM PROJECT BUILDER Clinical Communication Virtual Review in [place], [place] 200 [place] [address] 11/18/2024 3:00 PM PROJECT BUILDER Ancillary Procedure Department of Ophthalmology in [place], [place] [address] [place] [phone] 11/18/2024 3:30 PM PROJECT BUILDER Office Visit Department of Ophthalmology in [place], [place] [address] [place] [phone] Peña Carver M.D. [address] [place] [phone] 11/29/2024 Hospital Encounter Post Anesthesia Care Unit in [place], [place] [address] [place] [phone] Rafal Rankin M.D. [address] [place] [phone] 12/02/2024 1:30 PM PROJECT BUILDER Comprehensive Visit [facility] in [place], [place] [address] [place] [phone] Damian Vargas APRN, C.N.P., M.S.N. [address] [place] [phone] 12/26/2024 12:00 PM PROJECT BUILDER Telemedicine Department of Neurology in [place], [place] [address] [place] [phone] Oziel Odonnell M.D. 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
--- OUTSIDE RECORDS SUMMARY | 2024-11-12 14:21 | XMS_ITS | Encounter Summary ---
Author Organization [facility] Address [address] [place] [address] Care Team Providers Care Transportation Associate Name Role Phone Elsewhere, Pcp Primary Care Provider Unavailabl e Encounter Details Date Type Department Care Team (Latest Contact Info) Description 03/19/2024 9:45 AM CDT Ancillary Procedure Department of Otorhinolaryngology Social History Tobacco Use Types Packs/Day Years Used Date Smoking Tobacco: Former Cigarettes Smokeless Tobacco: Never Alcohol Use Standard Drinks/Week Comments Not Currently 0 (1 standard drink = 0.6 oz pur e alcohol) [facility] Utilities Answer Date Recorded In the past 12 months has [employer], gas, oil, or water [employer] threatened to shut off services in your [...] your living situation today? I have a [facility] place to live 03/12/2024 Sex and Gender Information Value Date Recorded Sex Assigned at Male 03/12/2024 1:38 PM CDT Legal Sex Male 8:22 AM BREAKER MECHANIC Gender Identity Male 03/12/2024 1:38 PM CDT Sexual Orientation Straight 03/12/2024 1: 38 PM CDT documented as of this encounter Plan of Treatment Upcoming Encounters Date Type Department Care Team (Latest Contact Info) Description 11/15/2024 11:15 AM BREAKER MECHANIC Clinical Communication Virtual Review in [place], [place] 200 [place] [phone] 11/18/2024 3:00 PM BREAKER MECHANIC Ancillary Procedure Department of Ophthalmology in [place], [place] [address] [place] [phone] 11/18/2024 3:30 PM BREAKER MECHANIC Office Visit Department of Ophthalmology in [place], [place] [address] [place] [phone] Peña Carver M.D. [address] [place] [phone] 11/29/2024 Hospital Encounter Post Anesthesia Care Unit in [place], [place] [address] [place] [phone] Rafal Rankin M.D. [address] [place] [phone] 12/02/2024 1:30 PM BREAKER MECHANIC Comprehensive Visit [facility] in [place], [place] [address] [place] [phone] Damian Vargas APRN, C.N.P., M.S.N. [address] [place] [phone] 12/26/2024 12:00 PM BREAKER MECHANIC Telemedicine Department of Neurology in [place], [place] [address] [place] [phone] Oziel Odonnell M.D. 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 The clinical documentation to support these images can be found on the encounter that produced images. us Provider Not In System IMG NON RAD IMAGING PROCE DURES Final Result [facility] NA documented in this encounter Visit Diagnoses Not on filedocumented in this encounter Care Teams Transportation Associate Relationship Specialty Start Date End Date Elsewhere, Pcp PCP - General Family Medicine 02/26/24 documented as of this encounter
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
--- OUTSIDE RECORDS SUMMARY | 2024-11-12 14:21 | XMS_ITS | Encounter Summary ---
Author Organization [facility] Address [address] [place] [address] Care Team Providers Care Senior Clinical Data Coordinator Name Role Phone Elsewhere, Pcp Primary Care Provider Unavailabl e Encounter Details Date Type Department Care Team (Latest Contact Info) Description 05/17/2024 3:00 PM CDT Ancillary Procedure Department of Ophthalmology in [place], [place] [address] [place] [address] Kandace Shankar M.D. [address] [place] [address] Traumatic Subarachnoid Hemorrhage Without Loss Of Consciousness Sequela (HCC) Social History Tobacco Use Types Packs/Day Years Used Date Smoking Tobacco: Former Cigarettes Q uit: 1985 Smokeless Tobacco: Never Alcohol Use Standard Drinks/Week Comments Not Currently 0 (1 standard drink = 0.6 oz pur e alcohol) [facility] Utilities Answer Date [...] your living situation today? 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 Gender Identity Male 03/12/2024 1:38 PM CDT Sexual Orientation Straight 03/12/2024 1: 38 PM CDT documented as of this encounter Plan of Treatment Upcoming Encounters Date Type Department Care Team (Latest Contact Info) Description 11/15/2024 11:15 AM POLISHING MACHINE OPERATOR Clinical Communication Virtual Review in [place], [place] 200 [place] [address] 11/18/2024 3:00 PM POLISHING MACHINE OPERATOR Ancillary Procedure Department of Ophthalmology in [address] [phone] 11/18/2024 3:30 PM POLISHING MACHINE OPERATOR Office Visit Department of Ophthalmology in [place], [place] [address] [place] [phone] Peña Carver M.D. [address] [place] [phone] 11/29/2024 Hospital Encounter Post Anesthesia Care Unit in [place], [place] [address] [place] [phone] Rafal Rankin M.D. [address] [place] [phone] 12/02/2024 1:30 PM POLISHING MACHINE OPERATOR Comprehensive Visit Center for [facility] in [address] [phone] Damian Vargas, APPLICATION SECURITY DEVELOPER, C.N.P., M.S.N. [address] [place] [phone] 12/26/2024 12:00 PM POLISHING MACHINE OPERATOR Telemedicine Department of Neurology in [address] [phone] Oziel Odonnell M.D. [address] [place] [phone] Scheduled Procedures Name Priority Associated Diagnoses Date/Ti [...] (PSD) was 1.63 decibels. Notes See note. us Kandace Shankar M.D. OPHTH VISUAL FIELD Final Result OPHTHALMOLOGY IMAGING EXAM documented in this encounter Visit Diagnoses Diagnosis Traumatic Subarachnoid Hemorrhage Without Loss Of Consciousness Sequela (HCC) documented in this encounter Care Teams Senior Clinical Data Coordinator Relationship Specialty Start Date End Date Elsewhere, Pcp PCP - General Family Medicine 02/26/24 documented as of this encounter
--- OUTSIDE RECORDS SUMMARY | 2024-11-12 14:21 | XMS_ITS | Encounter Summary ---
Author Organization [facility] Address [address] [place] [address] Care Team Providers Care Stitcher Tape Controlled Machine Name Role Phone Elsewhere, Pcp Primary Care Provider Unavailabl e Encounter Details Date Type Department Care Team (Late st Contact Info) Description 05/07/2024 Orders Only Division of Gastroenterology in [place], [place] [address] [place] [address] Stan Hernandez M.D. Social History Tobacco Use Types Packs/Day Years Used Date Smoking Tobacco: Former Cigarettes Smokeless Tobacco: Never Alcohol Use Standard Drinks/Week Comments Not Currently 0 (1 standard drink = 0.6 oz pur e alcohol) [facility] Utilities Answer Date Recorded In [...] your living situation today? 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 Gender Identity Male 03/12/2024 1:38 PM CDT Sexual Orientation Straight 03/12/2024 1: 38 PM CDT documented as of this encounter Plan of Treatment Upcoming Encounters Date Type Department Care Team (Latest Contact Info) Description 11/15/2024 11:15 AM HORSE RIDING COACH OR INSTRUCTOR Clinical Communication Virtual Review in [place], [place] [address] [place] [address] 11/18/2024 3:00 PM HORSE RIDING COACH OR INSTRUCTOR Ancillary Procedure Department of Ophthalmology in [place], [place] [address] [place] [address] 11/18/2024 3:30 PM HORSE RIDING COACH OR INSTRUCTOR Office Visit Department of Ophthalmology in [place], [place] [address] [place] [phone] Peña Carver M.D. [address] [place] [phone] 11/29/2024 Hospital Encounter Post Anesthesia Care Unit in [place], [place] [address] [place] [phone] Rafal Rankin M.D. [address] [place] [phone] 12/02/2024 1:30 PM HORSE RIDING COACH OR INSTRUCTOR Comprehensive Visit [facility] in [place], [place] [address] [place] [phone] Damian Vargas, EXPLOSIVE ORDNANCE DISPOSAL TECHNICIAN, C.N.P., M.S.N. [address] [place] [phone] 12/26/2024 12:00 PM HORSE RIDING COACH OR INSTRUCTOR Telemedicine Department of Neurology in [place], [place] [address] [place] [phone] Oziel Odonnell M.D. [address] [place] [phone] Scheduled Procedures Name Priority Associated Diagnoses Date/Ti me TRACHEOSTOMY Paralysis Vocal Cord Bilateral Complete documented as of this encounter Visit Diagnoses Not on filedocumented in this encounter Care Teams Stitcher Tape Controlled Machine Relationship Specialty Start Date End Date Elsewhere, Pcp PCP - General Family Medicine 02/26/24 documented as of this encounter
--- OUTSIDE RECORDS SUMMARY | 2024-11-12 14:21 | XMS_ITS | Encounter Summary ---
Author Organization [facility] Address [address] [place] [address] Care Team Providers Care Spine Surgeon Name Role Phone Elsewhere, Pcp Primary Care Provider Unavailabl e Encounter Details Date Type Department Care Team (Latest Contact Info) Description 05/17/2024 4:30 PM CDT Ancillary Procedure Department of Ophthalmology in [place], [place] [address] [place] [address] Kandace Shankar M.D. [address] [place] [address] Traumatic Subarachnoid Hemorrhage Without Loss Of Consciousness [...] your living situation today? 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 Gender Identity Male 03/12/2024 1:38 PM CDT Sexual Orientation Straight 03/12/2024 1: 38 PM CDT documented as of this encounter Plan of Treatment Upcoming Encounters Date Type Department Care Team (Latest Contact Info) Description 11/15/2024 11:15 AM PRINTING PLATE CLERK Clinical Communication Virtual Review in [place], [place] [address] [place] [address] 11/18/2024 3:00 PM PRINTING PLATE CLERK Ancillary Procedure Department of Ophthalmology in [address] [phone] 11/18/2024 3:30 PM PRINTING PLATE CLERK Office Visit Department of Ophthalmology in [place], [place] [address] [place] [phone] Peña Carver M.D. [address] [place] [phone] 11/29/2024 Hospital Encounter Post Anesthesia Care Unit in [place], [place] [address] [place] [phone] Rafal Rankin M.D. [address] [place] [phone] 12/02/2024 1:30 PM PRINTING PLATE CLERK Comprehensive Visit [facility] in [address] [phone] Damian Vargas, SEO INTERN, C.N.P., M.S.N. [address] [place] [phone] 12/26/2024 12:00 PM PRINTING PLATE CLERK Telemedicine Department of Neurology in [address] [phone] Oziel Odonnell M.D. [address] [place] [phone] Scheduled Procedures Name Priority Associated Diagnoses Date/Ti [...] Ganglion cell layer was 29.00 microns. Notes [facility] See note. us Kandace Shankar M.D. OPHTH TOMOGRAPHY Final Re sult OPHTHALMOLOGY IMAGING EXAM documented in this encounter Visit Diagnoses Diagnosis Traumatic Subarachnoid Hemorrhage Without Loss Of Consciousness Sequela (HCC) documented in this encounter Care Teams Spine Surgeon Relationship Specialty Start Date End Date Elsewhere, Pcp PCP - General Family Medicine 02/26/24 documented as of this encounter
--- OUTSIDE RECORDS SUMMARY | 2024-11-12 14:21 | XMS_ITS | Encounter Summary ---
Author Organization [facility] Address [address] [place] [address] Care Team Providers Care Customer Business Manager Name Role Phone Elsewhere, Pcp Primary Care Provider Unavailabl e Reason for Referral * Speech Pathology (Routine) - Authorized Specialty Diagnoses / Procedures Referred By Karine velasco Referred To Contact Diagnoses Stenosis Laryngeal Tracheostomy Status (HCC) Dysphagia Procedures CARGO SURVEYOR - Ongoing treatment Rafal Rankin M.D. [address] [place] [address] Phone: tel: fax: [facility] Referral ID Status Reason Start Date Expiration Date V isits Requested Visits Authorized [id number] Authorized 03/13/2024 03/13/2025 99 99 * Outpatient (Routine) - Closed Specialty Diagnoses / Procedures Referred By Karine velasco Referred To Contact Diagnoses Stenosis Laryngeal Tracheostomy Status (HCC) Dysphagia Procedures FL Swallow Function with Video and Speech or OT Rafal Rankin M.D. [address] [place] [address] Phone: tel: fax: [facility] Referral ID Status Reason Start Date Expiration Date Visits Re quested Visits Authorized [id number] Closed 03/13/2024 03/13/2025 1 1 * Speech Pathology (Routine) - Authorized Specialty Diagnoses / Procedures Referred By Contac t Referred To Contact Diagnoses Stenosis Laryngeal Tracheostomy Status (HCC) Dysphagia Procedures CARGO SURVEYOR Dysphagia evaluate and treat Rafal Rankin M.D. [address] [place] [address] Phone: tel: fax: [facility] Referral ID Status Reason Start Date Expiration Date V isits Requested Visits Authorized [id number] Authorized 03/13/2024 03/13/2025 99 99 Encounter Details Date Type Department Care Team (Latest Contact Info) Description 03/13/2024 Orders Only Department of Otorhinolaryngology in [place], [place] [address] [place] [phone] Rafal Rankin M.D. [address] [place] [phone] Stenosis Laryngeal (Primary Dx); Tracheostomy Status (HCC); Dysphagia Social History Tobacco Use Types Packs/Day Years Used Date Smoking Tobacco: Former Cigarettes Smokeless Tobacco: Never Alcohol Use Standard Drinks/Week Comments Not Currently 0 (1 standard drink = 0.6 oz pur e alcohol) [facility] Utilities Answer Date Recorded In the past 12 months has e electric, gas, oil, or water [employer] threatened to shut off services in your [...] PM CDT Legal Sex Male 8:22 AM POOLROOM/POOLHALL MANAGER Gender Identity Male 03/12/2024 1:38 PM CDT Sexual Orientation Straight 03/12/2024 1: 38 PM CDT documented as of this encounter Plan of Treatment Upcoming Encounters Date Type Department Care Team (Latest Contact Info) Description 11/15/2024 11:15 AM POOLROOM/POOLHALL MANAGER Clinical Communication Virtual Review in [place], [place] [address] [place] [address] 11/18/2024 3:00 PM POOLROOM/POOLHALL MANAGER Ancillary Procedure Department of Ophthalmology in [place], [place] [address] [place] [phone] 11/18/2024 3:30 PM POOLROOM/POOLHALL MANAGER Office Visit Department of Ophthalmology in [place], [place] [address] [place] [phone] Peña Carver M.D. [address] [place] [phone] 11/29/2024 Hospital Encounter Post Anesthesia Care Unit in [place], [place] [address] [place] [phone] Rafal Rankin M.D. [address] [place] [phone] 12/02/2024 1:30 PM POOLROOM/POOLHALL MANAGER Comprehensive Visit [facility] in [place], [place] [address] [place] [phone] Damian Vargas, GRUPO, C.N.P., M.S.N. [address] [place] [phone] 12/26/2024 12:00 PM POOLROOM/POOLHALL MANAGER Telemedicine Department of Neurology in [place], [place] [address] [place] [phone] Oziel Odonnell M.D. [address] [place] [phone] Scheduled Procedures Name Priority Associated Diagnoses Date/Ti me TRACHEOSTOMY Paralysis Vocal Cord Bilateral Complete documented as of this encounter Results * FL Swallow Function with Video and Speech or OT (03/22/2024 2:46 PM CDT) Anatomical Region Laterality Modality Gastro Intestinal, Abdominal RST LOS, Abdominal ARZ LOS, Abdominal FLA LOS N/A Digital Radiography Impressions 03/22/2024 3:30 PM CDT Little to no movement of the upper esophageal sphincter opening with aspiration of thin liquid barium. Please see speech pathology note for further details and recommendations. Narrative 03/22/2024 3:30 PM CDT EXAM: FL SWALLOW FUNCTION WITH VIDEO AND SPEECH OR OT FOR RST COMPARISON: Video swallow study from 10/12/2023 FINDINGS: Study was performed with speech pathology using thin liquid barium consistency. Aspiration of thin consistency. Little to no movement of the upper esophageal sphincter opening. Procedure Note Simran Pastrana M.D. - 03/22/2024 EXAM: FL SWALLOW FUNCTION WITH VIDEO AND SPEECH OR OT FOR RST COMPARISON: Video swallow study from 10/12/2023 FINDINGS: Study was performed with speech pathology using thin liquidbarium consistency. Aspiration of thin consistency. Little to no movementof the upper esophageal sphincter opening. IMPRESSION: Little to no movement of the upper esophageal sphincter opening withaspiration of thin liquid barium. Please see speech pathology note forfurther details and recommendations. Rafal Rankin M.D. IMG FLUOROSCOPY PROCEDURES Final Result documented in this encounter Visit Diagnoses Diagnosis Stenosis Laryngeal- Primary Tracheostomy Status (HCC) Dysphagia Stenosis Laryngeal Tracheostomy Status (HCC) Dysphagia documented in this encounter Care Teams Customer Business Manager Relationship Specialty Start Date End Date Elsewhere, Pcp PCP - General Family Medicine 02/26/24 documented as of this encounter
--- OUTSIDE RECORDS SUMMARY | 2024-11-12 14:21 | XMS_ITS | Encounter Summary ---
Author Organization [facility] Address [address] [place] [address] Care Team Providers Care Furnace Hand Name Role Phone Elsewhere, Pcp Primary Care Provider Unavailabl e Reason for Visit * Reason Onset Date Comments Follow-up Orders 03/05/2024 Encounter Details Date Type Department Care Team (Latest Contact Info) Description 03/05/2024 Clinical Communication [facility] [address] [place] [address] Felix Frost M.D. [address] [place] [address] Follow-up Orders Social History Tobacco Use Types Packs/Day Years Used Date Smoking Tobacco: Former Cigarettes Smokeless Tobacco: Never Alcohol Use Standard Drinks/Week Comments Not Currently 0 (1 standard drink = 0.6 oz pur e alcohol) [facility] Utilities Answer Date Recorded In the [...] PM CDT Legal Sex Male 8:22 AM THREAD GRINDER TOOL Gender Identity Male 03/12/2024 1:38 PM CDT Sexual Orientation Straight 03/12/2024 1: 38 PM CDT documented as of this encounter Plan of Treatment Upcoming Encounters Date Type Department Care Team (Latest Contact Info) Description 11/15/2024 11:15 AM THREAD GRINDER TOOL Clinical Communication Virtual Review in [address] [phone] 11/18/2024 3:00 PM THREAD GRINDER TOOL Ancillary Procedure Department of Ophthalmology in [place], [place] [address] [place] [phone] 11/18/2024 3:30 PM THREAD GRINDER TOOL Office Visit Department of Ophthalmology in [place], [place] [address] [place] [phone] Peña Carver M.D. [address] [place] [phone] 11/29/2024 Hospital Encounter Post Anesthesia Care Unit in [place], [place] [address] [place] [phone] Rafal Rankin M.D. [address] [place] [phone] 12/02/2024 1:30 PM THREAD GRINDER TOOL Comprehensive Visit [facility] in [place], [place] [address] [place] [phone] Damian Vargas, OIL DRILLING ENGINEER, C.N.P., M.S.N. [address] [place] [phone] 12/26/2024 12:00 PM THREAD GRINDER TOOL Telemedicine Department of Neurology in [place], [place] [address] [place] [phone] Oziel Odonnell M.D. [address] [place] [phone] Scheduled Procedures Name Priority Associated Diagnoses Date/Ti me TRACHEOSTOMY Paralysis Vocal Cord Bilateral Complete documented as of this encounter Visit Diagnoses Not on filedocumented in this encounter Care Teams Furnace Hand Relationship Specialty Start Date End Date Elsewhere, Pcp PCP - General Family Medicine 02/26/24 documented as of this encounter
--- OUTSIDE RECORDS SUMMARY | 2024-11-12 14:21 | XMS_ITS | Encounter Summary ---
Author Organization [facility] Address [address] [place] [phone] Care Team Providers Care Rock Climbing Instructor Name Role Phone Elsewhere, Pcp Primary Care Provider Unavailabl e Encounter Details Date Type Department Care Team (Late st Contact Info) Description 03/19/2024 Clinical Communication Department of Neurology in [place], [place] [address] [place] [phone] Bhavani Betancur M.S., CCC-THERAPIST PHYSICAL, B[employer]-S [address] [place] [phone] Social History Tobacco Use Types Packs/Day Years [...] living situation today? I have a [facility] place to live 03/12/2024 Sex and Gender Information Value Date Recorded Sex Assigned at Male 03/12/2024 1:38 PM CDT Legal Sex Male 8:22 AM PADDING GLUER Gender Identity Male 03/12/2024 1:38 PM CDT Sexual Orientation Straight 03/12/2024 1: 38 PM CDT documented as of this encounter Plan of Treatment Upcoming Encounters Date Type Department Care Team (Latest Contact Info) Description 11/15/2024 11:15 AM PADDING GLUER Clinical Communication Virtual Review in [address] [phone] 11/18/2024 3:00 PM PADDING GLUER Ancillary Procedure Department of Ophthalmology in [place], [place] [address] [place] [phone] 11/18/2024 3:30 PM PADDING GLUER Office Visit Department of Ophthalmology in [place], [place] [address] [place] [phone] Peña Carver M.D. [address] [place] [phone] 11/29/2024 Hospital Encounter Post Anesthesia Care Unit in [place], [place] [address] [place] [phone] Rafal Rankin M.D. [address] [place] [phone] 12/02/2024 1:30 PM PADDING GLUER Comprehensive Visit [facility] in [place], [place] [address] [place] [phone] Damian Vargas, HOSPICE VOLUNTEER COORDINATOR, C.N.P., M.S.N. [address] [place] [phone] 12/26/2024 12:00 PM PADDING GLUER Telemedicine Department of Neurology in [place], [place] [address] [place] [phone] Oziel Odonnell M.D. [address] [place] [phone] Scheduled Procedures Name Priority Associated Diagnoses Date/Ti me TRACHEOSTOMY Paralysis Vocal Cord Bilateral Complete documented as of this encounter Visit Diagnoses Not on filedocumented in this encounter Care Teams Rock Climbing Instructor Relationship Specialty Start Date End Date Elsewhere, Pcp PCP - General Family Medicine 02/26/24 documented as of this encounter
--- OUTSIDE RECORDS SUMMARY | 2024-11-12 14:21 | XMS_ITS | Encounter Summary ---
Author Organization [facility] Address [address] [place] [address] Care Team Providers Care Peoplesoft Business Analyst Name Role Phone Elsewhere, Pcp Primary Care Provider Unavailabl e Encounter Details Date Type Department Care Team (Latest Contact Info) Description 03/15/2024 3:00 PM CDT Clinical Communication Virtual Review in [place], [place] [address] [place] [phone] Social History Tobacco Use Types Packs/Day Years [...] your living situation today? I have a [facility] place to live 03/12/2024 Sex and Gender Information Value Date Recorded Sex Assigned at Male 03/12/2024 1:38 PM CDT Legal Sex Male 8:22 AM SKY CAP Gender Identity Male 03/12/2024 1:38 PM CDT Sexual Orientation Straight 03/12/2024 1: 38 PM CDT documented as of this encounter Plan of Treatment Upcoming Encounters Date Type Department Care Team (Latest Contact Info) Description 11/15/2024 11:15 AM SKY CAP Clinical Communication Virtual Review in [place], [place] [address] [place] [address] 11/18/2024 3:00 PM SKY CAP Ancillary Procedure Department of Ophthalmology in [place], [place] [address] [place] [address] 11/18/2024 3:30 PM SKY CAP Office Visit Department of Ophthalmology in [place], [place] [address] [place] [phone] Peña Carver M.D. [address] [place] [phone] 11/29/2024 Hospital Encounter Post Anesthesia Care Unit in [place], [place] [address] [place] [phone] Rafal Rankin M.D. [address] [place] [phone] 12/02/2024 1:30 PM SKY CAP Comprehensive Visit Center for [facility] Medicine in [place], [place] [address] [place] [phone] Damian Vargas, PASTING MACHINE OPERATOR, C.N.P., M.S.N. [address] [place] [phone] 12/26/2024 12:00 PM SKY CAP Telemedicine Department of Neurology in [place], [place] [address] [place] [phone] Oziel Odonnell M.D. [address] [place] [phone] Scheduled Procedures Name Priority Associated Diagnoses Date/Ti me TRACHEOSTOMY Paralysis Vocal Cord Bilateral Complete documented as of this encounter Visit Diagnoses Not on filedocumented in this encounter Care Teams Peoplesoft Business Analyst Relationship Specialty Start Date End Date Elsewhere, Pcp PCP - General Family Medicine 02/26/24 documented as of this encounter
--- OUTSIDE RECORDS SUMMARY | 2024-11-12 14:21 | XMS_ITS | Encounter Summary ---
Author Organization [facility] Address [address] [place] [address] Care Team Providers Care Retail Management Trainee Name Role Phone Elsewhere, Pcp Primary Care Provider Unavailabl e Reason for Visit * Outpatient (Routine) - Closed Specialty Diagnoses / Procedures Referred By Contact Referred To Contact Gastroenterology and Hepatology Diagnoses Dysphagia Gastroparesis Rafal Rankin M.D. [address] [place] [address] Phone: tel: fax: [facility] Referral ID Status Reason Start Date Expiration Date Visits Re quested Visits Authorized [id number] Closed 03/19/2024 09/18/2025 1 1 Encounter Details Date Type Department Care Team (Latest Contact Info) Description 05/03/2024 2:10 PM CDT Comprehensive Visit Division of Gastroenterology in [place], [place] [address] [place] [phone] Rafal Rankin M.D. [address] [place] [phone] Mehanna Al Snih, Stan, M.D. Heartburn (Primary Dx); Dysphagia; Gastroparesis; Diarrhea Social History Tobacco Use Types Packs/Day Years Used Date Smoking Tobacco: Former Cigarettes Smokeless Tobacco: Never Alcohol Use Standard Drinks/Week Comments Not Currently 0 (1 standard drink = 0.6 oz pur e alcohol) [facility] Utilities Answer Date Recorded In the past 12 months has e electric, gas, oil, or water [employer] threatened to shut off services in your [...] PM CDT Legal Sex Male 8:22 AM INSTALLMENT AGENT Gender Identity Male 03/12/2024 1:38 PM [...] interested in having G-J tube exchanged at [place]: we will look into this. Agree with [...] bowel movements a day of watery stools (Silt 7). He had recent started Imodium 2 [...] (Latest Contact Info) Description 11/15/2024 11:15 AM INSTALLMENT AGENT Clinical Communication Virtual Review in [place], [place] 200 [place] [address] 11/18/2024 3:00 PM INSTALLMENT AGENT Ancillary Procedure Department of Ophthalmology in [place], [place] [address] [place] [phone] 11/18/2024 3:30 PM INSTALLMENT AGENT Office Visit Department of Ophthalmology in [place], [place] [address] [place] [phone] Peña Carver M.D. [address] [place] [phone] 11/29/2024 Hospital Encounter Post Anesthesia Care Unit in [place], [place] [address] [place] [phone] Rafal Rankin M.D. [address] [place] [phone] 12/02/2024 1:30 PM INSTALLMENT AGENT Comprehensive Visit [facility] in [place], [place] [address] [place] [phone] Damian Vargas, GRUPO, C.N.P., M.S.N. [address] [place] [address] [place] [phone] 12/26/2024 12:00 PM INSTALLMENT AGENT Telemedicine Department of Neurology in [place], [place] [address] [place] [phone] Oziel Odonnell M.D. [address] [place] [phone] Scheduled Procedures Name Priority Associated Diagnoses Date/Ti me TRACHEOSTOMY Paralysis Vocal Cord Bilateral Complete documented as of this encounter Results * Clostridioides (Clostridium) Difficile Toxin, Molecular Detection, PCR, Feces (05/09/2024 8:50 AM CDT) C. difficile Toxin, F Negative Negative 05/09/2024 12:00 PM CDT DTL Stool (Stool) 05/09/2024 8:5 0 AM CDT 05/09/2024 9:40 AM CDT us Stan Izaguirre M.D. LAB MICROBIOLOGY - GENE RAL ORDERABLES Final Result [facility] [address] [place] [address], [facility] [address] [place] [address] documented in this encounter Visit Diagnoses Diagnosis Heartburn- Primary Dysphagia Gastroparesis Diarrhea documented in this encounter Care Teams Retail Management Trainee Relationship Specialty Start Date End Date Elsewhere, Pcp PCP - General Family Medicine 02/26/24 documented as of this encounter
--- OUTSIDE RECORDS SUMMARY | 2024-11-12 14:21 | XMS_ITS | Encounter Summary ---
Author Organization [facility] Address [address] [place] [address] Care Team Providers Care Lead Pastor Name Role Phone Elsewhere, Pcp Primary Care Provider Unavailabl e Reason for Visit * Reason Onset Date Comments Communication 03/13/2024 For up coming ap pointment on 03/19 Encounter Details Date Type Department Care Team (Latest Contact Info) Description 03/13/2024 Clinical Communication Department of Otorhinolaryngology in [place], [place] [address] [place] [phone] Rafal Rankin M.D. [address] [place] [phone] Communication (For up coming appointment on 03/19) Social History Tobacco Use Types Packs/Day Years Used Date Smoking Tobacco: Former Cigarettes Smokeless Tobacco: Never Alcohol Use Standard Drinks/Week Comments Not Currently 0 (1 standard drink = 0.6 oz pur e alcohol) [facility] Utilities Answer Date Recorded In [...] PM CDT Legal Sex Male 8:22 AM J2EE CONSULTANT Gender Identity Male 03/12/2024 1:38 PM CDT Sexual Orientation Straight 03/12/2024 1: 38 PM CDT documented as of this encounter Plan of Treatment Upcoming Encounters Date Type Department Care Team (Latest Contact Info) Description 11/15/2024 11:15 AM J2EE CONSULTANT Clinical Communication Virtual Review in [place], [place] [address] [place] [address] 11/18/2024 3:00 PM J2EE CONSULTANT Ancillary Procedure Department of Ophthalmology in [place], [place] [address] [place] [phone] 11/18/2024 3:30 PM J2EE CONSULTANT Office Visit Department of Ophthalmology in [place], [place] [address] [place] [phone] Peña Carver M.D. [address] [place] [phone] 11/29/2024 Hospital Encounter Post Anesthesia Care Unit in [place], [place] [address] [place] [phone] Rafal Rankin M.D. [address] [place] [phone] 12/02/2024 1:30 PM J2EE CONSULTANT Comprehensive Visit Center for Sleep Medicine in [address] [phone] Damian Vargas, GRUPO, C.N.P., M.S.N. [address] [place] [phone] 12/26/2024 12:00 PM J2EE CONSULTANT Telemedicine Department of Neurology in [place], [place] [address] [place] [phone] Oziel Odonnell M.D. [address] [place] [phone] Scheduled Procedures Name Priority Associated Diagnoses Date/Ti me TRACHEOSTOMY Paralysis Vocal Cord Bilateral Complete documented as of this encounter Visit Diagnoses Not on filedocumented in this encounter Care Teams Lead Pastor Relationship Specialty Start Date End Date Elsewhere, Pcp PCP - General Family Medicine 02/26/24 documented as of this encounter
--- OUTSIDE RECORDS SUMMARY | 2024-11-12 14:21 | XMS_ITS | Encounter Summary ---
Author Organization [facility] Address [address] [place] [address] Care Team Providers Care Expressive Therapist Name Role Phone Elsewhere, Pcp Primary Care Provider Unavailabl e Encounter Details Date Type Department Care Team (Latest Contact Info) Description 05/03/2024 4:17 PM CDT - 05/03/2024 11:59 PM CDT Hospital Encounter Department of Laboratory Medicine and Pathology, [facility] in [place], [place] [address] [place] [address] Stan Hernandez M.D. Dysphagia; Diarrhea; Heartburn Discharge Disposition: Home or Self Care Social History Tobacco Use Types Packs/Day Years Used Date Smoking Tobacco: Former Cigarettes Smokeless Tobacco: Never Alcohol Use Standard Drinks/Week Comments Not Currently 0 (1 standard drink = 0.6 oz pur e alcohol) [facility] Utilities Answer Date Recorded In the past 12 months has e electric, gas, oil, or water [employer] threatened to shut off services in your [...] PM CDT Legal Sex Male 8:22 AM EXPERIENCE SPECIALIST Gender Identity Male 03/12/2024 1:38 PM [...] times a day as needed for diarrhea. prochlorperazine (COMPAZINE) 25 mg suppository Insert 25 mg into the rectum every 12 (twelve) hours as needed. 01/29/2024 tadalafiL (CIALIS) 5 mg tablet Administer 5 mg via gastric tube daily. traZODone (DESYREL) 50 mg tablet 50 mg by g-tube route at bedtime. 10/10/2023 UNABLE TO FIND 1 each daily. durable medical equipment (DME). MENA360 feed bag Ref# [id number]. Change bag every 24 hours. 03/27/2024 UNABLE TO FIND 1 each as needed (5 times daily for flushes as needed.). durable medical equipment (DME) 12ml enteral syringe NeoMed with ENFIT CONNECTOR. 03/19/2024 escitalopram (LEXAPRO) 5 mg/5 mL solution Administer 10 mg via gastric tube every morning. 02/02/2024 4 esomeprazole (NexIUM) 40 mg packet Take 40 mg by mouth 2 (two) times a day. 4 promethazine-code ine (PHENERGAN with CODEINE) 6.25-10 mg/5 mL syrup Administer 5 mL via small bowel tube at bedtime. 01/20/2024 4 documented as of this encounter Plan of Treatment Upcoming Encounters Date Type Department Care Team (Latest Contact Info) Description 11/15/2024 11:15 AM EXPERIENCE SPECIALIST Clinical Communication Virtual Review in [place], [place] [address] [place] [address] 11/18/2024 3:00 PM EXPERIENCE SPECIALIST Ancillary Procedure Department of Ophthalmology in [place], [place] [address] [place] [phone] 11/18/2024 3:30 PM EXPERIENCE SPECIALIST Office Visit Department of Ophthalmology in [place], [place] [address] [place] [phone] Peña Carver M.D. [address] [place] [phone] 11/29/2024 Hospital Encounter Post Anesthesia Care Unit in [place], [place] [address] [place] [phone] Rafal Rankin M.D. [address] [place] [phone] 12/02/2024 1:30 PM EXPERIENCE SPECIALIST Comprehensive Visit [facility] in [place], [place] [address] [place] [phone] Damian Vargas APRN, C.N.P., M.S.N. [address] [place] [phone] 12/26/2024 12:00 PM EXPERIENCE SPECIALIST Telemedicine Department of Neurology in [place], [place] [address] [place] [phone] Oziel Odonnell M.D. [address] [place] [phone] Scheduled Procedures Name Priority Associated Diagnoses Date/Ti [...] MICROBIOLOGY - GENE RAL ORDERABLES Final Result [facility] [address] [place] [address], [facility] [address] [place] [address] documented in this encounter Visit Diagnoses Diagnosis Dysphagia Diarrhea Heartburn documented in this encounter Care Teams Expressive Therapist Relationship Specialty Start Date End Date Elsewhere, Pcp PCP - General Family Medicine 02/26/24 documented as of this encounter
--- OUTSIDE RECORDS SUMMARY | 2024-11-12 14:21 | XMS_ITS | Encounter Summary ---
Author Organization [facility] Address [address] [place] [address] Care Team Providers Care Social Media Community Manager Name Role Phone Elsewhere, Pcp Primary Care Provider Unavailabl e Reason for Visit * Speech Pathology (Routine) - Authorized Specialty Diagnoses / Procedures Referred By Karine velasco Referred To Contact Diagnoses Stenosis Laryngeal Tracheostomy Status (HCC) Dysphagia Procedures HANDLING TECH Dysphagia evaluate and treat Rafal Rankin M.D. [address] [place] [address] Phone: tel: fax: [facility] Referral ID Status Reason Start Date Expiration Date V isits Requested Visits Authorized [id number] Authorized 03/13/2024 03/13/2025 99 [phone] Encounter Details Date Type Department Care Team (Latest Contact Info) Description 03/22/2024 1:30 PM CDT Comprehensive Visit Department of Neurology in [place], [place] [address] [place] [phone] Rafal Rankin M.D. [address] [place] [phone] Bhavani Betancur M.S., [facility]-HANDLING TECH, [employer] [address] [place] [address] Dysphagia Oropharyngeal Phase (Primary Dx); Stenosis Laryngeal; Tracheostomy Status (HCC); Dysphagia Social History Tobacco Use Types Packs/Day Years Used Date Smoking Tobacco: Former Cigarettes Smokeless Tobacco: Never Alcohol Use Standard Drinks/Week Comments Not Currently 0 (1 standard drink = 0.6 oz pur e alcohol) [facility] Utilities Answer Date Recorded In the past 12 months has e [employer], [employer], oil, or water [employer] threatened to shut off services in your [...] PM CDT Legal Sex Male 8:22 AM GAS MAKER Gender Identity Male 03/12/2024 1:38 PM CDT Sexual Orientation Straight 03/12/2024 1: 38 PM CDT documented as of this encounter Consult Notes * Bhavani Betancur M.S., CCC-HANDLING TECH - 03/22/2024 1:30 PM CDT Speech Pathology Dysphagia Videofluoroscopic Swallow Study (VFSS) Outpatient Session Type: Evaluation Length of session: 90 minutes SUBJECTIVE Referred By: Rafal Rankin M.D. Reason for Consult: Dysphagia History: Mr. Guillen [...] and treated for pneumonia multiple times. He currently participates in weekly speech therapy local to him where he is doing electrical stimulation as well as pharyngeal strengthening exercises. Please see clinical notes for complete history and details. The patient attended today's evaluation session with his . He reports that he has been going toweekly therapy without significant improvement since his accident in the fall of 2022. He does not take anything by mouth at this time and states that he suffers significantly from reflux when anything is given to him via G-tube. Anytime he lies down he feels he aspirates. Referral for speech pathology included a video fluoroscopic swallow evaluation allowing for formal assessment of the oral and pharyngeal stages of the swallowing mechanism. Overall safety and efficiency will be assessed. OBJECTIVE Oral Motor Dentition: Adequate Facial Symmetry: [...] Laryngeal Function: Impaired Motor Speech Voice: Impaired Aphonia: (4) Profound Intelligibility: Intelligible Flowsheet Row Most Recent Value Description of Procedure Previous MBS/VFSS Yes Results and Recommendations OSH Planes Tested Lateral, AP Type Assessment MBS IMP Statement of Consent Yes, Discussed goals, risks, alternatives, and the necessity of other members of the procedureal team participating in the procedure with the patient., The patient understands and wishes to proceed Consistencies Assessed (MBS) Consistencies Assessed Yes Level [...] laryngeal vestibule Pharyngeal Stripping Wave 2: Absent Pharyngeal Contraction AP View only 3: Bilateral Bulging Pharyngoesophageal Segment Opening 3: No distension with total obstruction of flow Tongue Base Retraction 3: Wide column of contrast or air between TB and PW Pharyngeal Residue 4: Minimal to no pharyngeal clearance Pharyngeal Residue Location Diffuse (>3 areas) Esophageal Clearance Could not test Penetration/Aspiration Scale 7: Material enters the airway, passes below the vocal folds, and is not ejected from the trachea despite effort. Penetration Yes, during the swallow Aspiration Yes, during the swallow, Yes, after the swallow, Cough/throat clear ineffective MBSImP Scores Oral Impairment Score 3 Pharyngeal Impairment Score 24 Esophageal Impairment Score 0 Assessment During the videofluoroscopic swallow study, lateral and AP views were recorded as the patient swallowed thin barium. Oral control of all consistencies was adequate. The pharyngeal swallow response was delayed to the pyriform sinuses resulted in penetration and aspiration before the swallow. Soft palate elevation was moderately reduced and posterior pharyngeal stripping was absent. Range of tonguebase retraction and hyolaryngeal excursion were severely reduced. The epiglottis did not invert resulting in additional episodes of penetration and aspiration during the swallow. Upper esophageal segment opening was severely reduced resulting in only minimal amounts of contrast passing through (notably on the right via AP view). This resulted in aspiration of residue after the swallow. The patient coughed and was able to eject some, but not all, aspirated material. No other trials offered. Images from today's evaluation are available for review on [employer]. In summary, the patient is demonstrating severe oropharyngeal dysphagia characterized by significant pharyngeal [...] origin, likely secondary to cranial nerve impairment. This is a difficult case. His frequent battles with pneumonia indicate that he has adverse pulmonary issues due to recurrent aspiration whether this is prandially or postprandially. At the very leastit would be appropriate to initiate small amounts of thin liquid water throughout the day for practice after good oral cares. We reviewed pharyngeal strengthening exercises and he was encouraged to use water during his exercise program to help moisten his mouth and initiate a swallow. He is currently receiving electrical stimulation with a local therapist. I provided rationale for why we do not recommend that therapy based on inconclusive evidence but encouraged him to continue if he feels he is having some benefit as he will likely not have any negative impact from its use. A re-evaluation is recommended in June 2024. At that time we may have a better idea of how much recovery is expected. Several thoughtful questions were answered to the best of my ability and patient and were encouraged to reach out to me via the portal. Eating Assessment Tool (EAT-10) 1. My swallowing problem has caused me to lose weight.: 4 2. My swallowing problem interferes with my ability to go out for meals.: 4 3. Swallowing liquids takes extra effort.: 4 4. Swallowing solids takes extra effort.: 4 5. Swallowing pills takes extra effort.: 4 6. Swallowing is painful.: 0 7. The pleasure of eating is affected by my swallowing.: 4 8. When I swallow, food sticks in my throat.: 4 9. I cough when I eat.: 4 10. Swallowing is stressful.: 4 EAT-10 Total Score: 36 Diagnosis: Plan DYSPHAGIA RECOMMENDATIONS: 1. Continue receiving non oral means of nutrition, hydration and medication administration. 2. After good oral cares, use small amounts of thin liquid water to help initiate a swallow during pharyngeal strengthening exercises. 3. A couple times a day (outside of exercises) it is recommended to have plain water after good oral cares. 4. Continue to perform pharyngeal strengthening exercises which are listed below. 5. Re-evaluation of swallow is recommended in June 2024. Exercises/Compensatory Strategies to Improve Swallowing 1. Donna Exercise a. Place tip of tongue between teeth (or gums) and swallow hard b. Keep your tongue between your teeth during the entire swallow c. Repeat 10 times, 3 times per day 2. Effortful swallow a. Swallow HARD, like you???re swallowing a spoonful of peanut-butter b. Remember to SQUEEZE all of your swallowing muscles including tongue c. Repeat 10 times, 3 times per day 3. Tongue-Base Exercise a. Pull your tongue back in your mouth b. Hold for 2 seconds then relax c. Repeat 10 times, 3 times per day 4. Mendolsohn Maneuver a. Start an effortful swallow. b. At the height of the swallow, hold all muscles tight (this is when you???re not breathing and the muscles of the neck are tight) c. Use your finger to feel your yonny???s apple move up - then HOLD for 3 seconds - and release d. Repeat 10 times, 3 times a day 5. [id number] 6. CTAR (chin tuck against resistance) documented in this encounter Plan of Treatment Upcoming Encounters Date Type Department Care Team (Latest Contact Info) Description 11/15/2024 11:15 AM GAS MAKER Clinical Communication Virtual Review in [place], [place] [address] [place] [address] 11/18/2024 3:00 PM GAS MAKER Ancillary Procedure Department of Ophthalmology in [place], [place] [address] [place] [address] 11/18/2024 3:30 PM GAS MAKER Office Visit Department of Ophthalmology in [place], [place] [address] [place] [phone] Peña Carver M.D. [address] [place] [phone] 11/29/2024 Hospital Encounter Post Anesthesia Care Unit in [place], [place] [address] [place] [phone] Rafal Rankin M.D. [address] [place] [phone] 12/02/2024 1:30 PM GAS MAKER Comprehensive Visit [facility] in [place], [place] [address] [place] [phone] Damian Vargas, SMASH HAND, C.N.P., M.S.N. [address] [place] [phone] 12/26/2024 12:00 PM GAS MAKER Telemedicine Department of Neurology in [place], [place] [address] [place] [phone] Oziel Odonnell M.D. [address] [place] [phone] Scheduled Procedures Name Priority Associated Diagnoses Date/Ti me TRACHEOSTOMY Paralysis Vocal Cord Bilateral Complete documented as of this encounter Visit Diagnoses Diagnosis Dysphagia Oropharyngeal Phase- Primary Stenosis Laryngeal Tracheostomy Status (HCC) Dysphagia documented in this encounter Care Teams Social Media Community Manager Relationship Specialty Start Date End Date Elsewhere, Pcp PCP - General Family Medicine 02/26/24 documented as of this encounter
--- OUTSIDE RECORDS SUMMARY | 2024-11-12 14:21 | XMS_ITS | Encounter Summary ---
Author Organization [facility] Address [address] [place] [address] Care Team Providers Care Wire Inspector Name Role Phone Elsewhere, Pcp Primary Care Provider Unavailabl e Reason for Visit * Reason Onset Date Comments Pre-visit Testing Orders 03/29/2024 Encounter Details Date Type Department Care Team (Latest Contact Info) Description 03/29/2024 Clinical Communication Department of Neurology in [place], [place] [address] [place] [address] Kandace Shankar M.D. [address] [place] [address] Pre-visit Testing Orders Social History Tobacco Use Types Packs/Day Years Used Date Smoking Tobacco: Former Cigarettes Smokeless Tobacco: Never Alcohol Use Standard Drinks/Week Comments Not Currently 0 (1 standard drink = 0.6 oz pur e alcohol) [facility] Utilities Answer Date Recorded In [...] situation today? I have a [facility] place to live 03/12/2024 Sex and Gender Information Value Date Recorded Sex Assigned at Male 03/12/2024 1:38 PM CDT Legal Sex Male 8:22 AM MANAGER SHAREPOINT Gender Identity Male 03/12/2024 1:38 PM CDT Sexual Orientation Straight 03/12/2024 1: 38 PM CDT documented as of this encounter Miscellaneous Notes * Telephone Encounter - Thania Palomino C.OYamilet - 04/01/2024 7:44 AM CDT Pretesting needed is DOMINGA, Assistant Professor Of Physics exam and OCT [employer]. Orders placed for testing. Thank you, Fabby documented in this encounter Plan of Treatment Upcoming Encounters Date Type Department Care Team (Latest Contact Info) Description 11/15/2024 11:15 AM MANAGER SHAREPOINT Clinical Communication Virtual Review in [place], [place] 200 [place] [address] 11/18/2024 3:00 PM MANAGER SHAREPOINT Ancillary Procedure Department of Ophthalmology in [address] [phone] 11/18/2024 3:30 PM MANAGER SHAREPOINT Office Visit Department of Ophthalmology in [address] [phone] Peña Carver M.D. [address] [place] [phone] 11/29/2024 Hospital Encounter Post Anesthesia Care Unit in [place], [place] [address] [place] [phone] Rafal Rankin M.D. [address] [place] [phone] 12/02/2024 1:30 PM MANAGER SHAREPOINT Comprehensive Visit Center for [facility] in [address] [phone] Damian Vargas, GRUPO, C.N.P., M.S.N. [address] [place] [phone] 12/26/2024 12:00 PM MANAGER SHAREPOINT Telemedicine Department of Neurology in [address] [phone] Oziel Odonnell M.D. [address] [place] [phone] Scheduled Procedures Name Priority Associated Diagnoses Date/Ti [...] Ganglion cell layer was 29.00 microns. Notes [facility] See note. Kandace Shankar M.D. OPHTH TOMOGRAPHY Final Re sult Performing Organization Address [facility] Co de Phone Number OPHTHALMOLOGY IMAGING EXAM [...] See note. Kandace Shankar M.D. OPHTH VISUAL FIELD Final Result Performing Organization Address [facility] Co de Phone Number OPHTHALMOLOGY IMAGING EXAM documented in this encounter Visit Diagnoses Diagnosis Traumatic Subarachnoid Hemorrhage Without Loss Of Consciousness Sequela (HCC)- Primary Traumatic Subarachnoid Hemorrhage Without Loss Of Consciousness Sequela (HCC) Traumatic Subarachnoid Hemorrhage Without Loss Of Consciousness Sequela (HCC) documented in this encounter Care Teams Wire Inspector Relationship Specialty Start Date End Date Elsewhere, Pcp PCP - General Family Medicine 02/26/24 documented as of this encounter
--- OUTSIDE RECORDS SUMMARY | 2024-11-12 14:21 | XMS_ITS | Encounter Summary ---
Author Organization [facility] Address [address] [place] [phone] Care Team Providers Care Circuit Judge Name Role Phone Elsewhere, Pcp Primary Care Provider Unavailabl e Reason for Visit * Reason Onset Date Comments Blood Pressure 05/15/2024 Encounter Details Date Type Department Care Team (Latest Contact Info) Description 05/15/2024 10:30 AM CDT Clinical Communication Virtual Review in [place], [place] [address] [place] [address] Blood Pressure Social History Tobacco Use Types Packs/Day Years Used Date Smoking Tobacco: Former Cigarettes Q uit: 1985 Smokeless Tobacco: Never Tobacco Cessation:Counseling Given: Not Answered Alcohol Use Standard Drinks/Week Comments Not Currently 0 (1 standard drink = 0.6 oz pur e alcohol) [facility] Utilities Answer Date Recorded In [...] your living situation today? I have a [facility] place to live 03/12/2024 Sex and Gender Information Value Date Recorded Sex Assigned at Male 03/12/2024 1:38 PM CDT Legal Sex Male 8:22 AM BOILER OPERATOR HELPER Gender Identity Male 03/12/2024 1:38 PM CDT Sexual Orientation Straight 03/12/2024 1: 38 PM CDT documented as of this encounter Plan of Treatment Upcoming Encounters Date Type Department Care Team (Latest Contact Info) Description 11/15/2024 11:15 AM BOILER OPERATOR HELPER Clinical Communication Virtual Review in [address] [phone] 11/18/2024 3:00 PM BOILER OPERATOR HELPER Ancillary Procedure Department of Ophthalmology in [place], [place] [address] [place] [phone] 11/18/2024 3:30 PM BOILER OPERATOR HELPER Office Visit Department of Ophthalmology in [place], [place] [address] [place] [phone] Peña Carver M.D. [address] [place] [phone] 11/29/2024 Hospital Encounter Post Anesthesia Care Unit in [place], [place] [address] [place] [phone] Rafal Rankin M.D. [address] [place] [phone] 12/02/2024 1:30 PM BOILER OPERATOR HELPER Comprehensive Visit [facility] in [place], [place] [address] [place] [phone] Damian Vargas, RAIL CAR REPAIRER, C.N.P., M.S.N. [address] [place] [phone] 12/26/2024 12:00 PM BOILER OPERATOR HELPER Telemedicine Department of Neurology in [place], [place] [address] [place] [phone] Oziel Odonnell M.D. [address] [place] [phone] Scheduled Procedures Name Priority Associated Diagnoses Date/Ti me TRACHEOSTOMY Paralysis Vocal Cord Bilateral Complete documented as of this encounter Visit Diagnoses Not on filedocumented in this encounter Care Teams Circuit Judge Relationship Specialty Start Date End Date Elsewhere, Pcp PCP - General Family Medicine 02/26/24 documented as of this encounter
--- OUTSIDE RECORDS SUMMARY | 2024-11-12 14:21 | XMS_ITS | Encounter Summary ---
Author Organization [facility] Address [address] [place] [address] Care Team Providers Care Chief Learning Officer Name Role Phone Elsewhere, Pcp Primary Care Provider Unavailabl e Reason for Visit * Reason Onset Date Comments Previsit Preparation 05/02/2024 DEBORAH DD Encounter Details Date Type Department Care Team (Latest Contact Info) Description 05/02/2024 9:00 AM CDT Clinical Communication Virtual Review in [place], [place] [address] [place] [address] Previsit Preparation (DEBORAH DD) Social History Tobacco [...] your living situation today? I have a [facility] place [facility] live 03/12/2024 Sex and Gender Information Value Date Recorded Sex Assigned at Male 03/12/2024 1:38 PM CDT Legal Sex Male 8:22 AM TRAINING SYSTEMS OFFICER Gender Identity Male 03/12/2024 1:38 PM CDT Sexual Orientation Straight 03/12/2024 1: 38 PM CDT documented as of this encounter Plan of Treatment Upcoming Encounters Date Type Department Care Team (Latest Contact Info) Description 11/15/2024 11:15 AM TRAINING SYSTEMS OFFICER Clinical Communication Virtual Review in [place], [place] [address] [place] [address] 11/18/2024 3:00 PM TRAINING SYSTEMS OFFICER Ancillary Procedure Department of Ophthalmology in [place], [place] [address] [place] [phone] 11/18/2024 3:30 PM TRAINING SYSTEMS OFFICER Office Visit Department of Ophthalmology in [place], [place] [address] [place] [phone] Peña Carver M.D. [address] [place] [phone] 11/29/2024 Hospital Encounter Post Anesthesia Care Unit in [place], [place] [address] [place] [phone] Rafal Rankin M.D. [address] [place] [phone] 12/02/2024 1:30 PM TRAINING SYSTEMS OFFICER Comprehensive Visit [facility] in [place], [place] [address] [place] [phone] Damian Vargas, GRUPO, C.N.P., M.S.N. [address] [place] [phone] 12/26/2024 12:00 PM TRAINING SYSTEMS OFFICER Telemedicine Department of Neurology in [place], [place] [address] [place] [phone] Oziel Odonnell M.D. [address] [place] [phone] Scheduled Procedures Name Priority Associated Diagnoses Date/Ti me TRACHEOSTOMY Paralysis Vocal Cord Bilateral Complete documented as of this encounter Visit Diagnoses Not on filedocumented in this encounter Care Teams Chief Learning Officer Relationship Specialty Start Date End Date Elsewhere, Pcp PCP - General Family Medicine 02/26/24 documented as of this encounter
--- OUTSIDE RECORDS SUMMARY | 2024-11-12 14:21 | XMS_ITS | Encounter Summary ---
[facility] Address [address] [place] [phone] Care Team Providers Care Eyelet Riveter Name Role Phone Elsewhere, Pcp Primary Care Provider Unavailabl e Reason for Visit * Reason Comments Scheduling Encounter Details Date Type Department Care Team (Late st Contact Info) Description 05/09/2024 Documentation Division of Endocrinology in [place], [place] [address] [place] [phone] Lesley Reis, R.N. [address] [place] [phone] Scheduling Social History Tobacco Use Types Packs/Day [...] living situation today? I have a [facility] place to live 03/12/2024 Sex and Gender Information Value Date Recorded Sex Assigned at Male 03/12/2024 1:38 PM CDT Legal Sex Male 8:22 AM CANCELING AND CUTTING CONTROL CLERK Gender Identity Male 03/12/2024 1:38 PM CDT Sexual Orientation Straight 03/12/2024 1: 38 PM CDT documented as of this encounter Progress Notes * Lesley Reis R.N. - 05/09/2024 11:35 AM CDT Order [...] He is currently followed by dietitians at [facility]. They will need to see the [facility] Dietitian, Nurse & Provider. Patient has not been seen by [facility] before. Requesting appointments 1st available. documented in this encounter Plan of Treatment Upcoming Encounters Date Type Department Care Team (Latest Contact Info) Description 11/15/2024 11:15 AM CANCELING AND CUTTING CONTROL CLERK Clinical Communication Virtual Review in [place], [place] 200 [place] [phone] 11/18/2024 3:00 PM CANCELING AND CUTTING CONTROL CLERK Ancillary Procedure Department of Ophthalmology in [place], [place] [address] [place] [phone] 11/18/2024 3:30 PM CANCELING AND CUTTING CONTROL CLERK Office Visit Department of Ophthalmology in [place], [place] [address] [place] [phone] Peña Carver M.D. [address] [place] [phone] 11/29/2024 Hospital Encounter Post Anesthesia Care Unit in [place], [place] [address] [place] [phone] Rafal Rankin M.D. [address] [place] [phone] 12/02/2024 1:30 PM CANCELING AND CUTTING CONTROL CLERK Comprehensive Visit Center for Sleep Medicine in [place], [place] [address] [place] [phone] Damian Vargas APRN, C.N.P., M.S.N. [address] [place] [phone] 12/26/2024 12:00 PM CANCELING AND CUTTING CONTROL CLERK Telemedicine Department of Neurology in [place], [place] [address] [place] [address] [place] [phone] Oziel Odonnell M.D. [address] [place] [phone] Scheduled Procedures Name Priority Associated Diagnoses Date/Ti me TRACHEOSTOMY Paralysis Vocal Cord Bilateral Complete documented as of this encounter Visit Diagnoses Not on filedocumented in this encounter Care Teams Eyelet Riveter Relationship Specialty Start Date End Date Elsewhere, Pcp PCP - General Family Medicine 02/26/24 documented as of this encounter
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
--- OUTSIDE RECORDS SUMMARY | 2024-11-12 14:21 | XMS_ITS | Encounter Summary ---
Author Organization [facility] Address [address] [place] [address] Care Team Providers Care Bicycle Subassembler Name Role Phone Elsewhere, Pcp Primary Care Provider Unavailabl e Encounter Details Date Type Department Care Team (Latest Contact Info) Description 03/29/2024 Clinical Communication Department of Ophthalmology in [place], [place] [address] [place] [phone] Provider, Unknown Social History Tobacco Use Types Packs/Day Years Used Date Smoking Tobacco: Former Cigarettes Smokeless Tobacco: Never Alcohol Use Standard Drinks/Week Comments Not Currently 0 (1 standard drink = 0.6 oz pur e alcohol) [facility] Utilities Answer Date Recorded In the past 12 months has e [employer], gas, oil, or water [employer] threatened to shut off services in your [...] your living situation today? I have a [facility] place to live 03/12/2024 Sex and Gender Information Value Date Recorded Sex Assigned at Male 03/12/2024 1:38 PM CDT Legal Sex Male 8:22 AM COMPANY MINER BLASTING Gender Identity Male 03/12/2024 1:38 PM CDT Sexual Orientation Straight 03/12/2024 1: 38 PM CDT documented as of this encounter Plan of Treatment Upcoming Encounters Date Type Department Care Team (Latest Contact Info) Description 11/15/2024 11:15 AM COMPANY MINER BLASTING Clinical Communication Virtual Review in [place], [place] [address] [place] [address] 11/18/2024 3:00 PM COMPANY MINER BLASTING Ancillary Procedure Department of Ophthalmology in [place], [place] [address] [place] [address] 11/18/2024 3:30 PM COMPANY MINER BLASTING Office Visit Department of Ophthalmology in [place], [place] [address] [place] [phone] Peña Carver M.D. [address] [place] [phone] 11/29/2024 Hospital Encounter Post Anesthesia Care Unit in [place], [place] [address] [place] [phone] Rafal Rankin M.D. [address] [place] [phone] 12/02/2024 1:30 PM COMPANY MINER BLASTING Comprehensive Visit Center for [facility] Medicine in [place], [place] [address] [place] [phone] Damian Vargas, GRUPO, C.N.P., M.S.N. [address] [place] [phone] 12/26/2024 12:00 PM COMPANY MINER BLASTING Telemedicine Department of Neurology in [place], [place] [address] [place] [phone] Oziel Odonnell M.D. [address] [place] [phone] Scheduled Procedures Name Priority Associated Diagnoses Date/Ti me TRACHEOSTOMY Paralysis Vocal Cord Bilateral Complete documented as of this encounter Visit Diagnoses Not on filedocumented in this encounter Care Teams Bicycle Subassembler Relationship Specialty Start Date End Date Elsewhere, Pcp PCP - General Family Medicine 02/26/24 documented as of this encounter
--- OUTSIDE RECORDS SUMMARY | 2024-11-12 14:21 | XMS_ITS | Encounter Summary ---
Author Organization [facility] Address [address] [place] [address] Care Team Providers Care Accountancy Professor Name Role Phone Elsewhere, Pcp Primary Care Provider Unavailabl e Reason for Referral * Outpatient (Routine) - Closed Specialty Diagnoses / Procedures Referred By Karine velasco Referred To Contact Diagnoses Stenosis Laryngeal Tracheostomy Status (HCC) Dysphagia Procedures FL Swallow Function with Video and Speech or OT Rafal Rankin M.D. 200 [place] [address] Phone: tel: fax: [facility] Referral ID Status Reason Start Date Expiration Date Visits Re quested Visits Authorized [id number] Closed 03/13/2024 03/13/2025 1 1 Reason for Visit * Outpatient (Routine) - Canceled Specialty Diagnoses / Procedures Referred By Karine velasco Referred To Contact Diagnoses Stenosis Laryngeal Tracheostomy Status (HCC) Dysphagia Procedures FL Esophagram Single Contrast Rafal Rankin M.D. [address] [place] [address] Phone: tel: fax: [facility] Referral ID Status Reason Start Date Expiration Date V isits Requested Visits Authorized [id number] Canceled 03/13/2024 03/13/2025 1 1 Encounter Details Date Type Department Care Team (Latest Contact Info) Description 03/22/2024 1:49 PM CDT - 03/22/2024 11:59 PM CDT Hospital Encounter Department of Radiology, [facility], in [place], [place] [address] [place] [phone] Rafal Rankin M.D. [address] [place] [phone] Bhavani Betancur M.S., CCC-DAMPER MAKER, BCS-S [address] [place] [phone] Stenosis Laryngeal; Tracheostomy Status (HCC); Dysphagia Discharge Disposition: Home or Self Care Social History Tobacco Use Types Packs/Day Years Used Date Smoking Tobacco: Former Cigarettes Smokeless Tobacco: Never Alcohol Use Standard Drinks/Week Comments Not Currently 0 (1 standard drink = 0.6 oz pur e alcohol) [facility] Utilities Answer Date Recorded In the past 12 months has e [employer], gas, oil, or water [employer] threatened to shut off services in your [...] your living situation today? I have a [facility] place to live 03/12/2024 Sex and Gender Information Value Date Recorded Sex Assigned at Male 03/12/2024 1:38 PM CDT Legal Sex Male 8:22 AM SAFETY COORDINATOR Gender Identity Male 03/12/2024 1:38 PM [...] as needed for rhinitis or allergies (Seasonal). prochlorperazine (COMPAZINE) 25 mg suppository Insert 25 mg into the rectum every 12 (twelve) hours as needed. 01/29/2024 tadalafiL (CIALIS) 5 mg tablet Administer 5 mg via gastric tube daily. traZODone (DESYREL) 50 mg tablet 50 mg by g-tube route at bedtime. 10/10/2023 UNABLE TO FIND 1 each as needed [...] (Latest Contact Info) Description 11/15/2024 11:15 AM SAFETY COORDINATOR Clinical Communication Virtual Review in [place], [place] 200 [place] [address] 11/18/2024 3:00 PM SAFETY COORDINATOR Ancillary Procedure Department of Ophthalmology in [place], [place] [address] [place] [phone] 11/18/2024 3:30 PM SAFETY COORDINATOR Office Visit Department of Ophthalmology in [place], [place] [address] [place] [phone] Peña Carver M.D. [address] [place] [phone] 11/29/2024 Hospital Encounter Post Anesthesia Care Unit in [place], [place] [address] [place] [phone] Rafal Rankin M.D. [address] [place] [phone] 12/02/2024 1:30 PM SAFETY COORDINATOR Comprehensive Visit [facility] in [place], [place] [address] [place] [phone] Damian Vargas, GRUPO, C.N.P., M.S.N. [address] [place] [phone] 12/26/2024 12:00 PM SAFETY COORDINATOR Telemedicine Department of Neurology in [place], [place] [address] [place] [phone] Oziel Odonnell M.D. [address] [place] [address] Scheduled Procedures Name Priority Associated Diagnoses Date/Ti me TRACHEOSTOMY Paralysis Vocal Cord Bilateral Complete documented as of this encounter Procedures Procedure Name Priority Date/Time Associated Diagnosis Comments FL SWALLOW FUNCTION WITH VIDEO AND SPEECH OR OT FOR RST RAD - Routine (most inpatients and all outpatients) 03/22/2024 2:46 PM CDT Stenosis Laryngeal Tracheostomy Status (HCC) Dysphagia documented in this encounter Results * FL [...] speech pathology note forfurther details and recommendations. us Rafal Rankin M.D. [employer] FLUOROSCOPY PROCEDURES Final Result documented in this encounter Visit Diagnoses Diagnosis Stenosis Laryngeal Tracheostomy Status (HCC) Dysphagia documented in this encounter Administered Medications Inactive Administered Medications - up to 3 most recent administrations Medication Order MAR Action Action Date Dose Rate Site barium 81 % (w/w) oral powder for suspension 20 g (VARIBAR THIN LIQUID) 20 g (50 mL), oral, Once in imaging, contrast, Starting on Mon03/22/24 at 1449, For 1 dose Given 03/22/2024 2:49 PM CDT 20 g documented in this encounter Care Teams Accountancy Professor Relationship Specialty Start Date End Date Elsewhere, Pcp PCP - General Family Medicine 02/26/24 documented as of this encounter
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
--- OUTSIDE RECORDS SUMMARY | 2024-11-12 14:22 | XMS_ITS | Encounter Summary ---
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 AM CDT 1 spray Given 02/27/2024 8:54 PM CDT 1 spray Given 02/27/2024 9:31 AM CDT 1 spray NaCl 0.9 % bolus 1,000 mL 1,000 mL, intravenous, at 1,000 mL/hr, Administer over 1 Hours, Once, On Mon02/26/24 at 2218, For 1 dose New Bag 02/26/2024 10:50 PM CDT 1,000 mL 1000 mL/hr polyethylene glycol powder packet 17 g (MIRALAX) 17 g, oral, Daily PRN, constipation, Starting on Mon02/27/24 at 0046, Ordered sequence of administration: polyethylene glycol, then bisacodyl until BM achieved. Avoid mixing with starch-based thickened liquids. promethazine-codeine syrup 5 mL (PHENERGAN with CODEINE) 5 mL, gastric tube, Daily at bedtime, First dose on Mon02/27/24 at 2100 Given 02/27/2024 8:54 PM CDT 5 mL traZODone tablet 50 mg (DESYREL) 50 mg, gastric tube, Daily at bedtime, First dose on Mon02/27/24 at 2100 Given 02/27/2024 8:54 PM CDT 50 mg documented in this encounter Active and Recently Administered Medications Times are shown in CDT. Scheduled Medication Order 02/26/2024 02/27/2024 02/28/2024 acetaminophen tablet 1,000 mg (TYLENOL) (COMPLETED) 1,000 mg, oral, Once, On Mon02/26/24 at 2301, For 1 dose 8 (Given - Provider: Kishore Hamilton REdithN. - Comment: given via GTube) amoxicillin-pot clavulanate 875-125 mg per tablet 1 tablet (AUGMENTIN) 1 tablet, gastric tube, Every 12 hours scheduled, First dose on Mon02/27/24 at 2100, Drug Monitoring Program: Pharmacist to adjust medication dosing based on indication and drug clearance factors., Indications: Respiratory tract infection, community acquired 2053 (Given - Provider: Shiela Bray REdithNEdith) 08 (Given - Provider: Annalee Benites REdithNEdith) ampicillin-sulbactam in NaCl 0.9% 100 mL IVPB (Mini-Bag Plus) 3 g (UNASYN) (COMPLETED) 3 g, intravenous, at 400 mL/hr, Administer over 15 Minutes, Once, On Mon02/26/24 at 2217, For 1 dose, Mini-Bag Plus bag, Drug Monitoring Program: Pharmacist to adjust medication dosing based on indication and drug clearance factors., Indications: Respiratory tract infection, healthcare associated 2250 (New Bag - Provider: Kishore Hamilton R.N.)2318 (Stopped - Provider: Kishore Hamilton REdithNEdith) cefTRIAXone in dextrose (iso osm) IVPB 2 g (ROCEPHIN) (CANCELED) 2 g, intravenous, at 200 mL/hr, Administer over 15 Minutes, Every 24 hours, First dose on Mon02/27/24 at 0515, Drug Monitoring Program: Pharmacist to adjust medication dosing based on indication and drug clearance factors., Indications: Respiratory tract infection, community acquired 0507 (New Bag - Provider: Juhi Strickland R.N.) escitalopram solution 5 mg (LEXAPRO) 5 mg, gastric tube, Daily, First dose on Mon02/27/24 at 0900 930 (Given - Provider: Fanny De Jesus R.N.) 816 (Given - Provider: Sd MenendezN.) esomeprazole DR capsule 40 mg (NexIUM) 40 mg, gastric tube, 2 times daily, First dose on Mon02/27/24 at 0900, Either sprinkled on soft food or administered via feeding tube. Do NOT crush or chew. Capsule may be opened and the contents taken without crushing or chewing. See tube feeding guidelines for tube feeding administration instructions. 930 (Given - Provider: Fnany De Jesus RKaterina.)2053 (Given - Provider: Shiela Bray REdithN.) 816 (Given - Provider: Annalee Benites REdithN.) finasteride tablet 5 mg (PROSCAR) 5 mg, gastric tube, Daily, First dose on Mon02/27/24 at 0900, See tube feeding guidelines for tube feeding administration instructions. 930 (Given - Provider: Fanny De Jesus R.N.) 816 (Given - Provider: Annalee Benites REdithN.) fluticasone propionate 50 mcg/actuation nasal spray 1 spray (FLONASE) 1 spray, each nostril, 2 times daily, First dose on Mon02/27/24 at 0900 930 (Given - Provider: Fanny De Jesus R.N.)2053 (Given - Provider: Sd McintoshN.) 0818 (Given - Provider: Annalee Benites REdithN.) NaCl 0.9 % bolus 1,000 mL (COMPLETED) 1,000 mL, intravenous, at 1,000 mL/hr, Administer over 1 Hours, Once, On Mon02/26/24 at 2218, For 1 dose 2250 (New Bag - Provider: Kishore Hamilton R.N.)2350 (Due: Stopped - Provider: Kishore Hamilton R.N.) promethazine-codeine syrup 5 mL (PHENERGAN with CODEINE) 5 mL, gastric tube, Daily at bedtime, First dose on Mon02/27/24 at 2099 2053 (Given - Provider: Shiela Bray R.N.) traZODone tablet 50 mg (DESYREL) 50 mg, gastric tube, Daily at bedtime, First dose on Mon02/27/24 at 2099 2053 (Given - Provider: Shiela Bray R.N.) PRN Medication Order 02/26/2024 02/27/2024 02/28/2024 acetaminophen tablet 650 mg (TYLENOL) 650 mg, gastric tube, Every 6 hours PRN, mild pain or score 1-3 of 10, Starting on Mon02/27/24 at 0041 polyethylene glycol powder packet 17 g (MIRALAX) 17 g, oral, Daily PRN, constipation, Starting on Mon02/27/24 at 0046, Ordered sequence of administration: polyethylene glycol, then bisacodyl until BM achieved. Avoid mixing with starch-based thickened liquids. prochlorperazine suppository 25 mg (COMPAZINE) 25 mg, rectal, Every 12 hours PRN, nausea, vomiting, Starting on Mon02/27/24 at 0042 documented in this encounter Additional Health Concerns Infection Onset Date Last Indicated Resolved Time COVID19 Pending 02/26/2024 02/26/2024 02/27/2024 1 2:49 AM CDT documented as of this encounter Care Teams Call Center Consultant Relationship Specialty Start Date End Date Elsewhere, Pcp PCP - General Family Medicine 02/26/24 documented as of this encounter
--- OUTSIDE RECORDS SUMMARY | 2024-11-12 14:22 | XMS_ITS | Encounter Summary ---
Author Organization [facility] Address [address] [place] [address] Care Team Providers Care Safety Pin Assembling Machine Operator Name Role Phone Elsewhere, Pcp Primary Care Provider Unavailabl e Reason for Visit * Reason Onset Date Comments OSM - Outside Materials 02/19/2024 Encounter Details Date Type Department Care Team (Latest Contact Info) Description 02/19/2024 Clinical Communication Department of Otorhinolaryngology in [place], [place] [address] [place] [address] Prescheduling, Provider OSM - Outside Materials Social History Tobacco Use Types Packs/Day Years Used Date Smoking Tobacco: Never Assessed [facility] Utilities Answer Date Recorded In the past 12 months has e [employer], gas, oil, or water [employer] threatened to shut off services in your [...] PM CDT Legal Sex Male 8:22 AM RETURNING OFFICER Gender Identity Male 03/12/2024 1:38 PM CDT Sexual Orientation Straight 03/12/2024 1: 38 PM CDT documented as of this encounter Plan of Treatment Upcoming Encounters Date Type Department Care Team (Latest Contact Info) Description 11/15/2024 11:15 AM RETURNING OFFICER Clinical Communication Virtual Review in [place], [place] [address] [place] [phone] 11/18/2024 3:00 PM RETURNING OFFICER Ancillary Procedure Department of Ophthalmology in [place], [place] [address] [place] [address] 11/18/2024 3:30 PM RETURNING OFFICER Office Visit Department of Ophthalmology in [place], [place] [address] [place] [phone] Peña Carver M.D. [address] [place] [phone] 11/29/2024 Hospital Encounter Post Anesthesia Care Unit in [place], [place] [address] [place] [phone] Rafal Rankin M.D. [address] [place] [phone] 12/02/2024 1:30 PM RETURNING OFFICER Comprehensive Visit [facility] in [place], [place] [address] [place] [phone] Damian Vargas, GRUPO, C.N.P., M.S.N. [address] [place] [phone] 12/26/2024 12:00 PM RETURNING OFFICER Telemedicine Department of Neurology in [place], [place] [address] [place] [phone] Oziel Odonnell M.D. 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
--- OUTSIDE RECORDS SUMMARY | 2024-11-12 14:22 | XMS_ITS | Encounter Summary ---
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 Encounter Details Date Type Department Care Team (Latest Contact Info) Description 02/01/2024 Clinical Communication Department of Physical Medicine and Rehabilitation in [place], [place] [address] [place] [address] Gloria Mcarthur, REdithNEdith [address] [place] [phone] RPS TBI Social History Tobacco Use Types Packs/Day Years Used Date Smoking Tobacco: Never Assessed [facility] Utilities Answer Date Recorded In the past [...] PM CDT Legal Sex Male 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 WOODWIND REEDS CUTTER Gender Identity Male 03/12/2024 1:38 PM CDT Sexual Orientation Straight 03/12/2024 1: 38 PM CDT documented as of this encounter Plan of Treatment Upcoming Encounters Date Type Department Care Team (Latest Contact Info) Description 11/15/2024 11:15 AM WOODWIND REEDS CUTTER Clinical Communication Virtual Review in [place], [place] [address] [place] [address] 11/18/2024 3:00 PM WOODWIND REEDS CUTTER Ancillary Procedure Department of Ophthalmology in [place], [place] [address] [place] [phone] 11/18/2024 3:30 PM WOODWIND REEDS CUTTER Office Visit Department of Ophthalmology in [place], [place] [address] [place] [phone] Peña Carver M.D. [address] [place] [phone] 11/29/2024 Hospital Encounter Post Anesthesia Care Unit in [place], [place] [address] [place] [phone] Rafal Rankin M.D. [address] [place] [phone] 12/02/2024 1:30 PM WOODWIND REEDS CUTTER Comprehensive Visit [facility] in [place], [place] [address] [place] [phone] Damian Vargas, GRUPO, C.N.P., M.S.N. [address] [place] [phone] 12/26/2024 12:00 PM WOODWIND REEDS CUTTER Telemedicine Department of Neurology in [place], [place] [address] [place] [phone] Oziel Odonnell M.D. 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
== END 2025-03-13 12:57 | disposition home or self-care (01) ==
PROVIDERS: PCP Family Medicine; Visit Provider Family Medicine
DX: M25.511 Pain in right shoulder (principal); M25.512 Pain in left shoulder; M62.50 Muscle wasting and atrophy, not elsewhere classified, unspecified site; E46 Unspecified protein-calorie malnutrition; M25.562 Pain in left knee; Z51.89 Encounter for other specified aftercare
CPT/HCPCS: 97110; 97112; 97140; 97163

== ENCOUNTER 2025-05-30 09:30 | Outpatient (RCR) | payer MEDICARE, BC, SELFPAY | END 2025-09-27 23:59 | disposition home or self-care (01) | PROVIDERS: PCP Family Medicine; Visit Provider Family Medicine | DX: M62.81 Muscle weakness (generalized) (principal); M62.50 Muscle wasting and atrophy, not elsewhere classified, unspecified site; E46 Unspecified protein-calorie malnutrition; M25.512 Pain in left shoulder; M25.511 Pain in right shoulder; Z51.89 Encounter for other specified aftercare | CPT/HCPCS: 97110; 97112; 97162 ==